=== PATIENT | male | born 1940 | race Caucasian/White ===

== ENCOUNTER 2017-03-05 16:37 | Inpatient (IN) | payer MEDICARE, BC ==
[~2017-03-05] VITALS: Ht 182.9 cm; Wt 105.9 kg
[2017-03-05 16:39] VITALS: BP 152/90; PULSE 67; RESP 12; TEMP 98.2; O2SAT 99
[2017-03-05] MEDS ORDERED: FLUT1INH7 INH (17:20)
[2017-03-05] MEDS ORDERED: ESOM1CAP16 PO (17:20)
[2017-03-05] MEDS ORDERED: LISI10TA3 PO (17:20)
[2017-03-05] MEDS ORDERED: PRAS10TA PO (17:20)
[2017-03-05] MEDS ORDERED: METO100T PO (17:20)
[2017-03-05] MEDS ORDERED: ASPI81CH6 CHEW (17:20)
[2017-03-05] MEDS ORDERED: ATOR80TA45 PO (17:20)
[2017-03-05] MEDS ORDERED: VENTAER INH (17:20)
[2017-03-05] MEDS ORDERED: GABA300C5 PO (17:20)
[2017-03-05] MEDS ORDERED: FINA5TAB2 PO (17:20)
[2017-03-05] MEDS ORDERED: CRANCAP2 PO (17:22)
[2017-03-05] MEDS ORDERED: MIRA3350 PO (17:22)
[2017-03-05] MEDS ORDERED: FISH1000 (17:22)
[2017-03-05] MEDS ORDERED: MULTTAB67 PO (17:22)
--- NOTE | 2017-03-05 18:00 | RADRPT ---
EXAM DATE/TIME: 03/05/2017 17:45 [facility] COMPARISON: No previous studies available for comparison. INDICATIONS : Shortness of breath. MEDICAL HISTORY : Hypertension. Gastroesophageal reflux disease. Myocardial infarction. Coronary artery disease, As thma. SURGICAL HISTORY : Cholecystectomy. Disc replaced. ENCOUNTER: Initial ACUITY: 2 days PAIN SCORE: 3/10 LOCATION: Bilateral chest FINDINGS: A single view of the chest demonstrates minimal bibasilar linear densities. Heart borderline enlarged . The cardiomediastinal contours are unremarkable. Osseous structures are intact. CONCLUSION: Bibasilar subsegmental atelectasis. Bradley Simmons MD on March 05, 2017 at 17:58 Board Certified Radiologist. This report was verified electronically.
--- NOTE | 2017-03-05 18:06 | PD ---
HPI Chief Complaint: Respiratory Distress Time Seen by Provider: 17:32 Travel History International Travel<30 days: No Contact w/Intl Traveler<30days: No Traveled to known affect area: No History of Present Illness HPI 68-year-old male with a history of CAD with stents , asthma, YOON on CPAP presents emergency department complaining of increased shortness of breath that started about 2 PM today. Patient states that he was sitting in his chair when this episode started. States he took his Ventolin and had worsening of his symptoms. Says this episode resolved on its own but still feels more short of breath than normal. Denies chest pain, nausea, vomiting, diarrhea, abdominal pain, back pain, unusual cough. Says he takes Breo in Ventolin for his asthma. Says he saw his research quality assurance specialist in November where he was diagnosed with asthma and he has due for stress test this month with his mobile architect. Patient does not know his ejection fraction on echocardiogram. He is on Effient daily after his cardiac stent placement. Patient also says that he has "too many red blood cells" in receives regular blood draws for this. Also states that he has an ' anterior blood clot' to his posterior left knee. Denies leg pain PFSH Past Medical History Asthma: Yes Blood Disorders: Yes Cardiovascular Problems: Yes Coronary Artery Disease: Yes GERD: Yes Hypertension: Yes Medical other: Yes (CLOGGED ARTERY L LEG) Myocardial Infarction: Yes Tetanus Vaccination: Unknown Influenza Vaccination: Yes Past Surgical History Cholecystectomy: Yes Coronary Stent: Yes (X2) Neurologic Surgery: Yes (HERNIATED DISC SX, DISC REPLACEMENT) Social History Alcohol Use: Yes (BEER DAILY) Tobacco Use: No Substance Use: No Allergies-Medications (Allergen,Severity, Reaction): Coded Allergies: chocolate flavor (Verified Allergy, Unknown, 03/05/17) milk (Verified Allergy, Unknown, 03/05/17) orange juice (Verified Allergy, Unknown, 03/05/17) peanut (Verified Allergy, Unknown, 03/05/17) Uncoded Allergies: granulated sugar (Allergy, Unknown, 03/05/17) Reported Meds & Prescriptions Reported Meds & Active Scripts Active Reported Multiple Vitamin 1 Tab 1 Tab PO DAILY Fish Oil ([place]-3 Fatty Acids) 340 Mg-1,000 Mg Cap Cranberry Urinary Comfort (Vitamins C & E) 1 Cap 2 Cap PO DAILY Miralax Powder (Polyethylene Glycol 3350 Powder) 17 Gm Powd 17 Gm PO DAILY Mix and dissolve one measuring cap-ful (17 grams) in water or juice. Ventolin Hfa 18 GM Inh (Albuterol Sulfate) 90 Mcg/Act Aer 2 Puff INH Q4-6H PRN Breo Ellipta Inh (Fluticasone/Vilanterol) 200-25 Mcg/Act Inh 1 Puff INH DAILY Use daily at the same time. Finasteride 5 Mg Tab 5 Mg PO DAILY Do not crush. Lisinopril 10 Mg Tab 10 Mg PO DAILY Atorvastatin (Atorvastatin Calcium) 80 Mg Tab 80 Mg PO HS Gabapentin 300 Mg Cap 300 Mg PO BID Aspirin Low Dose (Aspirin) 81 Mg Chew 81 Mg CHEW DAILY Metoprolol Tartrate 100 Mg Tab 150 Mg PO DAILY Effient (Prasugrel) 10 Mg Tab 10 Mg PO DAILY Esomeprazole DR 40 Mg Capdr 40 Mg PO DAILY Review of Systems Except as stated in HPI: all other systems reviewed are Neg Physical Exam Narrative GENERAL: WD, WN in NAD, 5-6 word dyspnea SKIN: Warm and dry. HEAD: Atraumatic. Normocephalic. EYES: Pupils equal and round. No scleral icterus. No injection or drainage. ENT: No nasal bleeding or discharge. Mucous membranes pink and moist. NECK: Trachea midline. No JVD. No lymphadenopathy CARDIOVASCULAR: Regular rate and rhythm. RESPIRATORY: No accessory muscle use. Clear to auscultation. Breath sounds equal bilaterally. GASTROINTESTINAL: Abdomen soft, non-tender, nondistended. MUSCULOSKELETAL: Extremities without clubbing, cyanosis, or edema. No obvious deformities. Homans sign negative bilaterally NEUROLOGICAL: Awake and alert. No obvious cranial nerve deficits. Motor grossly within normal limits. Five out of 5 muscle strength in the arms and legs. Normal speech. PSYCHIATRIC: Appropriate mood and affect; insight and judgment normal. Data Data Last Documented VS Vital Signs Date Time Temp Pulse Resp B/P (MAP) Pulse Ox O2 Delivery O2 Flow Rate FiO2 03/05/17 17:15 65 18 96 Room Air 03/05/17 16:39 98.2 152/90 (110) Orders Orders Complete Blood Count With Diff (03/05/17 17:39) Comprehensive Metabolic Panel (03/05/17 17:39) B-Type Natriuretic Peptide (03/05/17 17:39) Act Partial Throm Time (Ptt) (03/05/17 17:39) Prothrombin Time / Inr (Pt) (03/05/17 17:39) Magnesium (Mg) (03/05/17 17:39) Troponin I (03/05/17 17:39) Urinalysis - C+S If Indicated (03/05/17 17:39) Influenzae A/B Antigen (03/05/17 17:39) Iv Access Insert/Monitor (03/05/17 17:39) Electrocardiogram (03/05/17 17:39) Ecg Monitoring (03/05/17 17:39) Oximetry (03/05/17 17:39) Chest, Single Ap (03/05/17 17:39) D-Dimer (03/05/17 18:06) Ct Pulmonary Angiogram (03/05/17 19:20) Iohexol 350 Inj (Omnipaque 350 Inj) (03/05/17 20:00) Admit Order (Ed Use Only) (03/05/17 20:50) Labs Laboratory Tests Test 03/05/17 17:44 03/05/17 19:30 White Blood Count 8.2 TH/MM3 Red Blood Count 5.42 MIL/MM3 Hemoglobin 15.9 GM/DL Hematocrit 47.4 % Mean Corpuscular Volume 87.5 FL Mean Corpuscular Hemoglobin 29.3 PG Mean Corpuscular Hemoglobin Concent 33.5 % Red Cell Distribution Width 14.2 % Platelet Count 252 TH/MM3 Mean Platelet Volume 9.5 FL Neutrophils (%) (Auto) 71.6 % Lymphocytes (%) (Auto) 18.3 % Monocytes (%) (Auto) 6.8 % Eosinophils (%) (Auto) 2.3 % Basophils (%) (Auto) 1.0 % Neutrophils # (Auto) 5.9 TH/MM3 Lymphocytes # (Auto) 1.5 TH/MM3 Monocytes # (Auto) 0.6 TH/MM3 Eosinophils # (Auto) 0.2 TH/MM3 Basophils # (Auto) 0.1 TH/MM3 CBC Comment DIFF FINAL Differential Comment Prothrombin Time 10.8 SEC Prothromb Time International Ratio 1.1 RATIO Activated Partial Thromboplast Time 25.7 SEC D-Dimer Quantitative (PE/DVT) 2.51 MG/L FEU Blood Urea Nitrogen 21 MG/DL Creatinine 1.16 MG/DL Random Glucose 82 MG/DL Total Protein 8.6 GM/DL Albumin 4.1 GM/DL Calcium Level 9.1 MG/DL Magnesium Level 2.4 MG/DL Alkaline Phosphatase 62 U/L Aspartate Amino Transf (AST/SGOT) 20 U/L Alanine Aminotransferase (ALT/SGPT) 37 U/L Total Bilirubin 0.4 MG/DL Sodium Level 142 MEQ/L Potassium Level 3.9 MEQ/L Chloride Level 109 MEQ/L Carbon Dioxide Level 25.8 MEQ/L Anion Gap 7 MEQ/L Estimat Glomerular Filtration Rate 61 ML/MIN Troponin I LESS THAN 0.02 NG/ML B-Type Natriuretic Peptide 34 PG/ML Urine Color YELLOW Urine Turbidity CLEAR Urine pH 6.0 Urine Specific [place] 1.016 Urine Protein NEG mg/dL Urine Glucose (UA) NEG mg/dL Urine Ketones NEG mg/dL Urine Occult Blood NEG Urine Nitrite NEG Urine Bilirubin NEG Urine Urobilinogen LESS THAN 2.0 MG/DL Urine Leukocyte Esterase NEG Urine RBC 1 /hpf Urine WBC 1 /hpf Urine Squamous Epithelial Cells <1 /hpf Urine Mucus FEW /lpf Microscopic Urinalysis Comment CULT NOT INDICATED Urine Opiates Screen NEG Urine Barbiturates Screen NEG Urine Amphetamines Screen NEG Urine Benzodiazepines Screen NEG Urine Cocaine Screen NEG Urine Cannabinoids Screen NEG MDM Medical Decision Making Medical Screen Exam Complete: Yes Emergency Medical Condition: Yes Differential Diagnosis asthma exacerbation, NSTEMI, PE Narrative Course 68-year-old male with a history of CAD with stents , asthma, YOON on CPAP presents emergency department complaining of increased shortness of breath that started about 2 PM today. Patient states that he was sitting in his chair when this episode started. States he took his Ventolin and had worsening of his symptoms. Says this episode resolved on its own but still feels more short of breath than normal. Denies chest pain, nausea, vomiting, diarrhea, abdominal pain, back pain, unusual cough. Says he takes Breo in Ventolin for his asthma. Says he saw his research quality assurance specialist in November where he was diagnosed with asthma and he has due for stress test this month with his mobile architect. Patient does not know his ejection fraction on echocardiogram. He is on Effient daily after his cardiac stent placement. Patient also says that he has "too many red blood cells" in receives regular blood draws for this. Also states that he has an ' artery blood clot' to his posterior left knee. Denies leg pain. States he did take a BASA today. Vital signs stable without tachycardia or hypoxia. EKG demonstrates sinus rhythm without ST elevation or depression. Laboratory Tests Test 03/05/17 17:44 03/05/17 19:30 White Blood Count 8.2 TH/MM3 Red Blood Count 5.42 MIL/MM3 Hemoglobin 15.9 GM/DL Hematocrit 47.4 % Mean Corpuscular Volume 87.5 FL Mean Corpuscular Hemoglobin 29.3 PG Mean Corpuscular Hemoglobin Concent 33.5 % Red Cell Distribution Width 14.2 % Platelet Count 252 TH/MM3 Mean Platelet Volume 9.5 FL Neutrophils (%) (Auto) 71.6 % Lymphocytes (%) (Auto) 18.3 % Monocytes (%) (Auto) 6.8 % Eosinophils (%) (Auto) 2.3 % Basophils (%) (Auto) 1.0 % Neutrophils # (Auto) 5.9 TH/MM3 Lymphocytes # (Auto) 1.5 TH/MM3 Monocytes # (Auto) 0.6 TH/MM3 Eosinophils # (Auto) 0.2 TH/MM3 Basophils # (Auto) 0.1 TH/MM3 CBC Comment DIFF FINAL Differential Comment Prothrombin Time 10.8 SEC Prothromb Time International Ratio 1.1 RATIO Activated Partial Thromboplast Time 25.7 SEC D-Dimer Quantitative (PE/DVT) 2.51 MG/L FEU Blood Urea Nitrogen 21 MG/DL Creatinine 1.16 MG/DL Random Glucose 82 MG/DL Total Protein 8.6 GM/DL Albumin 4.1 GM/DL Calcium Level 9.1 MG/DL Magnesium Level 2.4 MG/DL Alkaline Phosphatase 62 U/L Aspartate Amino Transf (AST/SGOT) 20 U/L Alanine Aminotransferase (ALT/SGPT) 37 U/L Total Bilirubin 0.4 MG/DL Sodium Level 142 MEQ/L Potassium Level 3.9 MEQ/L Chloride Level 109 MEQ/L Carbon Dioxide Level 25.8 MEQ/L Anion Gap 7 MEQ/L Estimat Glomerular Filtration Rate 61 ML/MIN Troponin I LESS THAN 0.02 NG/ML B-Type Natriuretic Peptide 34 PG/ML Urine Color YELLOW Urine Turbidity CLEAR Urine pH 6.0 Urine Specific [place] 1.016 Urine Protein NEG mg/dL Urine Glucose (UA) NEG mg/dL Urine Ketones NEG mg/dL Urine Occult Blood NEG Urine Nitrite NEG Urine Bilirubin NEG Urine Urobilinogen LESS THAN 2.0 MG/DL Urine Leukocyte Esterase NEG Urine RBC 1 /hpf Urine WBC 1 /hpf Urine Squamous Epithelial Cells <1 /hpf Urine Mucus FEW /lpf Microscopic Urinalysis Comment CULT NOT INDICATED DDIMER positive. Ordered CT pulmonary angiogram for evaluation of pulmonary embolism as his shortness of breath a quick onset at rest. Last Impressions CT Angiography 03/05/17 1920 Signed Impressions: Service Date/Time: Sunday, March 05, 2017 19:57 - CONCLUSION: 1. No evidence for pulmonary embolism. 2. Bibasilar densities likely atelectasis. 3. Coronary artery calcifications. 4. Mild thoracic aortic aneurysm measures 4.3 cm. Bradley Simmons MD Chest X-Ray 03/05/17 1739 Signed Impressions: Service Date/Time: Sunday, March 05, 2017 17:45 - CONCLUSION: Bibasilar subsegmental atelectasis. Bradley Simmons MD Pt does not recall a history of a diagnosis of thoracic aortic aneurysm however , he is a poor historian. His is not available to answer my question regarding the chronicity of this. Nitro paste administered for possible ACS-induced SOB. Pt required O2 administration today. Note that he does not normally require O2 at home. Patient will be admitted to observation for shortness of breath with a history of significant coronary artery disease. In addition, he is requiring oxygen use in the ED secondary to SOB. He normally does not require oxygen therapy at home. Diagnosis Primary Impression: Shortness of breath at rest Admitting Information Admitting Physician Requests: Observation Condition: Stable Sharla Balbuena Mar 05, 2017 18:06
[2017-03-05 18:12] LABS: AUTOMATED NEUTROPHIL # 5.9 TH/MM3 (1.8-7.7); BASOPHIL # 0.1 TH/MM3 (0-0.2); EOSINOPHIL # 0.2 TH/MM3 (0-0.4); EOSINOPHIL % 2.3 % (0.0-4.0); HEMATOCRIT 47.4 % (39.0-51.0); HEMOGLOBIN 15.9 GM/DL (13.0-17.0); LYMPH % 18.3 % (9.0-44.0); LYMPHOCYTE # 1.5 TH/MM3 (1.0-4.8); MEAN CELL VOLUME 87.5 FL (80.0-100.0); MEAN CORPUSCULAR HEMOGLOBIN 29.3 PG (27.0-34.0); MEAN CORPUSCULAR HGB CONC 33.5 % (32.0-36.0); MEAN PLATELET VOLUME 9.5 FL (7.0-11.0); MONO % 6.8 % (0.0-8.0); MONOCYTE # 0.6 TH/MM3 (0-0.9); NEUT % 71.6 % (16.0-70.0); PLATELET COUNT 252 TH/MM3 (150-450); RED BLOOD COUNT 5.42 MIL/MM3 (4.50-5.90); RED CELL DISTRIBUTION WIDTH 14.2 % (11.6-17.2); WHITE BLOOD COUNT 8.2 TH/MM3 (4.0-11.0)
[2017-03-05 18:13] LABS: INTERNATIONAL NORMALIZED RATIO 1.1 RATIO; PROTHROMBIN TIME - PATIENT 10.8 SEC (9.8-11.6)
[2017-03-05 18:24] LABS: ALBUMIN 4.1 GM/DL (3.4-5.0); ALT (GPT) 37 U/L (12-78); AST (GOT) 20 U/L (15-37); BICARBONATE 25.8 MEQ/L (21.0-32.0); BLOOD UREA NITROGEN 21 MG/DL (7-18); CALCIUM 9.1 MG/DL (8.5-10.1); CHLORIDE 109 MEQ/L (98-107); CREATININE 1.16 MG/DL (0.60-1.30); GLOMERULAR FILTRATION RATE 61 ML/MIN (>89); GLUCOSE,RANDOM 82 MG/DL (74-106); MAGNESIUM 2.4 MG/DL (1.5-2.5); SODIUM (NA) 142 MEQ/L (136-145)
[2017-03-05 18:28] LABS: ALKALINE PHOSPHATASE 62 U/L (45-117); TOTAL BILIRUBIN ADULT 0.4 MG/DL (0.2-1.0); TOTAL PROTEIN 8.6 GM/DL (6.4-8.2); TROPONIN I LESS THAN 0.02 NG/ML (0.02-0.05)
--- NOTE | 2017-03-05 19:21 | PD ---
Data Data Last Documented VS Vital Signs Date Time Temp Pulse Resp B/P (MAP) Pulse Ox O2 Delivery O2 Flow Rate FiO2 03/05/17 17:15 65 18 96 Room Air 03/05/17 16:39 98.2 152/90 (110) Orders Orders Complete Blood Count With Diff (03/05/17 17:39) Comprehensive Metabolic Panel (03/05/17 17:39) B-Type Natriuretic Peptide (03/05/17 17:39) Act Partial Throm Time (Ptt) (03/05/17 17:39) Prothrombin Time / Inr (Pt) (03/05/17 17:39) Magnesium (Mg) (03/05/17 17:39) Troponin I (03/05/17 17:39) Urinalysis - C+S If Indicated (03/05/17 17:39) Influenzae A/B Antigen (03/05/17 17:39) Iv Access Insert/Monitor (03/05/17 17:39) Electrocardiogram (03/05/17 17:39) Ecg Monitoring (03/05/17 17:39) Oximetry (03/05/17 17:39) Chest, Single Ap (03/05/17 17:39) D-Dimer (03/05/17 18:06) Ct Pulmonary Angiogram (03/05/17 19:20) Iohexol 350 Inj (Omnipaque 350 Inj) (03/05/17 20:00) Admit Order (Ed Use Only) (03/05/17 20:50) Labs Laboratory Tests Test 03/05/17 17:44 03/05/17 19:30 White Blood Count 8.2 TH/MM3 Red Blood Count 5.42 MIL/MM3 Hemoglobin 15.9 GM/DL Hematocrit 47.4 % Mean Corpuscular Volume 87.5 FL Mean Corpuscular Hemoglobin 29.3 PG Mean Corpuscular Hemoglobin Concent 33.5 % Red Cell Distribution Width 14.2 % Platelet Count 252 TH/MM3 Mean Platelet Volume 9.5 FL Neutrophils (%) (Auto) 71.6 % Lymphocytes (%) (Auto) 18.3 % Monocytes (%) (Auto) 6.8 % Eosinophils (%) (Auto) 2.3 % Basophils (%) (Auto) 1.0 % Neutrophils # (Auto) 5.9 TH/MM3 Lymphocytes # (Auto) 1.5 TH/MM3 Monocytes # (Auto) 0.6 TH/MM3 Eosinophils # (Auto) 0.2 TH/MM3 Basophils # (Auto) 0.1 TH/MM3 CBC Comment DIFF FINAL Differential Comment Prothrombin Time 10.8 SEC Prothromb Time International Ratio 1.1 RATIO Activated Partial Thromboplast Time 25.7 SEC D-Dimer Quantitative (PE/DVT) 2.51 MG/L FEU Blood Urea Nitrogen 21 MG/DL Creatinine 1.16 MG/DL Random Glucose 82 MG/DL Total Protein 8.6 GM/DL Albumin 4.1 GM/DL Calcium Level 9.1 MG/DL Magnesium Level 2.4 MG/DL Alkaline Phosphatase 62 U/L Aspartate Amino Transf (AST/SGOT) 20 U/L Alanine Aminotransferase (ALT/SGPT) 37 U/L Total Bilirubin 0.4 MG/DL Sodium Level 142 MEQ/L Potassium Level 3.9 MEQ/L Chloride Level 109 MEQ/L Carbon Dioxide Level 25.8 MEQ/L Anion Gap 7 MEQ/L Estimat Glomerular Filtration Rate 61 ML/MIN Troponin I LESS THAN 0.02 NG/ML B-Type Natriuretic Peptide 34 PG/ML Urine Color YELLOW Urine Turbidity CLEAR Urine pH 6.0 Urine Specific [place] 1.016 Urine Protein NEG mg/dL Urine Glucose (UA) NEG mg/dL Urine Ketones NEG mg/dL Urine Occult Blood NEG Urine Nitrite NEG Urine Bilirubin NEG Urine Urobilinogen LESS THAN 2.0 MG/DL Urine Leukocyte Esterase NEG Urine RBC 1 /hpf Urine WBC 1 /hpf Urine Squamous Epithelial Cells <1 /hpf Urine Mucus FEW /lpf Microscopic Urinalysis Comment CULT NOT INDICATED Urine Opiates Screen NEG Urine Barbiturates Screen NEG Urine Amphetamines Screen NEG Urine Benzodiazepines Screen NEG Urine Cocaine Screen NEG Urine Cannabinoids Screen NEG [facility] Medical Record Reviewed: Yes Supervised Visit with FIDEL: Yes Interpretation(s) Last Impressions CT Angiography 03/05/17 1920 Signed Impressions: Service Date/Time: Sunday, March 05, 2017 19:57 - CONCLUSION: 1. No evidence for pulmonary embolism. 2. Bibasilar densities likely atelectasis. 3. Coronary artery calcifications. 4. Mild thoracic aortic aneurysm measures 4.3 cm. Bradley Simmons MD Chest X-Ray 03/05/17 1739 Signed Impressions: Service Date/Time: Sunday, March 05, 2017 17:45 - CONCLUSION: Bibasilar subsegmental atelectasis. Bradley Simmons MD Narrative Course I, Dr. Ward, have reviewed the advance practice practitioner's documentation and am in agreement, met with the patient face to face, made the diagnosis, and the medical decision making was done by me. The patient was initially evaluated by Tori. Please see their complete history and physical. *My assessment and Findings: The patient presents with a history of shortness of breath that worsened earlier today. During the course of the patients emergency department visit, the patients history, examination, and differential diagnosis were reviewed with the patient. The patient was placed on a child monitor with oximetry and frequent blood pressure monitoring. The patient had IV access obtained and blood work sent for analysis. An EKG done on arrival shows a sinus rhythm heart rate of 61 , no acute ST segment elevation or depression, T waves are inverted in lead 3 and aVF. The patient was initially provided nitroglycerin 1 inch the chest wall. The patient reports that he did take his usual aspirin earlier today. The patients laboratory studies were reviewed and remarkable for a white count of 8.2, hemoglobin 15.9, platelets 252 with 71.6 neutrophils, CMP is remarkable for chloride of 109, BUN 21, GFR 61, troponin less than 0.02, BNP 34, PT PTT within normal limits, d-dimer elevated at 2.51, CTA to rule out PE was ordered. Urinalysis is unremarkable. Radiology studies were reviewed and remarkable for a chest x-ray that shows a bi -basilar subsegmental atelectasis, CTA shows no evidence for pulmonary embolism , by bibasilar densities likely atelectasis, coronary artery calcifications noted, mild thoracic aortic aneurysm measuring 4.3 cm. The patient has a history of coronary artery disease. The patient will be admitted to the hospital for shortness of breath requiring supplemental oxygen, rule out serial cardiac enzyme protocol given that the shortness of breath could be related to an atypical acute coronary syndrome. The patients results were discussed with the patient, including the plan of care. I explained that further testing and/ or monitoring is indicated based on the patients history, examination, and/ or laboratory findings. Therefore, I recommended admission for additional evaluation. The patient expressed understanding and was agreeable with this plan. The patient was admitted to the hospital in stable condition and sent to a bed under the care of family practice residents. Diagnosis Primary Impression: Shortness of breath Additional Impression: History of coronary artery disease Admitting Information Admitting Physician Requests: Observation Aruna Ward MD Mar 05, 2017 19:21
[2017-03-05 19:41] LABS: BILIRUBIN, URINE NEG (NEG); BLOOD, URINE NEG (NEG); GLUCOSE,URINE NEG (NEG); KETONE, URINE NEG (NEG); MUCUS URINE FEW /lpf (OCC); NITRITE,URINE NEG (NEG); SQUAMOUS EPITHELIAL CELL URINE <1 /hpf (0-5); URINE COLOR YELLOW (YELLW/STRAW); URINE LEUKOCYTE ESTERASE NEG (NEG)
[2017-03-05] MEDS ORDERED: IOHEXOL 350 MG/ML 10 ML VIAL (for RAD DIAG) IVCONTRAST ONE (20:00)
--- NOTE | 2017-03-05 20:13 | RADRPT ---
EXAM DATE/TIME: 03/05/2017 19:57 [facility] COMPARISON: No previous studies available for comparison. INDICATIONS : Shortness of breath; rule out pulmonary embolus. IV CONTRAST: 70 cc Omnipaque 350 (iohexol) IV RADIATION DOSE: CTDIvol (mGy) MEDICAL HISTORY : Cardiovascular disease. Hypertension. Deep venous thrombosis. SURGICAL HISTORY : Cholecystectomy. ENCOUNTER: Initial ACUITY: 1 week PAIN SCALE: 0/10 LOCATION: chest TECHNIQUE: Volumetric scanning of the chest was performed using a pulmonary embolism protocol MIP images were re constructed. Using automated exposure control and adjustment of the mA and/or kV according to patien t size, radiation dose was kept as low as reasonably achievable to obtain optimal diagnostic quality images. DICOM format image data is available electronically for review and comparison. Follow-up recommendations for detected pulmonary nodules are based at a minimum on nodule size and pa tient risk factors according to Fleischner Society Guidelines. FINDINGS: PULMONARY ARTERIES: No filling defects are seen in the pulmonary arteries through the segmental level. LUNGS: There is no consolidation or pneumothorax . No concerning pulmonary nodule is visualized. Scattered bibasilar densities likely atelectasis. PLEURAE: There is no pleural thickening or pleural effusion. MEDIASTINUM: No evidence of mediastinal or hilar adenopathy/mass. Extensive coronary artery calcifications. Athero sclerotic disease of the thoracic aorta. Ascending thoracic aorta measures 4.3 cm in dimension. MUSCULOSKELETAL: Within normal limits for patient age. MISCELLANEOUS: The visualized upper abdominal organs demonstrate bilateral renal low densities, some of which are co mplex the left kidney. Cholecystectomy clips. CONCLUSION: 1. No evidence for pulmonary embolism. 2. Bibasilar densities likely atelectasis. 3. Coronary artery calcifications. 4. Mild thoracic aortic aneurysm measures 4.3 cm. Bradley Simmons MD on March 05, 2017 at 20:07 Board Certified Radiologist. This report was verified electronically.
[2017-03-05 20:52] VITALS: BP 131/88; PULSE 60; RESP 18; O2SAT 98
[2017-03-05] MEDS ORDERED: NITROGLYCERIN 2% OINT 1 GM PACKET TOPICAL ONE (21:00)
--- NOTE | 2017-03-05 21:27 | HHI.HP ---
[facility] Service Family Medicine Primary Care Physician Non-Staff Admission Diagnosis SOB on O2 Diagnoses: International Travel<30 Days: No Contact w/Intl Traveler<30days: No Known Affected Area: No History of Present Illness Mr. Gallagher is a 76 yo M presenting to the ED with 1 week history of SOB. Patient states that was in his normal state of health prior to 1 week ago when he had two dizzy spells. Patient states that he felt weak/that he may fall and probably sat down in a chair. Symptoms resolved until he tried to arise from the chair again later. Denies blacking out or sensation that the room was spinning. Denied chest pain, LOC or falls. Since then has been progressively more SOB/fatigued, both rest as well as on exertion. At baseline, he able to walk long distances/perform all daily activities with no SOB, but now he has SOB with minimal exertion. Patient has also noted that he has trouble napping/ falling asleep as he often awakes abruptly to catch his breath. Denies orthopnea /worsening SOB with laying flat. Of note he does use a CPAP machine at night. Patient reports postnasal drip but otherwise has no specific complaints.Denies fever, chills, CP, Cough, peripheral edema, N/V, diarrhea, constipation, bloody stools, abdominal pain, dysuria. Patient and his are living in [place] for several months during the winter. Plan on returning to [place] next month. (Sony Ortega MD R1) Review of Systems Constitutional: DENIES: Fever, Weight gain, Chills Ears, nose, mouth, throat: DENIES: Running Nose Respiratory: COMPLAINS OF: Shortness of breath, DENIES: Cough, Sputum production Cardiovascular: COMPLAINS OF: Dyspnea on Exertion, DENIES: Chest pain, Syncope , Lower Extremity Edema, Orthopnea Gastrointestinal: DENIES: Abdominal pain, Bloody stools, Constipation, Diarrhea , Nausea, Vomiting Genitourinary: DENIES: Hematuria, Dysuria Integumentary: DENIES: Rash Hematologic/lymphatic: DENIES: Lymphadenopathy Neurologic: DENIES: Headache, Localized weakness Psychiatric: DENIES: Hallucinations (Sony Ortega MD R1) Past Family Social History Past Medical History CAD - stents in 2007 HTN BPH GERD PAD - told he has arterial blockage in L leg - considering bypass Erythrocytosis - sees oncologist for occasional phlebotomy roughly every several months. Last seen in January 2017 Episode of Transient global amnesia 3 years ago Had pneumonia vaccine, flu shot this year Past Surgical History Coronary artery stent in 2007 Cholecystectomy 2011 Herniated disc repair 2005 (Sony Ortega MD R1) Allergies: Coded Allergies: chocolate flavor (Verified Allergy, Unknown, 03/05/17) milk (Verified Allergy, Unknown, 03/05/17) orange juice (Verified Allergy, Unknown, 03/05/17) peanut (Verified Allergy, Unknown, 03/05/17) Uncoded Allergies: granulated sugar (Allergy, Unknown, 03/05/17) Family History Mother - HTN Father - at young age from possible stroke Sister of cancer - colon, renal Other sister living Social History From [facility], living in [place] for 2 months Lives with No pets Drinks 1-2 beers with dinner, none this week No tobacco use since age of 18 No illicit drug use (Sony Ortega MD R1) Physical Exam Vital Signs Vital Signs Date Time Temp Pulse Resp B/P (MAP) Pulse Ox O2 Delivery O2 Flow Rate FiO2 03/05/17 20:52 60 18 131/88 (102) 98 Nasal Cannula 2.00 03/05/17 17:15 65 18 96 Room Air 03/05/17 16:39 98.2 67 12 152/90 (110) 99 Physical Exam GENERAL: This is a well-nourished, well-developed patient sitting upright in bed with nasal cannula in place in no apparent distress. SKIN: No rashes, ecchymoses or lesions. Cool and dry. HEAD: Atraumatic. Normocephalic. No temporal or scalp tenderness. EYES: Pupils equal round and reactive. Extraocular motions intact. No scleral icterus. No injection or drainage. ENT: Nose without bleeding, purulent drainage or septal hematoma. Throat without erythema, tonsillar hypertrophy or exudate. Uvula midline. Airway patent. NECK: Trachea midline. No JVD. Roughly 1 cm tender submandibular lymph node on the left side. Supple, nontender, no meningeal signs. CARDIOVASCULAR: Regular rate and rhythm without murmurs, gallops, or rubs. RESPIRATORY: Clear to auscultation. Breath sounds equal bilaterally. No wheezes , rales, or rhonchi. Nonlabored breathing GASTROINTESTINAL: Abdomen soft, non-tender, nondistended. No hepato-splenomegaly , or palpable masses. No guarding. MUSCULOSKELETAL: Extremities without clubbing, cyanosis, or edema. No joint tenderness, effusion, or edema noted. No calf tenderness. Negative Homans sign bilaterally. NEUROLOGICAL: Awake and alert. Cranial nerves II through XII intact. Finger to nose ability intact. Motor and sensory grossly within normal limits. Five out of 5 muscle strength in all muscle groups. Normal speech. Laboratory Laboratory Tests Test 03/05/17 17:44 03/05/17 19:30 White Blood Count 8.2 Red Blood Count 5.42 Hemoglobin 15.9 Hematocrit 47.4 Mean Corpuscular Volume 87.5 Mean Corpuscular Hemoglobin 29.3 Mean Corpuscular Hemoglobin Concent 33.5 Red Cell Distribution Width 14.2 Platelet Count 252 Mean Platelet Volume 9.5 Neutrophils (%) (Auto) 71.6 Lymphocytes (%) (Auto) 18.3 Monocytes (%) (Auto) 6.8 Eosinophils (%) (Auto) 2.3 Basophils (%) (Auto) 1.0 Neutrophils # (Auto) 5.9 Lymphocytes # (Auto) 1.5 Monocytes # (Auto) 0.6 Eosinophils # (Auto) 0.2 Basophils # (Auto) 0.1 CBC Comment DIFF FINAL Differential Comment Prothrombin Time 10.8 Prothromb Time International Ratio 1.1 Activated Partial Thromboplast Time 25.7 D-Dimer Quantitative (PE/DVT) 2.51 Blood Urea Nitrogen 21 Creatinine 1.16 Random Glucose 82 Total Protein 8.6 Albumin 4.1 Calcium Level 9.1 Magnesium Level 2.4 Alkaline Phosphatase 62 Aspartate Amino Transf (AST/SGOT) 20 Alanine Aminotransferase (ALT/SGPT) 37 Total Bilirubin 0.4 Sodium Level 142 Potassium Level 3.9 Chloride Level 109 Carbon Dioxide Level 25.8 Anion Gap 7 Estimat Glomerular Filtration Rate 61 Troponin I LESS THAN 0.02 B-Type Natriuretic Peptide 34 Urine Color YELLOW Urine Turbidity CLEAR Urine pH 6.0 Urine Specific Lisman 1.016 Urine Protein NEG Urine Glucose (UA) NEG Urine Ketones NEG Urine Occult Blood NEG Urine Nitrite NEG Urine Bilirubin NEG Urine Urobilinogen LESS THAN 2.0 Urine Leukocyte Esterase NEG Urine RBC 1 Urine WBC 1 Urine Squamous Epithelial Cells <1 Urine Mucus FEW Microscopic Urinalysis Comment CULT NOT INDICATED Date/Time Source Procedure Growth Status 03/05/17 17:47 Nasal Aspirate Influenza Types A,B Antigen (ASTER) - Final NEGATIVE FOR FLU A AND B ANTIGEN.... Complete (Sony Ortega MD R1) Result Diagram: 03/05/17 1744 03/05/17 174 Imaging Last [address] Angiography 03/05/17 1920 Signed Impressions: Service Date/Time: Sunday, March 05, 2017 19:57 - CONCLUSION: 1. No evidence for pulmonary embolism. 2. Bibasilar densities likely atelectasis. 3. Coronary artery calcifications. 4. Mild thoracic aortic aneurysm measures 4.3 cm. Bradley Simmons MD Chest X-Ray 03/05/17 1739 Signed Impressions: Service Date/Time: Sunday, March 05, 2017 17:45 - CONCLUSION: Bibasilar subsegmental atelectasis. Bradley Simmons MD (Sony Ortega MD R1) Caprini VTE Risk Assessment Caprini VTE Risk Assessment: No/Low Risk (score <= 1) (Sony Ortega MD R1) Assessment and Plan Assessment and Plan Patient is a 76-year-old male with a history of CAD, hypertension, GERD and PAD presenting to the ED with a one-week history of progressive shortness of breath following 2 episodes of dizziness. Initial ACS rule out negative. Patient found to have elevated d-dimer on admission, CTA negative for pulmonary embolism, but did show incidental finding of 4.3 cm descending thoracic aortic aneurysm. Chest x-ray significant for bibasilar subsegmental atelectasis. Admitted for 24- hour observation and further workup. Code Status Full code Discussed Condition With Dr. Nash (Sony Ortega MD R1) Problem List: (1) Shortness of breath ICD Codes: R06.02 - Shortness of breath Status: Acute Plan: Patient presenting with a one-week history of progressive shortness of breath on exertion and at rest At baseline is able to ambulate long distances/perform all ADLs with no shortness of breath Not on home oxygen, requiring 2 L nasal cannula on admission Chest x-ray on admission significant for bibasilar subsegmental atelectasis Afebrile on admission, blood cultures pending, lactic acid pending Rapid influenza negative BNP within normal limits Incentive spirometry ordered Scheduled DuoNebs every 4 hours, albuterol every 4 hours as needed Continuing home Breo inhaler ACS workup on admission negative Trending troponins and EKGs D-dimer elevated on admission to 2.51, CTA negative for PE but did show 4.3 cm ascending thoracic aortic aneurysm (patient does not recall a history of this) Vascular surgery consultation for assessment/management recommendations Aortic ultrasound ordered to screen for AAA TSH pending (2) Dizziness ICD Codes: R42 - Dizziness and giddiness Plan: 2 episodes of dizziness (described as feeling weak) one week prior to admission Further syncope workup including: Echocardiogram pending Carotid artery ultrasound pending UDS negative on admission EEG pending Continuous telemetry (3) Aorta aneurysm ICD Codes: I71.9 - Aortic aneurysm of unspecified site, without rupture Plan: Incidental finding on CTA of 4.3 cm ascending thoracic aortic aneurysm History of this unknown to patient on admission Vascular surgery consulted - appreciate recommendations Aortic ultrasound ordered to screen for AAA (4) HTN (hypertension) ICD Codes: I10 - Essential (primary) hypertension Plan: History of hypertension Takes lisinopril 10 mg daily, metoprolol tartrate 150 mg daily - will continue With finding of thoracic aortic aneurysm, goal systolic blood pressure of less than 120 Vasotec 1.25 mg IV when necessary for systolic blood pressure greater than 160, diastolic blood pressure greater than 90 (5) CAD (coronary artery disease) ICD Codes: I25.10 - Atherosclerotic heart disease of craig coronary artery without angina pectoris Plan: Patient with known CAD, status post coronary stents placed in 2007 Lipid profile pending ACS/further workup as described above Continue home atorvastatin 80 mg at night, ASA 81 mg daily (6) PAD (peripheral artery disease) ICD Codes: I73.9 - Peripheral vascular disease, unspecified Plan: Patient reporting history of peripheral artery disease, states he has been evaluated for elective arterial bypass in his left leg Currently not complaining of leg pain Distal pulses intact and equal bilaterally Continuing home Effient 10 mg daily (7) BPH (benign prostatic hyperplasia) ICD Codes: N40.0 - Benign prostatic hyperplasia without lower urinary tract symptoms Plan: Continuing home finasteride (8) FEN Plan: Heart healthy diet No need for IV fluids at this time Replete electrolytes as needed Zofran as needed for nausea Tylenol as needed for fever Protonix for GI prophylaxis Holding further pharmacologic DVT prophylaxis as this time pending vascular surgery evaluation of aneurysm SCDs for now Continuing home Effient 10 mg daily (Sony Ortega MD R1) Sony Ortega MD R1 Mar 05, 2017 21:27 Heather Snow MD Mar 06, 2017 14:14
[2017-03-05 21:58] VITALS: O2SAT 98
[2017-03-05] MEDS ORDERED: SODIUM CHLORIDE 0.9% FLUSH 10 ML FLUSH IV FLUSH PRN (22:00)
[2017-03-05] MEDS ORDERED: ENALAPRILAT 1.25 MG/ML VIAL IV PUSH PRN (22:30)
[2017-03-05 22:57] VITALS: BP_SYST 154; BP_SYST 159; BP_SYST 182; BP_DIAS 84; BP_DIAS 87; BP_DIAS 93; PULSE 55; RESP 17; TEMP 97.6; O2SAT 96
--- NOTE | 2017-03-05 22:57 | RADRPT ---
EXAM DATE/TIME: 03/05/2017 22:16 [facility] COMPARISON: No previous studies available for comparison. INDICATIONS : Syncope. MEDICAL HISTORY : Myocardial infarction. Hypertension. Gastroesophageal reflux disease. Herniated disc. Asthma. Dyspnea . SURGICAL HISTORY : Cholecystectomy. Back surgery. Coronary stent. ENCOUNTER: Initial ACUITY: 1 day PAIN SCORE: 2/10 LOCATION: Bilateral neck PEAK SYSTOLIC VELOCITIES (cm/sec): ICA/CCA RATIO: Right: 1.1 Left: 0.8 ICA: Right: 62.5 Left: 58.2 CCA: Right: 54.5 Left: 72.1 ECA: Right: 86.2 Left: 68.8 VERTEBRAL: Right: absent Left: 62.9 antegrade Elevated flow velocities and ICA/CCA ratios have been found to correlate with increased degrees of vessel stenosis, calculated as percentage of diameter relative to a normal segment of distal ICA/CCA FINDINGS: RIGHT CAROTID: No significant stenosis is visualized. The waveforms are within normal limits. LEFT CAROTID: No significant stenosis is visualized. The waveforms are within normal limits. VERTEBRAL ARTERIES: Antegrade flow is seen in left vertebral artery. Right vertebral artery not seen. MISCELLANEOUS: None. CONCLUSION: 1. No hemodynamically significant stenosis in either carotid artery. 2. Nonvisualization right vertebral artery. Bradley Simmons MD on March 05, 2017 at 22:54 Board Certified Radiologist. This report was verified electronically.
[2017-03-06] VITALS (7 sets, daily range): BP systolic 102–126; BP diastolic 68–80; PULSE 52–69; RESP 17–18; TEMP 95.4–97.9; O2SAT 92–96
[2017-03-06] MEDS: ATORVASTATIN 80 MG TAB PO SCH ×2 (00:01→21:38)
[2017-03-06] MEDS: GABAPENTIN 300 MG CAP PO SCH ×3 (00:01→21:38)
[2017-03-06 06:01] LABS: AUTOMATED NEUTROPHIL # 3.7 TH/MM3 (1.8-7.7); BASOPHIL % 0.7 % (0.0-2.0); EOSINOPHIL # 0.2 TH/MM3 (0-0.4); HEMATOCRIT 43.7 % (39.0-51.0); HEMOGLOBIN 14.6 GM/DL (13.0-17.0); LYMPH % 25.9 % (9.0-44.0); LYMPHOCYTE # 1.6 TH/MM3 (1.0-4.8); MEAN CELL VOLUME 86.7 FL (80.0-100.0); MEAN CORPUSCULAR HGB CONC 33.5 % (32.0-36.0); MEAN PLATELET VOLUME 9.6 FL (7.0-11.0); MONO % 8.1 % (0.0-8.0); MONOCYTE # 0.5 TH/MM3 (0-0.9); NEUT % 61.3 % (16.0-70.0); PLATELET COUNT 225 TH/MM3 (150-450); RED BLOOD COUNT 5.04 MIL/MM3 (4.50-5.90); RED CELL DISTRIBUTION WIDTH 14.3 % (11.6-17.2); WHITE BLOOD COUNT 6.1 TH/MM3 (4.0-11.0)
[2017-03-06 06:19] LABS: BICARBONATE 27.6 MEQ/L (21.0-32.0); CALCIUM 8.6 MG/DL (8.5-10.1); CREATININE 1.03 MG/DL (0.60-1.30)
[2017-03-06 06:28] LABS: CHOLESTEROL/ HDL RATIO 3.01 RATIO; HDL CHOLESTEROL 44.1 MG/DL (40.0-60.0)
[2017-03-06] MEDS ORDERED: RESP: ALBUTEROL 2.5 MG/IPRATROPIUM 0.5 MG NEB (SCH) NEB (08:00)
--- NOTE | 2017-03-06 08:24 | RADRPT ---
EXAM DATE/TIME: 03/06/2017 07:48 [facility] COMPARISON: US CAROTID ARTERIES, March 05, 2017, 22:16. INDICATIONS : Aneurysm. MEDICAL HISTORY : Myocardial infarction. Hypertension. Gastroesophageal reflux disease. Herniated disc. Asthma. Dyspnea . SURGICAL HISTORY : Cholecystectomy. Coronary stent. Back surgery. ENCOUNTER: Initial ACUITY: 1 day PAIN SCORE: 0/10 LOCATION: Abdomen. MEASUREMENTS: (AP x TRANSVERSE) PROXIMAL: 2.1 x 1.7 cm MID: 1.9 x 1.5 cm DISTAL: 1.5 x 1.5 cm RIGHT ILIAC: 1.4 x 1.1 cm LEFT ILIAC: 0.9 x 1.1 cm FINDINGS: AORTA: There is moderate diffuse atherosclerotic plaquing. Doppler evaluation within normal limits. IVC: Within normal limits. CONCLUSION: 1. No abdominal aortic aneurysm. Size measurements are given above. Judah Nelson MD on March 06, 2017 at 8:21 Board Certified Radiologist. This report was verified electronically.
--- NOTE | 2017-03-06 08:48 | HHI.FPPN ---
Subjective Subjective Patient seen and examined with the resident team this am. Case reviewed and discussed Please refer to resident H&P for further details regarding HPI, ROS, PMH, SurgHx , SocHx In summary, patient is a 76yoM with a history of CAD s/p stent placement, HTN, PAD presenting with one week history of weakness, shortness of breath. CTA done in the ED demonstrating ascending aorta aneurysm 4.3cm. Upon evaluation of the patient, he reports feeling about the same as on admission He does have HULL, +orthostatics No chest pain. [facility] Objective Objective Laboratory Tests - Abnormals Test 03/05/17 17:44 03/05/17 19:30 03/06/17 00:53 03/06/17 03:23 Neutrophils (%) (Auto) 71.6 % D-Dimer Quantitative (PE/DVT) 2.51 MG/L FEU Blood Urea Nitrogen 21 MG/DL 22 MG/DL Total Protein 8.6 GM/DL Chloride Level 109 MEQ/L 109 MEQ/L Estimat Glomerular Filtration Rate 61 ML/MIN 70 ML/MIN Troponin I LESS THAN 0.02 NG/ML LESS THAN 0.02 NG/ML Urine Mucus FEW /lpf Monocytes (%) (Auto) 8.1 % Vital Signs 03/05/17 03/05/17 03/05/17 03/05/17 16:39 17:15 20:52 21:58 Temp 98.2 Pulse 67 65 60 Resp 12 18 18 B/P (MAP) 152/90 (110) 131/88 (102) Pulse Ox 99 96 98 98 O2 Delivery Room Air Nasal Cannula Nasal Cannula O2 Flow Rate 2.00 2.00 03/05/17 03/05/17 03/06/17 03/06/17 22:48 22:57 03:15 03:35 Temp 97.6 97.5 Pulse 55 56 54 Resp 17 17 B/P (MAP) 182/87 (118) 126/80 (95) 154/93 (113) 159/84 (109) Pulse Ox 96 96 03/06/17 08:29 Temp 95.4 Pulse 63 Resp 18 B/P (MAP) 115/71 (86) Pulse Ox 92 Physical exam GENERAL: wdwn male, resting in bed, talkative, speaking in full sentences SKIN: Warm and dry. No rashes, lesions HEAD: Normocephalic. AT EYES: No scleral icterus. No injection or drainage. ENT: OP clear. MMM NC in place. NECK: Supple, trachea midline. No JVD or lymphadenopathy. CARDIOVASCULAR: Regular rate and rhythm without audible murmurs, gallops, or rubs. RESPIRATORY: Breath sounds equal breath sounds bilaterally. Poor air movement. No accessory muscle use. GASTROINTESTINAL: Abdomen soft, non-tender, nondistended. No rebound, guarding. Normal active BS MUSCULOSKELETAL: No cyanosis, or edema. No calf tenderness BACK: Nontender without obvious deformity. No CVA tenderness. NEURO: Awake and alert. Normal speech. CN grossly intact Assessment Assessment 76yoM admitted with: Shortness of breath, suspect acute Asthma/COPD exacerbation 4.3cm aneurysm noted on CTA Chest CAD s/p stenting PAD Elevated DDimer Bradycardia HTN BPH PLAN PLAN Prednisone Resume home asthma/COPD meds PFTs Supplemental oxygen as needed 2D echo Orthostatics Abdominal ultrasound Vascular consult to make recommendations re: aneurysm, appreciate expertise Resume home meds as appropriate PT Patient seen and examined. Case reviewed and discussed Agree with plan of care as discussed with me and documented in the resident note. Heather Snow MD Mar 06, 2017 08:48
[2017-03-06] MEDS ORDERED: METOPROLOL TARTRATE 100 MG TAB PO SCH (09:00)
[2017-03-06] MEDS: SODIUM CHLORIDE 0.9% FLUSH 10 ML FLUSH IV FLUSH SCH ×2 (09:00→21:38)
[2017-03-06] MEDS ORDERED: NON-FORMULARY DRUG (Vitamins C & E (Cranberry Urinary Comfort) 2 CAP) PO SCH (09:00)
[2017-03-06] MEDS: PRASUGREL 10 MG TAB PO SCH (09:45)
[2017-03-06] MEDS: LISINOPRIL 10 MG TAB PO SCH (09:45)
[2017-03-06] MEDS: ASPIRIN 81 MG CHEW TAB CHEW SCH (09:46)
[2017-03-06] MEDS: MULTIVITAMIN TAB PO SCH (09:46)
[2017-03-06] MEDS: POLYETHYLENE GLYCOL 17 GM PKG PO SCH (09:46)
[2017-03-06] MEDS: FINASTERIDE 5 MG TAB PO SCH (09:46)
[2017-03-06] MEDS: PANTOPRAZOLE SOD 40 MG DELAYED RELEASE TAB PO SCH (09:46)
[2017-03-06] MEDS: FLUTICASONE 200 MCG/VILANTEROL 25 MCG INHALER INH SCH (09:47)
[2017-03-06] MEDS: METOPROLOL TARTRATE 50 MG TAB PO SCH ×2 (09:48→21:38)
[2017-03-06] MEDS: predniSONE 20 MG TAB PO SCH (11:11)
--- NOTE | 2017-03-06 16:12 | ECHRPT ---
Indication: syncope CONCLUSIONS Normal left ventricular size. Estimated EF 60-65% [id number] mitral valve regurgitation. No aortic valve regurgitation. No aortic valve stenosis. There is mild tricuspid valve regurgitation. The estimated pulmonary arterial pressure is __ mmHg. The pulmonary valve is not well visualized. BP: / HR: Rhythm: MEASUREMENTS (Male / Female) Normal Values Technical Quality:Fair 2D ECHO LV Diastolic Diameter PLAX 5.0 cm 4.2 - 5.9 / 3.9 - 5.3 cm LV Systolic Diameter PLAX 3.7 cm IVS Diastolic Thickness 1.5 cm 0.6 - 1.0 / 0.6 - 0.9 cm LVPW Diastolic Thickness 1.4 cm 0.6 - 1.0 / 0.6 - 0.9 cm LV Relative Wall Thickness 0.6 RV Internal Dim ED PLAX 3.3 cm M-MODE Aortic Root Diameter MM 3.6 cm LA Systolic Diameter MM 4.3 cm LA Ao Ratio MM 1.2 AV Cusp Separation MM 2.1 cm DOPPLER LV E' Lateral Velocity 6.1 cm/s LV E' Septal Velocity 6.7 cm/s FINDINGS LEFT VENTRICLE Normal left ventricular size. The left ventricular systolic function is normal with an estimated ejection fraction in the range of 60-65%. RIGHT VENTRICLE Normal right ventricular size and systolic function. LEFT ATRIUM The left atrial size is normal. RIGHT ATRIUM The right atrial size is normal. ATRIAL SEPTUM Normal atrial septal thickness without atrial level shunting by limited color doppler interrogation. AORTA The aortic root and proximal ascending aorta are normal in size on limited imaging. MITRAL VALVE Structurally normal mitral valve. [id number] mitral valve regurgitation. AORTIC VALVE Trileaflet aortic valve. No aortic valve regurgitation. No aortic valve stenosis. TRICUSPID VALVE Structurally normal tricuspid valve. There is mild tricuspid valve regurgitation. The estimated pulmonary arterial pressure is __ mmHg. PULMONARY VALVE The pulmonary valve is not well visualized. VESSELS The inferior vena cava is normal in size. PERICARDIUM No pericardial effusion. Brett Rodrigez MD (Electronically Signed) Final Date:06 March 2017 16:11
[2017-03-06] MEDS: RESP: ALBUTEROL 2.5 MG/3 ML NEB (PRN) NEB (17:15)
--- NOTE | 2017-03-06 19:37 | EKG ---
Date Performed: 03/06/2017 Time Performed: 03:33:08 PTAGE: 76 years EKG: SINUS BRADYCARDIA INFERIOR MYOCARDIAL INFARCTION ABNORMAL ECG PREVIOUS TRACING : 03/05/2017 18.00 Since previous tracing, no significant change noted DOCTOR: Yasmin Ham Interpretating Date/Time 03/06/2017 19:36:41
--- NOTE | 2017-03-06 19:37 | EKG ---
Date Performed: 03/05/2017 Time Performed: 18:00:01 PTAGE: 76 years EKG: Sinus rhythm NORMAL ECG NO PREVIOUS TRACING DOCTOR: Yasmin Ham Interpretating Date/Time 03/06/2017 19:36:28
--- NOTE | 2017-03-06 19:39 | EKG ---
Date Performed: 03/06/2017 Time Performed: 05:50:33 PTAGE: 76 years EKG: Sinus rhythm POSSIBLE INFERIOR MYOCARDIAL INFARCTION BORDERLINE ECG PREVIOUS TRACING : 03/06/2017 @ 03.33.08 Since previous tracing, no significant change noted DOCTOR: Yasmin Ham Interpretating Date/Time 03/06/2017 19:37:50
--- NOTE | 2017-03-06 19:40 | EKG ---
Date Performed: 03/06/2017 Time Performed: 06:56:09 PTAGE: 76 years EKG: SINUS BRADYCARDIA BORDERLINE ECG PREVIOUS TRACING : 03/06/2017 05.50 Since previous tracing, no significant change noted DOCTOR: Yasmin Ham Interpretating Date/Time 03/06/2017 19:38:04
--- NOTE | 2017-03-06 19:58 | MG ---
cc: SB HOLLIS M.D. Lab No: Date: 03/06/2017 Age: Sex: M Race: REQUESTING PHYSICIAN INTRODUCTION An EEG was obtained on this 76-year-old patient with history of dizziness. DESCRIPTION The patient is described as awake. The EEG is showing 8-10 per second alpha rhythms centrally and posteriorly. There is beta activity centrally and frontally. Photic stimulation showed no change though probable some driving response bilaterally. There is artifact in the anterior head regions. Hyperventilation was not performed. INTERPRETATION Normal awake EEG. MD JACKY Resendez/KK /7:10 PM /7:51 PM
--- NOTE | 2017-03-06 20:29 | MB ---
cc: CALIN WICK MD DATE OF CONSULTATION 03/06/[address] Wick / vascular surgery REASON FOR CONSULTATION Peripheral vascular disease and thoracic aortic aneurysm. HISTORY OF THE PRESENT ILLNESS This 76-year-old gentleman is admitted with shortness of breath and dizzy spells. He felt weak and fainted. Symptoms resolved later. He did not lose consciousness. He is known to have severe COPD and baseline he can walk some distance through the grocery store and such but that is about it. He states that sometimes he wakes up in the middle of the night and he is out of breath. In the process of workup he was found to have thoracic aortic aneurysm and he has a history of peripheral vascular disease, hence the consultation. PAST MEDICAL HISTORY Is that of: 1. Coronary artery disease. 2. Hypertension. 3. Peripheral arterial disease, left more than right. 4. Erythrocytosis. PAST SURGICAL HISTORY Is that of: 1. Cholecystectomy. 2. Lumbar laminectomy. 3. Coronary artery stenting in 2007. ALLERGIES PEANUTS, ORANGE JUICE, MILK AND CHOCOLATE. . SOCIAL HISTORY The patient does not smoke, does not drink except little socially. He is a retired computer programming manager. PHYSICAL EXAMINATION GENERAL: Physical examination reveals a very pleasant 76-year-old gentleman. HEENT: Normocephalic. No trauma to the head. Pupils equally reactive. Extraocular muscles intact. NECK: Supple. Bilateral carotid pulses. No bruits. No masses in the neck. CHEST: Bilateral breath sounds decreased over both lung laguna and the patient is using accessory muscles to breathe. He is barrel-chested and clearly has stigmata of COPD. HEART: Regular rhythm. ABDOMEN: Soft. Somewhat obese. Active bowel sounds. EXTREMITIES: The patient has palpable right femoral pulse and no left femoral pulse. Bilateral posterior tibial on palpation as well as dorsalis pedis, but posterior tibial are much stronger. Popliteal only by Doppler. Feet are warm. No signs of limb-threatening ischemia in the form of either a necrosis ulcers or ischemic pain at rest. NEUROLOGIC: The patient is grossly intact. I have reviewed laboratory and diagnostic procedures. ASSESSMENT This 76-year-old gentleman has multiple medical problems, he is obviously vasculopath, COPD is the primary activity limiting factor here and the patient gets short of breath as above-noted, so he can never walk the full distance however, he feels some pain in his left calf while walking through the grocery store. There is no question in my mind that patient has probably some degree of inflow and outflow disease in the left groin, possibly EI occlusion and SFA stenosis and/or occlusion, considering I am not feeling femoral pulses left. Nonetheless, at this point the patient has no signs of limb threatening ischemia and any procedure endovascular or open should be carefully considered against the patient's general condition as well as local factors, so from that point I do not believe that the patient should have any procedure right now for this is not limiting his lifestyle and there is no imminent limb loss. As far as abdominal aortic aneurysm is concerned this is only about 3.4 cm in size and the patient is a pretty large fellow so his aorta is only slightly smaller normally. This is more of a dilatation and I would not do anything about it right now as long the patient has good blood pressure control. The types of an ascending aneurysms that may need attention are those causing dilatation of fibromuscular ring of the heart and therefore aortic insufficiency which according to the ECHO, this patient does not have therefore this point I only recommend CTA with runoff as a baseline study and to follow the patient. CTA ordered, will review and advise. I thank you much for referral. Critical care 40 minutes. Calin ALICIA /6:41 PM /8:03 PM GALILEA
[2017-03-06] MEDS: MONTELUKAST SODIUM 10 MG TAB PO SCH (21:38)
[2017-03-07] VITALS (7 sets, daily range): BP systolic 107–141; BP diastolic 66–96; PULSE 48–73; RESP 12–20; TEMP 95.8–97.9; O2SAT 95–98
[2017-03-07 04:26] LABS: HEMATOCRIT 43.9 % (39.0-51.0); HEMOGLOBIN 14.8 GM/DL (13.0-17.0); MEAN CELL VOLUME 86.8 FL (80.0-100.0); MEAN CORPUSCULAR HEMOGLOBIN 29.1 PG (27.0-34.0); MEAN CORPUSCULAR HGB CONC 33.6 % (32.0-36.0); MEAN PLATELET VOLUME 9.2 FL (7.0-11.0); PLATELET COUNT 223 TH/MM3 (150-450); RED BLOOD COUNT 5.06 MIL/MM3 (4.50-5.90); RED CELL DISTRIBUTION WIDTH 14.2 % (11.6-17.2); WHITE BLOOD COUNT 8.5 TH/MM3 (4.0-11.0)
[2017-03-07 04:58] LABS: BICARBONATE 24.8 MEQ/L (21.0-32.0); CALCIUM 8.3 MG/DL (8.5-10.1); CREATININE 1.17 MG/DL (0.60-1.30)
--- NOTE | 2017-03-07 08:03 | HHI.FPPN ---
Subjective Remarks Patient was lying comfortably in bed this morning. He states that he no longer feels dizzy, he was able to sit up and have dinner with his yesterday, and he also walked to the bathroom without feeling dizzy. However, he continues to have shortness of breath which has only improved by 5% since admission. He would really like to feel better in terms of his breathing status. (Yuliya Nash MD R2) Objective Vitals Vital Signs Date Time Temp Pulse Resp B/P (MAP) Pulse Ox O2 Delivery O2 Flow Rate FiO2 03/06/17 23:24 Nasal Cannula 2.00 03/06/17 20:03 97.9 18 112/70 (84) 92 109/76 (87) 03/06/17 15:20 69 03/06/17 15:11 96.0 69 18 117/68 (84) 93 03/06/17 11:59 96.4 52 102/69 (80) 96 03/06/17 08:29 95.4 63 18 115/71 (86) 92 (Yuliya Nash MD R2) Result Diagram: 03/07/17 0353 03/07/17 0353 Imaging Last 72 hours Impressions Aorta Ultrasound 03/06/17 0000 Signed Impressions: Service Date/Time: Monday, March 06, 2017 07:48 - CONCLUSION: 1. No abdominal aortic aneurysm. Size measurements are given above. Judah Nelson MD CT Angiography 03/05/17 1920 Signed Impressions: Service Date/Time: Sunday, March 05, 2017 19:57 - CONCLUSION: 1. No evidence for pulmonary embolism. 2. Bibasilar densities likely atelectasis. 3. Coronary artery calcifications. 4. Mild thoracic aortic aneurysm measures 4.3 cm. Bradley Simmons MD Chest X-Ray 03/05/17 2859 Signed Impressions: Service Date/Time: Sunday, March 05, 2017 17:45 - CONCLUSION: Bibasilar subsegmental atelectasis. Bradley Simmons MD Carotid Artery Ultrasound 03/05/17 0000 Signed Impressions: Service Date/Time: Sunday, March 05, 2017 22:16 - CONCLUSION: 1. No hemodynamically significant stenosis in either carotid artery. 2. Nonvisualization right vertebral artery. Bradley Simmons MD Objective Remarks GENERAL: wdwn male, resting in bed, talkative, speaking in full sentences SKIN: Warm and dry. No rashes, lesions HEAD: Normocephalic. AT EYES: No scleral icterus. No injection or drainage. ENT: OP clear. MMM NC in place. NECK: Supple, trachea midline. No JVD or lymphadenopathy. CARDIOVASCULAR: Regular rate and rhythm without audible murmurs, gallops, or rubs. RESPIRATORY: Breath sounds equal breath sounds bilaterally. Poor air movement. No accessory muscle use. GASTROINTESTINAL: Abdomen soft, mildly tender to palpation in the right upper quadrant, nondistended. No rebound, guarding. Normal active BS MUSCULOSKELETAL: No cyanosis, or edema. No calf tenderness BACK: Nontender without obvious deformity. No CVA tenderness. NEURO: Awake and alert. Normal speech. CN grossly intact (Yuliya Nash MD R2) A/P Assessment and Plan Patient is a 76-year-old male with a history of CAD, hypertension, GERD and PAD presenting to the ED with a one-week history of progressive shortness of breath following 2 episodes of dizziness. Initial ACS rule out negative. Patient found to have elevated d-dimer on admission, CTA negative for pulmonary embolism, but did show incidental finding of 4.3 cm descending thoracic aortic aneurysm. Chest x-ray significant for bibasilar subsegmental atelectasis. He was initially admitted for 24-hour observation and further workup, but due to slow improvement in symptoms, he would be admitted for management of his shortness of breath. Pulmonary has been consulted to assist with management. Will discuss with Dr. Snow Discharge Planning Pending clinical improvement in shortness of breath (Yuliya Nash MD R2) Attending Attestation Patient seen and examined. Case reviewed and discussed Agree with plan of care as discussed with me and documented in the resident note. Discussed with at the bedside, encouraged patient to get assistance and move around more, get up to chair, etc. (Heather Snow MD) Problem List: (1) Shortness of breath ICD Codes: R06.02 - Shortness of breath Status: Resolved Plan: Patient presented with a one-week history of progressive shortness of breath on exertion and at rest At baseline is able to ambulate long distances/perform all ADLs with no shortness of breath Not on home oxygen, requiring 2 L nasal cannula during hospitalization - O2 saturation in the low 90s Pulmonology consulted to assist with management - appreciate recommendations Previous workup: Chest x-ray on admission significant for bibasilar subsegmental atelectasis Afebrile on admission, blood cultures pending, lactic acid pending Rapid influenza negative BNP within normal limits Incentive spirometry ordered Scheduled DuoNebs every 4 hours, albuterol every 4 hours as needed Continuing home Breo inhaler ACS workup on admission negative Trending troponins and EKGs D-dimer elevated on admission to 2.51, CTA negative for PE but did show 4.3 cm ascending thoracic aortic aneurysm (patient does not recall a history of this) Vascular surgery consultation for assessment/management recommendations Aortic ultrasound ordered to screen for AAA TSH to WNL at 2.56 (2) Dizziness ICD Codes: R42 - Dizziness and giddiness Plan: 2 episodes of dizziness (described as feeling weak) one week prior to admission Further syncope workup including: -Echocardiogram on 03/06/17 shows normal left ventricular size, EF of 60-65%, trace to mild mitral valve regurgitation, no aortic valve regurgitation/stenosis , mild tricuspid valve regurgitation -Carotid artery ultrasound showed no hemodynamically significant stenosis in either carotid -EEG normal -Continuous telemetry (3) Aorta aneurysm ICD Codes: I71.9 - Aortic aneurysm of unspecified site, without rupture Plan: Incidental finding on CTA of 4.3 cm ascending thoracic aortic aneurysm; history of this unknown to patient on admission Vascular surgery consulted - appreciate recommendations: Plan for CTA with runoff to establish a baseline Aortic ultrasound was ordered to screen for AAA and was negative (4) HTN (hypertension) ICD Codes: I10 - Essential (primary) hypertension Plan: History of hypertension Continue lisinopril 10 mg daily, metoprolol tartrate 50 mg PO BID With finding of thoracic aortic aneurysm, goal systolic blood pressure of less than 120 Vasotec 1.25 mg IV when necessary for systolic blood pressure greater than 160, diastolic blood pressure greater than 90 (5) CAD (coronary artery disease) ICD Codes: I25.10 - Atherosclerotic heart disease of [place] coronary artery without angina pectoris Plan: Patient with known CAD, status post coronary stents placed in 2007 Lipid profile pending ACS/further workup as described above Continue home atorvastatin 80 mg at night, ASA 81 mg daily (6) PAD (peripheral artery disease) ICD Codes: I73.9 - Peripheral vascular disease, unspecified Plan: Patient reporting history of peripheral artery disease, states he has been evaluated for elective arterial bypass in his left leg Currently not complaining of leg pain Distal pulses intact and equal bilaterally Continuing home Effient 10 mg daily (7) BPH (benign prostatic hyperplasia) ICD Codes: N40.0 - Benign prostatic hyperplasia without lower urinary tract symptoms Plan: Continuing home finasteride 5 mg by mouth daily (8) FEN Plan: Heart healthy diet No need for IV fluids at this time Replete electrolytes as needed Zofran as needed for nausea Tylenol as needed for fever Protonix for GI prophylaxis Holding further pharmacologic DVT prophylaxis as this time pending vascular surgery evaluation of aneurysm SCDs for now Continuing home Effient 10 mg daily (Yuliya Nash MD R2) Yuliya Nash MD R2 Mar 07, 2017 08:03 Heather Snow MD Mar 07, 2017 17:03
[2017-03-07] MEDS: LISINOPRIL 10 MG TAB PO SCH (09:02)
[2017-03-07] MEDS: PRASUGREL 10 MG TAB PO SCH (09:02)
[2017-03-07] MEDS: GABAPENTIN 300 MG CAP PO SCH ×2 (09:03→21:30)
[2017-03-07] MEDS: predniSONE 20 MG TAB PO SCH (09:03)
[2017-03-07] MEDS: MULTIVITAMIN TAB PO SCH (09:03)
[2017-03-07] MEDS: PANTOPRAZOLE SOD 40 MG DELAYED RELEASE TAB PO SCH (09:03)
[2017-03-07] MEDS: METOPROLOL TARTRATE 50 MG TAB PO SCH ×2 (09:03→21:29)
[2017-03-07] MEDS: FINASTERIDE 5 MG TAB PO SCH (09:03)
[2017-03-07] MEDS: ASPIRIN 81 MG CHEW TAB CHEW SCH (09:03)
[2017-03-07] MEDS: FLUTICASONE 200 MCG/VILANTEROL 25 MCG INHALER INH SCH (09:04)
[2017-03-07] MEDS: POLYETHYLENE GLYCOL 17 GM PKG PO SCH (09:04)
[2017-03-07] MEDS: SODIUM CHLORIDE 0.9% FLUSH 10 ML FLUSH IV FLUSH SCH ×2 (09:04→21:32)
[2017-03-07] MEDS ORDERED: IOHEXOL 350 MG/ML 10 ML VIAL (for RAD DIAG) IVCONTRAST ONE (11:46)
[2017-03-07] MEDS: methylPREDNISolone SOD SUCC 40 MG/1 ML VIAL IV PUSH SCH ×2 (14:27→21:30)
--- NOTE | 2017-03-07 14:35 | RADRPT ---
EXAM DATE/TIME: 03/07/2017 11:30 [facility] COMPARISON: CT PULMONARY ANGIOGRAM, March 05, 2017, 19:57. INDICATIONS : Peripheral vascular disease. Ischemic left leg. IV CONTRAST: 85 cc Omnipaque 350 (iohexol) IV RADIATION DOSE: 6.17 CTDIvol (mGy) MEDICAL HISTORY : Cardiovascular disease. Hypertension. Asthma. SURGICAL HISTORY : Cholecystectomy. ENCOUNTER: Initial ACUITY: 4 - 6 days PAIN SCALE: 5/10 LOCATION: Left leg TECHNIQUE: Volumetric scanning was performed using a multi-row detector CT scanner. The data was post processed with a variety of visualization algorithms including full volume maximum intensity projection, multi -planar sliding thin slab reformation, curved planar reformation, and surface rendering techniques. Using automated exposure control and adjustment of the mA and/or kV according to patient size, radiat ion dose was kept as low as reasonably achievable to obtain optimal diagnostic quality images. DICO M format image data is available electronically for review and comparison. FINDINGS: Abdominal aorta: The celiac and SMA origins are widely patent. There are single renal arteries bilaterally. The renal arteries are widely patent. The infrarenal aorta is normal in caliber. The JAMES is patent. Pelvis: The common iliac, internal iliac and external iliac circulation is widely patent throughout its cours e. There is only mild atherosclerotic plaquing. Right leg: The common femoral, profunda femoral and superficial femoral are widely patent. The popliteal is carreno nt above and below the level of the knee. Distally, there is three-vessel runoff. There is delayed im aging from the knee down were all 3 trifurcation vessels are seen. Left leg: The left common femoral is patent. The profunda femoral is patent. There is abrupt occlusion of the s uperficial femoral at the level of the adductor hiatus. The popliteal is occluded down to the trifurc ation. There is reconstitution of the anterior tibial posterior tibial at their origins. CT source data: There are chronic appearing interstitial changes within the lung bases. The solid organs of the abdom en demonstrate a 3.6 cm simple cyst within the liver and multiple simple cysts within the kidneys. Th ere is no free air or free fluid. There is no retroperitoneal adenopathy. Note is made of enlargement of the prostate. The prostate measures at least 8 x 6.5 cm. Note is made of small bilateral inguinal hernias. CONCLUSION: 1. There is abrupt occlusion of the left superficial femoral at the adductor hiatus and extending linda n to the trifurcation. This appears possibly embolic as there is very little diffuse vascular disease . 2. Adequate inflow a variety. 3. Enlargement of the prostate. 4. Multiple renal cysts bilaterally. 5. Enlargement of the prostate. 6. Small bilateral inguinal hernias. Judah Nelson MD on March 07, 2017 at 14:21 Board Certified Radiologist. This report was verified electronically.
[2017-03-07] MEDS: ENOXAPARIN SODIUM 40 MG/0.4 ML SYRINGE SQ SCH (15:55)
--- NOTE | 2017-03-07 18:43 | PD.CAR.PN ---
CVT Progress Note Subjective/Hospital Course: I reviewed the patient's CTA Patient has good flow on the right and vessels are fairly clean but on the left side patient has sudden occlusion of the SFA at the level of the groin and this extends all the way down through the adductor canal to the popliteal artery In face of the NV's of the vessels which appeared to be fairly clean I believe this is a clot Discussed this at length with Dr. Morgan Nelson Suggest patient undergo TPA lysis and if that is not successful he can always have surgical thromboembolectomy Will refer for tPA lysis tomorrow Objective: Vital Signs Date Time Temp Pulse Resp B/P (MAP) Pulse Ox O2 Delivery O2 Flow Rate FiO2 03/07/17 16:00 97.9 56 20 134/96 (109) 95 03/07/17 16:00 56 03/07/17 11:23 96.9 61 18 129/69 (89) 95 03/07/17 08:20 95.8 55 12 141/79 (99) 98 03/07/17 07:08 48 03/06/17 23:24 Nasal Cannula 2.00 03/06/17 20:03 97.9 18 112/70 (84) 92 109/76 (87) Result Diagram: 03/07/17 0353 03/07/17 0353 Calin Hernandez MD Mar 07, 2017 18:43
--- NOTE | 2017-03-07 18:55 | MB ---
cc: KRYSTA CHAPARRO DATE OF CONSULTATION: 03/07/2017 REASON FOR CONSULTATION: Question bronchial asthma. HISTORY OF PRESENT ILLNESS The patient is a 76-year-old male who presented to the emergency room with shortness of breath and dizziness. The patient was feeling quite weak. The patient did not actually have syncope or pass out, however, he remained with exertional dyspnea. He has no orthopnea, no ankle edema. He has obstructive sleep apnea. He is on C-PAP therapy at home. No cough, no expectoration, fever, chills or hemoptysis. PAST MEDICAL HISTORY: 1. Hypertension. 2. Coronary artery disease, post stent placement in 2007. 3. Acid reflux. 4. BPH. 5. Peripheral vascular disease with an episode of transient global amnesia about three years ago. 6. Previous coronary artery stent as well. 7. Previous cholecystectomy. 8. Herniated disc surgery. ALLERGIES: PEANUT ORANGE MILK CHOCOLATE FLAVORS FAMILY HISTORY Positive for hypertension, heart disease, malignancy. SOCIAL HISTORY Remote smoking history, only smoked a few years as a youngster, drinks beer on occasion. REVIEW OF SYSTEMS 12-point review of systems as per HPI and past history otherwise negative. CURRENT MEDICATIONS 1. Intravenous Solu-Medrol. 2. Enoxaparin. 3. Prophylaxis. 4. Monteleukast 10 milligrams daily. 5. Metoprolol. 6. Breo once daily. 7. Atorvastatin. 8. Protonix. 9. Albuterol via nebulizer. 10. Gabapentin. PHYSICAL EXAMINATION: VITAL SIGNS: Temperature 98, pulse 60, respiration 20, blood pressure 130/90. Oxygen saturation 95% on room air. HEENT: Unremarkable. Eyes without icterus. Neck: Without adenopathy, thyroid enlargement, central trachea. Chest: Without dullness to percussion, clear to auscultation. Cardiac: PMI distant, S1-S2 audible. No murmur, no rub. Abdomen: Lax, bowel sounds audible. Extremities: No clubbing, cyanosis or edema. Skin: Normal. No lymphadenopathy. LABORATORY DATA: White count 8000, hemoglobin 14, hematocrit 43, platelets 223,000, sodium 142 this a.m., potassium 3.9, BUN 26, creatinine 1.1, INR 1.1. IMPRESSION 1. Shortness of breath, question bronchial asthma as above. 2. Coronary artery disease, post stent placement. 3. Hypertension. 4. Acid reflux disease. 5. Peripheral vascular disease. 6. Acid reflux disease. 7. History of transient global amnesia three years ago. 8. Near syncope. PLAN The patient is receiving bronchodilator therapy for underlying airway obstruction. Whether he does have an element of permanent obstruction to explain his shortness of breath needs to be further identified. Will proceed with pulmonary function evaluation to assess the patient's pulmonary performance. Meanwhile continue his bronchodilator therapy. He did have a CT angiogram without evidence of pulmonary embolization. I do thank you for asking me to partake in Mr. Gallagher's care. Krysta Chaparro MD WWW/FRANCIS /6:13 PM /6:40 PM
--- NOTE | 2017-03-07 19:27 | RADRPT ---
EXAM DATE/TIME: 03/07/2017 18:01 [facility] COMPARISON: No previous studies available for comparison. INDICATIONS : Right upper quadrant pain. MEDICAL HISTORY : Myocardial infarction. Hypertension. Gastroesophageal reflux disease. Herniated disc. Asthma. Dypne a. SURGICAL HISTORY : Cholecystectomy. Back surgery. Coronary stent. ENCOUNTER: Subsequent ACUITY: 1 week PAIN SCORE: 3/10 LOCATION: Right upper quadrant MEASUREMENTS: LIVER: 15.2 cm length COMMON DUCT: 6 mm RIGHT KIDNEY: 10.4 x 5.2 x 5.3 cm SPLEEN: 8.8 cm length FINDINGS: Mild fatty liver. The numerous prominent right renal cysts. No hydronephrosis identified. Cholecystec dayne. No biliary ductal dilatation. Spleen unremarkable. No free fluid. CONCLUSION: 1. Multiple large right renal cysts. No hydronephrosis a very ductal dilatation. Cholecystectomy. Mil d fatty liver. Adrián Caicedo MD on March 07, 2017 at 19:22 Board Certified Radiologist. This report was verified electronically.
[2017-03-07] MEDS: MONTELUKAST SODIUM 10 MG TAB PO SCH (21:29)
[2017-03-07] MEDS: ATORVASTATIN 80 MG TAB PO SCH (21:30)
[2017-03-08] VITALS (19 sets, daily range): BP systolic 108–148; BP diastolic 54–92; PULSE 47–67; RESP 16–22; TEMP 97.1–97.9; O2SAT 92–99
[2017-03-08] MEDS: methylPREDNISolone SOD SUCC 40 MG/1 ML VIAL IV PUSH SCH (06:06)
[2017-03-08 07:11] LABS: HEMOGLOBIN 14.7 GM/DL (13.0-17.0); MEAN CELL VOLUME 87.3 FL (80.0-100.0); MEAN CORPUSCULAR HEMOGLOBIN 29.2 PG (27.0-34.0); MEAN CORPUSCULAR HGB CONC 33.5 % (32.0-36.0); MEAN PLATELET VOLUME 9.2 FL (7.0-11.0); PLATELET COUNT 232 TH/MM3 (150-450); RED BLOOD COUNT 5.04 MIL/MM3 (4.50-5.90); RED CELL DISTRIBUTION WIDTH 14.1 % (11.6-17.2); WHITE BLOOD COUNT 10.4 TH/MM3 (4.0-11.0)
[2017-03-08 07:33] LABS: BICARBONATE 23.1 MEQ/L (21.0-32.0); CALCIUM 8.8 MG/DL (8.5-10.1); CREATININE 1.08 MG/DL (0.60-1.30)
[2017-03-08] MEDS: MULTIVITAMIN TAB PO SCH (08:36)
[2017-03-08] MEDS: POLYETHYLENE GLYCOL 17 GM PKG PO SCH (08:36)
[2017-03-08] MEDS: ASPIRIN 81 MG CHEW TAB CHEW SCH (08:36)
[2017-03-08] MEDS: FINASTERIDE 5 MG TAB PO SCH (08:36)
[2017-03-08] MEDS: PRASUGREL 10 MG TAB PO SCH (08:36)
[2017-03-08] MEDS: FLUTICASONE 200 MCG/VILANTEROL 25 MCG INHALER INH SCH (08:37)
[2017-03-08] MEDS: SODIUM CHLORIDE 0.9% FLUSH 10 ML FLUSH IV FLUSH SCH (08:37)
[2017-03-08] MEDS: GABAPENTIN 300 MG CAP PO SCH (08:37)
[2017-03-08] MEDS: PANTOPRAZOLE SOD 40 MG DELAYED RELEASE TAB PO SCH (08:37)
[2017-03-08] MEDS: METOPROLOL TARTRATE 50 MG TAB PO SCH (08:37)
[2017-03-08] MEDS: LISINOPRIL 10 MG TAB PO SCH (08:37)
--- NOTE | 2017-03-08 11:42 | HHI.FPPN ---
Subjective Remarks Mr Gallagher had no acute events overnight. He slept a little with the BiPAP machine on but he doesn't like it as much as his home CPAP and his is bringing that in today. He is scheduled for PFT today with Dr Chaparro and Dr Hernandez is starting tPA therapy which will take 48 hours to assess the likely clot in his left SFA. Denies CP, N/V/D, but state he gets out of breath very easily. (Fermin Padron MD R1) Objective Vitals Vital Signs Date Time Temp Pulse Resp B/P (MAP) Pulse Ox O2 Delivery O2 Flow Rate FiO2 03/08/17 09:13 Nasal Cannula 2.00 03/08/17 08:13 49 03/08/17 08:00 Nasal Cannula 2.00 03/08/17 08:00 97.5 62 20 140/87 (104) 94 03/08/17 06:00 97.8 53 16 116/76 (89) 98 03/08/17 04:31 95 30 03/08/17 04:00 51 03/08/17 01:39 97.9 67 16 108/68 (81) 96 03/08/17 00:20 93 30 03/08/17 00:00 50 03/07/17 22:00 95 30 03/07/17 21:34 97.9 66 18 107/66 (80) 95 03/07/17 20:00 Nasal Cannula 2.00 03/07/17 20:00 95 Nasal Cannula 2.00 03/07/17 20:00 73 03/07/17 16:00 97.9 56 20 134/96 (109) 95 03/07/17 16:00 56 I/O 03/07/17 03/07/17 03/07/17 03/08/17 03/08/17 03/08/17 07:00 15:00 23:00 07:00 15:00 23:00 Intake Total 120 ml Output Total 450 ml Balance 120 ml -450 ml Intake Oral 120 ml IV Total 0 ml Output Urine Total 450 ml (Fermin Padron MD R1) Result Diagram: 03/08/17 0550 03/08/17 0550 Objective Remarks GENERAL: wdwn male, sitting up in bed (previously he needed to lay flat), talkative, speaking in full sentences. SKIN: Warm and dry. No rashes, lesions. HEAD: Normocephalic. AT EYES: No scleral icterus. No injection or drainage. ENT: OP clear. MMM NC in place. NECK: Supple, trachea midline. No lymphadenopathy. CARDIOVASCULAR: Bradycardic, regular rhythm without audible murmur, gallop, or rub. RESPIRATORY: Breath sounds equal breath sounds bilaterally. Poor air movement. No accessory muscle use. GASTROINTESTINAL: Abdomen soft, mildly tender to palpation in the right upper quadrant, nondistended. No rebound, guarding. Normal BS. MUSCULOSKELETAL: No cyanosis, or edema. No calf tenderness BACK: Nontender without obvious deformity. No CVA tenderness. NEURO: Awake and alert. Normal speech. CN grossly intact Procedures tPA therapy for thrombolysis of left SFA 03/08-03/09 Medications and IVs Current Medications Medications (Trade) Dose Ordered Sig/[place] Route Start Time Stop Time Status Last Admin (NS Flush) 2 ml UNSCH PRN IV FLUSH 03/05/17 22:00 (NS Flush) 2 ml BID IV FLUSH 03/06/17 09:00 03/08/17 08:37 (Aspirin Chew) 81 mg DAILY CHEW 03/06/17 09:00 03/08/17 08:36 (Lipitor) 80 mg HS PO 03/05/17 22:15 03/07/17 21:30 (Proscar) 5 mg DAILY PO 03/06/17 09:00 03/08/17 08:36 (Breo Ellipta 200-25 Inh) 1 puff DAILY INH 03/06/17 09:00 03/08/17 08:37 (Neurontin) 300 mg BID PO 03/05/17 22:15 03/08/17 08:37 (Prinivil) 10 mg DAILY PO 03/06/17 09:00 03/08/17 08:37 (Miralax) 17 gm DAILY PO 03/06/17 09:00 03/08/17 08:36 (Effient) 10 mg DAILY PO 03/06/17 09:00 03/08/17 08:36 (Protonix) 40 mg DAILY PO 03/06/17 09:00 03/08/17 08:37 (Theragran) 1 tab DAILY PO 03/06/17 09:00 03/08/17 08:36 (Albuterol Neb) 2.5 mg Q4HR WHILE AWAKE NEB PRN NEB 03/05/17 22:15 03/06/17 17:15 (Zofran Inj) 4 mg Q6HR PRN IV PUSH 03/05/17 22:15 (Tylenol) 325 mg Q4H PRN PO 03/05/17 22:15 (Vasotec Inj) 1.25 mg Q6H PRN IV PUSH 03/05/17 22:30 (Lopressor) 50 mg Q12HR PO 03/06/17 10:00 03/08/17 08:37 (Singulair) 10 mg HS PO 03/06/17 21:00 03/07/17 21:29 (SoluMEDROL INJ) 40 mg Q8HR IV PUSH 03/07/17 14:00 03/08/17 06:06 (Lovenox Inj) 40 mg Q24H SQ 03/07/17 15:00 03/07/17 15:55 (Fermin Padron MD R1) Urinary Catheter: No (Fermin Padron MD R1) A/P Assessment and Plan Patient is a 76-year-old male with a history of CAD, hypertension, GERD and PAD with a history of blood clots presenting to the ED with a one-week history of progressive shortness of breath following 2 episodes of dizziness. Initial ACS rule out negative. Patient found to have elevated d-dimer on admission, CTA negative for pulmonary embolism, but did show incidental finding of 4.3 cm descending thoracic aortic aneurysm. Chest x-ray significant for bibasilar subsegmental atelectasis. He was initially admitted for 24-hour observation and further workup, but due to slow improvement in symptoms, he would be admitted for management of his shortness of breath. Pulmonary has been consulted to assist with management. Dr Chaparro will perform PFT today. 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 This intervention will take 48 hours. DARLINE Snow Discharge Planning Pending clinical improvement in shortness of breath (Fermin Padron MD R1) Attending Attestation Patient seen and examined. Case reviewed and discussed Agree with plan of care as discussed with me and documented in the resident note. (Heather Snow MD) Problem List: (1) Shortness of breath ICD Codes: R06.02 - Shortness of breath Status: Resolved Plan: Patient presented with a one-week history of progressive shortness of breath on exertion and at rest At baseline is able to ambulate long distances/perform all ADLs with no shortness of breath Not on home oxygen, requiring 2 L nasal cannula during hospitalization - O2 saturation in the low 90s Pulmonology consulted - appreciate recommendations Dr Chaparro is performing PFTs today Previous workup: Chest x-ray on admission significant for bibasilar subsegmental atelectasis Afebrile on admission, blood cultures pending, lactic acid pending Rapid influenza negative BNP within normal limits Incentive spirometry ordered Scheduled DuoNebs every 4 hours, albuterol every 4 hours as needed Continuing home Breo inhaler ACS workup on admission negative Trending troponins and EKGs D-dimer elevated on admission to 2.51, CTA negative for PE but did show 4.3 cm ascending thoracic aortic aneurysm (patient does not recall a history of this) Vascular surgery consultation for assessment/management recommendations Aortic ultrasound ordered to screen for AAA TSH to WNL at 2.56 (2) Dizziness ICD Codes: R42 - Dizziness and giddiness Plan: 2 episodes of dizziness (described as feeling weak) one week prior to admission Further syncope workup including: -Echocardiogram on 03/06/17 shows normal left ventricular size, EF of 60-65%, trace to mild mitral valve regurgitation, no aortic valve regurgitation/stenosis , mild tricuspid valve regurgitation -Carotid artery ultrasound showed no hemodynamically significant stenosis in either carotid -EEG normal -Continuous telemetry (3) Aorta aneurysm ICD Codes: I71.9 - Aortic aneurysm of unspecified site, without rupture Plan: Incidental finding on CTA of 4.3 cm ascending thoracic aortic aneurysm; history of this unknown to patient on admission Vascular surgery consulted - appreciate recommendations: Plan for CTA with runoff to establish a baseline Aortic ultrasound was ordered to screen for AAA and was negative Dr Hernandez is performing tPA therapy on the likely clot in left SFA - will take 48 hours 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 be managed medically and with close follow-up for imaging (4) HTN (hypertension) ICD Codes: I10 - Essential (primary) hypertension Plan: History of hypertension - normotensive today Continue lisinopril 10 mg daily, metoprolol tartrate 50 mg PO BID With finding of thoracic aortic aneurysm, goal systolic blood pressure of less than 120 Vasotec 1.25 mg IV when necessary for systolic blood pressure greater than 160, diastolic blood pressure greater than 90 (5) CAD (coronary artery disease) ICD Codes: I25.10 - Atherosclerotic heart disease of [place] coronary artery without angina pectoris Plan: Patient with known CAD, status post coronary stents placed in 2007 Lipid profile pending ACS/further workup as described above Continue home atorvastatin 80 mg at night, ASA 81 mg daily (6) PAD (peripheral artery disease) ICD Codes: I73.9 - Peripheral vascular disease, unspecified Plan: Patient reporting history of peripheral artery disease, states he has been evaluated for elective arterial bypass in his left leg Currently not complaining of leg pain Distal pulses intact and equal bilaterally Continuing home Effient 10 mg daily (7) BPH (benign prostatic hyperplasia) ICD Codes: N40.0 - Benign prostatic hyperplasia without lower urinary tract symptoms Plan: Continuing home finasteride 5 mg by mouth daily (8) FEN Plan: Heart healthy diet No need for IV fluids at this time Replete electrolytes as needed Zofran as needed for nausea Tylenol as needed for fever Protonix for GI prophylaxis Holding further pharmacologic DVT prophylaxis as this time pending vascular surgery evaluation of aneurysm SCDs for now Continuing home Effient 10 mg daily (Fermin Padron MD R1) Fermin Padron MD R1 Mar 08, 2017 11:42 Heather Snow MD Mar 08, 2017 16:05
[2017-03-08] MEDS ORDERED: MIDAZOLAM HCL 2 MG/2 ML VIAL ONE ×2 (13:26→15:03)
[2017-03-08] MEDS ORDERED: ceFAZolin 2 GM PREMIX 50 ML ONE (14:48)
[2017-03-08] MEDS: ENOXAPARIN SODIUM 40 MG/0.4 ML SYRINGE SQ SCH (15:00)
[2017-03-08] MEDS ORDERED: IOHEXOL 350 MG/ML 100 ML BTL (for RAD DIAG) OTHER ONE (15:14)
--- NOTE | 2017-03-08 15:33 | PD.RAD ---
Post Procedure Progress Note Pre Procedure Diagnosis: (1) Superficial femoral artery occlusion Post Procedure Diagnosis: (1) Superficial femoral artery occlusion Procedure Date: Mar 08, 2017 Supervising Radiologist: Donovan Baez Proceduralist/Assist: RT Wilma(R), Other Anesthesia: Conscious Sedation Plan of Activity Patient to Unit: [facility] Patient Condition: Good See PACS Report for procedural detail/treatment Donovan Baez MD Mar 08, 2017 15:33
--- NOTE | 2017-03-08 15:48 | RADRPT ---
EXAM DATE/TIME: 03/08/2017 13:02 [facility] COMPARISON: No previous studies available for comparison. INDICATIONS : 76-year-old male with history of suspected subacute left SFA occlusion. Intra-doreen rial thrombolysis has been requested. MEDICAL HISTORY : CAD HTN BPH GERD PAD Erythrocytosis SURGICAL HISTORY : Coronary artery stent Cholecystectomy Herniated disc repair ENCOUNTER: Initial ACUITY: 1 week PAIN SCORE: 4/10 LOCATION: Left calf FLUORO TIME: 15.9 minutes IMAGE SERIES: 10 ACCESS SITE: Right Femoral artery SEDATION TIME: 60 minutes CONTRAST: 1.) 40 cc Omnipaque (iohexol) 350 MEDICATION(S): 1.) 4 mg midazolam (Versed) IV 2.) 200 mcg fentanyl (Sublimaze) IV 3.) 2 g cefazolin (Ancef) IV Intra-procedural antibiotics were given as prescribed above. DEVICE(S): 1.) Right common femoral artery 6FR Angio-Seal PROCEDURE : 1. Ultrasound-guided puncture of the access site. 2. Angiography of the access site prior to closure device. 3. Conscious sedation with continuous EKG and Oximetry monitoring. 4. Percutaneous closure of the access site. 5. Selective catheter placement in the contralateral left SFA with selective angiography 6. Partial recanalization of occluded left SFA and [id number] popliteal arteries with popliteal artery angiography The risks, benefits and alternatives to the procedure were explained and verbal and written consent w as obtained. The site was prepped in sterile fashion. Full sterile technique was used, including ca p, mask, sterile gloves and gown and a large sterile sheet. Hand hygiene and 2% chlorhexidine and/or betadine/alcohol prep was utilized per protocol for cutaneous antisepsis. Sterile gel and sterile p robe cover were utilized for ultrasound guidance. The skin and subcutaneous tissues were infiltrated with local anesthetic solution. With ultrasound and fluoroscopic guidance the selected artery was punctured and a vascular sheath was placed. A 4 [place] flush catheter was advanced into the contralateral proximal left SFA. Pelvic ang iogram was not performed due to availability of recent CTA. Angiography was then performed centered a bout the left thigh. This demonstrates occlusion of the distal SFA just above the abductor canal with prominent mature appearing collaterals. Catheter was exchanged for a 4 [place] Terry catheter whi ch was advanced into the distal left SFA. Next, a V. 18 wire was successfully advanced into the above -knee popliteal artery. This required multiple manipulations with significant resistance at the proxi mal. Catheter was then advanced over the wire and angiography was performed in different obliquities. This demonstrates occlusion of the distal popliteal artery at the level of the ankle with thrombus e xtending to the distal SFA. There are mature-appearing genicular collaterals. Runoff vessels are not demonstrated. However, CTA examination demonstrates reconstitution of the proximal runoff vessels wit h 3 vessel runoff. Therefore, decision was made to terminate the procedure at this time. Wires and ca theters were then removed. Angiography of the common femoral artery was performed for evaluation prior to percutaneous closure d evice placement. Hemostasis was obtained with the prescribed medicated closure device. Conscious sed ation was performed with the prescribed dosages and duration as above in the presence of an independe nt trained radiology nurse to assist in the monitoring of the patient. EKG and oximetry remained sta ble throughout the procedure. CONCLUSION: 1. Distal left above-knee popliteal artery occlusion with plaque and chronic thrombus extending to th e distal SFA with mature genicular collaterals. Given the apparent chronicity of the findings, planne d TPA thrombolysis was not performed. Donovan Baez MD on March 08, 2017 at 15:32 Board Certified Radiologist. This report was verified electronically.
--- NOTE | 2017-03-08 16:36 | PD.CAR.PN ---
CVT Progress Note Subjective/Hospital Course: I reviewed the patient's CTA Patient has good flow on the right and vessels are fairly clean but on the left side patient has sudden occlusion of the SFA at the level of the groin and this extends all the way down through the adductor canal to the popliteal artery In face of the GA's of the vessels which appeared to be fairly clean I believe this is a clot Discussed this at length with Dr. Morgan Nelson Suggest patient undergo TPA lysis and if that is not successful he can always have surgical thromboembolectomy Will refer for tPA lysis tomorrow 03/08/17 Patient was scheduled today to undergo TPA lysis of the left leg clot Once the catheter was inserted its noted that this clot is to take into fibrous to remove and at this point the only option is femoropopliteal bypass Patient does have ischemia to the left leg but no limb threatening changes and reconstituted the blood flow at the popliteal level I'll give an option to have the femoropopliteal bypasses done here or at home [place]. Either option is acceptable as long as its timely Objective: Vital Signs Date Time Temp Pulse Resp B/P (MAP) Pulse Ox O2 Delivery O2 Flow Rate FiO2 03/08/17 09:13 Nasal Cannula 2.00 03/08/17 08:13 49 03/08/17 08:00 Nasal Cannula 2.00 03/08/17 08:00 97.5 62 20 140/87 (104) 94 03/08/17 06:00 97.8 53 16 116/76 (89) 98 03/08/17 04:31 95 30 03/08/17 04:00 51 03/08/17 01:39 97.9 67 16 108/68 (81) 96 03/08/17 00:20 93 30 03/08/17 00:00 50 03/07/17 22:00 95 30 03/07/17 21:34 97.9 66 18 107/66 (80) 95 03/07/17 20:00 Nasal Cannula 2.00 03/07/17 20:00 95 Nasal Cannula 2.00 03/07/17 20:00 73 Labs: Laboratory Tests Test 03/08/17 05:50 03/08/17 14:10 White Blood Count 10.4 TH/MM3 (4.0-11.0) Red Blood Count 5.04 MIL/MM3 (4.50-5.90) Hemoglobin 14.7 GM/DL (13.0-17.0) Hematocrit 44.0 % (39.0-51.0) Mean Corpuscular Volume 87.3 FL (80.0-100.0) Mean Corpuscular Hemoglobin 29.2 PG (27.0-34.0) Mean Corpuscular Hemoglobin Concent 33.5 % (32.0-36.0) Red Cell Distribution Width 14.1 % (11.6-17.2) Platelet Count 232 TH/MM3 (150-450) Mean Platelet Volume 9.2 FL (7.0-11.0) Blood Urea Nitrogen 25 MG/DL (7-18) Creatinine 1.08 MG/DL (0.60-1.30) Random Glucose 114 MG/DL (74-106) Calcium Level 8.8 MG/DL (8.5-10.1) Sodium Level 138 MEQ/L (136-145) Potassium Level 4.3 MEQ/L (3.5-5.1) Chloride Level 107 MEQ/L (98-107) Carbon Dioxide Level 23.1 MEQ/L (21.0-32.0) Anion Gap 8 MEQ/L (5-15) Estimat Glomerular Filtration Rate 66 ML/MIN (>89) Fibrinogen 311 mg/dL (227-377) Result Diagram: 03/08/17 0550 03/08/17 0550 Calin Hernandez MD Mar 08, 2017 16:36
[2017-03-09] VITALS (11 sets, daily range): BP systolic 114–131; BP diastolic 75–87; PULSE 57–84; RESP 16–18; TEMP 97.6–98.2; O2SAT 92–97
[2017-03-09] MEDS: GABAPENTIN 300 MG CAP PO SCH ×3 (00:08→21:48)
[2017-03-09] MEDS: ATORVASTATIN 80 MG TAB PO SCH ×2 (00:08→21:48)
[2017-03-09] MEDS: MONTELUKAST SODIUM 10 MG TAB PO SCH ×2 (00:08→21:48)
[2017-03-09] MEDS: METOPROLOL TARTRATE 50 MG TAB PO SCH ×3 (00:08→21:48)
[2017-03-09] MEDS: methylPREDNISolone SOD SUCC 40 MG/1 ML VIAL IV PUSH SCH ×3 (00:09→21:47)
[2017-03-09] MEDS: SODIUM CHLORIDE 0.9% FLUSH 10 ML FLUSH IV FLUSH SCH ×3 (00:09→21:00)
[2017-03-09 01:43] LABS: AUTOMATED NEUTROPHIL # 10.9 TH/MM3 (1.8-7.7); BASOPHIL % 0.2 % (0.0-2.0); EOSINOPHIL % 0.1 % (0.0-4.0); HEMATOCRIT 42.9 % (39.0-51.0); HEMOGLOBIN 14.3 GM/DL (13.0-17.0); LYMPH % 10.7 % (9.0-44.0); LYMPHOCYTE # 1.4 TH/MM3 (1.0-4.8); MEAN CELL VOLUME 86.3 FL (80.0-100.0); MEAN CORPUSCULAR HEMOGLOBIN 28.7 PG (27.0-34.0); MEAN CORPUSCULAR HGB CONC 33.2 % (32.0-36.0); MEAN PLATELET VOLUME 8.9 FL (7.0-11.0); MONO % 6.5 % (0.0-8.0); MONOCYTE # 0.9 TH/MM3 (0-0.9); NEUT % 82.5 % (16.0-70.0); PLATELET COUNT 213 TH/MM3 (150-450); RED BLOOD COUNT 4.97 MIL/MM3 (4.50-5.90); RED CELL DISTRIBUTION WIDTH 14.2 % (11.6-17.2); WHITE BLOOD COUNT 13.3 TH/MM3 (4.0-11.0)
[2017-03-09 01:57] LABS: ALBUMIN 3.1 GM/DL (3.4-5.0); ALT (GPT) 29 U/L (12-78); AST (GOT) 13 U/L (15-37); BICARBONATE 26.2 MEQ/L (21.0-32.0); BLOOD UREA NITROGEN 24 MG/DL (7-18); CALCIUM 8.1 MG/DL (8.5-10.1); CHLORIDE 111 MEQ/L (98-107); CREATININE 1.12 MG/DL (0.60-1.30); GLOMERULAR FILTRATION RATE 63 ML/MIN (>89); GLUCOSE,RANDOM 124 MG/DL (74-106); SODIUM (NA) 143 MEQ/L (136-145)
[2017-03-09 01:59] LABS: ALKALINE PHOSPHATASE 45 U/L (45-117); TOTAL BILIRUBIN ADULT 0.4 MG/DL (0.2-1.0); TOTAL PROTEIN 6.7 GM/DL (6.4-8.2)
--- NOTE | 2017-03-09 08:58 | HHI.FPPN ---
Subjective Remarks Patient was lying comfortably in bed this morning, nasal cannula in place. He still feels short of breath at rest. He has not had a recent bowel movements. He also had concerns about the urinary catheter that was placed yesterday. (Yuliya Nash MD R2) Objective Vitals Vital Signs Date Time Temp Pulse Resp B/P (MAP) Pulse Ox O2 Delivery O2 Flow Rate FiO2 03/09/17 05:02 98.1 59 18 114/77 (89) 96 03/09/17 04:00 57 03/09/17 00:53 81 03/09/17 00:35 67 03/09/17 00:06 97.9 61 16 114/75 (88) 97 03/08/17 20:41 55 03/08/17 20:14 97.1 57 18 134/83 (100) 99 03/08/17 18:59 58 22 140/80 (100) 97 03/08/17 17:55 60 22 148/86 (106) 97 03/08/17 17:25 54 22 141/92 (108) 98 03/08/17 16:55 56 22 135/80 (98) 97 03/08/17 16:25 52 22 120/54 (76) 95 03/08/17 15:55 47 22 123/62 (82) 94 03/08/17 15:40 47 22 129/75 (93) 94 03/08/17 15:25 50 22 121/78 (92) 92 03/08/17 15:10 97.8 48 22 126/77 (93) 94 03/08/17 09:13 Nasal Cannula 2.00 I/O 03/08/17 03/08/17 03/08/17 03/09/17 03/09/17 03/09/17 07:00 15:00 23:00 07:00 15:00 23:00 Output Total 450 ml 850 ml 700 ml Balance -450 ml -850 ml -700 ml Output Urine Total 450 ml 850 ml 700 ml (Yuliya Nash MD R2) Result Diagram: 03/09/1712903/09/17129 Objective Remarks GENERAL: wdwn male, lying in bed, talkative, speaking in full sentences SKIN: Warm and dry. No rashes, lesions HEAD: Normocephalic. AT EYES: No scleral icterus. No injection or drainage ENT: OP clear. MMM NC in place NECK: Supple, trachea midline. No lymphadenopathy. CARDIOVASCULAR: Bradycardic rate, regular rhythm without audible murmur, gallop , or rub RESPIRATORY: Breath sounds equal bilaterally. Poor air movement. No accessory muscle use GASTROINTESTINAL: Abdomen soft, mildly tender to palpation in the right upper quadrant, nondistended. No rebound, guarding. Normal BS MUSCULOSKELETAL: No cyanosis, or edema. No calf tenderness BACK: Nontender without obvious deformity. No CVA tenderness NEURO: Awake and alert. Normal speech. CN grossly intact Procedures tPA therapy for thrombolysis of left SFA 03/08-03/09 (Yuliya Nash MD R2) A/P Assessment and Plan Patient is a 76-year-old male with a history of CAD, hypertension, GERD and PAD with blood clots that presented to the ED with a one-week history of progressive shortness of breath following 2 episodes of dizziness. Initial ACS rule out negative. Patient was found to have elevated d-dimer on admission and CTA was performed which was negative for pulmonary embolism, but did show incidental finding of 4.3 cm descending thoracic aortic aneurysm. Chest x-ray was also significant for bibasilar subsegmental atelectasis. He was initially admitted for 24-hour observation and further workup, but due to slow improvement in symptoms, he was admitted for management of his shortness of breath. Pulmonary was been consulted to assist with management with plans to perform PFT today. Vascular surgery was consulted for aortic arch aneurysm which only requires close follow-up with imaging for now; however he CTA with runoff was performed that showed occlusion in left SFA that was determined to be a fibrotic clots not amenable to TPA therapy. He is scheduled for surgical thromboembolectomy today 03/09/17. DARLINE Snow Discharge Planning Pending clinical improvement in shortness of breath and pulmonary recommendations (Yuliya Nash MD R2) Attending Attestation Patient seen and examined. Case reviewed and discussed. Agree with plan of care as discussed with me and documented in the resident note. (Heather Snow MD) Problem List: (1) Shortness of breath ICD Codes: R06.02 - Shortness of breath Status: Resolved Plan: Patient presented with a one-week history of progressive shortness of breath on exertion and at rest At baseline is able to ambulate long distances/perform all ADLs with no shortness of breath Not on home oxygen, requiring 2 L nasal cannula during hospitalization - O2 saturation 99% on 2 L Pulmonology consulted - appreciate recommendations Dr Chaparro plans to perform bedside PFTs Previous workup: Chest x-ray on admission significant for bibasilar subsegmental atelectasis Afebrile on admission, blood cultures pending, lactic acid pending Rapid influenza negative BNP within normal limits Incentive spirometry ordered ACS workup on admission negative Trending troponins and EKGs D-dimer elevated on admission to 2.51, CTA negative for PE but did show 4.3 cm ascending thoracic aortic aneurysm (patient does not recall a history of this) Vascular surgery consultation for assessment/management recommendations Aortic ultrasound ordered to screen for AAA TSH to WNL at 2.56 (2) Superficial femoral artery occlusion ICD Codes: I70.209 - Unspecified atherosclerosis of [place] arteries of extremities, unspecified extremity Plan: Vascular surgery consulted - appreciate recommendations * CTA with runoff was performed which showed a clot in the left SFA * Unable to perform tPA lysis under clot, plan for thromboembolectomy today (3) Aorta aneurysm ICD Codes: I71.9 - Aortic aneurysm of unspecified site, without rupture Plan: Incidental finding on CTA of 4.3 cm ascending thoracic aortic aneurysm; history of this unknown to patient on admission Aortic ultrasound was ordered to screen for AAA and was negative Vascular surgery consulted - appreciate recommendations * Thoracic aneurysm aneurysm will be managed medically and with close follow-up for imaging (4) HTN (hypertension) ICD Codes: I10 - Essential (primary) hypertension Plan: History of hypertension - normotensive today Continue lisinopril 10 mg daily, metoprolol tartrate 50 mg PO BID With finding of thoracic aortic aneurysm, goal systolic blood pressure of less than 120 Vasotec 1.25 mg IV when necessary for systolic blood pressure greater than 160, diastolic blood pressure greater than 90 (5) CAD (coronary artery disease) ICD Codes: I25.10 - Atherosclerotic heart disease of [place] coronary artery without angina pectoris Plan: Patient with known CAD, status post coronary stents placed in 2007 Lipid profile pending ACS/further workup as described above Continue home atorvastatin 80 mg at night, ASA 81 mg daily (6) PAD (peripheral artery disease) ICD Codes: I73.9 - Peripheral vascular disease, unspecified Plan: Continuing home Effient 10 mg daily Further management by vascular surgery (7) BPH (benign prostatic hyperplasia) ICD Codes: N40.0 - Benign prostatic hyperplasia without lower urinary tract symptoms Plan: Continue home finasteride 5 mg by mouth daily (8) FEN Plan: Heart healthy diet Oral fluids only Replete electrolytes as needed Zofran as needed for nausea Tylenol as needed for fever Protonix for GI prophylaxis Holding further pharmacologic DVT prophylaxis due to impending surgery SCDs for now (Yuliya Nash MD R2) Yuliya Nash MD R2 Mar 09, 2017 08:58 Heather Snow MD Mar 13, 2017 09:12
[2017-03-09] MEDS: PRASUGREL 10 MG TAB PO SCH (09:00)
[2017-03-09] MEDS: MULTIVITAMIN TAB PO SCH (09:00)
[2017-03-09] MEDS: ASPIRIN 81 MG CHEW TAB CHEW SCH (09:00)
[2017-03-09] MEDS: FLUTICASONE 200 MCG/VILANTEROL 25 MCG INHALER INH SCH (09:00)
[2017-03-09] MEDS: PANTOPRAZOLE SOD 40 MG DELAYED RELEASE TAB PO SCH (09:00)
[2017-03-09] MEDS: LISINOPRIL 10 MG TAB PO SCH (09:00)
[2017-03-09] MEDS: POLYETHYLENE GLYCOL 17 GM PKG PO SCH (09:00)
[2017-03-09] MEDS: FINASTERIDE 5 MG TAB PO SCH (09:00)
[2017-03-09] MEDS ORDERED: HEPARIN SODIUM - SQ 10,000 UNITS/ML VIAL ONE (09:15)
[2017-03-09] MEDS ORDERED: PROTAMINE SULFATE 50 MG/5 ML VIAL ONE (09:16)
[2017-03-09] MEDS: RESP: ALBUTEROL 2.5 MG/3 ML NEB (PRN) NEB (11:05)
[2017-03-09] MEDS ORDERED: SODIUM CHLORID 0.9% 500 ML IV PRN (11:15)
[2017-03-09] MEDS ORDERED: LACTATED RINGER'S 1000 ML IV PRN (11:15)
[2017-03-09] MEDS ORDERED: CHLORHEXIDINE GLUCONATE 2 % 1 PACK (2 CLOTHS) TOPICAL PRN (11:15)
[2017-03-09] MEDS ORDERED: METOPROLOL TARTRATE 25 MG TAB PO PRN (11:15)
[2017-03-09] MEDS ORDERED: POVIDONE IODINE 5% (ANTISEPSIS KIT) 4 APPLICATIONS EACH NARE PRN (11:15)
[2017-03-09] MEDS ORDERED: NEOSTIGMINE 5 MG/5 ML SYRINGE IV PUSH ONE (12:00)
[2017-03-09] MEDS ORDERED: GLYCOPYRROLATE 1 MG/5 ML SYRINGE IV PUSH ONE (12:00)
[2017-03-09] MEDS ORDERED: DEXAMETHASONE SOD PHOS 4 MG/ML VIAL IV ONE (12:00)
[2017-03-09] MEDS ORDERED: ROCURONIUM INJ 50 MG/5 ML SYRINGE IV PUSH ONE (12:00)
[2017-03-09] MEDS ORDERED: PROPOFOL 200 MG/20 ML AMP IV ONE (12:00)
[2017-03-09] MEDS ORDERED: LIDOCAINE HCL 1% PF 5 ML SYRINGE OTHER ONE (12:00)
[2017-03-09] MEDS ORDERED: ONDANSETRON HCL 4 MG/2 ML VIAL IV PUSH ONE (12:00)
[2017-03-09] MEDS ORDERED: LACTATED RINGER'S 1000 ML INJ 2,000 ML IV ONE (12:00)
[2017-03-09] MEDS ORDERED: ceFAZolin INJ 1,000 MG VIAL IV ONE (12:16)
[2017-03-09] MEDS ORDERED: DO NOT ADM ANY ANTICOAGULANT DRUGS PRN (15:01)
[2017-03-09] MEDS ORDERED: *morphine SULFATE 4 MG/ML PERIprocedure ONLY ONE ×2 (15:35→15:59)
--- NOTE | 2017-03-09 17:10 | HHI.PR ---
Subjective Remarks ALERT NO SOB S/P REVASCULARIZATION Objective Vital Signs Date Time Temp Pulse Resp B/P (MAP) Pulse Ox O2 Delivery O2 Flow Rate FiO2 03/09/17 16:41 Nasal Cannula 2.00 03/09/17 08:57 Nasal Cannula 2 03/09/17 08:30 69 03/09/17 08:15 93 Nasal Cannula 2.00 03/09/17 08:15 97.7 68 18 115/83 (94) 93 03/09/17 05:02 98.1 59 18 114/77 (89) 96 03/09/17 04:00 57 03/09/17 00:53 81 03/09/17 00:35 67 03/09/17 00:06 97.9 61 16 114/75 (88) 97 03/08/17 20:41 55 03/08/17 20:14 97.1 57 18 134/83 (100) 99 03/08/17 18:59 58 22 140/80 (100) 97 03/08/17 17:55 60 22 148/86 (106) 97 03/08/17 17:25 54 22 141/92 (108) 98 I/O 03/08/17 03/08/17 03/08/17 03/09/17 03/09/17 03/09/17 07:00 15:00 23:00 07:00 15:00 23:00 Intake Total 2400 ml Output Total 450 ml 850 ml 700 ml 950 ml Balance -450 ml -850 ml -700 ml 1450 ml Other 2400 ml Output Urine Total 450 ml 850 ml 700 ml 700 ml Estimated Blood Loss 250 ml Result Diagram: 03/09/17 01303/09/17 0130 Objective Remarks GENERAL: SKIN: Warm and dry. HEAD: Atraumatic. Normocephalic. EYES: Pupils equal and round. No scleral icterus. No injection or drainage. ENT: No nasal bleeding or discharge. Mucous membranes pink and moist. NECK: Trachea midline. No JVD. CARDIOVASCULAR: Regular rate and rhythm. RESPIRATORY: No accessory muscle use. Clear to auscultation. Breath sounds equal bilaterally. GASTROINTESTINAL: Abdomen soft, non-tender, nondistended. Hepatic and splenic margins not palpable. MUSCULOSKELETAL: Extremities without clubbing, cyanosis, or edema. No obvious deformities. NEUROLOGICAL: Awake and alert. No obvious cranial nerve deficits. Motor grossly within normal limits. Five out of 5 muscle strength in the arms and legs. Normal speech. PSYCHIATRIC: Appropriate mood and affect; insight and judgment normal. Assessment and Plan Assessment and Plan ? BRONCHIAL ASTHMA PLAN O2 NEEDED PRN ALBUTEROL CHECK PFT Krysta Chaparro MD Mar 09, 2017 17:10
[2017-03-09] MEDS: MORPHINE SULFATE 4 MG/ML INJ IV PUSH PRN (21:49)
[2017-03-10] VITALS (11 sets, daily range): BP systolic 121–150; BP diastolic 80–96; PULSE 66–104; RESP 16–20; TEMP 97.2–98.1; O2SAT 91–95
[2017-03-10] MEDS: MORPHINE SULFATE 4 MG/ML INJ IV PUSH PRN (02:48)
[2017-03-10] MEDS: ONDANSETRON HCL 4 MG/2 ML VIAL IV PUSH PRN ×2 (03:11→10:46)
[2017-03-10] MEDS: RESP: ALBUTEROL 2.5 MG/3 ML NEB (PRN) NEB ×2 (03:30→20:36)
[2017-03-10] MEDS: methylPREDNISolone SOD SUCC 40 MG/1 ML VIAL IV PUSH SCH ×3 (05:14→20:18)
[2017-03-10 07:44] LABS: HEMATOCRIT 44.1 % (39.0-51.0); HEMOGLOBIN 14.9 GM/DL (13.0-17.0); MEAN CELL VOLUME 86.8 FL (80.0-100.0); MEAN CORPUSCULAR HEMOGLOBIN 29.2 PG (27.0-34.0); MEAN CORPUSCULAR HGB CONC 33.7 % (32.0-36.0); MEAN PLATELET VOLUME 9.6 FL (7.0-11.0); PLATELET COUNT 227 TH/MM3 (150-450); RED BLOOD COUNT 5.09 MIL/MM3 (4.50-5.90); RED CELL DISTRIBUTION WIDTH 14.5 % (11.6-17.2)
[2017-03-10 08:41] LABS: BICARBONATE 23.5 MEQ/L (21.0-32.0); CALCIUM 8.4 MG/DL (8.5-10.1); CREATININE 1.07 MG/DL (0.60-1.30)
[2017-03-10] MEDS: SODIUM CHLORIDE 0.9% FLUSH 10 ML FLUSH IV FLUSH SCH ×2 (09:00→20:19)
[2017-03-10] MEDS ORDERED: CLOPIDOGREL 75 MG TAB PO SCH (09:00)
[2017-03-10] MEDS: POLYETHYLENE GLYCOL 17 GM PKG PO SCH (09:00)
[2017-03-10] MEDS: METOPROLOL TARTRATE 50 MG TAB PO SCH ×2 (09:56→20:11)
[2017-03-10] MEDS: ASPIRIN 81 MG CHEW TAB CHEW SCH (09:56)
[2017-03-10] MEDS: LISINOPRIL 10 MG TAB PO SCH (09:56)
[2017-03-10] MEDS: MULTIVITAMIN TAB PO SCH (09:56)
[2017-03-10] MEDS: FINASTERIDE 5 MG TAB PO SCH (09:56)
[2017-03-10] MEDS: GABAPENTIN 300 MG CAP PO SCH ×2 (09:57→20:10)
[2017-03-10] MEDS: PANTOPRAZOLE SOD 40 MG DELAYED RELEASE TAB PO SCH (09:57)
[2017-03-10] MEDS: FLUTICASONE 200 MCG/VILANTEROL 25 MCG INHALER INH SCH (09:58)
[2017-03-10] MEDS: PRASUGREL 10 MG TAB PO SCH (10:01)
[2017-03-10] MEDS: SODIUM CHLOR 0.9% 1000 ML INJ 1,000 ML IV SCH ×2 (10:58→20:19)
--- NOTE | 2017-03-10 14:02 | HHI.FPPN ---
Subjective Remarks Pt seen and examined this morning. No acute events overnight. She has been afebrile and vital signs have been stable. Pts present at bedside. Pt reports feeling very sleepy. He denies chest pain, shortness of breath, abdominal pain. Appetite is decreased. His pain from surgery has been well- controlled. He denies any additional issues. (Elder Valdes MD R3) Objective Vitals Vital Signs Date Time Temp Pulse Resp B/P (MAP) Pulse Ox O2 Delivery O2 Flow Rate FiO2 03/10/17 12:00 98.1 78 18 124/80 (95) 94 03/10/17 12:00 104 03/10/17 11:11 93 Nasal Cannula 5.00 03/10/17 08:00 97.8 85 18 148/92 (110) 93 03/10/17 08:00 88 03/10/17 05:49 19 03/10/17 04:11 92 Nasal Cannula 5.00 03/10/17 04:00 92 Nasal Cannula 5.00 Humidified 03/10/17 04:00 88 03/10/17 03:40 97.8 78 20 150/94 (112) 93 03/10/17 03:20 84 19 138/96 (110) 92 03/10/17 00:02 73 03/10/17 00:00 Nasal Cannula 2.00 03/09/17 23:50 97.6 84 18 131/87 (102) 92 03/09/17 22:50 97.8 82 18 127/87 (100) 93 03/09/17 21:45 Nasal Cannula 2.00 03/09/17 19:20 Nasal Cannula 2.00 03/09/17 17:16 93 Nasal Cannula 2.00 03/09/17 17:00 98.2 78 18 114/87 (96) 95 03/09/17 16:41 Nasal Cannula 2.00 03/09/17 16:30 73 16 127/68 (87) 93 Nasal Cannula 3 03/09/17 16:15 71 16 120/72 (88) 94 Nasal Cannula 3 03/09/17 16:00 74 16 145/87 (106) 92 Nasal Cannula 3 03/09/17 15:45 73 16 129/87 (101) 92 Nasal Cannula 3 03/09/17 15:30 78 16 132/90 (104) 92 Nasal Cannula 3 03/09/17 15:15 79 16 141/90 (107) 92 Nasal Cannula 3 03/09/17 15:00 97.7 87 16 133/88 (103) 90 Nasal Cannula 3 I/O 03/09/17 03/09/17 03/09/17 03/10/17 03/10/17 03/10/17 07:00 15:00 23:00 07:00 15:00 23:00 Intake Total 2400 ml 120 ml 100 ml Output Total 700 ml 950 ml 500 ml 150 ml Balance -700 ml 1450 ml -380 ml -50 ml Intake Oral 120 ml 100 ml Other 2400 ml Output Urine Total 700 ml 700 ml 500 ml 150 ml Estimated Blood Loss 250 ml # Bowel Movements 0 (Elder Valdes MD R3) Result Diagram: 03/10/1745 03/10/17544 Objective Remarks GENERAL: wdwn male, lying in bed, talkative, speaking in full sentences SKIN: Warm and dry. No rashes, lesions HEAD: Normocephalic. AT EYES: No scleral icterus. No injection or drainage ENT: OP clear. MMM NC in place NECK: Supple, trachea midline. No lymphadenopathy. CARDIOVASCULAR: Regular rate and rhythm without audible murmur, gallop, or rub RESPIRATORY: Breath sounds equal bilaterally. Poor air movement. No accessory muscle use GASTROINTESTINAL: Abdomen soft, mildly tender to palpation in the right upper quadrant, nondistended. No rebound, guarding. Normal BS MUSCULOSKELETAL: Mild discomfort of left lower extremity. No cyanosis. BACK: Nontender without obvious deformity. No CVA tenderness NEURO: Awake and alert. Normal speech. CN grossly intact. Procedures tPA therapy for thrombolysis of left SFA 03/08-03/09 (Elder Valdes MD R3) A/P Assessment and Plan Patient is a 76-year-old male with a history of CAD, hypertension, GERD and PAD with blood clots that presented to the ED with a one-week history of progressive shortness of breath following 2 episodes of dizziness. Initial ACS rule out negative. Patient was found to have elevated d-dimer on admission and CTA was performed which was negative for pulmonary embolism, but did show incidental finding of 4.3 cm descending thoracic aortic aneurysm. Chest x-ray was also significant for bibasilar subsegmental atelectasis. He was initially admitted for 24-hour observation and further workup, but due to slow improvement in symptoms, he was admitted for management of his shortness of breath. Pulmonary was been consulted to assist with management with plans to perform PFT today. Vascular surgery was consulted for aortic arch aneurysm which only requires close follow-up with imaging for now; however he CTA with runoff was performed that showed occlusion in left SFA that was determined to be a fibrotic clots not amenable to TPA therapy. Patient status post left femoropopliteal bypass femoral endarterectomy popliteal endarterectomy and patch on 03/09 Discharge Planning Pending clinical improvement in shortness of breath and pulmonary recommendations (Elder Valdes MD R3) Attending Attestation Patient seen and examined. Case reviewed and discussed. Agree with plan of care as discussed with me and documented in the resident note. (Heather Snow MD) Problem List: (1) Shortness of breath ICD Codes: R06.02 - Shortness of breath Status: Resolved Plan: Patient presented with a one-week history of progressive shortness of breath on exertion and at rest At baseline is able to ambulate long distances/perform all ADLs with no shortness of breath Not on home oxygen, requiring oxygen via nasal cannula during hospitalization Pulmonology consulted - appreciate recommendations Dr Chaparro plans to perform bedside PFTs Previous workup: Chest x-ray on admission significant for bibasilar subsegmental atelectasis Afebrile on admission, blood cultures pending, lactic acid pending Rapid influenza negative BNP within normal limits Incentive spirometry ordered ACS workup on admission negative Trending troponins and EKGs D-dimer elevated on admission to 2.51, CTA negative for PE but did show 4.3 cm ascending thoracic aortic aneurysm (patient does not recall a history of this) Vascular surgery consultation for assessment/management recommendations Aortic ultrasound ordered to screen for AAA TSH to WNL at 2.56 (2) Superficial femoral artery occlusion ICD Codes: I70.209 - Unspecified atherosclerosis of [place] arteries of extremities, unspecified extremity Plan: Vascular surgery consulted - appreciate recommendations and intervention * CTA with runoff was performed which showed a clot in the left SFA * Patient status post left femoropopliteal bypass femoral endarterectomy popliteal endarterectomy and patch on 03/09 (3) Aorta aneurysm ICD Codes: I71.9 - Aortic aneurysm of unspecified site, without rupture Plan: Incidental finding on CTA of 4.3 cm ascending thoracic aortic aneurysm; history of this unknown to patient on admission Aortic ultrasound was ordered to screen for AAA and was negative Vascular surgery consulted - appreciate recommendations * Thoracic aneurysm aneurysm will be managed medically and with close follow-up for imaging (4) HTN (hypertension) ICD Codes: I10 - Essential (primary) hypertension Plan: History of hypertension Continue lisinopril 10 mg daily, metoprolol tartrate 50 mg PO BID With finding of thoracic aortic aneurysm, goal systolic blood pressure of less than 120 Vasotec 1.25 mg IV when necessary for systolic blood pressure greater than 160, diastolic blood pressure greater than 90 (5) CAD (coronary artery disease) ICD Codes: I25.10 - Atherosclerotic heart disease of [place] coronary artery without angina pectoris Plan: Patient with known CAD, status post coronary stents placed in 2007 Lipid profile pending ACS/further workup as described above Continue home atorvastatin 80 mg at night, ASA 81 mg daily (6) PAD (peripheral artery disease) ICD Codes: I73.9 - Peripheral vascular disease, unspecified Plan: Continuing home Effient 10 mg daily Further management by vascular surgery (7) BPH (benign prostatic hyperplasia) ICD Codes: N40.0 - Benign prostatic hyperplasia without lower urinary tract symptoms Plan: Continue home finasteride 5 mg by mouth daily (8) FEN Plan: Heart healthy diet Oral fluids only Replete electrolytes as needed Zofran as needed for nausea Tylenol as needed for fever Protonix for GI prophylaxis Holding further pharmacologic DVT prophylaxis due to recent vascular surgery SCDs for now (Elder Valdes MD R3) Elder Valdes MD R3 Mar 10, 2017 14:02 Heather Snow MD Mar 13, 2017 09:12
--- NOTE | 2017-03-10 15:14 | PD.CAR.PN ---
CVT Progress Note Subjective/Hospital Course: I reviewed the patient's CTA Patient has good flow on the right and vessels are fairly clean but on the left side patient has sudden occlusion of the SFA at the level of the groin and this extends all the way down through the adductor canal to the popliteal artery In face of the MT's of the vessels which appeared to be fairly clean I believe this is a clot Discussed this at length with Dr. Morgan Nelson Suggest patient undergo TPA lysis and if that is not successful he can always have surgical thromboembolectomy Will refer for tPA lysis tomorrow 03/08/17 Patient was scheduled today to undergo TPA lysis of the left leg clot Once the catheter was inserted its noted that this clot is to take into fibrous to remove and at this point the only option is femoropopliteal bypass Patient does have ischemia to the left leg but no limb threatening changes and reconstituted the blood flow at the popliteal level I'll give an option to have the femoropopliteal bypasses done here or at home up broken bow. Either option is acceptable as long as its timely 03/10/17 Patient is status post left femoropopliteal bypass femoral endarterectomy popliteal endarterectomy and patch Patient has bounding femoral-popliteal dissolves pedis and posterior tibial pulses Foot is warm graft is widely patent Unfortunately Rodriguez catheter was removed yesterday and patient urinated on his incision throughout the night. I found him in bed with the urine covered wet sheets this a.m. Patient appears to be slightly under hydrated considering that IV was not running through the night Patient did not receive dinner because he was nauseous but didn't receive breakfast either so I ordered breakfast Out of bed today with assistance Change dressings Transferred to surgical floor Objective: Vital Signs Date Time Temp Pulse Resp B/P (MAP) Pulse Ox O2 Delivery O2 Flow Rate FiO2 03/10/17 14:15 Nasal Cannula 5.00 03/10/17 12:00 98.1 78 18 124/80 (95) 94 03/10/17 12:00 104 03/10/17 11:11 93 Nasal Cannula 5.00 03/10/17 08:00 97.8 85 18 148/92 (110) 93 03/10/17 08:00 88 03/10/17 05:49 19 03/10/17 04:11 92 Nasal Cannula 5.00 03/10/17 04:00 92 Nasal Cannula 5.00 Humidified 03/10/17 04:00 88 03/10/17 03:40 97.8 78 20 150/94 (112) 93 03/10/17 03:20 84 19 138/96 (110) 92 03/10/17 00:02 73 03/10/17 00:00 Nasal Cannula 2.00 03/09/17 23:50 97.6 84 18 131/87 (102) 92 03/09/17 22:50 97.8 82 18 127/87 (100) 93 03/09/17 21:45 Nasal Cannula 2.00 03/09/17 19:20 Nasal Cannula 2.00 03/09/17 17:16 93 Nasal Cannula 2.00 03/09/17 17:00 98.2 78 18 114/87 (96) 95 03/09/17 16:41 Nasal Cannula 2.00 03/09/17 16:30 73 16 127/68 (87) 93 Nasal Cannula 3 03/09/17 16:15 71 16 120/72 (88) 94 Nasal Cannula 3 03/09/17 16:00 74 16 145/87 (106) 92 Nasal Cannula 3 03/09/17 15:45 73 16 129/87 (101) 92 Nasal Cannula 3 03/09/17 15:30 78 16 132/90 (104) 92 Nasal Cannula 3 03/09/17 15:15 79 16 141/90 (107) 92 Nasal Cannula 3 03/09/17 15:00 97.7 87 16 133/88 (103) 90 Nasal Cannula 3 Labs: Laboratory Tests Test 03/10/17 05:45 White Blood Count 11.0 TH/MM3 (4.0-11.0) Red Blood Count 5.09 MIL/MM3 (4.50-5.90) Hemoglobin 14.9 GM/DL (13.0-17.0) Hematocrit 44.1 % (39.0-51.0) Mean Corpuscular Volume 86.8 FL (80.0-100.0) Mean Corpuscular Hemoglobin 29.2 PG (27.0-34.0) Mean Corpuscular Hemoglobin Concent 33.7 % (32.0-36.0) Red Cell Distribution Width 14.5 % (11.6-17.2) Platelet Count 227 TH/MM3 (150-450) Mean Platelet Volume 9.6 FL (7.0-11.0) Blood Urea Nitrogen 27 MG/DL (7-18) Creatinine 1.07 MG/DL (0.60-1.30) Random Glucose 163 MG/DL (74-106) Calcium Level 8.4 MG/DL (8.5-10.1) Sodium Level 139 MEQ/L (136-145) Potassium Level 4.1 MEQ/L (3.5-5.1) Chloride Level 106 MEQ/L (98-107) Carbon Dioxide Level 23.5 MEQ/L (21.0-32.0) Anion Gap 10 MEQ/L (5-15) Estimat Glomerular Filtration Rate 67 ML/MIN (>89) Result Diagram: 03/10/17 0545 03/10/17 0545 Calin Hernandez MD Mar 10, 2017 15:14
[2017-03-10] MEDS: MONTELUKAST SODIUM 10 MG TAB PO SCH (20:10)
[2017-03-10] MEDS: ATORVASTATIN 80 MG TAB PO SCH (20:11)
[2017-03-10] MEDS: ACETAMINOPHEN 325 MG TAB PO PRN (20:15)
[2017-03-11] VITALS (15 sets, daily range): BP systolic 81–150; BP diastolic 44–91; PULSE 62–117; RESP 13–24; TEMP 97.4–98.6; O2SAT 83–99
[2017-03-11] MEDS: ACETAMINOPHEN 325 MG TAB PO PRN (00:55)
[2017-03-11] MEDS: SODIUM CHLOR 0.9% 1000 ML INJ 1,000 ML IV SCH (06:13)
[2017-03-11] MEDS: methylPREDNISolone SOD SUCC 40 MG/1 ML VIAL IV PUSH SCH ×3 (06:14→20:27)
[2017-03-11 06:52] LABS: AUTOMATED NEUTROPHIL # 9.7 TH/MM3 (1.8-7.7); BASOPHIL % 0.1 % (0.0-2.0); HEMATOCRIT 40.7 % (39.0-51.0); HEMOGLOBIN 13.5 GM/DL (13.0-17.0); LYMPH % 13.5 % (9.0-44.0); LYMPHOCYTE # 1.7 TH/MM3 (1.0-4.8); MEAN CELL VOLUME 87.6 FL (80.0-100.0); MEAN CORPUSCULAR HGB CONC 33.1 % (32.0-36.0); MONO % 7.9 % (0.0-8.0); NEUT % 78.5 % (16.0-70.0); PLATELET COUNT 220 TH/MM3 (150-450); RED BLOOD COUNT 4.65 MIL/MM3 (4.50-5.90); RED CELL DISTRIBUTION WIDTH 14.3 % (11.6-17.2); WHITE BLOOD COUNT 12.3 TH/MM3 (4.0-11.0)
[2017-03-11 07:42] LABS: BICARBONATE 26.8 MEQ/L (21.0-32.0); CALCIUM 8.3 MG/DL (8.5-10.1); CREATININE 0.99 MG/DL (0.60-1.30)
[2017-03-11] MEDS: RESP: ALBUTEROL 2.5 MG/3 ML NEB (PRN) NEB ×2 (08:29→23:13)
[2017-03-11] MEDS: ASPIRIN 81 MG CHEW TAB CHEW SCH ×2 (09:00→16:05)
[2017-03-11] MEDS: SODIUM CHLORIDE 0.9% FLUSH 10 ML FLUSH IV FLUSH SCH ×2 (09:00→20:26)
[2017-03-11] MEDS: LISINOPRIL 10 MG TAB PO SCH ×2 (09:00→16:04)
[2017-03-11] MEDS: POLYETHYLENE GLYCOL 17 GM PKG PO SCH (09:00)
[2017-03-11] MEDS: PRASUGREL 10 MG TAB PO SCH ×2 (09:00→16:03)
[2017-03-11] MEDS: METOPROLOL TARTRATE 50 MG TAB PO SCH ×2 (09:00→20:26)
[2017-03-11] MEDS: FLUTICASONE 200 MCG/VILANTEROL 25 MCG INHALER INH SCH (09:00)
[2017-03-11] MEDS: FINASTERIDE 5 MG TAB PO SCH (09:00)
[2017-03-11] MEDS: PANTOPRAZOLE SOD 40 MG DELAYED RELEASE TAB PO SCH ×2 (09:00→16:04)
[2017-03-11] MEDS: MULTIVITAMIN TAB PO SCH (09:00)
[2017-03-11] MEDS: GABAPENTIN 300 MG CAP PO SCH ×3 (09:00→20:27)
--- NOTE | 2017-03-11 09:21 | RADRPT ---
EXAM DATE/TIME: 03/11/2017 09:08 [facility] COMPARISON: CHEST SINGLE AP, March 05, 2017, 17:45. INDICATIONS : Shortness of breath. MEDICAL HISTORY : Hypertension. Myocardial infarction. SURGICAL HISTORY : Cholecystectomy. Coronary artery stent. ENCOUNTER: Subsequent ACUITY: 1 week PAIN SCORE: 0/10 LOCATION: Bilateral chest FINDINGS: Single AP portable semiupright view of the chest demonstrates mild hypoinflation of the lungs. No hira dence of air space consolidation. Heart size appears normal with moderate tortuosity of the thoracic aorta. Pulmonary vasculature is mildly prominent which can be secondary to portable technique. CONCLUSION: No evidence of acute cardiopulmonary disease. Danni Vieira MD on March 11, 2017 at 9:18 Board Certified Radiologist. This report was verified electronically.
[2017-03-11] MEDS ORDERED: FUROSEMIDE 40 MG/4 ML VIAL ONE (09:50)
[2017-03-11] MEDS ORDERED: FUROSEMIDE 100 MG/10 ML VIAL IV PUSH ONE ×2 (10:30→18:45)
--- NOTE | 2017-03-11 10:30 | HHI.FPPN ---
Subjective Remarks Resident visit page from patient's nurse stating that he's O2 saturation dropped to the 80s and was difficult to maintain in the low 90s on 100% nonrebreather. In addition, his heart rate was elevated to the 110's and his blood pressure dropped to 81/44. Consequently a Halicat was called and the patient was transferred to the cardiovascular ICU where he was placed on BiPAP initially on 100% FiO2 and then reduce to 60% FiO2. Outside Sales Engineer was consulted who determined that he is most likely fluid overload with mobilization of third space versus pulmonary embolism. He was administered 80 mg IV Lasix. (Eko,Yuliya Mehta MD R2) Objective Vitals Vital Signs Date Time Temp Pulse Resp B/P (MAP) Pulse Ox O2 Delivery O2 Flow Rate FiO2 03/11/17 10:02 Bi-Pap 100 03/11/17 09:33 117 03/11/17 09:33 98.6 117 24 81/44 (56) 83 03/11/17 08:32 92 Non-Rebreather 15.00 03/11/17 08:00 98.5 95 22 136/91 (106) 03/11/17 05:53 20 03/11/17 04:00 97.7 70 16 150/82 (104) 91 03/11/17 00:00 97.9 62 16 131/82 (98) 93 03/10/17 20:36 95 Nasal Cannula 5.00 03/10/17 20:00 67 03/10/17 20:00 Nasal Cannula 5.00 03/10/17 20:00 97.9 70 16 125/81 (96) 91 03/10/17 16:00 97.2 66 17 121/80 (94) 95 03/10/17 14:15 Nasal Cannula 5.00 03/10/17 12:00 98.1 78 18 124/80 (95) 94 03/10/17 12:00 104 03/10/17 11:11 93 Nasal Cannula 5.00 I/O 03/10/17 03/10/17 03/10/17 03/11/17 03/11/17 03/11/17 07:00 15:00 23:00 07:00 15:00 23:00 Intake Total 100 ml 1047 ml 240 ml Output Total 150 ml 450 ml 200 ml 410 ml Balance -50 ml -450 ml 847 ml -170 ml Intake Oral 100 ml 240 ml 240 ml IV Total 807 ml Output Urine Total 150 ml 450 ml 200 ml 410 ml # Voids 0 2 # Bowel Movements 0 0 (EkoYuliya MD R2) Result Diagram: 03/11/1762403/11/17624 Objective Remarks GENERAL: wdwn male, lying in bed, on BiPAP SKIN: Warm and dry. No rashes, lesions HEAD: Normocephalic. AT EYES: No scleral icterus. No injection or drainage ENT: OP clear. MMM NC in place NECK: Supple, trachea midline. No lymphadenopathy. CARDIOVASCULAR: Regular rate and rhythm without audible murmur, gallop, or rub RESPIRATORY: Breath sounds equal bilaterally. Poor air movement. No accessory muscle use GASTROINTESTINAL: Abdomen soft, mildly tender to palpation in the right upper quadrant, nondistended. No rebound, guarding. Normal BS MUSCULOSKELETAL: No cyanosis. 1+ pedal edema BACK: Nontender without obvious deformity. No CVA tenderness NEURO: Awake and alert. Normal speech. CN grossly intact. Procedures tPA therapy for thrombolysis of left SFA 03/08-03/09 (EkoYuliya MD R2) A/P Assessment and Plan Patient is a 76-year-old male with a history of CAD, hypertension, GERD and PAD with blood clots that presented to the ED with a one-week history of progressive shortness of breath following 2 episodes of dizziness. Initial ACS rule out negative. Patient was found to have elevated d-dimer on admission and CTA was performed which was negative for pulmonary embolism, but did show incidental finding of 4.3 cm descending thoracic aortic aneurysm. Chest x-ray was also significant for bibasilar subsegmental atelectasis. He was initially admitted for 24-hour observation and further workup, but due to slow improvement in symptoms, he was admitted for management of his shortness of breath. Pulmonary was been consulted to assist with management with plans to perform PFT today. Vascular surgery was consulted for aortic arch aneurysm which only requires close follow-up with imaging for now; however he CTA with runoff was performed that showed occlusion in left SFA that was determined to be a fibrotic clots not amenable to TPA therapy. Patient POD2 status post left femoropopliteal bypass femoral endarterectomy popliteal endarterectomy and patch on 03/[address] Snow Discharge Planning Pending clinical improvement in shortness of breath and pulmonary recommendations (Eko,Yuliya Mehta MD R2) Attending Attestation Patient seen and examined. Case reviewed and discussed. Agree with plan of care as discussed with me and documented in the resident note. Spoke with CCM, Dr. Hopkins, suspecting fluid overload etiology to patient's resp insufficiency/failure Patient seen after transfer to CVICU. Has diuresed >1300 cc Now breathing better Family at the bedside No chest pain. On Bipap. (Heather Snow MD) Problem List: (1) Respiratory distress ICD Codes: R06.03 - Acute respiratory distress Plan: -Acute hypoxia with O2 saturation down to 83% this a.m. -Transferred to the ICU, on BiPAP at 60% FiO2, doing much better -Working diagnosis is fluid overload status post revascularization surgery versus PE -Lasix 80 mg IV administered -Repeat 2-D echo with Doppler ordered by vascular surgery -Outside Sales Engineer on board - appreciate assistance with management -Continue Lovenox 40 mg subcutaneous every 24 hours (2) Shortness of breath ICD Codes: R06.02 - Shortness of breath Status: Resolved Plan: Patient presented with a one-week history of progressive shortness of breath on exertion and at rest At baseline is able to ambulate long distances/perform all ADLs with no shortness of breath Not on home oxygen, requiring oxygen via nasal cannula during hospitalization Pulmonology consulted - appreciate recommendations Dr Chaparro plans to perform bedside PFT Continue Gilbert Previous workup: Chest x-ray on admission significant for bibasilar subsegmental atelectasis Afebrile on admission, blood cultures pending, lactic acid pending Rapid influenza negative BNP within normal limits Incentive spirometry ordered ACS workup on admission negative Trending troponins and EKGs D-dimer elevated on admission to 2.51, CTA negative for PE but did show 4.3 cm ascending thoracic aortic aneurysm (patient does not recall a history of this) Vascular surgery consultation for assessment/management recommendations Aortic ultrasound ordered to screen for AAA TSH to WNL at 2.56 (3) Superficial femoral artery occlusion ICD Codes: I70.209 - Unspecified atherosclerosis of [place] arteries of extremities, unspecified extremity Plan: Vascular surgery consulted - appreciate recommendations and intervention * CTA with runoff was performed which showed a clot in the left SFA * Patient status post left femoropopliteal bypass femoral endarterectomy popliteal endarterectomy and patch on 03/09 (4) Aorta aneurysm ICD Codes: I71.9 - Aortic aneurysm of unspecified site, without rupture Plan: Incidental finding on CTA of 4.3 cm ascending thoracic aortic aneurysm; history of this unknown to patient on admission Aortic ultrasound was ordered to screen for AAA and was negative Vascular surgery consulted - appreciate recommendations * Thoracic aneurysm aneurysm will be managed medically and with close follow-up for imaging (5) HTN (hypertension) ICD Codes: I10 - Essential (primary) hypertension Plan: History of hypertension Continue lisinopril 10 mg daily, metoprolol tartrate 50 mg PO BID With finding of thoracic aortic aneurysm, goal systolic blood pressure of less than 120 Vasotec 1.25 mg IV when necessary for systolic blood pressure greater than 160, diastolic blood pressure greater than 90 (6) CAD (coronary artery disease) ICD Codes: I25.10 - Atherosclerotic heart disease of [place] coronary artery without angina pectoris Plan: Patient with known CAD, status post coronary stents placed in 2007 Lipid profile normal ACS/further workup as described above Continue home atorvastatin 80 mg at night, ASA 81 mg daily (7) PAD (peripheral artery disease) ICD Codes: I73.9 - Peripheral vascular disease, unspecified Plan: Continuing home Effient 10 mg daily Further management by vascular surgery (8) BPH (benign prostatic hyperplasia) ICD Codes: N40.0 - Benign prostatic hyperplasia without lower urinary tract symptoms Plan: Continue home finasteride 5 mg by mouth daily (9) FEN Plan: Heart healthy diet Oral fluids only Replete electrolytes as needed Zofran as needed for nausea Tylenol as needed for fever Protonix for GI prophylaxis Lovenox 40 mg subcutaneous every 24 hours for DVT prophylaxis (Yuliya Nash MD R2) Yuliya Nash MD R2 Mar 11, 2017 10:29 Heather Snow MD Mar 13, 2017 09:11
[2017-03-11] MEDS ORDERED: HEPARIN-D5W 25,000 U/250 ML 250 ML IV PRN (10:45)
[2017-03-11 11:13] LABS: LACTIC ACID SEPSIS PROTOCOL 3.4 mmol/L (0.4-2.0)
[2017-03-11 11:33] LABS: TROPONIN I 0.05 NG/ML (0.02-0.05)
[2017-03-11 11:43] LABS: INTERNATIONAL NORMALIZED RATIO 1.1 RATIO; PROTHROMBIN TIME - PATIENT 10.9 SEC (9.8-11.6)
[2017-03-11 13:42] LABS: HEMATOCRIT 41.4 % (39.0-51.0); HEMOGLOBIN 13.7 GM/DL (13.0-17.0); MEAN CELL VOLUME 87.5 FL (80.0-100.0); MEAN CORPUSCULAR HGB CONC 33.2 % (32.0-36.0); PLATELET COUNT 210 TH/MM3 (150-450); RED BLOOD COUNT 4.73 MIL/MM3 (4.50-5.90); RED CELL DISTRIBUTION WIDTH 14.3 % (11.6-17.2); WHITE BLOOD COUNT 12.6 TH/MM3 (4.0-11.0)
--- NOTE | 2017-03-11 15:26 | PD.CAR.PN ---
CVT Progress Note Subjective/Hospital Course: I reviewed the patient's CTA Patient has good flow on the right and vessels are fairly clean but on the left side patient has sudden occlusion of the SFA at the level of the groin and this extends all the way down through the adductor canal to the popliteal artery In face of the MN's of the vessels which appeared to be fairly clean I believe this is a clot Discussed this at length with Dr. Morgan Nelson Suggest patient undergo TPA lysis and if that is not successful he can always have surgical thromboembolectomy Will refer for tPA lysis tomorrow 03/08/17 Patient was scheduled today to undergo TPA lysis of the left leg clot Once the catheter was inserted its noted that this clot is to take into fibrous to remove and at this point the only option is femoropopliteal bypass Patient does have ischemia to the left leg but no limb threatening changes and reconstituted the blood flow at the popliteal level I'll give an option to have the femoropopliteal bypasses done here or at [place]. Either option is acceptable as long as its timely 03/10/17 Patient is status post left femoropopliteal bypass femoral endarterectomy popliteal endarterectomy and patch Patient has bounding femoral-popliteal dissolves pedis and posterior tibial pulses Foot is warm graft is widely patent Unfortunately Rodriguez catheter was removed yesterday and patient urinated on his incision throughout the night. I found him in bed with the urine covered wet sheets this a.m. Patient appears to be slightly under hydrated considering that IV was not running through the night Patient did not receive dinner because he was nauseous but didn't receive breakfast either so I ordered breakfast Out of bed today with assistance Change dressings Transferred to surgical floor 03/11/17 Incision clean and dry. Excellent distal pulses Strong dopplerable and even palpable dorsalis pedis and dopplerable posterior tibial Strong signal dopplerable popliteal and the graft Foot nice and warm well perfused with normal capillary refill This morning patient apparently developed respiratory distress with hypotension. Patient was emergently transferred to CVICU Now patient is good bilateral breath sounds and is on 60% FiO2 BiPAP mask This certainly looks most like a fluid overload and mobilization of the third space, rather than pulmonary embolism As far as the d-dimer goes, positive d-dimer which is usually vascular higher than 200 ng/mL may indicate pulmonary embolism but this also seen in patients with a cardiac failure, syncope, trauma etc. On the other hand low d-dimer reliably excludes pulmonary embolism. In this particular patient d-dimer a 16 ng/mL which is clearly negative value as far as pulmonary embolism is concerned and I will see any value in further studying this line. Agree with diuresis and pulmonary support When all said and done patient will likely need to rehabilitation and family would like to keep him at [place] Objective: Vital Signs Date Time Temp Pulse Resp B/P (MAP) Pulse Ox O2 Delivery O2 Flow Rate FiO2 03/11/17 15:10 98.3 72 13 131/89 (103) 95 03/11/17 15:10 96 Bi-Pap 60 03/11/17 15:09 72 03/11/17 13:10 94 60 03/11/17 11:14 98.6 107 19 114/85 (95) 95 03/11/17 11:14 96 Bi-Pap 100 03/11/17 10:12 92 100 03/11/17 10:02 Bi-Pap 100 03/11/17 09:33 117 03/11/17 09:33 98.6 117 24 81/44 (56) 83 03/11/17 08:32 92 Non-Rebreather 15.00 03/11/17 08:00 98.5 95 22 136/91 (106) 03/11/17 05:53 20 03/11/17 04:00 97.7 70 16 150/82 (104) 91 03/11/17 00:00 97.9 62 16 131/82 (98) 93 03/10/17 20:36 95 Nasal Cannula 5.00 03/10/17 20:00 67 03/10/17 20:00 Nasal Cannula 5.00 03/10/17 20:00 97.9 70 16 125/81 (96) 91 03/10/17 16:00 97.2 66 17 121/80 (94) 95 Labs: Laboratory Tests Test 03/11/17 06:25 03/11/17 09:03 03/11/17 10:36 03/11/17 13:06 White Blood Count 12.3 TH/MM3 (4.0-11.0) 12.6 TH/MM3 (4.0-11.0) Red Blood Count 4.65 MIL/MM3 (4.50-5.90) 4.73 MIL/MM3 (4.50-5.90) Hemoglobin 13.5 GM/DL (13.0-17.0) 13.7 GM/DL (13.0-17.0) Hematocrit 40.7 % (39.0-51.0) 41.4 % (39.0-51.0) Mean Corpuscular Volume 87.6 FL (80.0-100.0) 87.5 FL (80.0-100.0) Mean Corpuscular Hemoglobin 29.0 PG (27.0-34.0) 29.0 PG (27.0-34.0) Mean Corpuscular Hemoglobin Concent 33.1 % (32.0-36.0) 33.2 % (32.0-36.0) Red Cell Distribution Width 14.3 % (11.6-17.2) 14.3 % (11.6-17.2) Platelet Count 220 TH/MM3 (150-450) 210 TH/MM3 (150-450) Mean Platelet Volume 9.0 FL (7.0-11.0) 9.0 FL (7.0-11.0) Neutrophils (%) (Auto) 78.5 % (16.0-70.0) Lymphocytes (%) (Auto) 13.5 % (9.0-44.0) Monocytes (%) (Auto) 7.9 % (0.0-8.0) Eosinophils (%) (Auto) 0.0 % (0.0-4.0) Basophils (%) (Auto) 0.1 % (0.0-2.0) Neutrophils # (Auto) 9.7 TH/MM3 (1.8-7.7) Lymphocytes # (Auto) 1.7 TH/MM3 (1.0-4.8) Monocytes # (Auto) 1.0 TH/MM3 (0-0.9) Eosinophils # (Auto) 0.0 TH/MM3 (0-0.4) Basophils # (Auto) 0.0 TH/MM3 (0-0.2) CBC Comment DIFF FINAL Differential Comment Blood Urea Nitrogen 24 MG/DL (7-18) Creatinine 0.99 MG/DL (0.60-1.30) Random Glucose 100 MG/DL (74-106) Calcium Level 8.3 MG/DL (8.5-10.1) Sodium Level 141 MEQ/L (136-145) Potassium Level 4.2 MEQ/L (3.5-5.1) Chloride Level 106 MEQ/L (98-107) Carbon Dioxide Level 26.8 MEQ/L (21.0-32.0) Anion Gap 8 MEQ/L (5-15) Estimat Glomerular Filtration Rate 73 ML/MIN (>89) Blood Gas Puncture Site RT RADIAL Blood Gas Patient Temperature 98.6 Blood Gas HCO3 22 mmol/L (22-26) Blood Gas Base Excess -1.7 mmol/L (-2-2) Blood Gas Oxygen Saturation 88 % (90-100) Arterial Blood pH 7.44 (7.380-7.420) Arterial Blood Partial Pressure CO2 33 mmHg (38-42) Arterial Blood Partial Pressure O2 59 mmHg (61-120) Arterial Blood Oxygen Content 17.2 Vol % (12.0-20.0) Arterial Blood Carboxyhemoglobin 1.0 % (0-4) Arterial Blood Methemoglobin 0.9 % (0-2) Blood Gas Hemoglobin 13.9 G/DL (12.0-16.0) Oxygen Delivery Device Non-Rebreathing Mask Blood Gas Liter Flow 15 L/M Prothrombin Time 10.9 SEC (9.8-11.6) Prothromb Time International Ratio 1.1 RATIO Activated Partial Thromboplast Time 25.7 SEC (24.3-30.1) D-Dimer Quantitative (PE/DVT) 16.85 MG/L FEU (0.00-0.50) Lactic Acid Level 3.4 mmol/L (0.4-2.0) Total Creatine Kinase 80 U/L (39-308) Troponin I 0.05 NG/ML (0.02-0.05) B-Type Natriuretic Peptide 39 PG/ML (0-100) Test 03/11/17 14:07 Lactic Acid Level 2.8 mmol/L (0.4-2.0) Result Diagram: 03/11/17 1306 03/11/17 0625 Calin Hernandez MD Mar 11, 2017 15:26
[2017-03-11] MEDS: ENOXAPARIN SODIUM 40 MG/0.4 ML SYRINGE SQ SCH (16:03)
[2017-03-11] MEDS: RESP: ALBUTEROL 2.5 MG/IPRATROPIUM 0.5 MG NEB (SCH) INH ×2 (16:12→19:48)
--- NOTE | 2017-03-11 18:41 | PD.CONS ---
[facility] Service Critical Care Medicine Consult Requested By Family medicine Reason for Consult acute hypoxia Primary Care Physician Non-Staff History of Present Illness I saw and evaluated the patient on arrival to the CVICU at approximately 09: 45am. delayed note entry. This is a 76-year-old male who originally presented on 03/05 with complaints of subacute shortness of breath. He is being worked up for subacute dyspnea. His hospital course has been complicated by left common femoral artery thrombosis requiring femoropopliteal bypass on 03/09. This morning, the patient had acute worsening of his dyspnea which appears to be new and unique compared to his subacute dyspnea. He was also noted to be hypoxic and quickly increasing oxygen requirement from his baseline 3 L a minute during his hospital stay up to 5 L/m and then nonrebreather, then 100% FiO2 BiPAP. I was called and asked to evaluate the patient. I came immediately and the patient on my evaluation was quite tachypneic in distress with SPO2 88% on 100% FiO2 BiPAP. The patient did endorse shortness of breath. He denied chest pain. He denied any other symptoms. He denied cough. Denied sputum production. Denied fevers or chills. Does state this is a relatively acute onset shortness of breath. The remainder the review of systems and history is difficult to obtain due to the patient's respiratory distress. Review of Systems ROS Limitations: Clinical Condition Constitutional: DENIES: Fever, Chills Respiratory: COMPLAINS OF: Shortness of breath, DENIES: Cough, Wheezing, Hemoptysis, Sputum production Cardiovascular: COMPLAINS OF: Lower Extremity Edema, DENIES: Chest pain, Syncope, Dyspnea on Exertion Gastrointestinal: DENIES: Abdominal pain, Diarrhea, Nausea, Vomiting Past Family Social History Allergies: Coded Allergies: chocolate flavor (Verified Allergy, Unknown, 03/05/17) milk (Verified Allergy, Unknown, 03/05/17) orange juice (Verified Allergy, Unknown, 03/05/17) peanut (Verified Allergy, Unknown, 03/05/17) Uncoded Allergies: granulated sugar (Allergy, Unknown, 03/05/17) Past Medical History CAD - stents in 2007 HTN BPH GERD PAD - told he has arterial blockage in L leg - considering bypass Erythrocytosis - sees oncologist for occasional phlebotomy roughly every several months. Last seen in January 2017 Episode of Transient global amnesia 3 years ago Had pneumonia vaccine, flu shot this year Past Surgical History Coronary artery stent in 2007 Cholecystectomy 2011 Herniated disc repair 2006 Reported Medications Multiple Vitamin 1 Tab 1 Tab PO DAILY Fish Oil ([place]-3 Fatty Acids) 340 Mg-1,000 Mg Cap Cranberry Urinary Comfort (Vitamins C & E) 1 Cap 2 Cap PO DAILY Miralax Powder (Polyethylene Glycol 3350 Powder) 17 Gm Powd 17 Gm PO DAILY Mix and dissolve one measuring cap-ful (17 grams) in water or juice. Ventolin Hfa 18 GM Inh (Albuterol Sulfate) 90 Mcg/Act Aer 2 Puff INH Q4-6H PRN Breo Ellipta Inh (Fluticasone/Vilanterol) 200-25 Mcg/Act Inh 1 Puff INH DAILY Use daily at the same time. Finasteride 5 Mg Tab 5 Mg PO DAILY Do not crush. Lisinopril 10 Mg Tab 10 Mg PO DAILY Atorvastatin (Atorvastatin Calcium) 80 Mg Tab 80 Mg PO HS Gabapentin 300 Mg Cap 300 Mg PO BID Aspirin Low Dose (Aspirin) 81 Mg Chew 81 Mg CHEW DAILY Metoprolol Tartrate 100 Mg Tab 150 Mg PO DAILY Effient (Prasugrel) 10 Mg Tab 10 Mg PO DAILY Esomeprazole DR 40 Mg Capdr 40 Mg PO DAILY Active Ordered Medications See MAR Family History Mother - HTN Father - at young age from possible stroke Sister of cancer - colon, renal Other sister living Social History From [facility], living in [place] for 2 months Lives with No pets Drinks 1-2 beers with dinner, none this week No tobacco use since age of 18 No illicit drug use Physical Exam Vital Signs Vital Signs Date Time Temp Pulse Resp B/P (MAP) Pulse Ox O2 Delivery O2 Flow Rate FiO2 03/11/17 16:09 95 Non-Rebreather 03/11/17 16:03 95 Non-Rebreather 15.00 03/11/17 15:10 98.3 72 13 131/89 (103) 95 03/11/17 15:10 96 Bi-Pap 60 03/11/17 15:09 72 03/11/17 13:10 94 60 03/11/17 11:14 98.6 107 19 114/85 (95) 95 03/11/17 11:14 96 Bi-Pap 100 03/11/17 10:12 92 100 03/11/17 10:02 Bi-Pap 100 03/11/17 09:33 117 03/11/17 09:33 98.6 117 24 81/44 (56) 83 03/11/17 08:32 92 Non-Rebreather 15.00 03/11/17 08:00 98.5 95 22 136/91 (106) 03/11/17 05:53 20 03/11/17 04:00 97.7 70 16 150/82 (104) 91 03/11/17 00:00 97.9 62 16 131/82 (98) 93 03/10/17 20:36 95 Nasal Cannula 5.00 03/10/17 20:00 67 03/10/17 20:00 Nasal Cannula 5.00 03/10/17 20:00 97.9 70 16 125/81 (96) 91 Physical Exam On my evaluation, the patient is in severe respiratory distress. He is tachypneic using accessory muscles to breathe. He is on BiPAP. His SPO2 is 80% . FiO2 100%. He does have 2+ pitting edema of lower extremities. His extremity is are cool and poorly perfused. He has a very large neck circumference and is obese with a large falk, so accurate assessment of JVD is unobtainable. He is not tachycardic. His blood pressure is borderline low at 95 systolic. Laboratory Laboratory Tests Test 03/11/17 06:25 03/11/17 09:03 03/11/17 10:36 03/11/17 13:06 White Blood Count 12.3 12.6 Red Blood Count 4.65 4.73 Hemoglobin 13.5 13.7 Hematocrit 40.7 41.4 Mean Corpuscular Volume 87.6 87.5 Mean Corpuscular Hemoglobin 29.0 29.0 Mean Corpuscular Hemoglobin Concent 33.1 33.2 Red Cell Distribution Width 14.3 14.3 Platelet Count 220 210 Mean Platelet Volume 9.0 9.0 Neutrophils (%) (Auto) 78.5 Lymphocytes (%) (Auto) 13.5 Monocytes (%) (Auto) 7.9 Eosinophils (%) (Auto) 0.0 Basophils (%) (Auto) 0.1 Neutrophils # (Auto) 9.7 Lymphocytes # (Auto) 1.7 Monocytes # (Auto) 1.0 Eosinophils # (Auto) 0.0 Basophils # (Auto) 0.0 CBC Comment DIFF FINAL Differential Comment Blood Urea Nitrogen 24 Creatinine 0.99 Random Glucose 100 Calcium Level 8.3 Sodium Level 141 Potassium Level 4.2 Chloride Level 106 Carbon Dioxide Level 26.8 Anion Gap 8 Estimat Glomerular Filtration Rate 73 Blood Gas Puncture Site RT RADIAL Blood Gas Patient Temperature 98.6 Blood Gas HCO3 22 Blood Gas Base Excess -1.7 Blood Gas Oxygen Saturation 88 Arterial Blood pH 7.44 Arterial Blood Partial Pressure CO2 33 Arterial Blood Partial Pressure O2 59 Arterial Blood Oxygen Content 17.2 Arterial Blood Carboxyhemoglobin 1.0 Arterial Blood Methemoglobin 0.9 Blood Gas Hemoglobin 13.9 Oxygen Delivery Device Non-Rebreathing Mask Blood Gas Liter Flow 15 Prothrombin Time 10.9 Prothromb Time International Ratio 1.1 Activated Partial Thromboplast Time 25.7 D-Dimer Quantitative (PE/DVT) 16.85 Lactic Acid Level 3.4 Total Creatine Kinase 80 Troponin I 0.05 B-Type Natriuretic Peptide 39 Test 03/11/17 14:07 03/11/17 17:59 Lactic Acid Level 2.8 Date/Time Source Procedure Growth Status 03/06/17 00:53 Blood Peripheral Aerobic Blood Culture - Final NO GROWTH IN 5 DAYS Complete 03/06/17 00:53 Blood Peripheral Anaerobic Blood Culture - Final NO GROWTH IN 5 DAYS Complete 03/05/17 17:47 Nasal Aspirate Influenza Types A,B Antigen (ASTER) - Final NEGATIVE FOR FLU A AND B ANTIGEN.... Complete Result Diagram: 03/11/17 1306 03/11/17 0625 Imaging Last Impressions Chest X-Ray 03/11/17 0000 Signed Impressions: Service Date/Time: Saturday, March 11, 2017 09:08 - CONCLUSION: No evidence of acute cardiopulmonary disease. Danni Vieira MD Lower Extremity Angiography 03/08/17 0000 Signed Impressions: Service Date/Time: Wednesday, March 08, 2017 13:02 - CONCLUSION: 1. Distal left above-knee popliteal artery occlusion with plaque and chronic thrombus extending to the distal SFA with mature genicular collaterals. Given the apparent chronicity of the findings, planned TPA thrombolysis was not performed. Donovan Baez MD Liver Ultrasound 03/07/17 0000 Signed Impressions: Service Date/Time: Tuesday, March 07, 2017 18:01 - CONCLUSION: 1. Multiple large right renal cysts. No hydronephrosis a very ductal dilatation. Cholecystectomy. Mild fatty liver. Adrián Caicedo MD Aorta w/Runoff CTA 03/06/17 0000 Signed Impressions: Service Date/Time: Tuesday, March 07, 2017 11:30 - CONCLUSION: 1. There is abrupt occlusion of the left superficial femoral at the adductor hiatus and extending down to the trifurcation. This appears possibly embolic as there is very little diffuse vascular disease. 2. Adequate inflow a variety. 3. Enlargement of the prostate. 4. Multiple renal cysts bilaterally. 5. Enlargement of the prostate. 6. Small bilateral inguinal hernias. Judah Nelson MD Aorta Ultrasound 03/06/17 0000 Signed Impressions: Service Date/Time: Monday, March 06, 2017 07:48 - CONCLUSION: 1. No abdominal aortic aneurysm. Size measurements are given above. Judah Nelson MD CT Angiography 03/05/17 192 Signed Impressions: Service Date/Time: Sunday, March 05, 2017 19:57 - CONCLUSION: 1. No evidence for pulmonary embolism. 2. Bibasilar densities likely atelectasis. 3. Coronary artery calcifications. 4. Mild thoracic aortic aneurysm measures 4.3 cm. Bradley Simmons MD Carotid Artery Ultrasound 03/05/17 0000 Signed Impressions: Service Date/Time: Sunday, March 05, 2017 22:16 - CONCLUSION: 1. No hemodynamically significant stenosis in either carotid artery. 2. Nonvisualization right vertebral artery. Bradley Simmons MD Assessment and Plan Assessment and Plan Assessment: This is a 76-year-old male with acute on subacute shortness of breath now postop day 3 status post left femoropopliteal bypass. Clinically this appears to be flash pulmonary edema with volume overload is the most likely cause of his acute dyspnea. The patient was recently worked up for PE with a pulmonary angiogram 7 days ago and has been on some element of anticoagulation up until 4 days ago when he had his femoropopliteal bypass. Patient does have a history of DVT and I agree with placing the patient on heparin drip until we can fully work out his dyspnea, but I do think that acute PE is very low on the differential given his clinical course. Acute TN would also present this way, but the patient denies chest pain, the patient specifically states this does not feel like his last heart attack. We will trend troponins, obtain BNP, emergently give Lasix 80 mg IV 1, place Rodriguez catheter, wean FiO2 for BiPAP. If he continues to decline we will pursue with intubation. Patient remains critically ill. Active problems: Acute hypoxic respiratory failure plan: continue bipap wean fio2 for goal spo2 > 90% trend cardiac enzymes bnp lasix 80mg iv x 1. ekg heparin drip lactate admit to ICU This plan was discussed with Dr. Snow and Dr. Davis who agree with the plan. Critical care time: 44 minutes, exclusive of separately billable procedures. Shane Hopkins MD Mar 11, 2017 18:41
[2017-03-11 18:42] LABS: BICARBONATE 27.2 MEQ/L (21.0-32.0); CREATININE 1.09 MG/DL (0.60-1.30)
[2017-03-11 18:46] LABS: TROPONIN I 0.05 NG/ML (0.02-0.05)
[2017-03-11] MEDS: MONTELUKAST SODIUM 10 MG TAB PO SCH (20:26)
[2017-03-11] MEDS: ATORVASTATIN 80 MG TAB PO SCH (20:27)
[2017-03-11] MEDS: oxyCODONE/ACETAMINOPHEN 5 MG/325 MG TAB PO PRN (20:27)
[2017-03-11] MEDS ORDERED: POTASSIUM CHLORIDE 20 MEQ CONTROLLED RELEASE TAB PO ONE (21:00)
[2017-03-11] MEDS ORDERED: POTASSIUM CHLOR 20 MEQ PREMIX 100 ML IV ONE (22:00)
[2017-03-12] VITALS (13 sets, daily range): BP systolic 91–105; BP diastolic 33–75; PULSE 58–90; RESP 14–20; TEMP 97.4–98; O2SAT 88–98
[2017-03-12 04:24] LABS: HEMATOCRIT 41.2 % (39.0-51.0); HEMOGLOBIN 13.4 GM/DL (13.0-17.0); MEAN CELL VOLUME 86.5 FL (80.0-100.0); MEAN CORPUSCULAR HEMOGLOBIN 28.2 PG (27.0-34.0); MEAN CORPUSCULAR HGB CONC 32.6 % (32.0-36.0); PLATELET COUNT 215 TH/MM3 (150-450); RED BLOOD COUNT 4.76 MIL/MM3 (4.50-5.90); RED CELL DISTRIBUTION WIDTH 14.4 % (11.6-17.2); WHITE BLOOD COUNT 11.6 TH/MM3 (4.0-11.0)
[2017-03-12 04:47] LABS: BICARBONATE 26.1 MEQ/L (21.0-32.0); CALCIUM 8.2 MG/DL (8.5-10.1); CREATININE 1.2 MG/DL (0.60-1.30); MAGNESIUM 2.5 MG/DL (1.5-2.5); TROPONIN I 0.03 NG/ML (0.02-0.05)
[2017-03-12] MEDS: methylPREDNISolone SOD SUCC 40 MG/1 ML VIAL IV PUSH SCH ×3 (06:09→22:07)
[2017-03-12] MEDS: RESP: ALBUTEROL 2.5 MG/IPRATROPIUM 0.5 MG NEB (SCH) INH ×4 (07:05→20:45)
[2017-03-12] MEDS: GABAPENTIN 300 MG CAP PO SCH ×2 (08:51→22:06)
[2017-03-12] MEDS: MULTIVITAMIN TAB PO SCH (08:51)
[2017-03-12] MEDS: LISINOPRIL 10 MG TAB PO SCH (08:51)
[2017-03-12] MEDS: FINASTERIDE 5 MG TAB PO SCH (08:51)
[2017-03-12] MEDS: POLYETHYLENE GLYCOL 17 GM PKG PO SCH (08:51)
[2017-03-12] MEDS: PRASUGREL 10 MG TAB PO SCH (08:51)
[2017-03-12] MEDS: SODIUM CHLORIDE 0.9% FLUSH 10 ML FLUSH IV FLUSH SCH ×2 (08:52→22:07)
[2017-03-12] MEDS: PANTOPRAZOLE SOD 40 MG DELAYED RELEASE TAB PO SCH (08:52)
[2017-03-12] MEDS: FLUTICASONE 200 MCG/VILANTEROL 25 MCG INHALER INH SCH (08:52)
[2017-03-12] MEDS: METOPROLOL TARTRATE 50 MG TAB PO SCH ×2 (08:52→22:07)
[2017-03-12] MEDS: ASPIRIN 81 MG CHEW TAB CHEW SCH (08:52)
--- NOTE | 2017-03-12 12:13 | PD.CAR.PN ---
CVT Progress Note Subjective/Hospital Course: I reviewed the patient's CTA Patient has good flow on the right and vessels are fairly clean but on the left side patient has sudden occlusion of the SFA at the level of the groin and this extends all the way down through the adductor canal to the popliteal artery In face of the SD's of the vessels which appeared to be fairly clean I believe this is a clot Discussed this at length with Dr. Morgan Nelson Suggest patient undergo TPA lysis and if that is not successful he can always have surgical thromboembolectomy Will refer for tPA lysis tomorrow 03/08/17 Patient was scheduled today to undergo TPA lysis of the left leg clot Once the catheter was inserted its noted that this clot is to take into fibrous to remove and at this point the only option is femoropopliteal bypass Patient does have ischemia to the left leg but no limb threatening changes and reconstituted the blood flow at the popliteal level I'll give an option to have the femoropopliteal bypasses done here or at home up [place]. Either option is acceptable as long as its timely 03/10/17 Patient is status post left femoropopliteal bypass femoral endarterectomy popliteal endarterectomy and patch Patient has bounding femoral-popliteal dissolves pedis and posterior tibial pulses Foot is warm graft is widely patent Unfortunately Rodriguez catheter was removed yesterday and patient urinated on his incision throughout the night. I found him in bed with the urine covered wet sheets this a.m. Patient appears to be slightly under hydrated considering that IV was not running through the night Patient did not receive dinner because he was nauseous but didn't receive breakfast either so I ordered breakfast Out of bed today with assistance Change dressings Transferred to surgical floor 03/11/17 Incision clean and dry. Excellent distal pulses Strong dopplerable and even palpable dorsalis pedis and dopplerable posterior tibial Strong signal dopplerable popliteal and the graft Foot nice and warm well perfused with normal capillary refill This morning patient apparently developed respiratory distress with hypotension. Patient was emergently transferred to CVICU Now patient is good bilateral breath sounds and is on 60% FiO2 BiPAP mask This certainly looks most like a fluid overload and mobilization of the third space, rather than pulmonary embolism As far as the d-dimer goes, positive d-dimer which is usually vascular higher than 200 ng/mL may indicate pulmonary embolism but this also seen in patients with a cardiac failure, syncope, trauma etc. On the other hand low d-dimer reliably excludes pulmonary embolism. In this particular patient d-dimer a 16 ng/mL which is clearly negative value as far as pulmonary embolism is concerned and I don't see any value in further studying this line. Agree with diuresis and pulmonary support When all said and done patient will likely need to rehabilitation and family would like to keep him at [place] 03/12/17 Doing much better. Foot warm. Excellent distal pulses and graft flow is brisk. Incisions clean dry. Bilat BS, resp distress resolved. Great work by Dr Perez Objective: Vital Signs Date Time Temp Pulse Resp B/P (MAP) Pulse Ox O2 Delivery O2 Flow Rate FiO2 03/12/17 11:04 71 03/12/17 11:04 90 Nasal Cannula 6.00 03/12/17 11:03 97.7 74 19 104/73 (83) 90 03/12/17 10:18 94 Nasal Cannula 6.00 03/12/17 07:24 62 03/12/17 07:24 97.4 62 17 104/75 (85) 98 03/12/17 07:23 98 Bi-Pap 50 03/12/17 07:06 98 50 03/12/17 04:01 97 60 03/12/17 03:00 98 Bi-Pap 60 03/12/17 03:00 97.9 58 14 96/64 (75) 98 03/12/17 03:00 61 03/11/17 23:15 94 60 03/11/17 23:00 73 03/11/17 23:00 95 Bi-Pap 60 03/11/17 23:00 98.1 73 16 95/64 (74) 95 03/11/17 22:31 18 03/11/17 19:48 95 Non-Rebreather 15.00 100 03/11/17 19:30 99 Non-Rebreather 100 03/11/17 19:30 97.4 85 16 106/74 (85) 99 03/11/17 19:30 83 03/11/17 16:09 95 Non-Rebreather 03/11/17 16:03 95 Non-Rebreather 15.00 03/11/17 15:10 98.3 72 13 131/89 (103) 95 03/11/17 15:10 96 Bi-Pap 60 03/11/17 15:09 72 1/27/18 13:10 94 60 Labs: Laboratory Tests Test 03/12/17 03:59 White Blood Count 11.6 TH/MM3 (4.0-11.0) Red Blood Count 4.76 MIL/MM3 (4.50-5.90) Hemoglobin 13.4 GM/DL (13.0-17.0) Hematocrit 41.2 % (39.0-51.0) Mean Corpuscular Volume 86.5 FL (80.0-100.0) Mean Corpuscular Hemoglobin 28.2 PG (27.0-34.0) Mean Corpuscular Hemoglobin Concent 32.6 % (32.0-36.0) Red Cell Distribution Width 14.4 % (11.6-17.2) Platelet Count 215 TH/MM3 (150-450) Mean Platelet Volume 9.0 FL (7.0-11.0) Blood Urea Nitrogen 34 MG/DL (7-18) Creatinine 1.20 MG/DL (0.60-1.30) Random Glucose 135 MG/DL (74-106) Calcium Level 8.2 MG/DL (8.5-10.1) Magnesium Level 2.5 MG/DL (1.5-2.5) Sodium Level 141 MEQ/L (136-145) Potassium Level 4.3 MEQ/L (3.5-5.1) Chloride Level 107 MEQ/L (98-107) Carbon Dioxide Level 26.1 MEQ/L (21.0-32.0) Anion Gap 8 MEQ/L (5-15) Estimat Glomerular Filtration Rate 59 ML/MIN (>89) Troponin I 0.03 NG/ML (0.02-0.05) Result Diagram: 03/12/17 0359 03/12/17 0359 Calin Hernandez MD Mar 12, 2017 12:13
--- NOTE | 2017-03-12 13:43 | HHI.FPPN ---
Subjective Remarks Mr Gallagher had no acute events overnight. His respiratory distress resolved overnight following Lasix 80mg IV x1 for fluid overload. This morning he was taken off the BiPAP at 50% FiO2 to partial rebreather mask during interview, and then to 6L via NC later in the morning. He has no complaint of CP or SOB, no N/V/D, or DVT pain, but feels tired and wants to sleep. If he continues to improve we will consider moving to the floor later today. (Fermin Padron MD R1) Objective Vitals Vital Signs Date Time Temp Pulse Resp B/P (MAP) Pulse Ox O2 Delivery O2 Flow Rate FiO2 03/12/17 11:04 71 03/12/17 11:04 90 Nasal Cannula 6.00 03/12/17 11:03 97.7 74 19 104/73 (83) 90 03/12/17 10:18 94 Nasal Cannula 6.00 03/12/17 07:24 62 03/12/17 07:24 97.4 62 17 104/75 (85) 98 03/12/17 07:23 98 Bi-Pap 50 03/12/17 07:06 98 50 03/12/17 04:01 97 60 03/12/17 03:00 98 Bi-Pap 60 03/12/17 03:00 97.9 58 14 96/64 (75) 98 03/12/17 03:00 61 03/11/17 23:15 94 60 03/11/17 23:00 73 03/11/17 23:00 95 Bi-Pap 60 03/11/17 23:00 98.1 73 16 95/64 (74) 95 03/11/17 22:31 18 03/11/17 19:48 95 Non-Rebreather 15.00 100 03/11/17 19:30 99 Non-Rebreather 100 03/11/17 19:30 97.4 85 16 106/74 (85) 99 03/11/17 19:30 83 03/11/17 16:09 95 Non-Rebreather 03/11/17 16:03 95 Non-Rebreather 15.00 03/11/17 15:10 98.3 72 13 131/89 (103) 95 03/11/17 15:10 96 Bi-Pap 60 03/11/17 15:09 72 I/O 03/11/17 03/11/17 03/11/17 03/12/17 03/12/17 03/12/17 07:00 15:00 23:00 07:00 15:00 23:00 Intake Total 240 ml 200 ml 150 ml 150 ml Output Total 410 ml 1550 ml 1320 ml Balance -170 ml 200 ml -1400 ml -1170 ml Intake Oral 240 ml 150 ml 100 ml IV Total 200 ml 50 ml Output Urine Total 410 ml 1550 ml 1320 ml # Voids 2 # Bowel Movements 0 0 (Fermin Padron MD R1) Result Diagram: 03/12/17 0359 03/12/17 0359 Imaging Last 48 hours Impressions Chest X-Ray 03/11/17 0000 Signed Impressions: Service Date/Time: Saturday, March 11, 2017 09:08 - CONCLUSION: No evidence of acute cardiopulmonary disease. Danni Vieira MD Objective Remarks GENERAL: wdwn obese male lying in bed on partial rebreather mask in NAD SKIN: Warm and dry. No rashes, lesions HEAD: Normocephalic. AT EYES: No scleral icterus. No injection or drainage ENT: OP clear. MMM NECK: Supple, trachea midline. No lymphadenopathy. CARDIOVASCULAR: Regular rate and rhythm without audible murmur, gallop, or rub RESPIRATORY: Breath sounds equal bilaterally with scattered wheezes. Poor air movement. No accessory muscle use GASTROINTESTINAL: Abdomen soft, nontender, nondistended. No rebound, guarding. Normal BS MUSCULOSKELETAL: No cyanosis. Mild non-pitting pedal edema resolving. BACK: deferred due to being in CVICU. NEURO: Awake and alert. Normal speech. CN grossly intact. Procedures tPA therapy for thrombolysis of left SFA 03/08-03/09 Medications and IVs Current Medications Medications (Trade) Dose Ordered Sig/Lizbeth Route Start Time Stop Time Status Last Admin (NS Flush) 2 ml UNSCH PRN IV FLUSH 03/05/17 22:00 (NS Flush) 2 ml BID IV FLUSH 03/06/17 09:00 03/12/17 08:52 (Aspirin Chew) 81 mg DAILY CHEW 03/06/17 09:00 03/12/17 08:52 (Lipitor) 80 mg HS PO 03/05/17 22:15 03/11/17 20:27 (Proscar) 5 mg DAILY PO 03/06/17 09:00 03/12/17 08:51 (Breo Ellipta 200-25 Inh) 1 puff DAILY INH 03/06/17 09:00 03/10/17 09:58 (Neurontin) 300 mg BID PO 03/05/17 22:15 03/12/17 08:51 (Prinivil) 10 mg DAILY PO 03/06/17 09:00 03/12/17 08:51 (Miralax) 17 gm DAILY PO 03/06/17 09:00 03/12/17 08:51 (Effient) 10 mg DAILY PO 03/06/17 09:00 03/12/17 08:51 (Protonix) 40 mg DAILY PO 03/06/17 09:00 03/12/17 08:52 (Theragran) 1 tab DAILY PO 03/06/17 09:00 03/12/17 08:51 (Albuterol Neb) 2.5 mg Q4HR WHILE AWAKE NEB PRN NEB 03/05/17 22:15 03/11/17 23:13 (Zofran Inj) 4 mg Q6HR PRN IV PUSH 03/05/17 22:15 03/10/17 10:46 (Tylenol) 325 mg Q4H PRN PO 03/05/17 22:15 03/11/17 00:55 (Lopressor) 50 mg Q12HR PO 03/06/17 10:00 03/12/17 08:52 (Singulair) 10 mg HS PO 03/06/17 21:00 03/11/17 20:26 (SoluMEDROL INJ) 40 mg Q8HR IV PUSH 03/07/17 14:00 03/12/17 06:09 (Morphine Inj) 4 mg Q3H PRN IV PUSH 03/09/17 16:30 03/10/17 02:48 (Percocet 5-325 Mg) 1 tab Q4H PRN PO 03/09/17 16:30 03/11/17 20:27 (Duoneb Neb) 1 ampule QID NEB INH 03/11/17 16:00 03/12/17 11:06 (Lovenox Inj) 40 mg Q24H SQ 03/11/17 16:00 03/11/17 16:03 (Fermin Padron MD R1) Urinary Catheter: Yes Rodriguez insert reason: ICU Pt Getting Diuretics (Fermin Padron MD R1) A/P Assessment and Plan Patient is a 76-year-old male with a history of CAD, hypertension, GERD and PAD with blood clots that presented to the ED with a one-week history of progressive shortness of breath following 2 episodes of dizziness. Initial ACS rule out negative. Patient was found to have elevated d-dimer on admission and CTA was performed which was negative for pulmonary embolism, but did show incidental finding of 4.3 cm descending thoracic aortic aneurysm. Chest x-ray was also significant for bibasilar subsegmental atelectasis. He was initially admitted for 24-hour observation and further workup, but due to slow improvement in symptoms, he was admitted for management of his shortness of breath. Pulmonary was been consulted; will perform PFTs when more stable. Vascular surgery was consulted for aortic arch aneurysm which only requires close follow-up with imaging for now; however his CTA with runoff was performed that showed occlusion in left SFA that was determined to be a fibrotic clots not amenable to TPA therapy. Patient POD2 status post left femoropopliteal bypass femoral endarterectomy popliteal endarterectomy and patch on 03/09. On pt became acutely hypoxic with respiratory distress and was transferred to the CVICU on BiPAP. Pt given Lasix 80mg x1 for fluid overload to resolve respiratory distress. 03/12: NAEON. Taken off BiPAP onto partial rebreather, then to 6L NC. Respiratory distress resolved by loan supervisor. Pulmonary consulted and awaiting PFTs; however, likely will be deferred until pt stabilizes more. Seen and discussed with Dr. Snow Discharge Planning Pending clinical improvement in shortness of breath and pulmonary recommendations (Fermin Padron MD R1) Attending Attestation Patient seen and examined with Dr. Padron. Case reviewed and discussed Agree with plan of care as discussed with me and documented in the resident note. Breathing status improving. Continues to diurese. Will monitor. Appreciate CCM. (Heather Snow MD) Problem List: (1) Respiratory distress ICD Codes: R06.03 - Acute respiratory distress Plan: Resolved. Likely 2/2 fluid overload and not PE. Pt now on 6L NC and being weaned as per ICU protocol -Acute hypoxia with O2 saturation down to 83% 03/11 in AM -S/P Lasix 80 mg IV administered -Repeat 2-D echo with Doppler ordered by vascular surgery -Insulation Worker Apprentice on board - appreciate assistance with management -Continue Lovenox 40 mg subcutaneous every 24 hours (2) Shortness of breath ICD Codes: R06.02 - Shortness of breath Status: Resolved Plan: Patient presented with a one-week history of progressive shortness of breath on exertion and at rest At baseline is able to ambulate long distances/perform all ADLs with no shortness of breath Not on home oxygen, requiring oxygen via nasal cannula during hospitalization Pulmonology consulted - appreciate recommendations Dr Chaparro plans to perform bedside PFT Continue Gilbert Previous workup: Chest x-ray on admission significant for bibasilar subsegmental atelectasis Afebrile on admission, blood cultures pending, lactic acid pending Rapid influenza negative BNP within normal limits Incentive spirometry ordered ACS workup on admission negative Trending troponins and EKGs D-dimer elevated on admission to 2.51, CTA negative for PE but did show 4.3 cm ascending thoracic aortic aneurysm (patient does not recall a history of this) Vascular surgery consultation for assessment/management recommendations Aortic ultrasound negative for AAA TSH to WNL at 2.56 (3) Superficial femoral artery occlusion ICD Codes: I70.209 - Unspecified atherosclerosis of jamul arteries of extremities, unspecified extremity Plan: Vascular surgery consulted - appreciate recommendations and intervention * CTA with runoff was performed which showed a clot in the left SFA * Patient status post left femoropopliteal bypass femoral endarterectomy popliteal endarterectomy and patch on 03/09 (4) Aorta aneurysm ICD Codes: I71.9 - Aortic aneurysm of unspecified site, without rupture Plan: Incidental finding on CTA of 4.3 cm ascending thoracic aortic aneurysm; history of this unknown to patient on admission Aortic ultrasound was ordered to screen for AAA and was negative Vascular surgery consulted - appreciate recommendations * Thoracic aneurysm aneurysm will be managed medically and with close follow-up for imaging (5) HTN (hypertension) ICD Codes: I10 - Essential (primary) hypertension Plan: History of hypertension - normotensive w/BP stable at 104/73 today Continue lisinopril 10 mg daily, metoprolol tartrate 50 mg PO BID With finding of thoracic aortic aneurysm, goal systolic blood pressure of less than 120 Vasotec 1.25 mg IV when necessary for systolic blood pressure greater than 160, diastolic blood pressure greater than 90 (6) CAD (coronary artery disease) ICD Codes: I25.10 - Atherosclerotic heart disease of jamul coronary artery without angina pectoris Plan: Patient with known CAD, status post coronary stents placed in 2007 Lipid profile normal ACS/further workup as described above Continue home atorvastatin 80 mg at night, ASA 81 mg daily (7) PAD (peripheral artery disease) ICD Codes: I73.9 - Peripheral vascular disease, unspecified Plan: Continuing home Effient 10 mg daily Further management by vascular surgery (8) BPH (benign prostatic hyperplasia) ICD Codes: N40.0 - Benign prostatic hyperplasia without lower urinary tract symptoms Plan: Continue home finasteride 5 mg by mouth daily (9) FEN Plan: Heart healthy diet Oral fluids only Replete electrolytes as needed Zofran as needed for nausea Tylenol as needed for fever Protonix for GI prophylaxis Lovenox 40 mg subcutaneous every 24 hours for DVT prophylaxis (Fermin Padron MD R1) Fermin Padron MD R1 Mar 12, 2017 13:43 Heather Snow MD Mar 13, 2017 08:34
--- NOTE | 2017-03-12 14:20 | ECHRPT ---
Indication: RESP FAILURE VS CARDIAC CONCLUSIONS Technically difficult study. In limited views, the overall ejection fraction appears normal with an estimated ejection fraction o f 55-60%. Doppler parameters are consistent with impaired left ventricular relaxtion (grade 1 diastolic dysfun ction). Trace aortic valve regurgitation. There is trace tricuspid valve regurgitation. BP: / HR: Rhythm: MEASUREMENTS (Male / Female) Normal Values Technical Quality:Technically difficult study 2D ECHO LV Diastolic Diameter PLAX 4.2 cm 4.2 - 5.9 / 3.9 - 5.3 cm LV Systolic Diameter PLAX 3.2 cm IVS Diastolic Thickness 1.1 cm 0.6 - 1.0 / 0.6 - 0.9 cm LVPW Diastolic Thickness 0.9 cm 0.6 - 1.0 / 0.6 - 0.9 cm LV Relative Wall Thickness 0.5 RV Internal Dim ED PLAX 2.3 cm LA Systolic Diameter LX 3.8 cm 3.0 - 4.0 / 2.7 - 3.8 cm M-MODE Aortic Root Diameter MM 3.7 cm AV Cusp Separation MM 2.2 cm DOPPLER Mitral E Point Velocity 34.1 cm/s Mitral A Point Velocity 67.6 cm/s Mitral E to A Ratio 0.5 TR Peak Velocity 192.5 cm/s TR Peak Gradient 14.8 mmHg FINDINGS LEFT VENTRICLE Normal left ventricular size. Wall thickness is normal. In limited views, the overall ejection fraction appears normal with an estimated ejection fraction o f 55-60% There was limited left ventricular wall motion assessment due to poor endocardial visualization. Doppler parameters are consistent with impaired left ventricular relaxtion (grade 1 diastolic dysfun ction). RIGHT VENTRICLE Normal right ventricular size and systolic function. LEFT ATRIUM The left atrium was not well visualized. RIGHT ATRIUM The right atrium is not well visualized. ATRIAL SEPTUM The interatrial septum not well visualized. AORTA The aortic root and proximal ascending aorta are not well visualized. MITRAL VALVE Grossly normal mitral valve. No mitral valve stenosis or regurgitation noted. AORTIC VALVE The aortic valve is not well visualized. Trace aortic valve regurgitation. No aortic valve stenosis. TRICUSPID VALVE Grossly normal tricuspid valve. There is trace tricuspid valve regurgitation. No tricuspid valve stenosis. PULMONARY VALVE The pulmonary valve is not well visualized. VESSELS The inferior vena cava was not well visualized. Alejandro Carr DO (Electronically Signed) Final Date:12 March 2017 14:18
[2017-03-12] MEDS: ENOXAPARIN SODIUM 40 MG/0.4 ML SYRINGE SQ SCH (16:00)
--- NOTE | 2017-03-12 18:40 | HHI.CCPN ---
Subjective Remarks/Hospital Course Hospital Course: This is a 76-year-old male who originally presented on 03/05 with complaints of subacute shortness of breath. He is being worked up for subacute dyspnea. His hospital course has been complicated by left common femoral artery thrombosis requiring femoropopliteal bypass on 03/09. This morning, the patient had acute worsening of his dyspnea which appears to be new and unique compared to his subacute dyspnea. He was also noted to be hypoxic and quickly increasing oxygen requirement from his baseline 3 L a minute during his hospital stay up to 5 L/m and then nonrebreather, then 100% FiO2 BiPAP. I was called and asked to evaluate the patient. I came immediately and the patient on my evaluation was quite tachypneic in distress with SPO2 88% on 100% FiO2 BiPAP. The patient did endorse shortness of breath. He denied chest pain. He denied any other symptoms. He denied cough. Denied sputum production. Denied fevers or chills. Does state this is a relatively acute onset shortness of breath. The remainder the review of systems and history is difficult to obtain due to the patient's respiratory distress. Subjective: 03/12: subjectively improved. does complain of dyspnea, but this is his subacute dyspnea. good diuresis overnight. Objective Vital Signs Date Time Temp Pulse Resp B/P (MAP) Pulse Ox O2 Delivery O2 Flow Rate FiO2 03/12/17 15:04 80 03/12/17 15:04 88 Nasal Cannula 6.00 03/12/17 15:03 97.5 20 105/33 (57) 03/12/17 07:23 50 Intake and Output 03/12/17 03/12/17 03/13/17 08:00 16:00 00:00 Intake Total 150 ml 800 ml Output Total 1320 ml 405 ml Balance -1170 ml 395 ml Result Diagram: 03/12/17 0359 03/12/17 0359 Imaging Last Impressions Chest X-Ray 03/11/17 0000 Signed Impressions: Service Date/Time: Saturday, March 11, 2017 09:08 - CONCLUSION: No evidence of acute cardiopulmonary disease. Danni Vieira MD Lower Extremity Angiography 03/08/17 0000 Signed Impressions: Service Date/Time: Wednesday, March 08, 2017 13:02 - CONCLUSION: 1. Distal left above-knee popliteal artery occlusion with plaque and chronic thrombus extending to the distal SFA with mature genicular collaterals. Given the apparent chronicity of the findings, planned TPA thrombolysis was not performed. Donovan Baez MD Liver Ultrasound 03/07/17 0000 Signed Impressions: Service Date/Time: Tuesday, March 07, 2017 18:01 - CONCLUSION: 1. Multiple large right renal cysts. No hydronephrosis a very ductal dilatation. Cholecystectomy. Mild fatty liver. Adrián Caicedo MD Aorta w/Runoff CTA 03/06/17 0000 Signed Impressions: Service Date/Time: Tuesday, March 07, 2017 11:30 - CONCLUSION: 1. There is abrupt occlusion of the left superficial femoral at the adductor hiatus and extending down to the trifurcation. This appears possibly embolic as there is very little diffuse vascular disease. 2. Adequate inflow a variety. 3. Enlargement of the prostate. 4. Multiple renal cysts bilaterally. 5. Enlargement of the prostate. 6. Small bilateral inguinal hernias. Judah Nelson MD Aorta Ultrasound 03/06/17 0000 Signed Impressions: Service Date/Time: Monday, March 06, 2017 07:48 - CONCLUSION: 1. No abdominal aortic aneurysm. Size measurements are given above. Judah Nelson MD CT Angiography 03/05/17 1920 Signed Impressions: Service Date/Time: Sunday, March 05, 2017 19:57 - CONCLUSION: 1. No evidence for pulmonary embolism. 2. Bibasilar densities likely atelectasis. 3. Coronary artery calcifications. 4. Mild thoracic aortic aneurysm measures 4.3 cm. Bradley Simmons MD Carotid Artery Ultrasound 03/05/17 0000 Signed Impressions: Service Date/Time: Sunday, March 05, 2017 22:16 - CONCLUSION: 1. No hemodynamically significant stenosis in either carotid artery. 2. Nonvisualization right vertebral artery. Bradley Simmons MD Objective Remarks GENERAL: Obese male, lying in bed, nasal cannula. No acute distress HEENT: Normocephalic. Atraumatic. Pupils equal, round, reactive, conjugate. Mucous membranes are moist NECK: Trachea is midline. There is no JVD. CHEST: Unlabored. Equal chest rise. Nasal cannula oxygen. CARDIOVASCULAR: Normal rate, regular rhythm ABDOMEN: Soft, nontender, nondistended. No guarding. MUSCULOSKELETAL: Pulses 2+. 1+ peripheral edema. Left femoropopliteal bypass incision clean dry and intact NEUROLOGICAL: RASS 0. CAM -. Follows commands A/P Assessment and Plan Assessment: This is a 76-year-old male with acute on subacute shortness of breath now postop day 4 status post left femoropopliteal bypass. Course is complicated by what clinically appeared to be flash pulmonary edema now improved after aggressive diuresis and BiPAP. Clinically improving. We'll likely be able to transfer out of ICU in the morning. Active problems: Acute hypoxic respiratory failure - resolving. Subacute dyspnea/hypoxemia plan: wean nc o2 as tolerated if no other causes of dyspnea are found, would recommend thorough cardiac evaluation including possible left and right heart catheterization: may have significant component of WHO Class II pulmonary hypertension from diastolic dysfunction. lasix 80mg iv x 1. Dispo: can transfer out of ICU. Critical care medicine will sign off. Shane Hopkins MD Mar 12, 2017 18:40
[2017-03-12] MEDS ORDERED: FUROSEMIDE 100 MG/10 ML VIAL IV PUSH ONE (18:45)
[2017-03-12] MEDS: ATORVASTATIN 80 MG TAB PO SCH (22:06)
[2017-03-12] MEDS: MONTELUKAST SODIUM 10 MG TAB PO SCH (22:06)
[2017-03-13] VITALS (20 sets, daily range): BP systolic 91–118; BP diastolic 66–80; PULSE 60–92; RESP 14–18; TEMP 97.9–98.2; O2SAT 91–95
[2017-03-13] MEDS: RESP: ALBUTEROL 2.5 MG/3 ML NEB (PRN) NEB (00:37)
[2017-03-13 04:34] LABS: AUTOMATED NEUTROPHIL # 11.1 TH/MM3 (1.8-7.7); BASOPHIL % 0.1 % (0.0-2.0); HEMATOCRIT 39.7 % (39.0-51.0); HEMOGLOBIN 13.2 GM/DL (13.0-17.0); LYMPH % 5.2 % (9.0-44.0); LYMPHOCYTE # 0.6 TH/MM3 (1.0-4.8); MEAN CELL VOLUME 86.1 FL (80.0-100.0); MEAN CORPUSCULAR HEMOGLOBIN 28.6 PG (27.0-34.0); MEAN CORPUSCULAR HGB CONC 33.2 % (32.0-36.0); MEAN PLATELET VOLUME 9.1 FL (7.0-11.0); MONO % 4.1 % (0.0-8.0); MONOCYTE # 0.5 TH/MM3 (0-0.9); NEUT % 90.6 % (16.0-70.0); PLATELET COUNT 219 TH/MM3 (150-450); RED BLOOD COUNT 4.61 MIL/MM3 (4.50-5.90); RED CELL DISTRIBUTION WIDTH 14.3 % (11.6-17.2); WHITE BLOOD COUNT 12.3 TH/MM3 (4.0-11.0)
[2017-03-13 04:52] LABS: BICARBONATE 27.8 MEQ/L (21.0-32.0); CALCIUM 8.5 MG/DL (8.5-10.1); CREATININE 1.19 MG/DL (0.60-1.30)
[2017-03-13] MEDS: methylPREDNISolone SOD SUCC 40 MG/1 ML VIAL IV PUSH SCH ×3 (05:34→21:27)
--- NOTE | 2017-03-13 08:36 | RADRPT ---
EXAM DATE/TIME: 03/13/2017 08:03 [facility] COMPARISON: CHEST SINGLE AP, March 11, 2017, 9:08. INDICATIONS : Shortness of breath. MEDICAL HISTORY : Hypertension. Myocardial infarction. SURGICAL HISTORY : Cholecystectomy. Coronary artery stent. ENCOUNTER: Subsequent ACUITY: 1 week PAIN SCORE: 0/10 LOCATION: Bilateral chest FINDINGS: No new focal pleural or parenchymal opacities. Cardiomediastinal contours are stable. Bony thorax is intact. CONCLUSION: 1. No acute abnormality or significant interval change. Donovan Baez MD on March 13, 2017 at 8:33 Board Certified Radiologist. This report was verified electronically.
--- NOTE | 2017-03-13 08:44 | MP ---
cc: MADDISON WICK MD DATE OF SURGERY 03/09/2017 PREOPERATIVE DIAGNOSIS Ischemia of the left leg, occlusion of superficial femoral artery and proximal popliteal artery. POSTOPERATIVE DIAGNOSIS Ischemia of the left leg, occlusion of superficial femoral artery and proximal popliteal artery. OPERATIVE PROCEDURE Left femoral popliteal bypass with PTFE graft. Popliteal endarterectomy and common femoral endarterectomy / external iliac endarterectomy. SURGEON Dr. Wick. ANESTHESIA General. ESTIMATED BLOOD LOSS 200 cc DETAILS OF PROCEDURE The patient prepped and draped in the usual fashion. The left groin incision made and deepened down to the level of the neurovascular bundle and then the common femoral and deep femoral and superficial femoral arteries were isolated and placed in vessel loops. Popliteal space is now entered from median incision and popliteal artery is isolated, carefully dissected with right angle from the view and vessel loops placed on it. The proximal popliteal artery is clearly occluded and this is obvious on the CTA while the distal close to the trifurcation is patent. Weitlander retractors are placed. The patient is given some times use of heparin and then Carol-Wideonna tunneler is used to bring the PTFE graft from proximal to distal. I choose an 8 mm ringed graft Impra model with a slight taper distally. Distal anastomosis is first attended. The popliteal artery is opened longitudinally with Samson scissors. It is noted that there is a large amount of fibrotic material in the vessel which I expected and now this is endarterectomized using a Garner dissector. A large atherosclerotic plaque with some grayish appearing occlusive tissue is removed and now there is excellent backbleeding. The vessel is irrigated with heparinized saline and then entered with #3 Lori distally, retrieved some blood but no more clots or anything like that. Distally a Yasargil clamp is now placed and proximally there is obviously no bleeding in to the popliteal because of the vessel is occluded proximally. The PTFE graft is cut under very steep angle in order to spatulate the graft on to the vessel and this is then sewn in a running 5-0 Prolene. When the anastomosis is completed the graft is flushed with heparinized saline and then Yasargil removed. A small clamp is placed on the graft itself. Proximal anastomosis is now attended. Common femoral artery is clamped with small Satinsky and a deep femoral with profunda clamp. The vessel is now opened longitudinally again with Samson scissors in about a length of 1-1/2 inches. There is some atherosclerotic material and this is dissected with a freer dissector and removed. The area rinsed with saline, small debris removed. Proximal graft is now cut under an oblique angle as well and spatulated onto the vessel creating anastomosis with running 5-0 Prolene. When the anastomosis is completed blood flow is re-established. The patient now has a bounding palpable pulse in the distal popliteal artery and it is checked with Doppler being very brisk. The patient now has a palpable popliteal dorsalis pedis and posterior tibial artery. Foot readily warms up. The area is irrigated with copious amounts of saline. Meticulous hemostasis obtained. Some Surgicel placed on the anastomosis and then incision is closed with running 0 Vicryl in layers and 4-0 Monocryl. The patient tolerated the procedure well and at the end of the procedure the patient has bounding distal pulses, well perfused foot. Maddison ALICIA /5:13 PM /8:41 AM GALILEA
[2017-03-13] MEDS: RESP: ALBUTEROL 2.5 MG/IPRATROPIUM 0.5 MG NEB (SCH) INH ×4 (08:45→20:08)
[2017-03-13] MEDS: FLUTICASONE 200 MCG/VILANTEROL 25 MCG INHALER INH SCH (09:00)
[2017-03-13] MEDS: GABAPENTIN 300 MG CAP PO SCH ×2 (09:00→21:27)
[2017-03-13] MEDS: LISINOPRIL 10 MG TAB PO SCH (09:00)
[2017-03-13] MEDS: PANTOPRAZOLE SOD 40 MG DELAYED RELEASE TAB PO SCH (09:00)
[2017-03-13] MEDS: PRASUGREL 10 MG TAB PO SCH (09:00)
[2017-03-13] MEDS: METOPROLOL TARTRATE 50 MG TAB PO SCH ×2 (09:00→21:27)
[2017-03-13] MEDS: MULTIVITAMIN TAB PO SCH (09:00)
[2017-03-13] MEDS: FINASTERIDE 5 MG TAB PO SCH (09:00)
[2017-03-13] MEDS: SODIUM CHLORIDE 0.9% FLUSH 10 ML FLUSH IV FLUSH SCH ×2 (09:00→21:00)
[2017-03-13] MEDS: POLYETHYLENE GLYCOL 17 GM PKG PO SCH (09:00)
[2017-03-13] MEDS: ASPIRIN 81 MG CHEW TAB CHEW SCH (09:00)
--- NOTE | 2017-03-13 09:16 | HHI.FPPN ---
Subjective Remarks No acute events overnight. Pt lying in bed this AM. States that he just finished eating his breakfast. Nurse reports that patient is having "slurred speech", but states that has been going on since he was admitted. Patient reports that he has had difficulty with speech and word finding for about a week and did not have this prior to coming to the hospital. He also states that his throat is itchy. He denies trouble swallowing and weakness. He denies CP and SOB. No complaints this AM. On 6L NC. Vitals are wnl. (Kalyani Loaiza MD R1) Objective Vitals Vital Signs Date Time Temp Pulse Resp B/P (MAP) Pulse Ox O2 Delivery O2 Flow Rate FiO2 03/13/17 07:00 95 Nasal Cannula 6.00 03/13/17 07:00 98.1 65 18 101/69 (80) 95 03/13/17 07:00 61 03/13/17 03:00 98.2 60 14 91/66 (74) 94 03/13/17 03:00 94 Nasal Cannula 6.00 03/13/17 03:00 60 03/13/17 02:00 95 Nasal Cannula 6.00 03/12/17 23:00 81 03/12/17 23:00 97 Bi-Pap 50 03/12/17 23:00 97.9 78 16 91/62 (72) 97 03/12/17 22:43 94 60 03/12/17 20:45 92 Nasal Cannula 6.00 03/12/17 19:00 98.0 86 18 99/67 (78) 91 03/12/17 19:00 90 03/12/17 19:00 91 Nasal Cannula 6.00 03/12/17 15:04 80 03/12/17 15:04 88 Nasal Cannula 6.00 03/12/17 15:03 97.5 80 20 105/33 (57) 88 03/12/17 11:04 71 03/12/17 11:04 90 Nasal Cannula 6.00 03/12/17 11:03 97.7 74 19 104/73 (83) 90 03/12/17 10:18 94 Nasal Cannula 6.00 I/O 03/12/17 03/12/17 03/12/17 03/13/17 03/13/17 03/13/17 07:00 15:00 23:00 07:00 15:00 23:00 Intake Total 150 ml 800 ml 240 ml Output Total 1320 ml 405 ml 1350 ml Balance -1170 ml 395 ml -1110 ml Intake Oral 100 ml 800 ml 240 ml IV Total 50 ml Output Urine Total 1320 ml 405 ml 1350 ml # Bowel Movements 0 0 0 (Kalyani Loaiza MD R1) Result Diagram: 03/13/1733603/13/17336 Objective Remarks GENERAL: obese male lying in bed on 6L O2 NC, in NAD SKIN: Warm and dry. No rashes, lesions EYES: PERRLA, EOMI ENT: OP clear. MMM CARDIOVASCULAR: Regular rate and rhythm without audible murmur, gallop, or rub RESPIRATORY: Breath sounds equal bilaterally. No accessory muscle use. GASTROINTESTINAL: Abdomen soft, nontender, nondistended. No rebound, guarding. Normal BS MUSCULOSKELETAL: No cyanosis. Mild non-pitting pedal edema resolving. NEURO: Awake, alert, oriented x3. Difficulty with speech and word finding. CN II -VII intact. No focal deficits. Strength 5/5 in all extremities. Sensation intact. Procedures tPA therapy for thrombolysis of left SFA 03/08-03/09 (Kalyani Loaiza MD R1) A/P Assessment and Plan Patient is a 76-year-old male with a history of CAD, hypertension, GERD and PAD with blood clots that presented to the ED with a one-week history of progressive shortness of breath following 2 episodes of dizziness. Initial ACS rule out negative. Patient was found to have elevated d-dimer on admission and CTA was performed which was negative for pulmonary embolism, but did show incidental finding of 4.3 cm descending thoracic aortic aneurysm. Chest x-ray was also significant for bibasilar subsegmental atelectasis. He was initially admitted for 24-hour observation and further workup, but due to slow improvement in symptoms, he was admitted for management of his shortness of breath. Pulmonary was been consulted; will perform PFTs when more stable. Vascular surgery was consulted for aortic arch aneurysm which only requires close follow-up with imaging for now; however his CTA with runoff was performed that showed occlusion in left SFA that was determined to be a fibrotic clots not amenable to TPA therapy. Patient POD2 status post left femoropopliteal bypass femoral endarterectomy popliteal endarterectomy and patch on 03/09. On pt became acutely hypoxic with respiratory distress and was transferred to the CVICU on BiPAP. Pt given Lasix 80mg x1 for fluid overload to resolve respiratory distress. 03/12: NAEON. Taken off BiPAP onto partial rebreather, then to 6L NC. 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 Pulmonary consulted and awaiting PFTs; however, likely will be deferred until pt stabilizes more. 03/13: POD #4 s/p left femoropopliteal bypass. Patient stable for transfer back to floor, currently on 6L NC, will receive BiPaP at night. Class II pulmonary hypertension from diastolic dysfunction. No other causes of dyspnea. Patient may need cardiac evaluation including possible left and right heart cath, may have significant component of WHO. Critical care signing off. Discharge Planning Pending clinical improvement Wean 02 NC as tolerated Awaiting swallow eval (Kalyani Loaiza MD R1) Attending Attestation Patient examined and case discussed with resident physicians I have read the above note and agree with the assessment/plan as discussed with me I was involved in all medical decision making for this patient Gary Rosado M.D. (Gary Rosado MD) Problem List: (1) Respiratory distress ICD Codes: R06.03 - Acute respiratory distress Status: Acute Plan: --Course complicated by flash pulmonary edema no improved after aggressive diuresis and BiPaP. Pt now on 6L NC. -Repeat 2-D echo with Doppler ordered by vascular surgery, demonstrated EF of 55 -50, doppler parameters consistent with impaired left ventricular relation ( grade 1 diastolic dysfunction) (2) Shortness of breath ICD Codes: R06.02 - Shortness of breath Status: Resolved Plan: Patient presented with a one-week history of progressive shortness of breath on exertion and at rest At baseline is able to ambulate long distances/perform all ADLs with no shortness of breath Not on home oxygen, requiring oxygen via nasal cannula during hospitalization Pulmonology consulted - appreciate recommendations Dr Chaparro plans to perform bedside PFT Continue Gilbert Previous workup: Chest x-ray on admission significant for bibasilar subsegmental atelectasis Afebrile on admission, blood cultures pending, lactic acid pending Rapid influenza negative BNP within normal limits Incentive spirometry ordered ACS workup on admission negative Trending troponins and EKGs D-dimer elevated on admission to 2.51, CTA negative for PE but did show 4.3 cm ascending thoracic aortic aneurysm (patient does not recall a history of this) Vascular surgery consultation for assessment/management recommendations Aortic ultrasound negative for AAA TSH to WNL at 2.56 (3) Superficial femoral artery occlusion ICD Codes: I70.209 - Unspecified atherosclerosis of [place] arteries of extremities, unspecified extremity Plan: Vascular surgery consulted - appreciate recommendations and intervention * CTA with runoff was performed which showed a clot in the left SFA * Patient status post left femoropopliteal bypass femoral endarterectomy popliteal endarterectomy and patch on 03/09 (4) Aorta aneurysm ICD Codes: I71.9 - Aortic aneurysm of unspecified site, without rupture Plan: Incidental finding on CTA of 4.3 cm ascending thoracic aortic aneurysm; history of this unknown to patient on admission Aortic ultrasound was ordered to screen for AAA and was negative Vascular surgery consulted - appreciate recommendations * Thoracic aneurysm aneurysm will be managed medically and with close follow-up for imaging (5) HTN (hypertension) ICD Codes: I10 - Essential (primary) hypertension Plan: History of hypertension - normotensive w/BP stable at 104/73 today Continue lisinopril 10 mg daily, metoprolol tartrate 50 mg PO BID With finding of thoracic aortic aneurysm, goal systolic blood pressure of less than 120 Vasotec 1.25 mg IV when necessary for systolic blood pressure greater than 160, diastolic blood pressure greater than 90 (6) CAD (coronary artery disease) ICD Codes: I25.10 - Atherosclerotic heart disease of [place] coronary artery without angina pectoris Plan: Patient with known CAD, status post coronary stents placed in 2007 Lipid profile normal ACS/further workup as described above Continue home atorvastatin 80 mg at night, ASA 81 mg daily (7) PAD (peripheral artery disease) ICD Codes: I73.9 - Peripheral vascular disease, unspecified Plan: Continuing home Effient 10 mg daily Further management by vascular surgery (8) BPH (benign prostatic hyperplasia) ICD Codes: N40.0 - Benign prostatic hyperplasia without lower urinary tract symptoms Plan: Continue home finasteride 5 mg by mouth daily (9) FEN Plan: Heart healthy diet Oral fluids only Replete electrolytes as needed Zofran as needed for nausea Tylenol as needed for fever Protonix for GI prophylaxis Lovenox 40 mg subcutaneous every 24 hours for DVT prophylaxis (Kalyani Loaiza MD R1) Kalyani Loaiza MD R1 Mar 13, 2017 09:16 Gary Rosado MD Mar 13, 2017 16:36
[2017-03-13] MEDS: MORPHINE SULFATE 4 MG/ML INJ IV PUSH PRN (09:57)
--- NOTE | 2017-03-13 16:18 | RADRPT ---
EXAM DATE/TIME: 03/13/2017 15:58 [facility] COMPARISON: No previous studies available for comparison. INDICATIONS : Altered mental status. RADIATION DOSE: 40.43 CTDIvol (mGy) MEDICAL HISTORY : Cardiovascular disease. Hypertension. SURGICAL HISTORY : None. ENCOUNTER: Initial ACUITY: 1 day PAIN SCALE: 0/10 LOCATION: cranial TECHNIQUE: Multiple contiguous axial images were obtained of the head. Using automated exposure control and adj ustment of the mA and/or kV according to patient size, radiation dose was kept as low as reasonably a chievable to obtain optimal diagnostic quality images. DICOM format image data is available electro nically for review and comparison. FINDINGS: CEREBRUM: The ventricles are normal for age. There is no acute hemorrhage, mass effect or midline shift. There is a focal low attenuation area in the right parietal-occipital junction seen on axial images numbers 14 and 15 which measures up to approximately 1.6 cm and extends to the surface of the brain. No extr a-axial fluid collections are seen. POSTERIOR FOSSA: There is low attenuation edema involving the right cerebellar hemisphere measuring up to approximatel y 3.5 x 3.6 cm in diameter. The 4th ventricle is midline. The cerebellopontine angle is unremarkable . EXTRACRANIAL: The visualized portion of the orbits is intact. SKULL: The calvaria is intact. No evidence of skull fracture. CONCLUSION: 1. 3.5 x 3.6 cm low attenuation area in the right cerebellar hemisphere area most characteristic of e kike which could be secondary to underlying mass or infarction. 2. Second smaller focal peripheral area of decreased attenuation involving the right parietal-occipit al watershed region concern for edema as well. 3. Further evaluation with MRI imaging with and without contrast is recommended. Damion Gibbons MD on March 13, 2017 at 16:11 Board Certified Radiologist. This report was verified electronically.
[2017-03-13] MEDS: ENOXAPARIN SODIUM 40 MG/0.4 ML SYRINGE SQ SCH (16:35)
[2017-03-13] MEDS ORDERED: MELATONIN 5 MG TAB PO ONE (18:00)
--- NOTE | 2017-03-13 19:33 | EKG ---
Date Performed: 03/11/2017 Time Performed: 10:09:04 PTAGE: 76 years EKG: Sinus tachycardia Inferior T wave changes are nonspecific Since previous tracing, no signif icant change noted Borderline ECG PREVIOUS TRACING : 03/06/2017 06.56 DOCTOR: Toby Cole Interpretating Date/Time 03/13/2017 19:33:12
[2017-03-13 20:36] LABS: TROPONIN I 0.02 NG/ML (0.02-0.05)
[2017-03-13] MEDS: ATORVASTATIN 80 MG TAB PO SCH (21:27)
[2017-03-13] MEDS: MONTELUKAST SODIUM 10 MG TAB PO SCH (21:27)
[2017-03-13] MEDS ORDERED: EPINEPHrine HCL (1:10,000) 1 MG/10 ML SYRINGE ONE (21:43)
[2017-03-13] MEDS ORDERED: ATROPINE SULFATE 1 MG/10 ML SYRINGE ONE (21:44)
[2017-03-13] MEDS ORDERED: GADODIAMIDE PF 287 MG/ML 20 ML VIAL (for RAD MRI) IV PUSH ONE (22:50)
--- NOTE | 2017-03-13 23:20 | RADRPT ---
EXAM DATE/TIME: 03/13/2017 21:58 [facility] COMPARISON: No previous studies available for comparison. INDICATIONS : Mass. CONTRAST: 20 cc Omniscan (gadodiamide) IV MEDICAL HISTORY : Hypertension. Gastroesophageal reflux disease. Benign prostatic hyperplasia, (BPH) CAD. PAD. Erythroc ytosis. SURGICAL HISTORY : Cholecystectomy. Cardiac stents. Left fem-pop bypass. ENCOUNTER: Subsequent ACUITY: 1 day PAIN SCORE: 3/10 LOCATION: cranial TECHNIQUE: Multiplanar, multisequence MRI of the brain was performed both prior to and following the administrat ion of paramagnetic contrast. FINDINGS: There is a 5.2 cm infarct in the right cerebellar hemisphere and small punctate infarcts in the right occipital lobe and left parietal lobe measuring less than a centimeter. No hemorrhage identified. No significant mass effect. No hydrocephalus. Postcontrast images no no abn ormal enhancement. Previous lacunar infarcts noted in the right basal ganglia and cerebellum. CONCLUSION: 1. Approximately 5 cm infarct right cerebellar hemisphere with small punctate infarcts in the right o ccipital lobe and left parietal lobe. 2. Remote lacunar infarcts right basal ganglia and cerebellum. Adrián Caicedo MD on March 13, 2017 at 23:13 Board Certified Radiologist. This report was verified electronically.
--- NOTE | 2017-03-13 23:27 | RADRPT ---
EXAM DATE/TIME: 03/13/2017 21:58 [facility] COMPARISON: No previous studies available for comparison. INDICATIONS : CVA. MEDICAL HISTORY : Hypertension. Gastroesophageal reflux disease. Benign prostatic hyperplasia, (BPH) CAD. PAD. Erythroc ytosis. SURGICAL HISTORY : Cholecystectomy. Cardiac stents. Left fem-pop bypass. ENCOUNTER: Subsequent ACUITY: 1 day PAIN SCORE: 3/10 LOCATION: cranial Please note a normal MRA of the brain does not entirely exclude the possibility of a small aneurysm, nor the possibility of distal intracranial vessel disease. TECHNIQUE: 3D time of flight MRA was performed. Source images, multiplanar STS MIP, and 3D volume MIP reconstru ctions were reviewed. FINDINGS: There is excellent visualization of the major intracranial arteries out to the second-order branch ve ssels. There is no evidence for aneurysm, vessel truncation or stenosis, and no evidence for vascula r malformation. CONCLUSION: 1. Patient within normal limits for age. Adrián Caicedo MD on March 13, 2017 at 23:22 Board Certified Radiologist. This report was verified electronically.
--- NOTE | 2017-03-13 23:47 | RADRPT ---
EXAM DATE/TIME: 03/13/2017 21:58 [facility] COMPARISON: No previous studies available for comparison. INDICATIONS : Stroke. CONTRAST: 20 cc Omniscan (gadodiamide) IV MEDICAL HISTORY : Hypertension. Gastroesophageal reflux disease. Benign prostatic hyperplasia, (BPH) CAD. PAD. Erythroc ytosis. SURGICAL HISTORY : Cholecystectomy. Cardiac stents. Left fem-pop bypass. ENCOUNTER: Subsequent ACUITY: 1 day PAIN SCORE: 0/10 LOCATION: neck Percent stenosis is calculated using the diameter of the stenotic region over the diameter of the nor mal distal internal carotid artery. TECHNIQUE: Bolus infused MRA of the extracranial circulation was performed using a neurovascular coil. Post pro cessing was performed including rotating subvolume maximum intensity projections of each carotid doreen ry, rotating full volume maximum intensity projections of both carotid arteries, sagittal and coronal sliding thin slab reformations of each carotid artery, and left oblique sliding thin slab reformatio n through the aortic arch to include the origin of the arch branch vessels. FINDINGS: AORTIC ARCH: There is a three vessel origin of the great vessels from the aorta. No evidence of ostial narrowing. RIGHT CAROTID: The common carotid artery is intact. The carotid bulb has a normal configuration without ulceration or narrowing. The internal carotid artery lumen is smooth without stenosis. The external carotid ar kiran is intact. LEFT CAROTID: The common carotid artery is intact. The carotid bulb has a normal configuration without ulceration or narrowing. The internal carotid artery lumen is smooth without stenosis. The external carotid ar kiran is intact. VERTEBRALS: Left vertebral artery is dominant CONCLUSION: 1. No significant stenosis in the carotid arteries. Left vertebral artery is dominant. Adrián Caicedo MD on March 13, 2017 at 23:42 Board Certified Radiologist. This report was verified electronically.
[2017-03-14] VITALS (17 sets, daily range): BP systolic 104–123; BP diastolic 70–83; PULSE 57–79; RESP 13–19; TEMP 98.1–99; O2SAT 92–98
[2017-03-14] MEDS: methylPREDNISolone SOD SUCC 40 MG/1 ML VIAL IV PUSH SCH ×3 (05:42→21:09)
[2017-03-14 05:49] LABS: BICARBONATE 24.2 MEQ/L (21.0-32.0); CALCIUM 7.5 MG/DL (8.5-10.1); CREATININE 0.99 MG/DL (0.60-1.30)
[2017-03-14 06:04] LABS: HEMATOCRIT 39.1 % (39.0-51.0); HEMOGLOBIN 13.2 GM/DL (13.0-17.0); MEAN CELL VOLUME 85.2 FL (80.0-100.0); MEAN CORPUSCULAR HEMOGLOBIN 28.8 PG (27.0-34.0); MEAN CORPUSCULAR HGB CONC 33.8 % (32.0-36.0); MEAN PLATELET VOLUME 9.2 FL (7.0-11.0); PLATELET COUNT 212 TH/MM3 (150-450); RED BLOOD COUNT 4.59 MIL/MM3 (4.50-5.90); RED CELL DISTRIBUTION WIDTH 14.3 % (11.6-17.2); WHITE BLOOD COUNT 13.9 TH/MM3 (4.0-11.0)
--- NOTE | 2017-03-14 06:30 | MB ---
cc: LUPILLO JAMES DATE OF CONSULTATION 03/13/2017 HISTORY OF PRESENT ILLNESS A 76-year-old right-handed man with hypertension, diabetes, hypercholesterolemia, RI, stents, Coumadin after a DVT, asthma who came in with peripheral vascular disease, some shortness of breath. He has had a lower extremity arterial bypass. On Monday night his saw him postop; he seemed to be doing fine but then Monday morning he seemed to have some trouble talking and I am called to see him for change in his speech. He says he feels shortness of breath at this time. REVIEW OF SYSTEMS According to his and him, no history of A-fib, renal, hepatic disease, thyroid disease, lupus, ulcer, cancer, seizure or stroke. SOCIAL HISTORY Nonsmoker. Has one beer per day. Lives with his . FAMILY HISTORY Positive for cancer. Negative for seizure or stroke. MEDICATIONS 1. Albuterol nebs. 2. Lovenox 40 q. 24. 3. Morphine p.r.n. which she got 4 mg today. 4. Percocet. 5. Solu-Medrol 40 q. 8. 6. Singulair. 7. Lopressor. 8. 81 of aspirin. 9. Proscar. 10. Prinivil. 11. MiraLax. 12. Effient. 13. Protonix. 14. Multivitamin. 15. Lipitor. 16. Gabapentin 300 b.i.d. PHYSICAL EXAMINATION GENERAL: On exam he has been in sinus rhythm according to the nurse. VITAL SIGNS: Afebrile, 84, 118/80, 18. NECK: There were no carotid bruits. HEART: Regular rhythm. I do not detect a murmur. NEUROLOGICAL EXAMINATION: Pupils are equal. He has what looks like a slight strabismus with the left eye turning in slightly. His has never noticed that and he has not does not have any double vision. Extraocular intact, without nystagmus. Face is symmetric with normal sensation. Tongue was midline. There is no drift. He had normal strength in bilateral upper and the right lower extremity. The left lower extremity is a little hesitant to pick it up off the bed; it does hurt somewhat. He could straighten his knee out when I held his knee up but it appears he may have some proximal weakness there; it is hard to say versus pain. The tibialis anterior had normal strength bilaterally. He is able to pick his knee up off the bed. I would give it about a 3+ to 4-/5. His DTRs are absent throughout. Toes are downgoing bilaterally. Pinprick was intact throughout. He is not ataxic on [id number]. Speech- He is very breathy and short of breath. He is able to repeat, name, calculate. He said it was 2007; he knew the month. He is not aphasic but he talks as if he is short of breath or possibly some edema of his vocal cords. LABORATORY DATA CBC is normal. RPR has been negative. Urine drug screen negative. UA negative. Basic metabolic profile essentially unremarkable. BUN is up to 47; it was 26 on admission. Sugar is normal. Calcium normal. Magnesium, troponin normal. His LDL cholesterol was normal. Coags are normal. CBC is normal. ABGs done two days ago - 7.44, 33 with a pO2 of 59. IMAGING STUDIES He had a CAT scan of his brain tonight, showed a right cerebellar possible stroke and also on the right brain possible stroke. On review of the films there is an abnormality in the right cerebellum, which looks like it could be a mass or edema or an infarct. There is also an old infarct in the left cerebellum. There is a small what looks like an old posterior parietal/posterior MCA infarct. He had a carotid ultrasound done earlier which was normal, non-visualization of the right vertebral artery. IMPRESSION Possibly a right cerebellar infarct. I thought overall he looked fairly well. There is some weakness of the left leg and I do not think his speech sounded so much like and certainly not an aphasia or stroke. It appears he has had several old strokes in the right posterior MCA territory, in the left cerebellum, there was a new one in the right cerebellum could be considered versus a mass. We will check an MRI of the brain and a MRA of the neck and [place]. I note his echocardiogram done yesterday showed a normal ejection fraction, a normal left atrial size, normal mitral valve, normal. aortic valve. PLAN We will recheck a troponin on him. I would also consider that he could have some vocal cord edema that is affecting his speech along with some shortness of breath. I note his chest x-ray was read as essentially negative, however. Lupillo James MD DJHeidi/SSB /6:45 PM /6:04 AM
[2017-03-14] MEDS: RESP: ALBUTEROL 2.5 MG/IPRATROPIUM 0.5 MG NEB (SCH) INH ×4 (07:29→20:25)
--- NOTE | 2017-03-14 07:52 | HHI.PR ---
Subjective Remarks sr Objective Vital Signs Date Time Temp Pulse Resp B/P (MAP) Pulse Ox O2 Delivery O2 Flow Rate FiO2 03/14/17 07:39 93 Nasal Cannula 6.00 03/14/17 07:26 96 40 03/14/17 07:00 98.1 64 14 118/83 (95) 96 03/14/17 07:00 57 03/14/17 07:00 96 Bi-Pap 50 03/14/17 05:52 98 50 03/14/17 05:46 97 Bi-Pap 50 03/14/17 03:30 95 50 03/14/17 03:23 62 03/14/17 03:02 97 Bi-Pap 50 03/14/17 03:02 98.2 58 13 104/70 (81) 97 03/14/17 00:11 Nasal Cannula 6.00 03/14/17 00:11 64 16 120/80 (93) 95 03/14/17 00:00 97 50 03/13/17 23:01 79 03/13/17 20:08 94 Nasal Cannula 6.00 03/13/17 19:30 98.0 80 16 107/67 (80) 92 03/13/17 19:30 Nasal Cannula 6.00 03/13/17 19:01 87 03/13/17 18:00 86 03/13/17 17:00 86 03/13/17 16:00 Nasal Cannula 6.00 03/13/17 16:00 98.2 85 18 118/80 (93) 94 03/13/17 16:00 84 03/13/17 15:00 82 03/13/17 14:00 78 03/13/17 13:00 89 03/13/17 12:00 97.9 83 16 107/75 (86) 91 03/13/17 11:57 94 Nasal Cannula 6.00 03/13/17 11:00 83 03/13/17 11:00 92 Nasal Cannula 6.00 03/13/17 11:00 72 03/13/17 10:00 92 03/13/17 09:00 84 I/O 03/13/17 03/13/17 03/13/17 03/14/17 03/14/17 03/14/17 07:00 15:00 23:00 07:00 15:00 23:00 Intake Total 240 ml 480 ml 240 ml Output Total 1350 ml 600 ml 750 ml Balance -1110 ml -120 ml -510 ml Intake Oral 240 ml 480 ml 240 ml Output Urine Total 1350 ml 600 ml 750 ml # Bowel Movements 0 0 Result Diagram: 03/14/1732603/14/17326 Objective Remarks left eye still slight turn oin no diplopia must be old vff face sym 5/5 t/o awake alert voice still soft Assessment and Plan Assessment and Plan imp bilat cva old left cbllr new r cbllr with some blood in it new r parietal and left parietal left vert dom and ? if origin stenosis check cta check holter normally i would coumadinze but there is a hemorrhagic sign component to the r cbllr infarct so will wait few weeks does he need to be on asa and effient or could he dc later with blood in cbllm preferred oob need to watch his neuro exam with the r cbllr infarct Lupillo Chou MD Mar 14, 2017 07:52
[2017-03-14] MEDS: ASPIRIN 81 MG CHEW TAB CHEW SCH (08:47)
[2017-03-14] MEDS: GABAPENTIN 300 MG CAP PO SCH ×2 (08:47→21:09)
[2017-03-14] MEDS: FINASTERIDE 5 MG TAB PO SCH (08:47)
[2017-03-14] MEDS: LISINOPRIL 10 MG TAB PO SCH (08:47)
[2017-03-14] MEDS: METOPROLOL TARTRATE 50 MG TAB PO SCH ×2 (08:47→21:08)
[2017-03-14] MEDS: POLYETHYLENE GLYCOL 17 GM PKG PO SCH ×2 (08:47→15:22)
[2017-03-14] MEDS: FLUTICASONE 200 MCG/VILANTEROL 25 MCG INHALER INH SCH (08:48)
[2017-03-14] MEDS: SODIUM CHLORIDE 0.9% FLUSH 10 ML FLUSH IV FLUSH SCH ×2 (08:48→21:08)
[2017-03-14] MEDS: PANTOPRAZOLE SOD 40 MG DELAYED RELEASE TAB PO SCH (08:48)
[2017-03-14] MEDS: MULTIVITAMIN TAB PO SCH (08:48)
[2017-03-14] MEDS ORDERED: IOHEXOL 350 MG/ML 10 ML VIAL (for RAD DIAG) IVCONTRAST ONE (10:48)
--- NOTE | 2017-03-14 11:41 | RADRPT ---
EXAM DATE/TIME: 03/14/2017 10:44 [place] COMPARISON: MRA BRAIN W/O CONTRAST, March 13, 2017, 21:58. MRA CAROTIDS W CONTRAST, March 13, 2017, 21:58. MRI BRAIN W & W/O CONTRAST, March 13, 2017, 21:58. INDICATIONS : Evaluate for left verterbral origin stenosis. IV CONTRAST: 74 cc Omnipaque 350 (iohexol) IV RADIATION DOSE: 28.74 CTDIvol (mGy) MEDICAL HISTORY : Cardiovascular disease. Asthma SURGICAL HISTORY : Cholecystectomy. Cardiac Stents ENCOUNTER: Initial ACUITY: 1 day PAIN SCALE: 0/10 LOCATION: Left neck Elevated flow velocities and ICA/CCA ratios have been found to correlate with increased degrees of vessel stenosis, calculated as percentage of diameter relative to a normal segment of distal ICA/CCA. TECHNIQUE: Volumetric scanning was performed using a multirow detector CT scanner. The data was post processed with a variety of visualization algorithms including full-volume maximum intensity projection, multip lanar sliding thin-slab reformation, curved-planar reformation, and surface-rendering techniques. Us ing automated exposure control and adjustment of the mA and/or kV according to patient size, radiatio n dose was kept as low as reasonably achievable to obtain optimal diagnostic quality images. DICOM f ormat image data is available electronically for review and comparison. FINDINGS: AORTIC ARCH: There is a three-vessel origin of the great vessels from the aorta. No evidence of ostial narrowing. RIGHT CAROTID: The common carotid artery is intact. The carotid bulb has a normal configuration without ulceration o r narrowing. The internal carotid artery lumen is smooth without stenosis. The external carotid doreen ry is intact. There is minimal nonstenotic calcific plaque in the bulb and initial segment the operations intern al carotid LEFT CAROTID: The common carotid artery is intact. The carotid bulb has a normal configuration without ulceration or narrowing. The internal carotid artery lumen is smooth without stenosis. The external carotid ar kiran is intact. Minimal calcific plaquing nonstenotic at the bulb VERTEBRALS: The vertebral arteries have a symmetric diameter. No stenotic lesions are seen. Left vertebral arter y is dominant with a diminutive right vertebral artery. CONCLUSION: Minimal calcific plaquing nonstenotic bilateral carotid bulbs and initial segment of the right operations intern al carotid. Lakhwinder Adams MD on March 14, 2017 at 11:32 Board Certified Radiologist. This report was verified electronically.
[2017-03-14] MEDS ORDERED: BISACODYL 10 MG SUPP RECTAL PRN (12:30)
[2017-03-14] MEDS: DOCUSATE SODIUM 50 MG/SENNA 8.6 MG TAB PO SCH ×2 (12:30→21:09)
[2017-03-14] MEDS ORDERED: MAGNESIUM HYDROXIDE SUSP 30 ML CUP PO PRN (12:30)
[2017-03-14] MEDS ORDERED: SENNOSIDES 8.6 MG TAB PO PRN (12:30)
[2017-03-14] MEDS ORDERED: LACTULOSE SYRUP 20 GM/30 ML CUP PO PRN (12:30)
--- NOTE | 2017-03-14 13:03 | PD.CONS ---
(Inder Tucker MD) Neurosurgery (Magalie Hoskins) HPI Consult Requested By Primary Care Physician Non-Staff (Inder Tucker MD) Service Neurosurgery Consult Requested By Dr. Ordaz Reason for Consult Right cerebellar stroke with mass effect History of Present Illness Mr. Gallagher is a very pleasant 76 year old male. History was mostly obtained from his at bedside due to his severe dysarthria. His reports the patient presented to the ED on 03/05/2017 initially for shortness of breath. He has a known history of blood clots in his leg and is being managed in [place]. They are currently here on vacation for 2 months. Initially he was found to have elevated D-dimers but an angiography was negative for pulmonary embolism. He was evaluated by vascular surgeon Dr. Hernandez. He is being managed nonoperatively for thoracic aortic aneurysm. However underwent a fempop bypass surgery on 03/09/2017 due to an occlusion. The reports following surgery in recovery the patient was speaking well and normally. The following day she noted some dysarthria but attributed it to his current shortness of breath. He had an episode of acute hypoxia with respiratory distress and was monitored in CVICU. His reports his oxygenation improved however his dysarthria did not and he was worked up for possible CVA. He underwent an MRI brain which showed an acute right cerebellar ischemic infarction with punctate infarcts in the right occipital and left parietal lobes. No hydrocephalus. The patient does report positive headaches as well as possible increase drowsiness. However he remains and appear to be awake and alert. He denies focal weakness, extremity paresthesias, vision changes. Neurosurgical evaluation was requested. (Magalie Hoskins) Review of Systems ROS Limitations: Clinical Condition, Speech Impaired Neurologic: COMPLAINS OF: Headache, DENIES: Localized weakness (Magalie Hoskins) Past Family Social History Allergies: Coded Allergies: chocolate flavor (Verified Allergy, Unknown, 03/05/17) milk (Verified Allergy, Unknown, 03/05/17) orange juice (Verified Allergy, Unknown, 03/05/17) peanut (Verified Allergy, Unknown, 03/05/17) Uncoded Allergies: granulated sugar (Allergy, Unknown, 03/05/17) Past Medical History Hypertension Peripheral artery disease Coronary artery disease GERD BPH Past Surgical History Coronary artery stent Cholecystectomy Discectomy Reported Medications Reviewed in EMR Active Ordered Medications Current Medications Medications (Trade) Dose Ordered Sig/Lizbeth Route PRN Reason Start Time Stop Time Status Last Admin Dose Admin Sodium Chloride (NS Flush) 2 ml UNSCH PRN IV FLUSH FLUSH AFTER USING IV ACCESS 03/05/17 22:00 Sodium Chloride (NS Flush) 2 ml BID IV FLUSH 03/06/17 09:00 03/14/17 08:48 Aspirin (Aspirin Chew) 81 mg DAILY CHEW 03/06/17 09:00 03/14/17 08:47 Atorvastatin Calcium (Lipitor) 80 mg HS PO 03/05/17 22:15 03/13/17 21:27 Finasteride (Proscar) 5 mg DAILY PO 03/06/17 09:00 03/14/17 08:47 Fluticasone/ Vilanterol (Breo Ellipta 200-25 Inh) 1 puff DAILY INH 03/06/17 09:00 03/13/17 09:00 Gabapentin (Neurontin) 300 mg BID PO 03/05/17 22:15 03/14/17 08:47 Lisinopril (Prinivil) 10 mg DAILY PO 03/06/17 09:00 03/14/17 08:47 Polyethylene Glycol (Miralax) 17 gm DAILY PO 03/06/17 09:00 03/14/17 08:47 Prasugrel (Effient) 10 mg DAILY PO 03/06/17 09:00 Future Hold 03/12/17 08:51 Pantoprazole Sodium (Protonix) 40 mg DAILY PO 03/06/17 09:00 03/14/17 08:48 Multivitamins (Theragran) 1 tab DAILY PO 03/06/17 09:00 03/14/17 08:48 Albuterol Sulfate (Albuterol Neb) 2.5 mg Q4HR WHILE AWAKE NEB PRN NEB SHORTNESS OF BREATH 03/05/17 22:15 03/13/17 00:37 Ondansetron HCl (Zofran Inj) 4 mg Q6HR PRN IV PUSH NAUSEA OR VOMITING 03/05/17 22:15 03/10/17 10:46 Acetaminophen (Tylenol) 325 mg Q4H PRN PO FEVER 03/05/17 22:15 03/11/17 00:55 Metoprolol Tartrate (Lopressor) 50 mg Q12HR PO 03/06/17 10:00 03/14/17 08:47 Montelukast Sodium (Singulair) 10 mg HS PO 03/06/17 21:00 03/13/17 21:27 Methylprednisolone Sodium Succinate (SoluMEDROL INJ) 40 mg Q8HR IV PUSH 03/07/17 14:00 03/14/17 05:42 Morphine Sulfate (Morphine Inj) 4 mg Q3H PRN IV PUSH 6-10 03/09/17 16:30 03/13/17 09:57 Oxycodone/ Acetaminophen (Percocet 5-325 Mg) 1 tab Q4H PRN PO 3-5 03/09/17 16:30 03/11/17 20:27 Albuterol/ Ipratropium (Duoneb Neb) 1 ampule QID NEB INH 03/11/17 16:00 03/14/17 13:26 Senna/Docusate Sodium (Arleth-Colace) 1 tab BID PO 03/14/17 12:30 Magnesium Hydroxide (Milk Of Magnesia Liq) 30 ml Q12H PRN PO Mild constipation 03/14/17 12:30 Sennosides (Senokot) 17.2 mg Q12H PRN PO Moderate constipation 03/14/17 12:30 Bisacodyl (Dulcolax Supp) 10 mg DAILY PRN RECTAL SEVERE CONSITIPATION 03/14/17 12:30 Lactulose (Lactulose Liq) 30 ml DAILY PRN PO SEVERE CONSITIPATION 03/14/17 12:30 Family History Mother -hypertension Father -CVA Sister -colon cancer Social History Resides in [place] Drinks 1-2 beers daily, denies tobacco or illicit drug use. (Magalie Hoskins) Physical Exam Vital Signs Vital Signs Date Time Temp Pulse Resp B/P (MAP) Pulse Ox O2 Delivery O2 Flow Rate FiO2 03/14/17 11:00 99 Nasal Cannula 6.00 03/14/17 11:00 99.0 79 16 122/76 (91) 97 03/14/17 11:00 75 03/14/17 07:39 93 Nasal Cannula 6.00 03/14/17 07:26 96 40 03/14/17 07:00 98.1 64 14 118/83 (95) 96 03/14/17 07:00 57 03/14/17 07:00 96 Bi-Pap 50 03/14/17 05:52 98 50 03/14/17 05:46 97 Bi-Pap 50 03/14/17 03:30 95 50 03/14/17 03:23 62 03/14/17 03:02 97 Bi-Pap 50 03/14/17 03:02 98.2 58 13 104/70 (81) 97 03/14/17 00:11 Nasal Cannula 6.00 03/14/17 00:11 64 16 120/80 (93) 95 03/14/17 00:00 97 50 03/13/17 23:01 79 03/13/17 20:08 94 Nasal Cannula 6.00 03/13/17 19:30 98.0 80 16 107/67 (80) 92 03/13/17 19:30 Nasal Cannula 6.00 03/13/17 19:01 87 03/13/17 18:00 86 03/13/17 17:00 86 03/13/17 16:00 Nasal Cannula 6.00 03/13/17 16:00 98.2 85 18 118/80 (93) 94 03/13/17 16:00 84 03/13/17 15:00 82 03/13/17 14:00 78 Physical Exam General: Mr. Gallagher is comfortable, in no obvious distress during examination. Neuro: Awake, alert and oriented to person, place, and time. Speech is severely dysarthric. Can follow single and multi-step commands without apraxia. Cranial nerve examination: pupils to be equal, round, and reactive to light. Extra-ocular movements are intact with normal convergence. Facial motor and sensory function are normal and symmetrical. Gross hearing is intact, bilaterally, to finger rub. Tongue protruded midline. The uvula is midline and elevates symmetrically with the soft palate. Sternocleidomastoid and deltoid muscles have normal and symmetrical strength. Other cranial nerves are intact. HENT: Normocephalic, atraumatic. Gross hearing intact bilaterally. Eyes: Pupils 4 mm equal round. Extra-ocular movement intact. Nonicteric sclera. Neck: soft, supple Extremities No peripheral edema. 5/5 in all muscle groups of both upper extremities including deltoid, biceps, triceps and tea tree farmer. In the lower extremities exam limited to the recent surgery however he had gross proximal movement bilaterally, 4-5 distal lower extremity strength Sensory examination is intact pinprick in both the upper and lower extremities Deep tendon reflexes are 1+ biceps, triceps, and brachioradialis, bilaterally, in the upper extremities. In the lower extremities, the patellar and Achilles are 1+, bilaterally. There is a bilateral plantar flexion response. No clonus. Cerebellar: mild dysmetria with right finger to nose, grossly intact left side Lungs: clear, nonlabored breathing, no wheezing Heart: S1, S2 Skin: warm and dry, no cyanosis. Laboratory Laboratory Tests Test 03/14/17 03:27 White Blood Count 13.9 Red Blood Count 4.59 Hemoglobin 13.2 Hematocrit 39.1 Mean Corpuscular Volume 85.2 Mean Corpuscular Hemoglobin 28.8 Mean Corpuscular Hemoglobin Concent 33.8 Red Cell Distribution Width 14.3 Platelet Count 212 Mean Platelet Volume 9.2 Hematology Comments Blood Urea Nitrogen 42 Creatinine 0.99 Random Glucose 116 Calcium Level 7.5 Sodium Level 138 Potassium Level 4.2 Chloride Level 105 Carbon Dioxide Level 24.2 Anion Gap 9 Estimat Glomerular Filtration Rate 73 Date/Time Source Procedure Growth Status 03/06/17 00:53 Blood Peripheral Aerobic Blood Culture - Final NO GROWTH IN 5 DAYS Complete 03/06/17 00:53 Blood Peripheral Anaerobic Blood Culture - Final NO GROWTH IN 5 DAYS Complete 03/05/17 17:47 Nasal Aspirate Influenza Types A,B Antigen (ASTER) - Final NEGATIVE FOR FLU A AND B ANTIGEN.... Complete (Inder Tucker MD) Physical Exam General: Mr. Gallagher is comfortable, in no obvious distress during examination. Neuro: Awake, alert and oriented to person, place, and time. Speech is severely dysarthric. Can follow single and multi-step commands without apraxia. Cranial nerve examination: pupils to be equal, round, and reactive to light. Extra-ocular movements are intact with normal convergence. Facial motor and sensory function are normal and symmetrical. Gross hearing is intact, bilaterally, to finger rub. Tongue protruded midline. The uvula is midline and elevates symmetrically with the soft palate. Sternocleidomastoid and deltoid muscles have normal and symmetrical strength. Other cranial nerves are intact. HENT: Normocephalic, atraumatic. Gross hearing intact bilaterally. Eyes: Pupils 4 mm equal round. Extra-ocular movement intact. Nonicteric sclera. Neck: soft, supple Extremities No peripheral edema. 5/5 in all muscle groups of both upper extremities including deltoid, biceps, triceps and tea tree farmer. In the lower extremities exam limited to the recent surgery however he had gross proximal movement bilaterally, 4-5 distal lower extremity strength Sensory examination is intact pinprick in both the upper and lower extremities Deep tendon reflexes are 1+ biceps, triceps, and brachioradialis, bilaterally, in the upper extremities. In the lower extremities, the patellar and Achilles are 1+, bilaterally. There is a bilateral plantar flexion response. No clonus. Cerebellar: mild dysmetria with right finger to nose, grossly intact left side Lungs: clear, nonlabored breathing, no wheezing Heart: S1, S2 Skin: warm and dry, no cyanosis. (Magalie Hoskins) Result Diagram: 03/14/17 0327 03/14/17 0327 Imaging Last Impressions Neck CTA 03/14/17 0000 Signed Impressions: Service Date/Time: Tuesday, March 14, 2017 10:44 - CONCLUSION: Minimal calcific plaquing nonstenotic bilateral carotid bulbs and initial segment of the right internal carotid. Lakhwinder Adams MD Neck Magnetic Resonance Angiography 03/13/171852 Signed Impressions: Service Date/Time: Monday, March 13, 2017 21:58 - CONCLUSION: 1. No significant stenosis in the carotid arteries. Left vertebral artery is dominant. Adrián Caicedo MD Head Magnetic Resonance Angiography 03/13/171852 Signed Impressions: Service Date/Time: Monday, March 13, 2017 21:58 - CONCLUSION: 1. Patient within normal limits for age. Adrián Caicedo MD Head CT 03/13/17 1487 Signed Impressions: Service Date/Time: Monday, March 13, 2017 15:58 - CONCLUSION: 1. 3.5 x 3.6 cm low attenuation area in the right cerebellar hemisphere area most characteristic of edema which could be secondary to underlying mass or infarction. 2. Second smaller focal peripheral area of decreased attenuation involving the right parietal-occipital watershed region concern for edema as well. 3. Further evaluation with MRI imaging with and without contrast is recommended. Damion Gibbons MD Chest X-Ray 03/13/17 0800 Signed Impressions: Service Date/Time: Monday, March 13, 2017 08:03 - CONCLUSION: 1. No acute abnormality or significant interval change. Donovan Baez MD Brain MRI 03/13/17 0000 Signed Impressions: Service Date/Time: Monday, March 13, 2017 21:58 - CONCLUSION: 1. Approximately 5 cm infarct right cerebellar hemisphere with small punctate infarcts in the right occipital lobe and left parietal lobe. 2. Remote lacunar infarcts right basal ganglia and cerebellum. Adrián Caicedo MD Lower Extremity Angiography 03/08/17 0000 Signed Impressions: Service Date/Time: Wednesday, March 08, 2017 13:02 - CONCLUSION: 1. Distal left above-knee popliteal artery occlusion with plaque and chronic thrombus extending to the distal SFA with mature genicular collaterals. Given the apparent chronicity of the findings, planned TPA thrombolysis was not performed. Donovan Baez MD Liver Ultrasound 03/07/17 0000 Signed Impressions: Service Date/Time: Tuesday, March 07, 2017 18:01 - CONCLUSION: 1. Multiple large right renal cysts. No hydronephrosis a very ductal dilatation. Cholecystectomy. Mild fatty liver. Adrián Caicedo MD Aorta w/Runoff CTA 03/06/17 0000 Signed Impressions: Service Date/Time: Tuesday, March 07, 2017 11:30 - CONCLUSION: 1. There is abrupt occlusion of the left superficial femoral at the adductor hiatus and extending down to the trifurcation. This appears possibly embolic as there is very little diffuse vascular disease. 2. Adequate inflow a variety. 3. Enlargement of the prostate. 4. Multiple renal cysts bilaterally. 5. Enlargement of the prostate. 6. Small bilateral inguinal hernias. Judah Nelson MD Aorta Ultrasound 03/06/17 0000 Signed Impressions: Service Date/Time: Monday, March 06, 2017 07:48 - CONCLUSION: 1. No abdominal aortic aneurysm. Size measurements are given above. Judah Nelson MD CT Angiography 03/05/17 1920 Signed Impressions: Service Date/Time: Sunday, March 05, 2017 19:57 - CONCLUSION: 1. No evidence for pulmonary embolism. 2. Bibasilar densities likely atelectasis. 3. Coronary artery calcifications. 4. Mild thoracic aortic aneurysm measures 4.3 cm. Bradley Simmons MD Carotid Artery Ultrasound 03/05/17 0000 Signed Impressions: Service Date/Time: Sunday, March 05, 2017 22:16 - CONCLUSION: 1. No hemodynamically significant stenosis in either carotid artery. 2. Nonvisualization right vertebral artery. Bradley Simmons MD (Magalie Hoskins) Attending Statement The patient has suffered a cerebellar4 infarction. Workup is in progress I suggest to assess for cardiac arrythmia. I also recommend a transesophageal echocardiogram I recommend a hypercoagulable workup Neuro. Continue neuro checks in a serial fashion. Physical therapy and occupational therapy evaluation Pulmonary. Continue aggressive pulmonary toilette, nasotracheal suction, and breathing treatments with nebulizers. Daily PT and OT Nutrition. Tolerating Oral diet Renal. Continue to monitor closely urine output, BUN and creatinine Endocrine. Continue to Monitor serial Acu checks and SSI as needed in detail ID continue to monitor for signs of infection Continue Protonix for stress ulcer prophylaxis Continue Vijay hose and SCD's for DVT prophylaxis Further recommendations will be provided depending on the patient's clinical evaluation and follow up studies. (Inder Tucker MD) Inder Tucker MD Mar 14, 2017 13:03 Magalie Hoskins Mar 14, 2017 16:12
--- NOTE | 2017-03-14 14:34 | PD.CAR.PN ---
CVT Progress Note Subjective/Hospital Course: I reviewed the patient's CTA Patient has good flow on the right and vessels are fairly clean but on the left side patient has sudden occlusion of the SFA at the level of the groin and this extends all the way down through the adductor canal to the popliteal artery In face of the OR's of the vessels which appeared to be fairly clean I believe this is a clot Discussed this at length with Dr. Morgan Nelson Suggest patient undergo TPA lysis and if that is not successful he can always have surgical thromboembolectomy Will refer for tPA lysis tomorrow 03/08/17 Patient was scheduled today to undergo TPA lysis of the left leg clot Once the catheter was inserted its noted that this clot is to take into fibrous to remove and at this point the only option is femoropopliteal bypass Patient does have ischemia to the left leg but no limb threatening changes and reconstituted the blood flow at the popliteal level I'll give an option to have the femoropopliteal bypasses done here or at home up [place]. Either option is acceptable as long as its timely 03/10/17 Patient is status post left femoropopliteal bypass femoral endarterectomy popliteal endarterectomy and patch Patient has bounding femoral-popliteal dissolves pedis and posterior tibial pulses Foot is warm graft is widely patent Unfortunately Rodriguez catheter was removed yesterday and patient urinated on his incision throughout the night. I found him in bed with the urine covered wet sheets this a.m. Patient appears to be slightly under hydrated considering that IV was not running through the night Patient did not receive dinner because he was nauseous but didn't receive breakfast either so I ordered breakfast Out of bed today with assistance Change dressings Transferred to surgical floor 03/11/17 Incision clean and dry. Excellent distal pulses Strong dopplerable and even palpable dorsalis pedis and dopplerable posterior tibial Strong signal dopplerable popliteal and the graft Foot nice and warm well perfused with normal capillary refill This morning patient apparently developed respiratory distress with hypotension. Patient was emergently transferred to CVICU Now patient is good bilateral breath sounds and is on 60% FiO2 BiPAP mask This certainly looks most like a fluid overload and mobilization of the third space, rather than pulmonary embolism As far as the d-dimer goes, positive d-dimer which is usually vascular higher than 200 ng/mL may indicate pulmonary embolism but this also seen in patients with a cardiac failure, syncope, trauma etc. On the other hand low d-dimer reliably excludes pulmonary embolism. In this particular patient d-dimer a 16 ng/mL which is clearly negative value as far as pulmonary embolism is concerned and I don't see any value in further studying this line. Agree with diuresis and pulmonary support When all said and done patient will likely need to rehabilitation and family would like to keep him at [facility] 03/12/17 Doing much better. Foot warm. Excellent distal pulses and graft flow is brisk. Incisions clean dry. Bilat BS, resp distress resolved. Great work by Dr Perez 03/14/17 I was called by medical residents today stating that yesterday patient started slurring speech which since somewhat resolved. He has multiple bilateral cerebral infarcts cause of which is somewhat elusive considering the fact that patient's cardiac echo was pretty much normal preop Of course posterior circulation infarcts in general are in part caused by vertebral artery stenoses. This on the other hand looks more like an embolic event the repeated episodes over period of time. Some areas appear more acute than others Carotid ultrasound was normal without any areas of increased velocity. Carotid CTA and MRA of the neck both confirm minimal carotid disease and dominant left vertebral artery. Today patient is doing better he doesn't seem to be slurring speech however he is somewhat short of breath and hoarse Motoric the patient is fully intact and this morning both legs have equal strength As far as the leg is concerned he is excellent distal flow graft is widely patent From my point patient doesn't need to be on platelet inhibitors and a baby aspirin a day is okay but not mandatory Continue to follow nothing to add to care right now Objective: Vital Signs Date Time Temp Pulse Resp B/P (MAP) Pulse Ox O2 Delivery O2 Flow Rate FiO2 03/14/17 13:28 95 Nasal Cannula 6.00 03/14/17 11:00 99 Nasal Cannula 6.00 03/14/17 11:00 99.0 79 16 122/76 (91) 97 03/14/17 11:00 75 03/14/17 07:39 93 Nasal Cannula 6.00 03/14/17 07:26 96 40 03/14/17 07:00 98.1 64 14 118/83 (95) 96 03/14/17 07:00 57 03/14/17 07:00 96 Bi-Pap 50 03/14/17 05:52 98 50 03/14/17 05:46 97 Bi-Pap 50 03/14/17 03:30 95 50 03/14/17 03:23 62 03/14/17 03:02 97 Bi-Pap 50 03/14/17 03:02 98.2 58 13 104/70 (81) 97 03/14/17 00:11 Nasal Cannula 6.00 03/14/17 00:11 64 16 120/80 (93) 95 03/14/17 00:00 97 50 03/13/17 23:01 79 03/13/17 20:08 94 Nasal Cannula 6.00 03/13/17 19:30 98.0 80 16 107/67 (80) 92 03/13/17 19:30 Nasal Cannula 6.00 03/13/17 19:01 87 03/13/17 18:00 86 03/13/17 17:00 86 03/13/17 16:00 Nasal Cannula 6.00 03/13/17 16:00 98.2 85 18 118/80 (93) 94 03/13/17 16:00 84 03/13/17 15:00 82 Labs: Laboratory Tests Test 03/14/17 03:27 White Blood Count 13.9 TH/MM3 (4.0-11.0) Red Blood Count 4.59 MIL/MM3 (4.50-5.90) Hemoglobin 13.2 GM/DL (13.0-17.0) Hematocrit 39.1 % (39.0-51.0) Mean Corpuscular Volume 85.2 FL (80.0-100.0) Mean Corpuscular Hemoglobin 28.8 PG (27.0-34.0) Mean Corpuscular Hemoglobin Concent 33.8 % (32.0-36.0) Red Cell Distribution Width 14.3 % (11.6-17.2) Platelet Count 212 TH/MM3 (150-450) Mean Platelet Volume 9.2 FL (7.0-11.0) Hematology Comments Blood Urea Nitrogen 42 MG/DL (7-18) Creatinine 0.99 MG/DL (0.60-1.30) Random Glucose 116 MG/DL (74-106) Calcium Level 7.5 MG/DL (8.5-10.1) Sodium Level 138 MEQ/L (136-145) Potassium Level 4.2 MEQ/L (3.5-5.1) Chloride Level 105 MEQ/L (98-107) Carbon Dioxide Level 24.2 MEQ/L (21.0-32.0) Anion Gap 9 MEQ/L (5-15) Estimat Glomerular Filtration Rate 73 ML/MIN (>89) Result Diagram: 03/14/17 0327 03/14/17 0327 Calin Hernandez MD Mar 14, 2017 14:34
--- NOTE | 2017-03-14 15:29 | HHI.FPPN ---
Subjective Remarks Patient seen and examined this morning. During evaluation yesterday, patient was found to have new finding of slurred speech. Previous health care providers were contacted to confirm change in status. Stat CT head was ordered which found right cerebellar edema. MRI was then ordered finding a 5 cm infarct of the right cerebellar hemisphere. Neurology was consulted and recommended further workup. Today the patient is resting comfortably with his at bedside. Patient does not participate fully in interview or review of systems due to his limited speech. Both the patient and are visibly upset about his recent event. His clinical findings and medical plan was thoroughly discussed with all questions answered. Currently the patient does not endorse any new complaints and denies any fevers, chills, shortness breath, chest pain, NVD, or calf tenderness. (Lv Ordaz MD R2) Objective Vitals Vital Signs Date Time Temp Pulse Resp B/P (MAP) Pulse Ox O2 Delivery O2 Flow Rate FiO2 03/14/17 13:28 95 Nasal Cannula 6.00 03/14/17 11:00 99 Nasal Cannula 6.00 03/14/17 11:00 99.0 79 16 122/76 (91) 97 03/14/17 11:00 75 03/14/17 07:39 93 Nasal Cannula 6.00 03/14/17 07:26 96 40 03/14/17 07:00 98.1 64 14 118/83 (95) 96 03/14/17 07:00 57 03/14/17 07:00 96 Bi-Pap 50 03/14/17 05:52 98 50 03/14/17 05:46 97 Bi-Pap 50 03/14/17 03:30 95 50 03/14/17 03:23 62 03/14/17 03:02 97 Bi-Pap 50 03/14/17 03:02 98.2 58 13 104/70 (81) 97 03/14/17 00:11 Nasal Cannula 6.00 03/14/17 00:11 64 16 120/80 (93) 95 03/14/17 00:00 97 50 03/13/17 23:01 79 03/13/17 20:08 94 Nasal Cannula 6.00 03/13/17 19:30 98.0 80 16 107/67 (80) 92 03/13/17 19:30 Nasal Cannula 6.00 03/13/17 19:01 87 03/13/17 18:00 86 03/13/17 17:00 86 03/13/17 16:00 Nasal Cannula 6.00 03/13/17 16:00 98.2 85 18 118/80 (93) 94 03/13/17 16:00 84 I/O 03/13/17 03/13/17 03/13/17 03/14/17 03/14/17 03/14/17 07:00 15:00 23:00 07:00 15:00 23:00 Intake Total 240 ml 480 ml 240 ml Output Total 1350 ml 600 ml 750 ml Balance -1110 ml -120 ml -510 ml Intake Oral 240 ml 480 ml 240 ml Output Urine Total 1350 ml 600 ml 750 ml # Bowel Movements 0 0 (Lv Ordaz MD R2) Result Diagram: 03/14/1732603/14/17326 Objective Remarks GENERAL: Elderly gentleman lying in bed in no acute distress with at bedside. PSYCHIATRIC: Patient becomes upset when discussing recent stroke. Less talkative today compared to prior encounters. HEENT: Atraumatic, normocephalic with EOMI. No rhinorrhea. MMM. No visible LAD or JVD appreciated. RESPIRATORY: Clear to auscultation bilaterally with no CRW appreciated anteriorly. Poor overall air movement. Patient currently on 6 L nasal cannula. CARDIOVASCULAR: RRR, no m/r/g. Radial and DP pulses 2+ and symmetric bilaterally. Brisk capillary refill. ABDOMEN: Soft, nondistended with positive bowel sounds. Patient tender to mild palpation in all 4 quadrants. No masses appreciated. MUSCULOSKELETAL: No calf tenderness. No edema appreciated. Femoropopliteal bypass incision sites, CDI bandages. SKIN: Essentially clear with no significant rash or lesions. Adequate skin turgor. NEUROLOGICAL: Speech- Voice is hoarse with some in comprehensible words. Patient has intermittent word finding. Decreased interaction and exam compared to prior encounters. Cranial nerves- 2 through 12 intact. Motor/sensory/reflexes- Face- No facial droop. No tongue deviation. RUE- 5/5 strength in all musc groups, sensation intact. LUE- 5/5 strength in all musc groups, sensation intact. RLE- 5/5 strength in all musc groups, sensation intact. LLE- 5/5 strength in all musc groups, sensation intact. Procedures tPA therapy for thrombolysis of left SFA 1/24-03/09 (Lv Ordaz MD R2) A/P Assessment and Plan Patient is a 76-year-old male with a history of CAD, hypertension, GERD and PAD with blood clots that presented to the ED with a one-week history of progressive shortness of breath following 2 episodes of dizziness. Initial ACS rule out negative. Patient was found to have elevated d-dimer on admission and CTA was performed which was negative for pulmonary embolism, but did show incidental finding of 4.3 cm descending thoracic aortic aneurysm. Chest x-ray was also significant for bibasilar subsegmental atelectasis. He was initially admitted for 24-hour observation and further workup, but due to slow improvement in symptoms, he was admitted for management of his shortness of breath. Pulmonary was been consulted; will perform PFTs when more stable. Vascular surgery was consulted for aortic arch aneurysm which only requires close follow-up with imaging for now; however his CTA with runoff was performed that showed occlusion in left SFA that was determined to be a fibrotic clots not amenable to TPA therapy. Patient POD2 status post left femoropopliteal bypass femoral endarterectomy popliteal endarterectomy and patch on 03/09. On pt became acutely hypoxic with respiratory distress and was transferred to the CVICU on BiPAP. Pt given Lasix 80mg x1 for fluid overload to resolve respiratory distress. 03/12: NAEON. Taken off BiPAP onto partial rebreather, then to 6L NC. Respiratory distress resolved by route carrier. Pulmonary consulted and awaiting PFTs; however, likely will be deferred until pt stabilizes more. 03/13: POD #4 s/p left femoropopliteal bypass. Patient stable for transfer back to floor, currently on 6L NC, will receive BiPaP at night. Class II pulmonary hypertension from diastolic dysfunction. No other causes of dyspnea. Patient may need cardiac evaluation including possible left and right heart cath, may have significant component of WHO. Critical care signing off. Discharge Planning Pending clinical improvement (Lv Ordaz MD R2) Attending Attestation Patient examined and case discussed with resident physicians. I have read the above note and agree with the assessment/plan as discussed with me. I was involved in all medical decision making for this patient. 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 Imaging: -Head CT: 3.5 x 3.6 cm low attenuation area in the right cerebellar hemisphere area most characteristic of edema which could be secondary to underlying mass or infarction. Second smaller focal peripheral area of decreased attenuation involving the right parietal occipital watershed region concerning for edema as well. Further evaluation with MRI recommended. -Brain MRI: Proximally 5cm infarct of the right cerebellar hemisphere with small punctate infarcts in the right occipital lobe and left parietal lobe. Remote lacunar infarcts of the right basal ganglia and cerebellum. -Head MRA: Patient within normal limits for age -Neck MRA: No significant stenosis in the carotid arteries. Left vertebral artery is dominant. -Neck CTA: Minimal calcific plaquing nonstenotic bilateral carotid bulbs and initial segment of the right internal carotid. -Patient to be transferred to the CICU for further monitoring due to his acute status change -PT/OT/ST consulted -Neuro checks every hour by nursing staff, contact M.D. with any acute changes to status -Neurology consulted -Normally patient to be anticoagulated, however there is a hemorrhagic signed component to the imaging -FEN held, continue baby aspirin -Neurosurgery consulted for possible acute decompensation requiring surgical intervention, appreciate recommendations (2) Respiratory distress ICD Codes: R06.03 - Acute respiratory distress Status: Acute Plan: --Course complicated by flash pulmonary edema no improved after aggressive diuresis and BiPaP. Pt now on 6L NC. -Repeat 2-D echo with Doppler ordered by vascular surgery, demonstrated EF of 55 -50, doppler parameters consistent with impaired left ventricular relation ( grade 1 diastolic dysfunction) (3) Constipation ICD Codes: K59.00 - Constipation, unspecified Status: Acute Plan: Patient with diffuse abdominal pain on exam likely related to constipation. Patient has not had a bowel movement in more than 7 days per chart review. -Patient placed on constipation protocol -Continue to monitor (4) Shortness of breath ICD Codes: R06.02 - Shortness of breath Status: Resolved Plan: Patient presented with a one-week history of progressive shortness of breath on exertion and at rest At baseline is able to ambulate long distances/perform all ADLs with no shortness of breath Not on home oxygen, requiring oxygen via nasal cannula during hospitalization Pulmonology consulted - appreciate recommendations Dr Chaparro plans to perform bedside PFT Continue Gilbert Previous workup: Chest x-ray on admission significant for bibasilar subsegmental atelectasis Afebrile on admission, blood cultures pending, lactic acid pending Rapid influenza negative BNP within normal limits Incentive spirometry ordered ACS workup on admission negative Trending troponins and EKGs D-dimer elevated on admission to 2.51, CTA negative for PE but did show 4.3 cm ascending thoracic aortic aneurysm (patient does not recall a history of this) Vascular surgery consultation for assessment/management recommendations Aortic ultrasound negative for AAA TSH to WNL at 2.56 (5) Superficial femoral artery occlusion ICD Codes: I70.209 - Unspecified atherosclerosis of [place] arteries of extremities, unspecified extremity Plan: Vascular surgery consulted - appreciate recommendations and intervention * CTA with runoff was performed which showed a clot in the left SFA * Patient status post left femoropopliteal bypass femoral endarterectomy popliteal endarterectomy and patch on 03/09 (6) Aorta aneurysm ICD Codes: I71.9 - Aortic aneurysm of unspecified site, without rupture Plan: Incidental finding on CTA of 4.3 cm ascending thoracic aortic aneurysm; history of this unknown to patient on admission Aortic ultrasound was ordered to screen for AAA and was negative Vascular surgery consulted - appreciate recommendations * Thoracic aneurysm aneurysm will be managed medically and with close follow-up for imaging (7) HTN (hypertension) ICD Codes: I10 - Essential (primary) hypertension Plan: History of hypertension - normotensive w/BP stable at 104/73 today Continue lisinopril 10 mg daily, metoprolol tartrate 50 mg PO BID With finding of thoracic aortic aneurysm, goal systolic blood pressure of less than 120 Vasotec 1.25 mg IV when necessary for systolic blood pressure greater than 160, diastolic blood pressure greater than 90 (8) CAD (coronary artery disease) ICD Codes: I25.10 - Atherosclerotic heart disease of [place] coronary artery without angina pectoris Plan: Patient with known CAD, status post coronary stents placed in 2007 Lipid profile normal ACS/further workup as described above Continue home atorvastatin 80 mg at night, ASA 81 mg daily (9) PAD (peripheral artery disease) ICD Codes: I73.9 - Peripheral vascular disease, unspecified Plan: Continuing home Effient 10 mg daily Further management by vascular surgery (10) BPH (benign prostatic hyperplasia) ICD Codes: N40.0 - Benign prostatic hyperplasia without lower urinary tract symptoms Plan: Continue home finasteride 5 mg by mouth daily (11) FEN Plan: Heart healthy diet Oral fluids only Replete electrolytes as needed Zofran as needed for nausea Tylenol as needed for fever Protonix for GI prophylaxis Lovenox 40 mg subcutaneous every 24 hours for DVT prophylaxis (Lv Ordaz MD R2) Problem Qualifiers (1) Constipation: Qualified Codes: K59.00 - Constipation, unspecified Lv Ordaz MD R2 Mar 14, 2017 15:29 Gary Rosado MD Mar 14, 2017 16:27
--- NOTE | 2017-03-14 20:40 | RADRPT ---
EXAM DATE/TIME: 03/14/2017 19:56 [facility] COMPARISON: CT BRAIN W/O CONTRAST, March 13, 2017, 15:58. MRI BRAIN W & W/O CONTRAST, March 13, 2017, 21:58 . INDICATIONS : CVA. Edema. MEDICAL HISTORY : Hypertension. Benign prostatic hyperplasia, (BPH) Gastroesophageal reflux disease. CAD. PAD. Erythroc ytosis. SURGICAL HISTORY : Cholecystectomy. Cardiac stents. Left fem-pop bypass. ENCOUNTER: Subsequent ACUITY: 2 day PAIN SCORE: 3/10 LOCATION: cranial TECHNIQUE: Multiplanar, multisequence MRI of the brain was performed without contrast. FINDINGS: There is no significant change in the appearance of the large acute infarction involving the right ce rebellum as well as the much smaller acute infarctions involving the right occipital lobe and left hi gh parietal cortex. Scattered periventricular and subcortical white matter small vessel ischemic heaton ges are noted bilaterally and are stable. Scattered old lacunar infarcts are noted throughout the sarahi ateral basal ganglia and bilateral cerebellar hemispheres. No midline shift is noted. Evidence of brittanie e hemorrhage within the right cerebellar infarct is noted. CONCLUSION: 1. No significant change in the appearance of large acute infarction involving the right cerebellum a s well as the much smaller acute infarctions involving the right occipital lobe and left high parieta l cortex. There is evidence of some hemorrhage within the right cerebellar infarct which is unchanged . 2. Scattered periventricular and subcortical white matter small vessel ischemic changes are noted sarahi aterally. 3. Old lacunar infarcts are noted within the bilateral basal ganglia and bilateral cerebellar hemisph eres. Shai Thrasher MD on March 14, 2017 at 20:32 Board Certified Radiologist. This report was verified electronically.
[2017-03-14] MEDS: ATORVASTATIN 80 MG TAB PO SCH (21:09)
[2017-03-14] MEDS: MONTELUKAST SODIUM 10 MG TAB PO SCH (21:09)
[2017-03-15] VITALS (19 sets, daily range): BP systolic 105–131; BP diastolic 67–81; PULSE 60–105; RESP 15–20; TEMP 96.4–98.6; O2SAT 92–99
[2017-03-15 04:55] LABS: AUTOMATED NEUTROPHIL # 11.5 TH/MM3 (1.8-7.7); BASOPHIL % 0.1 % (0.0-2.0); HEMATOCRIT 39.7 % (39.0-51.0); HEMOGLOBIN 13.4 GM/DL (13.0-17.0); LYMPH % 6.5 % (9.0-44.0); LYMPHOCYTE # 0.8 TH/MM3 (1.0-4.8); MEAN CELL VOLUME 85.2 FL (80.0-100.0); MEAN CORPUSCULAR HEMOGLOBIN 28.8 PG (27.0-34.0); MEAN CORPUSCULAR HGB CONC 33.8 % (32.0-36.0); MEAN PLATELET VOLUME 8.9 FL (7.0-11.0); MONO % 4.5 % (0.0-8.0); MONOCYTE # 0.6 TH/MM3 (0-0.9); NEUT % 88.9 % (16.0-70.0); PLATELET COUNT 203 TH/MM3 (150-450); RED BLOOD COUNT 4.65 MIL/MM3 (4.50-5.90); RED CELL DISTRIBUTION WIDTH 14.5 % (11.6-17.2)
[2017-03-15 05:11] LABS: BICARBONATE 26.3 MEQ/L (21.0-32.0); CREATININE 0.92 MG/DL (0.60-1.30)
[2017-03-15] MEDS: methylPREDNISolone SOD SUCC 40 MG/1 ML VIAL IV PUSH SCH ×3 (05:48→21:56)
--- NOTE | 2017-03-15 07:42 | HHI.PR ---
Subjective Remarks sr Objective Vital Signs Date Time Temp Pulse Resp B/P (MAP) Pulse Ox O2 Delivery O2 Flow Rate FiO2 03/15/17 06:00 66 03/15/17 04:00 98.4 60 15 117/71 (86) 95 03/15/17 04:00 60 03/15/17 03:45 97 40 03/15/17 02:00 66 03/15/17 00:00 69 03/15/17 00:00 98.6 69 15 106/67 (80) 94 03/14/17 23:25 96 40 03/14/17 23:00 92 Bi-Pap 40 03/14/17 22:00 76 03/14/17 21:00 98.6 79 19 123/71 (88) 96 03/14/17 20:29 92 Nasal Cannula 6.00 03/14/17 20:00 78 03/14/17 19:00 93 Nasal Cannula 4.00 Humidified 03/14/17 15:00 77 03/14/17 15:00 98.4 69 16 108/72 (84) 95 03/14/17 15:00 98 Nasal Cannula 6.00 03/14/17 13:28 95 Nasal Cannula 6.00 03/14/17 11:00 99 Nasal Cannula 6.00 03/14/17 11:00 99.0 79 16 122/76 (91) 97 03/14/17 11:00 75 I/O 03/14/17 03/14/17 03/14/17 03/15/17 03/15/17 03/15/17 07:00 15:00 23:00 07:00 15:00 23:00 Intake Total 240 ml 240 ml 240 ml Output Total 750 ml 725 ml 700 ml Balance -510 ml -485 ml -460 ml Intake Oral 240 ml 240 ml 240 ml Output Urine Total 750 ml 725 ml 700 ml # Bowel Movements 0 0 Result Diagram: 03/15/1743303/15/17433 Objective Remarks left eye still slight turn oin no diplopia must be old vff face sym 5/5 t/o awake alert x some difficulty getting lle up post up voice still soft pupil = Assessment and Plan Assessment and Plan imp bilat cva old left cbllr new r cbllr with some blood in it new r parietal and left parietal left vert dom and ? if origin stenosis check cta check holter normally i would coumadinze but there is a hemorrhagic sign component to the r cbllr infarct so will wait few weeks does he need to be on asa and effient or could he dc later with blood in cbllm preferred oob need to watch his neuro exam with the r cbllr infarct 03/15/17 overall stable watch lle for some weakness vs post op pain mri last pm stable and could go to floor tomorrow if stable asa 81 ok no other blodd thinners but ini future will do anticoagulation as o/p fu holter cta left vert origin nl Lupillo Chou MD Mar 15, 2017 07:42
[2017-03-15] MEDS: RESP: ALBUTEROL 2.5 MG/IPRATROPIUM 0.5 MG NEB (SCH) INH ×2 (08:00→12:42)
--- NOTE | 2017-03-15 08:33 | RADRPT ---
EXAM DATE/TIME: 03/15/2017 08:11 [facility] COMPARISON: CT BRAIN W/O CONTRAST, March 13, 2017, 15:58. INDICATIONS : Evaluate stroke RADIATION DOSE: 39.77 CTDIvol (mGy) MEDICAL HISTORY : Hypertension. Cerebrovascular disease. Myocardial infarction. SURGICAL HISTORY : Coronary artery stent. ENCOUNTER: Initial ACUITY: 1 day PAIN SCALE: 1/10 LOCATION: cranial TECHNIQUE: Multiple contiguous axial images were obtained of the head. Using automated exposure control and adj ustment of the mA and/or kV according to patient size, radiation dose was kept as low as reasonably a chievable to obtain optimal diagnostic quality images. DICOM format image data is available electro nically for review and comparison. FINDINGS: The area of low attenuation in the right cerebellum appears unchanged. There is some slight mass effe ct. The fourth ventricle remains patent. Small chronic infarct in the left cerebellum. Area of low-de nsity in the right parietal/occipital lobes is stable. No midline shift. Ventricles appear patent. No hemorrhage or extra-axial fluid collections. Calvarium is intact. CONCLUSION: 1. Stable CT of the brain including prominent area of low-density in the right cerebellum could be an acute/subacute infarct. This is unchanged. 2. Old appearing small infarcts in the right parietal/occipital lobe and left cerebellum are stable. Bradley Simmons MD on March 15, 2017 at 8:26 Board Certified Radiologist. This report was verified electronically.
[2017-03-15] MEDS: DOCUSATE SODIUM 50 MG/SENNA 8.6 MG TAB PO SCH ×2 (09:21→20:02)
[2017-03-15] MEDS: METOPROLOL TARTRATE 50 MG TAB PO SCH ×2 (09:21→21:00)
[2017-03-15] MEDS: GABAPENTIN 300 MG CAP PO SCH ×2 (09:21→20:02)
[2017-03-15] MEDS: ASPIRIN 81 MG CHEW TAB CHEW SCH (09:21)
[2017-03-15] MEDS: LISINOPRIL 10 MG TAB PO SCH (09:21)
[2017-03-15] MEDS: PANTOPRAZOLE SOD 40 MG DELAYED RELEASE TAB PO SCH (09:21)
[2017-03-15] MEDS: SODIUM CHLORIDE 0.9% FLUSH 10 ML FLUSH IV FLUSH SCH ×2 (09:22→20:03)
[2017-03-15] MEDS: MULTIVITAMIN TAB PO SCH (09:22)
[2017-03-15] MEDS: FINASTERIDE 5 MG TAB PO SCH (09:22)
[2017-03-15] MEDS: FLUTICASONE 200 MCG/VILANTEROL 25 MCG INHALER INH SCH (09:23)
--- NOTE | 2017-03-15 09:32 | HHI.NSPN ---
(Magalie Hoskins) Note Status Status: Progress Note (Magalie Hoskins) Interval History Interval History Mr. Gallagher is a very pleasant 76 year old male. History was mostly obtained from his at bedside due to his severe dysarthria. His reports the patient presented to the ED on 03/05/2017 initially for shortness of breath. 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 They are currently here on vacation for 2 months. Initially he was found to have elevated D-dimers but an angiography was negative for pulmonary embolism. He was evaluated by vascular surgeon Dr. Hernandez. He is being managed nonoperatively for thoracic aortic aneurysm. However underwent a fempop bypass surgery on 03/09/2017 due to an occlusion. The reports following surgery in recovery the patient was speaking well and normally. The following day she noted some dysarthria but attributed it to his current shortness of breath. He had an episode of acute hypoxia with respiratory distress and was monitored in CVICU. His reports his oxygenation improved however his dysarthria did not and he was worked up for possible CVA. He underwent an MRI brain which showed an acute right cerebellar ischemic infarction with punctate infarcts in the right occipital and left parietal lobes. No hydrocephalus. The patient does report positive headaches as well as possible increase drowsiness. However he remains and appear to be awake and alert. He denies focal weakness, extremity paresthesias, vision changes. Neurosurgical evaluation was requested. 03/15: remains severely dysarthric, but awake and alert overnight, no acute mental status changes. f/u CT Head this morning with stable right cerebellar infarction, fourth ventricle open, no signs of hydrocephalus. (Magalie Hoskins) Labs, Micro, & Vital Signs Results Date Time Temp Pulse Resp B/P (MAP) Pulse Ox O2 Delivery O2 Flow Rate FiO2 03/15/17 09:00 92 Nasal Cannula 6.00 03/15/17 06:00 66 03/15/17 04:00 98.4 60 15 117/71 (86) 95 03/15/17 04:00 60 1/31/18 03:45 97 40 03/15/17 02:00 66 03/15/17 00:00 69 03/15/17 00:00 98.6 69 15 106/67 (80) 94 03/14/17 23:25 96 40 03/14/17 23:00 92 Bi-Pap 40 03/14/17 22:00 76 03/14/17 21:00 98.6 79 19 123/71 (88) 96 03/14/17 20:29 92 Nasal Cannula 6.00 03/14/17 20:00 78 03/14/17 19:00 93 Nasal Cannula 4.00 Humidified 03/14/17 15:00 77 03/14/17 15:00 98.4 69 16 108/72 (84) 95 03/14/17 15:00 98 Nasal Cannula 6.00 03/14/17 13:28 95 Nasal Cannula 6.00 03/14/17 11:00 99 Nasal Cannula 6.00 03/14/17 11:00 99.0 79 16 122/76 (91) 97 03/14/17 11:00 75 Constitutional Vital Signs Date Time Temp Pulse Resp B/P (MAP) Pulse Ox O2 Delivery O2 Flow Rate FiO2 03/15/17 09:00 92 Nasal Cannula 6.00 03/15/17 06:00 66 03/15/17 04:00 98.4 60 15 117/71 (86) 95 03/15/17 04:00 60 03/15/17 03:45 97 40 03/15/17 02:00 66 03/15/17 00:00 69 03/15/17 00:00 98.6 69 15 106/67 (80) 94 03/14/17 23:25 96 40 03/14/17 23:00 92 Bi-Pap 40 03/14/17 22:00 76 03/14/17 21:00 98.6 79 19 123/71 (88) 96 03/14/17 20:29 92 Nasal Cannula 6.00 03/14/17 20:00 78 03/14/17 19:00 93 Nasal Cannula 4.00 Humidified 03/14/17 15:00 77 03/14/17 15:00 98.4 69 16 108/72 (84) 95 03/14/17 15:00 98 Nasal Cannula 6.00 03/14/17 13:28 95 Nasal Cannula 6.00 03/14/17 11:00 99 Nasal Cannula 6.00 03/14/17 11:00 99.0 79 16 122/76 (91) 97 03/14/17 11:00 75 (Magalie Hoskins) Review of Systems ROS Limitations: Speech Impaired (Magalie Hoskins) Physical Exam General: Mr. Gallagher is comfortable, in no obvious distress during examination. Neuro: Awake, alert. Speech is severely dysarthric. Can follow single and multi -step commands without apraxia. Cranial nerve examination: pupils to be equal, round, and reactive to light. Extra-ocular movements are intact with normal convergence. Facial motor and sensory function are normal and symmetrical. Tongue protruded midline. HENT: Normocephalic, atraumatic. Gross hearing intact bilaterally. Eyes: Pupils 4 mm equal round. Extra-ocular movement intact. Nonicteric sclera. Neck: soft, supple Extremities 5/5 in all muscle groups of both upper extremities including deltoid, biceps, triceps and sensor specialist. In the lower extremities exam limited to the recent surgery however he had gross proximal movement bilaterally, 4-5 distal lower extremity strength Sensory examination is intact light touch in both the upper and lower extremities Reflex: bilateral plantar flexion response. Cerebellar: mild dysmetria with right finger to nose, grossly intact left side Lungs: clear, nonlabored breathing, no wheezing Heart: S1, S2 Skin: warm and dry, no cyanosis. (Magalie Hoskins) Mr. Gallagher is comfortable, in no obvious distress during examination. Neuro: Awake, alert. Speech is severely dysarthric. Can follow single and multi -step commands without apraxia. Cranial nerve examination: pupils to be equal, round, and reactive to light. Extra-ocular movements are intact with normal convergence. Facial motor and sensory function are normal and symmetrical. Tongue protruded midline. HENT: Normocephalic, atraumatic. Gross hearing intact bilaterally. Eyes: Pupils 4 mm equal round. Extra-ocular movement intact. Nonicteric sclera. Neck: soft, supple Extremities 5/5 in all muscle groups of both upper extremities including deltoid, biceps, triceps and sensor specialist. In the lower extremities exam limited to the recent surgery however he had gross proximal movement bilaterally, 4-5 distal lower extremity strength Sensory examination is intact light touch in both the upper and lower extremities Reflex: bilateral plantar flexion response. Cerebellar: mild dysmetria with right finger to nose, grossly intact left side Lungs: clear, nonlabored breathing, no wheezing Heart: S1, S2 Skin: warm and dry, no cyanosis. (Inder Tucker MD) Medications Current Medications Current Medications Medications (Trade) Dose Ordered Sig/Lizbeth Route PRN Reason Start Time Stop Time Status Last Admin Dose Admin Sodium Chloride (NS Flush) 2 ml UNSCH PRN IV FLUSH FLUSH AFTER USING IV ACCESS 03/05/17 22:00 Sodium Chloride (NS Flush) 2 ml BID IV FLUSH 03/06/17 09:00 03/14/17 21:08 Aspirin (Aspirin Chew) 81 mg DAILY CHEW 03/06/17 09:00 03/14/17 08:47 Atorvastatin Calcium (Lipitor) 80 mg HS PO 03/05/17 22:15 03/14/17 21:09 Finasteride (Proscar) 5 mg DAILY PO 03/06/17 09:00 03/14/17 08:47 Fluticasone/ Vilanterol (Breo Ellipta 200-25 Inh) 1 puff DAILY INH 03/06/17 09:00 03/13/17 09:00 Gabapentin (Neurontin) 300 mg BID PO 03/05/17 22:15 03/14/17 21:09 Lisinopril (Prinivil) 10 mg DAILY PO 03/06/17 09:00 03/14/17 08:47 Polyethylene Glycol (Miralax) 17 gm DAILY PO 03/06/17 09:00 03/14/17 15:22 Prasugrel (Effient) 10 mg DAILY PO 03/06/17 09:00 Future Hold 03/12/17 08:51 Pantoprazole Sodium (Protonix) 40 mg DAILY PO 03/06/17 09:00 03/14/17 08:48 Multivitamins (Theragran) 1 tab DAILY PO 03/06/17 09:00 03/14/17 08:48 Albuterol Sulfate (Albuterol Neb) 2.5 mg Q4HR WHILE AWAKE NEB PRN NEB SHORTNESS OF BREATH 03/05/17 22:15 03/13/17 00:37 Ondansetron HCl (Zofran Inj) 4 mg Q6HR PRN IV PUSH NAUSEA OR VOMITING 03/05/17 22:15 03/10/17 10:46 Acetaminophen (Tylenol) 325 mg Q4H PRN PO FEVER 03/05/17 22:15 03/11/17 00:55 Metoprolol Tartrate (Lopressor) 50 mg Q12HR PO 03/06/17 10:00 03/14/17 21:08 Montelukast Sodium (Singulair) 10 mg HS PO 03/06/17 21:00 03/14/17 21:09 Methylprednisolone Sodium Succinate (SoluMEDROL INJ) 40 mg Q8HR IV PUSH 03/07/17 14:00 03/15/17 05:48 Morphine Sulfate (Morphine Inj) 4 mg Q3H PRN IV PUSH 6-10 03/09/17 16:30 03/13/17 09:57 Oxycodone/ Acetaminophen (Percocet 5-325 Mg) 1 tab Q4H PRN PO 3-5 03/09/17 16:30 03/11/17 20:27 Albuterol/ Ipratropium (Duoneb Neb) 1 ampule QID NEB INH 03/11/17 16:00 03/15/17 08:00 Senna/Docusate Sodium (Arleth-Colace) 1 tab BID PO 03/14/17 12:30 03/14/17 21:09 Magnesium Hydroxide (Milk Of Magnesia Liq) 30 ml Q12H PRN PO Mild constipation 03/14/17 12:30 03/14/17 15:23 Sennosides (Senokot) 17.2 mg Q12H PRN PO Moderate constipation 03/14/17 12:30 Bisacodyl (Dulcolax Supp) 10 mg DAILY PRN RECTAL SEVERE CONSITIPATION 03/14/17 12:30 Lactulose (Lactulose Liq) 30 ml DAILY PRN PO SEVERE CONSITIPATION 03/14/17 12:30 03/14/17 15:23 (Magalie Hoskins) Current Medications Current Medications Iohexol (Omnipaque 350 Inj) 70 ml STK-MED ONCE IVCONTRAST Last administered on 03/05/17at 20:00; Start 03/05/17 at 20:00; Stop 03/05/17 at 20:06; Status DC Nitroglycerin (Nitroglycerin 2% Oint) 1 inch ONCE ONCE TOPICAL Last administered on 03/05/17at 21:59; Start 03/05/17 at 21:00; Stop 03/05/17 at 21:01 ; Status DC Sodium Chloride (NS Flush) 2 ml UNSCH PRN IV FLUSH FLUSH AFTER USING IV ACCESS ; Start 03/05/17 at 22:00 Sodium Chloride (NS Flush) 2 ml BID IV FLUSH Last administered on 03/15/17 09: 22; Start 03/06/17 at 09:00 Aspirin (Aspirin Chew) 81 mg DAILY CHEW Last administered on 03/15/17 09:21; Start 03/06/17 at 09:00 Atorvastatin Calcium (Lipitor) 80 mg HS PO Last administered on 03/14/17 21:09 ; Start 03/05/17 at 22:15 Finasteride (Proscar) 5 mg DAILY PO Last administered on 03/15/17 09:22; Start 03/06/17 at 09:00 Fluticasone/ Vilanterol (Breo Ellipta 200-25 Inh) 1 puff DAILY INH Last administered on 03/15/17 09:23; Start 03/06/17 at 09:00 Gabapentin (Neurontin) 300 mg BID PO Last administered on 03/15/17 09:21; Start 03/05/17 at 22:15 Lisinopril (Prinivil) 10 mg DAILY PO Last administered on 03/15/17 09:21; Start 03/06/17 at 09:00 Metoprolol Tartrate (Lopressor) 150 mg DAILY PO ; Start 03/06/17 at 09:00; Stop 03/06/17 at 09:00; Status DC Polyethylene Glycol (Miralax) 17 gm DAILY PO Last administered on 03/14/17at 15: 22; Start 03/06/17 at 09:00 Prasugrel (Effient) 10 mg DAILY PO Last administered on 03/12/17 08:51; Start 03/06/17 at 09:00; Status Future Hold Pantoprazole Sodium (Protonix) 40 mg DAILY PO Last administered on 03/15/17 09 :21; Start 03/06/17 at 09:00 Multivitamins (Theragran) 1 tab DAILY PO Last administered on 1/31/18at 09:22; Start 03/06/17 at 09:00 Non-Formulary Medication 2 cap DAILY PO ; Start 03/06/17 at 09:00; Stop at 09:00; Status DC Albuterol Sulfate (Albuterol Neb) 2.5 mg Q4HR WHILE AWAKE NEB PRN NEB SHORTNESS OF BREATH Last administered on 03/13/17at 00:37; Start 03/05/17 at 22: 15 Albuterol/ Ipratropium (Duoneb Neb) 1 ampule Q4HR WHILE AWAKE NEB NEB Last administered on 03/06/17at 07:36; Start 03/06/17 at 08:00; Stop 03/06/17 at 09:30 ; Status DC Ondansetron HCl (Zofran Inj) 4 mg Q6HR PRN IV PUSH NAUSEA OR VOMITING Last administered on 03/10/17at 10:46; Start 03/05/17 at 22:15 Acetaminophen (Tylenol) 325 mg Q4H PRN PO FEVER Last administered on 03/11/17at 00:55; Start 03/05/17 at 22:15 Enalaprilat (Vasotec Inj) 1.25 mg Q6H PRN IV PUSH SBP>160, DBP>90; Start at 22:30; Stop 03/11/17 at 09:55; Status DC Metoprolol Tartrate (Lopressor) 50 mg Q12HR PO Last administered on 03/15/17at 09:21; Start 03/06/17 at 10:00 Montelukast Sodium (Singulair) 10 mg HS PO Last administered on 03/14/17at 21:09 ; Start 03/06/17 at 21:00 Prednisone (Deltasone) 40 mg DAILY PO Last administered on 03/07/17at 09:03; Start 03/06/17 at 09:00; Stop 03/07/17 at 09:30; Status DC Methylprednisolone Sodium Succinate (SoluMEDROL INJ) 40 mg Q8HR IV PUSH Last administered on 03/15/17at 14:34; Start 03/07/17 at 14:00 Iohexol (Omnipaque 350 Inj) 85 ml STK-MED ONCE IVCONTRAST Last administered on 03/07/17at 11:46; Start 03/07/17 at 11:46; Stop 03/07/17 at 11:47; Status DC Enoxaparin Sodium (Lovenox Inj) 40 mg Q24H SQ Last administered on 03/07/17at 15 :55; Start 03/07/17 at 15:00; Stop 03/11/17 at 11:12; Status DC Midazolam HCl (Versed Inj) 2 mg STK-MED ONCE .ROUTE Last administered on at 13:26; Start 03/08/17 at 13:26; Stop 03/08/17 at 13:27; Status DC Fentanyl Citrate (fentaNYL INJ) 100 mcg STK-MED ONCE .ROUTE Last administered on 03/08/17at 13:43; Start 03/08/17 at 13:43; Stop 03/08/17 at 13:44; Status DC Fentanyl Citrate (fentaNYL INJ) 100 mcg STK-MED ONCE .ROUTE Last administered on 03/08/17at 13:43; Start 03/08/17 at 13:43; Stop 03/08/17 at 13:44; Status DC Cefazolin Sodium/ Dextrose 50 ml @ As Directed STK-MED ONCE .ROUTE Last administered on 03/08/17at 14:48; Start 03/08/17 at 14:48; Stop 03/08/17 at 14:49 ; Status DC Midazolam HCl (Versed Inj) 2 mg STK-MED ONCE .ROUTE Last administered on at 14:20; Start 03/08/17 at 15:03; Stop 03/08/17 at 15:04; Status DC Iohexol (Omnipaque 350 Inj) 40 ml STK-MED ONCE OTHER Last administered on at 15:14; Start 03/08/17 at 15:14; Stop 03/08/17 at 15:15; Status DC Heparin Sodium (Porcine) (Heparin Inj) 10,000 units STK-MED ONCE .ROUTE Last administered on 03/09/17at 12:20; Start 03/09/17 at 09:15; Stop 03/09/17 at 09:16 ; Status DC Protamine Sulfate (Protamine Sulfate Inj) 50 mg STK-MED ONCE .ROUTE ; Start at 09:16; Stop 03/09/17 at 09:17; Status DC Lactated Ringer's 1,000 ml @ 30 mls/hr Q24H PRN IV SEE LABEL COMMENTS; Start at 11:15; Stop 03/12/17 at 11:14; Status DC Sodium Chloride 500 ml @ 30 mls/hr [id number] PRN IV SEE LABEL COMMENTS; Start at 11:15; Stop 03/12/17 at 11:14; Status DC Metoprolol Tartrate (Lopressor) 25 mg [employer] SALESPERSON PRN PO SEE LABEL COMMENTS; Start 03/09/17 at 11:15; Stop 03/12/17 at 11:14; Status DC Povidone Iodine (Betadine 5% Antisepsis Kit) 1 applic [employer]ESPERSON PRN EACH NARE SEE LABEL COMMENTS; Start 03/09/17 at 11:15; Stop 03/12/17 at 11:14; Status DC Chlorhexidine Gluconate (Chlorhexidine 2% Cloth) 3 pack [employer]ESPERSON PRN TOPICAL SEE LABEL COMMENTS; Start 03/09/17 at 11:15; Stop 03/12/17 at 11:14; Status DC Cefazolin Sodium (Ancef Inj) 2,000 mg ONCE ONCE IV Last administered on at 11:43; Start 03/09/17 at 12:16; Stop 03/09/17 at 12:54; Status DC Fentanyl Citrate (fentaNYL INJ) 500 mcg STK-MED ONCE .ROUTE ; Start 03/09/17 at 15:07; Stop 03/09/17 at 15:08; Status DC Morphine Sulfate (*morphine INJ PERIprocedure ONLY) 4 mg STK-MED ONCE .ROUTE Last administered on 03/09/17at 15:35; Start 03/09/17 at 15:35; Stop 03/09/17 at 15:36; Status DC Morphine Sulfate (*morphine INJ PERIprocedure ONLY) 4 mg STK-MED ONCE .ROUTE Last administered on 03/09/17at 15:59; Start 03/09/17 at 15:59; Stop 03/09/17 at 16:00; Status DC Morphine Sulfate (Morphine Inj) 4 mg Q3H PRN IV PUSH 6-10 Last administered on 03/13/17at 09:57; Start 03/09/17 at 16:30 Oxycodone/ Acetaminophen (Percocet 5-325 Mg) 1 tab Q4H PRN PO 3-5 Last administered on 03/11/17at 20:27; Start 03/09/17 at 16:30 Clopidogrel Bisulfate (Plavix) 75 mg DAILY PO ; Start 03/10/17 at 09:00; Stop at 09:00; Status DC Miscellaneous Information ALL NURSING DEPARTME... UNSCH PRN .XX SEE LABEL COMMENTS; Start 03/09/17 at 15:01; Stop 03/10/17 at 15:00; Status DC Sodium Chloride 1,000 ml @ 100 mls/hr Q10H IV Last administered on 03/11/17at 06:13; Start 03/10/17 at 11:00; Stop 03/11/17 at 09:55; Status DC Furosemide (Lasix Inj) 80 mg STK-MED ONCE .ROUTE ; Start 03/11/17 at 09:50; Stop 03/11/17 at 09:51; Status DC Furosemide (Lasix Inj) 80 mg ONCE ONCE IV PUSH Last administered on 03/11/17at 10:30; Start 03/11/17 at 10:30; Stop 03/11/17 at 10:31; Status DC Heparin Sodium/ Dextrose 250 ml @ 18 mls/hr TITRATE PRN IV Coagulation Management; Start 03/11/17 at 10:45; Stop 03/11/17 at 16:09; Status DC Albuterol/ Ipratropium (Duoneb Neb) 1 ampule QID NEB INH Last administered on 03/15/17at 12:42; Start 03/11/17 at 16:00 Enoxaparin Sodium (Lovenox Inj) 40 mg Q24H SQ Last administered on 03/13/17at 16 :35; Start 03/11/17 at 16:00; Stop 03/14/17 at 07:53; Status DC Furosemide (Lasix Inj) 80 mg ONCE ONCE IV PUSH Last administered on 03/11/17at 19:31; Start 03/11/17 at 18:45; Stop 03/11/17 at 18:46; Status DC Potassium Chloride (KCl) 40 meq ONCE ONCE PO Last administered on 03/11/17at 21 :00; Start 03/11/17 at 21:00; Stop 03/11/17 at 21:46; Status DC Potassium Chloride 100 ml @ 50 mls/hr BOLUS ONCE IV Last administered on 03/11at 22:00; Start 03/11/17 at 22:00; Stop 03/11/17 at 23:59; Status DC Furosemide (Lasix Inj) 80 mg ONCE ONCE IV PUSH Last administered on 03/12/17at 19:42; Start 03/12/17 at 18:45; Stop 03/12/17 at 18:46; Status DC Lactated Ringer's 2,000 ml @ As Directed STK-MED ONCE IV ; Start 03/09/17 at 12 :00; Stop 03/13/17 at 15:41; Status DC Lidocaine HCl (Xylocaine-Mpf 1% Inj) 5 ml STK-MED ONCE OTHER ; Start 03/09/17 at 12:00; Stop 03/13/17 at 15:41; Status DC Rocuronium [place] (Zemuron Inj) 50 mg STK-MED ONCE IV PUSH ; Start 03/09/17 at 12:00; Stop 03/13/17 at 15:41; Status DC Neostigmine Methylsulfate (Prostigmine Inj) 5 mg STK-MED ONCE IV PUSH ; Start at 12:00; Stop 03/13/17 at 15:41; Status DC Glycopyrrolate (Robinul Inj) 1 mg STK-MED ONCE IV PUSH ; Start 03/09/17 at 12:00 ; Stop 03/13/17 at 15:41; Status DC Dexamethasone Sodium Phosphate (Decadron Inj) 8 mg STK-MED ONCE IV Last administered on 03/09/17at 12:00; Start 03/09/17 at 12:00; Stop 03/13/17 at 15:41 ; Status DC Ondansetron HCl (Zofran Inj) 4 mg STK-MED ONCE IV PUSH ; Start 03/09/17 at 12:00 ; Stop 03/13/17 at 15:41; Status DC Propofol (Diprivan 200 Mg/20 ml Inj) 200 mg STK-MED ONCE IV ; Start 03/09/17 at 12:00; Stop 03/13/17 at 15:41; Status DC Melatonin (Melatonin) 5 mg ONCE ONCE PO Last administered on 03/13/17at 18:00; Start 03/13/17 at 18:00; Stop 03/13/17 at 18:01; Status DC Epinephrine HCl (EPINEPHrine (1:10,000) INJ) 1 mg STK-MED ONCE .ROUTE ; Start at 21:43; Stop 03/13/17 at 21:44; Status DC Atropine Sulfate (Atropine Inj) 1 mg STK-MED ONCE .ROUTE ; Start 03/13/17 at 21: 44; Stop 03/13/17 at 21:45; Status DC Gadodiamide (Omniscan Pf Inj) 20 ml STK-MED ONCE IV PUSH Last administered on at 22:50; Start 03/13/17 at 22:50; Stop 03/13/17 at 22:51; Status DC Iohexol (Omnipaque 350 Inj) 74 ml STK-MED ONCE IVCONTRAST Last administered on 03/14/17at 10:48; Start 03/14/17 at 10:48; Stop 03/14/17 at 10:49; Status DC Senna/Docusate Sodium (Arleth-Colace) 1 tab BID PO Last administered on at 09:21; Start 03/14/17 at 12:30 Magnesium Hydroxide (Milk Of Magnesia Liq) 30 ml Q12H PRN PO Mild constipation Last administered on 03/14/17at 15:23; Start 03/14/17 at 12:30 Sennosides (Senokot) 17.2 mg Q12H PRN PO Moderate constipation; Start 03/14/17 at 12:30 Bisacodyl (Dulcolax Supp) 10 mg DAILY PRN RECTAL SEVERE CONSITIPATION; Start at 12:30 Lactulose (Lactulose Liq) 30 ml DAILY PRN PO SEVERE CONSITIPATION Last administered on 03/14/17at 15:23; Start 03/14/17 at 12:30 (Inder Tucker MD) Medical Decision Making MDM Remarks 76 y/o male with acute right cerebellar infarct, and b/l punctate cerebral infarcts - ?cardioembolic event dysarthria (Magalie Hoskins) MDM Remarks Last [address] 03/15/17 0800 Signed Impressions: Service Date/Time: Wednesday, March 15, 2017 08:11 - CONCLUSION: 1. Stable CT of the brain including prominent area of low-density in the right cerebellum could be an acute/subacute infarct. This is unchanged. 2. Old appearing small infarcts in the right parietal/occipital lobe and left cerebellum are stable. Bradley Simmons MD Neck CTA 03/14/17 0000 Signed Impressions: Service Date/Time: Tuesday, March 14, 2017 10:44 - CONCLUSION: Minimal calcific plaquing nonstenotic bilateral carotid bulbs and initial segment of the right internal carotid. Lakhwinder Adams MD Brain MRI 03/14/17 0000 Signed Impressions: Service Date/Time: Tuesday, March 14, 2017 19:56 - CONCLUSION: 1. No significant change in the appearance of large acute infarction involving the right cerebellum as well as the much smaller acute infarctions involving the right occipital lobe and left high parietal cortex. There is evidence of some hemorrhage within the right cerebellar infarct which is unchanged. 2. Scattered periventricular and subcortical white matter small vessel ischemic changes are noted bilaterally. 3. Old lacunar infarcts are noted within the bilateral basal ganglia and bilateral cerebellar hemispheres. Shai Thrasher MD Neck Magnetic Resonance Angiography 03/13/[id number] Signed Impressions: Service Date/Time: Monday, March 13, 2017 21:58 - CONCLUSION: 1. No significant stenosis in the carotid arteries. Left vertebral artery is dominant. Adrián Caicedo MD Head Magnetic Resonance Angiography [id number]/13/[id number] Signed Impressions: Service Date/Time: Monday, March 13, 2017 21:58 - CONCLUSION: 1. Patient within normal limits for age. Adrián Caicedo MD Head CT 03/13/17 1447 Signed Impressions: Service Date/Time: Monday, March 13, 2017 15:58 - CONCLUSION: 1. 3.5 x 3.6 cm low attenuation area in the right cerebellar hemisphere area most characteristic of edema which could be secondary to underlying mass or infarction. 2. Second smaller focal peripheral area of decreased attenuation involving the right parietal-occipital watershed region concern for edema as well. 3. Further evaluation with MRI imaging with and without contrast is recommended. Damion Gibbons MD (Inder Tucker MD) Plan Plan Remarks f/u CT Head reviewed personally by Dr. Tucker, nonoperative mgt cont stroke therapy, Neurology following - defer stroke w/u close monitoring neuro status will follow (Magalie Hoskins) Attending Statement Cebellar4 infarction. I reviewed the follow up CT assessing for cardiac arrythmya with holter. I also recommend a transesophageal echocardiogram I recommend a hypercoagulable workup Neuro. Continue neuro checks in a serial fashion. Physical therapy and occupational therapy evaluation Pulmonary. Continue aggressive pulmonary toilette, nasotracheal suction, and breathing treatments with nebulizers. Daily PT and OT Nutrition. Tolerating Oral diet Renal. Continue to monitor closely urine output, BUN and creatinine Endocrine. Continue to Monitor serial Acu checks and SSI as needed in detail ID continue to monitor for signs of infection Continue Protonix for stress ulcer prophylaxis Continue Vijay hose and SCD's for DVT prophylaxis The exam, history, and the medical decision-making described in the above note were completed with the assistance of the mid-level provider. I reviewed and agree with the findings presented. I attest that I had a [id number] encounter with the patient on the same day, and personally performed and documented my assessment and findings in the medical record. (Inder Tucker MD) Magalie Hoskins Mar 15, 2017 09:32 Inder Tucker MD Mar 15, 2017 14:44
--- NOTE | 2017-03-15 09:51 | HHI.FPPN ---
Subjective Remarks No acute events overnight. Pt lying in bed, eating breakfast. On 6L NC. Patient endorses slight SOB, bud denies CP, abdominal pain, and N/V. Patient reports that he has not had a BM in 10 days, was put on constipation protocol yesterday. Nurse reports that patient hesitant to talk due to stroke and frustration. Team discussed and encourage patient to speak as often as he can in order to improve speech. Team also discussed with him concerning symptoms for depression post-stroke. Patient denies depressive symptoms. (Kalyani Loaiza MD R1) Objective Vitals Vital Signs Date Time Temp Pulse Resp B/P (MAP) Pulse Ox O2 Delivery O2 Flow Rate FiO2 03/15/17 09:00 92 Nasal Cannula 6.00 03/15/17 07:15 95 Bi-Pap 4.00 40 03/15/17 06:00 66 03/15/17 04:00 98.4 60 15 117/71 (86) 95 03/15/17 04:00 60 03/15/17 03:45 97 40 03/15/17 02:00 66 03/15/17 00:00 69 03/15/17 00:00 98.6 69 15 106/67 (80) 94 03/14/17 23:25 96 40 03/14/17 23:00 92 Bi-Pap 40 03/14/17 22:00 76 03/14/17 21:00 98.6 79 19 123/71 (88) 96 03/14/17 20:29 92 Nasal Cannula 6.00 03/14/17 20:00 78 03/14/17 19:00 93 Nasal Cannula 4.00 Humidified 03/14/17 15:00 77 03/14/17 15:00 98.4 69 16 108/72 (84) 95 03/14/17 15:00 98 Nasal Cannula 6.00 03/14/17 13:28 95 Nasal Cannula 6.00 03/14/17 11:00 99 Nasal Cannula 6.00 03/14/17 11:00 99.0 79 16 122/76 (91) 97 03/14/17 11:00 75 I/O 03/14/17 03/14/17 03/14/17 03/15/17 03/15/17 03/15/17 06:59 14:59 22:59 06:59 14:59 22:59 Intake Total 240 ml 240 ml 240 ml Output Total 750 ml 725 ml 700 ml Balance -510 ml -485 ml -460 ml Intake Oral 240 ml 240 ml 240 ml Output Urine Total 750 ml 725 ml 700 ml # Bowel Movements 0 0 (Kalyani Loaiza MD R1) Result Diagram: 03/15/1743303/15/17433 Objective Remarks GENERAL: Elderly gentleman lying in bed, eating breakfast, in no acute distress PSYCHIATRIC: Less talkative due to frustration HEENT: Atraumatic, normocephalic with EOMI. No rhinorrhea. MMM. No visible LAD or JVD appreciated. RESPIRATORY: Clear to auscultation bilaterally with no CRW appreciated anteriorly. Poor overall air movement. Patient currently on 6 L nasal cannula. CARDIOVASCULAR: RRR, no m/r/g. Radial and DP pulses 2+ and symmetric bilaterally. Brisk capillary refill. ABDOMEN: Soft, nondistended with positive bowel sounds. Patient tender to mild palpation in all 4 quadrants. No masses appreciated. MUSCULOSKELETAL: No calf tenderness. No edema appreciated. Femoropopliteal bypass incision sites, CDI bandages. SKIN: Essentially clear with no significant rash or lesions. Adequate skin turgor. : catheter in place NEUROLOGICAL: Speech- Voice is hoarse with some in comprehensible words. Patient has intermittent word finding. Decreased interaction and exam compared to prior encounters. Cranial nerves- 2 through 12 intact. Motor/sensory/reflexes- Face- No facial droop. No tongue deviation. RUE- 5/5 strength in all musc groups, sensation intact. LUE- 5/5 strength in all musc groups, sensation intact. RLE- 5/5 strength in all musc groups, sensation intact. LLE- 5/5 strength in all musc groups, sensation intact. Procedures tPA therapy for thrombolysis of left SFA 03/08-03/09 (Kalyani Loaiza MD R1) A/P Assessment and Plan Patient is a 76-year-old male with a history of CAD, hypertension, GERD and PAD with blood clots that presented to the ED with a one-week history of progressive shortness of breath following 2 episodes of dizziness. Initial ACS rule out negative. Patient was found to have elevated d-dimer on admission and CTA was performed which was negative for pulmonary embolism, but did show incidental finding of 4.3 cm descending thoracic aortic aneurysm. Chest x-ray was also significant for bibasilar subsegmental atelectasis. He was initially admitted for 24-hour observation and further workup, but due to slow improvement in symptoms, he was admitted for management of his shortness of breath. Pulmonary was been consulted; will perform PFTs when more stable. Vascular surgery was consulted for aortic arch aneurysm which only requires close follow-up with imaging for now; however his CTA with runoff was performed that showed occlusion in left SFA that was determined to be a fibrotic clots not amenable to TPA therapy. Patient underwent a Fempop bypass surgery on 2017 due to an occlusion. 03/11: pt became acutely hypoxic with respiratory distress and was transferred to the CVICU on BiPAP. Pt given Lasix 80mg x1 for fluid overload to resolve respiratory distress. 03/12: NAEON. Taken off BiPAP onto partial rebreather, then to 6L NC. 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 Pulmonary consulted and awaiting PFTs; however, likely will be deferred until pt stabilizes more. 03/13: POD #4 s/p left femoropopliteal bypass. Patient stable for transfer back to floor, currently on 6L NC, will receive BiPaP at night. Class II pulmonary hypertension from diastolic dysfunction. No other causes of dyspnea. Patient may need cardiac evaluation including possible left and right heart cath, may have significant component of WHO. Critical care signing off. 03/14: Patient presented with speech difficulty. Stat CT head with right cerebellar infarction. Brain MRI demonstrated some hemorrhage with the right cerebellar infarct. Patient transferred to surgical ICU. Neurology and Neurosurgery consulted. 03/15: Repeat heat CT demonstrated stable right cerebellar infarction, fourth ventricle open, no signs of hydrocephalus. Nonoperative mgt per neurosurgery. Discharge Planning Pending clinical improvement Unclear timetable Will need PT at rehab (Kalyani Loaiza MD R1) Attending Attestation Pt. examined and case discussed with resident physicians. I have read the above note and agree with the assessment and plan as discussed with me. I was involved in all medical decision making for this patient. 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 -Neurology consulted, recs appreciated -Normally patient to be anticoagulated, however there is a hemorrhagic signed component to the imaging -FEN held, continue baby aspirin -Neurosurgery consulted for possible acute decompensation requiring surgical intervention, recs appreciated -CT head reviewed, nonoperative mgt -Cont. stroke therapy -Hypercoagulable workup in process due to multiple infarcts (Protein C, S, Antiphospholipid, Factor V Leiden, Antithrombin) -Recommend transesophageal echocardiogram for cardiac arrhythmia -PT/OT/ST consulted -Neuro checks every hour by nursing staff, contact M.D. with any acute changes to status -Screened for depression, pt denies symptoms Imaging: -Head CT: 3.5 x 3.6 cm low attenuation area in the right cerebellar hemisphere area most characteristic of edema which could be secondary to underlying mass or infarction. Second smaller focal peripheral area of decreased attenuation involving the right parietal occipital watershed region concerning for edema as well. Further evaluation with MRI recommended. -Brain MRI: Proximally 5cm infarct of the right cerebellar hemisphere with small punctate infarcts in the right occipital lobe and left parietal lobe. Remote lacunar infarcts of the right basal ganglia and cerebellum. -Head MRA: Patient within normal limits for age -Neck MRA: No significant stenosis in the carotid arteries. Left vertebral artery is dominant. -Neck CTA: Minimal calcific plaquing nonstenotic bilateral carotid bulbs and initial segment of the right internal carotid. -Repeat Brain MRI: no significant change in the appearance of large acute infarction involving the right cerebellum as well as the much smaller acute infarctions involving the right occipital lobe and left high parietal cortex. -Repeat head CT: Stable right cerebellar infarction, fourth ventricle open, no signs of hydrocephalus (2) Respiratory distress ICD Codes: R06.03 - Acute respiratory distress Status: Acute Plan: -Course complicated by flash pulmonary edema no improved after aggressive diuresis and BiPaP. Pt now on 6L NC. -Repeat 2-D echo with Doppler ordered by vascular surgery, demonstrated EF of 55 -50, doppler parameters consistent with impaired left ventricular relation ( grade 1 diastolic dysfunction) (3) Constipation ICD Codes: K59.00 - Constipation, unspecified Status: Acute Plan: Patient with diffuse abdominal pain on exam likely related to constipation. Patient has not had a bowel movement in 6 days per chart review. -Patient placed on constipation protocol -Continue to monitor -Will consider Enema (4) Shortness of breath ICD Codes: R06.02 - Shortness of breath Status: Resolved Plan: Patient presented with a one-week history of progressive shortness of breath on exertion and at rest At baseline is able to ambulate long distances/perform all ADLs with no shortness of breath Not on home oxygen, requiring oxygen via nasal cannula during hospitalization Pulmonology consulted - appreciate recommendations Dr Chaparro plans to perform bedside PFTs when clinically improved Continue Gilbert Previous workup: Chest x-ray on admission significant for bibasilar subsegmental atelectasis Afebrile on admission, blood cultures pending, lactic acid pending Rapid influenza negative BNP within normal limits Incentive spirometry ordered ACS workup on admission negative Trending troponins and EKGs D-dimer elevated on admission to 2.51, CTA negative for PE but did show 4.3 cm ascending thoracic aortic aneurysm (patient does not recall a history of this) Vascular surgery consultation for assessment/management recommendations Aortic ultrasound negative for AAA TSH to WNL at 2.56 (5) Superficial femoral artery occlusion ICD Codes: I70.209 - Unspecified atherosclerosis of [place] arteries of extremities, unspecified extremity Plan: Vascular surgery consulted - appreciate recommendations and intervention * CTA with runoff was performed which showed a clot in the left SFA * Patient status post left femoropopliteal bypass femoral endarterectomy popliteal endarterectomy and patch on 03/09 (6) Aorta aneurysm ICD Codes: I71.9 - Aortic aneurysm of unspecified site, without rupture Plan: Incidental finding on CTA of 4.3 cm ascending thoracic aortic aneurysm; history of this unknown to patient on admission Aortic ultrasound was ordered to screen for AAA and was negative Vascular surgery consulted - appreciate recommendations * Thoracic aneurysm aneurysm will be managed medically and with close follow-up for imaging (7) HTN (hypertension) ICD Codes: I10 - Essential (primary) hypertension Plan: History of hypertension - normotensive w/BP stable Continue lisinopril 10 mg daily, metoprolol tartrate 50 mg PO BID With finding of thoracic aortic aneurysm, goal systolic blood pressure of less than 120 Vasotec 1.25 mg IV when necessary for systolic blood pressure greater than 160, diastolic blood pressure greater than 90 (8) CAD (coronary artery disease) ICD Codes: I25.10 - Atherosclerotic heart disease of [place] coronary artery without angina pectoris Plan: Patient with known CAD, status post coronary stents placed in 2007 Lipid profile normal Continue home atorvastatin 80 mg at night, ASA 81 mg daily (9) PAD (peripheral artery disease) ICD Codes: I73.9 - Peripheral vascular disease, unspecified Plan: Continuing home Effient 10 mg daily Further management by vascular surgery (10) BPH (benign prostatic hyperplasia) ICD Codes: N40.0 - Benign prostatic hyperplasia without lower urinary tract symptoms Plan: Continue home finasteride 5 mg by mouth daily (11) FEN Plan: Heart healthy diet Oral fluids only Replete electrolytes as needed Zofran as needed for nausea Tylenol as needed for fever Protonix for GI prophylaxis (Kalyani Loaiza MD R1) Problem Qualifiers (1) Constipation: Qualified Codes: K59.00 - Constipation, unspecified Kalyani Loaiza MD R1 Mar 15, 2017 09:51 Gary Rosado MD Mar 15, 2017 21:01
--- NOTE | 2017-03-15 11:40 | PD.CAR.PN ---
CVT Progress Note Subjective/Hospital Course: I reviewed the patient's CTA Patient has good flow on the right and vessels are fairly clean but on the left side patient has sudden occlusion of the SFA at the level of the groin and this extends all the way down through the adductor canal to the popliteal artery In face of the ID's of the vessels which appeared to be fairly clean I believe this is a clot Discussed this at length with Dr. Morgan Nelson Suggest patient undergo TPA lysis and if that is not successful he can always have surgical thromboembolectomy Will refer for tPA lysis tomorrow 03/08/17 Patient was scheduled today to undergo TPA lysis of the left leg clot Once the catheter was inserted its noted that this clot is to take into fibrous to remove and at this point the only option is femoropopliteal bypass Patient does have ischemia to the left leg but no limb threatening changes and reconstituted the blood flow at the popliteal level I'll give an option to have the femoropopliteal bypasses done here or at home [place]. Either option is acceptable as long as its timely 03/10/17 Patient is status post left femoropopliteal bypass femoral endarterectomy popliteal endarterectomy and patch Patient has bounding femoral-popliteal dissolves pedis and posterior tibial pulses Foot is warm graft is widely patent Unfortunately Rodriguez catheter was removed yesterday and patient urinated on his incision throughout the night. I found him in bed with the urine covered wet sheets this a.m. Patient appears to be slightly under hydrated considering that IV was not running through the night Patient did not receive dinner because he was nauseous but didn't receive breakfast either so I ordered breakfast Out of bed today with assistance Change dressings Transferred to surgical floor 03/11/17 Incision clean and dry. Excellent distal pulses Strong dopplerable and even palpable dorsalis pedis and dopplerable posterior tibial Strong signal dopplerable popliteal and the graft Foot nice and warm well perfused with normal capillary refill This morning patient apparently developed respiratory distress with hypotension. Patient was emergently transferred to CVICU Now patient is good bilateral breath sounds and is on 60% FiO2 BiPAP mask This certainly looks most like a fluid overload and mobilization of the third space, rather than pulmonary embolism As far as the d-dimer goes, positive d-dimer which is usually vascular higher than 200 ng/mL may indicate pulmonary embolism but this also seen in patients with a cardiac failure, syncope, trauma etc. On the other hand low d-dimer reliably excludes pulmonary embolism. In this particular patient d-dimer a 16 ng/mL which is clearly negative value as far as pulmonary embolism is concerned and I don't see any value in further studying this line. Agree with diuresis and pulmonary support When all said and done patient will likely need to rehabilitation and family would like to keep him at [place] 03/12/17 Doing much better. Foot warm. Excellent distal pulses and graft flow is brisk. Incisions clean dry. Bilat BS, resp distress resolved. Great work by Dr Perez 03/14/17 I was called by medical residents today stating that yesterday patient started slurring speech which since somewhat resolved. He has multiple bilateral cerebral infarcts cause of which is somewhat elusive considering the fact that patient's cardiac echo was pretty much normal preop Of course posterior circulation infarcts in general are in part caused by vertebral artery stenoses. This on the other hand looks more like an embolic event the repeated episodes over period of time. Some areas appear more acute than others Carotid ultrasound was normal without any areas of increased velocity. Carotid CTA and MRA of the neck both confirm minimal carotid disease and dominant left vertebral artery. Today patient is doing better he doesn't seem to be slurring speech however he is somewhat short of breath and hoarse Motoric the patient is fully intact and this morning both legs have equal strength As far as the leg is concerned he is excellent distal flow graft is widely patent From my point patient doesn't need to be on platelet inhibitors and a baby aspirin a day is okay but not mandatory Continue to follow nothing to add to care right now 03/15/17 Patient status post revascularization of the left leg Patient has palpable femoral pulse and bounding pulses by Doppler distally Incisions are clean and foot is warm As above noted patient suffered repeated strokes in the past and some acute changes are noted on MRI in the right cerebellar and occipital region Patient is awake alert and oriented and dysarthria has disappeared He still seems to be very short of breath and somewhat fluid overloaded Sitting out of bed able to walk with a walker No lateralization Nothing to add to care from vascular point at this time Objective: Vital Signs Date Time Temp Pulse Resp B/P (MAP) Pulse Ox O2 Delivery O2 Flow Rate FiO2 03/15/17 10:00 88 03/15/17 09:00 92 Nasal Cannula 6.00 03/15/17 08:00 97.8 60 18 131/80 (97) 94 03/15/17 08:00 60 03/15/17 07:15 95 Bi-Pap 4.00 40 03/15/17 06:00 66 03/15/17 04:00 98.4 60 15 117/71 (86) 95 03/15/17 04:00 60 03/15/17 03:45 97 40 03/15/17 02:00 66 03/15/17 00:00 69 03/15/17 00:00 98.6 69 15 106/67 (80) 94 03/14/17 23:25 96 40 03/14/17 23:00 92 Bi-Pap 40 03/14/17 22:00 76 03/14/17 21:00 98.6 79 19 123/71 (88) 96 03/14/17 20:29 92 Nasal Cannula 6.00 03/14/17 20:00 78 03/14/17 19:00 93 Nasal Cannula 4.00 Humidified 03/14/17 15:00 77 03/14/17 15:00 98.4 69 16 108/72 (84) 95 03/14/17 15:00 98 Nasal Cannula 6.00 03/14/17 13:28 95 Nasal Cannula 6.00 Labs: Laboratory Tests Test 03/15/17 04:34 White Blood Count 13.0 TH/MM3 (4.0-11.0) Red Blood Count 4.65 MIL/MM3 (4.50-5.90) Hemoglobin 13.4 GM/DL (13.0-17.0) Hematocrit 39.7 % (39.0-51.0) Mean Corpuscular Volume 85.2 FL (80.0-100.0) Mean Corpuscular Hemoglobin 28.8 PG (27.0-34.0) Mean Corpuscular Hemoglobin Concent 33.8 % (32.0-36.0) Red Cell Distribution Width 14.5 % (11.6-17.2) Platelet Count 203 TH/MM3 (150-450) Mean Platelet Volume 8.9 FL (7.0-11.0) Neutrophils (%) (Auto) 88.9 % (16.0-70.0) Lymphocytes (%) (Auto) 6.5 % (9.0-44.0) Monocytes (%) (Auto) 4.5 % (0.0-8.0) Eosinophils (%) (Auto) 0.0 % (0.0-4.0) Basophils (%) (Auto) 0.1 % (0.0-2.0) Neutrophils # (Auto) 11.5 TH/MM3 (1.8-7.7) Lymphocytes # (Auto) 0.8 TH/MM3 (1.0-4.8) Monocytes # (Auto) 0.6 TH/MM3 (0-0.9) Eosinophils # (Auto) 0.0 TH/MM3 (0-0.4) Basophils # (Auto) 0.0 TH/MM3 (0-0.2) CBC Comment DIFF FINAL Differential Comment Blood Urea Nitrogen 39 MG/DL (7-18) Creatinine 0.92 MG/DL (0.60-1.30) Random Glucose 125 MG/DL (74-106) Calcium Level 8.0 MG/DL (8.5-10.1) Sodium Level 139 MEQ/L (136-145) Potassium Level 4.5 MEQ/L (3.5-5.1) Chloride Level 105 MEQ/L (98-107) Carbon Dioxide Level 26.3 MEQ/L (21.0-32.0) Anion Gap 8 MEQ/L (5-15) Estimat Glomerular Filtration Rate 80 ML/MIN (>89) Result Diagram: 03/15/17 0434 03/15/17 0434 Calin Hernandez MD Mar 15, 2017 11:40
--- NOTE | 2017-03-15 17:05 | MB ---
cc: KULDEEP CARMEN M.D. DATE OF CONSULTATION 03/15/2017 REASON FOR CONSULTATION Transesophageal echocardiography. HISTORY OF PRESENT ILLNESS The patient is a 76-year-old white male with a history of COPD, coronary artery disease status post two or three stents placed several years ago in [place], hypertension, peripheral vascular disease, status post left femoral-popliteal bypass 03/09/2017, history of CVAs most recently this week who is now referred for transesophageal echocardiography to rule out a cardiac source of embolism. The patient has been in sinus rhythm on monitoring here in the hospital. He denies palpitations, syncope, near-syncope, chest pain, change in chronic mild to moderate dyspnea, pedal edema, paroxysmal nocturnal dyspnea. MRI of the head does show evidence for bilateral CVAs. The patient actually presented initially with some dyspnea and lightheadedness with a particularly severe episode of lightheadedness about 10 days prior to admission causing him to fall to his knees for a few minutes. PAST MEDICAL HISTORY 1. COPD. 2. Coronary artery disease status post coronary stenting at least twice in 2007 in [place]. 3. Hypertension. 4. Peripheral vascular disease with CT angiography revealing total occlusion of the distal left superficial femoral artery to the [id number] region of the popliteal artery. He is now status post left femoral-popliteal bypass 03/09/2017. 5. Chronic erythrocytosis status post occasional phlebotomy. 6. Gastroesophageal reflux disease. 7. History of CVAs with recent MRI showing a large acute right cerebellar CVA with some hemorrhage, and smaller right occipital and left parietal CVAs. PAST SURGICAL HISTORY 1. Cholecystectomy. 2. Lumbar laminectomy. MEDICATIONS His current cardiac medications: 1. Metoprolol 50 mg p.o. q.12h. 2. Aspirin 81 mg p.o. daily. 3. Lisinopril 10 mg p.o. daily. 4. Atorvastatin 80 mg p.o. q.h.s. At home he was also taking Effient 10 mg p.o. daily. ALLERGIES NO KNOWN DRUG ALLERGIES. HE HAS A NUMBER OF FOOD PRODUCT ALLERGIES. FAMILY HISTORY Noncontributory. SOCIAL HISTORY The patient is a nonsmoker. There is no history of alcohol abuse. REVIEW OF SYSTEMS As in the history of present illness otherwise negative or noncontributory. He also denies headache, abdominal pain, melena, dyspepsia, bright red blood per rectum, wheezing, cough. PHYSICAL EXAMINATION VITAL SIGNS: On physical examination his blood pressure 125/80 with a pulse of 90, respirations 20. GENERAL: In general he is a well-developed, well-nourished white male in no acute distress HEAD, EYES, EARS, NOSE, AND THROAT: Jugular venous pressure is normal. Carotid pulses are 2+ bilaterally and without bruits. CHEST: Examination of the chest reveals clear lung [place] anteriorly. CARDIOVASCULAR: On cardiac examination he has a regular rhythm and rate without S3-S4 or murmur. ABDOMEN: On abdominal examination he has a soft, nontender abdomen. Bowel sounds are present. There is no definite hepatosplenomegaly. EXTREMITIES: Examination of extremities reveals no clubbing or cyanosis. There is no definite pedal edema. EKG from 03/11/2017 shows sinus tachycardia, nonspecific T-wave abnormalities. LABORATORY DATA Includes WBC 13.0, hemoglobin 13.4, platelets 203. Potassium 4.5, BUN 39, creatinine 0.92. Negative cardiac enzymes. INR 1.1. IMAGING Chest x-ray from 03/13/2017 shows no acute disease. IMPRESSION Overall stable cardiac status in this 76-year-old white male with a history of possible asthma, coronary artery disease status post coronary stenting several years ago in [place], hypertension, peripheral vascular disease status post recent left femoral-popliteal bypass, history of multiple CVAs demonstrated bilaterally by MRI. I have been asked to see the patient for transesophageal echocardiography to rule out a cardiac source of embolism. Indeed he had bilateral CVAs by MRI. Hypercoagulable state workup is currently pending. On monitoring here in hospital he has demonstrated no definite atrial fibrillation. Transthoracic echocardiography apparently was unrevealing. At this point I would agree with the need for a transesophageal echo. The nature of this procedure and potential risks have been outlined. He agrees to proceed. RECOMMENDATIONS 1. Transesophageal echocardiography tomorrow if there is room on the echo schedule. 2. Continue the beta-anibal, JENNIFER inhibitor, aspirin for his history of coronary artery disease. From my standpoint he does not need to be maintained on Effient, and he also apparently has some hemorrhage on his MRI due to the cerebellar CVA. MD MARZENA Saucedo/KK /3:45 PM /4:33 PM [id number]
[2017-03-15] MEDS: ATORVASTATIN 80 MG TAB PO SCH (20:02)
[2017-03-15] MEDS: MONTELUKAST SODIUM 10 MG TAB PO SCH (20:02)
[2017-03-16] VITALS (16 sets, daily range): BP systolic 98–128; BP diastolic 59–83; PULSE 56–83; RESP 16–22; TEMP 97.3–98.5; O2SAT 92–98
[2017-03-16] MEDS: methylPREDNISolone SOD SUCC 40 MG/1 ML VIAL IV PUSH SCH ×3 (06:00→22:00)
[2017-03-16 07:33] LABS: HEMATOCRIT 41.4 % (39.0-51.0); HEMOGLOBIN 13.8 GM/DL (13.0-17.0); MEAN CELL VOLUME 86.1 FL (80.0-100.0); MEAN CORPUSCULAR HEMOGLOBIN 28.7 PG (27.0-34.0); MEAN CORPUSCULAR HGB CONC 33.3 % (32.0-36.0); MEAN PLATELET VOLUME 8.7 FL (7.0-11.0); PLATELET COUNT 185 TH/MM3 (150-450); RED BLOOD COUNT 4.81 MIL/MM3 (4.50-5.90); RED CELL DISTRIBUTION WIDTH 14.6 % (11.6-17.2); WHITE BLOOD COUNT 14.5 TH/MM3 (4.0-11.0)
[2017-03-16 08:04] LABS: BICARBONATE 24.9 MEQ/L (21.0-32.0); CALCIUM 8.1 MG/DL (8.5-10.1); CREATININE 0.86 MG/DL (0.60-1.30)
--- NOTE | 2017-03-16 08:07 | HHI.PR ---
Review/Management Diagnosis/Plan: (1) Cerebral infarction due to unspecified occlusion or stenosis of right cerebellar artery ICD Codes: I63.541 - Cerebral infarction due to unspecified occlusion or stenosis of right cerebellar artery Status: Acute Plan: rt moderate infarct with minimal ich 03/15 ct brain reviewed- stable recs ok for floor with tele possible chad; appreciate cardiology watch bp continue aspirin therapy will likely need rehab (2) HTN (hypertension) ICD Codes: I10 - Essential (primary) hypertension Status: Chronic (3) CAD (coronary artery disease) ICD Codes: I25.10 - Atherosclerotic heart disease of [place] coronary artery without angina pectoris Status: Chronic Subjective Subjective Comments xcover No acute events reported No headache No chest pain No dyspnea Active Medications Current Medications Medications (Trade) Dose Ordered Sig/Lizbeth Route Start Time Stop Time Status Last Admin (NS Flush) 2 ml UNSCH PRN IV FLUSH 03/05/17 22:00 (NS Flush) 2 ml BID IV FLUSH 03/06/17 09:00 03/15/17 20:03 (Aspirin Chew) 81 mg DAILY CHEW 03/06/17 09:00 03/15/17 09:21 (Lipitor) 80 mg HS PO 03/05/17 22:15 03/15/17 20:02 (Proscar) 5 mg DAILY PO 03/06/17 09:00 03/15/17 09:22 (Breo Ellipta 200-25 Inh) 1 puff DAILY INH 03/06/17 09:00 03/15/17 09:23 (Neurontin) 300 mg BID PO 03/05/17 22:15 03/15/17 20:02 (Prinivil) 10 mg DAILY PO 03/06/17 09:00 03/15/17 09:21 (Miralax) 17 gm DAILY PO 03/06/17 09:00 03/14/17 15:22 (Effient) 10 mg DAILY PO 03/06/17 09:00 Future Hold 03/12/17 08:51 (Protonix) 40 mg DAILY PO 03/06/17 09:00 03/15/17 09:21 (Theragran) 1 tab DAILY PO 03/06/17 09:00 03/15/17 09:22 (Albuterol Neb) 2.5 mg Q4HR WHILE AWAKE NEB PRN NEB 03/05/17 22:15 03/13/17 00:37 (Zofran Inj) 4 mg Q6HR PRN IV PUSH 03/05/17 22:15 03/10/17 10:46 (Tylenol) 325 mg Q4H PRN PO 03/05/17 22:15 03/11/17 00:55 (Lopressor) 50 mg Q12HR PO 03/06/17 10:00 03/15/17 09:21 (Singulair) 10 mg HS PO 03/06/17 21:00 03/15/17 20:02 (SoluMEDROL INJ) 40 mg Q8HR IV PUSH 03/07/17 14:00 03/16/17 06:00 (Morphine Inj) 4 mg Q3H PRN IV PUSH 03/09/17 16:30 03/13/17 09:57 (Percocet 5-325 Mg) 1 tab Q4H PRN PO 03/09/17 16:30 03/11/17 20:27 (Arleth-Colace) 1 tab BID PO 03/14/17 12:30 03/15/17 20:02 (Milk Of Magnesia Liq) 30 ml Q12H PRN PO 03/14/17 12:30 03/14/17 15:23 (Senokot) 17.2 mg Q12H PRN PO 03/14/17 12:30 (Dulcolax Supp) 10 mg DAILY PRN RECTAL 03/14/17 12:30 (Lactulose Liq) 30 ml DAILY PRN PO 03/14/17 12:30 03/14/17 15:23 Allergies Allergies Coded Allergies chocolate flavor (Verified Allergy, Unknown, 03/05/17) milk (Verified Allergy, Unknown, 03/05/17) orange juice (Verified Allergy, Unknown, 03/05/17) peanut (Verified Allergy, Unknown, 03/05/17) Uncoded Allergies granulated sugar ( Allergy, Unknown, 03/05/17) Exam I&O / VS Vital Signs Date Time Temp Pulse Resp B/P (MAP) Pulse Ox O2 Delivery O2 Flow Rate FiO2 03/16/17 07:39 94 Nasal Cannula 4.00 03/16/17 07:15 95 Bi-Pap 4.00 03/16/17 06:00 72 03/16/17 04:00 97.5 83 16 111/81 (91) 95 03/16/17 04:00 83 03/16/17 03:11 96 BiPAP 03/16/17 03:00 96 40 03/16/17 02:00 71 03/16/17 00:00 66 03/16/17 00:00 97.3 66 18 121/73 (89) 98 03/15/17 23:40 98 BiPAP 03/15/17 23:37 98 40 03/15/17 22:17 99 40 03/15/17 22:00 62 03/15/17 21:28 99 Bi-Pap 40 03/15/17 21:16 97 40 03/15/17 21:14 95 Nasal Cannula 6.00 03/15/17 20:00 97 Nasal Cannula 4.00 Humidified 03/15/17 20:00 96.4 70 20 105/75 (85) 96 03/15/17 20:00 70 03/15/17 18:00 105 03/15/17 16:00 97.4 75 19 109/69 (82) 95 03/15/17 16:00 78 03/15/17 14:00 88 03/15/17 12:00 79 03/15/17 12:00 98.0 92 20 125/81 (96) 95 03/15/17 10:00 88 03/15/17 09:00 92 Nasal Cannula 6.00 General: Alert and Oriented, No acute distress Exam Comments dysphonic, dysarthric speech, eomi, vff, ou 3mm sluggish, face sym, slow ff sarahi , joseph to gravity with lle weakness 3-4/5 Objective Micro and Labs Laboratory Tests Test 03/16/17 07:15 White Blood Count 14.5 Red Blood Count 4.81 Hemoglobin 13.8 Hematocrit 41.4 Mean Corpuscular Volume 86.1 Mean Corpuscular Hemoglobin 28.7 Mean Corpuscular Hemoglobin Concent 33.3 Red Cell Distribution Width 14.6 Platelet Count 185 Mean Platelet Volume 8.7 Date/Time Source Procedure Growth Status 03/06/17 00:53 Blood Peripheral Aerobic Blood Culture - Final NO GROWTH IN 5 DAYS Complete 03/06/17 00:53 Blood Peripheral Anaerobic Blood Culture - Final NO GROWTH IN 5 DAYS Complete 03/05/17 17:47 Nasal Aspirate Influenza Types A,B Antigen (ASTER) - Final NEGATIVE FOR FLU A AND B ANTIGEN.... Complete Problem Qualifiers (1) HTN (hypertension): Qualified Codes: I10 - Essential (primary) hypertension (2) CAD (coronary artery disease): Garth Gonsalez MD Mar 16, 2017 08:07
[2017-03-16] MEDS: DOCUSATE SODIUM 50 MG/SENNA 8.6 MG TAB PO SCH ×2 (09:00→20:20)
[2017-03-16] MEDS: SODIUM CHLORIDE 0.9% FLUSH 10 ML FLUSH IV FLUSH SCH ×2 (09:00→20:25)
[2017-03-16] MEDS: POLYETHYLENE GLYCOL 17 GM PKG PO SCH (09:00)
[2017-03-16] MEDS: METOPROLOL TARTRATE 50 MG TAB PO SCH ×2 (09:00→21:00)
--- NOTE | 2017-03-16 09:01 | HHI.FPPN ---
Subjective Remarks No acute events overnight. Pt lying in bed this AM, just got done with SEAN. Currently on 4L NC. He complains of mild aching pain in his left leg, radiating from the chambers to the heel. He is able to move his toes w/o problems, sensation intact. Last BM was 10 days ago, he is interested in receiving an enema. After discussing with him about long-term plan for PT/OT at rehab, patient appeared sad. Patient interested in starting an SSRI for depression post -stroke. No other complaints at this time. Denies CP, abdominal pain, and N/V. (Kalyani Loaiza MD R1) Objective Vitals Vital Signs Date Time Temp Pulse Resp B/P (MAP) Pulse Ox O2 Delivery O2 Flow Rate FiO2 03/16/17 08:00 69 03/16/17 07:39 94 Nasal Cannula 4.00 03/16/17 07:15 95 Bi-Pap 4.00 03/16/17 06:00 72 03/16/17 04:00 97.5 83 16 111/81 (91) 95 03/16/17 04:00 83 03/16/17 03:11 96 BiPAP 03/16/17 03:00 96 40 03/16/17 02:00 71 03/16/17 00:00 66 03/16/17 00:00 97.3 66 18 121/73 (89) 98 03/15/17 23:40 98 BiPAP 03/15/17 23:37 98 40 03/15/17 22:17 99 40 03/15/17 22:00 62 03/15/17 21:28 99 Bi-Pap 40 03/15/17 21:16 97 40 03/15/17 21:14 95 Nasal Cannula 6.00 03/15/17 20:00 97 Nasal Cannula 4.00 Humidified 03/15/17 20:00 96.4 70 20 105/75 (85) 96 03/15/17 20:00 70 03/15/17 18:00 105 03/15/17 16:00 97.4 75 19 109/69 (82) 95 03/15/17 16:00 78 03/15/17 14:00 88 03/15/17 12:00 79 03/15/17 12:00 98.0 92 20 125/81 (96) 95 03/15/17 10:00 88 I/O 03/15/17 03/15/17 03/15/17 03/16/17 03/16/17 03/16/17 07:00 15:00 23:00 07:00 15:00 23:00 Intake Total 240 ml 610 ml 140 ml Output Total 700 ml 700 ml 400 ml Balance -460 ml -90 ml -260 ml Intake Oral 240 ml 600 ml 140 ml IV Total 10 ml Output Urine Total 700 ml 700 ml 400 ml # Bowel Movements 0 0 0 (Kalyani Loaiza MD R1) Result Diagram: 03/16/1771403/16/17714 Objective Remarks GENERAL: Elderly gentleman lying in bed, in no acute distress HEENT: Atraumatic, normocephalic with EOMI. No rhinorrhea. MMM. No visible LAD or JVD appreciated. RESPIRATORY: Clear to auscultation bilaterally with no CRW appreciated anteriorly. Poor overall air movement. Patient currently on 6 L nasal cannula. CARDIOVASCULAR: RRR, no m/r/g. Radial and DP pulses 2+ and symmetric bilaterally. Brisk capillary refill. ABDOMEN: Soft, nondistended with positive bowel sounds. Patient tender to mild palpation in all 4 quadrants. No masses appreciated. MUSCULOSKELETAL: No calf tenderness. No edema appreciated. Femoropopliteal bypass incision sites, CDI bandages. Pulses 2+ b/l. sensation intact b/l. Moving toes b/l. SKIN: Essentially clear with no significant rash or lesions. Adequate skin turgor. : catheter in place NEUROLOGICAL:Grossly afocal, slurred speech, improved from prior exam Procedures tPA therapy for thrombolysis of left SFA 03/08-03/09 (Kalyani Loaiza MD R1) A/P Assessment and Plan 76-year-old male s/p Fempop bypass surgery on 03/09 subsequently found to have acute right cerebellar infarct on 03/13. Patient is currently stable. Discharge Planning Pending clinical improvement Unclear timetable Will need OT/PT at rehab (Kalyani Loaiza MD R1) Attending Attestation Pt. examined and case discussed with resident physicians I have read the above note and agree with the assessment/plan as discussed with me I was involved in all medical decision making for this patient Gary Rosado MD (Gary Rosado MD) Problem List: (1) Cerebral infarction due to unspecified occlusion or stenosis of right cerebellar artery ICD Codes: I63.541 - Cerebral infarction due to unspecified occlusion or stenosis of right cerebellar artery Status: Acute Plan: -Neurology consulted, recs appreciated -Normally patient to be anticoagulated, however there is a hemorrhagic signed component to the imaging -continue baby aspirin, Effient discontinued -Neurosurgery consulted, recs appreciated -CT head reviewed, nonoperative mgt -hypercoagulable workup pending -Cardiology consulted, recs appreciated. - SEAN: atrial septal aneurysm and PFO. PFO closure not recommended. Otherwise , unremarkable. -Continue PT/OT/ST Previous Workup: Patient with slurred speech on 03/[address] and MRI showing R cerebellar edema and infarction consistent with CVA. -Head CT: 3.5 x 3.6 cm low attenuation area in the right cerebellar hemisphere area most characteristic of edema which could be secondary to underlying mass or infarction. Second smaller focal peripheral area of decreased attenuation involving the right parietal occipital watershed region concerning for edema as well. Further evaluation with MRI recommended. -Brain MRI: Proximally 5cm infarct of the right cerebellar hemisphere with small punctate infarcts in the right occipital lobe and left parietal lobe. Remote lacunar infarcts of the right basal ganglia and cerebellum. -Head MRA: Patient within normal limits for age -Neck MRA: No significant stenosis in the carotid arteries. Left vertebral artery is dominant. -Neck CTA: Minimal calcific plaquing nonstenotic bilateral carotid bulbs and initial segment of the right internal carotid. -Repeat Brain MRI: no significant change in the appearance of large acute infarction involving the right cerebellum as well as the much smaller acute infarctions involving the right occipital lobe and left high parietal cortex. 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 -Thoracic aneurysm aneurysm will be managed medically and with close follow- up for imaging -Goal systolic blood pressure of less than 120 (4) Flash pulmonary edema ICD Codes: J81.0 - Acute pulmonary edema Status: Resolved Plan: -Pulmonology consulted, appreciate recommendations -Continue Methylprednisolone 40mg IV push q8hr, start to wean as tolerated -PFTs as outpatient -Pt now on 4L NC, wean as tolerated -Continue DuoNebs and incentive spirometry Previous workup: Chest x-ray on admission significant for bibasilar subsegmental atelectasis ACS workup on admission negative D-dimer elevated on admission to 2.51, CTA negative for PE but did show 4.3 cm ascending thoracic aortic aneurysm TSH WNL at 2.56 -Course complicated by flash pulmonary edema on 03/13/17 -Repeat 2-D echo with Doppler ordered by vascular surgery, demonstrated EF of 55 -50, doppler parameters consistent with impaired left ventricular relation ( grade 1 diastolic dysfunction) (5) Superficial femoral artery occlusion ICD Codes: I70.209 - Unspecified atherosclerosis of [place] arteries of extremities, unspecified extremity Status: Resolved Plan: -Patient status post left femoropopliteal bypass femoral endarterectomy popliteal endarterectomy and patch on 03/09 -Patient w/ hx of PAD (6) HTN (hypertension) ICD Codes: I10 - Essential (primary) hypertension Status: Chronic Plan: -Continue lisinopril 10 mg daily, metoprolol tartrate 50 mg PO BID -Vasotec 1.25 mg IV when necessary for systolic blood pressure greater than 160 , diastolic blood pressure greater than 90 -Goal systolic blood pressure of less than 120 due to thoracic aortic aneurysm (7) CAD (coronary artery disease) ICD Codes: I25.10 - Atherosclerotic heart disease of [place] coronary artery without angina pectoris Status: Chronic Plan: -Patient with known CAD, status post coronary stents placed in 2007 -Continue home atorvastatin 80 mg at night, ASA 81 mg daily (8) BPH (benign prostatic hyperplasia) ICD Codes: N40.0 - Benign prostatic hyperplasia without lower urinary tract symptoms Plan: Continue home finasteride 5 mg by mouth daily (9) Constipation ICD Codes: K59.00 - Constipation, unspecified Status: Acute Plan: -Patient has not had a bowel movement in 7 days per chart review. -Fleet enema ordered -Continue constipation protocol. (10) FEN Plan: Diet: Heart healthy diet with nectar thickened liquids Oral fluids only Replete electrolytes as needed Zofran as needed for nausea Tylenol as needed for fever Protonix for GI prophylaxis (Kalyani Loaiza MD R1) Problem Qualifiers (1) HTN (hypertension): Qualified Codes: I10 - Essential (primary) hypertension (2) CAD (coronary artery disease): Qualified Codes: I25.10 - Atherosclerotic heart disease of [place] coronary artery without angina pectoris (3) Constipation: Qualified Codes: K59.00 - Constipation, unspecified Kalyani Loaiza MD R1 Mar 16, 2017 09:01 Gary Rosado MD Mar 16, 2017 12:22
[2017-03-16] MEDS ORDERED: SOD PHOSPHATE/SOD BIPHOSPHATE (ADULT) ENEMA 133ML RECTAL ONE (09:15)
[2017-03-16] MEDS ORDERED: CITALOPRAM HYDROBROMIDE 20 MG TAB PO SCH (09:15)
[2017-03-16] MEDS: DULoxetine HCl DR 30 MG CAP PO SCH (10:00)
--- NOTE | 2017-03-16 10:12 | PD.CARD.PN ---
Subjective Subjective Remarks Denies CP, dyspnea, dizziness, palpitations, PND. Objective Medications Item Value Date Time Metoprolol 50 mg 03/06/17 1000 Tartrate Q12HR/PO (Lopressor) Aspirin 81 mg 03/06/17899 (Aspirin Chew) DAILY/CHEW 03/15/17920 Lisinopril 10 mg 03/06/17899 (Prinivil) DAILY/PO 03/15/17920 Atorvastatin 80 mg 03/05/172214 Calcium HS/PO 03/15/172001 (Lipitor) Metoprolol 50 mg 03/06/17 1000 Tartrate Q12HR/PO (Lopressor) Aspirin 81 mg 03/06/17899 (Aspirin Chew) DAILY/CHEW 03/15/17920 Lisinopril 10 mg 03/06/17899 (Prinivil) DAILY/PO 03/15/17920 Current Medications Medications (Trade) Dose Ordered Sig/[place]izbeth Route Start Time Stop Time Status Last Admin (NS Flush) 2 ml UNSCH PRN IV FLUSH 03/05/17 22:00 (NS Flush) 2 ml BID IV FLUSH 03/06/17 09:00 03/15/17 20:03 (Aspirin Chew) 81 mg DAILY CHEW 03/06/17 09:00 03/15/17 09:21 (Lipitor) 80 mg HS PO 03/05/17 22:15 03/15/17 20:02 (Proscar) 5 mg DAILY PO 03/06/17 09:00 03/15/17 09:22 (Breo Ellipta 200-25 Inh) 1 puff DAILY INH 03/06/17 09:00 03/15/17 09:23 (Neurontin) 300 mg BID PO 03/05/17 22:15 03/15/17 20:02 (Prinivil) 10 mg DAILY PO 03/06/17 09:00 03/15/17 09:21 (Miralax) 17 gm DAILY PO 03/06/17 09:00 03/14/17 15:22 (Effient) 10 mg DAILY PO 03/06/17 09:00 Future Hold 03/12/17 08:51 (Protonix) 40 mg DAILY PO 03/06/17 09:00 03/15/17 09:21 (Theragran) 1 tab DAILY PO 03/06/17 09:00 03/15/17 09:22 (Albuterol Neb) 2.5 mg Q4HR WHILE AWAKE NEB PRN NEB 03/05/17 22:15 03/13/17 00:37 (Zofran Inj) 4 mg Q6HR PRN IV PUSH 03/05/17 22:15 03/10/17 10:46 (Tylenol) 325 mg Q4H PRN PO 03/05/17 22:15 03/11/17 00:55 (Lopressor) 50 mg Q12HR PO 03/06/17 10:00 03/15/17 09:21 (Singulair) 10 mg HS PO 03/06/17 21:00 03/15/17 20:02 (SoluMEDROL INJ) 40 mg Q8HR IV PUSH 03/07/17 14:00 03/16/17 06:00 (Morphine Inj) 4 mg Q3H PRN IV PUSH 03/09/17 16:30 03/13/17 09:57 (Percocet 5-325 Mg) 1 tab Q4H PRN PO 03/09/17 16:30 03/11/17 20:27 (Arleth-Colace) 1 tab BID PO 03/14/17 12:30 03/15/17 20:02 (Milk Of Magnesia Liq) 30 ml Q12H PRN PO 03/14/17 12:30 03/14/17 15:23 (Senokot) 17.2 mg Q12H PRN PO 03/14/17 12:30 (Dulcolax Supp) 10 mg DAILY PRN RECTAL 03/14/17 12:30 (Lactulose Liq) 30 ml DAILY PRN PO 03/14/17 12:30 03/14/17 15:23 (Cymbalta Dr) 30 mg DAILY PO 03/16/17 10:00 Vital Signs / I&O Vital Signs Date Time Temp Pulse Resp B/P (MAP) Pulse Ox O2 Delivery O2 Flow Rate FiO2 03/16/17 08:00 69 03/16/17 07:39 94 Nasal Cannula 4.00 03/16/17 07:15 95 Bi-Pap 4.00 03/16/17 06:00 72 03/16/17 04:00 97.5 83 16 111/81 (91) 95 03/16/17 04:00 83 03/16/17 03:11 96 BiPAP 03/16/17 03:00 96 40 03/16/17 02:00 71 03/16/17 00:00 66 03/16/17 00:00 97.3 66 18 121/73 (89) 98 03/15/17 23:40 98 BiPAP 03/15/17 23:37 98 40 03/15/17 22:17 99 40 03/15/17 22:00 62 03/15/17 21:28 99 Bi-Pap 40 03/15/17 21:16 97 40 03/15/17 21:14 95 Nasal Cannula 6.00 03/15/17 20:00 97 Nasal Cannula 4.00 Humidified 03/15/17 20:00 96.4 70 20 105/75 (85) 96 03/15/17 20:00 70 03/15/17 18:00 105 03/15/17 16:00 97.4 75 19 109/69 (82) 95 03/15/17 16:00 78 03/15/17 14:00 88 03/15/17 12:00 79 03/15/17 12:00 98.0 92 20 125/81 (96) 95 I/O 03/15/17 03/15/17 03/15/17 03/16/17 03/16/17 03/16/17 06:59 14:59 22:59 06:59 14:59 22:59 Intake Total 240 ml 610 ml 140 ml Output Total 700 ml 700 ml 400 ml Balance -460 ml -90 ml -260 ml Intake Oral 240 ml 600 ml 140 ml IV Total 10 ml Output Urine Total 700 ml 700 ml 400 ml # Bowel Movements 0 0 0 Physical Exam GENERAL: Well developed, well nourished. No acute distress. HEENT: Jugular venous pressure is normal. CHEST: Lungs clear to auscultation bilaterally. Unlabored respiratory effort. CARDIAC: Regular rate and rhythm without S3, S4, or murmur. ABDOMEN: Soft, nontender, no hepatosplenomegaly. Bowel sounds present. EXTREMITIES: No clubbing, cyanosis, or edema. Laboratory Laboratory Tests Test 03/16/17 07:15 White Blood Count 14.5 TH/MM3 Red Blood Count 4.81 MIL/MM3 Hemoglobin 13.8 GM/DL Hematocrit 41.4 % Mean Corpuscular Volume 86.1 FL Mean Corpuscular Hemoglobin 28.7 PG Mean Corpuscular Hemoglobin Concent 33.3 % Red Cell Distribution Width 14.6 % Platelet Count 185 TH/MM3 Mean Platelet Volume 8.7 FL Blood Urea Nitrogen 38 MG/DL Creatinine 0.86 MG/DL Random Glucose 101 MG/DL Calcium Level 8.1 MG/DL Sodium Level 138 MEQ/L Potassium Level 4.8 MEQ/L Chloride Level 105 MEQ/L Carbon Dioxide Level 24.9 MEQ/L Anion Gap 8 MEQ/L Estimat Glomerular Filtration Rate 86 ML/MIN Assessment and Plan Problem List: (1) CVA (cerebral vascular accident) ICD Codes: I63.9 - Cerebral infarction, unspecified Status: Acute Plan: Neurologically stable. SEAN today unremarkable except atrial septal aneurysm and patent foramen ovale. Rec consider anticoagulation therapy. Would not recommend PFO closure. (2) CAD (coronary artery disease) ICD Codes: I25.10 - Atherosclerotic heart disease of [place] coronary artery without angina pectoris Status: Chronic Plan: Stable. No recent angina. Continue baby aspirin. OK to keep off Prasugrel from my standpoint. Will f/u PRN. (3) HTN (hypertension) ICD Codes: I10 - Essential (primary) hypertension Status: Chronic Plan: Stable. Normotensive. Code Status full code Problem Qualifiers (1) CVA (cerebral vascular accident): (2) CAD (coronary artery disease): Qualified Codes: I25.10 - Atherosclerotic heart disease of [place] coronary artery without angina pectoris (3) HTN (hypertension): Qualified Codes: I10 - Essential (primary) hypertension Jair De Jesus MD Mar 16, 2017 10:12
[2017-03-16] MEDS: FINASTERIDE 5 MG TAB PO SCH (10:20)
[2017-03-16] MEDS: ASPIRIN 81 MG CHEW TAB CHEW SCH (10:20)
[2017-03-16] MEDS: GABAPENTIN 300 MG CAP PO SCH ×2 (10:21→20:19)
[2017-03-16] MEDS: MULTIVITAMIN TAB PO SCH (10:21)
[2017-03-16] MEDS: LISINOPRIL 10 MG TAB PO SCH (10:21)
[2017-03-16] MEDS: PANTOPRAZOLE SOD 40 MG DELAYED RELEASE TAB PO SCH (10:21)
--- NOTE | 2017-03-16 10:29 | ECHRPT ---
Indication: A FIB FLUTTER CONCLUSIONS Mal left ventricular size and wall thickness. The left ventricular systolic function is normal with an estimated ejection fraction in the range of 55-60%. Normal wall motion. Atrial septal aneurysm is present. Also, color flow Doppler and saline contrast study suggest the p resence of a patent foramen ovale. Trace to mild mitral regurgitation. Trace aortic regurgitation. BP: / HR: Rhythm: MEASUREMENTS (Male / Female) Normal Values Technical Quality: DOPPLER TR Peak Velocity 189.0 cm/s TR Peak Gradient 14.3 mmHg Medications Complications Proc. Components FINDINGS LEFT VENTRICLE Normal left ventricular size and wall thickness. The left ventricular systolic function is normal wi th an estimated ejection fraction in the range of 55-60%. Normal wall motion. RIGHT VENTRICLE Normal right ventricular size and systolic function. LEFT ATRIUM The left atrial size is normal. RIGHT ATRIUM The right atrial size is normal. ATRIAL SEPTUM Atrial septal aneurysm is present. Also, color flow Doppler and saline contrast study suggest the p resence of a patent foramen ovale. AORTA The aortic root and proximal ascending aorta are normal in size on limited imaging. MITRAL VALVE Trace to mild mitral regurgitation. AORTIC VALVE Trace aortic regurgitation. TRICUSPID VALVE Structurally normal tricuspid valve. No tricuspid valve stenosis or regurgitation. VESSELS The inferior vena cava is normal in size. PULMONARY VALVE The pulmonary valve is not well visualized. PERICADIUM No pericardial effusion. Jair De Jesus MD (Electronically Signed) Final Date:16 March 2017 10:28
[2017-03-16] MEDS ORDERED: PROPOFOL 200 MG/20 ML AMP IV ONE (12:00)
--- NOTE | 2017-03-16 16:18 | PD.CAR.PN ---
CVT Progress Note Subjective/Hospital Course: I reviewed the patient's CTA Patient has good flow on the right and vessels are fairly clean but on the left side patient has sudden occlusion of the SFA at the level of the groin and this extends all the way down through the adductor canal to the popliteal artery In face of the VT's of the vessels which appeared to be fairly clean I believe this is a clot Discussed this at length with Dr. Morgan Nelson Suggest patient undergo TPA lysis and if that is not successful he can always have surgical thromboembolectomy Will refer for tPA lysis tomorrow 03/08/17 Patient was scheduled today to undergo TPA lysis of the left leg clot Once the catheter was inserted its noted that this clot is to take into fibrous to remove and at this point the only option is femoropopliteal bypass Patient does have ischemia to the left leg but no limb threatening changes and reconstituted the blood flow at the popliteal level I'll give an option to have the femoropopliteal bypasses done here or at home up [place]. Either option is acceptable as long as its timely 03/10/17 Patient is status post left femoropopliteal bypass femoral endarterectomy popliteal endarterectomy and patch Patient has bounding femoral-popliteal dissolves pedis and posterior tibial pulses Foot is warm graft is widely patent Unfortunately Rodriguez catheter was removed yesterday and patient urinated on his incision throughout the night. I found him in bed with the urine covered wet sheets this a.m. Patient appears to be slightly under hydrated considering that IV was not running through the night Patient did not receive dinner because he was nauseous but didn't receive breakfast either so I ordered breakfast Out of bed today with assistance Change dressings Transferred to surgical floor 03/11/17 Incision clean and dry. Excellent distal pulses Strong dopplerable and even palpable dorsalis pedis and dopplerable posterior tibial Strong signal dopplerable popliteal and the graft Foot nice and warm well perfused with normal capillary refill This morning patient apparently developed respiratory distress with hypotension. Patient was emergently transferred to CVICU Now patient is good bilateral breath sounds and is on 60% FiO2 BiPAP mask This certainly looks most like a fluid overload and mobilization of the third space, rather than pulmonary embolism As far as the d-dimer goes, positive d-dimer which is usually vascular higher than 200 ng/mL may indicate pulmonary embolism but this also seen in patients with a cardiac failure, syncope, trauma etc. On the other hand low d-dimer reliably excludes pulmonary embolism. In this particular patient d-dimer a 16 ng/mL which is clearly negative value as far as pulmonary embolism is concerned and I don't see any value in further studying this line. Agree with diuresis and pulmonary support When all said and done patient will likely need to rehabilitation and family would like to keep him at [place] 03/12/17 Doing much better. Foot warm. Excellent distal pulses and graft flow is brisk. Incisions clean dry. Bilat BS, resp distress resolved. Great work by Dr Perez 03/14/17 I was called by medical residents today stating that yesterday patient started slurring speech which since somewhat resolved. He has multiple bilateral cerebral infarcts cause of which is somewhat elusive considering the fact that patient's cardiac echo was pretty much normal preop Of course posterior circulation infarcts in general are in part caused by vertebral artery stenoses. This on the other hand looks more like an embolic event the repeated episodes over period of time. Some areas appear more acute than others Carotid ultrasound was normal without any areas of increased velocity. Carotid CTA and MRA of the neck both confirm minimal carotid disease and dominant left vertebral artery. Today patient is doing better he doesn't seem to be slurring speech however he is somewhat short of breath and hoarse Motoric the patient is fully intact and this morning both legs have equal strength As far as the leg is concerned he is excellent distal flow graft is widely patent From my point patient doesn't need to be on platelet inhibitors and a baby aspirin a day is okay but not mandatory Continue to follow nothing to add to care right now 03/15/17 Patient status post revascularization of the left leg Patient has palpable femoral pulse and bounding pulses by Doppler distally Incisions are clean and foot is warm As above noted patient suffered repeated strokes in the past and some acute changes are noted on MRI in the right cerebellar and occipital region Patient is awake alert and oriented and dysarthria has disappeared He still seems to be very short of breath and somewhat fluid overloaded Sitting out of bed able to walk with a walker No lateralization Nothing to add to care from vascular point at this time 03/16/17 Incisions clean and dry Excellent perfusion to the distal leg and the foot Graft widely patent with excellent dopplerable signal As far as the cardiac workup I agree completely with Dr. De Jesus that patient would benefit from transesophageal echo As a matter of fact, in my original consult I'm referring to the occlusion of the left superficial femoral artery as probably thromboembolic in nature because the inflow and outflow from their looks good and clean and then there is this area of isolated occlusion. As the patient was throwing emboli to the brain he finally threw emboli to the leg so there must be some source of emboli that we can identify. Objective: Vital Signs Date Time Temp Pulse Resp B/P (MAP) Pulse Ox O2 Delivery O2 Flow Rate FiO2 03/16/17 15:00 73 03/16/17 12:00 98.5 57 22 128/80 (96) 93 03/16/17 12:00 56 03/16/17 10:00 65 03/16/17 08:00 98.0 77 18 107/71 (83) 93 03/16/17 08:00 69 03/16/17 07:39 94 Nasal Cannula 4.00 03/16/17 07:15 95 Bi-Pap 4.00 03/16/17 06:00 72 03/16/17 04:00 97.5 83 16 111/81 (91) 95 03/16/17 04:00 83 03/16/17 03:11 96 BiPAP 03/16/17 03:00 96 40 03/16/17 02:00 71 03/16/17 00:00 66 03/16/17 00:00 97.3 66 18 121/73 (89) 98 03/15/17 23:40 98 BiPAP 03/15/17 23:37 98 40 03/15/17 22:17 99 40 03/15/17 22:00 62 03/15/17 21:28 99 Bi-Pap 40 03/15/17 21:16 97 40 03/15/17 21:14 95 Nasal Cannula 6.00 03/15/17 20:00 97 Nasal Cannula 4.00 Humidified 03/15/17 20:00 96.4 70 20 105/75 (85) 96 03/15/17 20:00 70 03/15/17 18:00 105 Labs: Laboratory Tests Test 03/16/17 07:15 White Blood Count 14.5 TH/MM3 (4.0-11.0) Red Blood Count 4.81 MIL/MM3 (4.50-5.90) Hemoglobin 13.8 GM/DL (13.0-17.0) Hematocrit 41.4 % (39.0-51.0) Mean Corpuscular Volume 86.1 FL (80.0-100.0) Mean Corpuscular Hemoglobin 28.7 PG (27.0-34.0) Mean Corpuscular Hemoglobin Concent 33.3 % (32.0-36.0) Red Cell Distribution Width 14.6 % (11.6-17.2) Platelet Count 185 TH/MM3 (150-450) Mean Platelet Volume 8.7 FL (7.0-11.0) Blood Urea Nitrogen 38 MG/DL (7-18) Creatinine 0.86 MG/DL (0.60-1.30) Random Glucose 101 MG/DL (74-106) Calcium Level 8.1 MG/DL (8.5-10.1) Sodium Level 138 MEQ/L (136-145) Potassium Level 4.8 MEQ/L (3.5-5.1) Chloride Level 105 MEQ/L (98-107) Carbon Dioxide Level 24.9 MEQ/L (21.0-32.0) Anion Gap 8 MEQ/L (5-15) Estimat Glomerular Filtration Rate 86 ML/MIN (>89) Result Diagram: 03/16/1715 03/16/1715 (1) CVA (cerebral vascular accident) Plan: Neurologically stable. SEAN today unremarkable except atrial septal aneurysm and patent foramen ovale. Rec consider anticoagulation therapy. Would not recommend PFO closure. (2) CAD (coronary artery disease) Plan: Stable. No recent angina. Continue baby aspirin. OK to keep off Prasugrel from my standpoint. Will f/u PRN. (3) HTN (hypertension) Plan: Stable. Normotensive. Problem Qualifiers (1) CVA (cerebral vascular accident): (2) CAD (coronary artery disease): Qualified Codes: I25.10 - Atherosclerotic heart disease of [place] coronary artery without angina pectoris (3) HTN (hypertension): Qualified Codes: I10 - Essential (primary) hypertension Calin Hernandez MD Mar 16, 2017 16:18
[2017-03-16] MEDS: ATORVASTATIN 80 MG TAB PO SCH (20:19)
[2017-03-16] MEDS: MONTELUKAST SODIUM 10 MG TAB PO SCH (20:19)
[2017-03-16] MEDS: oxyCODONE/ACETAMINOPHEN 5 MG/325 MG TAB PO PRN (23:18)
[2017-03-17] VITALS (12 sets, daily range): BP systolic 108–142; BP diastolic 67–84; PULSE 61–75; RESP 13–22; TEMP 97.3–98.4; O2SAT 92–100
[2017-03-17] MEDS: methylPREDNISolone SOD SUCC 40 MG/1 ML VIAL IV PUSH SCH ×3 (05:17→20:37)
[2017-03-17 05:34] LABS: HEMATOCRIT 41.8 % (39.0-51.0); MEAN CORPUSCULAR HEMOGLOBIN 28.8 PG (27.0-34.0); MEAN CORPUSCULAR HGB CONC 33.5 % (32.0-36.0); MEAN PLATELET VOLUME 9.1 FL (7.0-11.0); PLATELET COUNT 181 TH/MM3 (150-450); RED BLOOD COUNT 4.86 MIL/MM3 (4.50-5.90); RED CELL DISTRIBUTION WIDTH 14.6 % (11.6-17.2); WHITE BLOOD COUNT 17.5 TH/MM3 (4.0-11.0)
[2017-03-17 05:58] LABS: BICARBONATE 23.3 MEQ/L (21.0-32.0); CALCIUM 7.9 MG/DL (8.5-10.1); CREATININE 0.86 MG/DL (0.60-1.30)
--- NOTE | 2017-03-17 09:13 | HHI.FPPN ---
Subjective Remarks Patient seen and examined by medical team. No acute events overnight per nursing staff. Per report, patient is intermittently dropping his heart rate in to the upper 50s, but remains asymptomatic. Patient had a normal sized and appearing BM yesterday which has resolved his ABD pain. This morning he is on BiPAP after just waking up. His only complaint is continued LLE pain he rates a 4/10. Finally we discussed his Rodriguez catheter as it was ordered to be discontinued approximately 2 days ago. He states that he does not want the catheter out because he has had difficulty urinating in the past. After discussion of possible infection, he is agreeable to voiding trial at this time. Otherwise he expresses no complaints and denies any fevers, chest pain, SOB, NVD, ABD pain, and calf tenderness. (Lv Ordaz MD R2) Objective Vitals Vital Signs Date Time Temp Pulse Resp B/P (MAP) Pulse Ox O2 Delivery O2 Flow Rate FiO2 03/17/17 08:00 62 03/17/17 07:27 99 40 03/17/17 07:15 98 Bi-Pap 40 03/17/17 04:00 97.5 62 16 127/67 (87) 97 03/17/17 04:00 62 03/17/17 03:00 61 03/17/17 00:00 97.3 67 13 131/84 (100) 98 03/16/17 23:00 97 40 03/16/17 23:00 70 03/16/17 20:10 95 Nasal Cannula 4.00 03/16/17 20:00 97.6 74 20 98/59 (72) 93 03/16/17 20:00 74 03/16/17 19:15 92 Room Air 03/16/17 19:00 73 03/16/17 16:00 98.4 76 22 121/83 (96) 92 03/16/17 15:00 73 03/16/17 12:00 98.5 57 22 128/80 (96) 93 03/16/17 12:00 56 03/16/17 10:00 65 I/O 03/16/17 03/16/17 03/16/17 03/17/17 03/17/17 03/17/17 07:00 15:00 23:00 07:00 15:00 23:00 Intake Total 140 ml 500 ml 450 ml Output Total 400 ml 120 ml 1000 ml 925 ml Balance -260 ml 380 ml -550 ml -925 ml Intake Oral 140 ml 450 ml IV Total 500 ml Output Urine Total 400 ml 1000 ml 925 ml Stool Total 120 ml # Bowel Movements 0 1 2 1 (Lv Ordaz MD R2) Result Diagram: 03/17/1734103/17/17341 Objective Remarks GENERAL: Elderly gentleman lying in bed currently on BiPAP, in no acute distress HEENT: Atraumatic, normocephalic with EOMI. No rhinorrhea. MMM. No visible LAD or JVD appreciated. RESPIRATORY: Clear to auscultation bilaterally with no CRW appreciated anteriorly. Patient currently on BiPAP. CARDIOVASCULAR: RRR, no m/r/g. Radial and DP pulses 2+ and symmetric bilaterally. Brisk capillary refill. ABDOMEN: Soft, nondistended, nontender with BS in all 4 quadrants. No masses appreciated. MUSCULOSKELETAL: No calf tenderness. No edema appreciated. LLE Femoropopliteal bypass incision sites, CDI bandages. Pulses 2+ b/l. Sensation intact b/l. Moving toes and legs b/l. SKIN: Essentially clear with no significant rash or lesions. Adequate skin turgor. : Catheter in place with urine in reservoir NEUROLOGICAL: Grossly afocal, slurred speech, improved from prior exam. Patient does attempt to communicate verbally, however he primarily communicates through hand motions and yes/no questions due to the BiPAP. Procedures tPA therapy for thrombolysis of left SFA 03/08-03/09 (Lv Ordaz MD R2) A/P Assessment and Plan 76-year-old male s/p Fempop bypass surgery on 03/09 subsequently found to have acute right cerebellar infarct on 03/13. Patient is currently stable. Discharge Planning Pending clinical improvement Unclear timetable Will need OT/PT at rehab, plan to discuss with CM (Lv Ordaz MD R2) Attending Attestation Patient examined and case discussed with resident physicians I have read the above note and agree with the assessment/plan as discussed with me I was involved in all medical decision making for this patient Gary Rosado MD (Gary Rosado MD) Problem List: (1) Cerebral infarction due to unspecified occlusion or stenosis of right cerebellar artery ICD Codes: I63.541 - Cerebral infarction due to unspecified occlusion or stenosis of right cerebellar artery Status: Acute Plan: -Neurology consulted, recs appreciated -Normally patient to be anticoagulated, however there is a hemorrhagic signed component to the imaging -Continue baby aspirin, Effient discontinued -Neurosurgery consulted, recs appreciated -CT head reviewed, nonoperative mgt -Hypercoagulable workup pending -Cardiology consulted, recs appreciated. - SEAN: atrial septal aneurysm and PFO. PFO closure not recommended. Otherwise , unremarkable. -Continue PT/OT/ST Previous Workup: Patient with slurred speech on 03/[address] and MRI showing R cerebellar edema and infarction consistent with CVA. -Head CT: 3.5 x 3.6 cm low attenuation area in the right cerebellar hemisphere area most characteristic of edema which could be secondary to underlying mass or infarction. Second smaller focal peripheral area of decreased attenuation involving the right parietal occipital watershed region concerning for edema as well. Further evaluation with MRI recommended. -Brain MRI: Proximally 5cm infarct of the right cerebellar hemisphere with small punctate infarcts in the right occipital lobe and left parietal lobe. Remote lacunar infarcts of the right basal ganglia and cerebellum. -Head MRA: Patient within normal limits for age -Neck MRA: No significant stenosis in the carotid arteries. Left vertebral artery is dominant. -Neck CTA: Minimal calcific plaquing nonstenotic bilateral carotid bulbs and initial segment of the right internal carotid. -Repeat Brain MRI: no significant change in the appearance of large acute infarction involving the right cerebellum as well as the much smaller acute infarctions involving the right occipital lobe and left high parietal cortex. 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 -Thoracic aneurysm aneurysm will be managed medically and with close follow- up for imaging -Goal systolic blood pressure of less than 120 (5) Flash pulmonary edema ICD Codes: J81.0 - Acute pulmonary edema Status: Resolved Plan: -Pulmonology consulted, appreciate recommendations -Continue Methylprednisolone 40mg IV push q8hr, start to wean as tolerated -PFTs as outpatient -Pt now on 4L NC, wean as tolerated -Continue DuoNebs and incentive spirometry Previous workup: Chest x-ray on admission significant for bibasilar subsegmental atelectasis ACS workup on admission negative D-dimer elevated on admission to 2.51, CTA negative for PE but did show 4.3 cm ascending thoracic aortic aneurysm TSH WNL at 2.56 -Course complicated by flash pulmonary edema on 03/13/17 -Repeat 2-D echo with Doppler ordered by vascular surgery, demonstrated EF of 55 -50, doppler parameters consistent with impaired left ventricular relation ( grade 1 diastolic dysfunction) (6) Superficial femoral artery occlusion ICD Codes: I70.209 - Unspecified atherosclerosis of [place] arteries of extremities, unspecified extremity Status: Resolved Plan: -Patient status post left femoropopliteal bypass femoral endarterectomy popliteal endarterectomy and patch on 03/09 -Patient w/ hx of PAD (7) HTN (hypertension) ICD Codes: I10 - Essential (primary) hypertension Status: Chronic Plan: -Continue lisinopril 10 mg daily, metoprolol tartrate 50 mg PO BID -Vasotec 1.25 mg IV when necessary for systolic blood pressure greater than 160 , diastolic blood pressure greater than 90 -Goal systolic blood pressure of less than 120 due to thoracic aortic aneurysm (8) CAD (coronary artery disease) ICD Codes: I25.10 - Atherosclerotic heart disease of [place] coronary artery without angina pectoris Status: Chronic Plan: -Patient with known CAD, status post coronary stents placed in 2007 -Continue home atorvastatin 80 mg at night, ASA 81 mg daily (9) BPH (benign prostatic hyperplasia) ICD Codes: N40.0 - Benign prostatic hyperplasia without lower urinary tract symptoms Plan: Continue home finasteride 5 mg by mouth daily (10) Constipation ICD Codes: K59.00 - Constipation, unspecified Status: Acute Plan: -Patient has not had a bowel movement in 7 days per chart review. -Fleet enema ordered -Continue constipation protocol. (11) FEN Plan: Diet: Heart healthy diet with nectar thickened liquids Oral fluids only Replete electrolytes as needed Zofran as needed for nausea Tylenol as needed for fever Protonix for GI prophylaxis (Lv Ordaz MD R2) Problem Qualifiers (1) Leukocytosis: Qualified Codes: D72.823 - Leukemoid reaction (2) HTN (hypertension): Qualified Codes: I10 - Essential (primary) hypertension (3) CAD (coronary artery disease): Qualified Codes: I25.10 - Atherosclerotic heart disease of [place] coronary artery without angina pectoris (4) Constipation: Qualified Codes: K59.00 - Constipation, unspecified Lv Ordaz MD R2 Mar 17, 2017 09:13 Gary Rosado MD Mar 17, 2017 10:01
[2017-03-17] MEDS: DULoxetine HCl DR 30 MG CAP PO SCH (09:26)
[2017-03-17] MEDS: MULTIVITAMIN TAB PO SCH (09:27)
[2017-03-17] MEDS: FINASTERIDE 5 MG TAB PO SCH (09:27)
[2017-03-17] MEDS: ASPIRIN 81 MG CHEW TAB CHEW SCH (09:27)
[2017-03-17] MEDS: DOCUSATE SODIUM 50 MG/SENNA 8.6 MG TAB PO SCH ×2 (09:27→20:35)
[2017-03-17] MEDS: SODIUM CHLORIDE 0.9% FLUSH 10 ML FLUSH IV FLUSH SCH ×2 (09:27→20:37)
[2017-03-17] MEDS: LISINOPRIL 10 MG TAB PO SCH (09:27)
[2017-03-17] MEDS: POLYETHYLENE GLYCOL 17 GM PKG PO SCH (09:27)
[2017-03-17] MEDS: PANTOPRAZOLE SOD 40 MG DELAYED RELEASE TAB PO SCH (09:27)
[2017-03-17] MEDS: METOPROLOL TARTRATE 50 MG TAB PO SCH ×2 (09:27→20:36)
[2017-03-17] MEDS: GABAPENTIN 300 MG CAP PO SCH ×2 (09:27→20:35)
[2017-03-17] MEDS: FLUTICASONE 200 MCG/VILANTEROL 25 MCG INHALER INH SCH (09:28)
--- NOTE | 2017-03-17 11:08 | RADRPT ---
EXAM DATE/TIME: 03/17/2017 10:24 [facility] COMPARISON: CHEST SINGLE AP, March 13, 2017, 8:03. INDICATIONS : Dyspnea. MEDICAL HISTORY : Hypertension. Cerebrovascular disease. Myocardial infarction SURGICAL HISTORY : Coronary artery stent. ENCOUNTER: Subsequent ACUITY: 1 week PAIN SCORE: 0/10 LOCATION: Bilateral chest FINDINGS: A single portable frontal view the chest shows a consolidation involving the infrahilar region on the right. This is new from the prior study. Left lung is clear. No effusions. Heart normal size. A dege nerative thoracic spine. CONCLUSION: Consolidation within the infrahilar region on the right. This is new from the prior exam. Rounded ate lectasis versus developing infiltrate. Adrian Perez Jr., MD on March 17, 2017 at 10:54 Board Certified Radiologist. This report was verified electronically.
[2017-03-17] MEDS: RESP: ALBUTEROL 2.5 MG/3 ML NEB (PRN) NEB (12:36)
--- NOTE | 2017-03-17 14:37 | HHI.PR ---
Subjective Remarks ALERT NO SOB S/P REVASCULARIZATION Objective Vital Signs Date Time Temp Pulse Resp B/P (MAP) Pulse Ox O2 Delivery O2 Flow Rate FiO2 03/17/17 12:35 97 Nasal Cannula 4.00 03/17/17 12:00 67 03/17/17 12:00 98.4 71 21 109/67 (81) 100 03/17/17 08:00 98.2 64 15 131/70 (90) 99 03/17/17 08:00 62 03/17/17 07:27 99 40 03/17/17 07:15 98 Bi-Pap 40 03/17/17 04:00 97.5 62 16 127/67 (87) 97 03/17/17 04:00 62 03/17/17 03:00 61 03/17/17 00:00 97.3 67 13 131/84 (100) 98 03/16/17 23:00 97 40 03/16/17 23:00 70 03/16/17 20:10 95 Nasal Cannula 4.00 03/16/17 20:00 97.6 74 20 98/59 (72) 93 03/16/17 20:00 74 03/16/17 19:15 92 Room Air 03/16/17 19:00 73 03/16/17 16:00 98.4 76 22 121/83 (96) 92 03/16/17 15:00 73 I/O 03/16/17 03/16/17 03/16/17 03/17/17 03/17/17 03/17/17 07:00 15:00 23:00 07:00 15:00 23:00 Intake Total 140 ml 500 ml 450 ml Output Total 400 ml 120 ml 1000 ml 925 ml Balance -260 ml 380 ml -550 ml -925 ml Intake Oral 140 ml 450 ml IV Total 500 ml Output Urine Total 400 ml 1000 ml 925 ml Stool Total 120 ml # Bowel Movements 0 1 2 1 Result Diagram: 03/17/172 03/17/17 034 Objective Remarks GENERAL: SKIN: Warm and dry. HEAD: Atraumatic. Normocephalic. EYES: Pupils equal and round. No scleral icterus. No injection or drainage. ENT: No nasal bleeding or discharge. Mucous membranes pink and moist. NECK: Trachea midline. No JVD. CARDIOVASCULAR: Regular rate and rhythm. RESPIRATORY: No accessory muscle use. Clear to auscultation. Breath sounds equal bilaterally. GASTROINTESTINAL: Abdomen soft, non-tender, nondistended. Hepatic and splenic margins not palpable. MUSCULOSKELETAL: Extremities without clubbing, cyanosis, or edema. No obvious deformities. NEUROLOGICAL: Awake and alert. No obvious cranial nerve deficits. Motor grossly within normal limits. Five out of 5 muscle strength in the arms and legs. Normal speech. PSYCHIATRIC: Appropriate mood and affect; insight and judgment normal. Assessment and Plan Assessment and Plan ? BRONCHIAL ASTHMA, now stable pvd s/p CVA PLAN O2 NEEDED PRN ALBUTEROL INREASE ACTIVITY Discharge Planning GENERAL: SKIN: Warm and dry. HEAD: Atraumatic. Normocephalic. EYES: Pupils equal and round. No scleral icterus. No injection or drainage. ENT: No nasal bleeding or discharge. Mucous membranes pink and moist. NECK: Trachea midline. No JVD. CARDIOVASCULAR: Regular rate and rhythm. RESPIRATORY: No accessory muscle use. Clear to auscultation. Breath sounds equal bilaterally. GASTROINTESTINAL: Abdomen soft, non-tender, nondistended. Hepatic and splenic margins not palpable. MUSCULOSKELETAL: Extremities without clubbing, cyanosis, or edema. No obvious deformities. NEUROLOGICAL: Awake and alert. No obvious cranial nerve deficits. Motor grossly within normal limits. Five out of 5 muscle strength in the arms and legs. Normal speech. PSYCHIATRIC: Appropriate mood and affect; insight and judgment normal. Krysta Chaparro MD Mar 17, 2017 14:37
--- NOTE | 2017-03-17 14:46 | HM ---
Date Performed: 03/14/2017 Time Performed: 12:48:00 HOOKUP DATE: 03/14/17 12:48:00 PM Tue ANALYSIS START TIME: 03/14/2017 12:53:00 PM ANALYSIS END TIME: 03/15/2017 12:57:00 PM PATIENT AGE: 76 PATIENT HEIGHT PATIENT WEIGHT DRUG LIST PATIENT DIAGNOSIS: SOB TEST NARRATIVE: The patient's average heart rate was 70 BPM. Heart rates greater than 120 B PM were noted < 1% of the time. Heart rates less than 50 BPM were noted < 1% of the time. No roberto ses exceeding 2.0 seconds were noted. 1405 ventricular ectopics, which represented 2% of the tota l beat count, were noted. The highest ventricular ectopic frequency occurred from 04:00 PM to 05:00 PM Tue. During this time 247 VE(s) occurred. Ventricular ectopics were observed as 1399 isolated be at(s) and as 3 couplet(s). No runs were noted. 1 supraventricular ectopics, which represented < 1% of the total beat count, were noted. The highest supraventricular ectopic frequency occurred from 04:00 AM to 05:00 AM Wed. During this time 1 SVE(s) occurred. No episodes of ST depression (def ined as -1.0 mm or more) were noted in channel 1. No episodes of ST depression (defined as -1.0 mm o r more) were noted in channel 2. No episodes of ST depression (defined as -1.0 mm or more) were note d in channel 3. NO DIARY MAINTAINED TEST INTERPRETATION: The patient is in Sinus rhythm throughout the recording with an average heart rate of 70, minimum heart rate of 47, and a peaked he art rate of 120 bpm. There are frequent ventricular premature beats with 1399 counted by the compute r. There are 3 couplets. There are no runs of ventricular tachycardia. There are rare atrial prematu re beats. There are no runs of supraventricular tachycardia. There is no diary. Conclusions: Sinus rhythm throughout the recording and frequent ventricular ectopy as described. Signed by : Austin Ward
--- NOTE | 2017-03-17 14:50 | HHI.PR ---
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 cardiology suggests anticoagulation; future consideration once ich resolves; possibly in 2-4 weeks recs neuro stable ok for floor with tele- going to 4th floor watch bp continue aspirin therapy rehab placement (2) HTN (hypertension) ICD Codes: I10 - Essential (primary) hypertension Status: Chronic (3) CAD (coronary artery disease) ICD Codes: I25.10 - Atherosclerotic heart disease of [place] coronary artery without angina pectoris Status: Chronic Subjective Subjective Comments No acute events reported No headache No chest pain No dyspnea Active Medications Current Medications Medications (Trade) Dose Ordered Sig/Lizbeth Route Start Time Stop Time Status Last Admin (NS Flush) 2 ml UNSCH PRN IV FLUSH 03/05/17 22:00 (NS Flush) 2 ml BID IV FLUSH 03/06/17 09:00 03/17/17 09:27 (Aspirin Chew) 81 mg DAILY CHEW 03/06/17 09:00 03/17/17 09:27 (Lipitor) 80 mg HS PO 03/05/17 22:15 03/16/17 20:19 (Proscar) 5 mg DAILY PO 03/06/17 09:00 03/17/17 09:27 (Breo Ellipta 200-25 Inh) 1 puff DAILY INH 03/06/17 09:00 03/17/17 09:28 (Neurontin) 300 mg BID PO 03/05/17 22:15 03/17/17 09:27 (Prinivil) 10 mg DAILY PO 03/06/17 09:00 03/17/17 09:27 (Miralax) 17 gm DAILY PO 03/06/17 09:00 03/17/17 09:27 (Effient) 10 mg DAILY PO 03/06/17 09:00 Future Hold 03/12/17 08:51 (Protonix) 40 mg DAILY PO 03/06/17 09:00 03/17/17 09:27 (Theragran) 1 tab DAILY PO 03/06/17 09:00 03/17/17 09:27 (Albuterol Neb) 2.5 mg Q4HR WHILE AWAKE NEB PRN NEB 03/05/17 22:15 03/17/17 12:36 (Zofran Inj) 4 mg Q6HR PRN IV PUSH 03/05/17 22:15 03/10/17 10:46 (Tylenol) 325 mg Q4H PRN PO 03/05/17 22:15 03/11/17 00:55 (Lopressor) 50 mg Q12HR PO 03/06/17 10:00 03/17/17 09:27 (Singulair) 10 mg HS PO 03/06/17 21:00 03/16/17 20:19 (SoluMEDROL INJ) 40 mg Q8HR IV PUSH 03/07/17 14:00 03/17/17 05:17 (Morphine Inj) 4 mg Q3H PRN IV PUSH 03/09/17 16:30 03/13/17 09:57 (Percocet 5-325 Mg) 1 tab Q4H PRN PO 03/09/17 16:30 03/16/17 23:18 (Arleth-Colace) 1 tab BID PO 03/14/17 12:30 03/17/17 09:27 (Milk Of Magnesia Liq) 30 ml Q12H PRN PO 03/14/17 12:30 03/14/17 15:23 (Senokot) 17.2 mg Q12H PRN PO 03/14/17 12:30 (Dulcolax Supp) 10 mg DAILY PRN RECTAL 03/14/17 12:30 (Lactulose Liq) 30 ml DAILY PRN PO 03/14/17 12:30 03/14/17 15:23 (Cymbalta Dr) 30 mg DAILY PO 03/16/17 10:00 03/17/17 09:26 Allergies Allergies Coded Allergies chocolate flavor (Verified Allergy, Unknown, 03/05/17) milk (Verified Allergy, Unknown, 03/05/17) orange juice (Verified Allergy, Unknown, 03/05/17) peanut (Verified Allergy, Unknown, 03/05/17) Uncoded Allergies granulated sugar ( Allergy, Unknown, 03/05/17) Exam I&O / VS Vital Signs Date Time Temp Pulse Resp B/P (MAP) Pulse Ox O2 Delivery O2 Flow Rate FiO2 03/17/17 12:35 97 Nasal Cannula 4.00 03/17/17 12:00 67 03/17/17 12:00 98.4 71 21 109/67 (81) 100 03/17/17 08:00 98.2 64 15 131/70 (90) 99 03/17/17 08:00 62 03/17/17 07:27 99 40 03/17/17 07:15 98 Bi-Pap 40 03/17/17 04:00 97.5 62 16 127/67 (87) 97 03/17/17 04:00 62 03/17/17 03:00 61 03/17/17 00:00 97.3 67 13 131/84 (100) 98 03/16/17 23:00 97 40 03/16/17 23:00 70 03/16/17 20:10 95 Nasal Cannula 4.00 03/16/17 20:00 97.6 74 20 98/59 (72) 93 03/16/17 20:00 74 03/16/17 19:15 92 Room Air 03/16/17 19:00 73 03/16/17 16:00 98.4 76 22 121/83 (96) 92 03/16/17 15:00 73 General: Alert and Oriented, No acute distress Exam Comments dysphonic, dysarthric speech, eomi, vff, ou 3mm sluggish, face sym, slow ff sarahi , joseph to gravity with lle weakness 3-4/5 Objective Micro and Labs Laboratory Tests Test 03/17/17 03:42 White Blood Count 17.5 Red Blood Count 4.86 Hemoglobin 14.0 Hematocrit 41.8 Mean Corpuscular Volume 86.0 Mean Corpuscular Hemoglobin 28.8 Mean Corpuscular Hemoglobin Concent 33.5 Red Cell Distribution Width 14.6 Platelet Count 181 Mean Platelet Volume 9.1 Blood Urea Nitrogen 43 Creatinine 0.86 Random Glucose 114 Calcium Level 7.9 Sodium Level 138 Potassium Level 4.8 Chloride Level 105 Carbon Dioxide Level 23.3 Anion Gap 10 Estimat Glomerular Filtration Rate 86 Date/Time Source Procedure Growth Status 03/06/17 00:53 Blood Peripheral Aerobic Blood Culture - Final NO GROWTH IN 5 DAYS Complete 03/06/17 00:53 Blood Peripheral Anaerobic Blood Culture - Final NO GROWTH IN 5 DAYS Complete 03/05/17 17:47 Nasal Aspirate Influenza Types A,B Antigen (ASTER) - Final NEGATIVE FOR FLU A AND B ANTIGEN.... Complete Problem Qualifiers (1) HTN (hypertension): Qualified Codes: I10 - Essential (primary) hypertension (2) CAD (coronary artery disease): Qualified Codes: I25.10 - Atherosclerotic heart disease of [place] coronary artery without angina pectoris Garth Gonsalez MD Mar 17, 2017 14:50
[2017-03-17] MEDS ORDERED: Vancomycin Consult Pharmacy 1 EA OTHER SCH (15:30)
[2017-03-17] MEDS ORDERED: VANCOMYCIN INJ 1,500 MG in SODIUM CHLORID 0.9% 500 ML INJ 500 ML IV SCH (15:30)
--- NOTE | 2017-03-17 15:48 | PD.CAR.PN ---
CVT Progress Note Subjective/Hospital Course: I reviewed the patient's CTA Patient has good flow on the right and vessels are fairly clean but on the left side patient has sudden occlusion of the SFA at the level of the groin and this extends all the way down through the adductor canal to the popliteal artery In face of the MS's of the vessels which appeared to be fairly clean I believe this is a clot Discussed this at length with Dr. Morgna Nelson Suggest patient undergo TPA lysis and if that is not successful he can always have surgical thromboembolectomy Will refer for tPA lysis tomorrow 03/08/17 Patient was scheduled today to undergo TPA lysis of the left leg clot Once the catheter was inserted its noted that this clot is to take into fibrous to remove and at this point the only option is femoropopliteal bypass Patient does have ischemia to the left leg but no limb threatening changes and reconstituted the blood flow at the popliteal level I'll give an option to have the femoropopliteal bypasses done here or at home up [place]. Either option is acceptable as long as its timely 03/10/17 Patient is status post left femoropopliteal bypass femoral endarterectomy popliteal endarterectomy and patch Patient has bounding femoral-popliteal dissolves pedis and posterior tibial pulses Foot is warm graft is widely patent Unfortunately Rodriguez catheter was removed yesterday and patient urinated on his incision throughout the night. I found him in bed with the urine covered wet sheets this a.m. Patient appears to be slightly under hydrated considering that IV was not running through the night Patient did not receive dinner because he was nauseous but didn't receive breakfast either so I ordered breakfast Out of bed today with assistance Change dressings Transferred to surgical floor 03/11/17 Incision clean and dry. Excellent distal pulses Strong dopplerable and even palpable dorsalis pedis and dopplerable posterior tibial Strong signal dopplerable popliteal and the graft Foot nice and warm well perfused with normal capillary refill This morning patient apparently developed respiratory distress with hypotension. Patient was emergently transferred to CVICU Now patient is good bilateral breath sounds and is on 60% FiO2 BiPAP mask This certainly looks most like a fluid overload and mobilization of the third space, rather than pulmonary embolism As far as the d-dimer goes, positive d-dimer which is usually vascular higher than 200 ng/mL may indicate pulmonary embolism but this also seen in patients with a cardiac failure, syncope, trauma etc. On the other hand low d-dimer reliably excludes pulmonary embolism. In this particular patient d-dimer a 16 ng/mL which is clearly negative value as far as pulmonary embolism is concerned and I don't see any value in further studying this line. Agree with diuresis and pulmonary support When all said and done patient will likely need to rehabilitation and family would like to keep him at [facility] 03/12/17 Doing much better. Foot warm. Excellent distal pulses and graft flow is brisk. Incisions clean dry. Bilat BS, resp distress resolved. Great work by Dr Perez 03/14/17 I was called by medical residents today stating that yesterday patient started slurring speech which since somewhat resolved. He has multiple bilateral cerebral infarcts cause of which is somewhat elusive considering the fact that patient's cardiac echo was pretty much normal preop Of course posterior circulation infarcts in general are in part caused by vertebral artery stenoses. This on the other hand looks more like an embolic event the repeated episodes over period of time. Some areas appear more acute than others Carotid ultrasound was normal without any areas of increased velocity. Carotid CTA and MRA of the neck both confirm minimal carotid disease and dominant left vertebral artery. Today patient is doing better he doesn't seem to be slurring speech however he is somewhat short of breath and hoarse Motoric the patient is fully intact and this morning both legs have equal strength As far as the leg is concerned he is excellent distal flow graft is widely patent From my point patient doesn't need to be on platelet inhibitors and a baby aspirin a day is okay but not mandatory Continue to follow nothing to add to care right now 03/15/17 Patient status post revascularization of the left leg Patient has palpable femoral pulse and bounding pulses by Doppler distally Incisions are clean and foot is warm As above noted patient suffered repeated strokes in the past and some acute changes are noted on MRI in the right cerebellar and occipital region Patient is awake alert and oriented and dysarthria has disappeared He still seems to be very short of breath and somewhat fluid overloaded Sitting out of bed able to walk with a walker No lateralization Nothing to add to care from vascular point at this time 03/16/17 Incisions clean and dry Excellent perfusion to the distal leg and the foot Graft widely patent with excellent dopplerable signal As far as the cardiac workup I agree completely with Dr. De Jesus that patient would benefit from transesophageal echo As a matter of fact, in my original consult I'm referring to the occlusion of the left superficial femoral artery as probably thromboembolic in nature because the inflow and outflow from their looks good and clean and then there is this area of isolated occlusion. As the patient was throwing emboli to the brain he finally threw emboli to the leg so there must be some source of emboli that we can identify. 03/17/17 Patient stable from surgical point Incisions are clean and dry Excellent pulse in the leg with a brisk Doppler signal At this point nothing to add to care for my point Will sign off the patient and if other issues arise please let me know Objective: Vital Signs Date Time Temp Pulse Resp B/P (MAP) Pulse Ox O2 Delivery O2 Flow Rate FiO2 03/17/17 12:35 97 Nasal Cannula 4.00 03/17/17 12:00 67 03/17/17 12:00 98.4 71 21 109/67 (81) 100 03/17/17 08:00 98.2 64 15 131/70 (90) 99 03/17/17 08:00 62 03/17/17 07:27 99 40 03/17/17 07:15 98 Bi-Pap 40 03/17/17 04:00 97.5 62 16 127/67 (87) 97 03/17/17 04:00 62 03/17/17 03:00 61 03/17/17 00:00 97.3 67 13 131/84 (100) 98 03/16/17 23:00 97 40 03/16/17 23:00 70 03/16/17 20:10 95 Nasal Cannula 4.00 03/16/17 20:00 97.6 74 20 98/59 (72) 93 03/16/17 20:00 74 03/16/17 19:15 92 Room Air 03/16/17 19:00 73 03/16/17 16:00 98.4 76 22 121/83 (96) 92 Result Diagram: 03/17/1734103/17/17341 (1) CVA (cerebral vascular accident) Plan: Neurologically stable. SEAN today unremarkable except atrial septal aneurysm and patent foramen ovale. Rec consider anticoagulation therapy. Would not recommend PFO closure. (2) CAD (coronary artery disease) Plan: Stable. No recent angina. Continue baby aspirin. OK to keep off Prasugrel from my standpoint. Will f/u PRN. (3) HTN (hypertension) Plan: Stable. Normotensive. Problem Qualifiers (1) CVA (cerebral vascular accident): (2) CAD (coronary artery disease): Qualified Codes: I25.10 - Atherosclerotic heart disease of [place] coronary artery without angina pectoris (3) HTN (hypertension): Qualified Codes: I10 - Essential (primary) hypertension Calin Hernandez MD Mar 17, 2017 15:48
[2017-03-17 15:52] LABS: DRVVT 1:1 MIX ND (CORRECTED); DRVVT CONFIRM NEGATIVE (NEGATIVE); HEXAGONAL PHASE CONFIRM ND (NEGATIVE)
[2017-03-17 16:14] LABS: CARDIOLIPIN IGG AB <9.4 GPL; CARDIOLIPIN IGM AB 19.6 MPL
[2017-03-17] MEDS: VANCOMYCIN 1,500 MG/NS 500 ML IV SCH ×2 (17:04)
[2017-03-17] MEDS: PIPERACIL-TAZO 4.5 GM PREMIX 100 ML IV SCH (19:10)
[2017-03-17 19:36] LABS: BACTERIA, URINE RARE /hpf; BILIRUBIN, URINE NEG (NEG); BLOOD, URINE MOD (NEG); GLUCOSE,URINE NEG (NEG); KETONE, URINE NEG (NEG); MUCUS URINE FEW /lpf (OCC); NITRITE,URINE NEG (NEG); SQUAMOUS EPITHELIAL CELL URINE 1 /hpf (0-5); URINE COLOR YELLOW (YELLW/STRAW); URINE LEUKOCYTE ESTERASE MOD (NEG); WHITE BLOOD CELL CLUMPS RARE
--- NOTE | 2017-03-17 19:50 | HHI.NSPN ---
Note Status Status: Progress Note Interval History Diagnosis THIS NOTE REPRESENGTS MY ENCOUNTER ON 03/16/17 DURING ROUNDS cerebellar infarction Interval History THIS NOTE REPRESENGTS MY ENCOUNTER ON 03/16/17 DURING ROUNDS Mr. Gallagher is a very pleasant 76 year old male. History was mostly obtained from his at bedside due to his severe dysarthria. His reports the patient presented to the ED on 03/05/2017 initially for shortness of breath. He has a known history of blood clots in his leg and is being managed in [place]. They are currently here on vacation for 2 months. Initially he was found to have elevated D-dimers but an angiography was negative for pulmonary embolism. He was evaluated by vascular surgeon Dr. Hernandez. He is being managed nonoperatively for thoracic aortic aneurysm. However underwent a fempop bypass surgery on 03/09/2017 due to an occlusion. The reports following surgery in recovery the patient was speaking well and normally. The following day she noted some dysarthria but attributed it to his current shortness of breath. He had an episode of acute hypoxia with respiratory distress and was monitored in CVICU. His reports his oxygenation improved however his dysarthria did not and he was worked up for possible CVA. He underwent an MRI brain which showed an acute right cerebellar ischemic infarction with punctate infarcts in the right occipital and left parietal lobes. No hydrocephalus. The patient does report positive headaches as well as possible increase drowsiness. However he remains and appear to be awake and alert. He denies focal weakness, extremity paresthesias, vision changes. Neurosurgical evaluation was requested. 03/15: remains severely dysarthric, but awake and alert overnight, no acute mental status changes. f/u CT Head this morning with stable right cerebellar infarction, fourth ventricle open, no signs of hydrocephalus. 03/16. Alert and awake. Dysarthric speech. Follows commands. Wearing CPAP mask Labs, Micro, & Vital Signs Results THIS NOTE REPRESENGTS MY ENCOUNTER ON 03/16/17 DURING ROUNDS Date Time Temp Pulse Resp B/P (MAP) Pulse Ox O2 Delivery O2 Flow Rate FiO2 03/17/17 17:55 3.00 03/17/17 15:41 97.6 66 16 108/69 (82) 93 03/17/17 15:30 Nasal Cannula 3.00 03/17/17 12:35 97 Nasal Cannula 4.00 03/17/17 12:00 67 03/17/17 12:00 98.4 71 21 109/67 (81) 100 03/17/17 08:00 98.2 64 15 131/70 (90) 99 03/17/17 08:00 62 03/17/17 07:27 99 40 03/17/17 07:15 98 Bi-Pap 40 03/17/17 04:00 97.5 62 16 127/67 (87) 97 03/17/17 04:00 62 03/17/17 03:00 61 03/17/17 00:00 97.3 67 13 131/84 (100) 98 03/16/17 23:00 97 40 03/16/17 23:00 70 03/16/17 20:10 95 Nasal Cannula 4.00 03/16/17 20:00 97.6 74 20 98/59 (72) 93 03/16/17 20:00 74 03/18/17 07:00 Output Total 225 ml Balance -225 ml Constitutional THIS NOTE REPRESENGTS MY ENCOUNTER ON 03/16/17 DURING ROUNDS Vital Signs Date Time Temp Pulse Resp B/P (MAP) Pulse Ox O2 Delivery O2 Flow Rate FiO2 03/17/17 17:55 3.00 03/17/17 15:41 97.6 66 16 108/69 (82) 93 03/17/17 15:30 Nasal Cannula 3.00 03/17/17 12:35 97 Nasal Cannula 4.00 03/17/17 12:00 67 03/17/17 12:00 98.4 71 21 109/67 (81) 100 03/17/17 08:00 98.2 64 15 131/70 (90) 99 03/17/17 08:00 62 03/17/17 07:27 99 40 03/17/17 07:15 98 Bi-Pap 40 03/17/17 04:00 97.5 62 16 127/67 (87) 97 03/17/17 04:00 62 03/17/17 03:00 61 03/17/17 00:00 97.3 67 13 131/84 (100) 98 03/16/17 23:00 97 40 03/16/17 23:00 70 03/16/17 20:10 95 Nasal Cannula 4.00 03/16/17 20:00 97.6 74 20 98/59 (72) 93 03/16/17 20:00 74 03/18/17 07:00 Output Total 225 ml Balance -225 ml Physical Exam THIS NOTE REPRESENGTS MY ENCOUNTER ON 03/16/17 DURING ROUNDS Mr. Gallagher is comfortable, in no obvious distress during examination. Speech is dysarthric Neuro: Awake, alert. Speech is severely dysarthric. Can follow single and multi -step commands without apraxia. Cranial nerve examination: pupils to be equal, round, and reactive to light. Extra-ocular movements are intact with normal convergence. Facial motor and sensory function are normal and symmetrical. Tongue protruded midline. HENT: Normocephalic, atraumatic. Gross hearing intact bilaterally. Eyes: Pupils 4 mm equal round. Extra-ocular movement intact. Nonicteric sclera. No nistagmus Neck: soft, supple Extremities moves grossly muscle groups of both upper extremities including deltoid, biceps, triceps and overnight stocker. In the lower extremities exam limited he had gross proximal movement bilaterally, 4/5 distal lower extremity strength Sensory examination is intact light touch in both the upper and lower extremities Reflex: bilateral plantar flexion response. Cerebellar: mild dysmetria with right finger to nose, grossly intact left side Lungs: clear, nonlabored breathing, no wheezing Heart: S1, S2 Skin: warm and dry, no cyanosis. Medications Current Medications THIS NOTE REPRESENGTS MY ENCOUNTER ON 03/16/17 DURING ROUNDS Current Medications Iohexol (Omnipaque 350 Inj) 70 ml STK-MED ONCE IVCONTRAST Last administered on 03/05/17at 20:00; Start 03/05/17 at 20:00; Stop 03/05/17 at 20:06; Status DC Nitroglycerin (Nitroglycerin 2% Oint) 1 inch ONCE ONCE TOPICAL Last administered on 03/05/17at 21:59; Start 03/05/17 at 21:00; Stop 03/05/17 at 21:01 ; Status DC Sodium Chloride (NS Flush) 2 ml UNSCH PRN IV FLUSH FLUSH AFTER USING IV ACCESS ; Start 03/05/17 at 22:00 Sodium Chloride (NS Flush) 2 ml BID IV FLUSH Last administered on 03/18/17 08: 59; Start 03/06/17 at 09:00 Aspirin (Aspirin Chew) 81 mg DAILY CHEW Last administered on 03/18/17 08:59; Start 03/06/17 at 09:00; Stop 03/18/17 at 11:38; Status DC Atorvastatin Calcium (Lipitor) 80 mg HS PO Last administered on 03/17/17 20:35 ; Start 03/05/17 at 22:15 Finasteride (Proscar) 5 mg DAILY PO Last administered on 03/18/17 08:59; Start 03/06/17 at 09:00 Fluticasone/ Vilanterol (Breo Ellipta 200-25 Inh) 1 puff DAILY INH Last administered on 03/18/17 08:59; Start 03/06/17 at 09:00 Gabapentin (Neurontin) 300 mg BID PO Last administered on 03/18/17 08:58; Start 03/05/17 at 22:15 Lisinopril (Prinivil) 10 mg DAILY PO Last administered on 03/18/17 08:59; Start 03/06/17 at 09:00 Metoprolol Tartrate (Lopressor) 150 mg DAILY PO ; Start 03/06/17 at 09:00; Stop 03/06/17 at 09:00; Status DC Polyethylene Glycol (Miralax) 17 gm DAILY PO Last administered on 03/18/17 08: 59; Start 03/06/17 at 09:00 Prasugrel (Effient) 10 mg DAILY PO Last administered on 03/12/17at 08:51; Start 03/06/17 at 09:00; Status Future Hold Pantoprazole Sodium (Protonix) 40 mg DAILY PO Last administered on 03/18/17 08: 59; Start 03/06/17 at 09:00 Multivitamins (Theragran) 1 tab DAILY PO Last administered on 03/18/17 08:58; Start 03/06/17 at 09:00 Non-Formulary Medication 2 cap DAILY PO ; Start 03/06/17 at 09:00; Stop at 09:00; Status DC Albuterol Sulfate (Albuterol Neb) 2.5 mg Q4HR WHILE AWAKE NEB PRN NEB SHORTNESS OF BREATH Last administered on 03/17/17 12:36; Start 03/05/17 at 22:15 Albuterol/ Ipratropium (Duoneb Neb) 1 ampule Q4HR WHILE AWAKE NEB NEB Last administered on 03/06/17at 07:36; Start 03/06/17 at 08:00; Stop 03/06/17 at 09:30 ; Status DC Ondansetron HCl (Zofran Inj) 4 mg Q6HR PRN IV PUSH NAUSEA OR VOMITING Last administered on 03/17/17 20:32; Start 03/05/17 at 22:15 Acetaminophen (Tylenol) 325 mg Q4H PRN PO FEVER Last administered on 03/11/17 00:55; Start 03/05/17 at 22:15 Enalaprilat (Vasotec Inj) 1.25 mg Q6H PRN IV PUSH SBP>160, DBP>90; Start at 22:30; Stop 03/11/17 at 09:55; Status DC Metoprolol Tartrate (Lopressor) 50 mg Q12HR PO Last administered on 03/18/17 08 :59; Start 03/06/17 at 10:00 Montelukast Sodium (Singulair) 10 mg HS PO Last administered on 03/17/17 20:35 ; Start 03/06/17 at 21:00 Prednisone (Deltasone) 40 mg DAILY PO Last administered on 03/07/17 09:03; Start 03/06/17 at 09:00; Stop 03/07/17 at 09:30; Status DC Methylprednisolone Sodium Succinate (SoluMEDROL INJ) 40 mg Q8HR IV PUSH Last administered on 03/17/17 14:00; Start 03/07/17 at 14:00; Stop 03/17/17 at 19:52; Status DC Iohexol (Omnipaque 350 Inj) 85 ml STK-MED ONCE IVCONTRAST Last administered on 03/07/17at 11:46; Start 03/07/17 at 11:46; Stop 03/07/17 at 11:47; Status DC Enoxaparin Sodium (Lovenox Inj) 40 mg Q24H SQ Last administered on 03/07/17at 15 :55; Start 03/07/17 at 15:00; Stop 03/11/17 at 11:12; Status DC Midazolam HCl (Versed Inj) 2 mg STK-MED ONCE .ROUTE Last administered on at 13:26; Start 03/08/17 at 13:26; Stop 03/08/17 at 13:27; Status DC Fentanyl Citrate (fentaNYL INJ) 100 mcg STK-MED ONCE .ROUTE Last administered on 03/08/17at 13:43; Start 03/08/17 at 13:43; Stop 03/08/17 at 13:44; Status DC Fentanyl Citrate (fentaNYL INJ) 100 mcg STK-MED ONCE .ROUTE Last administered on 03/08/17at 13:43; Start 03/08/17 at 13:43; Stop 03/08/17 at 13:44; Status DC Cefazolin Sodium/ Dextrose 50 ml @ As Directed STK-MED ONCE .ROUTE Last administered on 03/08/17at 14:48; Start 03/08/17 at 14:48; Stop 03/08/17 at 14:49 ; Status DC Midazolam HCl (Versed Inj) 2 mg STK-MED ONCE .ROUTE Last administered on at 14:20; Start 03/08/17 at 15:03; Stop 03/08/17 at 15:04; Status DC Iohexol (Omnipaque 350 Inj) 40 ml STK-MED ONCE OTHER Last administered on at 15:14; Start 03/08/17 at 15:14; Stop 03/08/17 at 15:15; Status DC Heparin Sodium (Porcine) (Heparin Inj) 10,000 units STK-MED ONCE .ROUTE Last administered on 03/09/17at 12:20; Start 03/09/17 at 09:15; Stop 03/09/17 at 09:16 ; Status DC Protamine Sulfate (Protamine Sulfate Inj) 50 mg STK-MED ONCE .ROUTE ; Start at 09:16; Stop 03/09/17 at 09:17; Status DC Lactated Ringer's 1,000 ml @ 30 mls/hr Q24H PRN IV SEE LABEL COMMENTS; Start at 11:15; Stop 03/12/17 at 11:14; Status DC Sodium Chloride 500 ml @ 30 mls/hr [id number] PRN IV SEE LABEL COMMENTS; Start at 11:15; Stop 03/12/17 at 11:14; Status DC Metoprolol Tartrate (Lopressor) 25 mg [employer] PRN PO SEE LABEL COMMENTS; Start 03/09/17 at 11:15; Stop 03/12/17 at 11:14; Status DC Povidone Iodine (Betadine 5% Antisepsis Kit) 1 applic [employer] PRN EACH NARE SEE LABEL COMMENTS; Start 03/09/17 at 11:15; Stop 03/12/17 at 11:14; Status DC Chlorhexidine Gluconate (Chlorhexidine 2% Cloth) 3 pack [employer] PRN TOPICAL SEE LABEL COMMENTS; Start 03/09/17 at 11:15; Stop 03/12/17 at 11:14; Status DC Cefazolin Sodium (Ancef Inj) 2,000 mg ONCE ONCE IV Last administered on at 11:43; Start 03/09/17 at 12:16; Stop 03/09/17 at 12:54; Status DC Fentanyl Citrate (fentaNYL INJ) 500 mcg STK-MED ONCE .ROUTE ; Start 03/09/17 at 15:07; Stop 03/09/17 at 15:08; Status DC Morphine Sulfate (*morphine INJ PERIprocedure ONLY) 4 mg STK-MED ONCE .ROUTE Last administered on 03/09/17at 15:35; Start 03/09/17 at 15:35; Stop 03/09/17 at 15:36; Status DC Morphine Sulfate (*morphine INJ PERIprocedure ONLY) 4 mg STK-MED ONCE .ROUTE Last administered on 03/09/17at 15:59; Start 03/09/17 at 15:59; Stop 03/09/17 at 16:00; Status DC Morphine Sulfate (Morphine Inj) 4 mg Q3H PRN IV PUSH 6-10 Last administered on 03/13/17at 09:57; Start 03/09/17 at 16:30 Oxycodone/ Acetaminophen (Percocet 5-325 Mg) 1 tab Q4H PRN PO 3-5 Last administered on 03/16/17at 23:18; Start 03/09/17 at 16:30 Clopidogrel Bisulfate (Plavix) 75 mg DAILY PO ; Start 03/10/17 at 09:00; Stop at 09:00; Status DC Miscellaneous Information ALL NURSING DEPARTME... UNSCH PRN .XX SEE LABEL COMMENTS; Start 03/09/17 at 15:01; Stop 03/10/17 at 15:00; Status DC Sodium Chloride 1,000 ml @ 100 mls/hr Q10H IV Last administered on 03/11/17at 06:13; Start 03/10/17 at 11:00; Stop 03/11/17 at 09:55; Status DC Furosemide (Lasix Inj) 80 mg STK-MED ONCE .ROUTE ; Start 03/11/17 at 09:50; Stop 03/11/17 at 09:51; Status DC Furosemide (Lasix Inj) 80 mg ONCE ONCE IV PUSH Last administered on 03/11/17at 10:30; Start 03/11/17 at 10:30; Stop 03/11/17 at 10:31; Status DC Heparin Sodium/ Dextrose 250 ml @ 18 mls/hr TITRATE PRN IV Coagulation Management; Start 03/11/17 at 10:45; Stop 03/11/17 at 16:09; Status DC Albuterol/ Ipratropium (Duoneb Neb) 1 ampule QID NEB INH Last administered on 03/15/17at 12:42; Start 03/11/17 at 16:00; Stop 03/15/17 at 15:59; Status DC Enoxaparin Sodium (Lovenox Inj) 40 mg Q24H SQ Last administered on 03/13/17at 16 :35; Start 03/11/17 at 16:00; Stop 03/14/17 at 07:53; Status DC Furosemide (Lasix Inj) 80 mg ONCE ONCE IV PUSH Last administered on 03/11/17at 19:31; Start 03/11/17 at 18:45; Stop 03/11/17 at 18:46; Status DC Potassium Chloride (KCl) 40 meq ONCE ONCE PO Last administered on 03/11/17at 21 :00; Start 03/11/17 at 21:00; Stop 03/11/17 at 21:46; Status DC Potassium Chloride 100 ml @ 50 mls/hr BOLUS ONCE IV Last administered on 03/11at 22:00; Start 03/11/17 at 22:00; Stop 03/11/17 at 23:59; Status DC Furosemide (Lasix Inj) 80 mg ONCE ONCE IV PUSH Last administered on 03/12/17at 19:42; Start 03/12/17 at 18:45; Stop 03/12/17 at 18:46; Status DC Lactated Ringer's 2,000 ml @ As Directed STK-MED ONCE IV ; Start 03/09/17 at 12 :00; Stop 03/13/17 at 15:41; Status DC Lidocaine HCl (Xylocaine-Mpf 1% Inj) 5 ml STK-MED ONCE OTHER ; Start 03/09/17 at 12:00; Stop 03/13/17 at 15:41; Status DC Rocuronium [place] (Zemuron Inj) 50 mg STK-MED ONCE IV PUSH ; Start 03/09/17 at 12:00; Stop 03/13/17 at 15:41; Status DC Neostigmine Methylsulfate (Prostigmine Inj) 5 mg STK-MED ONCE IV PUSH ; Start at 12:00; Stop 03/13/17 at 15:41; Status DC Glycopyrrolate (Robinul Inj) 1 mg STK-MED ONCE IV PUSH ; Start 03/09/17 at 12:00 ; Stop 03/13/17 at 15:41; Status DC Dexamethasone Sodium Phosphate (Decadron Inj) 8 mg STK-MED ONCE IV Last administered on 03/09/17at 12:00; Start 03/09/17 at 12:00; Stop 03/13/17 at 15:41 ; Status DC Ondansetron HCl (Zofran Inj) 4 mg STK-MED ONCE IV PUSH ; Start 03/09/17 at 12:00 ; Stop 03/13/17 at 15:41; Status DC Propofol (Diprivan 200 Mg/20 ml Inj) 200 mg STK-MED ONCE IV ; Start 03/09/17 at 12:00; Stop 03/13/17 at 15:41; Status DC Melatonin (Melatonin) 5 mg ONCE ONCE PO Last administered on 03/13/17at 18:00; Start 03/13/17 at 18:00; Stop 03/13/17 at 18:01; Status DC Epinephrine HCl (EPINEPHrine (1:10,000) INJ) 1 mg STK-MED ONCE .ROUTE ; Start at 21:43; Stop 03/13/17 at 21:44; Status DC Atropine Sulfate (Atropine Inj) 1 mg STK-MED ONCE .ROUTE ; Start 03/13/17 at 21: 44; Stop 03/13/17 at 21:45; Status DC Gadodiamide (Omniscan Pf Inj) 20 ml STK-MED ONCE IV PUSH Last administered on at 22:50; Start 03/13/17 at 22:50; Stop 03/13/17 at 22:51; Status DC Iohexol (Omnipaque 350 Inj) 74 ml STK-MED ONCE IVCONTRAST Last administered on 03/14/17at 10:48; Start 03/14/17 at 10:48; Stop 03/14/17 at 10:49; Status DC Senna/Docusate Sodium (Arleth-Colace) 1 tab BID PO Last administered on 03/18/17at 08:58; Start 03/14/17 at 12:30 Magnesium Hydroxide (Milk Of Magnesia Liq) 30 ml Q12H PRN PO Mild constipation Last administered on 03/14/17at 15:23; Start 03/14/17 at 12:30 Sennosides (Senokot) 17.2 mg Q12H PRN PO Moderate constipation; Start 03/14/17 at 12:30 Bisacodyl (Dulcolax Supp) 10 mg DAILY PRN RECTAL SEVERE CONSITIPATION; Start at 12:30 Lactulose (Lactulose Liq) 30 ml DAILY PRN PO SEVERE CONSITIPATION Last administered on 03/14/17at 15:23; Start 03/14/17 at 12:30 Sodium Biphosphate/ Sodium Phosphate (Fleets Enema (Adult)) 133 ml ONCE ONCE RECTAL Last administered on 03/16/17at 10:20; Start 03/16/17 at 09:15; Stop at 09:42; Status DC Citalopram Hydrobromide (CeleXA) 20 mg DAILY PO ; Start 03/16/17 at 09:15; Stop 03/16/17 at 09:15; Status DC Duloxetine HCl (Cymbalta Dr) 30 mg DAILY PO Last administered on 03/18/17at 08:58 ; Start 03/16/17 at 10:00 Pharmacy Profile Note 0 ml @ 0 mls/hr UNSCH OTHER ; Start 03/17/17 at 15:30 Piperacillin Sod/ Tazobactam Sod 100 ml @ 200 mls/hr Q6H IV Last administered on 03/18/17at 12:29; Start 03/17/17 at 18:00 Vancomycin HCl 1500 mg/Sodium Chloride 515 ml @ 257.5 mls/ hr Q12H IV ; Start 03/17/17 at 15:30; Status UNV Vancomycin HCl 1500 mg/Sodium Chloride 515 ml @ 257.5 mls/ hr Q12H IV Last administered on 03/18/17at 06:03; Start 03/17/17 at 17:00 Miscellaneous Information SPECIFIC LAB TO BE DAMARIS... ONCE ONCE .XX ; Start at 04:45; Stop 03/19/17 at 04:46 Methylprednisolone Sodium Succinate (SoluMEDROL INJ) 80 mg Q8HR IV PUSH Last administered on 03/18/17at 05:28; Start 03/17/17 at 22:00 Aspirin (Aspirin Chew) 162 mg DAILY CHEW ; Start 03/19/17 at 09:00 Heparin Sodium (Porcine) (Heparin Inj) 5,000 units BID SQ ; Start 03/19/17 at 09: 00 Medical Decision Making MDM Remarks THIS NOTE REPRESENGTS MY ENCOUNTER ON 03/16/17 DURING ROUNDS Last [address] 03/15/17 0800 Signed Impressions: Service Date/Time: Wednesday, March 15, 2017 08:11 - CONCLUSION: 1. Stable CT of the brain including prominent area of low-density in the right cerebellum could be an acute/subacute infarct. This is unchanged. 2. Old appearing small infarcts in the right parietal/occipital lobe and left cerebellum are stable. Bradley Simmons MD Neck CTA 03/14/17 0000 Signed Impressions: Service Date/Time: Tuesday, March 14, 2017 10:44 - CONCLUSION: Minimal calcific plaquing nonstenotic bilateral carotid bulbs and initial segment of the right internal carotid. Lakhwinder Adams MD Brain MRI 03/14/17 0000 Signed Impressions: Service Date/Time: Tuesday, March 14, 2017 19:56 - CONCLUSION: 1. No significant change in the appearance of large acute infarction involving the right cerebellum as well as the much smaller acute infarctions involving the right occipital lobe and left high parietal cortex. There is evidence of some hemorrhage within the right cerebellar infarct which is unchanged. 2. Scattered periventricular and subcortical white matter small vessel ischemic changes are noted bilaterally. 3. Old lacunar infarcts are noted within the bilateral basal ganglia and bilateral cerebellar hemispheres. Shai Thrasher MD Neck Magnetic Resonance Angiography [id number] Signed Impressions: Service Date/Time: Monday, March 13, 2017 21:58 - CONCLUSION: 1. No significant stenosis in the carotid arteries. Left vertebral artery is dominant. Adrián Caicedo MD Head Magnetic Resonance Angiography [id number] Signed Impressions: Service Date/Time: Monday, March 13, 2017 21:58 - CONCLUSION: 1. Patient within normal limits for age. Adrián Caicedo MD Head CT 03/13/17 1447 Signed Impressions: Service Date/Time: Monday, March 13, 2017 15:58 - CONCLUSION: 1. 3.5 x 3.6 cm low attenuation area in the right cerebellar hemisphere area most characteristic of edema which could be secondary to underlying mass or infarction. 2. Second smaller focal peripheral area of decreased attenuation involving the right parietal-occipital watershed region concern for edema as well. 3. Further evaluation with MRI imaging with and without contrast is recommended. Damion Gibbons MD Attending Statement THIS NOTE REPRESENGTS MY ENCOUNTER ON 03/16/17 DURING ROUNDS Cebellar infarction. Continue nonoperative treatment. I again reviewed CT 03/15. Currently assessing for cardiac arrythmya with holter. I also recommend a transesophageal echocardiogram I recommend a hypercoagulable workup Continue neuro checks in a serial fashion. Daily physical therapy and occupational Pulmonary. Continue aggressive pulmonary toilette, nasotracheal suction, and breathing treatments with nebulizers. Daily PT and OT Nutrition. Tolerating Oral diet Renal. Continue to monitor closely urine output, BUN and creatinine Endocrine. Continue to Monitor serial Acu checks and SSI as needed in detail ID continue to monitor for signs of infection Continue Protonix for stress ulcer prophylaxis Continue Vijay hose and SCD's for DVT prophylaxis Inder Tucker MD Mar 17, 2017 19:50
--- NOTE | 2017-03-17 19:51 | HHI.NSPN ---
Note Status Status: Progress Note Interval History Diagnosis cerebellar infarction Interval History Mr. Gallagher is a very pleasant 76 year old male. History was mostly obtained from his at bedside due to his severe dysarthria. His reports the patient presented to the ED on 03/05/2017 initially for shortness of breath. 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 They are currently here on vacation for 2 months. Initially he was found to have elevated D-dimers but an angiography was negative for pulmonary embolism. He was evaluated by vascular surgeon Dr. Hernandez. He is being managed nonoperatively for thoracic aortic aneurysm. However underwent a fempop bypass surgery on 03/09/2017 due to an occlusion. The reports following surgery in recovery the patient was speaking well and normally. The following day she noted some dysarthria but attributed it to his current shortness of breath. He had an episode of acute hypoxia with respiratory distress and was monitored in CVICU. His reports his oxygenation improved however his dysarthria did not and he was worked up for possible CVA. He underwent an MRI brain which showed an acute right cerebellar ischemic infarction with punctate infarcts in the right occipital and left parietal lobes. No hydrocephalus. The patient does report positive headaches as well as possible increase drowsiness. However he remains and appear to be awake and alert. He denies focal weakness, extremity paresthesias, vision changes. Neurosurgical evaluation was requested. 03/15: remains severely dysarthric, but awake and alert overnight, no acute mental status changes. f/u CT Head this morning with stable right cerebellar infarction, fourth ventricle open, no signs of hydrocephalus. 03/17. No neurological changes. No acute events overnight Labs, Micro, & Vital Signs Results Date Time Temp Pulse Resp B/P (MAP) Pulse Ox O2 Delivery O2 Flow Rate FiO2 03/17/17 17:55 3.00 03/17/17 15:41 97.6 66 16 108/69 (82) 93 03/17/17 15:30 Nasal Cannula 3.00 03/17/17 12:35 97 Nasal Cannula 4.00 03/17/17 12:00 67 03/17/17 12:00 98.4 71 21 109/67 (81) 100 03/17/17 08:00 98.2 64 15 131/70 (90) 99 03/17/17 08:00 62 03/17/17 07:27 99 40 03/17/17 07:15 98 Bi-Pap 40 03/17/17 04:00 97.5 62 16 127/67 (87) 97 03/17/17 04:00 62 03/17/17 03:00 61 03/17/17 00:00 97.3 67 13 131/84 (100) 98 03/16/17 23:00 97 40 03/16/17 23:00 70 03/16/17 20:10 95 Nasal Cannula 4.00 03/16/17 20:00 97.6 74 20 98/59 (72) 93 03/16/17 20:00 74 03/18/17 07:00 Output Total 225 ml Balance -225 ml Constitutional Vital Signs Date Time Temp Pulse Resp B/P (MAP) Pulse Ox O2 Delivery O2 Flow Rate FiO2 03/17/17 17:55 3.00 03/17/17 15:41 97.6 66 16 108/69 (82) 93 03/17/17 15:30 Nasal Cannula 3.00 03/17/17 12:35 97 Nasal Cannula 4.00 03/17/17 12:00 67 03/17/17 12:00 98.4 71 21 109/67 (81) 100 03/17/17 08:00 98.2 64 15 131/70 (90) 99 03/17/17 08:00 62 03/17/17 07:27 99 40 03/17/17 07:15 98 Bi-Pap 40 03/17/17 04:00 97.5 62 16 127/67 (87) 97 03/17/17 04:00 62 03/17/17 03:00 61 03/17/17 00:00 97.3 67 13 131/84 (100) 98 03/16/17 23:00 97 40 03/16/17 23:00 70 03/16/17 20:10 95 Nasal Cannula 4.00 03/16/17 20:00 97.6 74 20 98/59 (72) 93 03/16/17 20:00 74 03/18/17 07:00 Output Total 225 ml Balance -225 ml Physical Exam Mr. Gallagher is comfortable, in no obvious distress during examination. Speech is dysarthric Neuro: Awake, alert. Speech is severely dysarthric. Can follow single and multi -step commands without apraxia. Cranial nerve examination: pupils to be equal, round, and reactive to light. Extra-ocular movements are intact with normal convergence. Facial motor and sensory function are normal and symmetrical. Tongue protruded midline. HENT: Normocephalic, atraumatic. Gross hearing intact bilaterally. Eyes: Pupils 4 mm equal round. Extra-ocular movement intact. Nonicteric sclera. No nistagmus Neck: soft, supple Extremities moves grossly muscle groups of both upper extremities including deltoid, biceps, triceps and business technology architect. In the lower extremities exam limited he had gross proximal movement bilaterally, 4/5 distal lower extremity strength Sensory examination is intact light touch in both the upper and lower extremities Reflex: bilateral plantar flexion response. Cerebellar: mild dysmetria with right finger to nose, grossly intact left side Lungs: clear, nonlabored breathing, no wheezing Heart: S1, S2 Skin: warm and dry, no cyanosis. Medications Current Medications Current Medications Iohexol (Omnipaque 350 Inj) 70 ml STK-MED ONCE IVCONTRAST Last administered on 03/05/17at 20:00; Start 03/05/17 at 20:00; Stop 03/05/17 at 20:06; Status DC Nitroglycerin (Nitroglycerin 2% Oint) 1 inch ONCE ONCE TOPICAL Last administered on 03/05/17at 21:59; Start 03/05/17 at 21:00; Stop 03/05/17 at 21:01 ; Status DC Sodium Chloride (NS Flush) 2 ml UNSCH PRN IV FLUSH FLUSH AFTER USING IV ACCESS ; Start 03/05/17 at 22:00 Sodium Chloride (NS Flush) 2 ml BID IV FLUSH Last administered on 03/17/17at 09: 27; Start 03/06/17 at 09:00 Aspirin (Aspirin Chew) 81 mg DAILY CHEW Last administered on 03/17/17 09:27; Start 03/06/17 at 09:00 Atorvastatin Calcium (Lipitor) 80 mg HS PO Last administered on 03/16/17at 20:19 ; Start 03/05/17 at 22:15 Finasteride (Proscar) 5 mg DAILY PO Last administered on 03/17/17 09:27; Start 03/06/17 at 09:00 Fluticasone/ Vilanterol (Breo Ellipta 200-25 Inh) 1 puff DAILY INH Last administered on 03/17/17 09:28; Start 03/06/17 at 09:00 Gabapentin (Neurontin) 300 mg BID PO Last administered on 03/17/17 09:27; Start 03/05/17 at 22:15 Lisinopril (Prinivil) 10 mg DAILY PO Last administered on 03/17/17 09:27; Start 03/06/17 at 09:00 Metoprolol Tartrate (Lopressor) 150 mg DAILY PO ; Start 03/06/17 at 09:00; Stop 03/06/17 at 09:00; Status DC Polyethylene Glycol (Miralax) 17 gm DAILY PO Last administered on 03/17/17 09: 27; Start 03/06/17 at 09:00 Prasugrel (Effient) 10 mg DAILY PO Last administered on 03/12/17 08:51; Start 03/06/17 at 09:00; Status Future Hold Pantoprazole Sodium (Protonix) 40 mg DAILY PO Last administered on 03/17/17 09: 27; Start 03/06/17 at 09:00 Multivitamins (Theragran) 1 tab DAILY PO Last administered on 03/17/17 09:27; Start 03/06/17 at 09:00 Non-Formulary Medication 2 cap DAILY PO ; Start 03/06/17 at 09:00; Stop at 09:00; Status DC Albuterol Sulfate (Albuterol Neb) 2.5 mg Q4HR WHILE AWAKE NEB PRN NEB SHORTNESS OF BREATH Last administered on 03/17/17 12:36; Start 03/05/17 at 22:15 Albuterol/ Ipratropium (Duoneb Neb) 1 ampule Q4HR WHILE AWAKE NEB NEB Last administered on 03/06/17 07:36; Start 03/06/17 at 08:00; Stop 03/06/17 at 09:30 ; Status DC Ondansetron HCl (Zofran Inj) 4 mg Q6HR PRN IV PUSH NAUSEA OR VOMITING Last administered on 03/10/17at 10:46; Start 03/05/17 at 22:15 Acetaminophen (Tylenol) 325 mg Q4H PRN PO FEVER Last administered on 03/11/17at 00:55; Start 03/05/17 at 22:15 Enalaprilat (Vasotec Inj) 1.25 mg Q6H PRN IV PUSH SBP>160, DBP>90; Start at 22:30; Stop 03/11/17 at 09:55; Status DC Metoprolol Tartrate (Lopressor) 50 mg Q12HR PO Last administered on 03/17/17 09 :27; Start 03/06/17 at 10:00 Montelukast Sodium (Singulair) 10 mg HS PO Last administered on 03/16/17 20:19 ; Start 03/06/17 at 21:00 Prednisone (Deltasone) 40 mg DAILY PO Last administered on 03/07/17 09:03; Start 03/06/17 at 09:00; Stop 03/07/17 at 09:30; Status DC Methylprednisolone Sodium Succinate (SoluMEDROL INJ) 40 mg Q8HR IV PUSH Last administered on 03/17/17 14:00; Start 03/07/17 at 14:00; Stop 03/17/17 at 19:52; Status DC Iohexol (Omnipaque 350 Inj) 85 ml STK-MED ONCE IVCONTRAST Last administered on 03/07/17at 11:46; Start 03/07/17 at 11:46; Stop 03/07/17 at 11:47; Status DC Enoxaparin Sodium (Lovenox Inj) 40 mg Q24H SQ Last administered on 03/07/17at 15 :55; Start 03/07/17 at 15:00; Stop 03/11/17 at 11:12; Status DC Midazolam HCl (Versed Inj) 2 mg STK-MED ONCE .ROUTE Last administered on 13:26; Start 03/08/17 at 13:26; Stop 03/08/17 at 13:27; Status DC Fentanyl Citrate (fentaNYL INJ) 100 mcg STK-MED ONCE .ROUTE Last administered on 03/08/17 13:43; Start 03/08/17 at 13:43; Stop 03/08/17 at 13:44; Status DC Fentanyl Citrate (fentaNYL INJ) 100 mcg STK-MED ONCE .ROUTE Last administered on 03/08/17at 13:43; Start 03/08/17 at 13:43; Stop 03/08/17 at 13:44; Status DC Cefazolin Sodium/ Dextrose 50 ml @ As Directed STK-MED ONCE .ROUTE Last administered on 03/08/17at 14:48; Start 03/08/17 at 14:48; Stop 03/08/17 at 14:49 ; Status DC Midazolam HCl (Versed Inj) 2 mg STK-MED ONCE .ROUTE Last administered on at 14:20; Start 03/08/17 at 15:03; Stop 03/08/17 at 15:04; Status DC Iohexol (Omnipaque 350 Inj) 40 ml STK-MED ONCE OTHER Last administered on at 15:14; Start 03/08/17 at 15:14; Stop 03/08/17 at 15:15; Status DC Heparin Sodium (Porcine) (Heparin Inj) 10,000 units STK-MED ONCE .ROUTE Last administered on 03/09/17at 12:20; Start 03/09/17 at 09:15; Stop 03/09/17 at 09:16 ; Status DC Protamine Sulfate (Protamine Sulfate Inj) 50 mg STK-MED ONCE .ROUTE ; Start at 09:16; Stop 03/09/17 at 09:17; Status DC Lactated Ringer's 1,000 ml @ 30 mls/hr Q24H PRN IV SEE LABEL COMMENTS; Start at 11:15; Stop 03/12/17 at 11:14; Status DC Sodium Chloride 500 ml @ 30 mls/hr [id number] PRN IV SEE LABEL COMMENTS; Start at 11:15; Stop 03/12/17 at 11:14; Status DC Metoprolol Tartrate (Lopressor) 25 mg FURNITURE [employer]DER PRN PO SEE LABEL COMMENTS; Start 03/09/17 at 11:15; Stop 03/12/17 at 11:14; Status DC Povidone Iodine (Betadine 5% Antisepsis Kit) 1 applic [employer]URNITURE [employer] PRN EACH NARE SEE LABEL COMMENTS; Start 03/09/17 at 11:15; Stop 03/12/17 at 11:14; Status DC Chlorhexidine Gluconate (Chlorhexidine 2% Cloth) 3 pack [employer]URNIT[employer] PRN TOPICAL SEE LABEL COMMENTS; Start 03/09/17 at 11:15; Stop 03/12/17 at 11:14; Status DC Cefazolin Sodium (Ancef Inj) 2,000 mg ONCE ONCE IV Last administered on at 11:43; Start 03/09/17 at 12:16; Stop 03/09/17 at 12:54; Status DC Fentanyl Citrate (fentaNYL INJ) 500 mcg STK-MED ONCE .ROUTE ; Start 03/09/17 at 15:07; Stop 03/09/17 at 15:08; Status DC Morphine Sulfate (*morphine INJ PERIprocedure ONLY) 4 mg STK-MED ONCE .ROUTE Last administered on 03/09/17at 15:35; Start 03/09/17 at 15:35; Stop 03/09/17 at 15:36; Status DC Morphine Sulfate (*morphine INJ PERIprocedure ONLY) 4 mg STK-MED ONCE .ROUTE Last administered on 03/09/17at 15:59; Start 03/09/17 at 15:59; Stop 03/09/17 at 16:00; Status DC Morphine Sulfate (Morphine Inj) 4 mg Q3H PRN IV PUSH 6-10 Last administered on 03/13/17at 09:57; Start 03/09/17 at 16:30 Oxycodone/ Acetaminophen (Percocet 5-325 Mg) 1 tab Q4H PRN PO 3-5 Last administered on 03/16/17at 23:18; Start 03/09/17 at 16:30 Clopidogrel Bisulfate (Plavix) 75 mg DAILY PO ; Start 03/10/17 at 09:00; Stop at 09:00; Status DC Miscellaneous Information ALL NURSING DEPARTME... UNSCH PRN .XX SEE LABEL COMMENTS; Start 03/09/17 at 15:01; Stop 03/10/17 at 15:00; Status DC Sodium Chloride 1,000 ml @ 100 mls/hr Q10H IV Last administered on 03/11/17at 06:13; Start 03/10/17 at 11:00; Stop 03/11/17 at 09:55; Status DC Furosemide (Lasix Inj) 80 mg STK-MED ONCE .ROUTE ; Start 03/11/17 at 09:50; Stop 03/11/17 at 09:51; Status DC Furosemide (Lasix Inj) 80 mg ONCE ONCE IV PUSH Last administered on 03/11/17at 10:30; Start 03/11/17 at 10:30; Stop 03/11/17 at 10:31; Status DC Heparin Sodium/ Dextrose 250 ml @ 18 mls/hr TITRATE PRN IV Coagulation Management; Start 03/11/17 at 10:45; Stop 03/11/17 at 16:09; Status DC Albuterol/ Ipratropium (Duoneb Neb) 1 ampule QID NEB INH Last administered on 03/15/17at 12:42; Start 03/11/17 at 16:00; Stop 03/15/17 at 15:59; Status DC Enoxaparin Sodium (Lovenox Inj) 40 mg Q24H SQ Last administered on 03/13/17at 16 :35; Start 03/11/17 at 16:00; Stop 03/14/17 at 07:53; Status DC Furosemide (Lasix Inj) 80 mg ONCE ONCE IV PUSH Last administered on 03/11/17at 19:31; Start 03/11/17 at 18:45; Stop 03/11/17 at 18:46; Status DC Potassium Chloride (KCl) 40 meq ONCE ONCE PO Last administered on 03/11/17at 21 :00; Start 03/11/17 at 21:00; Stop 03/11/17 at 21:46; Status DC Potassium Chloride 100 ml @ 50 mls/hr BOLUS ONCE IV Last administered on 03/11at 22:00; Start 03/11/17 at 22:00; Stop 03/11/17 at 23:59; Status DC Furosemide (Lasix Inj) 80 mg ONCE ONCE IV PUSH Last administered on 03/12/17at 19:42; Start 03/12/17 at 18:45; Stop 03/12/17 at 18:46; Status DC Lactated Ringer's 2,000 ml @ As Directed STK-MED ONCE IV ; Start 03/09/17 at 12 :00; Stop 03/13/17 at 15:41; Status DC Lidocaine HCl (Xylocaine-Mpf 1% Inj) 5 ml STK-MED ONCE OTHER ; Start 03/09/17 at 12:00; Stop 03/13/17 at 15:41; Status DC Rocuronium [place] (Zemuron Inj) 50 mg STK-MED ONCE IV PUSH ; Start 03/09/17 at 12:00; Stop 03/13/17 at 15:41; Status DC Neostigmine Methylsulfate (Prostigmine Inj) 5 mg STK-MED ONCE IV PUSH ; Start at 12:00; Stop 03/13/17 at 15:41; Status DC Glycopyrrolate (Robinul Inj) 1 mg STK-MED ONCE IV PUSH ; Start 03/09/17 at 12:00 ; Stop 03/13/17 at 15:41; Status DC Dexamethasone Sodium Phosphate (Decadron Inj) 8 mg STK-MED ONCE IV Last administered on 03/09/17at 12:00; Start 03/09/17 at 12:00; Stop 03/13/17 at 15:41 ; Status DC Ondansetron HCl (Zofran Inj) 4 mg STK-MED ONCE IV PUSH ; Start 03/09/17 at 12:00 ; Stop 03/13/17 at 15:41; Status DC Propofol (Diprivan 200 Mg/20 ml Inj) 200 mg STK-MED ONCE IV ; Start 03/09/17 at 12:00; Stop 03/13/17 at 15:41; Status DC Melatonin (Melatonin) 5 mg ONCE ONCE PO Last administered on 03/13/17at 18:00; Start 03/13/17 at 18:00; Stop 03/13/17 at 18:01; Status DC Epinephrine HCl (EPINEPHrine (1:10,000) INJ) 1 mg STK-MED ONCE .ROUTE ; Start at 21:43; Stop 03/13/17 at 21:44; Status DC Atropine Sulfate (Atropine Inj) 1 mg STK-MED ONCE .ROUTE ; Start 03/13/17 at 21: 44; Stop 03/13/17 at 21:45; Status DC Gadodiamide (Omniscan Pf Inj) 20 ml STK-MED ONCE IV PUSH Last administered on at 22:50; Start 03/13/17 at 22:50; Stop 03/13/17 at 22:51; Status DC Iohexol (Omnipaque 350 Inj) 74 ml STK-MED ONCE IVCONTRAST Last administered on 03/14/17at 10:48; Start 03/14/17 at 10:48; Stop 03/14/17 at 10:49; Status DC Senna/Docusate Sodium (Arleth-Colace) 1 tab BID PO Last administered on 03/17/17at 09:27; Start 03/14/17 at 12:30 Magnesium Hydroxide (Milk Of Magnesia Liq) 30 ml Q12H PRN PO Mild constipation Last administered on 03/14/17at 15:23; Start 03/14/17 at 12:30 Sennosides (Senokot) 17.2 mg Q12H PRN PO Moderate constipation; Start 03/14/17 at 12:30 Bisacodyl (Dulcolax Supp) 10 mg DAILY PRN RECTAL SEVERE CONSITIPATION; Start at 12:30 Lactulose (Lactulose Liq) 30 ml DAILY PRN PO SEVERE CONSITIPATION Last administered on 03/14/17at 15:23; Start 03/14/17 at 12:30 Sodium Biphosphate/ Sodium Phosphate (Fleets Enema (Adult)) 133 ml ONCE ONCE RECTAL Last administered on 03/16/17at 10:20; Start 03/16/17 at 09:15; Stop at 09:42; Status DC Citalopram Hydrobromide (CeleXA) 20 mg DAILY PO ; Start 03/16/17 at 09:15; Stop 03/16/17 at 09:15; Status DC Duloxetine HCl (Cymbalta Dr) 30 mg DAILY PO Last administered on 03/17/17at 09:26 ; Start 03/16/17 at 10:00 Pharmacy Profile Note 0 ml @ 0 mls/hr UNSCH OTHER ; Start 03/17/17 at 15:30 Piperacillin Sod/ Tazobactam Sod 100 ml @ 200 mls/hr Q6H IV Last administered on 03/17/17at 19:10; Start 03/17/17 at 18:00 Vancomycin HCl 1500 mg/Sodium Chloride 515 ml @ 257.5 mls/ hr Q12H IV ; Start 03/17/17 at 15:30; Status UNV Vancomycin HCl 1500 mg/Sodium Chloride 515 ml @ 257.5 mls/ hr Q12H IV Last administered on 03/17/17at 17:04; Start 03/17/17 at 17:00 Miscellaneous Information SPECIFIC LAB TO BE DAMARSI... ONCE ONCE .XX ; Start at 04:45; Stop 03/19/17 at 04:46 Methylprednisolone Sodium Succinate (SoluMEDROL INJ) 80 mg Q8HR IV PUSH ; Start 03/17/17 at 22:00 Medical Decision Making MDM Remarks Last [address] 03/15/17 0800 Signed Impressions: Service Date/Time: Wednesday, March 15, 2017 08:11 - CONCLUSION: 1. Stable CT of the brain including prominent area of low-density in the right cerebellum could be an acute/subacute infarct. This is unchanged. 2. Old appearing small infarcts in the right parietal/occipital lobe and left cerebellum are stable. Bradley Simmons MD Neck CTA 03/14/17 0000 Signed Impressions: Service Date/Time: Tuesday, March 14, 2017 10:44 - CONCLUSION: Minimal calcific plaquing nonstenotic bilateral carotid bulbs and initial segment of the right internal carotid. Lakhwinder Adams MD Brain MRI 03/14/17 0000 Signed Impressions: Service Date/Time: Tuesday, March 14, 2017 19:56 - CONCLUSION: 1. No significant change in the appearance of large acute infarction involving the right cerebellum as well as the much smaller acute infarctions involving the right occipital lobe and left high parietal cortex. There is evidence of some hemorrhage within the right cerebellar infarct which is unchanged. 2. Scattered periventricular and subcortical white matter small vessel ischemic changes are noted bilaterally. 3. Old lacunar infarcts are noted within the bilateral basal ganglia and bilateral cerebellar hemispheres. Shai Thrasher MD Neck Magnetic Resonance Angiography [id number]/13/[id number] Signed Impressions: Service Date/Time: Monday, March 13, 2017 21:58 - CONCLUSION: 1. No significant stenosis in the carotid arteries. Left vertebral artery is dominant. Adrián Caicedo MD Head Magnetic Resonance Angiography [id number]/13/[id number] Signed Impressions: Service Date/Time: Monday, March 13, 2017 21:58 - CONCLUSION: 1. Patient within normal limits for age. Adrián Caicedo MD Head CT 03/13/17 1447 Signed Impressions: Service Date/Time: Monday, March 13, 2017 15:58 - CONCLUSION: 1. 3.5 x 3.6 cm low attenuation area in the right cerebellar hemisphere area most characteristic of edema which could be secondary to underlying mass or infarction. 2. Second smaller focal peripheral area of decreased attenuation involving the right parietal-occipital watershed region concern for edema as well. 3. Further evaluation with MRI imaging with and without contrast is recommended. Damion Gibbons MD Attending Statement Cebellar[address] infarction[address] 03/15 was stable. Can transfer to neurosurgical floor 5N. I do not recommend general population in another floor Holter completed. Cardiology recommend anticoagulation, under their responsibility. hypercoagulable workup ? Neuro. Continue neuro checks in a serial fashion. Physical therapy and occupational therapy evaluation Pulmonary. Continue aggressive pulmonary toilette, nasotracheal suction, and breathing treatments with nebulizers. Daily PT and OT Nutrition. Tolerating Oral diet Renal. Continue to monitor closely urine output, BUN and creatinine Endocrine. Continue to Monitor serial Acu checks and SSI as needed in detail ID continue to monitor for signs of infection Continue Protonix for stress ulcer prophylaxis Continue Vijay cuellar and SCD's for DVT prophylaxis Inder Tucker MD Mar 17, 2017 19:51
[2017-03-17] MEDS: ONDANSETRON HCL 4 MG/2 ML VIAL IV PUSH PRN (20:32)
[2017-03-17] MEDS: MONTELUKAST SODIUM 10 MG TAB PO SCH (20:35)
[2017-03-17] MEDS: ATORVASTATIN 80 MG TAB PO SCH (20:35)
[2017-03-18] VITALS (14 sets, daily range): BP systolic 117–134; BP diastolic 73–81; PULSE 53–84; RESP 17–22; TEMP 97–98; O2SAT 90–96
[2017-03-18] MEDS: PIPERACIL-TAZO 4.5 GM PREMIX 100 ML IV SCH ×5 (00:36→23:00)
[2017-03-18 03:52] LABS: ANTI-THROMBIN III ACT 121 (80-120)
[2017-03-18] MEDS: methylPREDNISolone SOD SUCC 40 MG/1 ML VIAL IV PUSH SCH ×3 (05:28→20:51)
[2017-03-18] MEDS: VANCOMYCIN 1,500 MG/NS 500 ML IV SCH ×4 (06:03→18:23)
--- NOTE | 2017-03-18 07:14 | HHI.FPPN ---
Subjective Remarks No acute events overnight. Pt was asleep this morning on BiPAP. He has no complaints this AM. Last BM was 2 days ago with Fleets enema. He has urinary catheter removed yesterday with successful voiding. He denies CP, SOB, abdominal pain, and N/V. Objective Vitals Vital Signs Date Time Temp Pulse Resp B/P (MAP) Pulse Ox O2 Delivery O2 Flow Rate FiO2 03/18/17 04:15 96 60 03/18/17 04:00 97.9 61 22 117/77 (90) 96 03/18/17 01:35 95 60 03/18/17 00:00 97.9 73 22 127/81 (96) 94 03/18/17 00:00 84 03/17/17 22:50 94 60 03/17/17 21:40 92 40 03/17/17 21:30 92 Nasal Cannula 4.00 03/17/17 20:00 Nasal Cannula 4.00 03/17/17 20:00 97.7 75 22 142/75 (97) 93 03/17/17 17:55 3.00 03/17/17 15:41 97.6 66 16 108/69 (82) 93 03/17/17 15:30 Nasal Cannula 3.00 03/17/17 12:35 97 Nasal Cannula 4.00 03/17/17 12:00 67 03/17/17 12:00 98.4 71 21 109/67 (81) 100 03/17/17 08:00 98.2 64 15 131/70 (90) 99 03/17/17 08:00 62 03/17/17 07:27 99 40 03/17/17 07:15 98 Bi-Pap 40 I/O 03/17/17 03/17/17 03/17/17 03/18/17 03/18/17 03/18/17 07:00 15:00 23:00 07:00 15:00 23:00 Intake Total 120 ml Output Total 925 ml 225 ml 550 ml Balance -925 ml -225 ml -430 ml Intake Oral 120 ml Output Urine Total 925 ml 225 ml 550 ml # Bowel Movements 1 1 Result Diagram: 03/17/17 0342 03/17/17 0342 Objective Remarks GENERAL: Elderly gentleman lying in bed currently on BiPAP, in no acute distress HEENT: Atraumatic, normocephalic with EOMI. No rhinorrhea. MMM. No visible LAD or JVD appreciated. RESPIRATORY: Clear to auscultation bilaterally with no CRW appreciated anteriorly. Patient currently on BiPAP. CARDIOVASCULAR: RRR, no m/r/g. Radial and DP pulses 2+ and symmetric bilaterally. Brisk capillary refill. ABDOMEN: Soft, nondistended, nontender with BS in all 4 quadrants. No masses appreciated. MUSCULOSKELETAL: No calf tenderness. No edema appreciated. LLE Femoropopliteal bypass incision sites, CDI bandages. Pulses 2+ b/l. Sensation intact b/l. Moving toes and legs b/l. SKIN: Essentially clear with no significant rash or lesions. Adequate skin turgor. NEUROLOGICAL: Grossly afocal, slurred speech, improved from prior exam. Patient does attempt to communicate verbally, however he primarily communicates through hand motions and yes/no questions due to the BiPAP. Procedures tPA therapy for thrombolysis of left SFA 03/08-03/09 A/P Assessment and Plan 76-year-old male s/p Fempop bypass surgery on 03/09 subsequently found to have acute right cerebellar infarct on 03/13. Patient is currently stable. Discharge Planning Pending clinical improvement Unclear timetable Will need OT/PT at rehab, plan to discuss with CM Problem List: (1) Cerebral infarction due to unspecified occlusion or stenosis of right cerebellar artery ICD Codes: I63.541 - Cerebral infarction due to unspecified occlusion or stenosis of right cerebellar artery Status: Acute Plan: -Neurology consulted, recs appreciated -Normally patient to be anticoagulated, however there is a hemorrhagic signed component to the imaging -Continue baby aspirin, Effient discontinued -Neurosurgery consulted, recs appreciated -CT head reviewed, nonoperative mgt -Hypercoagulable workup: Antithrombin elevated at 121 H, rest of workup pending -Cardiology consulted, recs appreciated. - SEAN: atrial septal aneurysm and PFO. PFO closure not recommended. Otherwise , unremarkable. -Continue PT/OT/ST Previous Workup: Patient with slurred speech on 03/[address] and MRI showing R cerebellar edema and infarction consistent with CVA. -Head CT: 3.5 x 3.6 cm low attenuation area in the right cerebellar hemisphere area most characteristic of edema which could be secondary to underlying mass or infarction. Second smaller focal peripheral area of decreased attenuation involving the right parietal occipital watershed region concerning for edema as well. Further evaluation with MRI recommended. -Brain MRI: Proximally 5cm infarct of the right cerebellar hemisphere with small punctate infarcts in the right occipital lobe and left parietal lobe. Remote lacunar infarcts of the right basal ganglia and cerebellum. -Head MRA: Patient within normal limits for age -Neck MRA: No significant stenosis in the carotid arteries. Left vertebral artery is dominant. -Neck CTA: Minimal calcific plaquing nonstenotic bilateral carotid bulbs and initial segment of the right internal carotid. -Repeat Brain MRI: no significant change in the appearance of large acute infarction involving the right cerebellum as well as the much smaller acute infarctions involving the right occipital lobe and left high parietal cortex. 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 -Thoracic aneurysm aneurysm will be managed medically and with close follow- up for imaging -Goal systolic blood pressure of less than 120 (5) Flash pulmonary edema ICD Codes: J81.0 - Acute pulmonary edema Status: Resolved Plan: -Pulmonology consulted, appreciate recommendations -Continue Methylprednisolone 40mg IV push q8hr, start to wean as tolerated -PFTs as outpatient -Pt now on 4L NC, wean as tolerated -Continue DuoNebs and incentive spirometry Previous workup: Chest x-ray on admission significant for bibasilar subsegmental atelectasis ACS workup on admission negative D-dimer elevated on admission to 2.51, CTA negative for PE but did show 4.3 cm ascending thoracic aortic aneurysm TSH WNL at 2.56 -Course complicated by flash pulmonary edema on 1/29/18 -Repeat 2-D echo with Doppler ordered by vascular surgery, demonstrated EF of 55 -50, doppler parameters consistent with impaired left ventricular relation ( grade 1 diastolic dysfunction) (6) Superficial femoral artery occlusion ICD Codes: I70.209 - Unspecified atherosclerosis of [place] arteries of extremities, unspecified extremity Status: Resolved Plan: -Patient status post left femoropopliteal bypass femoral endarterectomy popliteal endarterectomy and patch on 03/09 -Patient w/ hx of PAD (7) HTN (hypertension) ICD Codes: I10 - Essential (primary) hypertension Status: Chronic Plan: -Continue lisinopril 10 mg daily, metoprolol tartrate 50 mg PO BID -Vasotec 1.25 mg IV when necessary for systolic blood pressure greater than 160 , diastolic blood pressure greater than 90 -Goal systolic blood pressure of less than 120 due to thoracic aortic aneurysm (8) CAD (coronary artery disease) ICD Codes: I25.10 - Atherosclerotic heart disease of [place] coronary artery without angina pectoris Status: Chronic Plan: -Patient with known CAD, status post coronary stents placed in 2007 -Continue home atorvastatin 80 mg at night, ASA 81 mg daily (9) BPH (benign prostatic hyperplasia) ICD Codes: N40.0 - Benign prostatic hyperplasia without lower urinary tract symptoms Plan: Continue home finasteride 5 mg by mouth daily (10) Constipation ICD Codes: K59.00 - Constipation, unspecified Status: Acute Plan: BM 2 days ago after Fleet enema -Continue constipation protocol. (11) FEN Plan: Diet: Heart healthy diet with nectar thickened liquids Oral fluids only Replete electrolytes as needed Zofran as needed for nausea Tylenol as needed for fever Protonix for GI prophylaxis Problem Qualifiers (1) HTN (hypertension): Qualified Codes: I10 - Essential (primary) hypertension (2) CAD (coronary artery disease): Qualified Codes: I25.10 - Atherosclerotic heart disease of [place] coronary artery without angina pectoris (3) Constipation: Qualified Codes: K59.00 - Constipation, unspecified Kalyani Loaiza MD R1 Mar 18, 2017 07:14
[2017-03-18] MEDS: GABAPENTIN 300 MG CAP PO SCH ×2 (08:58→20:51)
[2017-03-18] MEDS: DULoxetine HCl DR 30 MG CAP PO SCH (08:58)
[2017-03-18] MEDS: DOCUSATE SODIUM 50 MG/SENNA 8.6 MG TAB PO SCH ×2 (08:58→20:51)
[2017-03-18] MEDS: MULTIVITAMIN TAB PO SCH (08:58)
[2017-03-18] MEDS: PANTOPRAZOLE SOD 40 MG DELAYED RELEASE TAB PO SCH (08:59)
[2017-03-18] MEDS: METOPROLOL TARTRATE 50 MG TAB PO SCH ×2 (08:59→20:51)
[2017-03-18] MEDS: LISINOPRIL 10 MG TAB PO SCH (08:59)
[2017-03-18] MEDS: ASPIRIN 81 MG CHEW TAB CHEW SCH (08:59)
[2017-03-18] MEDS: FLUTICASONE 200 MCG/VILANTEROL 25 MCG INHALER INH SCH (08:59)
[2017-03-18] MEDS: SODIUM CHLORIDE 0.9% FLUSH 10 ML FLUSH IV FLUSH SCH ×2 (08:59→20:52)
[2017-03-18] MEDS: POLYETHYLENE GLYCOL 17 GM PKG PO SCH (08:59)
[2017-03-18] MEDS: FINASTERIDE 5 MG TAB PO SCH (08:59)
[2017-03-18 09:37] LABS: AUTOMATED NEUTROPHIL # 19.5 TH/MM3 (1.8-7.7); BASOPHIL % 0.1 % (0.0-2.0); HEMATOCRIT 42.9 % (39.0-51.0); HEMOGLOBIN 14.1 GM/DL (13.0-17.0); LYMPH % 3.2 % (9.0-44.0); LYMPHOCYTE # 0.7 TH/MM3 (1.0-4.8); MEAN CELL VOLUME 86.5 FL (80.0-100.0); MEAN CORPUSCULAR HEMOGLOBIN 28.4 PG (27.0-34.0); MEAN CORPUSCULAR HGB CONC 32.9 % (32.0-36.0); MEAN PLATELET VOLUME 8.8 FL (7.0-11.0); MONO % 2.9 % (0.0-8.0); MONOCYTE # 0.6 TH/MM3 (0-0.9); NEUT % 93.8 % (16.0-70.0); PLATELET COUNT 152 TH/MM3 (150-450); RED BLOOD COUNT 4.96 MIL/MM3 (4.50-5.90); RED CELL DISTRIBUTION WIDTH 14.3 % (11.6-17.2); WHITE BLOOD COUNT 20.8 TH/MM3 (4.0-11.0)
[2017-03-18 10:16] LABS: ALBUMIN 2.7 GM/DL (3.4-5.0); AST (GOT) 29 U/L (15-37); BICARBONATE 25.7 MEQ/L (21.0-32.0); BLOOD UREA NITROGEN 35 MG/DL (7-18); CALCIUM 7.8 MG/DL (8.5-10.1); CHLORIDE 102 MEQ/L (98-107); CREATININE 0.89 MG/DL (0.60-1.30); GLOMERULAR FILTRATION RATE 83 ML/MIN (>89); GLUCOSE,RANDOM 98 MG/DL (74-106); MAGNESIUM 2.4 MG/DL (1.5-2.5); SODIUM (NA) 136 MEQ/L (136-145)
[2017-03-18 10:20] LABS: ALKALINE PHOSPHATASE 48 U/L (45-117); ALT (GPT) 40 U/L (12-78); TOTAL BILIRUBIN ADULT 1.1 MG/DL (0.2-1.0); TOTAL PROTEIN 5.9 GM/DL (6.4-8.2)
--- NOTE | 2017-03-18 11:37 | HHI.PR ---
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 cardiology suggests anticoagulation; future consideration once ich resolves; possibly in 2-4 weeks recs neuro stable repeat ct brain in 1-2 weeks, if stable, start coumadin therapy rehab placement (2) HTN (hypertension) ICD Codes: I10 - Essential (primary) hypertension Status: Chronic (3) CAD (coronary artery disease) ICD Codes: I25.10 - Atherosclerotic heart disease of [place] coronary artery without angina pectoris Status: Chronic Subjective Subjective Comments No acute events reported No headache No chest pain No dyspnea Active Medications Current Medications Medications (Trade) Dose Ordered Sig/[place] Route Start Time Stop Time Status Last Admin (NS Flush) 2 ml UNSCH PRN IV FLUSH 03/05/17 22:00 (NS Flush) 2 ml BID IV FLUSH 03/06/17 09:00 03/18/17 08:59 (Aspirin Chew) 81 mg DAILY CHEW 03/06/17 09:00 03/18/17 08:59 (Lipitor) 80 mg HS PO 03/05/17 22:15 03/17/17 20:35 (Proscar) 5 mg DAILY PO 03/06/17 09:00 03/18/17 08:59 (Breo Ellipta 200-25 Inh) 1 puff DAILY INH 03/06/17 09:00 03/18/17 08:59 (Neurontin) 300 mg BID PO 03/05/17 22:15 03/18/17 08:58 (Prinivil) 10 mg DAILY PO 03/06/17 09:00 03/18/17 08:59 (Miralax) 17 gm DAILY PO 03/06/17 09:00 03/18/17 08:59 (Effient) 10 mg DAILY PO 03/06/17 09:00 Future Hold 03/12/17 08:51 (Protonix) 40 mg DAILY PO 03/06/17 09:00 03/18/17 08:59 (Theragran) 1 tab DAILY PO 03/06/17 09:00 03/18/17 08:58 (Albuterol Neb) 2.5 mg Q4HR WHILE AWAKE NEB PRN NEB 03/05/17 22:15 03/17/17 12:36 (Zofran Inj) 4 mg Q6HR PRN IV PUSH 03/05/17 22:15 03/17/17 20:32 (Tylenol) 325 mg Q4H PRN PO 03/05/17 22:15 03/11/17 00:55 (Lopressor) 50 mg Q12HR PO 03/06/17 10:00 03/18/17 08:59 (Singulair) 10 mg HS PO 03/06/17 21:00 03/17/17 20:35 (Morphine Inj) 4 mg Q3H PRN IV PUSH 03/09/17 16:30 03/13/17 09:57 (Percocet 5-325 Mg) 1 tab Q4H PRN PO 03/09/17 16:30 03/16/17 23:18 (Arleth-Colace) 1 tab BID PO 03/14/17 12:30 03/18/17 08:58 (Milk Of Magnesia Liq) 30 ml Q12H PRN PO 03/14/17 12:30 03/14/17 15:23 (Senokot) 17.2 mg Q12H PRN PO 03/14/17 12:30 (Dulcolax Supp) 10 mg DAILY PRN RECTAL 03/14/17 12:30 (Lactulose Liq) 30 ml DAILY PRN PO 03/14/17 12:30 03/14/17 15:23 (Cymbalta Dr) 30 mg DAILY PO 03/16/17 10:00 03/18/17 08:58 Pharmacy Profile Note 0 ml @ 0 mls/hr UNSCH OTHER 03/17/17 15:30 Piperacillin Sod/ Tazobactam Sod 100 ml @ 200 mls/hr Q6H IV 03/17/17 18:00 03/18/17 05:28 Vancomycin HCl 1500 mg/Sodium Chloride 515 ml @ 257.5 mls/ hr Q12H IV 03/17/17 17:00 03/18/17 06:03 Miscellaneous Information SPECIFIC LAB TO BE DAMARIS... ONCE ONCE .XX 03/19/17 04:45 03/19/17 04:46 (SoluMEDROL INJ) 80 mg Q8HR IV PUSH 03/17/17 22:00 03/18/17 05:28 Allergies Allergies Coded Allergies chocolate flavor (Verified Allergy, Unknown, 03/05/17) milk (Verified Allergy, Unknown, 03/05/17) orange juice (Verified Allergy, Unknown, 03/05/17) peanut (Verified Allergy, Unknown, 03/05/17) Uncoded Allergies granulated sugar ( Allergy, Unknown, 03/05/17) Exam I&O / VS Vital Signs Date Time Temp Pulse Resp B/P (MAP) Pulse Ox O2 Delivery O2 Flow Rate FiO2 03/18/17 10:13 96 Nasal Cannula 4.00 03/18/17 08:03 97.0 59 18 127/80 (96) 96 03/18/17 08:00 Nasal Cannula 4.00 03/18/17 08:00 60 03/18/17 04:15 96 60 03/18/17 04:00 97.9 61 22 117/77 (90) 96 03/18/17 01:35 95 60 03/18/17 00:00 97.9 73 22 127/81 (96) 94 03/18/17 00:00 84 03/17/17 22:50 94 60 03/17/17 21:40 92 40 03/17/17 21:30 92 Nasal Cannula 4.00 03/17/17 20:00 Nasal Cannula 4.00 03/17/17 20:00 97.7 75 22 142/75 (97) 93 03/17/17 17:55 3.00 03/17/17 15:41 97.6 66 16 108/69 (82) 93 03/17/17 15:30 Nasal Cannula 3.00 03/17/17 12:35 97 Nasal Cannula 4.00 03/17/17 12:00 67 03/17/17 12:00 98.4 71 21 109/67 (81) 100 General: Alert and Oriented, No acute distress Exam Comments ox 2-3, follows, dysphonic, dysarthric speech, eomi, vff, ou 3mm sluggish, face sym, slow ff sarahi, joseph to gravity with lle weakness 3-4/5 Objective Micro and Labs Laboratory Tests Test 03/17/17 19:00 03/18/17 07:34 Urine Color YELLOW Urine Turbidity CLEAR Urine pH 5.0 Urine Specific [place] 1.024 Urine Protein NEG Urine Glucose (UA) NEG Urine Ketones NEG Urine Occult Blood MOD Urine Nitrite NEG Urine Bilirubin NEG Urine Urobilinogen LESS THAN 2.0 Urine Leukocyte Esterase MOD Urine RBC 22 Urine WBC 3 Urine WBC Clumps RARE Urine Squamous Epithelial Cells 1 Urine Bacteria RARE Urine Mucus FEW Microscopic Urinalysis Comment CATH-CULTURE IND White Blood Count 20.8 Red Blood Count 4.96 Hemoglobin 14.1 Hematocrit 42.9 Mean Corpuscular Volume 86.5 Mean Corpuscular Hemoglobin 28.4 Mean Corpuscular Hemoglobin Concent 32.9 Red Cell Distribution Width 14.3 Platelet Count 152 Mean Platelet Volume 8.8 Neutrophils (%) (Auto) 93.8 Lymphocytes (%) (Auto) 3.2 Monocytes (%) (Auto) 2.9 Eosinophils (%) (Auto) 0.0 Basophils (%) (Auto) 0.1 Neutrophils # (Auto) 19.5 Lymphocytes # (Auto) 0.7 Monocytes # (Auto) 0.6 Eosinophils # (Auto) 0.0 Basophils # (Auto) 0.0 CBC Comment DIFF FINAL Differential Comment Blood Urea Nitrogen 35 Creatinine 0.89 Random Glucose 98 Total Protein 5.9 Albumin 2.7 Calcium Level 7.8 Magnesium Level 2.4 Alkaline Phosphatase 48 Aspartate Amino Transf (AST/SGOT) 29 Alanine Aminotransferase (ALT/SGPT) 40 Total Bilirubin 1.1 Sodium Level 136 Potassium Level 4.6 Chloride Level 102 Carbon Dioxide Level 25.7 Anion Gap 8 Estimat Glomerular Filtration Rate 83 Date/Time Source Procedure Growth Status 03/17/17 16:39 Blood Peripheral Aerobic Blood Culture - Preliminary NO GROWTH IN 1 DAY Resulted 03/17/17 16:39 Blood Peripheral Anaerobic Blood Culture - Preliminary NO GROWTH IN 1 DAY Resulted 03/05/17 17:47 Nasal Aspirate Influenza Types A,B Antigen (ASTER) - Final NEGATIVE FOR FLU A AND B ANTIGEN.... Complete 03/17/17 19:00 Urine Clean Catch Urine Culture Pending Received Problem Qualifiers (1) HTN (hypertension): Qualified Codes: I10 - Essential (primary) hypertension (2) CAD (coronary artery disease): Qualified Codes: I25.10 - Atherosclerotic heart disease of [place] coronary artery without angina pectoris Garth Gonsalez MD Mar 18, 2017 11:37
--- NOTE | 2017-03-18 12:24 | HHI.NSPN ---
Note Status Status: Progress Note Interval History Diagnosis cerebellar infarction Interval History Mr. Gallagher is a very pleasant 76 year old male. History was mostly obtained from his at bedside due to his severe dysarthria. His reports the patient presented to the ED on 03/05/2017 initially for shortness of breath. He has a known history of blood clots in his leg and is being managed in [place]. They are currently here on vacation for 2 months. Initially he was found to have elevated D-dimers but an angiography was negative for pulmonary embolism. He was evaluated by vascular surgeon Dr. Hernandez. He is being managed nonoperatively for thoracic aortic aneurysm. However underwent a fempop bypass surgery on 03/09/2017 due to an occlusion. The reports following surgery in recovery the patient was speaking well and normally. The following day she noted some dysarthria but attributed it to his current shortness of breath. He had an episode of acute hypoxia with respiratory distress and was monitored in CVICU. His reports his oxygenation improved however his dysarthria did not and he was worked up for possible CVA. He underwent an MRI brain which showed an acute right cerebellar ischemic infarction with punctate infarcts in the right occipital and left parietal lobes. No hydrocephalus. The patient does report positive headaches as well as possible increase drowsiness. However he remains and appear to be awake and alert. He denies focal weakness, extremity paresthesias, vision changes. Neurosurgical evaluation was requested. 03/15: remains severely dysarthric, but awake and alert overnight, no acute mental status changes. f/u CT Head this morning with stable right cerebellar infarction, fourth ventricle open, no signs of hydrocephalus. Labs, Micro, & Vital Signs Results Date Time Temp Pulse Resp B/P (MAP) Pulse Ox O2 Delivery O2 Flow Rate FiO2 03/18/17 12:07 97.8 59 17 134/73 (93) 96 03/18/17 10:13 96 Nasal Cannula 4.00 03/18/17 08:03 97.0 59 18 127/80 (96) 96 03/18/17 08:00 Nasal Cannula 4.00 03/18/17 08:00 60 2/3/18 04:15 96 60 03/18/17 04:00 97.9 61 22 117/77 (90) 96 03/18/17 01:35 95 60 03/18/17 00:00 97.9 73 22 127/81 (96) 94 03/18/17 00:00 84 03/17/17 22:50 94 60 03/17/17 21:40 92 40 03/17/17 21:30 92 Nasal Cannula 4.00 03/17/17 20:00 Nasal Cannula 4.00 03/17/17 20:00 97.7 75 22 142/75 (97) 93 03/17/17 17:55 3.00 03/17/17 15:41 97.6 66 16 108/69 (82) 93 03/17/17 15:30 Nasal Cannula 3.00 03/17/17 12:35 97 Nasal Cannula 4.00 Constitutional Vital Signs Date Time Temp Pulse Resp B/P (MAP) Pulse Ox O2 Delivery O2 Flow Rate FiO2 03/18/17 12:07 97.8 59 17 134/73 (93) 96 03/18/17 10:13 96 Nasal Cannula 4.00 03/18/17 08:03 97.0 59 18 127/80 (96) 96 03/18/17 08:00 Nasal Cannula 4.00 03/18/17 08:00 60 03/18/17 04:15 96 60 03/18/17 04:00 97.9 61 22 117/77 (90) 96 03/18/17 01:35 95 60 03/18/17 00:00 97.9 73 22 127/81 (96) 94 03/18/17 00:00 84 03/17/17 22:50 94 60 03/17/17 21:40 92 40 03/17/17 21:30 92 Nasal Cannula 4.00 03/17/17 20:00 Nasal Cannula 4.00 03/17/17 20:00 97.7 75 22 142/75 (97) 93 03/17/17 17:55 3.00 18 15:41 97.6 66 16 108/69 (82) 93 03/17/17 15:30 Nasal Cannula 3.00 03/17/17 12:35 97 Nasal Cannula 4.00 Physical Exam Mr. Gloade is comfortable, in no obvious distress during examination. Speech is dysarthric Neuro: Awake, alert. Speech is severely dysarthric. Can follow single and multi -step commands without apraxia. Cranial nerve examination: pupils to be equal, round, and reactive to light. Extra-ocular movements are intact with normal convergence. Facial motor and sensory function are normal and symmetrical. Tongue protruded midline. HENT: Normocephalic, atraumatic. Gross hearing intact bilaterally. Eyes: Pupils 4 mm equal round. Extra-ocular movement intact. Nonicteric sclera. No nistagmus Neck: soft, supple Extremities moves grossly muscle groups of both upper extremities including deltoid, biceps, triceps and lining feller. In the lower extremities exam limited he had gross proximal movement bilaterally, 4/5 distal lower extremity strength Sensory examination is intact light touch in both the upper and lower extremities Reflex: bilateral plantar flexion response. Cerebellar: mild dysmetria with right finger to nose, grossly intact left side Lungs: clear, nonlabored breathing, no wheezing Heart: S1, S2 Skin: warm and dry, no cyanosis. Medical Decision Making [facility] Remarks Last [address] 03/15/17 0800 Signed Impressions: Service Date/Time: Wednesday, March 15, 2017 08:11 - CONCLUSION: 1. Stable CT of the brain including prominent area of low-density in the right cerebellum could be an acute/subacute infarct. This is unchanged. 2. Old appearing small infarcts in the right parietal/occipital lobe and left cerebellum are stable. Bradley Simmons MD Neck CTA 03/14/17 0000 Signed Impressions: Service Date/Time: Tuesday, March 14, 2017 10:44 - CONCLUSION: Minimal calcific plaquing nonstenotic bilateral carotid bulbs and initial segment of the right internal carotid. Lakhwinder Adams MD Brain MRI 03/14/17 0000 Signed Impressions: Service Date/Time: Tuesday, March 14, 2017 19:56 - CONCLUSION: 1. No significant change in the appearance of large acute infarction involving the right cerebellum as well as the much smaller acute infarctions involving the right occipital lobe and left high parietal cortex. There is evidence of some hemorrhage within the right cerebellar infarct which is unchanged. 2. Scattered periventricular and subcortical white matter small vessel ischemic changes are noted bilaterally. 3. Old lacunar infarcts are noted within the bilateral basal ganglia and bilateral cerebellar hemispheres. Shai Thrasher MD Neck Magnetic Resonance Angiography 03/13/[id number] Signed Impressions: Service Date/Time: Monday, March 13, 2017 21:58 - CONCLUSION: 1. No significant stenosis in the carotid arteries. Left vertebral artery is dominant. Adrián Caicedo MD Head Magnetic Resonance Angiography 03/13/[id number] Signed Impressions: Service Date/Time: Monday, March 13, 2017 21:58 - CONCLUSION: 1. Patient within normal limits for age. Adrián Caicedo MD Head CT 03/13/17 1447 Signed Impressions: Service Date/Time: Monday, March 13, 2017 15:58 - CONCLUSION: 1. 3.5 x 3.6 cm low attenuation area in the right cerebellar hemisphere area most characteristic of edema which could be secondary to underlying mass or infarction. 2. Second smaller focal peripheral area of decreased attenuation involving the right parietal-occipital watershed region concern for edema as well. 3. Further evaluation with MRI imaging with and without contrast is recommended. Damion Gibbons MD Attending Statement He was transferred to the 4th floor. ? Continue neuro checks Cardiology recommend anticoagulation. Will defer to neurology Continue daily PT and Occupational Therapy Tolerated diet Deep venous thrombosis prophylaxis Discharge planning to [facility] Inder Tucker MD Mar 18, 2017 12:24
--- NOTE | 2017-03-18 15:29 | HHI.PR ---
Subjective Remarks ALERT NO SOB S/P REVASCULARIZATION Objective Vital Signs Date Time Temp Pulse Resp B/P (MAP) Pulse Ox O2 Delivery O2 Flow Rate FiO2 03/18/17 12:07 97.8 59 17 134/73 (93) 96 03/18/17 12:00 60 03/18/17 10:13 96 Nasal Cannula 4.00 03/18/17 08:03 97.0 59 18 127/80 (96) 96 03/18/17 08:00 Nasal Cannula 4.00 03/18/17 08:00 60 03/18/17 04:15 96 60 03/18/17 04:00 97.9 61 22 117/77 (90) 96 03/18/17 01:35 95 60 03/18/17 00:00 97.9 73 22 127/81 (96) 94 03/18/17 00:00 84 03/17/17 22:50 94 60 03/17/17 21:40 92 40 03/17/17 21:30 92 Nasal Cannula 4.00 03/17/17 20:00 Nasal Cannula 4.00 03/17/17 20:00 97.7 75 22 142/75 (97) 93 03/17/17 17:55 3.00 03/17/17 15:41 97.6 66 16 108/69 (82) 93 03/17/17 15:30 Nasal Cannula 3.00 I/O 03/17/17 03/17/17 03/17/17 03/18/17 03/18/17 03/18/17 07:00 15:00 23:00 07:00 15:00 23:00 Intake Total 120 ml Output Total 925 ml 225 ml 550 ml Balance -925 ml -225 ml -430 ml Intake Oral 120 ml Output Urine Total 925 ml 225 ml 550 ml # Bowel Movements 1 1 Result Diagram: 03/18/17 0734 03/18/17 0734 Objective Remarks GENERAL: SKIN: Warm and dry. HEAD: Atraumatic. Normocephalic. EYES: Pupils equal and round. No scleral icterus. No injection or drainage. ENT: No nasal bleeding or discharge. Mucous membranes pink and moist. NECK: Trachea midline. No JVD. CARDIOVASCULAR: Regular rate and rhythm. RESPIRATORY: No accessory muscle use. Clear to auscultation. Breath sounds equal bilaterally. GASTROINTESTINAL: Abdomen soft, non-tender, nondistended. Hepatic and splenic margins not palpable. MUSCULOSKELETAL: Extremities without clubbing, cyanosis, or edema. No obvious deformities. NEUROLOGICAL: Awake and alert. No obvious cranial nerve deficits. Motor grossly within normal limits. Five out of 5 muscle strength in the arms and legs. Normal speech. PSYCHIATRIC: Appropriate mood and affect; insight and judgment normal. Assessment and Plan Assessment and Plan ? BRONCHIAL ASTHMA, now stable pvd s/p CVA PLAN O2 NEEDED PRN ALBUTEROL INREASE ACTIVITY CHECK PFT Krysta Chaparro MD Mar 18, 2017 15:29
[2017-03-18] MEDS: ATORVASTATIN 80 MG TAB PO SCH (20:51)
[2017-03-18] MEDS: MONTELUKAST SODIUM 10 MG TAB PO SCH (20:51)
[2017-03-19] VITALS (14 sets, daily range): BP systolic 128–145; BP diastolic 71–83; PULSE 52–72; RESP 18–19; TEMP 97.2–97.8; O2SAT 91–97
[2017-03-19] MEDS ORDERED: PHARMACY ORDERED LAB ONE (04:45)
[2017-03-19] MEDS: VANCOMYCIN 1,500 MG/NS 500 ML IV SCH ×4 (04:50→16:34)
[2017-03-19 05:43] LABS: HEMATOCRIT 42.1 % (39.0-51.0); MEAN CELL VOLUME 85.9 FL (80.0-100.0); MEAN CORPUSCULAR HEMOGLOBIN 28.7 PG (27.0-34.0); MEAN CORPUSCULAR HGB CONC 33.4 % (32.0-36.0); MEAN PLATELET VOLUME 9.1 FL (7.0-11.0); PLATELET COUNT 139 TH/MM3 (150-450); RED CELL DISTRIBUTION WIDTH 14.2 % (11.6-17.2); WHITE BLOOD COUNT 19.5 TH/MM3 (4.0-11.0)
[2017-03-19] MEDS: methylPREDNISolone SOD SUCC 40 MG/1 ML VIAL IV PUSH SCH ×3 (06:16→21:01)
[2017-03-19] MEDS: PIPERACIL-TAZO 4.5 GM PREMIX 100 ML IV SCH ×4 (06:16→23:59)
[2017-03-19] MEDS: PANTOPRAZOLE SOD 40 MG DELAYED RELEASE TAB PO SCH (08:51)
[2017-03-19] MEDS: FINASTERIDE 5 MG TAB PO SCH (08:51)
[2017-03-19] MEDS: DOCUSATE SODIUM 50 MG/SENNA 8.6 MG TAB PO SCH ×2 (08:51→21:01)
[2017-03-19] MEDS: DULoxetine HCl DR 30 MG CAP PO SCH (08:51)
[2017-03-19] MEDS: GABAPENTIN 300 MG CAP PO SCH ×2 (08:51→21:01)
[2017-03-19] MEDS: ASPIRIN 81 MG CHEW TAB CHEW SCH (08:52)
[2017-03-19] MEDS: HEPARIN SODIUM - SQ 10,000 UNITS/ML VIAL SQ SCH ×2 (08:52→21:01)
[2017-03-19] MEDS: METOPROLOL TARTRATE 50 MG TAB PO SCH ×2 (08:52→21:01)
[2017-03-19] MEDS: LISINOPRIL 10 MG TAB PO SCH (08:52)
[2017-03-19] MEDS: MULTIVITAMIN TAB PO SCH (08:52)
[2017-03-19] MEDS: POLYETHYLENE GLYCOL 17 GM PKG PO SCH (08:52)
[2017-03-19] MEDS: FLUTICASONE 200 MCG/VILANTEROL 25 MCG INHALER INH SCH (08:53)
[2017-03-19] MEDS: SODIUM CHLORIDE 0.9% FLUSH 10 ML FLUSH IV FLUSH SCH ×2 (08:53→21:01)
--- NOTE | 2017-03-19 10:09 | HHI.FPPN ---
Subjective Remarks Patient seen and examined this morning. No acute events overnight per report. Patient's speech is still significantly slurred, but is able to communicate orally with nonverbal communication. He currently has no complaints and denies any fevers, chills, SOB, chest pain, NVD, ABD pain, or calf tenderness. Of note , patient refused PT yesterday because he was tired and did not want to be bothered. Per CM, patient will need new PT evaluation before discussions for possible DC to [facility] can take place. (Lv Ordaz MD R2) Objective Vitals Vital Signs Date Time Temp Pulse Resp B/P (MAP) Pulse Ox O2 Delivery O2 Flow Rate FiO2 03/19/17 08:00 97.5 60 18 145/77 (99) 97 03/19/17 04:40 95 60 03/19/17 04:06 59 03/19/17 04:00 97.2 61 18 136/83 (100) 96 03/19/17 00:30 95 60 03/19/17 00:00 97.5 54 18 128/71 (90) 91 03/18/17 23:59 53 03/18/17 20:50 Nasal Cannula 4.50 03/18/17 20:00 97.2 72 18 125/73 (90) 91 03/18/17 19:40 73 03/18/17 16:02 98.0 68 18 118/77 (91) 90 03/18/17 16:00 64 03/18/17 12:07 97.8 59 17 134/73 (93) 96 03/18/17 12:00 60 03/18/17 10:13 96 Nasal Cannula 4.00 I/O 03/18/17 03/18/17 03/18/17 03/19/17 03/19/17 03/19/17 07:00 15:00 23:00 07:00 15:00 23:00 Intake Total 120 ml 1115 ml 700 ml 515 ml Output Total 550 ml 825 ml 900 ml 350 ml Balance -430 ml 290 ml -200 ml 165 ml Intake Oral 120 ml 600 ml 500 ml IV Total 515 ml 200 ml 515 ml Output Urine Total 550 ml 825 ml 900 ml 350 ml # Bowel Movements 1 0 0 (Lv Ordaz MD R2) Result Diagram: 03/19/17 0458 03/18/17 0734 Objective Remarks GENERAL: Elderly gentleman lying in bed currently in no acute distress HEENT: Atraumatic, normocephalic with EOMI. No rhinorrhea. MMM. No visible LAD or JVD appreciated. RESPIRATORY: Clear to auscultation bilaterally with no CRW appreciated. Patient currently on nasal cannula. No increased WOB. CARDIOVASCULAR: RRR, no m/r/g. Radial and DP pulses 2+ and symmetric bilaterally. Brisk capillary refill. ABDOMEN: Soft, nondistended, nontender with BS in all 4 quadrants. No masses appreciated. MUSCULOSKELETAL: No calf tenderness. No edema appreciated. LLE Femoropopliteal bypass incision sites, CDI bandages. Pulses 2+ b/l. Sensation intact b/l. Moving toes and legs b/l. SKIN: Essentially clear with no significant rash or lesions. Adequate skin turgor. NEUROLOGICAL: Grossly afocal, slurred speech, stable from prior exam. Patient does attempt to communicate verbally, however he primarily communicates through hand motions and yes/no questions. Procedures tPA therapy for thrombolysis of left SFA 03/08-03/09 (Lv Ordaz MD R2) A/P Assessment and Plan 76-year-old male s/p Fempop bypass surgery on 03/09 subsequently found to have acute right cerebellar infarct on 03/13. Patient is currently stable. Discharge Planning OT/PT at rehab, [facility] consulted but will need new PT note, CM consulted (Lv Ordaz MD R2) Attending Attestation Patient examined and case discussed with resident physician I have read the above note and agree with the assessment/plan as discussed with me I was involved in all medical decision making for this patient Gary Rosado MD (Gary Rosado MD) Problem List: (1) Cerebral infarction due to unspecified occlusion or stenosis of right cerebellar artery ICD Codes: I63.541 - Cerebral infarction due to unspecified occlusion or stenosis of right cerebellar artery Status: Acute Plan: -Neurology consulted, recs appreciated -CT recommended in 2 weeks, clear for anticoagulation if stable -Cleared for DVT prophylaxis with Heparin 5000u twice a day -Continue Aspirin, Effient discontinued -Neurosurgery consulted, recs appreciated -CT head reviewed, nonoperative mgt -Hypercoagulable workup: Antithrombin elevated at 121 H, rest of workup pending -Cardiology consulted, recs appreciated. - SEAN: atrial septal aneurysm and PFO. PFO closure not recommended. Otherwise , unremarkable. -Continue PT/OT/ST, patient encouraged to participate in therapy to assist with discharge planning Previous Workup: Patient with slurred speech on 03/[address] and MRI showing R cerebellar edema and infarction consistent with CVA. -Head CT: 3.5 x 3.6 cm low attenuation area in the right cerebellar hemisphere area most characteristic of edema which could be secondary to underlying mass or infarction. Second smaller focal peripheral area of decreased attenuation involving the right parietal occipital watershed region concerning for edema as well. Further evaluation with MRI recommended. -Brain MRI: Proximally 5cm infarct of the right cerebellar hemisphere with small punctate infarcts in the right occipital lobe and left parietal lobe. Remote lacunar infarcts of the right basal ganglia and cerebellum. -Head MRA: Patient within normal limits for age -Neck MRA: No significant stenosis in the carotid arteries. Left vertebral artery is dominant. -Neck CTA: Minimal calcific plaquing nonstenotic bilateral carotid bulbs and initial segment of the right internal carotid. -Repeat Brain MRI: no significant change in the appearance of large acute infarction involving the right cerebellum as well as the much smaller acute infarctions involving the right occipital lobe and left high parietal cortex. 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 -Thoracic aneurysm aneurysm will be managed medically and with close follow- up for imaging -Goal systolic blood pressure of less than 120 (5) Flash pulmonary edema ICD Codes: J81.0 - Acute pulmonary edema Status: Resolved Plan: -Pulmonology consulted, appreciate recommendations -Continue Methylprednisolone 80mg IV push q8hr, start to wean as tolerated -PFTs ordered -Pt now on 4L NC, wean as tolerated -Continue DuoNebs and incentive spirometry Previous workup: Chest x-ray on admission significant for bibasilar subsegmental atelectasis ACS workup on admission negative D-dimer elevated on admission to 2.51, CTA negative for PE but did show 4.3 cm ascending thoracic aortic aneurysm TSH WNL at 2.56 -Course complicated by flash pulmonary edema on 03/13/17 -Repeat 2-D echo with Doppler ordered by vascular surgery, demonstrated EF of 55 -50, doppler parameters consistent with impaired left ventricular relation ( grade 1 diastolic dysfunction) (6) Superficial femoral artery occlusion ICD Codes: I70.209 - Unspecified atherosclerosis of [place] arteries of extremities, unspecified extremity Status: Resolved Plan: -Patient status post left femoropopliteal bypass femoral endarterectomy popliteal endarterectomy and patch on 03/09 -Patient w/ hx of PAD (7) HTN (hypertension) ICD Codes: I10 - Essential (primary) hypertension Status: Chronic Plan: -Continue lisinopril 10 mg daily, metoprolol tartrate 50 mg PO BID -Vasotec 1.25 mg IV when necessary for systolic blood pressure greater than 160 , diastolic blood pressure greater than 90 -Goal systolic blood pressure of less than 120 due to thoracic aortic aneurysm (8) CAD (coronary artery disease) ICD Codes: I25.10 - Atherosclerotic heart disease of [place] coronary artery without angina pectoris Status: Chronic Plan: -Patient with known CAD, status post coronary stents placed in 2007 -Continue home atorvastatin 80 mg at night, ASA 81 mg daily (9) BPH (benign prostatic hyperplasia) ICD Codes: N40.0 - Benign prostatic hyperplasia without lower urinary tract symptoms Plan: Continue home finasteride 5 mg by mouth daily (10) Constipation ICD Codes: K59.00 - Constipation, unspecified Status: Acute Plan: BM 3 days ago after Fleet enema -Miralax scheduled previously -Milk of magnesia scheduled 2/ -Continue constipation protocol. (11) FEN Plan: Diet: Heart healthy diet with nectar thickened liquids Oral fluids only Replete electrolytes as needed Zofran as needed for nausea Tylenol as needed for fever Protonix for GI prophylaxis Heparin for DVT prophylaxis 5000u BID (Lv Ordaz MD R2) Problem Qualifiers (1) HTN (hypertension): Qualified Codes: I10 - Essential (primary) hypertension (2) CAD (coronary artery disease): Qualified Codes: I25.10 - Atherosclerotic heart disease of [place] coronary artery without angina pectoris (3) Constipation: Qualified Codes: K59.00 - Constipation, unspecified Lv Ordaz MD R2 Mar 19, 2017 10:09 Gary Rosado MD Mar 19, 2017 10:35
[2017-03-19] MEDS: MAGNESIUM HYDROXIDE SUSP 30 ML CUP PO SCH ×2 (11:48→21:01)
[2017-03-19 11:53] LABS: BETA2-GLYCOPROTEIN IGA <9 SAU (< OR = 20); BETA2-GLYCOPROTEIN IGG <9 SGU (< OR = 20); BETA2-GLYCOPROTEIN IGM <9 SMU (< OR = 20)
--- NOTE | 2017-03-19 13:12 | HHI.PR ---
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 cardiology suggests anticoagulation not pfo; future consideration once ich resolves; possibly in 2-4 weeks recs doing well repeat ct brain in 1-2 weeks, if stable, coumadin consideration therapy Dr. Antunez to follow rehab placement (2) HTN (hypertension) ICD Codes: I10 - Essential (primary) hypertension Status: Chronic (3) CAD (coronary artery disease) ICD Codes: I25.10 - Atherosclerotic heart disease of [place] coronary artery without angina pectoris Status: Chronic Subjective Subjective Comments No acute events reported No headache No chest pain No dyspnea Active Medications Current Medications Medications (Trade) Dose Ordered Sig/Lizbeth Route Start Time Stop Time Status Last Admin (NS Flush) 2 ml UNSCH PRN IV FLUSH 03/05/17 22:00 (NS Flush) 2 ml BID IV FLUSH 03/06/17 09:00 03/18/17 20:52 (Lipitor) 80 mg HS PO 03/05/17 22:15 03/18/17 20:51 (Proscar) 5 mg DAILY PO 03/06/17 09:00 03/19/17 08:51 (Breo Ellipta 200-25 Inh) 1 puff DAILY INH 03/06/17 09:00 03/19/17 08:53 (Neurontin) 300 mg BID PO 03/05/17 22:15 03/19/17 08:51 (Prinivil) 10 mg DAILY PO 03/06/17 09:00 03/19/17 08:52 (Miralax) 17 gm DAILY PO 03/06/17 09:00 03/19/17 08:52 (Effient) 10 mg DAILY PO 03/06/17 09:00 Future Hold 03/12/17 08:51 (Protonix) 40 mg DAILY PO 03/06/17 09:00 03/19/17 08:51 (Theragran) 1 tab DAILY PO 03/06/17 09:00 03/19/17 08:52 (Albuterol Neb) 2.5 mg Q4HR WHILE AWAKE NEB PRN NEB 03/05/17 22:15 03/17/17 12:36 (Zofran Inj) 4 mg Q6HR PRN IV PUSH 03/05/17 22:15 03/17/17 20:32 (Tylenol) 325 mg Q4H PRN PO 03/05/17 22:15 03/11/17 00:55 (Lopressor) 50 mg Q12HR PO 03/06/17 10:00 03/19/17 08:52 (Singulair) 10 mg HS PO 03/06/17 21:00 03/18/17 20:51 (Morphine Inj) 4 mg Q3H PRN IV PUSH 03/09/17 16:30 03/13/17 09:57 (Percocet 5-325 Mg) 1 tab Q4H PRN PO 03/09/17 16:30 03/16/17 23:18 (Arleth-Colace) 1 tab BID PO 03/14/17 12:30 03/19/17 08:51 (Senokot) 17.2 mg Q12H PRN PO 03/14/17 12:30 (Dulcolax Supp) 10 mg DAILY PRN RECTAL 03/14/17 12:30 (Lactulose Liq) 30 ml DAILY PRN PO 03/14/17 12:30 03/14/17 15:23 (Cymbalta Dr) 30 mg DAILY PO 03/16/17 10:00 03/19/17 08:51 Pharmacy Profile Note 0 ml @ 0 mls/hr UNSCH OTHER 03/17/17 15:30 Piperacillin Sod/ Tazobactam Sod 100 ml @ 200 mls/hr Q6H IV 03/17/17 18:00 03/19/17 11:48 Vancomycin HCl 1500 mg/Sodium Chloride 515 ml @ 257.5 mls/ hr Q12H IV 03/17/17 17:00 03/19/17 04:50 (SoluMEDROL INJ) 80 mg Q8HR IV PUSH 03/17/17 22:00 03/19/17 06:16 (Aspirin Chew) 162 mg DAILY CHEW 03/19/17 09:00 03/19/17 08:52 (Heparin Inj) 5,000 units BID SQ 03/19/17 09:00 03/19/17 08:52 (Milk Of Magnesia Liq) 30 ml Q12HR PO 03/19/17 10:07 03/19/17 11:48 Allergies Allergies Coded Allergies chocolate flavor (Verified Allergy, Unknown, 03/05/17) milk (Verified Allergy, Unknown, 03/05/17) orange juice (Verified Allergy, Unknown, 03/05/17) peanut (Verified Allergy, Unknown, 03/05/17) Uncoded Allergies granulated sugar ( Allergy, Unknown, 03/05/17) Review of Systems All other ROS: ROS reviewed as documented in chart Exam I&O / VS 03/19/17 03/19/17 03/20/17 15:00 23:00 07:00 Intake Total 615 ml Output Total 350 ml Balance 265 ml IV Total 615 ml Output Urine Total 350 ml Vital Signs Date Time Temp Pulse Resp B/P (MAP) Pulse Ox O2 Delivery O2 Flow Rate FiO2 03/19/17 08:40 93 Nasal Cannula 4.00 03/19/17 08:00 97.5 60 18 145/77 (99) 97 03/19/17 07:50 Nasal Cannula 4.50 03/19/17 04:40 95 60 03/19/17 04:06 59 03/19/17 04:00 97.2 61 18 136/83 (100) 96 03/19/17 00:30 95 60 03/19/17 00:00 97.5 54 18 128/71 (90) 91 03/18/17 23:59 53 03/18/17 20:50 Nasal Cannula 4.50 03/18/17 20:00 97.2 72 18 125/73 (90) 91 03/18/17 19:40 73 03/18/17 16:02 98.0 68 18 118/77 (91) 90 03/18/17 16:00 64 General: Alert and Oriented, No acute distress Exam Comments ox 2-3, follows, dysphonic, dysarthric speech, eomi, vff, ou 3mm sluggish, face sym, slow ff sarahi, joseph to gravity with lle weakness 3-4/5 Objective Micro and Labs Laboratory Tests Test 03/19/17 04:00 03/19/17 04:58 Vancomycin Level Trough 15.2 White Blood Count 19.5 Red Blood Count 4.90 Hemoglobin 14.0 Hematocrit 42.1 Mean Corpuscular Volume 85.9 Mean Corpuscular Hemoglobin 28.7 Mean Corpuscular Hemoglobin Concent 33.4 Red Cell Distribution Width 14.2 Platelet Count 139 Mean Platelet Volume 9.1 Date/Time Source Procedure Growth Status 03/17/17 16:39 Blood Peripheral Aerobic Blood Culture - Preliminary NO GROWTH IN 2 DAYS Resulted 03/17/17 16:39 Blood Peripheral Anaerobic Blood Culture - Preliminary NO GROWTH IN 2 DAYS Resulted 03/05/17 17:47 Nasal Aspirate Influenza Types A,B Antigen (ASTER) - Final NEGATIVE FOR FLU A AND B ANTIGEN.... Complete 03/17/17 19:00 Urine Clean Catch Urine Culture - Final Staphylococcus Epidermidis Complete Problem Qualifiers (1) HTN (hypertension): Qualified Codes: I10 - Essential (primary) hypertension (2) CAD (coronary artery disease): Qualified Codes: I25.10 - Atherosclerotic heart disease of [place] coronary artery without angina pectoris Garth Gonsalez MD Mar 19, 2017 13:12
--- NOTE | 2017-03-19 19:30 | HHI.PR ---
Subjective Remarks ALERT NO SOB S/P REVASCULARIZATION Objective Vital Signs Date Time Temp Pulse Resp B/P (MAP) Pulse Ox O2 Delivery O2 Flow Rate FiO2 03/19/17 16:30 72 03/19/17 16:00 97.7 64 18 145/80 (101) 92 03/19/17 12:15 64 03/19/17 12:00 97.6 69 18 141/81 (101) 96 03/19/17 08:50 55 03/19/17 08:40 93 Nasal Cannula 4.00 03/19/17 08:00 97.5 60 18 145/77 (99) 97 03/19/17 07:50 Nasal Cannula 4.50 03/19/17 04:40 95 60 03/19/17 04:06 59 03/19/17 04:00 97.2 61 18 136/83 (100) 96 03/19/17 00:30 95 60 03/19/17 00:00 97.5 54 18 128/71 (90) 91 03/18/17 23:59 53 03/18/17 20:50 Nasal Cannula 4.50 03/18/17 20:00 97.2 72 18 125/73 (90) 91 03/18/17 19:40 73 I/O 03/18/17 03/18/17 03/18/17 03/19/17 03/19/17 03/19/17 07:00 15:00 23:00 07:00 15:00 23:00 Intake Total 120 ml 1115 ml 700 ml 615 ml 615 ml Output Total 550 ml 825 ml 900 ml 350 ml Balance -430 ml 290 ml -200 ml 265 ml 615 ml Intake Oral 120 ml 600 ml 500 ml IV Total 515 ml 200 ml 615 ml 615 ml Output Urine Total 550 ml 825 ml 900 ml 350 ml # Bowel Movements 1 0 0 Result Diagram: 03/19/17 0458 03/18/17 0734 Objective Remarks GENERAL: SKIN: Warm and dry. HEAD: Atraumatic. Normocephalic. EYES: Pupils equal and round. No scleral icterus. No injection or drainage. ENT: No nasal bleeding or discharge. Mucous membranes pink and moist. NECK: Trachea midline. No JVD. CARDIOVASCULAR: Regular rate and rhythm. RESPIRATORY: No accessory muscle use. Clear to auscultation. Breath sounds equal bilaterally. GASTROINTESTINAL: Abdomen soft, non-tender, nondistended. Hepatic and splenic margins not palpable. MUSCULOSKELETAL: Extremities without clubbing, cyanosis, or edema. No obvious deformities. NEUROLOGICAL: Awake and alert. No obvious cranial nerve deficits. Motor grossly within normal limits. Five out of 5 muscle strength in the arms and legs. Normal speech. PSYCHIATRIC: Appropriate mood and affect; insight and judgment normal. Assessment and Plan Assessment and Plan ? BRONCHIAL ASTHMA, now stable pvd s/p CVA PLAN O2 NEEDED PRN ALBUTEROL INREASE ACTIVITY Krysta,Krysta Ontiveros MD Mar 19, 2017 19:30
--- NOTE | 2017-03-19 19:49 | HHI.NSPN ---
Note Status Status: Progress Note Interval History Diagnosis THIS NOTE REPRESENGTS MY ENCOUNTER ON 03/16/17 DURING ROUNDS cerebellar infarction Interval History THIS NOTE REPRESENGTS MY ENCOUNTER ON 03/16/17 DURING ROUNDS Mr. Gallagher is a very pleasant 76 year old male. History was mostly obtained from his at bedside due to his severe dysarthria. His reports the patient presented to the ED on 03/05/2017 initially for shortness of breath. He has a known history of blood clots in his leg and is being managed in [place]. They are currently here on vacation for 2 months. Initially he was found to have elevated D-dimers but an angiography was negative for pulmonary embolism. He was evaluated by vascular surgeon Dr. Hernandez. He is being managed nonoperatively for thoracic aortic aneurysm. However underwent a fempop bypass surgery on 03/09/2017 due to an occlusion. The reports following surgery in recovery the patient was speaking well and normally. The following day she noted some dysarthria but attributed it to his current shortness of breath. He had an episode of acute hypoxia with respiratory distress and was monitored in CVICU. His reports his oxygenation improved however his dysarthria did not and he was worked up for possible CVA. He underwent an MRI brain which showed an acute right cerebellar ischemic infarction with punctate infarcts in the right occipital and left parietal lobes. No hydrocephalus. The patient does report positive headaches as well as possible increase drowsiness. However he remains and appear to be awake and alert. He denies focal weakness, extremity paresthesias, vision changes. Neurosurgical evaluation was requested. 03/15: remains severely dysarthric, but awake and alert overnight, no acute mental status changes. f/u CT Head this morning with stable right cerebellar infarction, fourth ventricle open, no signs of hydrocephalus. 03/16. Alert and awake. Dysarthric speech. Follows commands. Wearing CPAP mask Labs, Micro, & Vital Signs Results Date Time Temp Pulse Resp B/P (MAP) Pulse Ox O2 Delivery O2 Flow Rate FiO2 03/19/17 16:30 72 03/19/17 16:00 97.7 64 18 145/80 (101) 92 03/19/17 12:15 64 03/19/17 12:00 97.6 69 18 141/81 (101) 96 03/19/17 08:50 55 03/19/17 08:40 93 Nasal Cannula 4.00 03/19/17 08:00 97.5 60 18 145/77 (99) 97 03/19/17 07:50 Nasal Cannula 4.50 03/19/17 04:40 95 60 03/19/17 04:06 59 03/19/17 04:00 97.2 61 18 136/83 (100) 96 03/19/17 00:30 95 60 03/19/17 00:00 97.5 54 18 128/71 (90) 91 03/18/17 23:59 53 03/18/17 20:50 Nasal Cannula 4.50 03/18/17 20:00 97.2 72 18 125/73 (90) 91 03/20/17 07:00 Intake Total 1230 ml Output Total 350 ml Balance 880 ml Constitutional Vital Signs Date Time Temp Pulse Resp B/P (MAP) Pulse Ox O2 Delivery O2 Flow Rate FiO2 03/19/17 16:30 72 03/19/17 16:00 97.7 64 18 145/80 (101) 92 03/19/17 12:15 64 03/19/17 12:00 97.6 69 18 141/81 (101) 96 03/19/17 08:50 55 03/19/17 08:40 93 Nasal Cannula 4.00 03/19/17 08:00 97.5 60 18 145/77 (99) 97 03/19/17 07:50 Nasal Cannula 4.50 03/19/17 04:40 95 60 03/19/17 04:06 59 03/19/17 04:00 97.2 61 18 136/83 (100) 96 03/19/17 00:30 95 60 03/19/17 00:00 97.5 54 18 128/71 (90) 91 03/18/17 23:59 53 03/18/17 20:50 Nasal Cannula 4.50 03/18/17 20:00 97.2 72 18 125/73 (90) 91 03/20/17 07:00 Intake Total 1230 ml Output Total 350 ml Balance 880 ml Physical Exam THIS NOTE REPRESENGTS MY ENCOUNTER ON 03/16/17 DURING ROUNDS Mr. Gallagher is comfortable, in no obvious distress during examination. Speech is dysarthric Neuro: Awake, alert. Speech is severely dysarthric. Can follow single and multi -step commands without apraxia. Cranial nerve examination: pupils to be equal, round, and reactive to light. Extra-ocular movements are intact with normal convergence. Facial motor and sensory function are normal and symmetrical. Tongue protruded midline. HENT: Normocephalic, atraumatic. Gross hearing intact bilaterally. Eyes: Pupils 4 mm equal round. Extra-ocular movement intact. Nonicteric sclera. No nistagmus Neck: soft, supple Extremities moves grossly muscle groups of both upper extremities including deltoid, biceps, triceps and public relations coordinator. In the lower extremities exam limited he had gross proximal movement bilaterally, 4/5 distal lower extremity strength Sensory examination is intact light touch in both the upper and lower extremities Reflex: bilateral plantar flexion response. Cerebellar: mild dysmetria with right finger to nose, grossly intact left side Lungs: clear, nonlabored breathing, no wheezing Heart: S1, S2 Skin: warm and dry, no cyanosis. Medical Decision Making MDM Remarks THIS NOTE REPRESENGTS MY ENCOUNTER ON 03/16/17 DURING ROUNDS Last [address] 03/15/17 0800 Signed Impressions: Service Date/Time: Wednesday, March 15, 2017 08:11 - CONCLUSION: 1. Stable CT of the brain including prominent area of low-density in the right cerebellum could be an acute/subacute infarct. This is unchanged. 2. Old appearing small infarcts in the right parietal/occipital lobe and left cerebellum are stable. Bradley Simmons MD Neck CTA 03/14/17 0000 Signed Impressions: Service Date/Time: Tuesday, March 14, 2017 10:44 - CONCLUSION: Minimal calcific plaquing nonstenotic bilateral carotid bulbs and initial segment of the right internal carotid. Lakhwinder Adams MD Brain MRI 03/14/17 0000 Signed Impressions: Service Date/Time: Tuesday, March 14, 2017 19:56 - CONCLUSION: 1. No significant change in the appearance of large acute infarction involving the right cerebellum as well as the much smaller acute infarctions involving the right occipital lobe and left high parietal cortex. There is evidence of some hemorrhage within the right cerebellar infarct which is unchanged. 2. Scattered periventricular and subcortical white matter small vessel ischemic changes are noted bilaterally. 3. Old lacunar infarcts are noted within the bilateral basal ganglia and bilateral cerebellar hemispheres. Shai Thrasher MD Neck Magnetic Resonance Angiography [id number]/13/[id number] Signed Impressions: Service Date/Time: Monday, March 13, 2017 21:58 - CONCLUSION: 1. No significant stenosis in the carotid arteries. Left vertebral artery is dominant. Adrián Caicedo MD Head Magnetic Resonance Angiography [id number]/13/[id number] Signed Impressions: Service Date/Time: Monday, March 13, 2017 21:58 - CONCLUSION: 1. Patient within normal limits for age. Adrián Caicedo MD Head CT 03/13/17 1447 Signed Impressions: Service Date/Time: Monday, March 13, 2017 15:58 - CONCLUSION: 1. 3.5 x 3.6 cm low attenuation area in the right cerebellar hemisphere area most characteristic of edema which could be secondary to underlying mass or infarction. 2. Second smaller focal peripheral area of decreased attenuation involving the right parietal-occipital watershed region concern for edema as well. 3. Further evaluation with MRI imaging with and without contrast is recommended. MD Caitlin Helton Federico Carlos MD Mar 19, 2017 19:49
[2017-03-19] MEDS: ATORVASTATIN 80 MG TAB PO SCH (21:01)
[2017-03-19] MEDS: MONTELUKAST SODIUM 10 MG TAB PO SCH (21:01)
[2017-03-20] VITALS (10 sets, daily range): BP systolic 97–143; BP diastolic 70–86; PULSE 56–96; RESP 18–20; TEMP 97.2–97.6; O2SAT 90–95
[2017-03-20] MEDS: VANCOMYCIN 1,500 MG/NS 500 ML IV SCH ×4 (04:44→16:58)
[2017-03-20] MEDS: PIPERACIL-TAZO 4.5 GM PREMIX 100 ML IV SCH ×3 (05:39→16:57)
[2017-03-20] MEDS: methylPREDNISolone SOD SUCC 40 MG/1 ML VIAL IV PUSH SCH ×3 (05:43→22:42)
[2017-03-20 05:53] LABS: AUTOMATED NEUTROPHIL # 16.1 TH/MM3 (1.8-7.7); BASOPHIL % 0.1 % (0.0-2.0); HEMATOCRIT 41.9 % (39.0-51.0); HEMOGLOBIN 14.1 GM/DL (13.0-17.0); LYMPH % 3.7 % (9.0-44.0); LYMPHOCYTE # 0.6 TH/MM3 (1.0-4.8); MEAN CELL VOLUME 85.5 FL (80.0-100.0); MEAN CORPUSCULAR HEMOGLOBIN 28.7 PG (27.0-34.0); MEAN CORPUSCULAR HGB CONC 33.6 % (32.0-36.0); MEAN PLATELET VOLUME 9.2 FL (7.0-11.0); MONO % 4.2 % (0.0-8.0); MONOCYTE # 0.7 TH/MM3 (0-0.9); PLATELET COUNT 116 TH/MM3 (150-450); RED CELL DISTRIBUTION WIDTH 14.2 % (11.6-17.2); WHITE BLOOD COUNT 17.5 TH/MM3 (4.0-11.0)
[2017-03-20 06:12] LABS: BICARBONATE 23.2 MEQ/L (21.0-32.0); CALCIUM 7.6 MG/DL (8.5-10.1); CREATININE 0.73 MG/DL (0.60-1.30)
--- NOTE | 2017-03-20 08:38 | HHI.PR ---
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 cardiology suggests anticoagulation not pfo; future consideration once ich resolves; possibly in 2-4 weeks recs nuero stable; mild rt ataxic-hemiparesis repeat ct brain in 1-2 weeks, if stable, coumadin consideration therapy Dr. Antunez to follow rehab placement (2) HTN (hypertension) ICD Codes: I10 - Essential (primary) hypertension Status: Chronic (3) CAD (coronary artery disease) ICD Codes: I25.10 - Atherosclerotic heart disease of [place] coronary artery without angina pectoris Status: Chronic Subjective Subjective Comments No acute events reported No headache No chest pain No dyspnea Active Medications Current Medications Medications (Trade) Dose Ordered Sig/Lizbeth Route Start Time Stop Time Status Last Admin (NS Flush) 2 ml UNSCH PRN IV FLUSH 03/05/17 22:00 (NS Flush) 2 ml BID IV FLUSH 03/06/17 09:00 03/19/17 21:01 (Lipitor) 80 mg HS PO 03/05/17 22:15 03/19/17 21:01 (Proscar) 5 mg DAILY PO 03/06/17 09:00 03/19/17 08:51 (Breo Ellipta 200-25 Inh) 1 puff DAILY INH 03/06/17 09:00 03/19/17 08:53 (Neurontin) 300 mg BID PO 03/05/17 22:15 03/19/17 21:01 (Prinivil) 10 mg DAILY PO 03/06/17 09:00 03/19/17 08:52 (Miralax) 17 gm DAILY PO 03/06/17 09:00 03/19/17 08:52 (Effient) 10 mg DAILY PO 03/06/17 09:00 Future Hold 03/12/17 08:51 (Protonix) 40 mg DAILY PO 03/06/17 09:00 03/19/17 08:51 (Theragran) 1 tab DAILY PO 03/06/17 09:00 03/19/17 08:52 (Albuterol Neb) 2.5 mg Q4HR WHILE AWAKE NEB PRN NEB 03/05/17 22:15 03/17/17 12:36 (Zofran Inj) 4 mg Q6HR PRN IV PUSH 03/05/17 22:15 03/17/17 20:32 (Tylenol) 325 mg Q4H PRN PO 03/05/17 22:15 03/11/17 00:55 (Lopressor) 50 mg Q12HR PO 03/06/17 10:00 03/19/17 21:01 (Singulair) 10 mg HS PO 03/06/17 21:00 03/19/17 21:01 (Morphine Inj) 4 mg Q3H PRN IV PUSH 03/09/17 16:30 03/13/17 09:57 (Percocet 5-325 Mg) 1 tab Q4H PRN PO 03/09/17 16:30 03/16/17 23:18 (Arleth-Colace) 1 tab BID PO 03/14/17 12:30 03/19/17 21:01 (Senokot) 17.2 mg Q12H PRN PO 03/14/17 12:30 (Dulcolax Supp) 10 mg DAILY PRN RECTAL 03/14/17 12:30 (Lactulose Liq) 30 ml DAILY PRN PO 03/14/17 12:30 03/14/17 15:23 (Cymbalta Dr) 30 mg DAILY PO 03/16/17 10:00 03/19/17 08:51 Pharmacy Profile Note 0 ml @ 0 mls/hr UNSCH OTHER 03/17/17 15:30 Piperacillin Sod/ Tazobactam Sod 100 ml @ 200 mls/hr Q6H IV 03/17/17 18:00 03/20/17 05:39 Vancomycin HCl 1500 mg/Sodium Chloride 515 ml @ 257.5 mls/ hr Q12H IV 03/17/17 17:00 03/20/17 04:44 (SoluMEDROL INJ) 80 mg Q8HR IV PUSH 03/17/17 22:00 03/20/17 05:43 (Aspirin Chew) 162 mg DAILY CHEW 03/19/17 09:00 03/19/17 08:52 (Heparin Inj) 5,000 units BID SQ 03/19/17 09:00 03/19/17 21:01 (Milk Of Magnesia Liq) 30 ml Q12HR PO 03/19/17 10:07 03/19/17 21:01 Allergies Allergies Coded Allergies chocolate flavor (Verified Allergy, Unknown, 03/05/17) milk (Verified Allergy, Unknown, 03/05/17) orange juice (Verified Allergy, Unknown, 03/05/17) peanut (Verified Allergy, Unknown, 03/05/17) Uncoded Allergies granulated sugar ( Allergy, Unknown, 03/05/17) Review of Systems All other ROS: ROS reviewed as documented in chart Exam I&O / VS 03/20/17 03/20/17 03/21/17 15:00 23:00 07:00 Intake Total 515 ml Balance 515 ml IV Total 515 ml Vital Signs Date Time Temp Pulse Resp B/P (MAP) Pulse Ox O2 Delivery O2 Flow Rate FiO2 03/20/17 04:00 97.5 62 18 130/79 (96) 93 03/20/17 03:42 59 03/20/17 00:00 94 Nasal Cannula 4.50 03/20/17 00:00 97.3 56 20 143/86 (105) 94 03/19/17 23:57 52 03/19/17 21:00 94 Nasal Cannula 4.50 03/19/17 20:00 64 03/19/17 20:00 97.8 63 19 137/81 (99) 94 03/19/17 16:30 72 03/19/17 16:00 97.7 64 18 145/80 (101) 92 03/19/17 12:15 64 03/19/17 12:00 97.6 69 18 141/81 (101) 96 03/19/17 08:50 55 03/19/17 08:40 93 Nasal Cannula 4.00 General: Alert and Oriented, No acute distress Exam Comments ox 2-3, follows, dysphonic, dysarthric speech, eomi, vff, ou 3mm sluggish, face sym, mild rt ue dystaxia, able to raise both le to gravity, mild rt leg dystaxia Objective Micro and Labs Laboratory Tests Test 03/20/17 05:39 White Blood Count 17.5 Red Blood Count 4.90 Hemoglobin 14.1 Hematocrit 41.9 Mean Corpuscular Volume 85.5 Mean Corpuscular Hemoglobin 28.7 Mean Corpuscular Hemoglobin Concent 33.6 Red Cell Distribution Width 14.2 Platelet Count 116 Mean Platelet Volume 9.2 Neutrophils (%) (Auto) 92.0 Lymphocytes (%) (Auto) 3.7 Monocytes (%) (Auto) 4.2 Eosinophils (%) (Auto) 0.0 Basophils (%) (Auto) 0.1 Neutrophils # (Auto) 16.1 Lymphocytes # (Auto) 0.6 Monocytes # (Auto) 0.7 Eosinophils # (Auto) 0.0 Basophils # (Auto) 0.0 CBC Comment DIFF FINAL Differential Comment Blood Urea Nitrogen 35 Creatinine 0.73 Random Glucose 107 Calcium Level 7.6 Sodium Level 136 Potassium Level 4.7 Chloride Level 106 Carbon Dioxide Level 23.2 Anion Gap 7 Estimat Glomerular Filtration Rate 104 Date/Time Source Procedure Growth Status 03/17/17 16:39 Blood Peripheral Aerobic Blood Culture - Preliminary NO GROWTH IN 2 DAYS Resulted 03/17/17 16:39 Blood Peripheral Anaerobic Blood Culture - Preliminary NO GROWTH IN 2 DAYS Resulted 03/05/17 17:47 Nasal Aspirate Influenza Types A,B Antigen (ASTER) - Final NEGATIVE FOR FLU A AND B ANTIGEN.... Complete 03/17/17 19:00 Urine Clean Catch Urine Culture - Final Staphylococcus Epidermidis Complete Problem Qualifiers (1) HTN (hypertension): Qualified Codes: I10 - Essential (primary) hypertension (2) CAD (coronary artery disease): Qualified Codes: I25.10 - Atherosclerotic heart disease of [place] coronary artery without angina pectoris Garth Gonsalez MD Mar 20, 2017 08:38
[2017-03-20] MEDS: FLUTICASONE 200 MCG/VILANTEROL 25 MCG INHALER INH SCH (09:00)
[2017-03-20] MEDS: METOPROLOL TARTRATE 50 MG TAB PO SCH ×2 (09:02→20:21)
[2017-03-20] MEDS: PANTOPRAZOLE SOD 40 MG DELAYED RELEASE TAB PO SCH (09:02)
[2017-03-20] MEDS: FINASTERIDE 5 MG TAB PO SCH (09:02)
[2017-03-20] MEDS: LISINOPRIL 10 MG TAB PO SCH (09:02)
[2017-03-20] MEDS: DULoxetine HCl DR 30 MG CAP PO SCH (09:02)
[2017-03-20] MEDS: MULTIVITAMIN TAB PO SCH (09:03)
[2017-03-20] MEDS: ASPIRIN 81 MG CHEW TAB CHEW SCH (09:03)
[2017-03-20] MEDS: HEPARIN SODIUM - SQ 10,000 UNITS/ML VIAL SQ SCH ×2 (09:03→20:21)
[2017-03-20] MEDS: MAGNESIUM HYDROXIDE SUSP 30 ML CUP PO SCH ×2 (09:03→20:21)
[2017-03-20] MEDS: POLYETHYLENE GLYCOL 17 GM PKG PO SCH (09:03)
[2017-03-20] MEDS: DOCUSATE SODIUM 50 MG/SENNA 8.6 MG TAB PO SCH ×2 (09:03→20:21)
[2017-03-20] MEDS: GABAPENTIN 300 MG CAP PO SCH ×2 (09:03→20:21)
[2017-03-20] MEDS: SODIUM CHLORIDE 0.9% FLUSH 10 ML FLUSH IV FLUSH SCH ×2 (09:04→20:22)
[2017-03-20 10:25] LABS: PROTEIN C ACTIVITY 162 % (70 - 150); PROTEIN S ACTIVITY 116 % (65 - 160)
[2017-03-20] MEDS: RESP: ALBUTEROL 2.5 MG/3 ML NEB (PRN) NEB ×3 (12:12→19:43)
--- NOTE | 2017-03-20 12:25 | HHI.FPPN ---
Subjective Remarks Patient seen and examined this morning. No acute events overnight. Patient seems in better spirits today and indicated he is ready to be discharged to rehab/[place]. He does complain of BL lower extremity pain and scores it a 6/10 and throbbing in natures. He denies any loss of motor strength or sensation. Otherwise he has no complaints and states physical therapy is going well. He denies any fevers, chills, SOB, chest pain, NVD, or ABD pain. (Lv Ordaz MD R2) Objective Vitals Vital Signs Date Time Temp Pulse Resp B/P (MAP) Pulse Ox O2 Delivery O2 Flow Rate FiO2 03/20/17 08:00 90 Nasal Cannula 4.50 03/20/17 08:00 97.5 73 20 133/84 (100) 90 03/20/17 04:00 97.5 62 18 130/79 (96) 93 03/20/17 03:42 59 03/20/17 00:00 94 Nasal Cannula 4.50 03/20/17 00:00 97.3 56 20 143/86 (105) 94 03/19/17 23:57 52 03/19/17 21:00 94 Nasal Cannula 4.50 03/19/17 20:00 64 03/19/17 20:00 97.8 63 19 137/81 (99) 94 03/19/17 16:30 72 03/19/17 16:00 97.7 64 18 145/80 (101) 92 I/O 03/19/17 03/19/17 03/19/17 03/20/17 03/20/17 03/20/17 07:00 15:00 23:00 07:00 15:00 23:00 Intake Total 700 ml 615 ml 615 ml 200 ml 515 ml Output Total 900 ml 350 ml 200 ml Balance -200 ml 265 ml 615 ml 0 ml 515 ml Intake Oral 500 ml IV Total 200 ml 615 ml 615 ml 200 ml 515 ml Output Urine Total 900 ml 350 ml 200 ml # Voids 2 # Bowel Movements 0 1 (Lv Ordaz MD R2) Result Diagram: 03/20/17 0539 03/20/17 0539 Objective Remarks GENERAL: Elderly gentleman sitting in his recliner currently in no acute distress HEENT: Atraumatic, normocephalic with EOMI. No rhinorrhea. MMM. No visible LAD or JVD appreciated. RESPIRATORY: Clear to auscultation bilaterally with no CRW appreciated. Patient currently on nasal cannula. No increased WOB. CARDIOVASCULAR: RRR, no m/r/g. Radial and DP pulses 2+ and symmetric bilaterally. Brisk capillary refill. ABDOMEN: Soft, nondistended, nontender with BS in all 4 quadrants. No masses appreciated. MUSCULOSKELETAL: No edema appreciated. BL calf tenderness with positive Homans sign on LLE. No swelling or skin changes. 2+ DP and PT pulses BL. LLE Femoropopliteal bypass incision sites, CDI bandages. Pulses 2+ b/l. Sensation intact b/l. Moving toes and legs b/l. SKIN: Essentially clear with no significant rash or lesions. Adequate skin turgor. NEUROLOGICAL: Grossly afocal, slurred speech, stable from prior exam. Patient does attempt to communicate verbally, however he primarily communicates through hand motions and yes/no questions. Procedures tPA therapy for thrombolysis of left SFA 03/08-03/09 (Lv Ordaz MD R2) A/P Assessment and Plan 76-year-old male s/p Fempop bypass surgery on 03/09 subsequently found to have acute right cerebellar infarct on 03/13. Patient is currently stable. Discharge Planning OT/PT at rehab, [facility] consulted but will need new PT note, CM consulted (Lv Ordaz MD R2) Attending Attestation Pt. examined and case discussed with resident physicians. I have read the above note and agree with the assessment and plan as discussed with me. I was involved in all medical decision making for this patient. Gary Rosado MD (Gary Rosado MD) Problem List: (1) Cerebral infarction due to unspecified occlusion or stenosis of right cerebellar artery ICD Codes: I63.541 - Cerebral infarction due to unspecified occlusion or stenosis of right cerebellar artery Status: Acute Plan: -Neurology consulted, recs appreciated -CT recommended in 2 weeks, clear for anticoagulation if stable -Cleared for DVT prophylaxis with Heparin 5000u twice a day -Continue Aspirin, Effient discontinued -Neurosurgery consulted, recs appreciated -CT head reviewed, nonoperative mgt -Hypercoagulable workup: Antithrombin elevated at 121 H, rest of workup pending -Cardiology consulted, recs appreciated. - SEAN: atrial septal aneurysm and PFO. PFO closure not recommended. Otherwise , unremarkable. -Continue PT/OT/ST, patient encouraged to participate in therapy to assist with discharge planning Previous Workup: Patient with slurred speech on 03/[address] and MRI showing R cerebellar edema and infarction consistent with CVA. -Head CT: 3.5 x 3.6 cm low attenuation area in the right cerebellar hemisphere area most characteristic of edema which could be secondary to underlying mass or infarction. Second smaller focal peripheral area of decreased attenuation involving the right parietal occipital watershed region concerning for edema as well. Further evaluation with MRI recommended. -Brain MRI: Proximally 5cm infarct of the right cerebellar hemisphere with small punctate infarcts in the right occipital lobe and left parietal lobe. Remote lacunar infarcts of the right basal ganglia and cerebellum. -Head MRA: Patient within normal limits for age -Neck MRA: No significant stenosis in the carotid arteries. Left vertebral artery is dominant. -Neck CTA: Minimal calcific plaquing nonstenotic bilateral carotid bulbs and initial segment of the right internal carotid. -Repeat Brain MRI: no significant change in the appearance of large acute infarction involving the right cerebellum as well as the much smaller acute infarctions involving the right occipital lobe and left high parietal cortex. -Repeat head CT: Stable right cerebellar infarction, fourth ventricle open, no signs of hydrocephalus (2) DVT (deep venous thrombosis) ICD Codes: I82.409 - Acute embolism and thrombosis of unspecified deep veins of unspecified lower extremity Status: Acute Plan: -LE US 03/20/17: Positive venous Doppler bilaterally above the knee on the R and below the knee on the L. -Anticoagulation held due to hemorrhagic stroke -Re-evaluation after repeat MRI in 1 week per neurology -Plan to discuss possible IVC filter with Vascular surgery -Hematology consulted, appreciate recommendations (3) Pneumonia ICD Codes: J18.9 - Pneumonia, unspecified organism Plan: CXR 03/17 demonstrated consolidation with infrahilar region on the right, possible aspiration Pneumonia -Pulmonology previously consulted, appreciate recommendations -Continue Methylprednisolone 80mg IV push q8hr, start to wean as tolerated -PFTs ordered Continue Vancomycin, pharmacy consulted for dosing Continue Zosyn 4.5 GM IV q6h (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 -Thoracic aneurysm aneurysm will be managed medically and with close follow- up for imaging -Goal systolic blood pressure of less than 120 (6) Flash pulmonary edema ICD Codes: J81.0 - Acute pulmonary edema Status: Resolved Plan: -Pulmonology consulted, appreciate recommendations -Continue Methylprednisolone 80mg IV push q8hr, start to wean as tolerated -PFTs ordered -Pt now on 4L NC, wean as tolerated -Continue DuoNebs and incentive spirometry Previous workup: Chest x-ray on admission significant for bibasilar subsegmental atelectasis ACS workup on admission negative D-dimer elevated on admission to 2.51, CTA negative for PE but did show 4.3 cm ascending thoracic aortic aneurysm TSH WNL at 2.56 -Course complicated by flash pulmonary edema on 03/13/17 -Repeat 2-D echo with Doppler ordered by vascular surgery, demonstrated EF of 55 -50, doppler parameters consistent with impaired left ventricular relation ( grade 1 diastolic dysfunction) (7) Superficial femoral artery occlusion ICD Codes: I70.209 - Unspecified atherosclerosis of [place] arteries of extremities, unspecified extremity Status: Resolved Plan: -Patient status post left femoropopliteal bypass femoral endarterectomy popliteal endarterectomy and patch on 03/09 -Patient w/ hx of PAD (8) HTN (hypertension) ICD Codes: I10 - Essential (primary) hypertension Status: Chronic Plan: -Continue lisinopril 10 mg daily, metoprolol tartrate 50 mg PO BID -Vasotec 1.25 mg IV when necessary for systolic blood pressure greater than 160 , diastolic blood pressure greater than 90 -Goal systolic blood pressure of less than 120 due to thoracic aortic aneurysm (9) CAD (coronary artery disease) ICD Codes: I25.10 - Atherosclerotic heart disease of [place] coronary artery without angina pectoris Status: Chronic Plan: -Patient with known CAD, status post coronary stents placed in 2007 -Continue home atorvastatin 80 mg at night, ASA 81 mg daily (10) BPH (benign prostatic hyperplasia) ICD Codes: N40.0 - Benign prostatic hyperplasia without lower urinary tract symptoms Plan: Continue home finasteride 5 mg by mouth daily (11) Constipation ICD Codes: K59.00 - Constipation, unspecified Status: Acute Plan: BM 3 days ago after Fleet enema -Miralax scheduled previously -Milk of magnesia scheduled 2/ -Continue constipation protocol. (12) FEN Plan: Diet: Heart healthy diet with nectar thickened liquids Oral fluids only Replete electrolytes as needed Zofran as needed for nausea Tylenol as needed for fever Protonix for GI prophylaxis Heparin for DVT prophylaxis 5000u BID (Lv Ordaz MD R2) Problem Qualifiers (1) DVT (deep venous thrombosis): (2) HTN (hypertension): Qualified Codes: I10 - Essential (primary) hypertension (3) CAD (coronary artery disease): Qualified Codes: I25.10 - Atherosclerotic heart disease of [place] coronary artery without angina pectoris (4) Constipation: Qualified Codes: K59.00 - Constipation, unspecified Lv Ordaz MD R2 Mar 20, 2017 12:25 Gary Rosado MD Mar 20, 2017 20:42
--- NOTE | 2017-03-20 15:22 | RADRPT ---
EXAM DATE/TIME: 03/20/2017 14:25 [facility] COMPARISON: No previous studies available for comparison. INDICATIONS : Bilateral leg pain. MEDICAL HISTORY : Myocardial infarction. Hypercholesterolemia. Arthritis. Coronary artery disease. Pulmonary embolism. DVT. HTN. Asthma. Dyspnea. SURGICAL HISTORY : Coronary artery stent.Cholecystectomy. Herniated disc surgery. Disc replacement. ENCOUNTER: Initial ACUITY: 2 day PAIN SCORE: 4/10 LOCATION: Bilateral leg. TECHNIQUE: Venous ultrasound of the left and right leg was performed from the inguinal ligament to the proximal calf. Real-time, color Doppler and spectral tracing, compression and augmentation techniques were us ed. FINDINGS: RIGHT LEG: There is deep venous thrombosis in the right common femoral vein, nonocclusive. Occlusive thrombus i s present in the superficial femoral vein and deep femoral vein. LEFT LEG: Occlusive thrombus in the left peroneal veins. CONCLUSION: Positive venous Doppler bilaterally above the knee on the right and below the knee on the left. Seymour Nelson MD FACR on March 20, 2017 at 15:19 Board Certified Radiologist. This report was verified electronically.
[2017-03-20] MEDS: MONTELUKAST SODIUM 10 MG TAB PO SCH (20:21)
[2017-03-20] MEDS: ATORVASTATIN 80 MG TAB PO SCH (20:21)
[2017-03-20 21:43] LABS: INTERNATIONAL NORMALIZED RATIO 1.1 RATIO; PROTHROMBIN TIME - PATIENT 11.4 SEC (9.8-11.6)
[2017-03-20 22:16] LABS: FOLATE 17.5 NG/ML (3.1-17.5)
[2017-03-21] VITALS (9 sets, daily range): BP systolic 111–145; BP diastolic 78–91; PULSE 55–70; RESP 18; TEMP 97.2–98; O2SAT 92–96
[2017-03-21] MEDS: PIPERACIL-TAZO 4.5 GM PREMIX 100 ML IV SCH ×4 (00:30→17:39)
[2017-03-21] MEDS ORDERED: PHARMACY ORDERED LAB ONE (04:45)
[2017-03-21] MEDS: VANCOMYCIN 1,500 MG/NS 500 ML IV SCH ×2 (05:23)
[2017-03-21] MEDS: methylPREDNISolone SOD SUCC 40 MG/1 ML VIAL IV PUSH SCH ×3 (05:24→21:41)
[2017-03-21 05:57] LABS: HEMATOCRIT 41.9 % (39.0-51.0); HEMOGLOBIN 13.9 GM/DL (13.0-17.0); MEAN CELL VOLUME 86.2 FL (80.0-100.0); MEAN CORPUSCULAR HEMOGLOBIN 28.6 PG (27.0-34.0); MEAN CORPUSCULAR HGB CONC 33.2 % (32.0-36.0); MEAN PLATELET VOLUME 9.2 FL (7.0-11.0); PLATELET COUNT 133 TH/MM3 (150-450); RED BLOOD COUNT 4.86 MIL/MM3 (4.50-5.90); RED CELL DISTRIBUTION WIDTH 14.2 % (11.6-17.2)
[2017-03-21 06:02] LABS: INTERNATIONAL NORMALIZED RATIO 1.1 RATIO; PROTHROMBIN TIME - PATIENT 11.6 SEC (9.8-11.6)
[2017-03-21 06:16] LABS: ALBUMIN 2.4 GM/DL (3.4-5.0); AST (GOT) 19 U/L (15-37); BICARBONATE 22.7 MEQ/L (21.0-32.0); BLOOD UREA NITROGEN 31 MG/DL (7-18); CALCIUM 7.9 MG/DL (8.5-10.1); CHLORIDE 105 MEQ/L (98-107); CREATININE 0.85 MG/DL (0.60-1.30); GLOMERULAR FILTRATION RATE 87 ML/MIN (>89); GLUCOSE,RANDOM 98 MG/DL (74-106); SODIUM (NA) 137 MEQ/L (136-145)
[2017-03-21 06:20] LABS: ALKALINE PHOSPHATASE 48 U/L (45-117); ALT (GPT) 32 U/L (12-78); TOTAL BILIRUBIN ADULT 0.7 MG/DL (0.2-1.0); TOTAL PROTEIN 5.7 GM/DL (6.4-8.2); VANCOMYCIN TROUGH 20.6 MCG/ML (5.0-10.0)
[2017-03-21] MEDS: SODIUM CHLORIDE 0.9% FLUSH 10 ML FLUSH IV FLUSH SCH ×2 (07:44→20:32)
--- NOTE | 2017-03-21 08:12 | MB ---
cc: AMPARO CHAWLA MD DATE OF CONSULTATION 03/20/2017 CHIEF COMPLAINT 1. Peripheral arterial disease with arterial thrombosis. 2. Right cerebellar hemorrhage. 3. Bilateral lower extremity DVT. HISTORY OF PRESENT ILLNESS Mr. Gallagher is a 76-year-old gentleman with a history of peripheral arterial disease who was admitted to the hospital on March 05, 2017, with shortness of breath. He was evaluated by Vascular Surgery for further evaluation of worsening peripheral vascular disease and superficial femoral artery occlusion. He is status post IR procedure with t-PA lysis and he eventually ended up undergoing a fem-pop bypass. He developed dysarthric speech and Neurology was consulted for possible right cerebellar infarct. The MRI of the brain showed an acute right cerebellar ischemic infarction with punctate infarcts the right occipital and left parietal lobes. Given the minimal degree of intracranial hemorrhage, anticoagulation is on hold. Recent lower extremity ultrasound with occlusive thrombus in the left peroneal vein and in the right femoral vein, occlusive thrombus on the right present in the superficial femoral vein and the deep femoral vein. PAST MEDICAL HISTORY 1. CAD. 2. Hypertension 3. BPH. 4. GERD. 5. PAD. 6. Erythrocytosis, sees oncologist for occasional phlebotomy roughly every several months, last seen in January 2017. 7. Transient global amnesia three years ago. PAST SURGICAL HISTORY 1. Coronary artery stent in 2007. 2. Cholecystectomy in 2010. 3. Hernia disc repair in 2005. ALLERGIES CHOCOLATE MILK. ORANGE JUICE. PEANUTS. FAMILY HISTORY Mother with hypertension. Father with history of stroke. SOCIAL HISTORY Living in [place] but is down here for two months. Good support system with his . Usually drinks one to two beers with dinner. Past history of tobacco abuse as a teenager, none currently. No illegal drug use. PHYSICAL EXAMINATION VITAL SIGNS: Temperature 97.6, pulse 64, respiratory rate 28, blood pressure 142/81, pulse ox 92%. GENERAL: Well-developed, well-nourished man in no distress. EYES: No scleral icterus. NECK: Supple with no palpable lymphadenopathy. LUNGS: Clear to auscultation bilaterally. CARDIOVASCULAR: Regular rate and rhythm. No murmurs. ABDOMEN: Soft, nontender, nondistended. Bowel sounds present. EXTREMITIES: With no edema. NEURO: Slurred speech. Lower extremity weakness. LABORATORY STUDIES White blood cell count of 17.5, hemoglobin 14.5, platelet count of 116,000, platelet count during hospital stay has been approximately low 200s. Hypercoagulable workup performed and Factor V Leiden mutation is negative. Protein-S activity is within normal limits. Antithrombin III activity is high at 121, elevated AT-III level is not clinically significant. Protein C activity is high and this is also of unknown clinical significance. Lupus anticoagulant is negative. Coags are within normal limits as well as fibrinogen. Renal function is 0.73, total bili is elevated at 1.1, was previously 0.4. He has a leukocytosis, however, on admission. This has been normal. Left shift with elevated neutrophil count. ASSESSMENT AND PLAN 1. Thrombocytopenia: We will order heparin and platelet antibody to rule out delayed onset HIT. 2. Leukocytosis reactive in the setting of hospitalization. 3. Venous and arterial thrombosis. Hypercoagulable workup including Factor V Leiden, protein C, protein S, antiphospholipid antibody, antithrombin III negative. We will work up for prothrombin gene mutation. Antiphospholipid IgM antibody is high; however, for a diagnosis of antiphospholipid antibody syndrome, this would have to be in the greater than 99% percentile on two separate occasions. Could recheck that in 12 weeks. Regardless if it is positive or negative will not change how we treat the current settings. 4. Intracranial hemorrhage. Anticoagulation on hold due to extensive thrombus. Would recommend placement of IVC filter in the interim with goal to place the patient on anticoagulation in the outpatient setting once cleared by Neurology. The inpatient hematology team will continue to follow along. MD APOLINAR Medina/EMILIO /7:12 PM /7:46 AM GALILEA
--- NOTE | 2017-03-21 08:32 | HHI.PR ---
Subjective Remarks ALERT NO SOB S/P REVASCULARIZATION Objective Vital Signs Date Time Temp Pulse Resp B/P (MAP) Pulse Ox O2 Delivery O2 Flow Rate FiO2 03/21/17 05:00 98.0 61 18 130/81 (97) 95 03/21/17 04:00 64 03/21/17 04:00 Nasal Cannula 4.50 03/21/17 00:00 Nasal Cannula 4.50 03/21/17 00:00 69 03/20/17 23:52 97.5 74 18 112/70 (84) 93 03/20/17 21:10 97.2 96 18 97/71 (80) 91 03/20/17 20:00 94 Nasal Cannula 4.50 03/20/17 20:00 93 03/20/17 19:45 95 Nasal Cannula 4.50 03/20/17 16:00 64 03/20/17 16:00 97.6 67 20 142/81 (101) 92 03/20/17 12:27 Nasal Cannula 4.00 03/20/17 12:00 97.5 68 20 119/73 (88) 92 03/20/17 12:00 58 I/O 03/20/17 03/20/17 03/20/17 03/21/17 03/21/17 03/21/17 07:00 15:00 23:00 07:00 15:00 23:00 Intake Total 200 ml 515 ml 240 ml 100 ml Output Total 200 ml 175 ml Balance 0 ml 515 ml 65 ml 100 ml Intake Oral 240 ml 0 ml IV Total 200 ml 515 ml 100 ml Output Urine Total 200 ml 175 ml # Voids 2 7 # Bowel Movements 1 1 1 Result Diagram: 03/21/1740103/21/17 0402 Objective Remarks GENERAL: SKIN: Warm and dry. HEAD: Atraumatic. Normocephalic. EYES: Pupils equal and round. No scleral icterus. No injection or drainage. ENT: No nasal bleeding or discharge. Mucous membranes pink and moist. NECK: Trachea midline. No JVD. CARDIOVASCULAR: Regular rate and rhythm. RESPIRATORY: No accessory muscle use. Clear to auscultation. Breath sounds equal bilaterally. GASTROINTESTINAL: Abdomen soft, non-tender, nondistended. Hepatic and splenic margins not palpable. MUSCULOSKELETAL: Extremities without clubbing, cyanosis, or edema. No obvious deformities. NEUROLOGICAL: Awake and alert. No obvious cranial nerve deficits. Motor grossly within normal limits. Five out of 5 muscle strength in the arms and legs. Normal speech. PSYCHIATRIC: Appropriate mood and affect; insight and judgment normal. Assessment and Plan Assessment and Plan ? BRONCHIAL ASTHMA, now stable PVD s/p CVA PLAN O2 NEEDED PRN ALBUTEROL INREASE ACTIVITY Krysta Chaparro MD Mar 21, 2017 08:32
[2017-03-21] MEDS: DOCUSATE SODIUM 50 MG/SENNA 8.6 MG TAB PO SCH ×2 (08:36→20:31)
[2017-03-21] MEDS: MULTIVITAMIN TAB PO SCH (08:36)
[2017-03-21] MEDS: DULoxetine HCl DR 30 MG CAP PO SCH (08:36)
[2017-03-21] MEDS: POLYETHYLENE GLYCOL 17 GM PKG PO SCH (08:37)
[2017-03-21] MEDS: MAGNESIUM HYDROXIDE SUSP 30 ML CUP PO SCH ×2 (08:37→20:31)
[2017-03-21] MEDS: FINASTERIDE 5 MG TAB PO SCH (08:37)
[2017-03-21] MEDS: PANTOPRAZOLE SOD 40 MG DELAYED RELEASE TAB PO SCH (08:37)
[2017-03-21] MEDS: GABAPENTIN 300 MG CAP PO SCH ×2 (08:37→20:32)
[2017-03-21] MEDS: LISINOPRIL 10 MG TAB PO SCH (08:37)
[2017-03-21] MEDS: HEPARIN SODIUM - SQ 10,000 UNITS/ML VIAL SQ SCH ×2 (08:38→20:32)
[2017-03-21] MEDS: ASPIRIN 81 MG CHEW TAB CHEW SCH (08:38)
[2017-03-21] MEDS: FLUTICASONE 200 MCG/VILANTEROL 25 MCG INHALER INH SCH (08:38)
[2017-03-21] MEDS: METOPROLOL TARTRATE 50 MG TAB PO SCH ×2 (08:41→20:31)
--- NOTE | 2017-03-21 08:58 | HHI.PR ---
Subjective Remarks ?afib?? one or two strips i notified cards to review them antiphospholidid up slightly dvt Objective Vital Signs Date Time Temp Pulse Resp B/P (MAP) Pulse Ox O2 Delivery O2 Flow Rate FiO2 03/21/17 05:00 98.0 61 18 130/81 (97) 95 03/21/17 04:00 64 03/21/17 04:00 Nasal Cannula 4.50 03/21/17 00:00 Nasal Cannula 4.50 03/21/17 00:00 69 03/20/17 23:52 97.5 74 18 112/70 (84) 93 03/20/17 21:10 97.2 96 18 97/71 (80) 91 03/20/17 20:00 94 Nasal Cannula 4.50 03/20/17 20:00 93 03/20/17 19:45 95 Nasal Cannula 4.50 03/20/17 16:00 64 03/20/17 16:00 97.6 67 20 142/81 (101) 92 03/20/17 12:27 Nasal Cannula 4.00 03/20/17 12:00 97.5 68 20 119/73 (88) 92 03/20/17 12:00 58 I/O 03/20/17 03/20/17 03/20/17 03/21/17 03/21/17 03/21/17 07:00 15:00 23:00 07:00 15:00 23:00 Intake Total 200 ml 515 ml 240 ml 100 ml Output Total 200 ml 175 ml Balance 0 ml 515 ml 65 ml 100 ml Intake Oral 240 ml 0 ml IV Total 200 ml 515 ml 100 ml Output Urine Total 200 ml 175 ml # Voids 2 7 # Bowel Movements 1 1 1 Result Diagram: 03/21/17 0402 03/21/17 0402 Objective Remarks left eye still slight turn in no diplopia must be old no nystag vff face sym 5/ t/o awake alert moves all well voice little better pupil = Assessment and Plan Assessment and Plan imp bilat cva old left cbllr new r cbllr with some blood in it new r parietal and left parietal left vert dom and ? if origin stenosis check cta check holter normally i would coumadinze but there is a hemorrhagic sign component to the r cbllr infarct so will wait few weeks does he need to be on asa and effient or could he dc later with blood in cbllm preferred oob need to watch his neuro exam with the r cbllr infarct 03/15/17 overall stable watch lle for some weakness vs post op pain mri last pm stable and could go to floor tomorrow if stable asa 81 ok no other blodd thinners but ini future will do anticoagulation as o/p fu holter cta left vert origin nl 03/21/17 stable neuro bilat cva ? afib cards to review tele strip dvt cta neck neg vert origin dz for filter antiph lipdi ab slight inc heme on case he has a mod amt blood in that r cbllr cva asa on sq hep now i had scd order in on 03/14/17 Lupillo Chuo MD Mar 21, 2017 08:58
--- NOTE | 2017-03-21 09:58 | HHI.FPPN ---
Subjective Remarks Patient seen and examined this morning by medical team. No acute events overnight per report. Patient's main complaint this morning is constipation, however per chart review and nursing report he has had 2 BMs over the last 24 hours. He is able that PT is "going ok" and is ready to be discharged to rehab. We thoroughly discussed his new LE DVTs and the need for PE prevention. Due to his recent CVA, he is still not a candidate for anticoagulation and therefore has been referred to IR for an IVC filter placement. He communicated understanding and agreed with the medical plan. Otherwise he has no complaints and denies any new fevers, chills, SOB, chest pain, NVD, ABD pain, or calf tenderness. Objective Vitals Vital Signs Date Time Temp Pulse Resp B/P (MAP) Pulse Ox O2 Delivery O2 Flow Rate FiO2 03/21/17 05:00 98.0 61 18 130/81 (97) 95 03/21/17 04:00 64 03/21/17 04:00 Nasal Cannula 4.50 03/21/17 00:00 Nasal Cannula 4.50 03/21/17 00:00 69 03/20/17 23:52 97.5 74 18 112/70 (84) 93 03/20/17 21:10 97.2 96 18 97/71 (80) 91 03/20/17 20:00 94 Nasal Cannula 4.50 03/20/17 20:00 93 03/20/17 19:45 95 Nasal Cannula 4.50 03/20/17 16:00 64 03/20/17 16:00 97.6 67 20 142/81 (101) 92 03/20/17 12:27 Nasal Cannula 4.00 03/20/17 12:00 97.5 68 20 119/73 (88) 92 03/20/17 12:00 58 I/O 03/20/17 03/20/17 03/20/17 03/21/17 03/21/17 03/21/17 07:00 15:00 23:00 07:00 15:00 23:00 Intake Total 200 ml 515 ml 240 ml 100 ml Output Total 200 ml 175 ml Balance 0 ml 515 ml 65 ml 100 ml Intake Oral 240 ml 0 ml IV Total 200 ml 515 ml 100 ml Output Urine Total 200 ml 175 ml # Voids 2 7 # Bowel Movements 1 1 1 Result Diagram: 03/21/1740103/21/17401 Objective Remarks GENERAL: Elderly gentleman lying in bed currently in no acute distress HEENT: Atraumatic, normocephalic with EOMI. No rhinorrhea. MMM. No visible LAD or JVD appreciated. RESPIRATORY: Clear to auscultation bilaterally with no CRW appreciated. Patient currently on nasal cannula. No increased WOB. CARDIOVASCULAR: RRR, no m/r/g. Radial and DP pulses 2+ and symmetric bilaterally. Brisk capillary refill. ABDOMEN: Soft, nondistended, nontender with BS in all 4 quadrants. No masses appreciated. MUSCULOSKELETAL: No edema appreciated. BL calf tenderness improved from yesterday, negative Brenna's bilaterally. No swelling or skin changes. 2+ DP and PT pulses BL. LLE Femoropopliteal bypass incision sites, CDI bandages. Pulses 2+ b/l. Sensation intact b/l. Moving toes and legs b/l. SKIN: Essentially clear with no significant rash or lesions. Adequate skin turgor. NEUROLOGICAL: Grossly afocal, slurred speech, stable from prior exam. Patient does attempt to communicate verbally, however he primarily communicates through hand motions and yes/no questions. Mood overall improved from prior evaluations. Procedures tPA therapy for thrombolysis of left SFA 03/08-03/09 A/P Assessment and Plan 76-year-old male s/p Fempop bypass surgery on 03/09 subsequently found to have acute right cerebellar infarct on 03/13. Patient is currently stable. 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 - SEAN: atrial septal aneurysm and PFO. PFO closure not recommended. Otherwise , unremarkable. -Continue PT/OT/ST, patient encouraged to participate in therapy to assist with discharge planning Previous Workup: Patient with slurred speech on 03/[address] and MRI showing R cerebellar edema and infarction consistent with CVA. -Head CT: 3.5 x 3.6 cm low attenuation area in the right cerebellar hemisphere area most characteristic of edema which could be secondary to underlying mass or infarction. Second smaller focal peripheral area of decreased attenuation involving the right parietal occipital watershed region concerning for edema as well. Further evaluation with MRI recommended. -Brain MRI: Proximally 5cm infarct of the right cerebellar hemisphere with small punctate infarcts in the right occipital lobe and left parietal lobe. Remote lacunar infarcts of the right basal ganglia and cerebellum. -Head MRA: Patient within normal limits for age -Neck MRA: No significant stenosis in the carotid arteries. Left vertebral artery is dominant. -Neck CTA: Minimal calcific plaquing nonstenotic bilateral carotid bulbs and initial segment of the right internal carotid. -Repeat Brain MRI: no significant change in the appearance of large acute infarction involving the right cerebellum as well as the much smaller acute infarctions involving the right occipital lobe and left high parietal cortex. -Repeat head CT: Stable right cerebellar infarction, fourth ventricle open, no signs of hydrocephalus (2) DVT (deep venous thrombosis) ICD Codes: I82.409 - Acute embolism and thrombosis of unspecified deep veins of unspecified lower extremity Status: Acute Plan: -LE US 03/20/17: Positive venous Doppler bilaterally above the knee on the R and below the knee on the L. -Anticoagulation held due to hemorrhagic stroke -Re-evaluation after repeat MRI in 1 week per neurology -IR consulted for IVC filter 03/20/17 -Hematology consulted, appreciate recommendations (3) Pneumonia ICD Codes: J18.9 - Pneumonia, unspecified organism Plan: CXR 03/17 demonstrated consolidation with infrahilar region on the right, possible aspiration Pneumonia -Pulmonology previously consulted, appreciate recommendations -Continue Methylprednisolone 80mg IV push q8hr, start to wean as tolerated -PFTs ordered Continue Vancomycin, pharmacy consulted for dosing Continue Zosyn 4.5 GM IV q6h (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 -Thoracic aneurysm aneurysm will be managed medically and with close follow- up for imaging -Goal systolic blood pressure of less than 120 (6) Flash pulmonary edema ICD Codes: J81.0 - Acute pulmonary edema Status: Resolved Plan: -Pulmonology consulted, appreciate recommendations -Continue Methylprednisolone 80mg IV push q8hr, start to wean as tolerated -PFTs ordered -Pt now on 4L NC, wean as tolerated -Continue DuoNebs and incentive spirometry Previous workup: Chest x-ray on admission significant for bibasilar subsegmental atelectasis ACS workup on admission negative D-dimer elevated on admission to 2.51, CTA negative for PE but did show 4.3 cm ascending thoracic aortic aneurysm TSH WNL at 2.56 -Course complicated by flash pulmonary edema on 03/13/17 -Repeat 2-D echo with Doppler ordered by vascular surgery, demonstrated EF of 55 -50, doppler parameters consistent with impaired left ventricular relation ( grade 1 diastolic dysfunction) (7) Superficial femoral artery occlusion ICD Codes: I70.209 - Unspecified atherosclerosis of [place] arteries of extremities, unspecified extremity Status: Resolved Plan: -Patient status post left femoropopliteal bypass femoral endarterectomy popliteal endarterectomy and patch on 03/09 -Patient w/ hx of PAD (8) HTN (hypertension) ICD Codes: I10 - Essential (primary) hypertension Status: Chronic Plan: -Continue lisinopril 10 mg daily, metoprolol tartrate 50 mg PO BID -Vasotec 1.25 mg IV when necessary for systolic blood pressure greater than 160 , diastolic blood pressure greater than 90 -Goal systolic blood pressure of less than 120 due to thoracic aortic aneurysm (9) CAD (coronary artery disease) ICD Codes: I25.10 - Atherosclerotic heart disease of [place] coronary artery without angina pectoris Status: Chronic Plan: -Patient with known CAD, status post coronary stents placed in 2007 -Continue home atorvastatin 80 mg at night, ASA 81 mg daily (10) BPH (benign prostatic hyperplasia) ICD Codes: N40.0 - Benign prostatic hyperplasia without lower urinary tract symptoms Plan: Continue home finasteride 5 mg by mouth daily (11) Constipation ICD Codes: K59.00 - Constipation, unspecified Status: Acute Plan: BM 3 days ago after Fleet enema -Miralax scheduled previously -Milk of magnesia scheduled 2/ -Continue constipation protocol. (12) FEN Plan: Diet: Heart healthy diet with nectar thickened liquids Oral fluids only Replete electrolytes as needed Zofran as needed for nausea Tylenol as needed for fever Protonix for GI prophylaxis Heparin for DVT prophylaxis 5000u BID Problem Qualifiers (1) DVT (deep venous thrombosis): (2) HTN (hypertension): Qualified Codes: I10 - Essential (primary) hypertension (3) CAD (coronary artery disease): Qualified Codes: I25.10 - Atherosclerotic heart disease of [place] coronary artery without angina pectoris (4) Constipation: Qualified Codes: K59.00 - Constipation, unspecified Lv Ordaz MD R2 Mar 21, 2017 09:58
--- NOTE | 2017-03-21 11:41 | PD.RAD ---
Post Procedure Progress Note Pre Procedure Diagnosis: (1) DVT (deep venous thrombosis) Post Procedure Diagnosis: (1) DVT (deep venous thrombosis) Procedure Date: Mar 21, 2017 Supervising Radiologist: uLpillo Arellano Proceduralist/Assist: Basmi Graham, RT(R), Deisy Carver RT(R) Anesthesia: Local Plan of Activity Patient to Unit: Nursing Unit Patient Condition: Fair See PACS Report for procedural detail/treatment Vascular-Venous Procedure Procedure 1 Procedure Site: Abdominal Procedure(s): Permanent IVC Filter Access Access Site(s): Right Jugular Vein Lupillo Arellano MD Mar 21, 2017 11:41
[2017-03-21] MEDS ORDERED: IOHEXOL 350 MG/ML 50 ML BTL (for RAD DIAG) OTHER ONE (12:37)
--- NOTE | 2017-03-21 14:14 | RADRPT ---
EXAM DATE/TIME: 03/21/2017 11:48 [place] COMPARISON: No previous studies available for comparison. INDICATIONS : Patient presents with deep vein thrombosis in need of inferior vena cava filter placement. MEDICAL HISTORY : CAD HTN BPH GERD PAD Erythrocytosis Transient global amnesia SURGICAL HISTORY : Coronary artery stent Cholecystectomy Hernia disc repair ENCOUNTER: Initial ACUITY: 2 weeks PAIN SCORE: 0/10 LOCATION: N/A FLUORO TIME: 1.1 minutes IMAGE SERIES: 2 ACCESS SITE: Right Internal jugular vein CONTRAST: 1.) 10 cc Omnipaque (iohexol) 350 DEVICE(S): 1.) Inferior vena cava B King Venatech filter PROCEDURE : 1. Ultrasound-guided venipuncture. 2. Inferior venacavogram. 3. Inferior vena cava filter placement. 4. Conscious sedation with continuous EKG and oximetry monitoring. The risks, benefits and alternatives to the procedure were explained and verbal and written consent w as obtained. The site was prepped in sterile fashion. Full sterile technique was used, including ca p, mask, sterile gloves and gown and a large sterile sheet. Hand hygiene and 2% chlorhexidine and/or betadine/alcohol prep was utilized per protocol for cutaneous antisepsis. Sterile gel and sterile p robe cover were utilized for ultrasound guidance. The skin and subcutaneous tissues were infiltrated with local anesthetic solution. With ultrasound and fluoroscopic guidance the targeted vein was punctured and a vascular sheath was p laced. Inferior venacavogram was performed to demonstrate level of renal veins. No caval thrombus was identified. The prescribed filter was deployed in the infrarenal inferior vena cava. Following deplo yment the filter was identified in good position. Conscious sedation was performed with the prescribed dosages and duration as above in the presence of an independent trained radiology nurse to assist in the monitoring of the patient. EKG and oximetry remained stable throughout the procedure. The patient tolerated the procedure well and there were n o complications. The patient was sent to post anesthesia recovery in stable condition. CONCLUSION: Uncomplicated inferior vena cava filter placement as above. Lupillo Arellano MD on March 21, 2017 at 14:12 Board Certified Radiologist. This report was verified electronically.
--- NOTE | 2017-03-21 14:52 | PD.CARD.PN ---
Subjective Subjective Remarks Denies CP, dyspnea, dizziness, palpitations, PND. Objective Medications Item Value Date Time Aspirin 162 mg 03/19/17 09 (Aspirin Chew) DAILY/CHEW Heparin Sodium 5,000 units 03/19/17 0900 (Porcine) BID/SQ (Heparin Inj) Metoprolol 50 mg 03/06/17 1000 Tartrate Q12HR/PO 03/21/17 0841 (Lopressor) Lisinopril 10 mg 03/06/17 0900 (Prinivil) DAILY/PO 03/21/17 0837 Atorvastatin 80 mg 03/05/175 Calcium HS/PO 03/20/172020 (Lipitor) Current Medications Medications (Trade) Dose Ordered Sig/Lizbeth Route Start Time Stop Time Status Last Admin (NS Flush) 2 ml UNSCH PRN IV FLUSH 03/05/17 22:00 (NS Flush) 2 ml BID IV FLUSH 03/06/17 09:00 03/21/17 07:44 (Lipitor) 80 mg HS PO 03/05/17 22:15 03/20/17 20:21 (Proscar) 5 mg DAILY PO 03/06/17 09:00 03/21/17 08:37 (Breo Ellipta 200-25 Inh) 1 puff DAILY INH 03/06/17 09:00 03/21/17 08:38 (Neurontin) 300 mg BID PO 03/05/17 22:15 03/21/17 08:37 (Prinivil) 10 mg DAILY PO 03/06/17 09:00 03/21/17 08:37 (Miralax) 17 gm DAILY PO 03/06/17 09:00 03/21/17 08:37 (Effient) 10 mg DAILY PO 03/06/17 09:00 Future Hold 03/12/17 08:51 (Protonix) 40 mg DAILY PO 03/06/17 09:00 03/21/17 08:37 (Theragran) 1 tab DAILY PO 03/06/17 09:00 03/21/17 08:36 (Albuterol Neb) 2.5 mg Q4HR WHILE AWAKE NEB PRN NEB 03/05/17 22:15 03/20/17 19:43 (Zofran Inj) 4 mg Q6HR PRN IV PUSH 03/05/17 22:15 03/17/17 20:32 (Tylenol) 325 mg Q4H PRN PO 03/05/17 22:15 03/11/17 00:55 (Lopressor) 50 mg Q12HR PO 03/06/17 10:00 03/21/17 08:41 (Singulair) 10 mg HS PO 03/06/17 21:00 03/20/17 20:21 (Morphine Inj) 4 mg Q3H PRN IV PUSH 03/09/17 16:30 03/13/17 09:57 (Percocet 5-325 Mg) 1 tab Q4H PRN PO 03/09/17 16:30 03/16/17 23:18 (Arleth-Colace) 1 tab BID PO 03/14/17 12:30 03/21/17 08:36 (Senokot) 17.2 mg Q12H PRN PO 03/14/17 12:30 (Dulcolax Supp) 10 mg DAILY PRN RECTAL 03/14/17 12:30 (Lactulose Liq) 30 ml DAILY PRN PO 03/14/17 12:30 03/14/17 15:23 (Cymbalta Dr) 30 mg DAILY PO 03/16/17 10:00 03/21/17 08:36 Pharmacy Profile Note 0 ml @ 0 mls/hr UNSCH OTHER 03/17/17 15:30 Piperacillin Sod/ Tazobactam Sod 100 ml @ 200 mls/hr Q6H IV 03/17/17 18:00 03/21/17 11:57 (SoluMEDROL INJ) 80 mg Q8HR IV PUSH 03/17/17 22:00 03/21/17 05:24 (Aspirin Chew) 162 mg DAILY CHEW 03/19/17 09:00 03/20/17 09:03 (Heparin Inj) 5,000 units BID SQ 03/19/17 09:00 03/20/17 20:21 (Milk Of Magnesia Liq) 30 ml Q12HR PO 03/19/17 10:07 03/21/17 08:37 Vancomycin HCl 1500 mg/Sodium Chloride 515 ml @ 257.5 mls/ hr Q18H IV 03/22/17 00:00 Miscellaneous Information SPECIFIC LAB TO BE DRAWN:VANCOMYCIN TROUGH DATE TO... ONCE ONCE .XX 03/23/17 11:45 03/23/17 11:46 Vital Signs / I&O Vital Signs Date Time Temp Pulse Resp B/P (MAP) Pulse Ox O2 Delivery O2 Flow Rate FiO2 03/21/17 12:51 96 Nasal Cannula 5.00 03/21/17 08:00 97.9 70 18 135/88 (104) 92 03/21/17 05:00 98.0 61 18 130/81 (97) 95 03/21/17 04:00 64 03/21/17 04:00 Nasal Cannula 4.50 03/21/17 00:00 Nasal Cannula 4.50 03/21/17 00:00 69 03/20/17 23:52 97.5 74 18 112/70 (84) 93 03/20/17 21:10 97.2 96 18 97/71 (80) 91 03/20/17 20:00 94 Nasal Cannula 4.50 03/20/17 20:00 93 03/20/17 19:45 95 Nasal Cannula 4.50 03/20/17 16:00 64 03/20/17 16:00 97.6 67 20 142/81 (101) 92 I/O 03/20/17 03/20/17 03/20/17 03/21/17 03/21/17 03/21/17 07:00 15:00 23:00 07:00 15:00 23:00 Intake Total 200 ml 515 ml 240 ml 100 ml Output Total 200 ml 175 ml Balance 0 ml 515 ml 65 ml 100 ml Intake Oral 240 ml 0 ml IV Total 200 ml 515 ml 100 ml Output Urine Total 200 ml 175 ml # Voids 2 7 # Bowel Movements 1 1 1 Physical Exam GENERAL: Well developed, well nourished. No acute distress. HEENT: Jugular venous pressure is normal. CHEST: Lungs clear to auscultation anteriorly. CARDIAC: Regular rate and rhythm without S3, S4, or murmur. ABDOMEN: Soft, nontender, no hepatosplenomegaly. Bowel sounds present. EXTREMITIES: No clubbing, cyanosis. Trace edema. Laboratory Laboratory Tests Test 03/20/17 21:00 03/21/17 04:02 Blood Smear Pathologist Review Haptoglobin 174 MG/DL Prothrombin Time 11.4 SEC 11.6 SEC Prothromb Time International Ratio 1.1 RATIO 1.1 RATIO Activated Partial Thromboplast Time 23.1 SEC 25.2 SEC Fibrinogen 220 mg/dL Lactate Dehydrogenase 448 U/L Vitamin B12 Level 1919 PG/ML Folate 17.5 NG/ML White Blood Count 17.0 TH/MM3 Red Blood Count 4.86 MIL/MM3 Hemoglobin 13.9 GM/DL Hematocrit 41.9 % Mean Corpuscular Volume 86.2 FL Mean Corpuscular Hemoglobin 28.6 PG Mean Corpuscular Hemoglobin Concent 33.2 % Red Cell Distribution Width 14.2 % Platelet Count 133 TH/MM3 Mean Platelet Volume 9.2 FL Blood Urea Nitrogen 31 MG/DL Creatinine 0.85 MG/DL Random Glucose 98 MG/DL Total Protein 5.7 GM/DL Albumin 2.4 GM/DL Calcium Level 7.9 MG/DL Alkaline Phosphatase 48 U/L Aspartate Amino Transf (AST/SGOT) 19 U/L Alanine Aminotransferase (ALT/SGPT) 32 U/L Total Bilirubin 0.7 MG/DL Sodium Level 137 MEQ/L Potassium Level 4.4 MEQ/L Chloride Level 105 MEQ/L Carbon Dioxide Level 22.7 MEQ/L Anion Gap 9 MEQ/L Estimat Glomerular Filtration Rate 87 ML/MIN Vancomycin Level Trough 20.6 MCG/ML Imaging Last 24 hours Impressions IVC Filter Placement X-Ray 03/21/17 0000 Signed Impressions: Service Date/Time: Tuesday, March 21, 2017 11:48 - CONCLUSION: Uncomplicated inferior vena cava filter placement as above. Lupillo Arellano MD Assessment and Plan Problem List: (1) Paroxysmal atrial fibrillation ICD Codes: I48.0 - Paroxysmal atrial fibrillation Status: Acute Plan: Monitoring reveals brief atrial fibrillation last night, mildly increased HR. Back in NSR today. Will start Amiodarone. In light of his high thromboembolic risk, rec anticoagulation therapy when possible. (2) CVA (cerebral vascular accident) ICD Codes: I63.9 - Cerebral infarction, unspecified Status: Acute Plan: SEAN unremarkable except atrial septal aneurysm and patent foramen ovale. (+) DVT's on venous Doppler of LE's. Patient now s/p IVC filter placement. Would not recommend PFO closure. (3) CAD (coronary artery disease) ICD Codes: I25.10 - Atherosclerotic heart disease of [place] coronary artery without angina pectoris Status: Chronic Plan: Stable. No recent angina. Continue baby aspirin. OK to keep off Prasugrel from my standpoint. (4) HTN (hypertension) ICD Codes: I10 - Essential (primary) hypertension Status: Chronic Plan: Stable. Normotensive. Code Status full code Discussed Condition With patient and Problem Qualifiers (1) CVA (cerebral vascular accident): (2) CAD (coronary artery disease): Qualified Codes: I25.10 - Atherosclerotic heart disease of [place] coronary artery without angina pectoris (3) HTN (hypertension): Qualified Codes: I10 - Essential (primary) hypertension Jair De Jesus MD Mar 21, 2017 14:52
[2017-03-21] MEDS: AMIODARONE 200 MG TAB PO SCH ×2 (15:13→20:31)
[2017-03-21 17:12] LABS: HEPARIN INDUCED PLATELET AB POSITIVE (NEGATIVE)
[2017-03-21] MEDS: ATORVASTATIN 80 MG TAB PO SCH (20:31)
[2017-03-21] MEDS: MONTELUKAST SODIUM 10 MG TAB PO SCH (20:31)
[2017-03-22] VITALS (10 sets, daily range): BP systolic 117–138; BP diastolic 67–92; PULSE 57–92; RESP 18–21; TEMP 97.1–98.4; O2SAT 91–95
[2017-03-22] MEDS ORDERED: VANCOMYCIN 1,500 MG/NS 500 ML IV SCH ×2
[2017-03-22] MEDS: oxyCODONE/ACETAMINOPHEN 5 MG/325 MG TAB PO PRN (00:43)
[2017-03-22] MEDS: PIPERACIL-TAZO 4.5 GM PREMIX 100 ML IV SCH ×3 (00:43→12:31)
[2017-03-22] MEDS: methylPREDNISolone SOD SUCC 40 MG/1 ML VIAL IV PUSH SCH ×3 (05:11→22:04)
--- NOTE | 2017-03-22 07:52 | PD.CARD.PN ---
Subjective Subjective Remarks Denies CP, dyspnea, dizziness, palpitations, nausea. Objective Medications Item Value Date Time Amiodarone HCl 400 mg 03/21/17 1500 (Cordarone) Q12HR/PO 03/21/172030 Aspirin 162 mg 03/19/17 0900 (Aspirin Chew) DAILY/CHEW Heparin Sodium 5,000 units 03/19/17899 (Porcine) BID/SQ 03/21/172031 (Heparin Inj) Metoprolol 50 mg 03/06/17 1000 Tartrate Q12HR/PO 03/21/172030 (Lopressor) Lisinopril 10 mg 03/06/17 0900 (Prinivil) DAILY/PO 03/21/1737 Atorvastatin 80 mg 03/05/172214 Calcium HS/PO 03/21/172030 (Lipitor) Current Medications Medications (Trade) Dose Ordered Sig/[place] Route Start Time Stop Time Status Last Admin (NS Flush) 2 ml UNSCH PRN IV FLUSH 03/05/17 22:00 (NS Flush) 2 ml BID IV FLUSH 03/06/17 09:00 03/21/17 20:32 (Lipitor) 80 mg HS PO 03/05/17 22:15 03/21/17 20:31 (Proscar) 5 mg DAILY PO 03/06/17 09:00 03/21/17 08:37 (Breo Ellipta 200-25 Inh) 1 puff DAILY INH 03/06/17 09:00 03/21/17 08:38 (Neurontin) 300 mg BID PO 03/05/17 22:15 03/21/17 20:32 (Prinivil) 10 mg DAILY PO 03/06/17 09:00 03/21/17 08:37 (Miralax) 17 gm DAILY PO 03/06/17 09:00 03/21/17 08:37 (Effient) 10 mg DAILY PO 03/06/17 09:00 Future Hold 03/12/17 08:51 (Protonix) 40 mg DAILY PO 03/06/17 09:00 03/21/17 08:37 (Theragran) 1 tab DAILY PO 03/06/17 09:00 03/21/17 08:36 (Albuterol Neb) 2.5 mg Q4HR WHILE AWAKE NEB PRN NEB 03/05/17 22:15 03/20/17 19:43 (Zofran Inj) 4 mg Q6HR PRN IV PUSH 03/05/17 22:15 03/17/17 20:32 (Tylenol) 325 mg Q4H PRN PO 03/05/17 22:15 03/11/17 00:55 (Lopressor) 50 mg Q12HR PO 03/06/17 10:00 03/21/17 20:31 (Singulair) 10 mg HS PO 03/06/17 21:00 03/21/17 20:31 (Morphine Inj) 4 mg Q3H PRN IV PUSH 03/09/17 16:30 03/13/17 09:57 (Percocet 5-325 Mg) 1 tab Q4H PRN PO 03/09/17 16:30 03/22/17 00:43 (Arleth-Colace) 1 tab BID PO 03/14/17 12:30 03/21/17 20:31 (Senokot) 17.2 mg Q12H PRN PO 03/14/17 12:30 (Dulcolax Supp) 10 mg DAILY PRN RECTAL 03/14/17 12:30 (Lactulose Liq) 30 ml DAILY PRN PO 03/14/17 12:30 03/14/17 15:23 (Cymbalta [address]) 30 mg DAILY PO 03/16/17 10:00 03/21/17 08:36 Pharmacy Profile Note 0 ml @ 0 mls/hr UNSCH OTHER 03/17/17 15:30 Piperacillin Sod/ Tazobactam Sod 100 ml @ 200 mls/hr Q6H IV 03/17/17 18:00 03/22/17 05:11 (SoluMEDROL INJ) 80 mg Q8HR IV PUSH 03/17/17 22:00 03/22/17 05:11 (Aspirin Chew) 162 mg DAILY CHEW 03/19/17 09:00 03/20/17 09:03 (Heparin Inj) 5,000 units BID SQ 03/19/17 09:00 03/21/17 20:32 (Milk Of Magnesia Liq) 30 ml Q12HR PO 03/19/17 10:07 03/21/17 20:31 Vancomycin HCl 1500 mg/Sodium Chloride 515 ml @ 257.5 mls/ hr Q18H IV 03/22/17 00:00 03/22/17 00:43 Miscellaneous Information SPECIFIC LAB TO BE DRAWN:VANCOMYCIN TROUGH DATE TO... ONCE ONCE .XX 03/23/17 11:45 03/23/17 11:46 (Cordarone) 400 mg Q12HR PO 03/21/17 15:00 03/21/17 20:31 Vital Signs / I&O Vital Signs Date Time Temp Pulse Resp B/P (MAP) Pulse Ox O2 Delivery O2 Flow Rate FiO2 03/22/17 04:00 94 Nasal Cannula 4.50 03/22/17 04:00 63 03/22/17 04:00 97.1 62 18 124/92 (103) 94 03/22/17 00:00 94 Nasal Cannula 4.50 03/22/17 00:00 58 03/21/17 20:00 97.9 64 18 111/78 (89) 94 03/21/17 20:00 66 03/21/17 20:00 94 Nasal Cannula 4.50 03/21/17 17:37 96 Nasal Cannula 5.00 03/21/17 16:00 97.6 66 18 125/89 (101) 94 03/21/17 16:00 63 03/21/17 12:51 96 Nasal Cannula 5.00 03/21/17 12:00 55 03/21/17 12:00 97.2 57 18 145/91 (109) 94 03/21/17 08:00 65 03/21/17 08:00 97.9 70 18 135/88 (104) 92 I/O 03/21/17 03/21/17 03/21/17 03/22/17 03/22/17 03/22/17 07:00 15:00 23:00 07:00 15:00 23:00 Intake Total 100 ml 0 ml 100 ml Output Total 25 ml Balance 100 ml -25 ml 100 ml Intake Oral 0 ml 0 ml IV Total 100 ml 100 ml Output Urine Total 25 ml # Voids 7 1 # Bowel Movements 1 0 Physical Exam GENERAL: Well developed, well nourished. No acute distress. HEENT: Jugular venous pressure is normal. CHEST: Lungs clear to auscultation anteriorly. CARDIAC: Regular rate and rhythm without S3, S4, or murmur. ABDOMEN: Soft, nontender, no hepatosplenomegaly. Bowel sounds present. EXTREMITIES: No clubbing, cyanosis. Trace edema. Laboratory Laboratory Tests Test 03/22/17 06:09 Assessment and Plan Problem List: (1) Paroxysmal atrial fibrillation ICD Codes: I48.0 - Paroxysmal atrial fibrillation Status: Acute Plan: Monitoring 03/20/17 revealed brief atrial fibrillation, mildly increased HR. No recurrence. Recommend continue oral Amiodarone. In light of his high thromboembolic risk, recommend anticoagulation therapy when possible. (2) CVA (cerebral vascular accident) ICD Codes: I63.9 - Cerebral infarction, unspecified Status: Acute Plan: SEAN unremarkable except atrial septal aneurysm and patent foramen ovale. (+) DVT's on venous Doppler of LE's. Patient now s/p IVC filter placement. Would not recommend PFO closure. Also now with evidence for paroxysmal atrial fibrillation as above. (3) CAD (coronary artery disease) ICD Codes: I25.10 - Atherosclerotic heart disease of [place] coronary artery without angina pectoris Status: Chronic Plan: Stable. No recent angina. Continue baby aspirin. OK to keep off Prasugrel. (4) HTN (hypertension) ICD Codes: I10 - Essential (primary) hypertension Status: Chronic Plan: Stable. Normotensive. Code Status full code Discussed Condition With patient Problem Qualifiers (1) CVA (cerebral vascular accident): (2) CAD (coronary artery disease): Qualified Codes: I25.10 - Atherosclerotic heart disease of [place] coronary artery without angina pectoris (3) HTN (hypertension): Qualified Codes: I10 - Essential (primary) hypertension Jair De Jesus MD Mar 22, 2017 07:52
[2017-03-22] MEDS: FINASTERIDE 5 MG TAB PO SCH (08:56)
[2017-03-22] MEDS: PANTOPRAZOLE SOD 40 MG DELAYED RELEASE TAB PO SCH (08:56)
[2017-03-22] MEDS: MULTIVITAMIN TAB PO SCH (08:57)
[2017-03-22] MEDS: LISINOPRIL 10 MG TAB PO SCH (08:57)
[2017-03-22] MEDS: ASPIRIN 81 MG CHEW TAB CHEW SCH (08:59)
[2017-03-22] MEDS: HEPARIN SODIUM - SQ 10,000 UNITS/ML VIAL SQ SCH (08:59)
[2017-03-22] MEDS: DULoxetine HCl DR 30 MG CAP PO SCH (08:59)
[2017-03-22] MEDS: AMIODARONE 200 MG TAB PO SCH ×2 (08:59→22:04)
[2017-03-22] MEDS: GABAPENTIN 300 MG CAP PO SCH ×2 (08:59→22:04)
[2017-03-22] MEDS: METOPROLOL TARTRATE 50 MG TAB PO SCH ×2 (08:59→22:05)
[2017-03-22] MEDS: MAGNESIUM HYDROXIDE SUSP 30 ML CUP PO SCH ×2 (08:59→22:03)
[2017-03-22] MEDS: DOCUSATE SODIUM 50 MG/SENNA 8.6 MG TAB PO SCH ×2 (08:59→22:04)
[2017-03-22] MEDS: SODIUM CHLORIDE 0.9% FLUSH 10 ML FLUSH IV FLUSH SCH ×2 (09:00→22:04)
[2017-03-22] MEDS: FLUTICASONE 200 MCG/VILANTEROL 25 MCG INHALER INH SCH (09:00)
[2017-03-22] MEDS: POLYETHYLENE GLYCOL 17 GM PKG PO SCH (09:00)
[2017-03-22 09:23] LABS: AUTOMATED NEUTROPHIL # 13.3 TH/MM3 (1.8-7.7); BASOPHIL % 0.1 % (0.0-2.0); HEMATOCRIT 43.5 % (39.0-51.0); HEMOGLOBIN 14.5 GM/DL (13.0-17.0); LYMPHOCYTE # 0.3 TH/MM3 (1.0-4.8); MEAN CELL VOLUME 85.9 FL (80.0-100.0); MEAN CORPUSCULAR HEMOGLOBIN 28.7 PG (27.0-34.0); MEAN CORPUSCULAR HGB CONC 33.3 % (32.0-36.0); MEAN PLATELET VOLUME 9.1 FL (7.0-11.0); MONO % 2.3 % (0.0-8.0); MONOCYTE # 0.3 TH/MM3 (0-0.9); NEUT % 95.6 % (16.0-70.0); PLATELET COUNT 126 TH/MM3 (150-450); RED BLOOD COUNT 5.07 MIL/MM3 (4.50-5.90); RED CELL DISTRIBUTION WIDTH 14.5 % (11.6-17.2)
[2017-03-22 09:39] LABS: BICARBONATE 23.6 MEQ/L (21.0-32.0); CREATININE 0.74 MG/DL (0.60-1.30)
--- NOTE | 2017-03-22 10:55 | EKG ---
Date Performed: 03/22/2017 Time Performed: 06:59:12 PTAGE: 76 years EKG: SINUS BRADYCARDIA BORDERLINE ECG PREVIOUS TRACING : 03/11/2017 10.09 DOCTOR: Aureliano Lee Interpretating Date/Time 03/22/2017 10:52:10
--- NOTE | 2017-03-22 12:00 | HHI.NSPN ---
(Magalie Hoskins) Note Status Status: Progress Note (Magalie Hoskins) Interval History Interval History Mr. Gallagher is a very pleasant 76 year old male. History was mostly obtained from his at bedside due to his severe dysarthria. His reports the patient presented to the ED on 03/05/2017 initially for shortness of breath. He has a known history of blood clots in his leg and is being managed in [place]. They are currently here on vacation for 2 months. Initially he was found to have elevated D-dimers but an angiography was negative for pulmonary embolism. He was evaluated by vascular surgeon Dr. Hernandez. He is being managed nonoperatively for thoracic aortic aneurysm. However underwent a fempop bypass surgery on 03/09/2017 due to an occlusion. The reports following surgery in recovery the patient was speaking well and normally. The following day she noted some dysarthria but attributed it to his current shortness of breath. He had an episode of acute hypoxia with respiratory distress and was monitored in CVICU. His reports his oxygenation improved however his dysarthria did not and he was worked up for possible CVA. He underwent an MRI brain which showed an acute right cerebellar ischemic infarction with punctate infarcts in the right occipital and left parietal lobes. No hydrocephalus. The patient does report positive headaches as well as possible increase drowsiness. However he remains and appear to be awake and alert. He denies focal weakness, extremity paresthesias, vision changes. Neurosurgical evaluation was requested. 03/15: remains severely dysarthric, but awake and alert overnight, no acute mental status changes. f/u CT Head this morning with stable right cerebellar infarction, fourth ventricle open, no signs of hydrocephalus. 03/22: Neurosurgery was asked to reevaluate for anticoagulation therapy. Patient currently doing well, remains with dysarthric speech, however awake and alert. Workup revealed no intracardiac emboli, however was noted to have paroxysmal atrial fibrillation on monitor. He has undergone IVC filter placement for DVTs. (Magalie Hoskins) Labs, Micro, & Vital Signs Results Date Time Temp Pulse Resp B/P (MAP) Pulse Ox O2 Delivery O2 Flow Rate FiO2 03/22/17 08:00 97.1 63 18 138/76 (96) 95 03/22/17 08:00 57 03/22/17 07:15 4.00 03/22/17 04:00 94 Nasal Cannula 4.50 03/22/17 04:00 63 03/22/17 04:00 97.1 62 18 124/92 (103) 94 03/22/17 00:00 97.8 60 18 133/90 (104) 94 03/22/17 00:00 94 Nasal Cannula 4.50 03/22/17 00:00 58 03/21/17 20:00 97.9 64 18 111/78 (89) 94 03/21/17 20:00 66 03/21/17 20:00 94 Nasal Cannula 4.50 03/21/17 17:37 96 Nasal Cannula 5.00 03/21/17 16:00 97.6 66 18 125/89 (101) 94 03/21/17 16:00 63 03/21/17 12:51 96 Nasal Cannula 5.00 03/21/17 12:00 55 03/21/17 12:00 97.2 57 18 145/91 (109) 94 Constitutional Vital Signs Date Time Temp Pulse Resp B/P (MAP) Pulse Ox O2 Delivery O2 Flow Rate FiO2 03/22/17 08:00 97.1 63 18 138/76 (96) 95 03/22/17 08:00 57 03/22/17 07:15 4.00 03/22/17 04:00 94 Nasal Cannula 4.50 03/22/17 04:00 63 03/22/17 04:00 97.1 62 18 124/92 (103) 94 03/22/17 00:00 97.8 60 18 133/90 (104) 94 03/22/17 00:00 94 Nasal Cannula 4.50 03/22/17 00:00 58 03/21/17 20:00 97.9 64 18 111/78 (89) 94 03/21/17 20:00 66 03/21/17 20:00 94 Nasal Cannula 4.50 03/21/17 17:37 96 Nasal Cannula 5.00 03/21/17 16:00 97.6 66 18 125/89 (101) 94 03/21/17 16:00 63 2/6/18 12:51 96 Nasal Cannula 5.00 03/21/17 12:00 55 03/21/17 12:00 97.2 57 18 145/91 (109) 94 (Magalie Hoskins) Review of Systems Constitutional: DENIES: Fever, Chills Cardiovascular: DENIES: Chest pain Neurologic: COMPLAINS OF: Poor Balance, DENIES: Headache, Seizures (Magalie Hoskins) Physical Exam Mr. Gallagher is comfortable, in no obvious distress during examination. Speech is dysarthric Neuro: Awake, alert. Speech is severely dysarthric. Can follow single and multi -step commands without apraxia. Cranial nerve examination: pupils to be equal, round, and reactive to light. Extra-ocular movements are intact with normal convergence. Facial motor and sensory function are normal and symmetrical. Tongue protruded midline. HENT: Normocephalic, atraumatic. Gross hearing intact bilaterally. Eyes: Pupils 4 mm equal round. Extra-ocular movement intact. Nonicteric sclera. No nistagmus Neck: soft, supple Extremities moves grossly muscle groups of both upper extremities including deltoid, biceps, triceps and museum exhibit designer. In the lower extremities exam limited he had gross proximal movement bilaterally, 4/5 distal lower extremity strength Sensory examination is intact light touch in both the upper and lower extremities Reflex: bilateral plantar flexion response. Cerebellar: mild dysmetria with right finger to nose, grossly intact left side Lungs: clear, nonlabored breathing, no wheezing Heart: S1, S2 Skin: warm and dry, no cyanosis. (Magalie Hoskins) Mr. Gallagher is comfortable, in no obvious distress during examination. Speech is dysarthric Neuro: Awake, alert. Speech is severely dysarthric. Can follow single and multi -step commands without apraxia. Cranial nerve examination: pupils to be equal, round, and reactive to light. Extra-ocular movements are intact with normal convergence. Facial motor and sensory function are normal and symmetrical. Tongue protruded midline. HENT: Normocephalic, atraumatic. Gross hearing intact bilaterally. Eyes: Pupils 4 mm equal round. Extra-ocular movement intact. Nonicteric sclera. No nistagmus Neck: soft, supple Extremities moves grossly muscle groups of both upper extremities including deltoid, biceps, triceps and museum exhibit designer. In the lower extremities exam limited he had gross proximal movement bilaterally, 4/5 distal lower extremity strength Sensory examination is intact light touch in both the upper and lower extremities Reflex: bilateral plantar flexion response. Cerebellar: mild dysmetria with right finger to nose, grossly intact left side Lungs: clear, nonlabored breathing, no wheezing Heart: S1, S2 Skin: warm and dry, no cyanosis. (Inder Tucker MD) Medications Current Medications Current Medications Medications (Trade) Dose Ordered Sig/Lizbeth Route PRN Reason Start Time Stop Time Status Last Admin Dose Admin Sodium Chloride (NS Flush) 2 ml UNSCH PRN IV FLUSH FLUSH AFTER USING IV ACCESS 03/05/17 22:00 Sodium Chloride (NS Flush) 2 ml BID IV FLUSH 03/06/17 09:00 03/22/17 09:00 Atorvastatin Calcium (Lipitor) 80 mg HS PO 03/05/17 22:15 03/21/17 20:31 Finasteride (Proscar) 5 mg DAILY PO 03/06/17 09:00 03/22/17 08:56 Fluticasone/ Vilanterol (Breo Ellipta 200-25 Inh) 1 puff DAILY INH 03/06/17 09:00 03/22/17 09:00 Gabapentin (Neurontin) 300 mg BID PO 03/05/17 22:15 03/22/17 08:59 Lisinopril (Prinivil) 10 mg DAILY PO 03/06/17 09:00 03/22/17 08:57 Polyethylene Glycol (Miralax) 17 gm DAILY PO 03/06/17 09:00 03/22/17 09:00 Prasugrel (Effient) 10 mg DAILY PO 03/06/17 09:00 Future Hold 03/12/17 08:51 Pantoprazole Sodium (Protonix) 40 mg DAILY PO 03/06/17 09:00 03/22/17 08:56 Multivitamins (Theragran) 1 tab DAILY PO 03/06/17 09:00 03/22/17 08:57 Albuterol Sulfate (Albuterol Neb) 2.5 mg Q4HR WHILE AWAKE NEB PRN NEB SHORTNESS OF BREATH 03/05/17 22:15 03/20/17 19:43 Ondansetron HCl (Zofran Inj) 4 mg Q6HR PRN IV PUSH NAUSEA OR VOMITING 03/05/17 22:15 03/17/17 20:32 Acetaminophen (Tylenol) 325 mg Q4H PRN PO FEVER 03/05/17 22:15 03/11/17 00:55 Metoprolol Tartrate (Lopressor) 50 mg Q12HR PO 03/06/17 10:00 03/22/17 08:59 Montelukast Sodium (Singulair) 10 mg HS PO 03/06/17 21:00 03/21/17 20:31 Morphine Sulfate (Morphine Inj) 4 mg Q3H PRN IV PUSH 6-10 03/09/17 16:30 03/13/17 09:57 Oxycodone/ Acetaminophen (Percocet 5-325 Mg) 1 tab Q4H PRN PO 3-5 03/09/17 16:30 03/22/17 00:43 Senna/Docusate Sodium (Arleth-Colace) 1 tab BID PO 03/14/17 12:30 03/22/17 08:59 Sennosides (Senokot) 17.2 mg Q12H PRN PO Moderate constipation 03/14/17 12:30 Bisacodyl (Dulcolax Supp) 10 mg DAILY PRN RECTAL SEVERE CONSITIPATION 03/14/17 12:30 Lactulose (Lactulose Liq) 30 ml DAILY PRN PO SEVERE CONSITIPATION 03/14/17 12:30 03/14/17 15:23 Duloxetine HCl (Cymbalta Dr) 30 mg DAILY PO 03/16/17 10:00 03/22/17 08:59 Pharmacy Profile Note 0 ml @ 0 mls/hr UNSCH OTHER 03/17/17 15:30 Piperacillin Sod/ Tazobactam Sod 100 ml @ 200 mls/hr Q6H IV 03/17/17 18:00 03/22/17 05:11 Methylprednisolone Sodium Succinate (SoluMEDROL INJ) 80 mg Q8HR IV PUSH 03/17/17 22:00 03/22/17 05:11 Aspirin (Aspirin Chew) 162 mg DAILY CHEW 03/19/17 09:00 03/22/17 08:59 Heparin Sodium (Porcine) (Heparin Inj) 5,000 units BID SQ 03/19/17 09:00 03/22/17 08:59 Magnesium Hydroxide (Milk Of Magnesia Liq) 30 ml Q12HR PO 03/19/17 10:07 03/22/17 08:59 Vancomycin HCl 1500 mg/Sodium Chloride 515 ml @ 257.5 mls/ hr Q18H IV 03/22/17 00:00 03/22/17 00:43 Miscellaneous Information SPECIFIC LAB TO BE DRAWN:VANCOMYCIN TROUGH DATE TO... ONCE ONCE .XX 03/23/17 11:45 03/23/17 11:46 Amiodarone HCl (Cordarone) 400 mg Q12HR PO 03/21/17 15:00 03/22/17 08:59 (Magalie Hoskins) Current Medications Current Medications Iohexol (Omnipaque 350 Inj) 70 ml STK-MED ONCE IVCONTRAST Last administered on 03/05/17at 20:00; Start 03/05/17 at 20:00; Stop 03/05/17 at 20:06; Status DC Nitroglycerin (Nitroglycerin 2% Oint) 1 inch ONCE ONCE TOPICAL Last administered on 03/05/17at 21:59; Start 03/05/17 at 21:00; Stop 03/05/17 at 21:01 ; Status DC Sodium Chloride (NS Flush) 2 ml UNSCH PRN IV FLUSH FLUSH AFTER USING IV ACCESS Last administered on 03/23/17at 05:34; Start 03/05/17 at 22:00 Sodium Chloride (NS Flush) 2 ml BID IV FLUSH Last administered on 03/22/17at 22: 04; Start 03/06/17 at 09:00 Aspirin (Aspirin Chew) 81 mg DAILY CHEW Last administered on 03/18/17at 08:59; Start 03/06/17 at 09:00; Stop 03/18/17 at 11:38; Status DC Atorvastatin Calcium (Lipitor) 80 mg HS PO Last administered on 03/22/17 22:04 ; Start 03/05/17 at 22:15 Finasteride (Proscar) 5 mg DAILY PO Last administered on 03/22/17at 08:56; Start 03/06/17 at 09:00 Fluticasone/ Vilanterol (Breo Ellipta 200-25 Inh) 1 puff DAILY INH Last administered on 03/22/17at 09:00; Start 03/06/17 at 09:00 Gabapentin (Neurontin) 300 mg BID PO Last administered on 03/22/17 22:04; Start 03/05/17 at 22:15 Lisinopril (Prinivil) 10 mg DAILY PO Last administered on 03/22/17 08:57; Start 03/06/17 at 09:00 Metoprolol Tartrate (Lopressor) 150 mg DAILY PO ; Start 03/06/17 at 09:00; Stop 03/06/17 at 09:00; Status DC Polyethylene Glycol (Miralax) 17 gm DAILY PO Last administered on 03/22/17 09: 00; Start 03/06/17 at 09:00 Prasugrel (Effient) 10 mg DAILY PO Last administered on 03/12/17 08:51; Start 03/06/17 at 09:00; Status Future Hold Pantoprazole Sodium (Protonix) 40 mg DAILY PO Last administered on 03/22/17 08: 56; Start 03/06/17 at 09:00 Multivitamins (Theragran) 1 tab DAILY PO Last administered on 03/22/17 08:57; Start 03/06/17 at 09:00 Non-Formulary Medication 2 cap DAILY PO ; Start 03/06/17 at 09:00; Stop at 09:00; Status DC Albuterol Sulfate (Albuterol Neb) 2.5 mg Q4HR WHILE AWAKE NEB PRN NEB SHORTNESS OF BREATH Last administered on 03/22/17 13:46; Start 03/05/17 at 22:15 Albuterol/ Ipratropium (Duoneb Neb) 1 ampule Q4HR WHILE AWAKE NEB NEB Last administered on 03/06/17at 07:36; Start 03/06/17 at 08:00; Stop 03/06/17 at 09:30 ; Status DC Ondansetron HCl (Zofran Inj) 4 mg Q6HR PRN IV PUSH NAUSEA OR VOMITING Last administered on 03/17/17 20:32; Start 03/05/17 at 22:15 Acetaminophen (Tylenol) 325 mg Q4H PRN PO FEVER Last administered on 03/11/17at 00:55; Start 03/05/17 at 22:15 Enalaprilat (Vasotec Inj) 1.25 mg Q6H PRN IV PUSH SBP>160, DBP>90; Start at 22:30; Stop 03/11/17 at 09:55; Status DC Metoprolol Tartrate (Lopressor) 50 mg Q12HR PO Last administered on 03/22/17at 22 :05; Start 03/06/17 at 10:00 Montelukast Sodium (Singulair) 10 mg HS PO Last administered on 03/22/17at 22:05 ; Start 03/06/17 at 21:00 Prednisone (Deltasone) 40 mg DAILY PO Last administered on 03/07/17at 09:03; Start 03/06/17 at 09:00; Stop 03/07/17 at 09:30; Status DC Methylprednisolone Sodium Succinate (SoluMEDROL INJ) 40 mg Q8HR IV PUSH Last administered on 03/17/17at 14:00; Start 03/07/17 at 14:00; Stop 03/17/17 at 19:52; Status DC Iohexol (Omnipaque 350 Inj) 85 ml STK-MED ONCE IVCONTRAST Last administered on 03/07/17at 11:46; Start 03/07/17 at 11:46; Stop 03/07/17 at 11:47; Status DC Enoxaparin Sodium (Lovenox Inj) 40 mg Q24H SQ Last administered on 03/07/17at 15 :55; Start 03/07/17 at 15:00; Stop 03/11/17 at 11:12; Status DC Midazolam HCl (Versed Inj) 2 mg STK-MED ONCE .ROUTE Last administered on 13:26; Start 03/08/17 at 13:26; Stop 03/08/17 at 13:27; Status DC Fentanyl Citrate (fentaNYL INJ) 100 mcg STK-MED ONCE .ROUTE Last administered on 03/08/17 13:43; Start 03/08/17 at 13:43; Stop 03/08/17 at 13:44; Status DC Fentanyl Citrate (fentaNYL INJ) 100 mcg STK-MED ONCE .ROUTE Last administered on 03/08/17 13:43; Start 03/08/17 at 13:43; Stop 03/08/17 at 13:44; Status DC Cefazolin Sodium/ Dextrose 50 ml @ As Directed STK-MED ONCE .ROUTE Last administered on 03/08/17at 14:48; Start 03/08/17 at 14:48; Stop 03/08/17 at 14:49 ; Status DC Midazolam HCl (Versed Inj) 2 mg STK-MED ONCE .ROUTE Last administered on at 14:20; Start 03/08/17 at 15:03; Stop 03/08/17 at 15:04; Status DC Iohexol (Omnipaque 350 Inj) 40 ml STK-MED ONCE OTHER Last administered on at 15:14; Start 03/08/17 at 15:14; Stop 03/08/17 at 15:15; Status DC Heparin Sodium (Porcine) (Heparin Inj) 10,000 units STK-MED ONCE .ROUTE Last administered on 03/09/17at 12:20; Start 03/09/17 at 09:15; Stop 03/09/17 at 09:16 ; Status DC Protamine Sulfate (Protamine Sulfate Inj) 50 mg STK-MED ONCE .ROUTE ; Start at 09:16; Stop 03/09/17 at 09:17; Status DC Lactated Ringer's 1,000 ml @ 30 mls/hr Q24H PRN IV SEE LABEL COMMENTS; Start at 11:15; Stop 03/12/17 at 11:14; Status DC Sodium Chloride 500 ml @ 30 mls/hr [id number] PRN IV SEE LABEL COMMENTS; Start at 11:15; Stop 03/12/17 at 11:14; Status DC Metoprolol Tartrate (Lopressor) 25 mg ASSISTANT IMPORT MANAGER PRN PO SEE LABEL COMMENTS; Start 03/09/17 at 11:15; Stop 03/12/17 at 11:14; Status DC Povidone Iodine (Betadine 5% Antisepsis Kit) 1 applic ASSISTANT IMPORT MANAGER PRN EACH NARE SEE LABEL COMMENTS; Start 03/09/17 at 11:15; Stop 03/12/17 at 11:14; Status DC Chlorhexidine Gluconate (Chlorhexidine 2% Cloth) 3 pack ASSISTANT IMPORT MANAGER PRN TOPICAL SEE LABEL COMMENTS; Start 03/09/17 at 11:15; Stop 03/12/17 at 11:14; Status DC Cefazolin Sodium (Ancef Inj) 2,000 mg ONCE ONCE IV Last administered on at 11:43; Start 03/09/17 at 12:16; Stop 03/09/17 at 12:54; Status DC Fentanyl Citrate (fentaNYL INJ) 500 mcg STK-MED ONCE .ROUTE ; Start 03/09/17 at 15:07; Stop 03/09/17 at 15:08; Status DC Morphine Sulfate (*morphine INJ PERIprocedure ONLY) 4 mg STK-MED ONCE .ROUTE Last administered on 03/09/17at 15:35; Start 03/09/17 at 15:35; Stop 03/09/17 at 15:36; Status DC Morphine Sulfate (*morphine INJ PERIprocedure ONLY) 4 mg STK-MED ONCE .ROUTE Last administered on 03/09/17at 15:59; Start 03/09/17 at 15:59; Stop 03/09/17 at 16:00; Status DC Morphine Sulfate (Morphine Inj) 4 mg Q3H PRN IV PUSH 6-10 Last administered on 03/13/17at 09:57; Start 03/09/17 at 16:30 Oxycodone/ Acetaminophen (Percocet 5-325 Mg) 1 tab Q4H PRN PO 3-5 Last administered on 03/22/17at 00:43; Start 03/09/17 at 16:30 Clopidogrel Bisulfate (Plavix) 75 mg DAILY PO ; Start 03/10/17 at 09:00; Stop at 09:00; Status DC Miscellaneous Information ALL NURSING DEPARTME... UNSCH PRN .XX SEE LABEL COMMENTS; Start 03/09/17 at 15:01; Stop 03/10/17 at 15:00; Status DC Sodium Chloride 1,000 ml @ 100 mls/hr Q10H IV Last administered on 03/11/17at 06:13; Start 03/10/17 at 11:00; Stop 03/11/17 at 09:55; Status DC Furosemide (Lasix Inj) 80 mg STK-MED ONCE .ROUTE ; Start 03/11/17 at 09:50; Stop 03/11/17 at 09:51; Status DC Furosemide (Lasix Inj) 80 mg ONCE ONCE IV PUSH Last administered on 03/11/17at 10:30; Start 03/11/17 at 10:30; Stop 03/11/17 at 10:31; Status DC Heparin Sodium/ Dextrose 250 ml @ 18 mls/hr TITRATE PRN IV Coagulation Management; Start 03/11/17 at 10:45; Stop 03/11/17 at 16:09; Status DC Albuterol/ Ipratropium (Duoneb Neb) 1 ampule QID NEB INH Last administered on 03/15/17at 12:42; Start 03/11/17 at 16:00; Stop 03/15/17 at 15:59; Status DC Enoxaparin Sodium (Lovenox Inj) 40 mg Q24H SQ Last administered on 03/13/17at 16 :35; Start 03/11/17 at 16:00; Stop 03/14/17 at 07:53; Status DC Furosemide (Lasix Inj) 80 mg ONCE ONCE IV PUSH Last administered on 03/11/17at 19:31; Start 03/11/17 at 18:45; Stop 03/11/17 at 18:46; Status DC Potassium Chloride (KCl) 40 meq ONCE ONCE PO Last administered on 03/11/17at 21 :00; Start 03/11/17 at 21:00; Stop 03/11/17 at 21:46; Status DC Potassium Chloride 100 ml @ 50 mls/hr BOLUS ONCE IV Last administered on 03/11at 22:00; Start 03/11/17 at 22:00; Stop 03/11/17 at 23:59; Status DC Furosemide (Lasix Inj) 80 mg ONCE ONCE IV PUSH Last administered on 03/12/17at 19:42; Start 03/12/17 at 18:45; Stop 03/12/17 at 18:46; Status DC Lactated Ringer's 2,000 ml @ As Directed STK-MED ONCE IV ; Start 03/09/17 at 12 :00; Stop 03/13/17 at 15:41; Status DC Lidocaine HCl (Xylocaine-Mpf 1% Inj) 5 ml STK-MED ONCE OTHER ; Start 03/09/17 at 12:00; Stop 03/13/17 at 15:41; Status DC Rocuronium [place] (Zemuron Inj) 50 mg STK-MED ONCE IV PUSH ; Start 03/09/17 at 12:00; Stop 03/13/17 at 15:41; Status DC Neostigmine Methylsulfate (Prostigmine Inj) 5 mg STK-MED ONCE IV PUSH ; Start at 12:00; Stop 03/13/17 at 15:41; Status DC Glycopyrrolate (Robinul Inj) 1 mg STK-MED ONCE IV PUSH ; Start 03/09/17 at 12:00 ; Stop 03/13/17 at 15:41; Status DC Dexamethasone Sodium Phosphate (Decadron Inj) 8 mg STK-MED ONCE IV Last administered on 03/09/17at 12:00; Start 03/09/17 at 12:00; Stop 03/13/17 at 15:41 ; Status DC Ondansetron HCl (Zofran Inj) 4 mg STK-MED ONCE IV PUSH ; Start 03/09/17 at 12:00 ; Stop 03/13/17 at 15:41; Status DC Propofol (Diprivan 200 Mg/20 ml Inj) 200 mg STK-MED ONCE IV ; Start 03/09/17 at 12:00; Stop 03/13/17 at 15:41; Status DC Melatonin (Melatonin) 5 mg ONCE ONCE PO Last administered on 03/13/17at 18:00; Start 03/13/17 at 18:00; Stop 03/13/17 at 18:01; Status DC Epinephrine HCl (EPINEPHrine (1:10,000) INJ) 1 mg STK-MED ONCE .ROUTE ; Start at 21:43; Stop 03/13/17 at 21:44; Status DC Atropine Sulfate (Atropine Inj) 1 mg STK-MED ONCE .ROUTE ; Start 03/13/17 at 21: 44; Stop 03/13/17 at 21:45; Status DC Gadodiamide (Omniscan Pf Inj) 20 ml STK-MED ONCE IV PUSH Last administered on at 22:50; Start 03/13/17 at 22:50; Stop 03/13/17 at 22:51; Status DC Iohexol (Omnipaque 350 Inj) 74 ml STK-MED ONCE IVCONTRAST Last administered on 03/14/17at 10:48; Start 03/14/17 at 10:48; Stop 03/14/17 at 10:49; Status DC Senna/Docusate Sodium (Arleth-Colace) 1 tab BID PO Last administered on 03/22/17at 22:04; Start 03/14/17 at 12:30 Magnesium Hydroxide (Milk Of Magnesia Liq) 30 ml Q12H PRN PO Mild constipation Last administered on 03/14/17at 15:23; Start 03/14/17 at 12:30; Stop 03/19/17 at 10:08; Status DC Sennosides (Senokot) 17.2 mg Q12H PRN PO Moderate constipation; Start 03/14/17 at 12:30 Bisacodyl (Dulcolax Supp) 10 mg DAILY PRN RECTAL SEVERE CONSITIPATION; Start at 12:30 Lactulose (Lactulose Liq) 30 ml DAILY PRN PO SEVERE CONSITIPATION Last administered on 03/14/17at 15:23; Start 03/14/17 at 12:30 Sodium Biphosphate/ Sodium Phosphate (Fleets Enema (Adult)) 133 ml ONCE ONCE RECTAL Last administered on 03/16/17at 10:20; Start 03/16/17 at 09:15; Stop at 09:42; Status DC Citalopram Hydrobromide (CeleXA) 20 mg DAILY PO ; Start 03/16/17 at 09:15; Stop 03/16/17 at 09:15; Status DC Duloxetine HCl (Cymbalta Dr) 30 mg DAILY PO Last administered on 03/22/17at 08:59 ; Start 03/16/17 at 10:00; Stop 03/22/17 at 12:14; Status DC Pharmacy Profile Note 0 ml @ 0 mls/hr UNSCH OTHER ; Start 03/17/17 at 15:30; Stop 03/22/17 at 15:31; Status DC Piperacillin Sod/ Tazobactam Sod 100 ml @ 200 mls/hr Q6H IV Last administered on 03/22/17at 12:31; Start 03/17/17 at 18:00; Stop 03/22/17 at 15:31; Status DC Vancomycin HCl 1500 mg/Sodium Chloride 515 ml @ 257.5 mls/ hr Q12H IV ; Start 03/17/17 at 15:30; Status UNV Vancomycin HCl 1500 mg/Sodium Chloride 515 ml @ 257.5 mls/ hr Q12H IV Last administered on 03/21/17at 05:23; Start 03/17/17 at 17:00; Stop 03/21/17 at 09:21; Status DC Miscellaneous Information SPECIFIC LAB TO BE DAMARIS... ONCE ONCE .XX Last administered on 03/19/17 04:17; Start 03/19/17 at 04:45; Stop 03/19/17 at 04:46; Status DC Methylprednisolone Sodium Succinate (SoluMEDROL INJ) 80 mg Q8HR IV PUSH Last administered on 03/23/17at 05:34; Start 03/17/17 at 22:00 Aspirin (Aspirin Chew) 162 mg DAILY CHEW Last administered on 03/22/17at 08:59; Start 03/19/17 at 09:00 Heparin Sodium (Porcine) (Heparin Inj) 5,000 units BID SQ Last administered on 03/22/17 08:59; Start 03/19/17 at 09:00; Stop 03/22/17 at 15:36; Status DC Magnesium Hydroxide (Milk Of Magnradha Liq) 30 ml Q12HR PO Last administered on 03/22/17at 22:03; Start 03/19/17 at 10:07 Propofol (Diprivan 200 Mg/20 ml Inj) 200 mg STK-MED ONCE IV ; Start 03/16/17 at 12:00; Stop 03/20/17 at 06:12; Status DC Miscellaneous Information SPECIFIC LAB TO BE DRAWN:VANCOMYCIN TROUGH DATE TO... ONCE ONCE .XX Last administered on 03/21/17at 04:45; Start 03/21/17 at 04:45; Stop 03/21/17 at 04:46; Status DC Vancomycin HCl 1500 mg/Sodium Chloride 515 ml @ 257.5 mls/ hr Q18H IV Last administered on 03/22/17at 00:43; Start 03/22/17 at 00:00; Stop 03/22/17 at 15:31; Status DC Miscellaneous Information SPECIFIC LAB TO BE DRAWN:VANCOMYCIN TROUGH DATE TO... ONCE ONCE .XX ; Start 03/23/17 at 11:45; Stop 03/23/17 at 11:46; Status Cancel Iohexol (Omnipaque 350 Inj) 10 ml STK-MED ONCE OTHER Last administered on at 11:20; Start 03/21/17 at 12:37; Stop 03/21/17 at 12:38; Status DC Amiodarone HCl (Cordarone) 400 mg Q12HR PO Last administered on 03/22/17at 22:04 ; Start 03/21/17 at 15:00; Stop 03/23/17 at 08:10; Status DC Duloxetine HCl (Cymbalta Dr) 60 mg DAILY PO ; Start 03/23/17 at 09:00 Amiodarone HCl (Cordarone) 200 mg DAILY PO ; Start 03/23/17 at 09:00 (Inder Tucker MD) Medical Decision Making MDM Remarks 76 y/o male with acute right cerebellar infarct, and b/l punctate cerebral infarcts Paroxysmal atrial fibrillation, SEAN without evidence of intracardiac emboli dysarthria (Magalie Hoskins) Plan Plan Remarks with anticoagulation there is increased risk for intracranial hemorrhage, and fortunately without anticoagulation patient is also at risk for recurrent thromboembolic event due to paroxysmal A. fib Dr. Tucker had discussed with neurologist Dr. Tez Chou in regards to anticoagulation therapy, (Magalie Hoskins) Attending Statement I discussed with Dr. Chou the pros and cons of starting anticoagulation. He has atrial fibrillation and needs it, however the patient and his family need to understand the risks. The exam, history, and the medical decision-making described in the above note were completed with the assistance of the mid-level provider. I reviewed and agree with the findings presented. I attest that I had a [id number] encounter with the patient on the same day, and personally performed and documented my assessment and findings in the medical record. (Inder Tucker MD) Magalie Hoskins Mar 22, 2017 12:00 Inder Tucker MD Mar 23, 2017 11:00
--- NOTE | 2017-03-22 12:01 | HHI.FPPN ---
Subjective Remarks No acute events overnight. Pt sitting up in chair, PT in room. at bedside. States that he is doing well this morning. He has no complaints this AM. Last BM was this morning per chart review. Patient denies CP, SOB, abdominal pain, and N/V. (Kalyani Loaiza MD R1) Objective Vitals Vital Signs Date Time Temp Pulse Resp B/P (MAP) Pulse Ox O2 Delivery O2 Flow Rate FiO2 03/22/17 08:00 97.1 63 18 138/76 (96) 95 03/22/17 08:00 57 03/22/17 07:15 4.00 03/22/17 04:00 94 Nasal Cannula 4.50 03/22/17 04:00 63 03/22/17 04:00 97.1 62 18 124/92 (103) 94 03/22/17 00:00 97.8 60 18 133/90 (104) 94 03/22/17 00:00 94 Nasal Cannula 4.50 03/22/17 00:00 58 03/21/17 20:00 97.9 64 18 111/78 (89) 94 03/21/17 20:00 66 03/21/17 20:00 94 Nasal Cannula 4.50 03/21/17 17:37 96 Nasal Cannula 5.00 03/21/17 16:00 97.6 66 18 125/89 (101) 94 03/21/17 16:00 63 03/21/17 12:51 96 Nasal Cannula 5.00 I/O 03/21/17 03/21/17 03/21/17 03/22/17 03/22/17 03/22/17 07:00 15:00 23:00 07:00 15:00 23:00 Intake Total 100 ml 0 ml 340 ml Output Total 25 ml Balance 100 ml -25 ml 340 ml Intake Oral 0 ml 0 ml 240 ml IV Total 100 ml 100 ml Output Urine Total 25 ml # Voids 7 1 3 # Bowel Movements 1 0 1 (Kalyani Loaiza MD R1) Result Diagram: 03/22/1745 03/22/1745 Objective Remarks GENERAL: Elderly gentleman sitting up in bed currently in no acute distress HEENT: Atraumatic, normocephalic with EOMI. No rhinorrhea. MMM. No visible LAD or JVD appreciated. RESPIRATORY: Clear to auscultation bilaterally with no CRW appreciated. Patient currently on nasal cannula. No increased WOB. CARDIOVASCULAR: RRR, no m/r/g. Radial and DP pulses 2+ and symmetric bilaterally. Brisk capillary refill. ABDOMEN: Soft, nondistended, nontender with BS in all 4 quadrants. No masses appreciated. MUSCULOSKELETAL: No edema appreciated. BL calf tenderness improved from prior exam, negative Brenna's bilaterally. No swelling or skin changes. 2+ DP and PT pulses BL. LLE Femoropopliteal bypass incision sites, CDI bandages. Pulses 2+ b/l. Sensation intact b/l. Moving toes and legs b/l. SKIN: Essentially clear with no significant rash or lesions. Adequate skin turgor. NEUROLOGICAL: Grossly afocal, slurred speech, stable from prior exam. Patient does attempt to communicate verbally, however he primarily communicates through hand motions and yes/no questions. Mood overall improved from prior evaluations. Procedures tPA therapy for thrombolysis of left SFA 03/08-03/09 (Kalyani Loaiza MD R1) A/P Assessment and Plan 76-year-old male s/p Fempop bypass surgery on 03/09 subsequently found to have acute right cerebellar infarct on 03/13. Patient is currently stable. Discharge Planning OT/PT at rehab, accepted at [facility] (Kalyani Loaiza MD R1) Attending Attestation Patient seen and examined during rounds this morning with resident physicians The patient case and updates were discussed with the resident physicians during rounds I have read the above note and agree with the assessment/plan as discussed with me I was involved in all medical decision making for this patient Gary Rosado MD (Gary Rosado MD) Problem List: (1) Cerebral infarction due to unspecified occlusion or stenosis of right cerebellar artery ICD Codes: I63.541 - Cerebral infarction due to unspecified occlusion or stenosis of right cerebellar artery Status: Acute Plan: -Neurology consulted, recs appreciated -CT recommended in 1 week, clear for anticoagulation if stable -Cleared for DVT prophylaxis with Heparin 5000u twice a day -Continue Aspirin, Effient discontinued -Neurosurgery consulted, recs appreciated -CT head reviewed, nonoperative mgt -Hypercoagulable workup: Antithrombin elevated at 121 H, rest of workup pending -Cardiology consulted, recs appreciated. - SEAN: atrial septal aneurysm and PFO. PFO closure not recommended. Otherwise , unremarkable. -Continue PT/OT/ST, patient encouraged to participate in therapy to assist with discharge planning Previous Workup: Patient with slurred speech on 03/[address] and MRI showing R cerebellar edema and infarction consistent with CVA. -Head CT: 3.5 x 3.6 cm low attenuation area in the right cerebellar hemisphere area most characteristic of edema which could be secondary to underlying mass or infarction. Second smaller focal peripheral area of decreased attenuation involving the right parietal occipital watershed region concerning for edema as well. Further evaluation with MRI recommended. -Brain MRI: Proximally 5cm infarct of the right cerebellar hemisphere with small punctate infarcts in the right occipital lobe and left parietal lobe. Remote lacunar infarcts of the right basal ganglia and cerebellum. -Head MRA: Patient within normal limits for age -Neck MRA: No significant stenosis in the carotid arteries. Left vertebral artery is dominant. -Neck CTA: Minimal calcific plaquing nonstenotic bilateral carotid bulbs and initial segment of the right internal carotid. -Repeat Brain MRI: no significant change in the appearance of large acute infarction involving the right cerebellum as well as the much smaller acute infarctions involving the right occipital lobe and left high parietal cortex. -Repeat head CT: Stable right cerebellar infarction, fourth ventricle open, no signs of hydrocephalus (2) Paroxysmal atrial fibrillation ICD Codes: I48.0 - Paroxysmal atrial fibrillation Status: Acute Plan: Cardiology consulted, recs appreciated. Monitoring 03/20/17 revealed brief atrial fibrillation, mildly increased HR. No recurrence. Continue Amiodarone 400mg q12hr (3) DVT (deep venous thrombosis) ICD Codes: I82.409 - Acute embolism and thrombosis of unspecified deep veins of unspecified lower extremity Status: Acute Plan: -LE US 03/20/17: Positive venous Doppler bilaterally above the knee on the R and below the knee on the L. -Anticoagulation held due to hemorrhagic stroke -Re-evaluation after repeat MRI in 1 week per neurology -IR consulted, IVC filter placed 03/20/17 -Hematology consulted, appreciate recommendations -Hypercoagulable workup pending (4) Pneumonia ICD Codes: J18.9 - Pneumonia, unspecified organism Plan: CXR 03/17 demonstrated consolidation with infrahilar region on the right, possible aspiration Pneumonia -Pulmonology previously consulted, appreciate recommendations -Continue Methylprednisolone 80mg IV push q8hr, start to wean as tolerated -PFTs ordered Continue Vancomycin, pharmacy consulted for dosing (started 03/17-) Continue Zosyn 4.5 GM IV q6h (started 03/17-) (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 -Thoracic aneurysm aneurysm will be managed medically and with close follow- up for imaging -Goal systolic blood pressure of less than 120 (7) Flash pulmonary edema ICD Codes: J81.0 - Acute pulmonary edema Status: Resolved Plan: -Pulmonology consulted, appreciate recommendations -Continue Methylprednisolone 80mg IV push q8hr, start to wean as tolerated -PFTs ordered -Pt now on 4L NC, wean as tolerated -Continue DuoNebs and incentive spirometry Previous workup: Chest x-ray on admission significant for bibasilar subsegmental atelectasis ACS workup on admission negative D-dimer elevated on admission to 2.51, CTA negative for PE but did show 4.3 cm ascending thoracic aortic aneurysm TSH WNL at 2.56 -Course complicated by flash pulmonary edema on 03/13/17 -Repeat 2-D echo with Doppler ordered by vascular surgery, demonstrated EF of 55 -50, doppler parameters consistent with impaired left ventricular relation ( grade 1 diastolic dysfunction) (8) Superficial femoral artery occlusion ICD Codes: I70.209 - Unspecified atherosclerosis of [place] arteries of extremities, unspecified extremity Status: Resolved Plan: -Patient status post left femoropopliteal bypass femoral endarterectomy popliteal endarterectomy and patch on 03/09 -Patient w/ hx of PAD (9) HTN (hypertension) ICD Codes: I10 - Essential (primary) hypertension Status: Chronic Plan: -Continue lisinopril 10 mg daily, metoprolol tartrate 50 mg PO BID -Vasotec 1.25 mg IV when necessary for systolic blood pressure greater than 160 , diastolic blood pressure greater than 90 -Goal systolic blood pressure of less than 120 due to thoracic aortic aneurysm (10) CAD (coronary artery disease) ICD Codes: I25.10 - Atherosclerotic heart disease of [place] coronary artery without angina pectoris Status: Chronic Plan: -Patient with known CAD, status post coronary stents placed in 2007 -Continue home atorvastatin 80 mg at night, ASA 81 mg daily (11) BPH (benign prostatic hyperplasia) ICD Codes: N40.0 - Benign prostatic hyperplasia without lower urinary tract symptoms Plan: Continue home finasteride 5 mg by mouth daily (12) Constipation ICD Codes: K59.00 - Constipation, unspecified Status: Acute Plan: -Continue constipation protocol (13) FEN Plan: Diet: Heart healthy diet with nectar thickened liquids Oral fluids only Replete electrolytes as needed Zofran as needed for nausea Tylenol as needed for fever Protonix for GI prophylaxis Heparin for DVT prophylaxis 5000u BID (Kalyani Loaiza MD R1) Problem Qualifiers (1) DVT (deep venous thrombosis): (2) HTN (hypertension): Qualified Codes: I10 - Essential (primary) hypertension (3) CAD (coronary artery disease): Qualified Codes: I25.10 - Atherosclerotic heart disease of [place] coronary artery without angina pectoris (4) Constipation: Qualified Codes: K59.00 - Constipation, unspecified Kalyani Loaiza MD R1 Mar 22, 2017 12:00 Gary Rosado MD Mar 22, 2017 16:46
[2017-03-22] MEDS: RESP: ALBUTEROL 2.5 MG/3 ML NEB (PRN) NEB (13:46)
[2017-03-22] MEDS ORDERED: PRED10 PO (14:37)
[2017-03-22] MEDS ORDERED: LEVA750T9 PO (14:37)
[2017-03-22] MEDS ORDERED: AMIO200T PO (14:37)
[2017-03-22] MEDS ORDERED: METO-309 PO (14:37)
[2017-03-22] MEDS ORDERED: PANT40TA3 PO (14:37)
[2017-03-22] MEDS ORDERED: Heparin Inj SQ (14:37)
[2017-03-22] MEDS ORDERED: MONT10TA4 PO (14:37)
[2017-03-22] MEDS ORDERED: ASPI81 CHEW (14:37)
[2017-03-22] MEDS ORDERED: DULO1CAP3 PO (14:37)
--- NOTE | 2017-03-22 14:41 | HHI.DCPOC ---
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 (3) DVT (deep venous thrombosis) (4) Flash pulmonary edema (5) Aorta aneurysm (6) CAD (coronary artery disease) (7) Paroxysmal atrial fibrillation (8) CVA (cerebral vascular accident) (9) Cerebral infarction due to unspecified occlusion or stenosis of right cerebellar artery (10) HTN (hypertension) (11) Respiratory distress (12) Superficial femoral artery occlusion Goals to Promote Your Health * To prevent worsening of your condition and complications * To maintain your health at the optimal level Directions to Meet Your Goals Take your medications as prescribed Follow your dietary instruction Follow activity as directed Keep your appointments as scheduled Take your immunizations and boosters as scheduled If your symptoms worsen call your PCP, if no PCP go to Urgent Care Center or Emergency Room Smoking is Dangerous to Your Health. Avoid second hand smoke Call the 24-hour hour crisis hotline for domestic abuse at Kalyani Loaiza MD R1 Mar 22, 2017 14:41
--- NOTE | 2017-03-22 14:43 | HHI.DS ---
Discharge Summary Admission Date Mar 06, 2017 at 01:00 Admitting Diagnosis SOB on O2 (1) Cerebral infarction due to unspecified occlusion or stenosis of right cerebellar artery Plan: -Neurology consulted, recs appreciated -CT recommended in 1 week, clear for anticoagulation if stable -Cleared for DVT prophylaxis with Heparin 5000u twice a day -Continue Aspirin, Effient discontinued -Neurosurgery consulted, recs appreciated -CT head reviewed, nonoperative mgt -Hypercoagulable workup: Antithrombin elevated at 121 H, rest of workup pending -Cardiology consulted, recs appreciated. - SEAN: atrial septal aneurysm and PFO. PFO closure not recommended. Otherwise , unremarkable. -Continue PT/OT/ST, patient encouraged to participate in therapy to assist with discharge planning Previous Workup: Patient with slurred speech on 03/[address] and MRI showing R cerebellar edema and infarction consistent with CVA. -Head CT: 3.5 x 3.6 cm low attenuation area in the right cerebellar hemisphere area most characteristic of edema which could be secondary to underlying mass or infarction. Second smaller focal peripheral area of decreased attenuation involving the right parietal occipital watershed region concerning for edema as well. Further evaluation with MRI recommended. -Brain MRI: Proximally 5cm infarct of the right cerebellar hemisphere with small punctate infarcts in the right occipital lobe and left parietal lobe. Remote lacunar infarcts of the right basal ganglia and cerebellum. -Head MRA: Patient within normal limits for age -Neck MRA: No significant stenosis in the carotid arteries. Left vertebral artery is dominant. -Neck CTA: Minimal calcific plaquing nonstenotic bilateral carotid bulbs and initial segment of the right internal carotid. -Repeat Brain MRI: no significant change in the appearance of large acute infarction involving the right cerebellum as well as the much smaller acute infarctions involving the right occipital lobe and left high parietal cortex. -Repeat head CT: Stable right cerebellar infarction, fourth ventricle open, no signs of hydrocephalus ICD Codes: I63.541 - Cerebral infarction due to unspecified occlusion or stenosis of right cerebellar artery Status: Acute (2) Paroxysmal atrial fibrillation Plan: Cardiology consulted, recs appreciated. Monitoring 03/20/17 revealed brief atrial fibrillation, mildly increased HR. No recurrence. Continue Amiodarone 400mg q12hr ICD Codes: I48.0 - Paroxysmal atrial fibrillation Status: Acute (3) DVT (deep venous thrombosis) Plan: -LE US 03/20/17: Positive venous Doppler bilaterally above the knee on the R and below the knee on the L. -Anticoagulation held due to hemorrhagic stroke -Re-evaluation after repeat MRI in 1 week per neurology -IR consulted, IVC filter placed 03/20/17 -Hematology consulted, appreciate recommendations -Hypercoagulable workup pending ICD Codes: I82.409 - Acute embolism and thrombosis of unspecified deep veins of unspecified lower extremity Status: Acute (4) Pneumonia Plan: CXR 03/17 demonstrated consolidation with infrahilar region on the right, possible aspiration Pneumonia -Pulmonology previously consulted, appreciate recommendations -Continue Methylprednisolone 80mg IV push q8hr, start to wean as tolerated -PFTs ordered Continue Vancomycin, pharmacy consulted for dosing (started 03/17-) Continue Zosyn 4.5 GM IV q6h (started 03/17-) ICD Codes: J18.9 - Pneumonia, unspecified organism (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 -Thoracic aneurysm aneurysm will be managed medically and with close follow- up for imaging -Goal systolic blood pressure of less than 120 ICD Codes: I71.9 - Aortic aneurysm of unspecified site, without rupture Status: Chronic (7) Flash pulmonary edema Plan: -Pulmonology consulted, appreciate recommendations -Continue Methylprednisolone 80mg IV push q8hr, start to wean as tolerated -PFTs ordered -Pt now on 4L NC, wean as tolerated -Continue DuoNebs and incentive spirometry Previous workup: Chest x-ray on admission significant for bibasilar subsegmental atelectasis ACS workup on admission negative D-dimer elevated on admission to 2.51, CTA negative for PE but did show 4.3 cm ascending thoracic aortic aneurysm TSH WNL at 2.56 -Course complicated by flash pulmonary edema on 03/13/17 -Repeat 2-D echo with Doppler ordered by vascular surgery, demonstrated EF of 55 -50, doppler parameters consistent with impaired left ventricular relation ( grade 1 diastolic dysfunction) ICD Codes: J81.0 - Acute pulmonary edema Status: Resolved (8) Superficial femoral artery occlusion Plan: -Patient status post left femoropopliteal bypass femoral endarterectomy popliteal endarterectomy and patch on 03/09 -Patient w/ hx of PAD ICD Codes: I70.209 - Unspecified atherosclerosis of [place] arteries of extremities, unspecified extremity Status: Resolved (9) HTN (hypertension) Plan: -Continue lisinopril 10 mg daily, metoprolol tartrate 50 mg PO BID -Vasotec 1.25 mg IV when necessary for systolic blood pressure greater than 160 , diastolic blood pressure greater than 90 -Goal systolic blood pressure of less than 120 due to thoracic aortic aneurysm ICD Codes: I10 - Essential (primary) hypertension Status: Chronic (10) CAD (coronary artery disease) Plan: -Patient with known CAD, status post coronary stents placed in 2007 -Continue home atorvastatin 80 mg at night, ASA 81 mg daily ICD Codes: I25.10 - Atherosclerotic heart disease of [place] coronary artery without angina pectoris Status: Chronic (11) BPH (benign prostatic hyperplasia) Plan: Continue home finasteride 5 mg by mouth daily ICD Codes: N40.0 - Benign prostatic hyperplasia without lower urinary tract symptoms (12) Constipation Plan: -Continue constipation protocol ICD Codes: K59.00 - Constipation, unspecified Status: Acute (13) FEN Plan: Diet: Heart healthy diet with nectar thickened liquids Oral fluids only Replete electrolytes as needed Zofran as needed for nausea Tylenol as needed for fever Protonix for GI prophylaxis Heparin for DVT prophylaxis 5000u BID Procedures tPA therapy for thrombolysis of left SFA 03/08-03/09 Brief History Mr. Gallagher is a 76 yo M presenting to the ED with 1 week history of SOB. Patient states that was in his normal state of health prior to 1 week ago when he had two dizzy spells. Patient states that he felt weak/that he may fall and probably sat down in a chair. Symptoms resolved until he tried to arise from the chair again later. Denies blacking out or sensation that the room was spinning. Denied chest pain, LOC or falls. Since then has been progressively more SOB/fatigued, both rest as well as on exertion. At baseline, he able to walk long distances/perform all daily activities with no SOB, but now he has SOB with minimal exertion. Patient has also noted that he has trouble napping/ falling asleep as he often awakes abruptly to catch his breath. Denies orthopnea /worsening SOB with laying flat. Of note he does use a CPAP machine at night. Patient reports postnasal drip but otherwise has no specific complaints.Denies fever, chills, CP, Cough, peripheral edema, N/V, diarrhea, constipation, bloody stools, abdominal pain, dysuria. Patient and his are living in [place] for several months during the winter. Plan on returning to [place] next month. CBC/BMP: 03/22/17 0845 03/22/17 0845 Significant Findings Laboratory Tests Test 03/20/17 05:39 03/20/17 21:00 03/21/17 04:02 03/22/17 06:09 White Blood Count 17.5 TH/MM3 (4.0-11.0) 17.0 TH/MM3 (4.0-11.0) Platelet Count 116 TH/MM3 (150-450) 133 TH/MM3 (150-450) Neutrophils (%) (Auto) 92.0 % (16.0-70.0) Lymphocytes (%) (Auto) 3.7 % (9.0-44.0) Neutrophils # (Auto) 16.1 TH/MM3 (1.8-7.7) Lymphocytes # (Auto) 0.6 TH/MM3 (1.0-4.8) Blood Urea Nitrogen 35 MG/DL (7-18) 31 MG/DL (7-18) Random Glucose 107 MG/DL (74-106) Calcium Level 7.6 MG/DL (8.5-10.1) 7.9 MG/DL (8.5-10.1) Activated Partial Thromboplast Time 23.1 SEC (24.3-30.1) Fibrinogen 220 mg/dL (227-377) Lactate Dehydrogenase 448 U/L (87-241) Vitamin B12 Level 1919 PG/ML (193-986) Heparin-Induced Platelet Ab (Deandra) POSITIVE (NEGATIVE) HIPA Patient Optical Density 1.957 O.D. (0.000-0.300) Total Protein 5.7 GM/DL (6.4-8.2) Albumin 2.4 GM/DL (3.4-5.0) Estimat Glomerular Filtration Rate 87 ML/MIN (>89) Vancomycin Level Trough 20.6 MCG/ML (5.0-10.0) Test 2/7/18 08:45 White Blood Count 14.0 TH/MM3 (4.0-11.0) Platelet Count 126 TH/MM3 (150-450) Neutrophils (%) (Auto) 95.6 % (16.0-70.0) Lymphocytes (%) (Auto) 2.0 % (9.0-44.0) Neutrophils # (Auto) 13.3 TH/MM3 (1.8-7.7) Lymphocytes # (Auto) 0.3 TH/MM3 (1.0-4.8) Blood Urea Nitrogen 34 MG/DL (7-18) Calcium Level 8.0 MG/DL (8.5-10.1) PE at Discharge GENERAL: Elderly gentleman sitting up in bed currently in no acute distress HEENT: Atraumatic, normocephalic with EOMI. No rhinorrhea. MMM. No visible LAD or JVD appreciated. RESPIRATORY: Clear to auscultation bilaterally with no CRW appreciated. Patient currently on nasal cannula. No increased WOB. CARDIOVASCULAR: RRR, no m/r/g. Radial and DP pulses 2+ and symmetric bilaterally. Brisk capillary refill. ABDOMEN: Soft, nondistended, nontender with BS in all 4 quadrants. No masses appreciated. MUSCULOSKELETAL: No edema appreciated. BL calf tenderness improved from prior exam, negative Brenna's bilaterally. No swelling or skin changes. 2+ DP and PT pulses BL. LLE Femoropopliteal bypass incision sites, CDI bandages. Pulses 2+ b/l. Sensation intact b/l. Moving toes and legs b/l. SKIN: Essentially clear with no significant rash or lesions. Adequate skin turgor. NEUROLOGICAL: Grossly afocal, slurred speech, stable from prior exam. Patient does attempt to communicate verbally, however he primarily communicates through hand motions and yes/no questions. Mood overall improved from prior evaluations. Discharge Instructions Speech Therapy-Diet Recommends: Regular, [place] Thickened Liquids Kalyani Loaiza MD R1 Mar 22, 2017 14:43
--- NOTE | 2017-03-22 16:21 | HHI.PR ---
Subjective Remarks ALERT NO SOB Objective Vital Signs Date Time Temp Pulse Resp B/P (MAP) Pulse Ox O2 Delivery O2 Flow Rate FiO2 03/22/17 16:12 98.4 77 18 117/88 (98) 91 03/22/17 13:48 95 Nasal Cannula 5.00 03/22/17 12:00 97.5 72 18 127/84 (98) 92 03/22/17 12:00 70 03/22/17 08:00 97.1 63 18 138/76 (96) 95 03/22/17 08:00 57 03/22/17 07:15 4.00 03/22/17 04:00 94 Nasal Cannula 4.50 03/22/17 04:00 63 03/22/17 04:00 97.1 62 18 124/92 (103) 94 03/22/17 00:00 97.8 60 18 133/90 (104) 94 03/22/17 00:00 94 Nasal Cannula 4.50 03/22/17 00:00 58 03/21/17 20:00 97.9 64 18 111/78 (89) 94 03/21/17 20:00 66 03/21/17 20:00 94 Nasal Cannula 4.50 03/21/17 17:37 96 Nasal Cannula 5.00 I/O 03/21/17 03/21/17 03/21/17 03/22/17 03/22/17 03/22/17 07:00 15:00 23:00 07:00 15:00 23:00 Intake Total 100 ml 0 ml 340 ml 240 ml Output Total 25 ml Balance 100 ml -25 ml 340 ml 240 ml Intake Oral 0 ml 0 ml 240 ml 240 ml IV Total 100 ml 100 ml Output Urine Total 25 ml # Voids 7 1 3 3 # Bowel Movements 1 0 1 Result Diagram: 03/22/17 0845 03/22/17 0845 Objective Remarks GENERAL: SKIN: Warm and dry. HEAD: Atraumatic. Normocephalic. EYES: Pupils equal and round. No scleral icterus. No injection or drainage. ENT: No nasal bleeding or discharge. Mucous membranes pink and moist. NECK: Trachea midline. No JVD. CARDIOVASCULAR: Regular rate and rhythm. RESPIRATORY: No accessory muscle use. Clear to auscultation. Breath sounds equal bilaterally. GASTROINTESTINAL: Abdomen soft, non-tender, nondistended. Hepatic and splenic margins not palpable. MUSCULOSKELETAL: Extremities without clubbing, cyanosis, or edema. No obvious deformities. NEUROLOGICAL: Awake and alert. No obvious cranial nerve deficits. Motor grossly within normal limits. Five out of 5 muscle strength in the arms and legs. Normal speech. PSYCHIATRIC: Appropriate mood and affect; insight and judgment normal. GENERAL: SKIN: Warm and dry. HEAD: Atraumatic. Normocephalic. EYES: Pupils equal and round. No scleral icterus. No injection or drainage. ENT: No nasal bleeding or discharge. Mucous membranes pink and moist. NECK: Trachea midline. No JVD. CARDIOVASCULAR: Regular rate and rhythm. RESPIRATORY: No accessory muscle use. Clear to auscultation. Breath sounds equal bilaterally. GASTROINTESTINAL: Abdomen soft, non-tender, nondistended. Hepatic and splenic margins not palpable. MUSCULOSKELETAL: Extremities without clubbing, cyanosis, or edema. No obvious deformities. NEUROLOGICAL: Awake and alert. No obvious cranial nerve deficits. Motor grossly within normal limits. Five out of 5 muscle strength in the arms and legs. Normal speech. PSYCHIATRIC: Appropriate mood and affect; insight and judgment normal. Assessment and Plan Assessment and Plan ? BRONCHIAL ASTHMA, now stable PVD s/p CVA PLAN O2 NEEDED PRN ALBUTEROL INREASE ACTIVITY Krysta,Krysta Ontiveros MD Mar 22, 2017 16:21
--- NOTE | 2017-03-22 16:25 | PD.ONC.PN ---
Subjective Subjective Remarks Resting comfortably in bed in no distress. Objective Data Date Time Temp Pulse Resp B/P (MAP) Pulse Ox O2 Delivery O2 Flow Rate FiO2 03/22/17 13:48 95 Nasal Cannula 5.00 03/22/17 12:00 97.5 72 18 127/84 (98) 92 03/22/17 12:00 70 03/22/17 08:00 97.1 63 18 138/76 (96) 95 03/22/17 08:00 57 03/22/17 07:15 4.00 03/22/17 04:00 94 Nasal Cannula 4.50 03/22/17 04:00 63 03/22/17 04:00 97.1 62 18 124/92 (103) 94 03/22/17 00:00 97.8 60 18 133/90 (104) 94 03/22/17 00:00 94 Nasal Cannula 4.50 03/22/17 00:00 58 03/21/17 20:00 97.9 64 18 111/78 (89) 94 03/21/17 20:00 66 03/21/17 20:00 94 Nasal Cannula 4.50 03/21/17 17:37 96 Nasal Cannula 5.00 03/21/17 16:00 97.6 66 18 125/89 (101) 94 03/21/17 16:00 63 03/22/17 03/22/17 03/22/17 07:00 15:00 23:00 Intake Total 340 ml Balance 340 ml Result Diagram: 03/22/17 0845 03/22/17 0845 Laboratory Results Laboratory Tests Test 03/22/17 06:09 03/22/17 08:45 White Blood Count 14.0 TH/MM3 Red Blood Count 5.07 MIL/MM3 Hemoglobin 14.5 GM/DL Hematocrit 43.5 % Mean Corpuscular Volume 85.9 FL Mean Corpuscular Hemoglobin 28.7 PG Mean Corpuscular Hemoglobin Concent 33.3 % Red Cell Distribution Width 14.5 % Platelet Count 126 TH/MM3 Mean Platelet Volume 9.1 FL Neutrophils (%) (Auto) 95.6 % Lymphocytes (%) (Auto) 2.0 % Monocytes (%) (Auto) 2.3 % Eosinophils (%) (Auto) 0.0 % Basophils (%) (Auto) 0.1 % Neutrophils # (Auto) 13.3 TH/MM3 Lymphocytes # (Auto) 0.3 TH/MM3 Monocytes # (Auto) 0.3 TH/MM3 Eosinophils # (Auto) 0.0 TH/MM3 Basophils # (Auto) 0.0 TH/MM3 CBC Comment DIFF FINAL Differential Comment Blood Urea Nitrogen 34 MG/DL Creatinine 0.74 MG/DL Random Glucose 103 MG/DL Calcium Level 8.0 MG/DL Sodium Level 138 MEQ/L Potassium Level 4.3 MEQ/L Chloride Level 106 MEQ/L Carbon Dioxide Level 23.6 MEQ/L Anion Gap 8 MEQ/L Estimat Glomerular Filtration Rate 102 ML/MIN Administered Medications Medications (Trade) Dose Ordered Sig/Lizbeth Route PRN Reason Start Time Stop Time Status Last Admin Dose Admin Sodium Chloride (NS Flush) 2 ml BID IV FLUSH 03/06/17 09:00 03/22/17 09:00 Atorvastatin Calcium (Lipitor) 80 mg HS PO 03/05/17 22:15 03/21/17 20:31 Finasteride (Proscar) 5 mg DAILY PO 03/06/17 09:00 03/22/17 08:56 Fluticasone/ Vilanterol (Breo Ellipta 200-25 Inh) 1 puff DAILY INH 03/06/17 09:00 03/22/17 09:00 Gabapentin (Neurontin) 300 mg BID PO 03/05/17 22:15 03/22/17 08:59 Lisinopril (Prinivil) 10 mg DAILY PO 03/06/17 09:00 03/22/17 08:57 Polyethylene Glycol (Miralax) 17 gm DAILY PO 03/06/17 09:00 03/22/17 09:00 Prasugrel (Effient) 10 mg DAILY PO 03/06/17 09:00 Future Hold 03/12/17 08:51 Pantoprazole Sodium (Protonix) 40 mg DAILY PO 03/06/17 09:00 03/22/17 08:56 Multivitamins (Theragran) 1 tab DAILY PO 03/06/17 09:00 03/22/17 08:57 Albuterol Sulfate (Albuterol Neb) 2.5 mg Q4HR WHILE AWAKE NEB PRN NEB SHORTNESS OF BREATH 03/05/17 22:15 03/22/17 13:46 Ondansetron HCl (Zofran Inj) 4 mg Q6HR PRN IV PUSH NAUSEA OR VOMITING 03/05/17 22:15 03/17/17 20:32 Acetaminophen (Tylenol) 325 mg Q4H PRN PO FEVER 03/05/17 22:15 03/11/17 00:55 Metoprolol Tartrate (Lopressor) 50 mg Q12HR PO 03/06/17 10:00 03/22/17 08:59 Montelukast Sodium (Singulair) 10 mg HS PO 03/06/17 21:00 03/21/17 20:31 Morphine Sulfate (Morphine Inj) 4 mg Q3H PRN IV PUSH 6-10 03/09/17 16:30 03/13/17 09:57 Oxycodone/ Acetaminophen (Percocet 5-325 Mg) 1 tab Q4H PRN PO 3-5 03/09/17 16:30 03/22/17 00:43 Senna/Docusate Sodium (Arleth-Colace) 1 tab BID PO 03/14/17 12:30 03/22/17 08:59 Lactulose (Lactulose Liq) 30 ml DAILY PRN PO SEVERE CONSITIPATION 03/14/17 12:30 03/14/17 15:23 Piperacillin Sod/ Tazobactam Sod 100 ml @ 200 mls/hr Q6H IV 03/17/17 18:00 03/22/17 12:31 Methylprednisolone Sodium Succinate (SoluMEDROL INJ) 80 mg Q8HR IV PUSH 03/17/17 22:00 03/22/17 13:22 Aspirin (Aspirin Chew) 162 mg DAILY CHEW 03/19/17 09:00 03/22/17 08:59 Heparin Sodium (Porcine) (Heparin Inj) 5,000 units BID SQ 03/19/17 09:00 03/22/17 08:59 Magnesium Hydroxide (Milk Of Magnesia Liq) 30 ml Q12HR PO 03/19/17 10:07 03/22/17 08:59 Vancomycin HCl 1500 mg/Sodium Chloride 515 ml @ 257.5 mls/ hr Q18H IV 03/22/17 00:00 03/22/17 00:43 Amiodarone HCl (Cordarone) 400 mg Q12HR PO 03/21/17 15:00 03/22/17 08:59 Objective Remarks GENERAL: Well-nourished, well-developed patient. SKIN: Warm and dry. HEAD: Normocephalic. EYES: No scleral icterus. No injection or drainage. LYMPHATIC: No adenopathy. CARDIOVASCULAR: Regular rate and rhythm without murmurs. RESPIRATORY: Breath sounds equal bilaterally. No accessory muscle use. GASTROINTESTINAL: Abdomen soft, non-tender, nondistended. EXTREMITIES: No edema MUSCULOSKELETAL: Adequate muscle tone. NEUROLOGICAL: slurred speech PSYCHIATRIC: Appropriate mood and affect; insight and judgment normal. Assessment/Plan Assessment 1. 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 Bilateral lower extremity VTE. CVA with hemorrhagic component. Hypercoaguable work up performed and unrevealing. Protein C, AT III high, however this is not clinically significant. Antiphospholipid antibody work up with weak positive phospholipid IgM antibody. Factor V Leiden mutation negative. Prothrombin gene mutation ordered. clot/thrombocytopenia with withdraw of heparin. 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 SHAUN ordered. Please avoid heparin products. Ideally patient would be on full intensity anticoagulation therapy, however this is not an option given intracranial hemorrhage. With anticoagualtion would be the risk of further progression of hemorrhage. Neurolgoy and NSGY teams following. 2. Thrombocytopenia: No evidence of DIC, APLS, TMA. ? HIT. SHAUN pending 3. Leukocytosis: new since hospital admission. On steroids likely contributing. Continue to trend. Cheryle Coleman MD Mar 22, 2017 16:25
[2017-03-22] MEDS: ATORVASTATIN 80 MG TAB PO SCH (22:04)
[2017-03-22] MEDS: MONTELUKAST SODIUM 10 MG TAB PO SCH (22:05)
[2017-03-23] VITALS (14 sets, daily range): BP systolic 109–133; BP diastolic 76–88; PULSE 67–105; RESP 17–24; TEMP 95.4–98.3; O2SAT 90–97
[2017-03-23] MEDS: methylPREDNISolone SOD SUCC 40 MG/1 ML VIAL IV PUSH SCH ×3 (05:34→21:28)
--- NOTE | 2017-03-23 07:31 | HHI.PR ---
Subjective Remarks AFIB CONFIRMED BY DR CARMEN one or two strips antiphospholidid up slightly dvt Objective Vital Signs Date Time Temp Pulse Resp B/P (MAP) Pulse Ox O2 Delivery O2 Flow Rate FiO2 03/23/17 04:15 Nasal Cannula 4.00 Humidified 03/23/17 04:15 97.0 67 24 122/88 (99) 97 03/23/17 03:45 68 03/23/17 00:30 Nasal Cannula 4.00 Humidified 03/23/17 00:30 98.3 76 23 130/80 (97) 96 03/22/17 23:44 76 03/22/17 20:00 97.6 03/22/17 20:00 81 21 132/67 (88) 91 03/22/17 20:00 Nasal Cannula 4.00 Humidified 03/22/17 19:42 92 03/22/17 17:50 Nasal Cannula 5.00 03/22/17 16:12 98.4 77 18 117/88 (98) 91 03/22/17 16:00 75 03/22/17 13:48 95 Nasal Cannula 5.00 03/22/17 12:00 97.5 72 18 127/84 (98) 92 03/22/17 12:00 70 03/22/17 08:00 97.1 63 18 138/76 (96) 95 03/22/17 08:00 57 I/O 03/22/17 03/22/17 03/22/17 03/23/17 03/23/17 03/23/17 07:00 15:00 23:00 07:00 15:00 23:00 Intake Total 340 ml 340 ml 100 ml 480 ml Balance 340 ml 340 ml 100 ml 480 ml Intake Oral 240 ml 240 ml 480 ml IV Total 100 ml 100 ml 100 ml # Voids 3 3 2 # Bowel Movements 1 1 0 Result Diagram: 03/22/17 0845 03/22/17 0845 Objective Remarks left eye still slight turn in no diplopia must be old no nystag vff face sym 5/5 t/o awake alert moves all well voice soft pupil = Assessment and Plan Assessment and Plan imp bilat cva old left cbllr new r cbllr with some blood in it new r parietal and left parietal left vert dom and ? if origin stenosis check cta check holter normally i would coumadinze but there is a hemorrhagic sign component to the r cbllr infarct so will wait few weeks does he need to be on asa and effient or could he dc later with blood in cbllm preferred oob need to watch his neuro exam with the r cbllr infarct 03/15/17 overall stable watch lle for some weakness vs post op pain mri last pm stable and could go to floor tomorrow if stable asa 81 ok no other blodd thinners but ini future will do anticoagulation as o/p fu holter cta left vert origin nl 03/21/17 stable neuro bilat cva ? afib cards to review tele strip dvt cta neck neg vert origin dz for filter antiph lipdi ab slight inc heme on case he has a mod amt blood in that r cbllr cva asa on sq hep now i had scd order in on 03/14/17 03/23/17 i jenny stinson there is some hemorrhagic conmponent to the r cbllr infarct and some inc risk of more bleeding on coumadin also risk of cva with afib alsready had several we could consider starting coumadin will dw today a risk either way i jenny pt this am / Lupillo Chou MD Mar 23, 2017 07:31
--- NOTE | 2017-03-23 08:10 | PD.CARD.PN ---
Subjective Subjective Remarks Denies CP, dyspnea, dizziness, palpitations, nausea. Slept poorly. Objective Medications Item Value Date Time Amiodarone HCl 400 mg 03/21/17 1500 (Cordarone) Q12HR/PO 03/22/172203 Aspirin 162 mg 03/19/17 0900 (Aspirin Chew) DAILY/CHEW 03/22/17 0859 Metoprolol 50 mg 03/06/17 1000 Tartrate Q12HR/PO 03/22/172204 (Lopressor) Lisinopril 10 mg 03/06/17 0900 (Prinivil) DAILY/PO 03/22/17 0857 Atorvastatin 80 mg 03/05/172214 Calcium HS/PO 03/22/174 (Lipitor) Current Medications Medications (Trade) Dose Ordered Sig/Lizbeth Route Start Time Stop Time Status Last Admin (NS Flush) 2 ml UNSCH PRN IV FLUSH 03/05/17 22:00 03/23/17 05:34 (NS Flush) 2 ml BID IV FLUSH 03/06/17 09:00 03/22/17 22:04 (Lipitor) 80 mg HS PO 03/05/17 22:15 03/22/17 22:04 (Proscar) 5 mg DAILY PO 03/06/17 09:00 03/22/17 08:56 (Breo Ellipta 200-25 Inh) 1 puff DAILY INH 03/06/17 09:00 03/22/17 09:00 (Neurontin) 300 mg BID PO 03/05/17 22:15 03/22/17 22:04 (Prinivil) 10 mg DAILY PO 03/06/17 09:00 03/22/17 08:57 (Miralax) 17 gm DAILY PO 03/06/17 09:00 03/22/17 09:00 (Effient) 10 mg DAILY PO 03/06/17 09:00 Future Hold 03/12/17 08:51 (Protonix) 40 mg DAILY PO 03/06/17 09:00 03/22/17 08:56 (Theragran) 1 tab DAILY PO 03/06/17 09:00 03/22/17 08:57 (Albuterol Neb) 2.5 mg Q4HR WHILE AWAKE NEB PRN NEB 03/05/17 22:15 03/22/17 13:46 (Zofran Inj) 4 mg Q6HR PRN IV PUSH 03/05/17 22:15 03/17/17 20:32 (Tylenol) 325 mg Q4H PRN PO 03/05/17 22:15 03/11/17 00:55 (Lopressor) 50 mg Q12HR PO 03/06/17 10:00 03/22/17 22:05 (Singulair) 10 mg HS PO 03/06/17 21:00 03/22/17 22:05 (Morphine Inj) 4 mg Q3H PRN IV PUSH 03/09/17 16:30 03/13/17 09:57 (Percocet 5-325 Mg) 1 tab Q4H PRN PO 03/09/17 16:30 03/22/17 00:43 (Arleth-Colace) 1 tab BID PO 03/14/17 12:30 03/22/17 22:04 (Senokot) 17.2 mg Q12H PRN PO 03/14/17 12:30 (Dulcolax Supp) 10 mg DAILY PRN RECTAL 03/14/17 12:30 (Lactulose Liq) 30 ml DAILY PRN PO 03/14/17 12:30 03/14/17 15:23 (SoluMEDROL INJ) 80 mg Q8HR IV PUSH 03/17/17 22:00 03/23/17 05:34 (Aspirin Chew) 162 mg DAILY CHEW 03/19/17 09:00 03/22/17 08:59 (Milk Of Magnesia Liq) 30 ml Q12HR PO 03/19/17 10:07 03/22/17 22:03 (Cordarone) 400 mg Q12HR PO 03/21/17 15:00 03/22/17 22:04 (Cymbalta Dr) 60 mg DAILY PO 03/23/17 09:00 Vital Signs / I&O Vital Signs Date Time Temp Pulse Resp B/P (MAP) Pulse Ox O2 Delivery O2 Flow Rate FiO2 03/23/17 07:58 Nasal Cannula 4.00 03/23/17 04:15 Nasal Cannula 4.00 Humidified 03/23/17 04:15 97.0 67 24 122/88 (99) 97 03/23/17 03:45 68 03/23/17 00:30 Nasal Cannula 4.00 Humidified 03/23/17 00:30 98.3 76 23 130/80 (97) 96 03/22/17 23:44 76 03/22/17 20:00 97.6 03/22/17 20:00 81 21 132/67 (88) 91 03/22/17 20:00 Nasal Cannula 4.00 Humidified 03/22/17 19:42 92 03/22/17 17:50 Nasal Cannula 5.00 03/22/17 16:12 98.4 77 18 117/88 (98) 91 03/22/17 16:00 75 03/22/17 13:48 95 Nasal Cannula 5.00 03/22/17 12:00 97.5 72 18 127/84 (98) 92 03/22/17 12:00 70 I/O 03/22/17 03/22/17 03/22/17 03/23/17 03/23/17 03/23/17 07:00 15:00 23:00 07:00 15:00 23:00 Intake Total 340 ml 340 ml 100 ml 480 ml Balance 340 ml 340 ml 100 ml 480 ml Intake Oral 240 ml 240 ml 480 ml IV Total 100 ml 100 ml 100 ml # Voids 3 3 2 # Bowel Movements 1 1 0 Physical Exam GENERAL: Well developed, well nourished. No acute distress. HEENT: Jugular venous pressure is normal. CHEST: Lungs clear to auscultation anteriorly. CARDIAC: Regular rate and rhythm without S3, S4, or murmur. ABDOMEN: Soft, nontender, no hepatosplenomegaly. Bowel sounds present. EXTREMITIES: No clubbing, cyanosis, edema. Laboratory Laboratory Tests Test 03/22/17 08:45 White Blood Count 14.0 TH/MM3 Red Blood Count 5.07 MIL/MM3 Hemoglobin 14.5 GM/DL Hematocrit 43.5 % Mean Corpuscular Volume 85.9 FL Mean Corpuscular Hemoglobin 28.7 PG Mean Corpuscular Hemoglobin Concent 33.3 % Red Cell Distribution Width 14.5 % Platelet Count 126 TH/MM3 Mean Platelet Volume 9.1 FL Neutrophils (%) (Auto) 95.6 % Lymphocytes (%) (Auto) 2.0 % Monocytes (%) (Auto) 2.3 % Eosinophils (%) (Auto) 0.0 % Basophils (%) (Auto) 0.1 % Neutrophils # (Auto) 13.3 TH/MM3 Lymphocytes # (Auto) 0.3 TH/MM3 Monocytes # (Auto) 0.3 TH/MM3 Eosinophils # (Auto) 0.0 TH/MM3 Basophils # (Auto) 0.0 TH/MM3 CBC Comment DIFF FINAL Differential Comment Blood Urea Nitrogen 34 MG/DL Creatinine 0.74 MG/DL Random Glucose 103 MG/DL Calcium Level 8.0 MG/DL Sodium Level 138 MEQ/L Potassium Level 4.3 MEQ/L Chloride Level 106 MEQ/L Carbon Dioxide Level 23.6 MEQ/L Anion Gap 8 MEQ/L Estimat Glomerular Filtration Rate 102 ML/MIN Assessment and Plan Problem List: (1) Paroxysmal atrial fibrillation ICD Codes: I48.0 - Paroxysmal atrial fibrillation Status: Acute Plan: Monitoring 03/20/17 revealed brief atrial fibrillation, mildly increased HR. No recurrence. Recommend continue oral Amiodarone, reduce dose to 200 mg qd. In light of his high thromboembolic risk, recommend anticoagulation therapy when possible. Will f/u PRN. (2) CVA (cerebral vascular accident) ICD Codes: I63.9 - Cerebral infarction, unspecified Status: Acute Plan: SEAN unremarkable except atrial septal aneurysm and patent foramen ovale. (+) DVT's on venous Doppler of LE's. Patient now s/p IVC filter placement. Would not recommend PFO closure. Also now with evidence for paroxysmal atrial fibrillation as above. (3) CAD (coronary artery disease) ICD Codes: I25.10 - Atherosclerotic heart disease of [place] coronary artery without angina pectoris Status: Chronic Plan: Stable. No recent angina. Continue baby aspirin. OK to keep off Prasugrel. (4) HTN (hypertension) ICD Codes: I10 - Essential (primary) hypertension Status: Chronic Plan: Stable. Continued good BP control. Code Status full code Discussed Condition With patient Problem Qualifiers (1) CVA (cerebral vascular accident): (2) CAD (coronary artery disease): Qualified Codes: I25.10 - Atherosclerotic heart disease of [place] coronary artery without angina pectoris (3) HTN (hypertension): Qualified Codes: I10 - Essential (primary) hypertension Jair De Jesus MD Mar 23, 2017 08:09
[2017-03-23 08:51] LABS: HEMATOCRIT 46.4 % (39.0-51.0); HEMOGLOBIN 15.1 GM/DL (13.0-17.0); MEAN CELL VOLUME 87.3 FL (80.0-100.0); MEAN CORPUSCULAR HEMOGLOBIN 28.4 PG (27.0-34.0); MEAN CORPUSCULAR HGB CONC 32.6 % (32.0-36.0); PLATELET COUNT 117 TH/MM3 (150-450); RED BLOOD COUNT 5.31 MIL/MM3 (4.50-5.90); RED CELL DISTRIBUTION WIDTH 14.9 % (11.6-17.2); WHITE BLOOD COUNT 20.4 TH/MM3 (4.0-11.0)
[2017-03-23] MEDS: FLUTICASONE 200 MCG/VILANTEROL 25 MCG INHALER INH SCH (09:00)
[2017-03-23] MEDS: POLYETHYLENE GLYCOL 17 GM PKG PO SCH (09:00)
[2017-03-23] MEDS: SODIUM CHLORIDE 0.9% FLUSH 10 ML FLUSH IV FLUSH SCH ×2 (09:00→21:26)
[2017-03-23] MEDS: ASPIRIN 81 MG CHEW TAB CHEW SCH (11:21)
[2017-03-23] MEDS: METOPROLOL TARTRATE 50 MG TAB PO SCH ×2 (11:21→21:27)
[2017-03-23] MEDS: PANTOPRAZOLE SOD 40 MG DELAYED RELEASE TAB PO SCH (11:21)
[2017-03-23] MEDS: GABAPENTIN 300 MG CAP PO SCH ×2 (11:21→21:27)
[2017-03-23] MEDS: DOCUSATE SODIUM 50 MG/SENNA 8.6 MG TAB PO SCH ×2 (11:21→21:27)
[2017-03-23] MEDS: MAGNESIUM HYDROXIDE SUSP 30 ML CUP PO SCH ×2 (11:23→21:27)
[2017-03-23] MEDS: LISINOPRIL 10 MG TAB PO SCH ×2 (11:23→11:29)
[2017-03-23] MEDS: MULTIVITAMIN TAB PO SCH (11:23)
[2017-03-23] MEDS: FINASTERIDE 5 MG TAB PO SCH (11:23)
[2017-03-23] MEDS: DULoxetine HCl DR 60 MG CAP PO SCH (11:24)
[2017-03-23] MEDS: AMIODARONE 200 MG TAB PO SCH (11:28)
--- NOTE | 2017-03-23 11:34 | HHI.FPPN ---
Subjective Remarks Patient seen this morning shortly after being notified of respiratory distress. On routine vital sign check patient was tachypneic with oxygen saturation in the mid to upper 80s on 4L NC. Patient does not converse verbally well secondary to his stroke, but is able to use nonverbal communication that he has no complaints. He denies any fevers, shortness of breath, chest pain, ABD pain, NVD, or calf tenderness. Nursing staff reports no issues prior to this episode or overnight. (Lv Ordaz MD R2) Objective Vitals Vital Signs Date Time Temp Pulse Resp B/P (MAP) Pulse Ox O2 Delivery O2 Flow Rate FiO2 03/23/17 08:00 95.4 76 20 127/78 (94) 91 03/23/17 07:58 Nasal Cannula 4.00 03/23/17 04:15 Nasal Cannula 4.00 Humidified 03/23/17 04:15 97.0 67 24 122/88 (99) 97 03/23/17 03:45 68 03/23/17 00:30 Nasal Cannula 4.00 Humidified 03/23/17 00:30 98.3 76 23 130/80 (97) 96 03/22/17 23:44 76 03/22/17 20:00 97.6 03/22/17 20:00 81 21 132/67 (88) 91 03/22/17 20:00 Nasal Cannula 4.00 Humidified 03/22/17 19:42 92 03/22/17 17:50 Nasal Cannula 5.00 03/22/17 16:12 98.4 77 18 117/88 (98) 91 03/22/17 16:00 75 03/22/17 13:48 95 Nasal Cannula 5.00 03/22/17 12:00 97.5 72 18 127/84 (98) 92 03/22/17 12:00 70 I/O 03/22/17 03/22/17 03/22/17 03/23/17 03/23/17 03/23/17 07:00 15:00 23:00 07:00 15:00 23:00 Intake Total 340 ml 340 ml 100 ml 480 ml Balance 340 ml 340 ml 100 ml 480 ml Intake Oral 240 ml 240 ml 480 ml IV Total 100 ml 100 ml 100 ml # Voids 3 3 2 # Bowel Movements 1 1 0 (Lv Ordaz MD R2) Result Diagram: 03/23/17 0646 03/22/17 0845 Objective Remarks GENERAL: Elderly gentleman lying in bed currently in respiratory distress HEENT: Atraumatic, normocephalic with EOMI. No rhinorrhea. MMM. No visible LAD or JVD appreciated. RESPIRATORY: Clear to auscultation bilaterally with no CRW appreciated. Patient currently on nasal cannula. No increased WOB. CARDIOVASCULAR: RRR, no m/r/g. Radial and DP pulses 2+ and symmetric bilaterally. Brisk capillary refill. ABDOMEN: Soft, nondistended, nontender with BS in all 4 quadrants. No masses appreciated. MUSCULOSKELETAL: No edema appreciated. BL calf tenderness improved from prior exam, negative Brenna's bilaterally. No swelling or skin changes. 2+ DP and PT pulses BL. LLE Femoropopliteal bypass incision sites, CDI. Pulses 2+ b/l. Sensation intact b/l. Moving toes and legs b/l. SKIN: Essentially clear with no significant rash or lesions. Adequate skin turgor. NEUROLOGICAL: Continued slurred speech, stable from prior exam. Otherwise CN 2- 12 intact. Patient does attempt to communicate verbally, however he primarily communicates through hand motions and yes/no questions. Mood overall improved from prior evaluations. Procedures tPA therapy for thrombolysis of left SFA 03/08-03/09 (Lv Ordaz MD R2) A/P Assessment and Plan 76-year-old male s/p Fempop bypass surgery on 03/09 subsequently found to have acute right cerebellar infarct on 03/13. Patient is currently stable. Discharge Planning Pending clinical course (Lv Ordaz MD R2) Attending Attestation Pt. examined and case discussed with resident physicians. I personally examined patient this morning during rounds separate from the residents. I have read the above note and agree with the assessment and plan as discussed with me. I was involved in all medical decision making for this patient. PT. 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 Patient elects to proceed with anticoagulation to treat PE and has made his wishes known that if a catastrophic side effect were to occur, he does not want to be intubated or have chest compressions/cpr. Gary Rosado MD (Gary Rosdao MD) Problem List: (1) Respiratory distress ICD Codes: R06.03 - Acute respiratory distress Status: Acute Plan: Patient presenting in respiratory distress 03/23/17 with tachypnea and desaturation to the high 80s. Currently on Ventimask 40L with saturation in the low 90s and RR of 24. -Stat EKG with sinus rhythm of 89 bpm. No interval or ST abnormalities, per medical team read. -Stat ABD and chest xray to confirm IVC filter placement -Stat CTA to rule out possible PE due to hypercoagulable state -Stat troponin, VBG, and lactic acid ordered -Patient to be transferred to the [facility] for further monitoring -Will discuses with consultants and specialists (2) Cerebral infarction due to unspecified occlusion or stenosis of right cerebellar artery ICD Codes: I63.541 - Cerebral infarction due to unspecified occlusion or stenosis of right cerebellar artery Status: Acute Plan: -Neurology consulted, recs appreciated -CT recommended 04/01/17, clear for anticoagulation if stable -Cleared for DVT prophylaxis with Heparin 5000u twice a day -Continue Aspirin, Effient discontinued -Consider starting Coumadin, plan to discuss with -Neurosurgery consulted, recs appreciated -CT head reviewed, nonoperative mgt -Cardiology consulted, recs appreciated. -SEAN: atrial septal aneurysm and PFO. PFO closure not recommended. Otherwise , unremarkable. -Paroxysmal atrial fibrillation noted 03/20. Continued metoprolol, added Amiodarone. Anticoagulation therapy when possible. -Continue PT/OT/ST, patient encouraged to participate in therapy to assist with discharge planning Previous Workup: Patient with slurred speech on 03/[address] and MRI showing R cerebellar edema and infarction consistent with CVA. -Head CT: 3.5 x 3.6 cm low attenuation area in the right cerebellar hemisphere area most characteristic of edema which could be secondary to underlying mass or infarction. Second smaller focal peripheral area of decreased attenuation involving the right parietal occipital watershed region concerning for edema as well. Further evaluation with MRI recommended. -Brain MRI: Proximally 5cm infarct of the right cerebellar hemisphere with small punctate infarcts in the right occipital lobe and left parietal lobe. Remote lacunar infarcts of the right basal ganglia and cerebellum. -Head MRA: Patient within normal limits for age -Neck MRA: No significant stenosis in the carotid arteries. Left vertebral artery is dominant. -Neck CTA: Minimal calcific plaquing nonstenotic bilateral carotid bulbs and initial segment of the right internal carotid. -Repeat Brain MRI: no significant change in the appearance of large acute infarction involving the right cerebellum as well as the much smaller acute infarctions involving the right occipital lobe and left high parietal cortex. -Repeat head CT: Stable right cerebellar infarction, fourth ventricle open, no signs of hydrocephalus (3) Paroxysmal atrial fibrillation ICD Codes: I48.0 - Paroxysmal atrial fibrillation Status: Acute Plan: Cardiology consulted, recs appreciated. -Recommendations as above (4) DVT (deep venous thrombosis) ICD Codes: I82.409 - Acute embolism and thrombosis of unspecified deep veins of unspecified lower extremity Status: Acute Plan: -LE US 03/20/17: Positive venous Doppler bilaterally above the knee on the R and below the knee on the L. -Anticoagulation held due to hemorrhagic stroke -Re-evaluation after repeat MRI in 1 week per neurology -IR consulted, IVC filter placed 03/20/17 -Hematology consulted, appreciate recommendations -Hypercoagulable workup pending for possible HIT (5) Pneumonia ICD Codes: J18.9 - Pneumonia, unspecified organism Plan: CXR 03/17 demonstrated consolidation with infrahilar region on the right, possible aspiration Pneumonia -Pulmonology previously consulted, appreciate recommendations -Continue Methylprednisolone 80mg IV push q8hr, start to wean as tolerated -PFTs ordered Continue Vancomycin, pharmacy consulted for dosing (started 03/17-) Continue Zosyn 4.5 GM IV q6h (started 03/17-) (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 -Thoracic aneurysm aneurysm will be managed medically and with close follow- up for imaging -Goal systolic blood pressure of less than 120 (8) Flash pulmonary edema ICD Codes: J81.0 - Acute pulmonary edema Status: Resolved Plan: -Pulmonology consulted, appreciate recommendations -Continue Methylprednisolone 80mg IV push q8hr, start to wean as tolerated -PFTs ordered -Pt now on 4L NC, wean as tolerated -Continue DuoNebs and incentive spirometry Previous workup: Chest x-ray on admission significant for bibasilar subsegmental atelectasis ACS workup on admission negative D-dimer elevated on admission to 2.51, CTA negative for PE but did show 4.3 cm ascending thoracic aortic aneurysm TSH WNL at 2.56 -Course complicated by flash pulmonary edema on 03/13/17 -Repeat 2-D echo with Doppler ordered by vascular surgery, demonstrated EF of 55 -50, doppler parameters consistent with impaired left ventricular relation ( grade 1 diastolic dysfunction) (9) Superficial femoral artery occlusion ICD Codes: I70.209 - Unspecified atherosclerosis of rampart arteries of extremities, unspecified extremity Status: Resolved Plan: -Patient status post left femoropopliteal bypass femoral endarterectomy popliteal endarterectomy and patch on 03/09 -Patient w/ hx of PAD (10) HTN (hypertension) ICD Codes: I10 - Essential (primary) hypertension Status: Chronic Plan: -Continue lisinopril 10 mg daily, metoprolol tartrate 50 mg PO BID -Vasotec 1.25 mg IV when necessary for systolic blood pressure greater than 160 , diastolic blood pressure greater than 90 -Goal systolic blood pressure of less than 120 due to thoracic aortic aneurysm (11) CAD (coronary artery disease) ICD Codes: I25.10 - Atherosclerotic heart disease of rampart coronary artery without angina pectoris Status: Chronic Plan: -Patient with known CAD, status post coronary stents placed in 2007 -Continue home atorvastatin 80 mg at night, ASA 81 mg daily (12) BPH (benign prostatic hyperplasia) ICD Codes: N40.0 - Benign prostatic hyperplasia without lower urinary tract symptoms Plan: Continue home finasteride 5 mg by mouth daily (13) Constipation ICD Codes: K59.00 - Constipation, unspecified Status: Acute Plan: -Continue constipation protocol (14) FEN Plan: Diet: Heart healthy diet with nectar thickened liquids Oral fluids only Replete electrolytes as needed Zofran as needed for nausea Tylenol as needed for fever Protonix for GI prophylaxis Heparin for DVT prophylaxis 5000u BID (Lv Ordaz MD R2) Problem Qualifiers (1) DVT (deep venous thrombosis): (2) HTN (hypertension): Qualified Codes: I10 - Essential (primary) hypertension (3) CAD (coronary artery disease): Qualified Codes: I25.10 - Atherosclerotic heart disease of rampart coronary artery without angina pectoris (4) Constipation: Qualified Codes: K59.00 - Constipation, unspecified Lv Ordaz MD R2 Mar 23, 2017 11:33 Gary Rosado MD Mar 23, 2017 21:02
--- NOTE | 2017-03-23 11:40 | RADRPT ---
EXAM DATE/TIME: 03/23/2017 10:52 [facility] COMPARISON: CHEST SINGLE AP, March 17, 2017, 10:24. INDICATIONS : Short of breath MEDICAL HISTORY : CAD, HTN, BPH, GERD, PAD, Erythrocytosis, Transient global amnesia SURGICAL HISTORY : Coronary artery stent. Cholecystectomy. Herniea disc repair ENCOUNTER: Subsequent ACUITY: 2 weeks PAIN SCORE: 0/10 LOCATION: chest FINDINGS: A single view of the chest demonstrates the lungs to be symmetrically aerated with developing left ba silar atelectasis laterally. Right lung is clear. Heart size is borderline well compensated. Dextrosc oliosis of the dorsal spine with associated degenerative changes. Osseous structures are otherwise in tact. CONCLUSION: 1. Developing lateral atelectatic changes above the left hemidiaphragm. Lungs are otherwise clear. 2. Stable degenerative changes of the dorsal spine. 3. Heart size is borderline but well compensated. Domingo Laura MD on March 23, 2017 at 11:33 Board Certified Radiologist. This report was verified electronically.
--- NOTE | 2017-03-23 11:44 | RADRPT ---
EXAM DATE/TIME: 03/23/2017 10:57 [facility] COMPARISON: VENOGRAM IVC W FILTER PLACEMENT, March 21, 2017, 11:48. INDICATIONS : Evaluate IVC filter MEDICAL HISTORY : Hypertension. Cerebrovascular disease. Myocardial infarction SURGICAL HISTORY : Coronary artery stent. Cholecystectomy. ENCOUNTER: Initial ACUITY: 2 weeks PAIN SCORE: 0/10 LOCATION: Abdomen FINDINGS: Examination of the abdomen demonstrates a normal bowel gas pattern. Vena-Tech type IVC filter is stab le in position projecting over the L1 and L2 vertebral bodies. Degenerative changes throughout the th oracolumbar spine with laminectomies in the lower lumbar region and Bipedicular fixation of the lower lumbar spine and lumbosacral junction. CONCLUSION: 1. Radiographically benign abdomen. 2. Stable position of Vena-Tech type IVC filter projecting over the L1 and L2 vertebral bodies. 3. Degenerative changes of the thoracolumbar spine as described above. Domingo Laura MD on March 23, 2017 at 11:38 Board Certified Radiologist. This report was verified electronically.
[2017-03-23] MEDS ORDERED: PHARMACY ORDERED LAB ONE (11:45)
--- NOTE | 2017-03-23 12:49 | PD.ONC.PN ---
Subjective Subjective Remarks Afebrile overnight. Patient resting in bed, tachypneic. patient is pending CTA today after becoming tachypneic this AM. He is s/p IVC filter placement on 03/21. he denies chest pain, but states he does have epigastric abdominal pain. Objective Data Date Time Temp Pulse Resp B/P (MAP) Pulse Ox O2 Delivery O2 Flow Rate FiO2 03/23/17 12:38 88 Nasal Cannula 4.00 Humidified 03/23/17 11:34 97.2 91 20 109/77 (88) 93 03/23/17 08:00 95.4 76 20 127/78 (94) 91 03/23/17 07:58 Nasal Cannula 4.00 03/23/17 04:15 Nasal Cannula 4.00 Humidified 03/23/17 04:15 97.0 67 24 122/88 (99) 97 03/23/17 03:45 68 03/23/17 00:30 Nasal Cannula 4.00 Humidified 03/23/17 00:30 98.3 76 23 130/80 (97) 96 03/22/17 23:44 76 03/22/17 20:00 97.6 03/22/17 20:00 81 21 132/67 (88) 91 03/22/17 20:00 Nasal Cannula 4.00 Humidified 03/22/17 19:42 92 03/22/17 17:50 Nasal Cannula 5.00 03/22/17 16:12 98.4 77 18 117/88 (98) 91 03/22/17 16:00 75 03/22/17 13:48 95 Nasal Cannula 5.00 03/23/17 03/23/17 03/23/17 07:00 15:00 23:00 Intake Total 480 ml Balance 480 ml Result Diagram: 03/23/17 0646 03/22/17 0845 Laboratory Results Laboratory Tests Test 03/23/17 06:46 03/23/17 11:15 03/23/17 11:45 White Blood Count 20.4 TH/MM3 Red Blood Count 5.31 MIL/MM3 Hemoglobin 15.1 GM/DL Hematocrit 46.4 % Mean Corpuscular Volume 87.3 FL Mean Corpuscular Hemoglobin 28.4 PG Mean Corpuscular Hemoglobin Concent 32.6 % Red Cell Distribution Width 14.9 % Platelet Count 117 TH/MM3 Mean Platelet Volume 9.0 FL Lactic Acid Level 1.6 mmol/L Troponin I 0.05 NG/ML Blood Gas Puncture Site CL Blood Gas Patient Temperature 98.6 Venous Blood pH 7.45 Venous Blood Partial Pressure CO2 28 mmHg Venous Blood Partial Pressure O2 50 mmHg Venous Blood HCO3 19 mmol/L Venous Blood Oxygen Saturation 82 % Venous Blood Oxygen Content 17.9 Vol % Venous Blood Base Excess -4.0 mmol/L Oxygen Delivery Device Venti Mask Blood Gas Inspired Oxygen 50 % Imaging Studies Last 24 hours Impressions Chest X-Ray 03/23/17 Signed Impressions: Service Date/Time: March 10:52 - CONCLUSION: 1. Developing lateral atelectatic changes above the left hemidiaphragm. Lungs are otherwise clear. 2. Stable degenerative changes of the dorsal spine. 3. Heart size is borderline but well compensated. Domingo Laura MD Abdomen X-Ray 03/23/17 Signed Impressions: Service Date/Time: March 10:57 - CONCLUSION: 1. Radiographically benign abdomen. 2. Stable position of Vena-Tech type IVC filter projecting over the L1 and L2 vertebral bodies. 3. Degenerative changes of the thoracolumbar spine as described above. Domingo Laura MD Administered Medications Medications (Trade) Dose Ordered Sig/Lizbeth Route PRN Reason Start Time Stop Time Status Last Admin Dose Admin Sodium Chloride (NS Flush) 2 ml UNSCH PRN IV FLUSH FLUSH AFTER USING IV ACCESS 03/05/17 22:00 03/23/17 05:34 Sodium Chloride (NS Flush) 2 ml BID IV FLUSH 03/06/17 09:00 03/23/17 09:00 Atorvastatin Calcium (Lipitor) 80 mg HS PO 03/05/17 22:15 03/22/17 22:04 Finasteride (Proscar) 5 mg DAILY PO 03/06/17 09:00 03/23/17 11:23 Fluticasone/ Vilanterol (Breo Ellipta 200-25 Inh) 1 puff DAILY INH 03/06/17 09:00 03/23/17 09:00 Gabapentin (Neurontin) 300 mg BID PO 03/05/17 22:15 03/23/17 11:21 Lisinopril (Prinivil) 10 mg DAILY PO 03/06/17 09:00 03/22/17 08:57 Polyethylene Glycol (Miralax) 17 gm DAILY PO 03/06/17 09:00 03/23/17 09:00 Prasugrel (Effient) 10 mg DAILY PO 03/06/17 09:00 Future Hold 03/12/17 08:51 Pantoprazole Sodium (Protonix) 40 mg DAILY PO 03/06/17 09:00 03/23/17 11:21 Multivitamins (Theragran) 1 tab DAILY PO 03/06/17 09:00 03/23/17 11:23 Albuterol Sulfate (Albuterol Neb) 2.5 mg Q4HR WHILE AWAKE NEB PRN NEB SHORTNESS OF BREATH 03/05/17 22:15 03/22/17 13:46 Ondansetron HCl (Zofran Inj) 4 mg Q6HR PRN IV PUSH NAUSEA OR VOMITING 03/05/17 22:15 03/17/17 20:32 Acetaminophen (Tylenol) 325 mg Q4H PRN PO FEVER 03/05/17 22:15 03/11/17 00:55 Metoprolol Tartrate (Lopressor) 50 mg Q12HR PO 03/06/17 10:00 03/23/17 11:21 Montelukast Sodium (Singulair) 10 mg HS PO 03/06/17 21:00 03/22/17 22:05 Morphine Sulfate (Morphine Inj) 4 mg Q3H PRN IV PUSH 6-10 03/09/17 16:30 03/13/17 09:57 Oxycodone/ Acetaminophen (Percocet 5-325 Mg) 1 tab Q4H PRN PO 3-5 03/09/17 16:30 03/22/17 00:43 Senna/Docusate Sodium (Arleth-Colace) 1 tab BID PO 03/14/17 12:30 03/23/17 11:21 Lactulose (Lactulose Liq) 30 ml DAILY PRN PO SEVERE CONSITIPATION 03/14/17 12:30 03/14/17 15:23 Methylprednisolone Sodium Succinate (SoluMEDROL INJ) 80 mg Q8HR IV PUSH 03/17/17 22:00 03/23/17 05:34 Aspirin (Aspirin Chew) 162 mg DAILY CHEW 03/19/17 09:00 03/23/17 11:21 Magnesium Hydroxide (Milk Of Magnesia Liq) 30 ml Q12HR PO 03/19/17 10:07 03/23/17 11:23 Duloxetine HCl (Magdalene Man) 60 mg DAILY PO 03/23/17 09:00 03/23/17 11:24 Objective Remarks GENERAL: Obese male, lying in bed, tachypneic. SKIN: Warm and dry. HEAD: Normocephalic. EYES: No scleral icterus. No injection or drainage. NECK: Supple, trachea midline. CARDIOVASCULAR: Regular rate and rhythm RESPIRATORY: +tachypneic. anterior laguna with occasional rhonchi. GASTROINTESTINAL: Abdomen soft, non-tender, nondistended. EXTREMITIES: No cyanosis NEUROLOGICAL: awake and alert, normal speech. moving all extremities. Assessment/Plan Assessment 76y/o male with h/o PAD admitted on 03/05/17 with dyspnea. History: --evaluated by vascular surgery for worsening PVD and superficial femoral artery occlusion --s/p tpa lysis and then femoral-popliteal bypass. --then developed right cerebellar ischemic infarct with punctate infarcts of the right occipital and left parietal lobes. --bc of the minimal degree of ICH, ac was placed on hold --LE U/S showed DVT bilaterally --had IVC filter placement on 03/21/17 Plan 1. 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 Bilateral lower extremity VTE. CVA with hemorrhagic component. Hypercoaguable work up performed and unrevealing. Protein C, AT III high, however this is not clinically significant. Antiphospholipid antibody work up with weak positive phospholipid IgM antibody. Factor V Leiden mutation negative. Prothrombin gene mutation ordered. clot/thrombocytopenia with withdraw of heparin. 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 SHAUN pending. Please avoid heparin products. hold anticoagulation for now. await results of CTA today. unfortunately patient has conflicting needs. UPDATE: CTA RETURNED SHOWING EXTENSIVE SADDLE PE. D/W DR. CHAWLA AND DR. NARANJO. WILL START ON ARGATROBAN IMMEDIATELY. Will need to wait to start coumadin until the patient is more stabilized as he will become more hypercoagulable in the short term period after starting coumadin. 2. Thrombocytopenia: No evidence of DIC, APLS, TMA. ? HIT. SHAUN pending 3. Leukocytosis: new since hospital admission. On steroids likely contributing. Continue to trend. Attending Statement The exam, history, and the medical decision-making described in the above note were completed with the assistance of the mid-level provider. I reviewed and agree with the findings presented. I attest that I had a [id number] encounter with the patient on the same day, and personally performed and documented my assessment and findings in the medical record. Difficult situation. Patient with CVA with intracerebral hemorrhage and hypercoaguable state with arterial thrombosis, venous thrombosis. S/p placement of IVC filter after discovery of bilateral VTE. He has developed saddle PE with respiratory distress. Recommend systemic full intensity anticoagulation in the setting of hypercoaguable state. Discussed with Dr. Chou from neurology. He does have approximately 15-20% chance of worsening intracranial hemorrhage on sytemic anticoagulation. SHAUN pending. Discussed above with at bedside. Jennifer Otto Mar 23, 2017 12:49 Cheryle Chawla MD Mar 24, 2017 07:22
[2017-03-23] MEDS ORDERED: IOHEXOL 350 MG/ML 10 ML VIAL (for RAD DIAG) IVCONTRAST ONE (12:50)
--- NOTE | 2017-03-23 12:57 | RADRPT ---
EXAM DATE/TIME: 03/23/2017 12:36 [facility] COMPARISON: CT BRAIN W/O CONTRAST, March 15, 2017, 8:11. INDICATIONS : Evaluate for embolism. IV CONTRAST: 71 cc Omnipaque 350 (iohexol) IV RADIATION DOSE: 21.78 CTDIvol (mGy) MEDICAL HISTORY : Cardiovascular disease. Hypertension. Blood clots in legs and chest, Asthma SURGICAL HISTORY : None. ENCOUNTER: Initial ACUITY: 1 day PAIN SCALE: 0/10 LOCATION: Bilateral chest TECHNIQUE: Volumetric scanning of the chest was performed using a pulmonary embolism protocol MIP images were re constructed. Using automated exposure control and adjustment of the mA and/or kV according to patien t size, radiation dose was kept as low as reasonably achievable to obtain optimal diagnostic quality images. DICOM format image data is available electronically for review and comparison. Follow-up recommendations for detected pulmonary nodules are based at a minimum on nodule size and pa tient risk factors according to Fleischner Society Guidelines. FINDINGS: PULMONARY ARTERIES: The examination demonstrates a saddle embolus with clot seen in the central portion of both the right and left pulmonary arteries. LUNGS: There are chronic interstitial changes. There are scattered areas of atelectatic change within both l ungs. No suspicious mass lesion is identified. PLEURAE: There is no pleural thickening or pleural effusion. MEDIASTINUM: There is good visualization of the great vessels of the middle mediastinum. No evidence of mediastin al or hilar adenopathy/mass. The ascending aorta is mildly aneurysmal at 4.7 cm. This dilation extend s into the proximal arch as well. The descending thoracic aorta is normal in caliber. MUSCULOSKELETAL: Within normal limits for patient age. MISCELLANEOUS: The visualized portion of upper abdomen demonstrates a 2.9-3.2 cm cyst within the left lobe of the li robert. CONCLUSION: 1. There is saddle embolus with clot seen in both the right and left central pulmonary arteries. Ther e is fairly extensive thrombus evident. 2. 2.9 x 3.2 cm cyst within the liver. 3. Mild aneurysmal dilation of the ascending aorta and proximal arch Judah Nelson MD on March 23, 2017 at 12:50 Board Certified Radiologist. This report was verified electronically.
[2017-03-23] MEDS ORDERED: MISCELLANEOUS PHARMACY INFORMATION OTHER ONE (13:15)
[2017-03-23] MEDS ORDERED: NALOXONE HCL 0.4 MG/ML AMP IV PUSH PRN (16:00)
[2017-03-23] MEDS ORDERED: LORazepam 2 MG/ML VIAL IV PUSH PRN (16:00)
[2017-03-23] MEDS ORDERED: MORPHINE SULFATE 4 MG/ML INJ IV PUSH PRN (16:00)
[2017-03-23] MEDS: ARGATROBAN INJ 250 MG in SODIUM CHLOR 0.9% 250 ML INJ 250 ML IV PRN (16:13)
--- NOTE | 2017-03-23 16:46 | HHI.PR ---
Subjective Remarks ALERT NO SOB SOB THIS AM CTA POSITIVE PE PLAN ANTICOAGS O2 NEEDED Objective Vital Signs Date Time Temp Pulse Resp B/P (MAP) Pulse Ox O2 Delivery O2 Flow Rate FiO2 03/23/17 14:00 96 03/23/17 13:26 98.3 96 17 112/76 (88) 93 03/23/17 12:38 88 Nasal Cannula 4.00 Humidified 03/23/17 11:34 97.2 91 20 109/77 (88) 93 03/23/17 08:00 95.4 76 20 127/78 (94) 91 03/23/17 07:58 Nasal Cannula 4.00 03/23/17 04:15 Nasal Cannula 4.00 Humidified 03/23/17 04:15 97.0 67 24 122/88 (99) 97 03/23/17 03:45 68 03/23/17 00:30 Nasal Cannula 4.00 Humidified 03/23/17 00:30 98.3 76 23 130/80 (97) 96 03/22/17 23:44 76 03/22/17 20:00 97.6 03/22/17 20:00 81 21 132/67 (88) 91 03/22/17 20:00 Nasal Cannula 4.00 Humidified 03/22/17 19:42 92 03/22/17 17:50 Nasal Cannula 5.00 I/O 03/22/17 03/22/17 03/22/17 03/23/17 03/23/17 03/23/17 07:00 15:00 23:00 07:00 15:00 23:00 Intake Total 340 ml 340 ml 100 ml 480 ml Balance 340 ml 340 ml 100 ml 480 ml Intake Oral 240 ml 240 ml 480 ml IV Total 100 ml 100 ml 100 ml # Voids 3 3 2 # Bowel Movements 1 1 0 Result Diagram: 03/23/17 0646 03/22/17 0845 Objective Remarks GENERAL: SKIN: Warm and dry. HEAD: Atraumatic. Normocephalic. EYES: Pupils equal and round. No scleral icterus. No injection or drainage. ENT: No nasal bleeding or discharge. Mucous membranes pink and moist. NECK: Trachea midline. No JVD. CARDIOVASCULAR: Regular rate and rhythm. RESPIRATORY: No accessory muscle use. Clear to auscultation. Breath sounds equal bilaterally. GASTROINTESTINAL: Abdomen soft, non-tender, nondistended. Hepatic and splenic margins not palpable. MUSCULOSKELETAL: Extremities without clubbing, cyanosis, or edema. No obvious deformities. NEUROLOGICAL: Awake and alert. No obvious cranial nerve deficits. Motor grossly within normal limits. Five out of 5 muscle strength in the arms and legs. Normal speech. PSYCHIATRIC: Appropriate mood and affect; insight and judgment normal. GENERAL: SKIN: Warm and dry. HEAD: Atraumatic. Normocephalic. EYES: Pupils equal and round. No scleral icterus. No injection or drainage. ENT: No nasal bleeding or discharge. Mucous membranes pink and moist. NECK: Trachea midline. No JVD. CARDIOVASCULAR: Regular rate and rhythm. RESPIRATORY: No accessory muscle use. Clear to auscultation. Breath sounds equal bilaterally. GASTROINTESTINAL: Abdomen soft, non-tender, nondistended. Hepatic and splenic margins not palpable. MUSCULOSKELETAL: Extremities without clubbing, cyanosis, or edema. No obvious deformities. NEUROLOGICAL: Awake and alert. No obvious cranial nerve deficits. Motor grossly within normal limits. Five out of 5 muscle strength in the arms and legs. Normal speech. PSYCHIATRIC: Appropriate mood and affect; insight and judgment normal. Assessment and Plan Assessment and Plan ? BRONCHIAL ASTHMA, now stable PVD s/p CVA ACUTE PE PLAN ANTICOAGULATE IF OK WITH NEURO O2 NEEDED PRN ALBUTEROL INREASE ACTIVITY Krysta,Krysta Ontiveros MD Mar 23, 2017 16:46
--- NOTE | 2017-03-23 17:45 | ECHRPT ---
Indication: SADDLE PULMONARY EMBOLI CONCLUSIONS Normal left ventricular size. Mild concentric left ventricular hypertrophy. The left ventricular systolic function is normal with an estimated ejection fraction in the range of 55-60%. The left atrial size is mildly dilated. Trace mitral valve regurgitation. No tricuspid regurgitation. BP: 112 / 76 HR: 96 Rhythm: Sinus MEASUREMENTS (Male / Female) Normal Values Technical Quality:Very technically difficult study 2D ECHO LV Diastolic Diameter PLAX 4.2 cm 4.2 - 5.9 / 3.9 - 5.3 cm LV Systolic Diameter PLAX 3.2 cm IVS Diastolic Thickness 1.2 cm 0.6 - 1.0 / 0.6 - 0.9 cm LVPW Diastolic Thickness 1.2 cm 0.6 - 1.0 / 0.6 - 0.9 cm LV Relative Wall Thickness 0.6 RV Internal Dim ED PLAX 1.7 cm LVOT Diameter 2.3 cm Aortic Root Diameter 3.1 cm LA Systolic Diameter LX 2.7 cm 3.0 - 4.0 / 2.7 - 3.8 cm M-MODE AV Cusp Separation MM 1.8 cm DOPPLER AV Peak Velocity 102.0 cm/s AV Peak Gradient 4.2 mmHg AV Mean Gradient 2.0 mmHg AV Velocity Time Integral 13.0 cm LVOT Peak Velocity 51.1 cm/s LVOT Peak Gradient 1.0 mmHg LVOT Velocity Time Integral 6.5 cm AV Area Cont Eq vti 2.1 cm AV Area Cont Eq pk 2.1 cm Mitral E Point Velocity 25.7 cm/s Mitral A Point Velocity 76.5 cm/s Mitral E to A Ratio 0.3 LV E' Lateral Velocity 9.3 cm/s Mitral E to LV E' Lateral Ratio 2.8 LV E' Septal Velocity 3.8 cm/s Mitral E to LV E' Septal Ratio 6.8 PV Peak Velocity 69.2 cm/s PV Peak Gradient 1.9 mmHg FINDINGS LEFT VENTRICLE Normal left ventricular size. Mild concentric left ventricular hypertrophy. The left ventricular systolic function is normal with an estimated ejection fraction in the range of 55-60%. RIGHT VENTRICLE Normal right ventricular size and systolic function. LEFT ATRIUM The left atrial size is mildly dilated. RIGHT ATRIUM The right atrial size is normal. ATRIAL SEPTUM The interatrial septum not well visualized. AORTA The aortic root and proximal ascending aorta are normal in size on limited imaging. MITRAL VALVE Trace mitral valve regurgitation. AORTIC VALVE Trileaflet aortic valve. No aortic valve stenosis or regurgitation. TRICUSPID VALVE No tricuspid regurgitation. PULMONARY VALVE The pulmonary valve is not well visualized. VESSELS The inferior vena cava was not well visualized. PERICARDIUM No pericardial effusion. Aureliano Lee MD, FACC (Electronically Signed) Final Date:23 March 2017 17:43
--- NOTE | 2017-03-23 20:30 | EKG ---
Date Performed: 03/23/2017 Time Performed: 07:13:38 PTAGE: 76 years EKG: Sinus rhythm . Inferior infarct - age undetermined Abnormal ECG PREVIOUS TRACING : 03/22/2017 06.59 Since the prior tracing, there has been no significant heaton DOCTOR: Alexis Rivera Interpretating Date/Time 03/23/2017 20:22:03
[2017-03-23] MEDS ORDERED: CHLORHEXIDINE GLUCONATE 2 % 1 PACK (2 CLOTHS)(extra cloths) TOPICAL PRN (21:15)
[2017-03-23] MEDS: MONTELUKAST SODIUM 10 MG TAB PO SCH (21:27)
[2017-03-23] MEDS: ATORVASTATIN 80 MG TAB PO SCH (21:27)
[2017-03-24] VITALS (30 sets, daily range): BP systolic 112–137; BP diastolic 75–91; PULSE 64–83; RESP 13–20; TEMP 97.4–97.7; O2SAT 89–96
[2017-03-24] MEDS: CHLORHEXIDINE GLUCONATE 2 % 1 PACK (2 CLOTHS)(taper/protocol) TOPICAL SCH (04:00)
[2017-03-24 05:17] LABS: AUTOMATED NEUTROPHIL # 18.2 TH/MM3 (1.8-7.7); BASOPHIL % 0.2 % (0.0-2.0); HEMATOCRIT 45.6 % (39.0-51.0); LYMPH % 1.8 % (9.0-44.0); LYMPHOCYTE # 0.4 TH/MM3 (1.0-4.8); MEAN CELL VOLUME 85.8 FL (80.0-100.0); MEAN CORPUSCULAR HEMOGLOBIN 28.2 PG (27.0-34.0); MEAN CORPUSCULAR HGB CONC 32.9 % (32.0-36.0); MEAN PLATELET VOLUME 9.2 FL (7.0-11.0); MONO % 2.5 % (0.0-8.0); MONOCYTE # 0.5 TH/MM3 (0-0.9); NEUT % 95.5 % (16.0-70.0); PLATELET COUNT 115 TH/MM3 (150-450); RED BLOOD COUNT 5.31 MIL/MM3 (4.50-5.90); WHITE BLOOD COUNT 19.1 TH/MM3 (4.0-11.0)
[2017-03-24] MEDS: methylPREDNISolone SOD SUCC 40 MG/1 ML VIAL IV PUSH SCH ×3 (05:23→20:04)
--- NOTE | 2017-03-24 07:39 | HHI.PR ---
Subjective Remarks AFIB CONFIRMED BY DR CARMEN one or two strips antiphospholidid up slightly dvt some HIT Objective Vital Signs Date Time Temp Pulse Resp B/P (MAP) Pulse Ox O2 Delivery O2 Flow Rate FiO2 03/24/17 06:00 68 03/24/17 04:01 93 21 03/24/17 04:00 97.4 66 16 123/88 (100) 92 03/24/17 04:00 66 03/24/17 02:00 73 03/24/17 00:00 69 03/24/17 00:00 97.7 69 15 133/87 (102) 91 03/23/17 22:00 92 03/23/17 21:16 93 Venturi Mask 50 03/23/17 20:00 99 03/23/17 20:00 97.5 99 17 124/85 (98) 91 03/23/17 19:15 94 Venturi Mask 6.00 50 03/23/17 18:00 105 03/23/17 18:00 105 18 109/85 (93) 90 03/23/17 17:00 100 17 115/81 (92) 92 03/23/17 16:00 97.6 104 20 133/81 (98) 92 03/23/17 16:00 104 03/23/17 15:00 94 23 121/80 (94) 90 03/23/17 14:00 96 17 118/78 (91) 93 03/23/17 14:00 93 Venturi Mask 6.00 50 03/23/17 14:00 96 03/23/17 13:26 98.3 96 17 112/76 (88) 93 03/23/17 12:38 88 Nasal Cannula 4.00 Humidified 03/23/17 11:34 97.2 91 20 109/77 (88) 93 03/23/17 08:00 95.4 76 20 127/78 (94) 91 03/23/17 07:58 Nasal Cannula 4.00 I/O 03/23/17 03/23/17 03/23/17 03/24/17 03/24/17 03/24/17 06:59 14:59 22:59 06:59 14:59 22:59 Intake Total 480 ml 503 ml 120 ml Output Total 100 ml 250 ml Balance 480 ml 403 ml -130 ml Intake Oral 480 ml 478 ml 120 ml IV Total 25 ml Output Urine Total 100 ml 250 ml # Voids 2 # Bowel Movements 0 1 Result Diagram: 03/24/17 0435 03/22/17 0845 Objective Remarks left eye still slight turn in no diplopia must be old no nystag vff face sym 06/17 t/o awake alert moves all well voice soft pupil = stable exam Assessment and Plan Assessment and Plan imp bilat cva old left cbllr new r cbllr with some blood in it new r parietal and left parietal left vert dom and ? if origin stenosis check cta check holter normally i would coumadinze but there is a hemorrhagic sign component to the r cbllr infarct so will wait few weeks does he need to be on asa and effient or could he dc later with blood in cbllm preferred oob need to watch his neuro exam with the r cbllr infarct 03/15/17 overall stable watch lle for some weakness vs post op pain mri last pm stable and could go to floor tomorrow if stable asa 81 ok no other blodd thinners but ini future will do anticoagulation as o/p fu holter cta left vert origin nl 03/21/17 stable neuro bilat cva ? afib cards to review tele strip dvt cta neck neg vert origin dz for filter antiph lipdi ab slight inc heme on case he has a mod amt blood in that r cbllr cva asa on sq hep now i had scd order in on 03/14/17 /03/23/17 i jenny stinson there is some hemorrhagic conmponent to the r cbllr infarct and some inc risk of more bleeding on coumadin also risk of cva with afib alsready had several we could consider starting coumadin will dw today a risk either way i dw pt this am 03/24/17 pe saddle yest on o2 doing well neurowise on anticoagulant now i dw nusu and heme inc risk of bleed maybe 20% in r cbllm but with all the clotting and afib and pe needs anticaog stable neuro / Lupillo Chou MD Mar 24, 2017 07:39
[2017-03-24] MEDS: AMIODARONE 200 MG TAB PO SCH (08:24)
[2017-03-24] MEDS: LISINOPRIL 10 MG TAB PO SCH (08:24)
[2017-03-24] MEDS: FINASTERIDE 5 MG TAB PO SCH (08:24)
[2017-03-24] MEDS: GABAPENTIN 300 MG CAP PO SCH ×2 (08:24→20:04)
[2017-03-24] MEDS: DOCUSATE SODIUM 50 MG/SENNA 8.6 MG TAB PO SCH ×2 (08:24→20:04)
[2017-03-24] MEDS: METOPROLOL TARTRATE 50 MG TAB PO SCH ×2 (08:24→20:04)
[2017-03-24] MEDS: DULoxetine HCl DR 60 MG CAP PO SCH (08:24)
[2017-03-24] MEDS: PANTOPRAZOLE SOD 40 MG DELAYED RELEASE TAB PO SCH (08:24)
[2017-03-24] MEDS: POLYETHYLENE GLYCOL 17 GM PKG PO SCH (08:26)
[2017-03-24] MEDS: MAGNESIUM HYDROXIDE SUSP 30 ML CUP PO SCH ×2 (08:26→20:04)
[2017-03-24] MEDS: MULTIVITAMIN TAB PO SCH (08:26)
[2017-03-24] MEDS: ASPIRIN 81 MG CHEW TAB CHEW SCH (08:26)
[2017-03-24] MEDS: SODIUM CHLORIDE 0.9% FLUSH 10 ML FLUSH IV FLUSH SCH ×2 (08:27→20:03)
--- NOTE | 2017-03-24 09:06 | HHI.FPPN ---
Subjective Remarks No acute events overnight. Pt currently on venti mask, O2 sats 93%. Afebrile. Vitals wnl. Patient nodded his head when asked if he was SOB. He denies CP. He also nodded his head when asked about b/l calf pain and acknowledges leg weakness. He denies N/V and abdominal pain. Urinary catheter in place. (Kalyani Loaiza MD R1) Objective Vitals Vital Signs Date Time Temp Pulse Resp B/P (MAP) Pulse Ox O2 Delivery O2 Flow Rate FiO2 03/24/17 06:00 68 03/24/17 04:01 93 21 03/24/17 04:00 97.4 66 16 123/88 (100) 92 03/24/17 04:00 66 03/24/17 02:00 73 03/24/17 00:00 69 03/24/17 00:00 97.7 69 15 133/87 (102) 91 03/23/17 22:00 92 03/23/17 21:16 93 Venturi Mask 50 03/23/17 20:00 99 03/23/17 20:00 97.5 99 17 124/85 (98) 91 03/23/17 19:15 94 Venturi Mask 6.00 50 03/23/17 18:00 105 03/23/17 18:00 105 18 109/85 (93) 90 03/23/17 17:00 100 17 115/81 (92) 92 03/23/17 16:00 97.6 104 20 133/81 (98) 92 03/23/17 16:00 104 03/23/17 15:00 94 23 121/80 (94) 90 03/23/17 14:00 96 17 118/78 (91) 93 03/23/17 14:00 93 Venturi Mask 6.00 50 03/23/17 14:00 96 03/23/17 13:26 98.3 96 17 112/76 (88) 93 03/23/17 12:38 88 Nasal Cannula 4.00 Humidified 03/23/17 11:34 97.2 91 20 109/77 (88) 93 I/O 03/23/17 03/23/17 03/23/17 03/24/17 03/24/17 03/24/17 07:00 15:00 23:00 07:00 15:00 23:00 Intake Total 480 ml 503 ml 120 ml Output Total 100 ml 250 ml Balance 480 ml 403 ml -130 ml Intake Oral 480 ml 478 ml 120 ml IV Total 25 ml Output Urine Total 100 ml 250 ml # Voids 2 # Bowel Movements 0 1 (Kalyani Loaiza MD R1) Result Diagram: 03/24/17 0435 03/22/17 0845 Objective Remarks GENERAL: Elderly gentleman lying in bed, in NAD RESPIRATORY: CTAB, currently on venti mask,O2 sat at 93% No increased WOB. CARDIOVASCULAR: RRR, no m/r/g. Radial and DP pulses 2+ and symmetric bilaterally. Brisk capillary refill. ABDOMEN: Soft, nondistended, nontender with BS in all 4 quadrants. No masses appreciated. MUSCULOSKELETAL: No edema appreciated. BL calf tenderness, negative Brenna's bilaterally. No swelling or skin changes. 2+ DP and PT pulses BL. LLE Femoropopliteal bypass incision sites, CDI. Pulses 2+ b/l. Sensation intact b/l. Moving toes and legs b/l. SKIN: Essentially clear with no significant rash or lesions. Adequate skin turgor. NEUROLOGICAL: Continued slurred speech, stable from prior exam. Otherwise CN 2- 12 intact. Patient does attempt to communicate verbally, however he primarily communicates through hand motions and yes/no questions. Strength 4/5 in b/l lower legs, decreased from prior exam. Strength 5/5 in upper extremities. Sensation intact throughout. : urinary catheter in place (placed 03/23) Procedures tPA therapy for thrombolysis of left SFA 03/08-03/09 (Kalyani Loaiza MD R1) A/P Assessment and Plan 76-year-old male s/p Fempop bypass surgery on 03/09 subsequently found to have acute right cerebellar infarct on 03/13, b/l DVTs on 03/20 s/p IVC filter placed 03/21, and saddle PE on 03/23. Patient transferred to [facility] on 03/23 for further monitoring. Patient is currently stable. Discharge Planning Pending clinical course Palliative care consulted to verify goals PT/OT/speech at rehab (Kalyani Loaiza MD R1) Attending Attestation Patient examined separately from resident physicians on rounds this morning at 9 AM Patient case discussed with resident physicians and assessment/plan was discussed with me I have read the above note and agree with the assessment/plan as discussed with me I was involved in all medical decision making with this patient Continue Argatroban GTT given bilateral saddle pulmonary emboli -Neurochecks every 4 hours given high risk of intracerebral bleed -Monitor on continuous pulse oximetry and telemetry Palliative care consult to clarify patient goals and options Hematology and neurology continues to follow, appreciate recommendations Gary Rosado MD (Gary Rosado MD) Problem List: (1) Saddle embolism of pulmonary artery ICD Codes: I26.92 - Saddle embolus of pulmonary artery without acute cor pulmonale Status: Acute Plan: CTA remarkable for saddle embolus with clot seen in both the right and left central pulmonary arteries. Neurology and Hematology consulted, patient immediately started on Argatroban 250mg IV Currently on Ventimask with saturation in the low 90s and RR of 16. 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 Currently on Argatroban 250mg IV due to saddle embolus and afib. He does have approximately 15-20% chance of worsening intracranial hemorrhage on systemic anticoagulation. -Continue Aspirin, Effient discontinued -CT previously recommended 04/01/17, will discuss with neuro -Neurologically stable -Neurosurgery consulted, recs appreciated -CT head reviewed, nonoperative mgt -Palliative care consulted to assist with medical goals -Neurochecks q4h -Continue PT/OT/ST, patient encouraged to participate in therapy to assist with discharge planning Previous Workup: Patient with slurred speech on 03/[address] and MRI showing R cerebellar edema and infarction consistent with CVA. -Head CT: 3.5 x 3.6 cm low attenuation area in the right cerebellar hemisphere area most characteristic of edema which could be secondary to underlying mass or infarction. Second smaller focal peripheral area of decreased attenuation involving the right parietal occipital watershed region concerning for edema as well. Further evaluation with MRI recommended. -Brain MRI: Proximally 5cm infarct of the right cerebellar hemisphere with small punctate infarcts in the right occipital lobe and left parietal lobe. Remote lacunar infarcts of the right basal ganglia and cerebellum. -Head MRA: Patient within normal limits for age -Neck MRA: No significant stenosis in the carotid arteries. Left vertebral artery is dominant. -Neck CTA: Minimal calcific plaquing nonstenotic bilateral carotid bulbs and initial segment of the right internal carotid. -Repeat Brain MRI: no significant change in the appearance of large acute infarction involving the right cerebellum as well as the much smaller acute infarctions involving the right occipital lobe and left high parietal cortex. -Repeat head CT: Stable right cerebellar infarction, fourth ventricle open, no signs of hydrocephalus (3) Paroxysmal atrial fibrillation ICD Codes: I48.0 - Paroxysmal atrial fibrillation Status: Acute Plan: -Cardiology consulted, recs appreciated. -SEAN: atrial septal aneurysm and PFO. PFO closure not recommended. Otherwise , unremarkable. -Paroxysmal atrial fibrillation noted 03/20 -Continue metoprolol 50mg PO q12hr and Amiodarone 200mg PO daily. -Continue anticoagulation as above. (4) DVT (deep venous thrombosis) ICD Codes: I82.409 - Acute embolism and thrombosis of unspecified deep veins of unspecified lower extremity Status: Acute Plan: -LE US 03/20/17: Positive venous Doppler bilaterally above the knee on the R and below the knee on the L. -IR consulted, IVC filter placed 03/20/17, abdominal X-ray 03/23 demonstrated stable position of IVC filter over L1 and L2 -Anticoagulation as above. (5) Hypercoagulopathy ICD Codes: D68.59 - Other primary thrombophilia Status: Acute Plan: -Hematology consulted, appreciated recommendations -Hypercoagulable workup performed and unrevealing. -Protein C, AT III high, however not clinically significant. -Antiphospholipid IgM antibody. 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 -Thoracic aneurysm aneurysm will be managed medically and with close follow- up for imaging -Goal systolic blood pressure of less than 120 (9) Superficial femoral artery occlusion ICD Codes: I70.209 - Unspecified atherosclerosis of [place] arteries of extremities, unspecified extremity Status: Resolved Plan: -Patient status post left femoropopliteal bypass femoral endarterectomy popliteal endarterectomy and patch on 03/09 -Patient w/ hx of PAD (10) HTN (hypertension) ICD Codes: I10 - Essential (primary) hypertension Status: Chronic Plan: -Continue lisinopril 10 mg daily, metoprolol tartrate 50 mg PO BID -Vasotec 1.25 mg IV when necessary for systolic blood pressure greater than 160 , diastolic blood pressure greater than 90 -Goal systolic blood pressure of less than 120 due to thoracic aortic aneurysm (11) CAD (coronary artery disease) ICD Codes: I25.10 - Atherosclerotic heart disease of [place] coronary artery without angina pectoris Status: Chronic Plan: -Patient with known CAD, status post coronary stents placed in 2007 -Continue home atorvastatin 80 mg at night, ASA 81 mg daily (12) BPH (benign prostatic hyperplasia) ICD Codes: N40.0 - Benign prostatic hyperplasia without lower urinary tract symptoms Plan: Continue home finasteride 5 mg by mouth daily (13) Constipation ICD Codes: K59.00 - Constipation, unspecified Status: Acute Plan: -Continue constipation protocol (14) FEN Plan: Diet: Heart healthy diet with nectar thickened liquids Oral fluids only Replete electrolytes as needed Neurochecks q4h Zofran as needed for nausea Tylenol as needed for fever Protonix for GI prophylaxis (Kalyani Loaiza MD R1) Problem Qualifiers (1) DVT (deep venous thrombosis): (2) Pneumonia: (3) HTN (hypertension): Qualified Codes: I10 - Essential (primary) hypertension (4) CAD (coronary artery disease): Qualified Codes: I25.10 - Atherosclerotic heart disease of [place] coronary artery without angina pectoris (5) Constipation: Qualified Codes: K59.00 - Constipation, unspecified Kalyani Loaiza MD R1 Mar 24, 2017 09:06 Gary Rosado MD Mar 24, 2017 15:02
[2017-03-24] MEDS: ARGATROBAN INJ 250 MG in SODIUM CHLOR 0.9% 250 ML INJ 250 ML IV PRN (10:30)
[2017-03-24] MEDS: FLUTICASONE 200 MCG/VILANTEROL 25 MCG INHALER INH SCH (11:19)
--- NOTE | 2017-03-24 14:33 | EKG ---
Date Performed: 03/23/2017 Time Performed: 10:25:38 PTAGE: 76 years EKG: Sinus rhythm . ST junctional depression is nonspecific Possible old inferior wall myocardial infarction Borderline ECG Compared to PREVIOUS TRACING , there is probably no significant serial change although the criteria f or the old inferior wall infarct on the present tracing are less diagnostic. PREVIOUS TRACIN2017 07.13 DOCTOR: Uzma Shannon Interpretating Date/Time 03/24/2017 14:28:51
--- NOTE | 2017-03-24 14:56 | EKG ---
Date Performed: 03/24/2017 Time Performed: 06:48:41 PTAGE: 76 years EKG: Sinus rhythm NONSPECIFIC T-WAVE ABNORMALITY Since previous tracing, no significant change noted BORDERLINE ECG PREVIOUS TRACING : 03/23/2017 10.25 DOCTOR: Uzma Shannon Interpretating Date/Time 03/24/2017 14:54:29
--- NOTE | 2017-03-24 15:36 | PD.ONC.PN ---
Subjective Subjective Remarks Afebrile overnight. Patient resting in bed with and son at bedside. He cannot speak, but nods his head yes or no to questions and follows commands. Objective Data Date Time Temp Pulse Resp B/P (MAP) Pulse Ox O2 Delivery O2 Flow Rate FiO2 03/24/17 15:00 75 03/24/17 14:30 79 18 95 03/24/17 14:15 80 20 95 03/24/17 14:00 71 03/24/17 14:00 71 16 125/78 (94) 93 03/24/17 13:45 69 15 93 03/24/17 13:30 72 16 93 03/24/17 13:15 73 17 91 03/24/17 13:00 68 16 125/77 (93) 92 03/24/17 13:00 68 03/24/17 12:45 64 14 92 03/24/17 12:30 68 16 94 03/24/17 12:15 64 14 92 03/24/17 12:00 66 14 118/75 (89) 93 03/24/17 12:00 66 03/24/17 11:00 66 03/24/17 11:00 66 16 123/78 (93) 94 03/24/17 10:01 66 15 127/79 (95) 94 03/24/17 10:01 66 03/24/17 10:00 67 03/24/17 10:00 67 15 93 03/24/17 09:00 74 13 112/80 (91) 92 03/24/17 09:00 74 03/24/17 08:01 71 15 132/88 (103) 94 03/24/17 08:01 71 03/24/17 08:00 69 03/24/17 08:00 69 14 93 03/24/17 07:15 99 Venturi Mask 6.00 21 03/24/17 06:00 68 03/24/17 04:01 93 21 03/24/17 04:00 97.4 66 16 123/88 (100) 92 03/24/17 04:00 66 03/24/17 02:00 73 03/24/17 00:00 69 03/24/17 00:00 97.7 69 15 133/87 (102) 91 03/23/17 22:00 92 03/23/17 21:16 93 Venturi Mask 50 03/23/17 20:00 99 03/23/17 20:00 97.5 99 17 124/85 (98) 91 03/23/17 19:15 94 Venturi Mask 6.00 50 03/23/17 18:00 105 03/23/17 18:00 105 18 109/85 (93) 90 03/23/17 17:00 100 17 115/81 (92) 92 03/23/17 16:00 97.6 104 20 133/81 (98) 92 03/23/17 16:00 104 03/24/17 03/24/17 03/24/17 07:00 15:00 23:00 Intake Total 120 ml Output Total 250 ml Balance -130 ml Result Diagram: 03/24/17 0435 03/22/17 0845 Laboratory Results Laboratory Tests Test 03/23/17 19:24 03/24/17 04:35 03/24/17 09:27 Activated Partial Thromboplast Time 55.8 SEC 54.4 SEC 55.1 SEC White Blood Count 19.1 TH/MM3 Red Blood Count 5.31 MIL/MM3 Hemoglobin 15.0 GM/DL Hematocrit 45.6 % Mean Corpuscular Volume 85.8 FL Mean Corpuscular Hemoglobin 28.2 PG Mean Corpuscular Hemoglobin Concent 32.9 % Red Cell Distribution Width 15.0 % Platelet Count 115 TH/MM3 Mean Platelet Volume 9.2 FL Neutrophils (%) (Auto) 95.5 % Lymphocytes (%) (Auto) 1.8 % Monocytes (%) (Auto) 2.5 % Eosinophils (%) (Auto) 0.0 % Basophils (%) (Auto) 0.2 % Neutrophils # (Auto) 18.2 TH/MM3 Lymphocytes # (Auto) 0.4 TH/MM3 Monocytes # (Auto) 0.5 TH/MM3 Eosinophils # (Auto) 0.0 TH/MM3 Basophils # (Auto) 0.0 TH/MM3 CBC Comment DIFF FINAL Differential Comment Blood Smear Pathologist Review Administered Medications Medications (Trade) Dose Ordered Sig/Lizbeth Route PRN Reason Start Time Stop Time Status Last Admin Dose Admin Sodium Chloride (NS Flush) 2 ml UNSCH PRN IV FLUSH FLUSH AFTER USING IV ACCESS 03/05/17 22:00 03/23/17 05:34 Sodium Chloride (NS Flush) 2 ml BID IV FLUSH 03/06/17 09:00 03/24/17 08:27 Atorvastatin Calcium (Lipitor) 80 mg HS PO 03/05/17 22:15 03/23/17 21:27 Finasteride (Proscar) 5 mg DAILY PO 03/06/17 09:00 03/24/17 08:24 Fluticasone/ Vilanterol (Breo Ellipta 200-25 Inh) 1 puff DAILY INH 03/06/17 09:00 03/24/17 11:19 Gabapentin (Neurontin) 300 mg BID PO 03/05/17 22:15 03/24/17 08:24 Lisinopril (Prinivil) 10 mg DAILY PO 03/06/17 09:00 03/24/17 08:24 Polyethylene Glycol (Miralax) 17 gm DAILY PO 03/06/17 09:00 03/24/17 08:26 Prasugrel (Effient) 10 mg DAILY PO 03/06/17 09:00 Future Hold 03/12/17 08:51 Pantoprazole Sodium (Protonix) 40 mg DAILY PO 03/06/17 09:00 03/24/17 08:24 Multivitamins (Theragran) 1 tab DAILY PO 03/06/17 09:00 03/24/17 08:26 Albuterol Sulfate (Albuterol Neb) 2.5 mg Q4HR WHILE AWAKE NEB PRN NEB SHORTNESS OF BREATH 03/05/17 22:15 03/22/17 13:46 Ondansetron HCl (Zofran Inj) 4 mg Q6HR PRN IV PUSH NAUSEA OR VOMITING 03/05/17 22:15 03/17/17 20:32 Acetaminophen (Tylenol) 325 mg Q4H PRN PO FEVER 03/05/17 22:15 03/11/17 00:55 Metoprolol Tartrate (Lopressor) 50 mg Q12HR PO 03/06/17 10:00 03/24/17 08:24 Montelukast Sodium (Singulair) 10 mg HS PO 03/06/17 21:00 03/23/17 21:27 Morphine Sulfate (Morphine Inj) 4 mg Q3H PRN IV PUSH 6-10 03/09/17 16:30 03/13/17 09:57 Oxycodone/ Acetaminophen (Percocet 5-325 Mg) 1 tab Q4H PRN PO 3-5 03/09/17 16:30 03/22/17 00:43 Senna/Docusate Sodium (Arleth-Colace) 1 tab BID PO 03/14/17 12:30 03/24/17 08:24 Lactulose (Lactulose Liq) 30 ml DAILY PRN PO SEVERE CONSITIPATION 03/14/17 12:30 03/14/17 15:23 Methylprednisolone Sodium Succinate (SoluMEDROL INJ) 80 mg Q8HR IV PUSH 03/17/17 22:00 03/24/17 14:18 Aspirin (Aspirin Chew) 162 mg DAILY CHEW 03/19/17 09:00 03/24/17 08:26 Magnesium Hydroxide (Milk Of Magnesia Liq) 30 ml Q12HR PO 03/19/17 10:07 03/24/17 08:26 Duloxetine HCl (Cymbalta Dr) 60 mg DAILY PO 03/23/17 09:00 03/24/17 08:24 Amiodarone HCl (Cordarone) 200 mg DAILY PO 03/23/17 09:00 03/24/17 08:24 Argatroban 250 mg/ Sodium Chloride 252.5 ml @ 13.06 mls/ hr TITRATE PRN IV aPTT < 50 03/23/17 13:15 03/24/17 10:30 Miscellaneous Information Patient in critical care unit? Ass... [id number] .XX 03/23/17 21:15 03/23/17 21:15 Chlorhexidine Gluconate (Chlorhexidine 2% Cloth) 3 pack DAILY@04 TOPICAL 03/24/17 04:00 03/28/17 04:01 03/24/17 04:00 Objective Remarks GENERAL: Elderly male, lying in bed resting. on O2 via NC SKIN: Warm and dry. HEAD: Normocephalic. EYES: No injection or drainage. NECK: Supple, trachea midline. CARDIOVASCULAR: Regular rate and rhythm RESPIRATORY: anterior [place] with occasional rhonchi. GASTROINTESTINAL: Abdomen soft, non-tender, nondistended. EXTREMITIES: No cyanosis, or edema. NEUROLOGICAL: awake. follows commands. able to move all extremities. Assessment/Plan Assessment 76y/o male with h/o PAD admitted on 03/05/17 with dyspnea. History: --evaluated by vascular surgery for worsening PVD and superficial femoral artery occlusion --s/p tpa lysis and then femoral-popliteal bypass. --then developed right cerebellar ischemic infarct with punctate infarcts of the right occipital and left parietal lobes. --bc of the minimal degree of ICH, ac was placed on hold --LE U/S showed DVT bilaterally --had IVC filter placement on 03/21/17 Plan 1. arterial thrombosis s/p tpa lysis and fem-pop bypass by surgery team + bilateral lower extremity venous thromboembolism + extensive saddle pulmonary emboli, with addition diagnosis of CVA with hemorrhagic component. I had an extensive discussion with family at the bedside ~20 minutes spent at bedside in discussion. we discussed that the patient has conflicting needs: he needs anticoagulation for his pulmonary emboli but has recent diagnosis of CVA with hemorrhagic component. discussed that we will continue Argatroban and assess the patient daily. if nimesh returns negative, can resume heparin. if nimesh returns positive, will need to continue Argatroban until platelet count is greater than 150k and then start coumadin. we discussed that anticoagulation will have to be stopped immediately if he develops life threatening bleeding. multiple questions answered. Attending Statement The exam, history, and the medical decision-making described in the above note were completed with the assistance of the mid-level provider. I reviewed and agree with the findings presented. I attest that I had a [id number] encounter with the patient on the same day, and personally performed and documented my assessment and findings in the medical record. Patient seen at bedside. Neuro exam stable. 76 yoM with arterial and venous thrombosis. He is s/p fem-pop bypass. Cerebellar stroke with hemorrhagic component. Bilateral lower extremity VTE with placement of IVC filter. Due to hypercoaguable state with development of saddle PE he will need to be on anticoagulation. 15-20% risk of rebleed in brain. 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 on argatroban awaiting return to NIMESH. Continue anticoagulation. Difficult clinical situation with risk of rebleed into brain with anticoaguation. However there is a need for anticoaguation given extensive clotting history. Jennifer Otto Mar 24, 2017 15:36 Cheryle Coleman MD Mar 25, 2017 07:22
--- NOTE | 2017-03-24 15:46 | PD.CONS ---
Consult Service Palliative Care Consult Requested By Dr. Ordaz . Primary Care Physician Unknown-patient lives in [place]. . Reason for Consultation a. To assist with evaluation and management of symptoms including: Dyspnea, weakness, edema b. To assist medical decision maker(s) with: better understanding of current medical conditions; weighing benefits/burdens of medical treatment options; making medical treatment decisions. HPI History of Present Illness This is a very pleasant 68-year-old male who presented to the emergency room with progressive dyspnea 03/05/17 which started about 2 PM that day. He was sitting in his chair when it started. He does have a history of asthma and so used his Ventolin but had continual worsening of the symptoms. Eventually this resolved but still felt more short of breath than his baseline. He lives in [place] and visits [place] for 2 months out of the year. Prior to leaving [place] he had seen his network systems engineer in November at which time he was diagnosed with asthma and was prescribed Breo and Ventolin. He has a concomitant history of coronary artery disease with stents 3 placed 13 years ago, obstructive sleep apnea on CPAP, erythrocytosis, peripheral artery disease , hypertension, BPH, GERD and an episode of transient global amnesia 3 years ago. During his admission he was also found to have episodes of paroxysmal atrial fibrillation, of which he was previously unaware. Initial workup ruled out ACS but did find an elevated d-dimer. 03/05 CTA was negative for pulmonary embolism but did show an incidental finding of a 4.3 cm descending thoracic aortic aneurysm. 2-D echocardiogram revealed a normal ejection fraction with no significant valvular dysfunction. Urine drug screen was negative. Presenting laboratory studies show WBC 8.2, hemoglobin 15.9, hematocrit 47.4, platelets 252, PT 10.8, INR 1.1, APTT 25.7, d-dimer 2.51, sodium 142, potassium 3.9, BUN 21, creatinine 1.16, troponin less than 0.02, B natriuretic peptide 34. Urinalysis was negative. Vascular surgery was consulted to evaluate the aortic aneurysm and felt that he did not require surgery at this time. Aortic ultrasound was negative for a AAA. They recommended good blood pressure control and CTA with runoff as a baseline study. This study showed an abrupt occlusion of the left superficial femoral artery at the abductor hiatus extending down to the trifurcation. This was suspected to be embolic as there was very little diffuse vascular disease. Adequate inflow, enlargement of the prostate, multiple bilateral renal cysts and small bilateral inguinal hernias were also noted on this study. On 03/08 he underwent ultrasound guided angiography showing occlusion of the distal SFA just above the abductor canal with prominent mature appearing collaterals. A second occlusion of the distal popliteal artery at the level of the ankle with thrombus extending to the distal SFA with mature appearing genicular collaterals was also noted. CTA examination demonstrates reconstitution of the proximal runoff vessels with three-vessel runoff so the procedure was then terminated. As the findings appeared chronic, planned TPA thrombolysis was not performed. On 03/09 the patient underwent left femoral popliteal bypass with PTFE graft, Popliteal endarterectomy and common femoral endarterectomy/external iliac endarterectomy. On 03/12 he awoke with acute worsening of his dyspnea, hypoxia and rapidly escalating oxygen requirements from 3 L progressively through nonrebreather then BiPAP with 100% FiO2, suspected to be flash pulmonary edema. He was aggressively diuresed with some improvement in his respiratory status. CTA done 03/23 showed a saddle embolus with clot seen in both the right and left central pulmonary arteries with fairly extensive thrombus evident. Coincidental findings on that study included a 2.9 x 3.2 cm cyst within the liver and mild aneurysmal dilation of the ascending aorta and proximal arch. On 03/13 the nurse reported patient having slurred speech which the patient reported he had had since admission in addition to difficulty with word finding. Speech therapy evaluation demonstrates fluency deficits with the phonemic errors intermittently and word finding deficits. No swallowing deficits were found during that study. Neurology was consulted. MRI of the brain was requested and showed approximately 5 cm infarct in the right cerebellar hemisphere with small punctate infarcts in the right occipital lobe and left parietal lobe. Remote lacunar infarcts were also found in the right basal ganglia and cerebellum.Head CT showed a 3.5 x 3.6 cm low-attenuation area in the right cerebellar hemisphere area most characteristic of edema, which could be secondary to underlying mass or infarction. Second smaller focal peripheral area of decreased attenuation involving the right parietal occipital watershed region concerning for edema as well. Neck CTA showed minimal calcific plaquing and nonstenotic bilateral carotid bulbs and initial segment of the right internal carotid. Head and neck MRA were negative. Follow-up brain MRI done 03/14 showed no significant change in the appearance of large acute infarct infarction involving the right cerebellum as well as the much smaller acute infarctions involving the right occipital lobe and left high parietal cortex. There is evidence of some hemorrhage within the right cerebellar infarct which is unchanged. Scattered periventricular and subcortical white matter small vessel ischemic changes are noted bilaterally. Old lacunar infarcts are noted within the bilateral basal ganglia and bilateral cerebellar hemispheres. Neurosurgery was subsequently consulted and recommended a transesophageal echocardiogram and hypercoagulable workup. On 03/20 he was found to have positive venous Doppler bilaterally above the knee on the right and below the knee on the left. Due to his recent hemorrhagic CVA , IVC filter placement was done 03/21. Cardiology was consulted. Transthoracic 2-D echocardiogram done 03/06 showed an EF of 60-65% with trace to mild MR and mild TR. Repeat Transthoracic echocardiogram was done 03/12 showing an ejection fraction of 55-60% with impaired ventricular relaxation (grade 1 diastolic dysfunction) with trace aortic and tricuspid valve regurgitation. Transesophageal echocardiogram was completed 03/16 showing a normal ejection fraction of 55-60%, atrial septal aneurysm and a likely patent foramen ovale. Valvular function showed no significant pathology. Pulmonology was also consulted due to the bronchial asthma which confirmed underlying airway obstruction. They recommend anticoagulation if cleared by neurology. Hematology was consulted for possible hypercoagulable disorder and labs have been ordered. Protein C, AT III was high but not considered clinically significant, antiphospholipid antibody workup was weakly positive with phospholipid IgM antibody. Factor V Leiden mutation was negative. Prothrombin gene mutation was ordered and is pending.T HIV was positive. SHAUN is pending. Due to the extensiveness of his saddle pulmonary embolus, our gastric band was initiated pending return of the remainder of the hypercoagulable workup labs. Plan is to start Coumadin once labs are returned and evaluated. Per joint discussion with neurology and hematology, patient was considered to have an approximate 15-20% chance of worsening intracranial hemorrhage on systemic anticoagulation but due to his arterial thrombosis, venous thrombosis, VT he bilaterally and saddle pulmonary embolus it was felt necessary. Current laboratory studies show sodium 138, potassium 4.3, BUN 34, creatinine 0.74, calcium 0.5, troponin 0.05, WBC 19.1, hemoglobin 15.0, hematocrit 45.6, platelets 1:15, APTT 55.1. Patient is seen with his at bedside. He is mostly aphasic. He can speak and occasional word but usually tries to gesture with his hand is. He is significantly short of breath. History is primarily obtained from the but is able to nod agreement or disagreement with her answers. . Function/Cognitive Trajectory He has noted some decline with increasing dyspnea, dependent edema and fatigue. Per his he is frequently up early to sit in the recliner where he falls back to sleep. This improved after being diagnosed with obstructive sleep apnea and starting to use his CPAP. . Review of Systems ROS Limitations: Clinical Condition Constitutional: COMPLAINS OF: Fatigue, Weight gain, Dizziness, Generalized weakness, Sleep problems Eyes: DENIES: Blurred vision, Diplopia, Eye inflammation, Eye pain, Vision loss , Photosensitivity, Double Vision, Blind spots Ears, nose, mouth, throat: COMPLAINS OF: Hoarseness Respiratory: COMPLAINS OF: Shortness of breath Cardiovascular: COMPLAINS OF: Dyspnea on Exertion, Lower Extremity Edema Gastrointestinal: DENIES: Abdominal pain, Black stools, Bloody stools, Constipation, Diarrhea, Nausea, Vomiting, Difficulty Swallowing, Anorexia, Dyspepsia or heartburn, Excessive gas, Bloating, Vomiting blood Genitourinary: DENIES: Sexual dysfunction, Urinary frequency, Urinary incontinence, Urgency, Hematuria, Dysuria, Nocturia, Penile Discharge, Testicular Pain, Testicular Swelling, Hesitancy, Dribbling, Decreased stream Musculoskeletal: DENIES: Joint pain, Muscle aches, Stiffness, Joint Swelling, Back pain, Neck pain, Decreased range of motion Integumentary: DENIES: Abnormal pigmentation, Nail changes, Pruritus, Rash, Nodules, Tumors, Excessive dryness, Non-healing sores Hematologic/Lymphatics: DENIES: Bruising, Lymphadenopathy, Prolonged bleed w/ proced, History of transfusions Immunologic/Allergic: DENIES: Eczema, Urticaria Neurologic: COMPLAINS OF: Speech Problems Psychiatric: DENIES: Anxiety, Confusion, Mood changes, Depression, Hallucinations, Agitation, Suicidal Ideation, Homicidal Ideation, Delusions, Anhedonia Past Family Social History Coded Allergies: chocolate flavor (Verified Allergy, Unknown, 03/05/17) milk (Verified Allergy, Unknown, 03/05/17) orange juice (Verified Allergy, Unknown, 03/05/17) peanut (Verified Allergy, Unknown, 03/05/17) Uncoded Allergies: granulated sugar (Allergy, Unknown, 03/05/17) Past Medical History Coronary artery disease status post 3 stents placed in 2003 Hypertension BPH GERD Peripheral artery disease Erythrocytosis Episode of transient global amnesia 3 years ago . Past Surgical History Coronary artery stent placement 3 in 2003 Cholecystectomy 2011 Herniated disc repair 2005 . Reported Medications Reported Meds & Active Scripts Active Levaquin (Levofloxacin) 750 Mg Tablet 750 Mg PO DAILY Prednisone 10 Mg Tab 10 Mg PO DAILY Take 40mg for 7days, then 30mg for the next 7 days, and 20mg for the next 7 days, and then 10mg for the last 7 days Pantoprazole (Pantoprazole Sodium) 40 Mg Tab 40 Mg PO DAILY Montelukast (Montelukast Sodium) 10 Mg Tab 10 Mg PO HS Duloxetine DR (Duloxetine HCl) 60 Mg Capdr 60 Mg PO DAILY Tgt Aspirin (Aspirin) 81 Mg Chw 162 Mg CHEW DAILY Lopressor (Metoprolol Tartrate) 50 Mg Tab 50 Mg PO Q12HR Amiodarone (Amiodarone HCl) 200 Mg Tab 400 Mg PO Q12HR Reported Multiple Vitamin 1 Tab 1 Tab PO DAILY Fish Oil (Campton-3 Fatty Acids) 340 Mg-1,000 Mg Cap Cranberry Urinary Comfort (Vitamins C & E) 1 Cap 2 Cap PO DAILY Miralax Powder (Polyethylene Glycol 3350 Powder) 17 Gm Powd 17 Gm PO DAILY Mix and dissolve one measuring cap-ful (17 grams) in water or juice. Ventolin Hfa 18 GM Inh (Albuterol Sulfate) 90 Mcg/Act Aer 2 Puff INH Q4-6H PRN Breo Ellipta Inh (Fluticasone/Vilanterol) 200-25 Mcg/Act Inh 1 Puff INH DAILY Use daily at the same time. Finasteride 5 Mg Tab 5 Mg PO DAILY Do not crush. Lisinopril 10 Mg Tab 10 Mg PO DAILY Atorvastatin (Atorvastatin Calcium) 80 Mg Tab 80 Mg PO HS Gabapentin 300 Mg Cap 300 Mg PO BID . Current Medications Medications (Trade) Dose Ordered Sig/Lizbeth Route Start Time Stop Time Status Last Admin (NS Flush) 2 ml UNSCH PRN IV FLUSH 03/05/17 22:00 03/23/17 05:34 (NS Flush) 2 ml BID IV FLUSH 03/06/17 09:00 03/24/17 08:27 (Lipitor) 80 mg HS PO 03/05/17 22:15 03/23/17 21:27 (Proscar) 5 mg DAILY PO 1/22/18 09:00 03/24/17 08:24 (Breo Ellipta 200-25 Inh) 1 puff DAILY INH 03/06/17 09:00 03/24/17 11:19 (Neurontin) 300 mg BID PO 03/05/17 22:15 03/24/17 08:24 (Prinivil) 10 mg DAILY PO 03/06/17 09:00 03/24/17 08:24 (Miralax) 17 gm DAILY PO 03/06/17 09:00 03/24/17 08:26 (Effient) 10 mg DAILY PO 03/06/17 09:00 Future Hold 03/12/17 08:51 (Protonix) 40 mg DAILY PO 03/06/17 09:00 03/24/17 08:24 (Theragran) 1 tab DAILY PO 03/06/17 09:00 03/24/17 08:26 (Albuterol Neb) 2.5 mg Q4HR WHILE AWAKE NEB PRN NEB 03/05/17 22:15 03/22/17 13:46 (Zofran Inj) 4 mg Q6HR PRN IV PUSH 03/05/17 22:15 03/17/17 20:32 (Tylenol) 325 mg Q4H PRN PO 03/05/17 22:15 03/11/17 00:55 (Lopressor) 50 mg Q12HR PO 03/06/17 10:00 03/24/17 08:24 (Singulair) 10 mg HS PO 03/06/17 21:00 03/23/17 21:27 (Morphine Inj) 4 mg Q3H PRN IV PUSH 03/09/17 16:30 03/13/17 09:57 (Percocet 5-325 Mg) 1 tab Q4H PRN PO 03/09/17 16:30 03/22/17 00:43 (Arleth-Colace) 1 tab BID PO 03/14/17 12:30 03/24/17 08:24 (Senokot) 17.2 mg Q12H PRN PO 03/14/17 12:30 (Dulcolax Supp) 10 mg DAILY PRN RECTAL 03/14/17 12:30 (Lactulose Liq) 30 ml DAILY PRN PO 03/14/17 12:30 03/14/17 15:23 (SoluMEDROL INJ) 80 mg Q8HR IV PUSH 03/17/17 22:00 03/24/17 05:23 (Aspirin Chew) 162 mg DAILY CHEW 03/19/17 09:00 03/24/17 08:26 (Milk Of Magnesia Liq) 30 ml Q12HR PO 03/19/17 10:07 03/24/17 08:26 (Cymbalta Dr) 60 mg DAILY PO 03/23/17 09:00 03/24/17 08:24 (Cordarone) 200 mg DAILY PO 03/23/17 09:00 03/24/17 08:24 Argatroban 250 mg/ Sodium Chloride 252.5 ml @ 13.06 mls/ hr TITRATE PRN IV 03/23/17 13:15 03/24/17 10:30 (Ativan Inj) 1 mg Q15M PRN IV PUSH 03/23/17 16:00 (Morphine Inj) 2 mg Q10M PRN IV PUSH 03/23/17 16:00 (Narcan Inj) 0.4 mg UNSCH PRN IV PUSH 03/23/17 16:00 Miscellaneous Information Patient in critical care unit? Ass... [id number] .XX 03/23/17 21:15 03/23/17 21:15 (Chlorhexidine 2% Cloth) 3 pack DAILY@04 TOPICAL 03/24/17 04:00 03/28/17 04:01 03/24/17 04:00 (Chlorhexidine 2% Cloth) 3 pack UNSCH PRN TOPICAL 03/23/17 21:15 03/28/17 21:07 . Family History Father at age 41 from a suspected lightening strike. Mother in her mid 80s of natural causes. . Substance Use Tobacco: Quit when he was 19. Alcohol: Has 1-2 glasses of either beer or wine at night with dinner. Prescription med abuse: None. Illicits: None. . Psychosocial History He was born in [facility] [place] and subsequently moved to [place]. He was in the [employer] for a short time. He has been to his for 13 years and has 4 children from a previous marriage. He worked as a computer support specialist and retired about 13 years ago. . Spiritual/Cultural Factors He is Faith and would like [facility] [employer]. . Living Will: Never completed Health Care Surrogate: Never completed Durable Power of Surgical Resident: Never completed Physical Exam Vital Signs Date Time Temp Pulse Resp B/P (MAP) Pulse Ox O2 Delivery O2 Flow Rate FiO2 03/24/17 11:00 66 16 123/78 (93) 94 03/24/17 10:01 66 15 127/79 (95) 94 03/24/17 10:00 67 15 93 03/24/17 09:00 74 13 112/80 (91) 92 03/24/17 08:01 71 15 132/88 (103) 94 03/24/17 08:00 69 14 93 03/24/17 07:15 99 Venturi Mask 6.00 21 03/24/17 06:00 68 03/24/17 04:01 93 21 03/24/17 04:00 97.4 66 16 123/88 (100) 92 03/24/17 04:00 66 03/24/17 02:00 73 03/24/17 00:00 69 03/24/17 00:00 97.7 69 15 133/87 (102) 91 03/23/17 22:00 92 03/23/17 21:16 93 Venturi Mask 50 03/23/17 20:00 99 03/23/17 20:00 97.5 99 17 124/85 (98) 91 03/23/17 19:15 94 Venturi Mask 6.00 50 03/23/17 18:00 105 03/23/17 18:00 105 18 109/85 (93) 90 03/23/17 17:00 100 17 115/81 (92) 92 03/23/17 16:00 97.6 104 20 133/81 (98) 92 03/23/17 16:00 104 03/23/17 15:00 94 23 121/80 (94) 90 03/23/17 14:00 96 17 118/78 (91) 93 03/23/17 14:00 93 Venturi Mask 6.00 50 03/23/17 14:00 96 Exam CONSTITUTIONAL/GENERAL: This is an adequately nourished patient, in no apparent distress. TUBES/LINES/DRAINS: PIV 2 SKIN: No jaundice, rashes, or lesions. Ecchymoses on upper extremities. No wounds seen anteriorly. Skin temperature appropriate. Not diaphoretic. HEAD: Atraumatic. Normocephalic. EYES: Pupils equal and round and reactive. Extraocular motions intact. No scleral icterus. No injection or drainage. Fundi not examined. ENT: Hearing grossly normal. Nose without bleeding or purulent drainage. Throat without visible erythema, exudates, masses, or lesions. NECK: Trachea midline. Supple, nontender. No palpable thyroid enlargement or nodularity. CARDIOVASCULAR: Regular rate and rhythm without murmurs, gallops, or rubs. No JVD. Peripheral pulses symmetric. RESPIRATORY/CHEST: Symmetric, unlabored respirations. Clear to auscultation. Breath sounds equal bilaterally. No wheezes, rales, or rhonchi. GASTROINTESTINAL: Abdomen soft, obese, non-tender, nondistended. No hepato- splenomegaly, or palpable masses. No guarding. Bowel sounds present. GENITOURINARY: Without palpable bladder distension. Rodriguez catheter in place. MUSCULOSKELETAL: Extremities without clubbing, cyanosis, or edema. No joint tenderness or effusion noted. No calf tenderness. No mottling or clubbing. LYMPHATICS: No palpable cervical or supraclavicular adenopathy. NEUROLOGICAL: Awake with intermittent periods of drowsiness. Motor and sensory grossly within normal limits. Follows commands. Has difficulty speaking. Moves all extremities. PSYCHIATRIC: No obvious anxiety/depression. no apparent hallucinations or other psychotic thought process. . Diagnostic Tests Laboratory Laboratory Tests Test 03/22/17 06:09 03/22/17 08:45 03/23/17 06:46 03/23/17 11:15 White Blood Count 14.0 TH/MM3 (4.0-11.0) 20.4 TH/MM3 (4.0-11.0) Red Blood Count 5.07 MIL/MM3 (4.50-5.90) 5.31 MIL/MM3 (4.50-5.90) Hemoglobin 14.5 GM/DL (13.0-17.0) 15.1 GM/DL (13.0-17.0) Hematocrit 43.5 % (39.0-51.0) 46.4 % (39.0-51.0) Mean Corpuscular Volume 85.9 FL (80.0-100.0) 87.3 FL (80.0-100.0) Mean Corpuscular Hemoglobin 28.7 PG (27.0-34.0) 28.4 PG (27.0-34.0) Mean Corpuscular Hemoglobin Concent 33.3 % (32.0-36.0) 32.6 % (32.0-36.0) Red Cell Distribution Width 14.5 % (11.6-17.2) 14.9 % (11.6-17.2) Platelet Count 126 TH/MM3 (150-450) 117 TH/MM3 (150-450) Mean Platelet Volume 9.1 FL (7.0-11.0) 9.0 FL (7.0-11.0) Neutrophils (%) (Auto) 95.6 % (16.0-70.0) Lymphocytes (%) (Auto) 2.0 % (9.0-44.0) Monocytes (%) (Auto) 2.3 % (0.0-8.0) Eosinophils (%) (Auto) 0.0 % (0.0-4.0) Basophils (%) (Auto) 0.1 % (0.0-2.0) Neutrophils # (Auto) 13.3 TH/MM3 (1.8-7.7) Lymphocytes # (Auto) 0.3 TH/MM3 (1.0-4.8) Monocytes # (Auto) 0.3 TH/MM3 (0-0.9) Eosinophils # (Auto) 0.0 TH/MM3 (0-0.4) Basophils # (Auto) 0.0 TH/MM3 (0-0.2) CBC Comment DIFF FINAL Differential Comment Blood Urea Nitrogen 34 MG/DL (7-18) Creatinine 0.74 MG/DL (0.60-1.30) Random Glucose 103 MG/DL (74-106) Calcium Level 8.0 MG/DL (8.5-10.1) Sodium Level 138 MEQ/L (136-145) Potassium Level 4.3 MEQ/L (3.5-5.1) Chloride Level 106 MEQ/L (98-107) Carbon Dioxide Level 23.6 MEQ/L (21.0-32.0) Anion Gap 8 MEQ/L (5-15) Estimat Glomerular Filtration Rate 102 ML/MIN (>89) Lactic Acid Level 1.6 mmol/L (0.4-2.0) Troponin I 0.05 NG/ML (0.02-0.05) Test 03/23/17 11:45 03/23/17 13:42 03/23/17 15:00 03/23/17 19:24 Blood Gas Puncture Site CL Blood Gas Patient Temperature 98.6 Venous Blood pH 7.45 (7.360-7.400) Venous Blood Partial Pressure CO2 28 mmHg (44-48) Venous Blood Partial Pressure O2 50 mmHg (35-40) Venous Blood HCO3 19 mmol/L (22-26) Venous Blood Oxygen Saturation 82 % (70-76) Venous Blood Oxygen Content 17.9 Vol % (9.0-17.0) Venous Blood Base Excess -4.0 mmol/L (-2-2) Oxygen Delivery Device Venti Mask Blood Gas Inspired Oxygen 50 % Activated Partial Thromboplast Time 23.0 SEC (24.3-30.1) 55.8 SEC (24.3-30.1) Nasal Screen MRSA (PCR) MRSA NOT DETECTED (NOT Test 03/24/17 04:35 03/24/17 09:27 White Blood Count 19.1 TH/MM3 (4.0-11.0) Red Blood Count 5.31 MIL/MM3 (4.50-5.90) Hemoglobin 15.0 GM/DL (13.0-17.0) Hematocrit 45.6 % (39.0-51.0) Mean Corpuscular Volume 85.8 FL (80.0-100.0) Mean Corpuscular Hemoglobin 28.2 PG (27.0-34.0) Mean Corpuscular Hemoglobin Concent 32.9 % (32.0-36.0) Red Cell Distribution Width 15.0 % (11.6-17.2) Platelet Count 115 TH/MM3 (150-450) Mean Platelet Volume 9.2 FL (7.0-11.0) Neutrophils (%) (Auto) 95.5 % (16.0-70.0) Lymphocytes (%) (Auto) 1.8 % (9.0-44.0) Monocytes (%) (Auto) 2.5 % (0.0-8.0) Eosinophils (%) (Auto) 0.0 % (0.0-4.0) Basophils (%) (Auto) 0.2 % (0.0-2.0) Neutrophils # (Auto) 18.2 TH/MM3 (1.8-7.7) Lymphocytes # (Auto) 0.4 TH/MM3 (1.0-4.8) Monocytes # (Auto) 0.5 TH/MM3 (0-0.9) Eosinophils # (Auto) 0.0 TH/MM3 (0-0.4) Basophils # (Auto) 0.0 TH/MM3 (0-0.2) CBC Comment DIFF FINAL Differential Comment Blood Smear Pathologist Review Activated Partial Thromboplast Time 54.4 SEC (24.3-30.1) 55.1 SEC (24.3-30.1) . Result Diagram: 03/24/17 0435 03/22/17 0845 Microbiology Microbiology Date/Time Source Procedure Growth Status 03/17/17 16:39 Blood Peripheral Aerobic Blood Culture - Final NO GROWTH IN 5 DAYS Complete 03/17/17 16:39 Blood Peripheral Anaerobic Blood Culture - Final NO GROWTH IN 5 DAYS Complete 03/05/17 17:47 Nasal Aspirate Influenza Types A,B Antigen (ASTER) - Final NEGATIVE FOR FLU A AND B ANTIGEN.... Complete 03/17/17 19:00 Urine Clean Catch Urine Culture - Final Staphylococcus Epidermidis Complete . Imaging Last Impressions Chest X-Ray 03/23/17 0000 Signed Impressions: Service Date/Time: March 10:52 - CONCLUSION: 1. Developing lateral atelectatic changes above the left hemidiaphragm. Lungs are otherwise clear. 2. Stable degenerative changes of the dorsal spine. 3. Heart size is borderline but well compensated. Domingo Laura MD CT Angiography 03/23/17 0000 Signed Impressions: Service Date/Time: March 12:36 - CONCLUSION: 1. There is saddle embolus with clot seen in both the right and left central pulmonary arteries. There is fairly extensive thrombus evident. 2. 2.9 x 3.2 cm cyst within the liver. 3. Mild aneurysmal dilation of the ascending aorta and proximal arch Judah Nelson MD Abdomen X-Ray 03/23/17 0000 Signed Impressions: Service Date/Time: March 10:57 - CONCLUSION: 1. Radiographically benign abdomen. 2. Stable position of Vena-Tech type IVC filter projecting over the L1 and L2 vertebral bodies. 3. Degenerative changes of the thoracolumbar spine as described above. Domingo Laura MD IVC Filter Placement X-Ray 03/21/17 Signed Impressions: Service Date/Time: Tuesday, March 21, 2017 11:48 - CONCLUSION: Uncomplicated inferior vena cava filter placement as above. Lupillo Arellano MD Lower Extremity Ultrasound 03/20/17 0000 Signed Impressions: Service Date/Time: Monday, March 20, 2017 14:25 - CONCLUSION: Positive venous Doppler bilaterally above the knee on the right and below the knee on the left. Seymour Nelson MD FACR Head CT 03/15/17 0800 Signed Impressions: Service Date/Time: Wednesday, March 15, 2017 08:11 - CONCLUSION: 1. Stable CT of the brain including prominent area of low-density in the right cerebellum could be an acute/subacute infarct. This is unchanged. 2. Old appearing small infarcts in the right parietal/occipital lobe and left cerebellum are stable. Bradley Simmons MD Neck CTA 03/14/17 Signed Impressions: Service Date/Time: Tuesday, March 14, 2017 10:44 - CONCLUSION: Minimal calcific plaquing nonstenotic bilateral carotid bulbs and initial segment of the right internal carotid. Lakhwinder Adams MD Brain MRI 03/14/17 Signed Impressions: Service Date/Time: Tuesday, March 14, 2017 19:56 - CONCLUSION: 1. No significant change in the appearance of large acute infarction involving the right cerebellum as well as the much smaller acute infarctions involving the right occipital lobe and left high parietal cortex. There is evidence of some hemorrhage within the right cerebellar infarct which is unchanged. 2. Scattered periventricular and subcortical white matter small vessel ischemic changes are noted bilaterally. 3. Old lacunar infarcts are noted within the bilateral basal ganglia and bilateral cerebellar hemispheres. Shai Thrasher MD Neck Magnetic Resonance Angiography 03/13/171852 Signed Impressions: Service Date/Time: Monday, March 13, 2017 21:58 - CONCLUSION: 1. No significant stenosis in the carotid arteries. Left vertebral artery is dominant. Adrián Caicedo MD Head Magnetic Resonance Angiography 03/13/171852 Signed Impressions: Service Date/Time: Monday, March 13, 2017 21:58 - CONCLUSION: 1. Patient within normal limits for age. Adrián Caicedo MD Lower Extremity Angiography 1/24/18 0000 Signed Impressions: Service Date/Time: Wednesday, March 08, 2017 13:02 - CONCLUSION: 1. Distal left above-knee popliteal artery occlusion with plaque and chronic thrombus extending to the distal SFA with mature genicular collaterals. Given the apparent chronicity of the findings, planned TPA thrombolysis was not performed. Donovan Baez MD Liver Ultrasound 03/07/17 0000 Signed Impressions: Service Date/Time: Tuesday, March 07, 2017 18:01 - CONCLUSION: 1. Multiple large right renal cysts. No hydronephrosis a very ductal dilatation. Cholecystectomy. Mild fatty liver. Adrián Caicedo MD Aorta w/Runoff CTA 03/06/17 0000 Signed Impressions: Service Date/Time: Tuesday, March 07, 2017 11:30 - CONCLUSION: 1. There is abrupt occlusion of the left superficial femoral at the adductor hiatus and extending down to the trifurcation. This appears possibly embolic as there is very little diffuse vascular disease. 2. Adequate inflow a variety. 3. Enlargement of the prostate. 4. Multiple renal cysts bilaterally. 5. Enlargement of the prostate. 6. Small bilateral inguinal hernias. Judah Nelson MD Aorta Ultrasound 03/06/17 0000 Signed Impressions: Service Date/Time: Monday, March 06, 2017 07:48 - CONCLUSION: 1. No abdominal aortic aneurysm. Size measurements are given above. Judah Nelson MD Carotid Artery Ultrasound 03/05/17 0000 Signed Impressions: Service Date/Time: Sunday, March 05, 2017 22:16 - CONCLUSION: 1. No hemodynamically significant stenosis in either carotid artery. 2. Nonvisualization right vertebral artery. Bradley Simmons MD . Procedures 03/06-electroencephalogram 03/09-left femoropopliteal bypass with PTFE graft, popliteal endarterectomy and common femoral endarterectomy, external iliac endarterectomy. 03/16-transesophageal echocardiogram . Patient/Family Conference Present at Family Conference: Spoke with the patient and his , Shruthi at bedside. Reviewed palliative care purpose and focus to include the items listed below. Reviewed clinical events in progress as well as psychosocial history and goals of care. Discussed the challenges of treatment considering the patient's history of both clotting and bleeding. The began to probe the possibilities of patient's continued decline, but did not feel he was appropriate for hospice at this time. . Family Conference Time (mins): 45 Family Conference Location: Bedside Issues Discussed: * Palliative care role, purpose, approach * Additional medical, psychosocial, and spiritual history * Patients general health, functional status, and cognitive changes in the months leading up to the current hospitalization * Patient/family understanding of the current medical problems * Patient/family understanding of prognosis * Patients goals of care as best understood from advance directives and/or conversations and/or values * Current medical treatment options and benefits/burdens of those options * Likely scenarios comparing ongoing aggressive care with a transition to comfort measures only * Questions answered to the best of my ability * Palliative care contact information provided Assessment and Plan Disease Oriented Problem List: (1) PAD (peripheral artery disease) (2) BPH (benign prostatic hyperplasia) (3) CAD (coronary artery disease) (4) Paroxysmal atrial fibrillation (5) CVA (cerebral vascular accident) (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 He was in the [employer] reserve for a short time. He has been to his for 13 years and has 4 children from a previous marriage. He worked as a computer support specialist and retired about 13 years ago. Spiritual: He is Faith and would wish for a rotoformer backtender visit for sacraments of this it. Legal: No issues noted. Ethical issues impacting care: No issues noted. . Important Contacts -Shruthi Gallagher Son Moreno Gallagher Daughter - Steph Aileen, [place] Daughter Marcela Rodriguez, [place] Son - Conner Gallagher, [place] . Prognosis His prognosis is guarded. He has multiple risk factors for continued thromboembolic disease to include suspected paroxysmal atrial fibrillation, recent CVA, patent foramen ovale, positive HIT, peripheral artery disease, known pulmonary embolus, bilateral VTE and questionable hypercoagulable state. He is also at risk for bleeding due to the need for anticoagulation as well as small hemorrhagic component to last CVA. Per neurology he has a 15-20% risk of bleeding on anticoagulation due to his recent stroke with hemorrhagic component. . Code Status: No Code Plan PLAN: Legal decision maker: Patient at this time cannot express himself clearly and is allowing his to be the primary decision maker. He is able to listen and signal with nodding his agreement or disagreement. At this time would recommend shared decision making. Goals: Comfort oriented CODE STATUS: DNR SYMPTOMS: * Dyspnea: Patient is significantly dyspneic and frequently requires oxygen via mask. He has difficulty speaking, partially due to residual effects of a stroke and partially due to dyspnea. He is refusing intubation and if he continues to decline would likely consider hospice. * Edema: Likely related to his grade 1 diastolic dysfunction, prolonged hospital course and multiple procedures. He has received multiple doses of Lasix, but no scheduled daily dose. He is refusing SCDs, which would likely help mobilize the fluid. * Weakness -had initially planned to go to [facility] but discharge was canceled secondary to severe dyspnea and pulmonary embolus. He will likely need rehabilitation once he is stabilized. SUMMARY This is a 76-year-old male with a complicated hospital course to include severe peripheral vascular disease, cerebrovascular accident with some hemorrhagic component, left femoropopliteal bypass and large saddle pulmonary embolus. He has multiple comorbidities and is at high risk for continued complications and decline. If he fails anticoagulation with further thromboembolic events, he would be hospice appropriate if goals were consistent. Palliative care will continue to follow the patient during hospital course as condition evolves, to assist patient/decision-maker with understanding of their medical conditions, weighing benefits/burdens of treatment options, for clarification of goals of treatment. Additionally will assist with any symptoms of palliative concern. . Time Spent Time Periods: 10:30-11:25 >50% Counseling/Coord of Care: Yes Thank you for the opportunity to participate in the care of Mr. Gallagher. Attestation To help prompt me to consider important information that might be impacting today's encounter and assessment, information from prior notes written by myself or my colleagues may have been "brought forward" into today's note. My signature on this note, however, is an attestation that I personally performed the exam, history, and/or decision-making noted today, and, unless otherwise indicated, the interactions with patient, family, and staff as well as the review of records all occurred today. I also attest that the listed assessment and stated plan reflect my best clinical judgment today based on the combination of historical information, prior notes, and today's exam/ interactions. When time spent is documented, it refers only to time spent today by the signer, or if indicated, combined time spent today by collaborating physician/nurse practitioner. . Joselin Balbuena Mar 24, 2017 3:14 pm
[2017-03-24] MEDS: MONTELUKAST SODIUM 10 MG TAB PO SCH (20:04)
[2017-03-24] MEDS: ATORVASTATIN 80 MG TAB PO SCH (20:04)
[2017-03-25] VITALS (17 sets, daily range): BP systolic 113–134; BP diastolic 63–90; PULSE 54–80; RESP 14–18; TEMP 97.2–97.8; O2SAT 91–98
[2017-03-25] MEDS: ARGATROBAN INJ 250 MG in SODIUM CHLOR 0.9% 250 ML INJ 250 ML IV PRN (02:30)
[2017-03-25] MEDS: CHLORHEXIDINE GLUCONATE 2 % 1 PACK (2 CLOTHS)(taper/protocol) TOPICAL SCH (04:00)
[2017-03-25] MEDS: methylPREDNISolone SOD SUCC 40 MG/1 ML VIAL IV PUSH SCH ×3 (05:43→22:57)
[2017-03-25] MEDS: POLYETHYLENE GLYCOL 17 GM PKG PO SCH (08:50)
[2017-03-25] MEDS: MAGNESIUM HYDROXIDE SUSP 30 ML CUP PO SCH ×2 (08:50→20:36)
[2017-03-25] MEDS: GABAPENTIN 300 MG CAP PO SCH ×2 (08:50→20:36)
[2017-03-25] MEDS: DULoxetine HCl DR 60 MG CAP PO SCH (08:50)
[2017-03-25] MEDS: FINASTERIDE 5 MG TAB PO SCH (08:50)
[2017-03-25] MEDS: DOCUSATE SODIUM 50 MG/SENNA 8.6 MG TAB PO SCH ×2 (08:51→20:36)
[2017-03-25] MEDS: AMIODARONE 200 MG TAB PO SCH (08:51)
[2017-03-25] MEDS: METOPROLOL TARTRATE 50 MG TAB PO SCH ×2 (08:51→20:36)
[2017-03-25] MEDS: MULTIVITAMIN TAB PO SCH (08:51)
[2017-03-25] MEDS: PANTOPRAZOLE SOD 40 MG DELAYED RELEASE TAB PO SCH (08:51)
[2017-03-25] MEDS: ASPIRIN 81 MG CHEW TAB CHEW SCH (08:51)
[2017-03-25] MEDS: LISINOPRIL 10 MG TAB PO SCH (08:51)
[2017-03-25] MEDS: FLUTICASONE 200 MCG/VILANTEROL 25 MCG INHALER INH SCH (08:55)
[2017-03-25] MEDS: SODIUM CHLORIDE 0.9% FLUSH 10 ML FLUSH IV FLUSH SCH ×2 (08:56→20:36)
--- NOTE | 2017-03-25 09:45 | HHI.FPPN ---
Subjective Remarks Patient seen and examined this morning by medical team. No acute events overnight per nursing staff. Vital signs remain WNL. Patient remains nonverbal, but does communicate by shaking his head. He indicates that he has no new problems. He denies any fevers, chills, SOB, chest pain, NVD, or calf tenderness. (Lv Ordaz MD R2) Objective Vitals Vital Signs Date Time Temp Pulse Resp B/P (MAP) Pulse Ox O2 Delivery O2 Flow Rate FiO2 03/25/17 08:00 72 15 113/63 (80) 03/25/17 07:26 98 Nasal Cannula 2.00 03/25/17 07:15 Nasal Cannula 3.00 03/25/17 06:00 73 03/25/17 04:00 71 03/25/17 04:00 97.2 71 14 126/78 (94) 92 03/25/17 02:00 69 03/25/17 00:00 97.8 68 14 122/73 (89) 91 03/25/17 00:00 68 03/24/17 22:00 68 03/24/17 20:24 90 Nasal Cannula 2.00 03/24/17 20:00 80 03/24/17 20:00 97.5 80 16 137/91 (106) 91 03/24/17 19:15 95 Nasal Cannula 3.00 03/24/17 18:00 82 03/24/17 17:00 73 15 130/81 (97) 94 03/24/17 17:00 73 03/24/17 16:22 96 Nasal Cannula 2.00 03/24/17 16:00 83 03/24/17 16:00 83 18 137/90 (106) 89 03/24/17 15:00 75 03/24/17 14:30 79 18 95 03/24/17 14:15 80 20 95 03/24/17 14:00 71 03/24/17 14:00 71 16 125/78 (94) 93 03/24/17 13:45 69 15 93 03/24/17 13:30 72 16 93 03/24/17 13:15 73 17 91 03/24/17 13:00 68 16 125/77 (93) 92 03/24/17 13:00 68 03/24/17 12:45 64 14 92 03/24/17 12:30 68 16 94 03/24/17 12:15 64 14 92 03/24/17 12:00 66 14 118/75 (89) 93 03/24/17 12:00 66 03/24/17 11:00 66 03/24/17 11:00 66 16 123/78 (93) 94 03/24/17 10:01 66 15 127/79 (95) 94 03/24/17 10:01 66 03/24/17 10:00 67 03/24/17 10:00 67 15 93 I/O 03/24/17 03/24/17 03/24/17 03/25/17 03/25/17 03/25/17 07:00 15:00 23:00 07:00 15:00 23:00 Intake Total 120 ml 420 ml 700 ml Output Total 250 ml 150 ml Balance -130 ml 270 ml 700 ml Intake Oral 120 ml 420 ml 450 ml IV Total 250 ml Output Urine Total 250 ml 150 ml # Voids 1 6 # Bowel Movements 1 2 1 (Lv Ordaz MD R2) Result Diagram: 03/24/17 0435 03/22/17 0845 Objective Remarks GENERAL: Elderly gentleman lying in bed sleeping upon entering the room in [facility]. RESPIRATORY: CTAB, currently on 3L nasal cannula with oxygen saturation of 96%. No increased work of breathing. CARDIOVASCULAR: RRR, no m/r/g. Radial and DP pulses 2+ and symmetric bilaterally. Brisk capillary refill. ABDOMEN: Soft, nondistended, nontender with BS in all 4 quadrants. No masses appreciated. MUSCULOSKELETAL: No edema appreciated. BL calf tenderness, negative Brenna's bilaterally. No swelling or skin changes. 2+ DP and PT pulses BL. LLE Femoropopliteal bypass incision sites, CDI. Pulses 2+ b/l. Sensation intact b/l. Moving toes and legs b/l. SKIN: Essentially clear with no significant rash or lesions. Adequate skin turgor. NEUROLOGICAL: Continued slurred speech, stable from prior exam. Otherwise CN 2- 12 intact. Patient does attempt to communicate verbally, however he primarily communicates through hand motions and yes/no questions. Sensation intact throughout. Procedures tPA therapy for thrombolysis of left SFA 03/08-03/09 (Lv Ordaz MD R2) A/P Assessment and Plan 76-year-old male s/p Fempop bypass surgery on 03/09 subsequently found to have acute right cerebellar infarct on 03/13, b/l DVTs on 03/20 s/p IVC filter placed 03/21, and saddle PE on 03/23. Patient transferred to [facility] on 03/23 for further monitoring. Patient is currently stable. Discharge Planning Pending clinical course Palliative care consulted to verify goals PT/OT/speech at rehab (Lv Ordaz MD R2) Attending Attestation Patient seen and examined this afternoon separate from the resident team at approximately 13:30 He continues to feel somewhat short of breath but denies overt chest pain or palpitations and denies any new or acute changes I have read the above resident note and agree with the assessment/plan as discussed with me I was involved in all medical decision making for this patient Acute change in his renal function with creatinine increasing to 1.5 We will obtain renal ultrasound with Doppler to evaluate for obstruction versus thrombosis We will give a 500 mL bolus and recheck BMP later this afternoon Gary Rosado MD (Gary Rosado MD) Problem List: (1) Saddle embolism of pulmonary artery ICD Codes: I26.92 - Saddle embolus of pulmonary artery without acute cor pulmonale Status: Acute Plan: -CTA remarkable for saddle embolus with clot seen in both the right and left central pulmonary arteries. -Neurology and Hematology consulted, patient immediately started on Argatroban anticoagulation secondary to possible HIT. -Currently on 3L NC with saturation in the mid 90s and RR of 16. -Neurochecks Q4H with vital signs -Echo 2D doppler ordered for concerns of heart strain, results unremarkable (2) Cerebral infarction due to unspecified occlusion or stenosis of right cerebellar artery ICD Codes: I63.541 - Cerebral infarction due to unspecified occlusion or stenosis of right cerebellar artery Status: Acute Plan: -Neurology consulted, recs appreciated -Recommend systemic full intensity anticoagulation in the setting of hypercoagulable state. Currently on Argatroban 250mg IV due to saddle embolus and afib. He does have approximately 15-20% chance of worsening intracranial hemorrhage on systemic anticoagulation. -Continue Aspirin, Effient discontinued -CT previously recommended 04/01/17, will discuss with neuro -Neurologically stable -Neurosurgery consulted, recs appreciated -CT head reviewed, nonoperative mgt -Palliative care consulted to assist with medical goals -Neurochecks q4h -Continue PT/OT/ST, patient encouraged to participate in therapy to assist with discharge planning Previous Workup: Patient with slurred speech on 03/[address] and MRI showing R cerebellar edema and infarction consistent with CVA. -Head CT: 3.5 x 3.6 cm low attenuation area in the right cerebellar hemisphere area most characteristic of edema which could be secondary to underlying mass or infarction. Second smaller focal peripheral area of decreased attenuation involving the right parietal occipital watershed region concerning for edema as well. Further evaluation with MRI recommended. -Brain MRI: Proximally 5cm infarct of the right cerebellar hemisphere with small punctate infarcts in the right occipital lobe and left parietal lobe. Remote lacunar infarcts of the right basal ganglia and cerebellum. -Head MRA: Patient within normal limits for age -Neck MRA: No significant stenosis in the carotid arteries. Left vertebral artery is dominant. -Neck CTA: Minimal calcific plaquing nonstenotic bilateral carotid bulbs and initial segment of the right internal carotid. -Repeat Brain MRI: no significant change in the appearance of large acute infarction involving the right cerebellum as well as the much smaller acute infarctions involving the right occipital lobe and left high parietal cortex. -Repeat head CT: Stable right cerebellar infarction, fourth ventricle open, no signs of hydrocephalus (3) Paroxysmal atrial fibrillation ICD Codes: I48.0 - Paroxysmal atrial fibrillation Status: Acute Plan: -Cardiology consulted, recs appreciated. -SEAN: atrial septal aneurysm and PFO. PFO closure not recommended. Otherwise , unremarkable. -Paroxysmal atrial fibrillation noted 03/20 -Continue metoprolol 50mg PO q12hr and Amiodarone 200mg PO daily. -Continue anticoagulation as above. (4) DVT (deep venous thrombosis) ICD Codes: I82.409 - Acute embolism and thrombosis of unspecified deep veins of unspecified lower extremity Status: Acute Plan: -LE US 03/20/17: Positive venous Doppler bilaterally above the knee on the R and below the knee on the L. -IR consulted, IVC filter placed 03/20/17, abdominal X-ray 03/23 demonstrated stable position of IVC filter over L1 and L2 -Anticoagulation as above. (5) Hypercoagulopathy ICD Codes: D68.59 - Other primary thrombophilia Status: Acute Plan: -Hematology consulted, appreciated recommendations -Hypercoagulable workup pending -Protein C, AT III high, however not clinically significant. -Antiphospholipid IgM antibody. -Factor V Leiden mutation negative -Patient positive for Hep-Induced Plt AB Deandra -Heparin Induced Platelet Antibody positive concerning for HIT -SHAUN pending to confirm HIT -Avoid heparin products due to possible delayed onset HIT (6) Pneumonia ICD Codes: J18.9 - Pneumonia, unspecified organism Plan: CXR 03/17 demonstrated consolidation with infrahilar region on the right, possible aspiration Pneumonia -Pulmonology previously consulted, appreciate recommendations -Continue Methylprednisolone 80mg IV push q8hr Discontinued Vancomycin, pharmacy consulted for dosing (03/17-03/22) Discontinued Zosyn 4.5 GM IV q6h (03/17-03/22) (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 -Thoracic aneurysm aneurysm will be managed medically and with close follow- up for imaging -Goal systolic blood pressure of less than 120 (9) Superficial femoral artery occlusion ICD Codes: I70.209 - Unspecified atherosclerosis of kashia arteries of extremities, unspecified extremity Status: Resolved Plan: -Patient status post left femoropopliteal bypass femoral endarterectomy popliteal endarterectomy and patch on 03/09 -Patient w/ hx of PAD (10) HTN (hypertension) ICD Codes: I10 - Essential (primary) hypertension Status: Chronic Plan: -Continue lisinopril 10 mg daily, metoprolol tartrate 50 mg PO BID -Vasotec 1.25 mg IV when necessary for systolic blood pressure greater than 160 , diastolic blood pressure greater than 90 -Goal systolic blood pressure of less than 120 due to thoracic aortic aneurysm (11) CAD (coronary artery disease) ICD Codes: I25.10 - Atherosclerotic heart disease of kashia coronary artery without angina pectoris Status: Chronic Plan: -Patient with known CAD, status post coronary stents placed in 2007 -Continue home atorvastatin 80 mg at night, ASA 81 mg daily (12) BPH (benign prostatic hyperplasia) ICD Codes: N40.0 - Benign prostatic hyperplasia without lower urinary tract symptoms Plan: Continue home finasteride 5 mg by mouth daily (13) Constipation ICD Codes: K59.00 - Constipation, unspecified Status: Acute Plan: -Continue constipation protocol (14) FEN Plan: Diet: Heart healthy diet with nectar thickened liquids Oral fluids only Replete electrolytes as needed Neurochecks q4h Zofran as needed for nausea Tylenol as needed for fever Protonix for GI prophylaxis (Lv Ordaz MD R2) Problem Qualifiers (1) DVT (deep venous thrombosis): (2) Pneumonia: (3) HTN (hypertension): Qualified Codes: I10 - Essential (primary) hypertension (4) CAD (coronary artery disease): Qualified Codes: I25.10 - Atherosclerotic heart disease of kashia coronary artery without angina pectoris (5) Constipation: Qualified Codes: K59.00 - Constipation, unspecified Lv Ordaz MD R2 Mar 25, 2017 09:45 Gary Rosado MD Mar 25, 2017 14:01
[2017-03-25 11:02] LABS: HEMATOCRIT 46.1 % (39.0-51.0); MEAN CORPUSCULAR HEMOGLOBIN 28.2 PG (27.0-34.0); MEAN CORPUSCULAR HGB CONC 32.5 % (32.0-36.0); MEAN PLATELET VOLUME 9.2 FL (7.0-11.0); PLATELET COUNT 123 TH/MM3 (150-450); RED CELL DISTRIBUTION WIDTH 15.2 % (11.6-17.2); WHITE BLOOD COUNT 22.1 TH/MM3 (4.0-11.0)
[2017-03-25 11:03] LABS: AUTOMATED NEUTROPHIL # 21.3 TH/MM3 (1.8-7.7); BASOPHIL % 0.1 % (0.0-2.0); LYMPHOCYTE # 0.2 TH/MM3 (1.0-4.8); MONO % 2.6 % (0.0-8.0); MONOCYTE # 0.6 TH/MM3 (0-0.9); NEUT % 96.3 % (16.0-70.0)
[2017-03-25 11:18] LABS: BICARBONATE 20.7 MEQ/L (21.0-32.0); CALCIUM 8.5 MG/DL (8.5-10.1); CREATININE 1.5 MG/DL (0.60-1.30)
[2017-03-25] MEDS ORDERED: SODIUM CHLORID 0.9% 500 ML INJ 500 ML IV ONE (12:15)
--- NOTE | 2017-03-25 13:21 | RADRPT ---
EXAM DATE/TIME: 03/25/2017 12:29 [facility] COMPARISON: CT PULMONARY ANGIOGRAM, March 23, 2017, 12:36. INDICATIONS : Increased BUN/creatinine. MEDICAL HISTORY : Arthritis. Myocardial infarction. Hypercholesterolemia. Coronary artery disease. HTN. Asthma. Dyspnea . GERD. DVT. SURGICAL HISTORY : Coronary artery stent. Cholecystectomy. Herniated disc surgery. Disc replacement. ENCOUNTER: Initial ACUITY: 1 day PAIN SCORE: 0/10 LOCATION: Bilateral flank MEASUREMENTS: RIGHT KIDNEY: 13.1 x 5.8 x 6.6 cm LEFT KIDNEY: 13.9 x 6.5 x 6.1 cm FINDINGS: Bilateral kidneys appear to be enlarged greater than 13 cm in vertical height. There are bilateral re nal cysts which are large right kidney midpole 4.5 cm, upper pole 7.5 cm in size and lower pole 4.7 c m in size. Left kidney upper pole cyst 7.6 cm in size in lower pole cyst 6.3 cm in size. Doppler appe ars normal and there is no evidence of hydronephrosis . Cortex is visualized appears normal width wit h well-maintained cortical medullary junction CONCLUSION: Bilateral kidneys appear enlarged which is secondary to multiple bilateral large renal cysts. There i s no evidence of hydronephrosis or obstructive uropathy. Lakhwinder Adams MD on March 25, 2017 at 13:14 Board Certified Radiologist. This report was verified electronically.
--- NOTE | 2017-03-25 13:50 | PD.ONC.PN ---
Subjective Subjective Remarks Afebrile Discussed with patient that he does not have a heparin allergy Denies bleeding Shortness of breath improved Objective Data Date Time Temp Pulse Resp B/P (MAP) Pulse Ox O2 Delivery O2 Flow Rate FiO2 03/25/17 13:00 54 14 134/75 (94) 03/25/17 13:00 54 03/25/17 12:00 59 14 118/78 (91) 03/25/17 12:00 59 03/25/17 11:00 58 03/25/17 10:00 64 03/25/17 09:00 80 03/25/17 08:00 72 03/25/17 08:00 72 15 113/63 (80) 03/25/17 07:26 98 Nasal Cannula 2.00 03/25/17 07:15 Nasal Cannula 3.00 03/25/17 06:00 73 03/25/17 04:00 71 03/25/17 04:00 97.2 71 14 126/78 (94) 92 03/25/17 02:00 69 03/25/17 00:00 97.8 68 14 122/73 (89) 91 03/25/17 00:00 68 03/24/17 22:00 68 03/24/17 20:24 90 Nasal Cannula 2.00 03/24/17 20:00 80 03/24/17 20:00 97.5 80 16 137/91 (106) 91 03/24/17 19:15 95 Nasal Cannula 3.00 03/24/17 18:00 82 03/24/17 17:00 73 15 130/81 (97) 94 03/24/17 17:00 73 03/24/17 16:22 96 Nasal Cannula 2.00 03/24/17 16:00 83 03/24/17 16:00 83 18 137/90 (106) 89 03/24/17 15:00 75 03/24/17 14:30 79 18 95 03/24/17 14:15 80 20 95 03/24/17 14:00 71 03/24/17 14:00 71 16 125/78 (94) 93 03/25/17 03/25/17 03/25/17 07:00 15:00 23:00 Intake Total 700 ml Balance 700 ml Result Diagram: 03/25/17 1045 03/25/17 1045 Laboratory Results Laboratory Tests Test 03/25/17 07:06 03/25/17 10:45 Activated Partial Thromboplast Time 58.8 SEC White Blood Count 22.1 TH/MM3 Red Blood Count 5.30 MIL/MM3 Hemoglobin 15.0 GM/DL Hematocrit 46.1 % Mean Corpuscular Volume 87.0 FL Mean Corpuscular Hemoglobin 28.2 PG Mean Corpuscular Hemoglobin Concent 32.5 % Red Cell Distribution Width 15.2 % Platelet Count 123 TH/MM3 Mean Platelet Volume 9.2 FL Neutrophils (%) (Auto) 96.3 % Lymphocytes (%) (Auto) 1.0 % Monocytes (%) (Auto) 2.6 % Eosinophils (%) (Auto) 0.0 % Basophils (%) (Auto) 0.1 % Neutrophils # (Auto) 21.3 TH/MM3 Lymphocytes # (Auto) 0.2 TH/MM3 Monocytes # (Auto) 0.6 TH/MM3 Eosinophils # (Auto) 0.0 TH/MM3 Basophils # (Auto) 0.0 TH/MM3 CBC Comment DIFF FINAL Differential Comment Blood Urea Nitrogen 89 MG/DL Creatinine 1.50 MG/DL Random Glucose 128 MG/DL Calcium Level 8.5 MG/DL Sodium Level 136 MEQ/L Potassium Level 5.1 MEQ/L Chloride Level 106 MEQ/L Carbon Dioxide Level 20.7 MEQ/L Anion Gap 9 MEQ/L Estimat Glomerular Filtration Rate 45 ML/MIN Imaging Studies Last 24 hours Impressions Renal Ultrasound 03/25/17 1205 Signed Impressions: Service Date/Time: Saturday, March 25, 2017 12:29 - CONCLUSION: Bilateral kidneys appear enlarged which is secondary to multiple bilateral large renal cysts. There is no evidence of hydronephrosis or obstructive uropathy. Lakhwinder Adams MD Administered Medications Medications (Trade) Dose Ordered Sig/Lizbeth Route PRN Reason Start Time Stop Time Status Last Admin Dose Admin Sodium Chloride (NS Flush) 2 ml UNSCH PRN IV FLUSH FLUSH AFTER USING IV ACCESS 03/05/17 22:00 03/23/17 05:34 Sodium Chloride (NS Flush) 2 ml BID IV FLUSH 03/06/17 09:00 03/25/17 08:56 Atorvastatin Calcium (Lipitor) 80 mg HS PO 03/05/17 22:15 03/24/17 20:04 Finasteride (Proscar) 5 mg DAILY PO 03/06/17 09:00 03/25/17 08:50 Fluticasone/ Vilanterol (Breo Ellipta 200-25 Inh) 1 puff DAILY INH 03/06/17 09:00 03/25/17 08:55 Gabapentin (Neurontin) 300 mg BID PO 03/05/17 22:15 03/25/17 08:50 Lisinopril (Prinivil) 10 mg DAILY PO 03/06/17 09:00 03/25/17 08:51 Polyethylene Glycol (Miralax) 17 gm DAILY PO 03/06/17 09:00 03/25/17 08:50 Prasugrel (Effient) 10 mg DAILY PO 03/06/17 09:00 Future Hold 03/12/17 08:51 Pantoprazole Sodium (Protonix) 40 mg DAILY PO 03/06/17 09:00 03/25/17 08:51 Multivitamins (Theragran) 1 tab DAILY PO 03/06/17 09:00 03/25/17 08:51 Albuterol Sulfate (Albuterol Neb) 2.5 mg Q4HR WHILE AWAKE NEB PRN NEB SHORTNESS OF BREATH 03/05/17 22:15 03/22/17 13:46 Ondansetron HCl (Zofran Inj) 4 mg Q6HR PRN IV PUSH NAUSEA OR VOMITING 03/05/17 22:15 03/17/17 20:32 Acetaminophen (Tylenol) 325 mg Q4H PRN PO FEVER 03/05/17 22:15 03/11/17 00:55 Metoprolol Tartrate (Lopressor) 50 mg Q12HR PO 03/06/17 10:00 03/25/17 08:51 Montelukast Sodium (Singulair) 10 mg HS PO 03/06/17 21:00 03/24/17 20:04 Morphine Sulfate (Morphine Inj) 4 mg Q3H PRN IV PUSH 6-10 03/09/17 16:30 03/13/17 09:57 Oxycodone/ Acetaminophen (Percocet 5-325 Mg) 1 tab Q4H PRN PO 3-5 03/09/17 16:30 03/22/17 00:43 Senna/Docusate Sodium (Arleth-Colace) 1 tab BID PO 03/14/17 12:30 03/25/17 08:51 Lactulose (Lactulose Liq) 30 ml DAILY PRN PO SEVERE CONSITIPATION 03/14/17 12:30 03/14/17 15:23 Aspirin (Aspirin Chew) 162 mg DAILY CHEW 03/19/17 09:00 03/25/17 08:51 Magnesium Hydroxide (Milk Of Magnesia Liq) 30 ml Q12HR PO 03/19/17 10:07 03/25/17 08:50 Duloxetine HCl (Cymbalta Dr) 60 mg DAILY PO 03/23/17 09:00 03/25/17 08:50 Amiodarone HCl (Cordarone) 200 mg DAILY PO 03/23/17 09:00 03/25/17 08:51 Argatroban 250 mg/ Sodium Chloride 252.5 ml @ 13.06 mls/ hr TITRATE PRN IV aPTT < 50 03/23/17 13:15 03/25/17 02:30 Miscellaneous Information Patient in critical care unit? Ass... Q361D .XX 03/23/17 21:15 03/23/17 21:15 Chlorhexidine Gluconate (Chlorhexidine 2% Cloth) 3 pack DAILY@04 TOPICAL 03/24/17 04:00 03/28/17 04:01 03/24/17 04:00 Objective Remarks GENERAL: Elderly male resting in bed in no obvious distress SKIN: Warm and dry. HEAD: Normocephalic. EYES: No injection or drainage. NECK: Supple, trachea midline. CARDIOVASCULAR: Regular rate and rhythm RESPIRATORY: Scattered rhonchi anteriorly. GASTROINTESTINAL: Abdomen soft, non-tender, nondistended. EXTREMITIES: No cyanosis. 1-2+ edema bilateral lower extremities NEUROLOGICAL: Nods head yes and no appropriately to questions. Nonverbal Assessment/Plan Assessment 76y/o male with h/o PAD admitted on 03/05/17 with dyspnea. History: --evaluated by vascular surgery for worsening PVD and superficial femoral artery occlusion --s/p tpa lysis and then femoral-popliteal bypass. --then developed right cerebellar ischemic infarct with punctate infarcts of the right occipital and left parietal lobes. --bc of the minimal degree of ICH, ac was placed on hold --LE U/S showed DVT bilaterally --had IVC filter placement on 03/21/17 Plan 1. arterial thrombosis s/p tpa lysis and fem-pop bypass by surgery team + bilateral lower extremity venous thromboembolism + extensive saddle pulmonary emboli, with addition diagnosis of CVA with hemorrhagic component. 2. SHAUN noted to be negative 3. Continue argatroban. 4. Monitor CBC. Monitor for bleeding. Attending Statement The exam, history, and the medical decision-making described in the above note were completed with the assistance of the mid-level provider. I reviewed and agree with the findings presented. I attest that I had a [id number] encounter with the patient on the same day, and personally performed and documented my assessment and findings in the medical record. Denies headache, no report of bleeding. Platelet stable. Tolerating argatroban well. Continue argatroban for now. No new pulmonary symptoms. Discussed with pt's . Yolis Blanco Mar 25, 2017 13:50 Ilia Kapoor MD Mar 25, 2017 14:00
[2017-03-25] MEDS: ATORVASTATIN 80 MG TAB PO SCH (20:36)
[2017-03-25] MEDS: MONTELUKAST SODIUM 10 MG TAB PO SCH (20:36)
[2017-03-26] VITALS (9 sets, daily range): BP systolic 112–126; BP diastolic 72–89; PULSE 53–82; RESP 16–18; TEMP 97.3–98; O2SAT 92–95
[2017-03-26 00:35] LABS: BICARBONATE 23.5 MEQ/L (21.0-32.0); CALCIUM 8.1 MG/DL (8.5-10.1); CREATININE 1.45 MG/DL (0.60-1.30)
[2017-03-26 00:38] LABS: CARCINOEMBRYONIC ANTIGEN 5.3 NG/ML (0.2-5.0)
[2017-03-26 01:15] LABS: CA 19-9 171.1 U/ML (0.0-35.0)
[2017-03-26] MEDS: CHLORHEXIDINE GLUCONATE 2 % 1 PACK (2 CLOTHS)(taper/protocol) TOPICAL SCH (03:42)
[2017-03-26] MEDS: methylPREDNISolone SOD SUCC 40 MG/1 ML VIAL IV PUSH SCH ×2 (06:18→14:05)
[2017-03-26] MEDS: SODIUM CHLORIDE 0.9% FLUSH 10 ML FLUSH IV FLUSH SCH ×2 (09:00→21:13)
--- NOTE | 2017-03-26 09:07 | PD.ONC.PN ---
Subjective Subjective Remarks Afebrile overnight Pt resting in bed in no obvious distress Denies headache Denies shortness of breath Objective Data Date Time Temp Pulse Resp B/P (MAP) Pulse Ox O2 Delivery O2 Flow Rate FiO2 03/26/17 04:00 97.9 53 16 125/83 (97) 95 03/26/17 04:00 Nasal Cannula 3.00 03/26/17 03:47 68 03/26/17 00:00 97.3 57 16 122/85 (97) 95 03/26/17 00:00 Nasal Cannula 3.00 03/25/17 23:41 59 03/25/17 20:00 Nasal Cannula 3.00 03/25/17 20:00 97.2 64 16 129/77 (94) 95 03/25/17 19:43 69 03/25/17 18:00 97.8 69 18 123/90 (101) 96 03/25/17 16:00 71 03/25/17 16:00 71 15 123/81 (95) 03/25/17 14:00 66 03/25/17 13:00 54 14 134/75 (94) 03/25/17 13:00 54 03/25/17 12:00 59 14 118/78 (91) 03/25/17 12:00 59 03/25/17 11:00 58 03/25/17 10:00 64 Result Diagram: 03/25/17 1045 03/25/17 2339 Laboratory Results Laboratory Tests Test 03/25/17 10:45 03/25/17 23:39 White Blood Count 22.1 TH/MM3 Red Blood Count 5.30 MIL/MM3 Hemoglobin 15.0 GM/DL Hematocrit 46.1 % Mean Corpuscular Volume 87.0 FL Mean Corpuscular Hemoglobin 28.2 PG Mean Corpuscular Hemoglobin Concent 32.5 % Red Cell Distribution Width 15.2 % Platelet Count 123 TH/MM3 Mean Platelet Volume 9.2 FL Neutrophils (%) (Auto) 96.3 % Lymphocytes (%) (Auto) 1.0 % Monocytes (%) (Auto) 2.6 % Eosinophils (%) (Auto) 0.0 % Basophils (%) (Auto) 0.1 % Neutrophils # (Auto) 21.3 TH/MM3 Lymphocytes # (Auto) 0.2 TH/MM3 Monocytes # (Auto) 0.6 TH/MM3 Eosinophils # (Auto) 0.0 TH/MM3 Basophils # (Auto) 0.0 TH/MM3 CBC Comment DIFF FINAL Differential Comment Blood Urea Nitrogen 89 MG/DL 87 MG/DL Creatinine 1.50 MG/DL 1.45 MG/DL Random Glucose 128 MG/DL 107 MG/DL Calcium Level 8.5 MG/DL 8.1 MG/DL Sodium Level 136 MEQ/L 136 MEQ/L Potassium Level 5.1 MEQ/L 5.1 MEQ/L Chloride Level 106 MEQ/L 104 MEQ/L Carbon Dioxide Level 20.7 MEQ/L 23.5 MEQ/L Anion Gap 9 MEQ/L 9 MEQ/L Estimat Glomerular Filtration Rate 45 ML/MIN 47 ML/MIN Tumor Marker Alpha Fetoprotein 1.2 NG/ML Carcinoembryonic Antigen 5.3 NG/ML CA 19-9 Antigen 171.1 U/ML CA 125 Antigen 20.0 U/ML Prostate Specific Antigen 3.16 NG/ML Imaging Studies Last 24 hours Impressions Renal Ultrasound 03/25/17 1205 Signed Impressions: Service Date/Time: Saturday, March 25, 2017 12:29 - CONCLUSION: Bilateral kidneys appear enlarged which is secondary to multiple bilateral large renal cysts. There is no evidence of hydronephrosis or obstructive uropathy. Lakhwinder Adams MD Administered Medications Medications (Trade) Dose Ordered Sig/Lizbeth Route PRN Reason Start Time Stop Time Status Last Admin Dose Admin Sodium Chloride (NS Flush) 2 ml UNSCH PRN IV FLUSH FLUSH AFTER USING IV ACCESS 03/05/17 22:00 03/23/17 05:34 Sodium Chloride (NS Flush) 2 ml BID IV FLUSH 03/06/17 09:00 03/25/17 20:36 Atorvastatin Calcium (Lipitor) 80 mg HS PO 03/05/17 22:15 03/25/17 20:36 Finasteride (Proscar) 5 mg DAILY PO 03/06/17 09:00 03/25/17 08:50 Fluticasone/ Vilanterol (Breo Ellipta 200-25 Inh) 1 puff DAILY INH 03/06/17 09:00 03/25/17 08:55 Gabapentin (Neurontin) 300 mg BID PO 03/05/17 22:15 03/25/17 20:36 Lisinopril (Prinivil) 10 mg DAILY PO 03/06/17 09:00 03/25/17 08:51 Polyethylene Glycol (Miralax) 17 gm DAILY PO 03/06/17 09:00 03/25/17 08:50 Prasugrel (Effient) 10 mg DAILY PO 03/06/17 09:00 Future Hold 03/12/17 08:51 Pantoprazole Sodium (Protonix) 40 mg DAILY PO 03/06/17 09:00 03/25/17 08:51 Multivitamins (Theragran) 1 tab DAILY PO 03/06/17 09:00 03/25/17 08:51 Albuterol Sulfate (Albuterol Neb) 2.5 mg Q4HR WHILE AWAKE NEB PRN NEB SHORTNESS OF BREATH 03/05/17 22:15 03/22/17 13:46 Ondansetron HCl (Zofran Inj) 4 mg Q6HR PRN IV PUSH NAUSEA OR VOMITING 03/05/17 22:15 03/17/17 20:32 Acetaminophen (Tylenol) 325 mg Q4H PRN PO FEVER 03/05/17 22:15 03/11/17 00:55 Metoprolol Tartrate (Lopressor) 50 mg Q12HR PO 03/06/17 10:00 03/25/17 20:36 Montelukast Sodium (Singulair) 10 mg HS PO 03/06/17 21:00 03/25/17 20:36 Morphine Sulfate (Morphine Inj) 4 mg Q3H PRN IV PUSH 6-10 03/09/17 16:30 03/13/17 09:57 Oxycodone/ Acetaminophen (Percocet 5-325 Mg) 1 tab Q4H PRN PO 3-5 03/09/17 16:30 03/22/17 00:43 Senna/Docusate Sodium (Arleth-Colace) 1 tab BID PO 03/14/17 12:30 03/25/17 20:36 Lactulose (Lactulose Liq) 30 ml DAILY PRN PO SEVERE CONSITIPATION 03/14/17 12:30 03/14/17 15:23 Aspirin (Aspirin Chew) 162 mg DAILY CHEW 03/19/17 09:00 03/25/17 08:51 Magnesium Hydroxide (Milk Of Magnesia Liq) 30 ml Q12HR PO 03/19/17 10:07 03/25/17 20:36 Duloxetine HCl (Cymbalta Dr) 60 mg DAILY PO 03/23/17 09:00 03/25/17 08:50 Amiodarone HCl (Cordarone) 200 mg DAILY PO 03/23/17 09:00 03/25/17 08:51 Argatroban 250 mg/ Sodium Chloride 252.5 ml @ 13.06 mls/ hr TITRATE PRN IV aPTT < 50 03/23/17 13:15 03/25/17 02:30 Miscellaneous Information Patient in critical care unit? Ass... Q361D .XX 03/23/17 21:15 03/23/17 21:15 Chlorhexidine Gluconate (Chlorhexidine 2% Cloth) 3 pack DAILY@04 TOPICAL 03/24/17 04:00 03/28/17 04:01 03/24/17 04:00 Methylprednisolone Sodium Succinate (SoluMEDROL INJ) 40 mg Q8HR IV PUSH 03/25/17 14:00 03/26/17 06:18 Objective Remarks GENERAL: Elderly male resting in bed in no obvious distress SKIN: Warm and dry. HEAD: Normocephalic. EYES: No injection or drainage. NECK: Supple, trachea midline. CARDIOVASCULAR: Regular rate and rhythm RESPIRATORY: Scattered rhonchi anteriorly. GASTROINTESTINAL: Abdomen soft, non-tender, nondistended. EXTREMITIES: No cyanosis. 1-2+ edema bilateral lower extremities NEUROLOGICAL: Nods head yes and no appropriately to questions. Nonverbal Assessment/Plan Assessment 76y/o male with h/o PAD admitted on 03/05/17 with dyspnea. History: --evaluated by vascular surgery for worsening PVD and superficial femoral artery occlusion --s/p tpa lysis and then femoral-popliteal bypass. --then developed right cerebellar ischemic infarct with punctate infarcts of the right occipital and left parietal lobes. --bc of the minimal degree of ICH, ac was placed on hold --LE U/S showed DVT bilaterally --had IVC filter placement on 03/21/17 Plan 1. Switch to oral anticoagulant when cleared by neuro 2. Continue argatroban for now. 3. Await results of CBC today. 4. Monitor for bleeding. Attending Statement The exam, history, and the medical decision-making described in the above note were completed with the assistance of the mid-level provider. I reviewed and agree with the findings presented. I attest that I had a [id number] encounter with the patient on the same day, and personally performed and documented my assessment and findings in the medical record. Out of ICU. No headache. No bleeding. No new neurologic deficit. CBC pending, continue argatroban and bridge to oral anticoagulant when clear by neurology. Yolis Blanco Mar 26, 2017 09:07 Ilia Kapoor MD Mar 26, 2017 12:17
[2017-03-26] MEDS: POLYETHYLENE GLYCOL 17 GM PKG PO SCH (09:40)
[2017-03-26] MEDS: MAGNESIUM HYDROXIDE SUSP 30 ML CUP PO SCH (09:41)
[2017-03-26] MEDS: MULTIVITAMIN TAB PO SCH (09:41)
[2017-03-26] MEDS: LISINOPRIL 10 MG TAB PO SCH (09:41)
[2017-03-26] MEDS: DOCUSATE SODIUM 50 MG/SENNA 8.6 MG TAB PO SCH (09:41)
[2017-03-26] MEDS: ASPIRIN 81 MG CHEW TAB CHEW SCH (09:41)
[2017-03-26] MEDS: DULoxetine HCl DR 60 MG CAP PO SCH (09:41)
[2017-03-26] MEDS: GABAPENTIN 300 MG CAP PO SCH ×2 (09:41→21:13)
[2017-03-26] MEDS: FINASTERIDE 5 MG TAB PO SCH (09:42)
[2017-03-26] MEDS: METOPROLOL TARTRATE 50 MG TAB PO SCH ×2 (09:42→21:13)
[2017-03-26] MEDS: AMIODARONE 200 MG TAB PO SCH (09:42)
[2017-03-26] MEDS: PANTOPRAZOLE SOD 40 MG DELAYED RELEASE TAB PO SCH (09:42)
[2017-03-26] MEDS: FLUTICASONE 200 MCG/VILANTEROL 25 MCG INHALER INH SCH (09:44)
--- NOTE | 2017-03-26 10:50 | HHI.FPPN ---
Subjective Remarks No acute events overnight. Pt lying in bed this AM, on 2.5L NC. Nurse reports that he has had multiple BM, will decrease his bowel regimen. 3 BM recorded yesterday, 2 BM this morning. Pt endorses SOB and back pain, unchanged from prior. He denies CP, abdominal pain, and N/V. Objective Vitals Vital Signs Date Time Temp Pulse Resp B/P (MAP) Pulse Ox O2 Delivery O2 Flow Rate FiO2 03/26/17 08:00 97.7 72 18 126/89 (101) 93 03/26/17 08:00 78 03/26/17 07:15 Nasal Cannula 3.00 03/26/17 04:00 97.9 53 16 125/83 (97) 95 03/26/17 04:00 Nasal Cannula 3.00 03/26/17 03:47 68 03/26/17 00:00 97.3 57 16 122/85 (97) 95 03/26/17 00:00 Nasal Cannula 3.00 03/25/17 23:41 59 03/25/17 20:00 Nasal Cannula 3.00 03/25/17 20:00 97.2 64 16 129/77 (94) 95 03/25/17 19:43 69 03/25/17 18:00 97.8 69 18 123/90 (101) 96 03/25/17 16:00 71 03/25/17 16:00 71 15 123/81 (95) 03/25/17 14:00 66 03/25/17 13:00 54 14 134/75 (94) 03/25/17 13:00 54 03/25/17 12:00 59 14 118/78 (91) 03/25/17 12:00 59 03/25/17 11:00 58 I/O 03/25/17 03/25/17 03/25/17 03/26/17 03/26/17 03/26/17 07:00 15:00 23:00 07:00 15:00 23:00 Intake Total 700 ml Balance 700 ml Intake Oral 450 ml IV Total 250 ml # Voids 6 3 # Bowel Movements 1 2 Result Diagram: 03/25/17 1045 03/25/17 3825 Objective Remarks GENERAL: Elderly gentleman lying in bed sleeping upon entering the room in NAD. RESPIRATORY: CTAB, currently on 3L nasal cannula with oxygen saturation of 96%. No increased work of breathing. CARDIOVASCULAR: RRR, no m/r/g. Radial and DP pulses 2+ and symmetric bilaterally. Brisk capillary refill. ABDOMEN: Soft, nondistended, nontender with BS in all 4 quadrants. No masses appreciated. MUSCULOSKELETAL: No edema appreciated. BL calf tenderness, negative Brenna's bilaterally. No swelling or skin changes. 2+ DP and PT pulses BL. LLE Femoropopliteal bypass incision sites, CDI. Pulses 2+ b/l. Sensation intact b/l. Moving toes and legs b/l. SKIN: Essentially clear with no significant rash or lesions. Adequate skin turgor. NEUROLOGICAL: Continued slurred speech, stable from prior exam. Otherwise CN 2- 12 intact. Patient does attempt to communicate verbally, however he primarily communicates through hand motions and yes/no questions. Sensation intact throughout. Procedures tPA therapy for thrombolysis of left SFA 03/08-03/09 A/P Assessment and Plan 76-year-old male s/p Fempop bypass surgery on 03/09 subsequently found to have acute right cerebellar infarct on 03/13, b/l DVTs on 03/20 s/p IVC filter placed 03/21, and saddle PE on 03/23. Patient transferred to [facility] on 03/23 for further monitoring. Patient is currently stable. Discharge Planning Pending clinical course Palliative care consulted to verify goals PT/OT/speech at rehab Problem List: (1) Hypercoagulopathy ICD Codes: D68.59 - Other primary thrombophilia Status: Acute Plan: Tumor markers ordered for suspected metastasis AFP and CA 125wnl CA 19-9 elevated at 171.1 and CEA elevated at 5.3 Spoke with radiologist, unable to visualize pancreas on previous imaging, CT Abd /pelvis w/o contrast pending, will further consider non-contrast MRI based on abdominal CT -Hematology consulted, appreciated recommendations -Continue on Argatroban -Hypercoagulable workup pending -Protein C, AT III high, however not clinically significant. -Antiphospholipid IgM antibody. 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 -Neurology and Hematology consulted, continue on Argatroban anticoagulation -Currently on 3L NC with saturation in the mid 90s. 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 Currently on Argatroban 250mg IV due to saddle embolus and afib. He does have approximately 15-20% chance of worsening intracranial hemorrhage on systemic anticoagulation. -Continue Aspirin, Effient discontinued -CT previously recommended 04/01/17 -Neurologically stable -Neurosurgery consulted, recs appreciated -CT head reviewed, nonoperative mgt -Palliative care consulted to assist with medical goals -Neurochecks q4h -Continue PT/OT/ST, patient encouraged to participate in therapy to assist with discharge planning Previous Workup: Patient with slurred speech on 03/[address] and MRI showing R cerebellar edema and infarction consistent with CVA. -Head CT: 3.5 x 3.6 cm low attenuation area in the right cerebellar hemisphere area most characteristic of edema which could be secondary to underlying mass or infarction. Second smaller focal peripheral area of decreased attenuation involving the right parietal occipital watershed region concerning for edema as well. Further evaluation with MRI recommended. -Brain MRI: Proximally 5cm infarct of the right cerebellar hemisphere with small punctate infarcts in the right occipital lobe and left parietal lobe. Remote lacunar infarcts of the right basal ganglia and cerebellum. -Head MRA: Patient within normal limits for age -Neck MRA: No significant stenosis in the carotid arteries. Left vertebral artery is dominant. -Neck CTA: Minimal calcific plaquing nonstenotic bilateral carotid bulbs and initial segment of the right internal carotid. -Repeat Brain MRI: no significant change in the appearance of large acute infarction involving the right cerebellum as well as the much smaller acute infarctions involving the right occipital lobe and left high parietal cortex. -Repeat head CT: Stable right cerebellar infarction, fourth ventricle open, no signs of hydrocephalus (4) Paroxysmal atrial fibrillation ICD Codes: I48.0 - Paroxysmal atrial fibrillation Status: Acute Plan: -Cardiology consulted, recs appreciated. -SEAN: atrial septal aneurysm and PFO. PFO closure not recommended. Otherwise , unremarkable. -Paroxysmal atrial fibrillation noted 03/20 -Continue metoprolol 50mg PO q12hr and Amiodarone 200mg PO daily. -Continue anticoagulation as above. (5) DVT (deep venous thrombosis) ICD Codes: I82.409 - Acute embolism and thrombosis of unspecified deep veins of unspecified lower extremity Status: Acute Plan: -LE US 03/20/17: Positive venous Doppler bilaterally above the knee on the R and below the knee on the L. -IR consulted, IVC filter placed 03/20/17, abdominal X-ray 03/23 demonstrated stable position of IVC filter over L1 and L2 -Anticoagulation as above. 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 -Thoracic aneurysm aneurysm will be managed medically and with close follow- up for imaging -Goal systolic blood pressure of less than 120 (9) Superficial femoral artery occlusion ICD Codes: I70.209 - Unspecified atherosclerosis of [place] arteries of extremities, unspecified extremity Status: Resolved Plan: -Patient status post left femoropopliteal bypass femoral endarterectomy popliteal endarterectomy and patch on 03/09 -Patient w/ hx of PAD (10) HTN (hypertension) ICD Codes: I10 - Essential (primary) hypertension Status: Chronic Plan: -Continue lisinopril 10 mg daily, metoprolol tartrate 50 mg PO BID -Vasotec 1.25 mg IV when necessary for systolic blood pressure greater than 160 , diastolic blood pressure greater than 90 -Goal systolic blood pressure of less than 120 due to thoracic aortic aneurysm (11) CAD (coronary artery disease) ICD Codes: I25.10 - Atherosclerotic heart disease of [place] coronary artery without angina pectoris Status: Chronic Plan: -Patient with known CAD, status post coronary stents placed in 2007 -Continue home atorvastatin 80 mg at night, ASA 81 mg daily (12) BPH (benign prostatic hyperplasia) ICD Codes: N40.0 - Benign prostatic hyperplasia without lower urinary tract symptoms Plan: Continue home finasteride 5 mg by mouth daily (13) Constipation ICD Codes: K59.00 - Constipation, unspecified Status: Acute Plan: -Continue constipation protocol (14) FEN Plan: Diet: Heart healthy diet with nectar thickened liquids Oral fluids only Replete electrolytes as needed Neurochecks q4h Zofran as needed for nausea Tylenol as needed for fever Protonix for GI prophylaxis Problem Qualifiers (1) DVT (deep venous thrombosis): (2) Pneumonia: (3) HTN (hypertension): Qualified Codes: I10 - Essential (primary) hypertension (4) CAD (coronary artery disease): Qualified Codes: I25.10 - Atherosclerotic heart disease of [place] coronary artery without angina pectoris (5) Constipation: Qualified Codes: K59.00 - Constipation, unspecified Kalyani Loaiza MD R1 Mar 26, 2017 10:50
[2017-03-26] MEDS: ARGATROBAN INJ 250 MG in SODIUM CHLOR 0.9% 250 ML INJ 250 ML IV PRN (10:57)
[2017-03-26] MEDS ORDERED: POLYETHYLENE GLYCOL 17 GM PKG PO PRN (11:00)
[2017-03-26] MEDS ORDERED: MAGNESIUM HYDROXIDE SUSP 30 ML CUP PO PRN (11:00)
[2017-03-26] MEDS ORDERED: DOCUSATE SODIUM 50 MG/SENNA 8.6 MG TAB PO PRN (11:00)
[2017-03-26 13:11] LABS: AUTOMATED NEUTROPHIL # 19.3 TH/MM3 (1.8-7.7); BASOPHIL % 0.1 % (0.0-2.0); HEMATOCRIT 43.7 % (39.0-51.0); HEMOGLOBIN 14.5 GM/DL (13.0-17.0); LYMPH % 1.1 % (9.0-44.0); LYMPHOCYTE # 0.2 TH/MM3 (1.0-4.8); MEAN CORPUSCULAR HEMOGLOBIN 28.6 PG (27.0-34.0); MEAN CORPUSCULAR HGB CONC 33.2 % (32.0-36.0); MEAN PLATELET VOLUME 9.3 FL (7.0-11.0); MONO % 2.8 % (0.0-8.0); MONOCYTE # 0.6 TH/MM3 (0-0.9); PLATELET COUNT 107 TH/MM3 (150-450); RED BLOOD COUNT 5.08 MIL/MM3 (4.50-5.90); RED CELL DISTRIBUTION WIDTH 14.9 % (11.6-17.2); WHITE BLOOD COUNT 20.2 TH/MM3 (4.0-11.0)
[2017-03-26 13:25] LABS: ALBUMIN 2.9 GM/DL (3.4-5.0); AST (GOT) 39 U/L (15-37); BICARBONATE 20.7 MEQ/L (21.0-32.0); CALCIUM 8.2 MG/DL (8.5-10.1); CHLORIDE 106 MEQ/L (98-107); CREATININE 1.24 MG/DL (0.60-1.30); GLOMERULAR FILTRATION RATE 56 ML/MIN (>89); GLUCOSE,RANDOM 104 MG/DL (74-106); SODIUM (NA) 137 MEQ/L (136-145)
[2017-03-26 13:26] LABS: ALT (GPT) 71 U/L (12-78)
[2017-03-26 13:28] LABS: ALKALINE PHOSPHATASE 50 U/L (45-117); TOTAL BILIRUBIN ADULT 0.8 MG/DL (0.2-1.0); TOTAL PROTEIN 5.9 GM/DL (6.4-8.2)
--- NOTE | 2017-03-26 13:31 | RADRPT ---
EXAM DATE/TIME: 03/26/2017 13:04 [place] COMPARISON: CTA RUNOFF W 3D RECON, March 07, 2017, 11:30. CT PULMONARY ANGIOGRAM, March 23, 2017, 12:36. U S KIDNEY/RENAL/BLADDER, March 25, 2017, 12:29. INDICATIONS : Abdominal pain. Evaluate mass. ORAL CONTRAST: No oral contrast ingested. RADIATION DOSE: 19.45 CTDIvol (mGy) MEDICAL HISTORY : Cardiovascular disease. Gastroesophageal reflux disease. SURGICAL HISTORY : Cholecystectomy. Fusion, lumbar. ENCOUNTER: Initial ACUITY: 1 day PAIN SCALE: 1/10 LOCATION: abdomen TECHNIQUE: Volumetric scanning of the abdomen and pelvis was performed. Using automated exposure control and ad justment of the mA and/or kV according to patient size, radiation dose was kept as low as reasonably achievable to obtain optimal diagnostic quality images. DICOM format image data is available electro nically for review and comparison. FINDINGS: LOWER LUNGS: There is minimal bilateral basilar dependent atelectasis. There is an old posterior 10th rib fracture present. LIVER: There is a benign cyst identified within the left lobe of the liver. No evidence of biliary obstructi on. No abnormal areas of attenuation suggestive of metastatic disease. SPLEEN: Normal size without lesion. PANCREAS: Within normal limits. KIDNEYS: The kidneys demonstrate multiple bilateral renal cysts. The renal parenchyma appears mildly thinned. No evidence of hydronephrosis. No evidence of concerning renal mass. The ureters are normal in calibe r. ADRENAL GLANDS: Within normal limits. VASCULAR: There is no aortic aneurysm. Scattered atherosclerosis. There is an IVC filter present and appropriat e in location. BOWEL/MESENTERY: The stomach, small bowel, and colon demonstrate no acute abnormality. There is no free intraperitone al air or fluid. ABDOMINAL WALL: Within normal limits. RETROPERITONEUM: There is no lymphadenopathy. BLADDER: Bladder is greatly distended. The wall is thin. There is a linear area of increased attenuation ident ified within the right base of the bladder new from prior exam. This likely represents retained excre shireen contrast. REPRODUCTIVE: The prostate gland demonstrates significant enlargement measuring 7.1 x 7.8 x 6.1 cm. This may be cau sing bladder outlet obstruction INGUINAL: There is no lymphadenopathy or hernia. MUSCULOSKELETAL: Degenerative changes without evidence of lytic or blastic lesion. CONCLUSION: 1. Significant prostatic enlargement which appears to be causing a degree of bladder outlet obstructi on.. 2. No evidence of inflammatory process within the abdomen or pelvis, no evidence of mass or adenopath y. No etiology seen for the patient's pulmonary embolus. Danni Vieira MD on March 26, 2017 at 13:21 Board Certified Radiologist. This report was verified electronically.
[2017-03-26 13:41] LABS: BLOOD UREA NITROGEN 81 MG/DL (7-18)
[2017-03-26] MEDS: MONTELUKAST SODIUM 10 MG TAB PO SCH (21:13)
[2017-03-26] MEDS: ATORVASTATIN 80 MG TAB PO SCH (21:13)
[2017-03-27] VITALS (11 sets, daily range): BP systolic 105–143; BP diastolic 72–94; PULSE 61–87; RESP 18–20; TEMP 97–98.5; O2SAT 91–95
[2017-03-27] MEDS: ARGATROBAN INJ 250 MG in SODIUM CHLOR 0.9% 250 ML INJ 250 ML IV PRN (00:22)
[2017-03-27] MEDS: CHLORHEXIDINE GLUCONATE 2 % 1 PACK (2 CLOTHS)(taper/protocol) TOPICAL SCH (03:09)
--- NOTE | 2017-03-27 08:35 | HHI.FPPN ---
Subjective Remarks No acute events overnight. Pt lying in bed, on 3L NC. Spoke with nurse this morning, pt had recorded 11 BM, think it's due to bowel regimen. Bowel regimen on hold and will order C.diff. Patient has no complaints this morning. Endorses SOB, unchanged from prior. Updated patient about results of noncontrast CT of abdomen/pelvis. He has hx of BPH. States that he feels like he has urinary retention after voiding. Will do bladder scan and straight cath if needed. Denies CP, abdominal pain, and N/V. (Kalyani Loaiza MD R1) Remarks Patient examined on rounds separate from the resident physicians. Patient was seen at approximately 11 AM and had no complaints. He denies chest pain or palpitations. He denies shortness of breath. He denies abdominal pain or discomfort. He denies fevers or chills. (Gary Rosado MD) Objective Vitals Vital Signs Date Time Temp Pulse Resp B/P (MAP) Pulse Ox O2 Delivery O2 Flow Rate FiO2 03/27/17 04:00 98.1 72 19 127/89 (102) 91 03/27/17 04:00 Nasal Cannula 3.00 03/27/17 03:49 67 03/27/17 02:06 93 Nasal Cannula 2.00 03/27/17 00:00 Nasal Cannula 3.00 03/27/17 00:00 98.5 61 18 118/74 (89) 93 03/26/17 23:44 59 03/26/17 20:00 Nasal Cannula 3.00 03/26/17 20:00 97.6 82 17 112/74 (87) 92 03/26/17 19:42 77 03/26/17 16:00 76 03/26/17 16:00 98.0 67 18 122/79 (93) 92 03/26/17 12:00 62 03/26/17 12:00 97.8 62 18 119/72 (88) 92 I/O 03/26/17 03/26/17 03/26/17 03/27/17 03/27/17 03/27/17 07:00 15:00 23:00 07:00 15:00 23:00 Intake Total 480 ml Balance 480 ml Intake Oral 480 ml # Voids 3 4 3 # Bowel Movements 2 8 3 (Kalyani Loaiza MD R1) Result Diagram: 03/26/17 1250 03/26/17 1250 Objective Remarks GENERAL: Elderly gentleman lying in bed sleeping upon entering the room in NAD. RESPIRATORY: CTAB, currently on 3L nasal cannula with oxygen saturation of 96%. No increased work of breathing. CARDIOVASCULAR: RRR, no m/r/g. Radial and DP pulses 2+ and symmetric bilaterally. Brisk capillary refill. ABDOMEN: Soft, nondistended, nontender with BS in all 4 quadrants. No masses appreciated. MUSCULOSKELETAL: No edema appreciated. BL calf tenderness, negative Brenna's bilaterally. No swelling or skin changes. 2+ DP and PT pulses BL. LLE Femoropopliteal bypass incision sites, CDI. Pulses 2+ b/l. Sensation intact b/l. Moving toes and legs b/l. SKIN: Essentially clear with no significant rash or lesions. Adequate skin turgor. NEUROLOGICAL: Continued slurred speech, stable from prior exam. Otherwise CN 2- 12 intact. Patient does attempt to communicate verbally, however he primarily communicates through hand motions and yes/no questions. Sensation intact throughout. Procedures tPA therapy for thrombolysis of left SFA 03/08-03/09 (Kalyani Loaiza MD R1) Objective Remarks General: Debilitated male, lying in bed in no obvious distress Respiratory: Clear to auscultation anteriorly, currently on 3 L nasal cannula Cardiovascular: Regular rate and rhythm with no murmurs, rubs, or gallops Abdomen: Soft, mildly distended, no tenderness or guarding (Gary Rosado MD) A/P Assessment and Plan 76-year-old male s/p Fempop bypass surgery on 03/09 subsequently found to have acute right cerebellar infarct on 03/13, b/l DVTs on 03/20 s/p IVC filter placed 03/21, and saddle PE on 03/23. Patient transferred to [facility] on 03/23 for further monitoring. Patient is currently stable. Discharge Planning Pending clinical course Palliative care consulted to verify goals PT/OT/speech at rehab (Kalyani Loaiza MD R1) Attending Attestation Patient examined and case discussed with resident physicians I have read the above note and agree with the assessment/plan as discussed with me I was involved in all medical decision making for this patient Gary Rosado MD (Gary Rosado MD) Problem List: (1) Hypercoagulopathy ICD Codes: D68.59 - Other primary thrombophilia Status: Acute Plan: Tumor markers ordered for suspected metastasis AFP, CA125, PSA wnl CA 19-9 elevated at 171.1 and CEA elevated at 5.3 CT Abd/pelvis w/o contrast demonstrated significant prostatic enlargement which appears to be causing a degree of bladder outlet obstruction. No evidence of inflammtory process within the abdomen or pelvis, no evidence of mass or adenopathy. -Hematology consulted, appreciated recommendations -Continue on Argatroban -Hypercoagulable workup pending -Protein C, AT III high, however not clinically significant. -Antiphospholipid IgM antibody. 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 -Neurology and Hematology consulted, continue on Argatroban anticoagulation -Currently on 3L NC with saturation in the mid 90s. 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 Currently on Argatroban 250mg IV due to saddle embolus and afib. He does have approximately 15-20% chance of worsening intracranial hemorrhage on systemic anticoagulation. -Continue Aspirin, Effient discontinued -CT previously recommended 04/01/17 -Neurologically stable -Neurosurgery consulted, recs appreciated -CT head reviewed, nonoperative mgt -Palliative care consulted to assist with medical goals -Neurochecks q4h -Continue PT/OT/ST, patient encouraged to participate in therapy to assist with discharge planning Previous Workup: Patient with slurred speech on 03/[address] and MRI showing R cerebellar edema and infarction consistent with CVA. -Head CT: 3.5 x 3.6 cm low attenuation area in the right cerebellar hemisphere area most characteristic of edema which could be secondary to underlying mass or infarction. Second smaller focal peripheral area of decreased attenuation involving the right parietal occipital watershed region concerning for edema as well. Further evaluation with MRI recommended. -Brain MRI: Proximally 5cm infarct of the right cerebellar hemisphere with small punctate infarcts in the right occipital lobe and left parietal lobe. Remote lacunar infarcts of the right basal ganglia and cerebellum. -Head MRA: Patient within normal limits for age -Neck MRA: No significant stenosis in the carotid arteries. Left vertebral artery is dominant. -Neck CTA: Minimal calcific plaquing nonstenotic bilateral carotid bulbs and initial segment of the right internal carotid. -Repeat Brain MRI: no significant change in the appearance of large acute infarction involving the right cerebellum as well as the much smaller acute infarctions involving the right occipital lobe and left high parietal cortex. -Repeat head CT: Stable right cerebellar infarction, fourth ventricle open, no signs of hydrocephalus (4) Paroxysmal atrial fibrillation ICD Codes: I48.0 - Paroxysmal atrial fibrillation Status: Acute Plan: -Cardiology consulted, recs appreciated. -SEAN: atrial septal aneurysm and PFO. PFO closure not recommended. Otherwise , unremarkable. -Paroxysmal atrial fibrillation noted 03/20 -Continue metoprolol 50mg PO q12hr and Amiodarone 200mg PO daily. -Continue anticoagulation as above. (5) DVT (deep venous thrombosis) ICD Codes: I82.409 - Acute embolism and thrombosis of unspecified deep veins of unspecified lower extremity Status: Acute Plan: -LE US 03/20/17: Positive venous Doppler bilaterally above the knee on the R and below the knee on the L. -IR consulted, IVC filter placed 03/20/17, abdominal X-ray 03/23 demonstrated stable position of IVC filter over L1 and L2 -Anticoagulation as above. 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 -Thoracic aneurysm aneurysm will be managed medically and with close follow- up for imaging -Goal systolic blood pressure of less than 120 (9) Superficial femoral artery occlusion ICD Codes: I70.209 - Unspecified atherosclerosis of [place] arteries of extremities, unspecified extremity Status: Resolved Plan: -Patient status post left femoropopliteal bypass femoral endarterectomy popliteal endarterectomy and patch on 03/09 -Patient w/ hx of PAD (10) HTN (hypertension) ICD Codes: I10 - Essential (primary) hypertension Status: Chronic Plan: -Continue lisinopril 10 mg daily, metoprolol tartrate 50 mg PO BID -Vasotec 1.25 mg IV when necessary for systolic blood pressure greater than 160 , diastolic blood pressure greater than 90 -Goal systolic blood pressure of less than 120 due to thoracic aortic aneurysm (11) CAD (coronary artery disease) ICD Codes: I25.10 - Atherosclerotic heart disease of [place] coronary artery without angina pectoris Status: Chronic Plan: -Patient with known CAD, status post coronary stents placed in 2007 -Continue home atorvastatin 80 mg at night, ASA 81 mg daily (12) BPH (benign prostatic hyperplasia) ICD Codes: N40.0 - Benign prostatic hyperplasia without lower urinary tract symptoms Plan: Continue home finasteride 5 mg by mouth daily Will do bladder scan looking for residual urine after voiding Straight cath if needed (13) Diarrhea ICD Codes: R19.7 - Diarrhea, unspecified Plan: Held bowel regimen C.diff PCR pending (14) FEN Plan: Diet: Heart healthy diet with nectar thickened liquids Oral fluids only Replete electrolytes as needed Neurochecks q4h Zofran as needed for nausea Tylenol as needed for fever Protonix for GI prophylaxis (Kalyani Loaiza MD R1) Problem Qualifiers (1) DVT (deep venous thrombosis): (2) Pneumonia: (3) HTN (hypertension): Qualified Codes: I10 - Essential (primary) hypertension (4) CAD (coronary artery disease): Qualified Codes: I25.10 - Atherosclerotic heart disease of [place] coronary artery without angina pectoris Kalyani Loaiza MD R1 Mar 27, 2017 08:34 Gary Rosado MD Mar 27, 2017 16:40
[2017-03-27] MEDS: ASPIRIN 81 MG CHEW TAB CHEW SCH (08:43)
[2017-03-27] MEDS: methylPREDNISolone SOD SUCC 40 MG/1 ML VIAL IV PUSH SCH (08:44)
[2017-03-27] MEDS: DULoxetine HCl DR 60 MG CAP PO SCH (08:44)
[2017-03-27] MEDS: FINASTERIDE 5 MG TAB PO SCH (08:44)
[2017-03-27] MEDS: AMIODARONE 200 MG TAB PO SCH (08:44)
[2017-03-27] MEDS: GABAPENTIN 300 MG CAP PO SCH ×2 (08:44→21:02)
[2017-03-27] MEDS: PANTOPRAZOLE SOD 40 MG DELAYED RELEASE TAB PO SCH (08:44)
[2017-03-27] MEDS: LISINOPRIL 10 MG TAB PO SCH (08:44)
[2017-03-27] MEDS: METOPROLOL TARTRATE 50 MG TAB PO SCH ×2 (08:44→21:01)
[2017-03-27] MEDS: FLUTICASONE 200 MCG/VILANTEROL 25 MCG INHALER INH SCH (08:45)
[2017-03-27] MEDS: SODIUM CHLORIDE 0.9% FLUSH 10 ML FLUSH IV FLUSH SCH ×2 (08:45→21:02)
[2017-03-27] MEDS: MULTIVITAMIN TAB PO SCH (08:46)
[2017-03-27 09:57] LABS: AUTOMATED NEUTROPHIL # 18.3 TH/MM3 (1.8-7.7); EOSINOPHIL % 0.1 % (0.0-4.0); HEMATOCRIT 46.6 % (39.0-51.0); HEMOGLOBIN 15.3 GM/DL (13.0-17.0); LYMPHOCYTE # 0.6 TH/MM3 (1.0-4.8); MEAN CELL VOLUME 86.6 FL (80.0-100.0); MEAN CORPUSCULAR HEMOGLOBIN 28.4 PG (27.0-34.0); MEAN CORPUSCULAR HGB CONC 32.9 % (32.0-36.0); MEAN PLATELET VOLUME 9.1 FL (7.0-11.0); MONO % 4.5 % (0.0-8.0); MONOCYTE # 0.9 TH/MM3 (0-0.9); NEUT % 92.4 % (16.0-70.0); PLATELET COUNT 108 TH/MM3 (150-450); RED BLOOD COUNT 5.39 MIL/MM3 (4.50-5.90); RED CELL DISTRIBUTION WIDTH 15.3 % (11.6-17.2); WHITE BLOOD COUNT 19.7 TH/MM3 (4.0-11.0)
[2017-03-27] MEDS: HEPARIN-D5W 25,000 U/250 ML 250 ML IV PRN (11:42)
--- NOTE | 2017-03-27 13:08 | PD.ONC.PN ---
Subjective Subjective Remarks Afebrile overnight. Patient resting in bed in nad. No complaints. Per nurse no overnight events. Patient gives me a thumbs up when I ask him how is doing. Objective Data Date Time Temp Pulse Resp B/P (MAP) Pulse Ox O2 Delivery O2 Flow Rate FiO2 03/27/17 12:00 97.5 87 20 132/78 (96) 93 03/27/17 12:00 83 03/27/17 09:43 95 Nasal Cannula 3.00 03/27/17 08:00 72 03/27/17 08:00 97.5 81 20 143/94 (110) 95 03/27/17 07:15 Nasal Cannula 3.00 03/27/17 04:00 98.1 72 19 127/89 (102) 91 03/27/17 04:00 Nasal Cannula 3.00 03/27/17 03:49 67 03/27/17 02:06 93 Nasal Cannula 2.00 03/27/17 00:00 Nasal Cannula 3.00 03/27/17 00:00 98.5 61 18 118/74 (89) 93 03/26/17 23:44 59 03/26/17 20:00 Nasal Cannula 3.00 03/26/17 20:00 97.6 82 17 112/74 (87) 92 03/26/17 19:42 77 03/26/17 16:00 76 03/26/17 16:00 98.0 67 18 122/79 (93) 92 03/27/17 03/27/17 03/27/17 07:00 15:00 23:00 Intake Total 358 ml Balance 358 ml Result Diagram: 03/27/17 0940 03/26/17 1250 Laboratory Results Laboratory Tests Test 03/27/17 09:40 03/27/17 11:25 White Blood Count 19.7 TH/MM3 Red Blood Count 5.39 MIL/MM3 Hemoglobin 15.3 GM/DL Hematocrit 46.6 % Mean Corpuscular Volume 86.6 FL Mean Corpuscular Hemoglobin 28.4 PG Mean Corpuscular Hemoglobin Concent 32.9 % Red Cell Distribution Width 15.3 % Platelet Count 108 TH/MM3 Mean Platelet Volume 9.1 FL Neutrophils (%) (Auto) 92.4 % Lymphocytes (%) (Auto) 3.0 % Monocytes (%) (Auto) 4.5 % Eosinophils (%) (Auto) 0.1 % Basophils (%) (Auto) 0.0 % Neutrophils # (Auto) 18.3 TH/MM3 Lymphocytes # (Auto) 0.6 TH/MM3 Monocytes # (Auto) 0.9 TH/MM3 Eosinophils # (Auto) 0.0 TH/MM3 Basophils # (Auto) 0.0 TH/MM3 CBC Comment DIFF FINAL Differential Comment Activated Partial Thromboplast Time 64.1 SEC Stool C. difficile Toxin (PCR) NEGATIVE Stl C. difficile Toxin Epiderm 027 PRESUMPTIVE NEGATIVE Culture Results Microbiology Date/Time Source Procedure Growth Status 03/27/17 11:25 Stool Stool Stool Occult Blood (ASTER) - Final HEMOCCULT NEGATIVE Complete Administered Medications Medications (Trade) Dose Ordered Sig/L[place] Route PRN Reason Start Time Stop Time Status Last Admin Dose Admin Sodium Chloride (NS Flush) 2 ml UNSCH PRN IV FLUSH FLUSH AFTER USING IV ACCESS 03/05/17 22:00 03/23/17 05:34 Sodium Chloride (NS Flush) 2 ml BID IV FLUSH 03/06/17 09:00 03/27/17 08:45 Atorvastatin Calcium (Lipitor) 80 mg HS PO 03/05/17 22:15 03/26/17 21:13 Finasteride (Proscar) 5 mg DAILY PO 03/06/17 09:00 03/27/17 08:44 Fluticasone/ Vilanterol (Breo Ellipta 200-25 Inh) 1 puff DAILY INH 03/06/17 09:00 03/27/17 08:45 Gabapentin (Neurontin) 300 mg BID PO 03/05/17 22:15 03/27/17 08:44 Lisinopril (Prinivil) 10 mg DAILY PO 03/06/17 09:00 03/27/17 08:44 Prasugrel (Effient) 10 mg DAILY PO 03/06/17 09:00 Future Hold 03/12/17 08:51 Pantoprazole Sodium (Protonix) 40 mg DAILY PO 03/06/17 09:00 03/27/17 08:44 Multivitamins (Theragran) 1 tab DAILY PO 03/06/17 09:00 03/27/17 08:46 Albuterol Sulfate (Albuterol Neb) 2.5 mg Q4HR WHILE AWAKE NEB PRN NEB SHORTNESS OF BREATH 03/05/17 22:15 03/22/17 13:46 Ondansetron HCl (Zofran Inj) 4 mg Q6HR PRN IV PUSH NAUSEA OR VOMITING 03/05/17 22:15 03/17/17 20:32 Acetaminophen (Tylenol) 325 mg Q4H PRN PO FEVER 03/05/17 22:15 03/11/17 00:55 Metoprolol Tartrate (Lopressor) 50 mg Q12HR PO 03/06/17 10:00 03/27/17 08:44 Montelukast Sodium (Singulair) 10 mg HS PO 03/06/17 21:00 03/26/17 21:13 Morphine Sulfate (Morphine Inj) 4 mg Q3H PRN IV PUSH 6-10 03/09/17 16:30 03/13/17 09:57 Oxycodone/ Acetaminophen (Percocet 5-325 Mg) 1 tab Q4H PRN PO 3-5 03/09/17 16:30 03/22/17 00:43 Lactulose (Lactulose Liq) 30 ml DAILY PRN PO SEVERE CONSITIPATION 03/14/17 12:30 03/14/17 15:23 Aspirin (Aspirin Chew) 162 mg DAILY CHEW 03/19/17 09:00 03/27/17 08:43 Duloxetine HCl (Cymbalta Dr) 60 mg DAILY PO 03/23/17 09:00 03/27/17 08:44 Amiodarone HCl (Cordarone) 200 mg DAILY PO 03/23/17 09:00 03/27/17 08:44 Miscellaneous Information Patient in critical care unit? Ass... [id number] .XX 03/23/17 21:15 03/23/17 21:15 Chlorhexidine Gluconate (Chlorhexidine 2% Cloth) 3 pack DAILY@04 TOPICAL 03/24/17 04:00 03/28/17 04:01 03/24/17 04:00 Methylprednisolone Sodium Succinate (SoluMEDROL INJ) 40 mg DAILY IV PUSH 03/27/17 09:00 03/27/17 08:44 Heparin Sodium/ Dextrose 250 ml @ 18 mls/hr TITRATE PRN IV Coagulation Management 03/27/17 09:30 03/27/17 11:42 Objective Remarks GENERAL: Elderly male, supine in bed, on 3L O2 via NC SKIN: Warm and dry. HEAD: Normocephalic. EYES: No injection or drainage. NECK: Supple, trachea midline. CARDIOVASCULAR: Regular rate and rhythm RESPIRATORY: anterior [place] clear. GASTROINTESTINAL: Abdomen soft, non-tender, nondistended. EXTREMITIES: No cyanosis, or edema. NEUROLOGICAL: awake. non-verbal. following commands. facial movements symmetric. Assessment/Plan Assessment 76y/o male with h/o PAD admitted on 03/05/17 with dyspnea. History: --evaluated by vascular surgery for worsening PVD and superficial femoral artery occlusion --s/p tpa lysis and then femoral-popliteal bypass. --then developed right cerebellar ischemic infarct with punctate infarcts of the right occipital and left parietal lobes. --bc of the minimal degree of ICH, ac was placed on hold --LE U/S showed DVT bilaterally --had IVC filter placement on 03/21/17 Plan 1. SHAUN returned negative. stop Argatroban, start Heparin gtt. 2. monitor CBC. monitor neurologic status. 3. thrombocytopenia: likely d/t consumption from multiple clots. continue with anticoagulation and monitor. Attending Statement The exam, history, and the medical decision-making described in the above note were completed with the assistance of the mid-level provider. I reviewed and agree with the findings presented. I attest that I had a [id number] encounter with the patient on the same day, and personally performed and documented my assessment and findings in the medical record. 75 yoM with extensive arterial venous thrombosis and stroke with hemorrhagic component. On IV anticoagulation. Risk of rebleed. Continue to monitor. Continue with heparin gtt. Jennifer Otto Mar 27, 2017 13:08 Cheryle Coleman MD Mar 28, 2017 06:27
[2017-03-27 14:32] LABS: INTERNATIONAL NORMALIZED RATIO 1.6 RATIO; PROTHROMBIN TIME - PATIENT 16.1 SEC (9.8-11.6)
--- NOTE | 2017-03-27 14:37 | HHI.PR ---
Subjective Remarks ALERT NO SOB Objective Vital Signs Date Time Temp Pulse Resp B/P (MAP) Pulse Ox O2 Delivery O2 Flow Rate FiO2 03/27/17 12:00 97.5 87 20 132/78 (96) 93 03/27/17 12:00 83 03/27/17 09:43 95 Nasal Cannula 3.00 03/27/17 08:00 72 03/27/17 08:00 97.5 81 20 143/94 (110) 95 03/27/17 07:15 Nasal Cannula 3.00 03/27/17 04:00 98.1 72 19 127/89 (102) 91 03/27/17 04:00 Nasal Cannula 3.00 03/27/17 03:49 67 03/27/17 02:06 93 Nasal Cannula 2.00 03/27/17 00:00 Nasal Cannula 3.00 03/27/17 00:00 98.5 61 18 118/74 (89) 93 03/26/17 23:44 59 03/26/17 20:00 Nasal Cannula 3.00 03/26/17 20:00 97.6 82 17 112/74 (87) 92 03/26/17 19:42 77 03/26/17 16:00 76 03/26/17 16:00 98.0 67 18 122/79 (93) 92 I/O 03/26/17 03/26/17 03/26/17 03/27/17 03/27/17 03/27/17 06:59 14:59 22:59 06:59 14:59 22:59 Intake Total 480 ml 358 ml Balance 480 ml 358 ml Intake Oral 480 ml 358 ml # Voids 3 4 3 1 # Bowel Movements 2 8 3 2 Result Diagram: 03/27/17 0940 03/26/17 1250 Objective Remarks GENERAL: SKIN: Warm and dry. HEAD: Atraumatic. Normocephalic. EYES: Pupils equal and round. No scleral icterus. No injection or drainage. ENT: No nasal bleeding or discharge. Mucous membranes pink and moist. NECK: Trachea midline. No JVD. CARDIOVASCULAR: Regular rate and rhythm. RESPIRATORY: No accessory muscle use. Clear to auscultation. Breath sounds equal bilaterally. GASTROINTESTINAL: Abdomen soft, non-tender, nondistended. Hepatic and splenic margins not palpable. MUSCULOSKELETAL: Extremities without clubbing, cyanosis, or edema. No obvious deformities. NEUROLOGICAL: Awake and alert. No obvious cranial nerve deficits. Motor grossly within normal limits. Five out of 5 muscle strength in the arms and legs. Normal speech. PSYCHIATRIC: Appropriate mood and affect; insight and judgment normal. GENERAL: SKIN: Warm and dry. HEAD: Atraumatic. Normocephalic. EYES: Pupils equal and round. No scleral icterus. No injection or drainage. ENT: No nasal bleeding or discharge. Mucous membranes pink and moist. NECK: Trachea midline. No JVD. CARDIOVASCULAR: Regular rate and rhythm. RESPIRATORY: No accessory muscle use. Clear to auscultation. Breath sounds equal bilaterally. GASTROINTESTINAL: Abdomen soft, non-tender, nondistended. Hepatic and splenic margins not palpable. MUSCULOSKELETAL: Extremities without clubbing, cyanosis, or edema. No obvious deformities. NEUROLOGICAL: Awake and alert. No obvious cranial nerve deficits. Motor grossly within normal limits. Five out of 5 muscle strength in the arms and legs. Normal speech. PSYCHIATRIC: Appropriate mood and affect; insight and judgment normal. Assessment and Plan Assessment and Plan ? BRONCHIAL ASTHMA, now stable PVD s/p CVA ACUTE PE PLAN ANTICOAGULATE IF OK WITH NEURO O2 NEEDED PRN ALBUTEROL INREASE ACTIVITY Krysta Chaparro MD Mar 27, 2017 14:37
[2017-03-27 14:50] LABS: BICARBONATE 21.1 MEQ/L (21.0-32.0); CALCIUM 8.4 MG/DL (8.5-10.1); CREATININE 1.29 MG/DL (0.60-1.30)
--- NOTE | 2017-03-27 16:01 | HHI.HCPN ---
Reason for visit a. To assist with evaluation and management of symptoms including: Dyspnea, weakness, edema b. To assist medical decision maker(s) with: better understanding of current medical conditions; weighing benefits/burdens of medical treatment options; making medical treatment decisions. Subjective/Interval History Sleeping off and on today. Arouses to questions but doses back off. is at bedside. He has been on Argatroban pending SHAUN results. Those were received today and were negative for HIT. Based on those lab results, patient will be transitioned back to heparin pending clearance from neurology to initiate Coumadin due to bilateral pulmonary embolus, thrombosis in the distal left SFA, CVA and bilateral DVTs. Clinical findings * Laboratory: sodium 135, potassium 5.1, BUN 74, creatinine 1.29, WBC 19.7, hemoglobin 15.3, hematocrit 46.6, platelets 108, PT 16.1, INR 1.6, APTT 40.2. Stool was Hemoccult negative. Tumor markers had previously been ordered for suspected metastasis. AFP and CEA 125 within normal limits. CA 19-9 elevated at 171.1 and CEA elevated at 5.3. * Radiology: Significant prostatic enlargement which appears to be causing a degree of bladder outlet obstruction, otherwise no evidence of inflammatory process within the abdomen or pelvis, no evidence of mass or adenopathy, no etiology seen for the patient's pulmonary embolus. . Family/friend interactions Spoke with at length at bedside to educate further on clotting disorder, pulmonary embolus and transition of medications from argatroban to heparin. Answered questions regarding current clinical status. Provided supportive listening. Discussed upcoming planned interventions. expressed concern about the transfer from [facility] [place] 1401. She felt that the patient being so far from the nurses station meant that he was just being left there to . Provided reassurance that that was not the case and that the decreased stimulation in the room was allowing patient better sleep. The states that she feels that he "looks good" and has "good color". She is more encouraged about his possible transition to rehabilitation at some point in the future. expressed appreciation for the visit. . Advance Directives Living Will: Never completed Health Care Surrogate: Never completed Durable Power of Quantometer Operator: Never completed Objective Vital Signs Date Time Temp Pulse Resp B/P (MAP) Pulse Ox O2 Delivery O2 Flow Rate FiO2 2/12/18 12:00 97.5 87 20 132/78 (96) 93 03/27/17 12:00 83 03/27/17 09:43 95 Nasal Cannula 3.00 03/27/17 08:00 72 03/27/17 08:00 97.5 81 20 143/94 (110) 95 03/27/17 07:15 Nasal Cannula 3.00 03/27/17 04:00 98.1 72 19 127/89 (102) 91 03/27/17 04:00 Nasal Cannula 3.00 03/27/17 03:49 67 03/27/17 02:06 93 Nasal Cannula 2.00 03/27/17 00:00 Nasal Cannula 3.00 03/27/17 00:00 98.5 61 18 118/74 (89) 93 03/26/17 23:44 59 03/26/17 20:00 Nasal Cannula 3.00 03/26/17 20:00 97.6 82 17 112/74 (87) 92 03/26/17 19:42 77 03/26/17 16:00 76 03/26/17 16:00 98.0 67 18 122/79 (93) 92 Intake & Output 03/27/17 03/27/17 07:00 19:00 Intake Total 358 ml Balance 358 ml Intake Oral 358 ml # Voids 3 1 # Bowel Movements 3 2 Physical Exam CONSTITUTIONAL/GENERAL: This is an adequately nourished patient, in no apparent distress. TUBES/LINES/DRAINS: PIV 2 SKIN: No jaundice, rashes, or lesions. Ecchymoses on upper extremities. No wounds seen anteriorly. Skin temperature appropriate. Not diaphoretic. NECK: Trachea midline. Supple, nontender. No palpable thyroid enlargement or nodularity. CARDIOVASCULAR: Regular rate and rhythm without murmurs, gallops, or rubs. No JVD. Peripheral pulses symmetric. RESPIRATORY/CHEST: Symmetric, unlabored respirations. Clear to auscultation. Breath sounds equal bilaterally. No wheezes, rales, or rhonchi. GASTROINTESTINAL: Abdomen soft, obese, non-tender, nondistended. No hepato- splenomegaly, or palpable masses. No guarding. Bowel sounds present. GENITOURINARY: Without palpable bladder distension. Rodriugez catheter in place. MUSCULOSKELETAL: Extremities without clubbing, cyanosis, or edema. No joint tenderness or effusion noted. No calf tenderness. No mottling or clubbing. LYMPHATICS: No palpable cervical or supraclavicular adenopathy. NEUROLOGICAL: Lethargic, sleeping, arousable, answers appropriately. PSYCHIATRIC: No obvious anxiety/depression. no apparent hallucinations or other psychotic thought process. . Diagnostic Tests Laboratory Laboratory Tests Test 03/25/17 07:06 03/25/17 10:45 03/25/17 23:39 03/26/17 12:50 Activated Partial Thromboplast Time 58.8 SEC (24.3-30.1) 51.8 SEC (24.3-30.1) White Blood Count 22.1 TH/MM3 (4.0-11.0) 20.2 TH/MM3 (4.0-11.0) Red Blood Count 5.30 MIL/MM3 (4.50-5.90) 5.08 MIL/MM3 (4.50-5.90) Hemoglobin 15.0 GM/DL (13.0-17.0) 14.5 GM/DL (13.0-17.0) Hematocrit 46.1 % (39.0-51.0) 43.7 % (39.0-51.0) Mean Corpuscular Volume 87.0 FL (80.0-100.0) 86.0 FL (80.0-100.0) Mean Corpuscular Hemoglobin 28.2 PG (27.0-34.0) 28.6 PG (27.0-34.0) Mean Corpuscular Hemoglobin Concent 32.5 % (32.0-36.0) 33.2 % (32.0-36.0) Red Cell Distribution Width 15.2 % (11.6-17.2) 14.9 % (11.6-17.2) Platelet Count 123 TH/MM3 (150-450) 107 TH/MM3 (150-450) Mean Platelet Volume 9.2 FL (7.0-11.0) 9.3 FL (7.0-11.0) Neutrophils (%) (Auto) 96.3 % (16.0-70.0) 96.0 % (16.0-70.0) Lymphocytes (%) (Auto) 1.0 % (9.0-44.0) 1.1 % (9.0-44.0) Monocytes (%) (Auto) 2.6 % (0.0-8.0) 2.8 % (0.0-8.0) Eosinophils (%) (Auto) 0.0 % (0.0-4.0) 0.0 % (0.0-4.0) Basophils (%) (Auto) 0.1 % (0.0-2.0) 0.1 % (0.0-2.0) Neutrophils # (Auto) 21.3 TH/MM3 (1.8-7.7) 19.3 TH/MM3 (1.8-7.7) Lymphocytes # (Auto) 0.2 TH/MM3 (1.0-4.8) 0.2 TH/MM3 (1.0-4.8) Monocytes # (Auto) 0.6 TH/MM3 (0-0.9) 0.6 TH/MM3 (0-0.9) Eosinophils # (Auto) 0.0 TH/MM3 (0-0.4) 0.0 TH/MM3 (0-0.4) Basophils # (Auto) 0.0 TH/MM3 (0-0.2) 0.0 TH/MM3 (0-0.2) CBC Comment DIFF FINAL DIFF FINAL Differential Comment Blood Urea Nitrogen 89 MG/DL (7-18) 87 MG/DL (7-18) 81 MG/DL (7-18) Creatinine 1.50 MG/DL (0.60-1.30) 1.45 MG/DL (0.60-1.30) 1.24 MG/DL (0.60-1.30) Random Glucose 128 MG/DL (74-106) 107 MG/DL (74-106) 104 MG/DL (74-106) Calcium Level 8.5 MG/DL (8.5-10.1) 8.1 MG/DL (8.5-10.1) 8.2 MG/DL (8.5-10.1) Sodium Level 136 MEQ/L (136-145) 136 MEQ/L (136-145) 137 MEQ/L (136-145) Potassium Level 5.1 MEQ/L (3.5-5.1) 5.1 MEQ/L (3.5-5.1) 5.2 MEQ/L (3.5-5.1) Chloride Level 106 MEQ/L (98-107) 104 MEQ/L (98-107) 106 MEQ/L (98-107) Carbon Dioxide Level 20.7 MEQ/L (21.0-32.0) 23.5 MEQ/L (21.0-32.0) 20.7 MEQ/L (21.0-32.0) Anion Gap 9 MEQ/L (5-15) 9 MEQ/L (5-15) 10 MEQ/L (5-15) Estimat Glomerular Filtration Rate 45 ML/MIN (>89) 47 ML/MIN (>89) 56 ML/MIN (>89) Tumor Marker Alpha Fetoprotein 1.2 NG/ML (0.5-8.0) Carcinoembryonic Antigen 5.3 NG/ML (0.2-5.0) CA 19-9 Antigen 171.1 U/ML (0.0-35.0) CA 125 Antigen 20.0 U/ML (0.0-30.2) Prostate Specific Antigen 3.16 NG/ML (0.00-4.00) Hematology Comments Total Protein 5.9 GM/DL (6.4-8.2) Albumin 2.9 GM/DL (3.4-5.0) Alkaline Phosphatase 50 U/L (45-117) Aspartate Amino Transf (AST/SGOT) 39 U/L (15-37) Alanine Aminotransferase (ALT/SGPT) 71 U/L (12-78) Total Bilirubin 0.8 MG/DL (0.2-1.0) Test 03/27/17 09:40 03/27/17 11:25 03/27/17 13:45 White Blood Count 19.7 TH/MM3 (4.0-11.0) Red Blood Count 5.39 MIL/MM3 (4.50-5.90) Hemoglobin 15.3 GM/DL (13.0-17.0) Hematocrit 46.6 % (39.0-51.0) Mean Corpuscular Volume 86.6 FL (80.0-100.0) Mean Corpuscular Hemoglobin 28.4 PG (27.0-34.0) Mean Corpuscular Hemoglobin Concent 32.9 % (32.0-36.0) Red Cell Distribution Width 15.3 % (11.6-17.2) Platelet Count 108 TH/MM3 (150-450) Mean Platelet Volume 9.1 FL (7.0-11.0) Neutrophils (%) (Auto) 92.4 % (16.0-70.0) Lymphocytes (%) (Auto) 3.0 % (9.0-44.0) Monocytes (%) (Auto) 4.5 % (0.0-8.0) Eosinophils (%) (Auto) 0.1 % (0.0-4.0) Basophils (%) (Auto) 0.0 % (0.0-2.0) Neutrophils # (Auto) 18.3 TH/MM3 (1.8-7.7) Lymphocytes # (Auto) 0.6 TH/MM3 (1.0-4.8) Monocytes # (Auto) 0.9 TH/MM3 (0-0.9) Eosinophils # (Auto) 0.0 TH/MM3 (0-0.4) Basophils # (Auto) 0.0 TH/MM3 (0-0.2) CBC Comment DIFF FINAL Differential Comment Activated Partial Thromboplast Time 64.1 SEC (24.3-30.1) 40.2 SEC (24.3-30.1) Blood Urea Nitrogen 74 MG/DL (7-18) Creatinine 1.29 MG/DL (0.60-1.30) Random Glucose 110 MG/DL (74-106) Calcium Level 8.4 MG/DL (8.5-10.1) Sodium Level 135 MEQ/L (136-145) Potassium Level 5.1 MEQ/L (3.5-5.1) Chloride Level 104 MEQ/L (98-107) Carbon Dioxide Level 21.1 MEQ/L (21.0-32.0) Anion Gap 10 MEQ/L (5-15) Estimat Glomerular Filtration Rate 54 ML/MIN (>89) Stool C. difficile Toxin (PCR) NEGATIVE (NEGATIVE) Stl C. difficile Toxin Epiderm 027 PRESUMPTIVE NEGATIVE Prothrombin Time 16.1 SEC (9.8-11.6) Prothromb Time International Ratio 1.6 RATIO . Result Diagram: 03/27/17 0940 03/27/17 0940 Microbiology Microbiology Date/Time Source Procedure Growth Status 03/27/17 11:25 Stool Stool Stool Occult Blood (ASTER) - Final HEMOCCULT NEGATIVE Complete Imaging Last Impressions Abdomen/Pelvis CT 03/26/17 0000 Signed Impressions: Service Date/Time: Sunday, March 26, 2017 13:04 - CONCLUSION: 1. Significant prostatic enlargement which appears to be causing a degree of bladder outlet obstruction.. 2. No evidence of inflammatory process within the abdomen or pelvis, no evidence of mass or adenopathy. No etiology seen for the patient's pulmonary embolus. Danni Vieira MD Renal Ultrasound 03/25/17 1205 Signed Impressions: Service Date/Time: Saturday, March 25, 2017 12:29 - CONCLUSION: Bilateral kidneys appear enlarged which is secondary to multiple bilateral large renal cysts. There is no evidence of hydronephrosis or obstructive uropathy. Lakhwinder Adams MD Chest X-Ray 03/23/17 0000 Signed Impressions: Service Date/Time: March 10:52 - CONCLUSION: 1. Developing lateral atelectatic changes above the left hemidiaphragm. Lungs are otherwise clear. 2. Stable degenerative changes of the dorsal spine. 3. Heart size is borderline but well compensated. Domingo Laura MD CT Angiography 03/23/17 0000 Signed Impressions: Service Date/Time: March 12:36 - CONCLUSION: 1. There is saddle embolus with clot seen in both the right and left central pulmonary arteries. There is fairly extensive thrombus evident. 2. 2.9 x 3.2 cm cyst within the liver. 3. Mild aneurysmal dilation of the ascending aorta and proximal arch Judah Nelson MD Abdomen X-Ray 03/23/17 0000 Signed Impressions: Service Date/Time: March 10:57 - CONCLUSION: 1. Radiographically benign abdomen. 2. Stable position of Vena-Tech type IVC filter projecting over the L1 and L2 vertebral bodies. 3. Degenerative changes of the thoracolumbar spine as described above. Domingo Laura MD IVC Filter Placement X-Ray 03/21/17 0000 Signed Impressions: Service Date/Time: Tuesday, March 21, 2017 11:48 - CONCLUSION: Uncomplicated inferior vena cava filter placement as above. Lupillo Arellano MD Lower Extremity Ultrasound 03/20/17 0000 Signed Impressions: Service Date/Time: Monday, March 20, 2017 14:25 - CONCLUSION: Positive venous Doppler bilaterally above the knee on the right and below the knee on the left. Seymour Nelson MD FACR Head CT 03/15/17 0800 Signed Impressions: Service Date/Time: Wednesday, March 15, 2017 08:11 - CONCLUSION: 1. Stable CT of the brain including prominent area of low-density in the right cerebellum could be an acute/subacute infarct. This is unchanged. 2. Old appearing small infarcts in the right parietal/occipital lobe and left cerebellum are stable. Bradley Simmons MD Neck CTA 03/14/17 Signed Impressions: Service Date/Time: Tuesday, March 14, 2017 10:44 - CONCLUSION: Minimal calcific plaquing nonstenotic bilateral carotid bulbs and initial segment of the right internal carotid. Lakhwinder Adams MD Brain MRI 03/14/17 Signed Impressions: Service Date/Time: Tuesday, March 14, 2017 19:56 - CONCLUSION: 1. No significant change in the appearance of large acute infarction involving the right cerebellum as well as the much smaller acute infarctions involving the right occipital lobe and left high parietal cortex. There is evidence of some hemorrhage within the right cerebellar infarct which is unchanged. 2. Scattered periventricular and subcortical white matter small vessel ischemic changes are noted bilaterally. 3. Old lacunar infarcts are noted within the bilateral basal ganglia and bilateral cerebellar hemispheres. Shai Thrasher MD Neck Magnetic Resonance Angiography 03/13/[id number] Signed Impressions: Service Date/Time: Monday, March 13, 2017 21:58 - CONCLUSION: 1. No significant stenosis in the carotid arteries. Left vertebral artery is dominant. Adrián Caicedo MD Head Magnetic Resonance Angiography 03/13/171852 Signed Impressions: Service Date/Time: Monday, March 13, 2017 21:58 - CONCLUSION: 1. Patient within normal limits for age. Adrián Caicedo MD Lower Extremity Angiography 03/08/17 Signed Impressions: Service Date/Time: Wednesday, March 08, 2017 13:02 - CONCLUSION: 1. Distal left above-knee popliteal artery occlusion with plaque and chronic thrombus extending to the distal SFA with mature genicular collaterals. Given the apparent chronicity of the findings, planned TPA thrombolysis was not performed. Donovan Baez MD Liver Ultrasound 03/07/17 Signed Impressions: Service Date/Time: Tuesday, March 07, 2017 18:01 - CONCLUSION: 1. Multiple large right renal cysts. No hydronephrosis a very ductal dilatation. Cholecystectomy. Mild fatty liver. Adrián Caicedo MD Aorta w/Runoff CTA 03/06/17 0000 Signed Impressions: Service Date/Time: Tuesday, March 07, 2017 11:30 - CONCLUSION: 1. There is abrupt occlusion of the left superficial femoral at the adductor hiatus and extending down to the trifurcation. This appears possibly embolic as there is very little diffuse vascular disease. 2. Adequate inflow a variety. 3. Enlargement of the prostate. 4. Multiple renal cysts bilaterally. 5. Enlargement of the prostate. 6. Small bilateral inguinal hernias. Judah Nelson MD Aorta Ultrasound 03/06/17 0000 Signed Impressions: Service Date/Time: Monday, March 06, 2017 07:48 - CONCLUSION: 1. No abdominal aortic aneurysm. Size measurements are given above. Judah Nelson MD Carotid Artery Ultrasound 03/05/17 0000 Signed Impressions: Service Date/Time: Sunday, March 05, 2017 22:16 - CONCLUSION: 1. No hemodynamically significant stenosis in either carotid artery. 2. Nonvisualization right vertebral artery. Bradley Simmons MD Procedures 03/06-electroencephalogram 03/09-left femoropopliteal bypass with PTFE graft, popliteal endarterectomy and common femoral endarterectomy, external iliac endarterectomy. 03/16-transesophageal echocardiogram . 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 He was in the [employer] reserve for a short time. He has been to his for 13 years and has 4 children from a previous marriage. He worked as a computer systems administrator and retired about 13 years ago. Spiritual: He is Pentecostalism and would wish for a fruit cutter visit for sacraments of this it. Legal: No issues noted. Ethical issues impacting care: No issues noted. . Important Contacts -Shruthi Gallagher Son Moreno Gallagher Daughter - Steph Gallagher, [place] Daughter Marcela Rodriguez, [place] Son - Conner Gallagher, [place] . Prognosis His prognosis is guarded. He has multiple risk factors for continued thromboembolic disease to include suspected paroxysmal atrial fibrillation, recent CVA, patent foramen ovale, positive HIT, peripheral artery disease, known pulmonary embolus, bilateral VTE and questionable hypercoagulable state. He is also at risk for bleeding due to the need for anticoagulation as well as small hemorrhagic component to last CVA. Per neurology he has a 15-20% risk of bleeding on anticoagulation due to his recent stroke with hemorrhagic component. . Code Status: No Code Plan PLAN: Legal decision maker: Patient at this time cannot express himself clearly and is allowing his to be the primary decision maker. He is able to listen and signal with nodding his agreement or disagreement. At this time would recommend shared decision making. Goals: Would like to consider rehabilitation as he now appears to be improving slightly. CODE STATUS: DNR SYMPTOMS: * Dyspnea: Patient is less dyspneic and now on nasal cannula. He has difficulty speaking, partially due to residual effects of a stroke and partially due to dyspnea. He is able to lie flat with minimal dyspnea at this time. * Edema: Likely related to his grade 1 diastolic dysfunction, prolonged hospital course and multiple procedures. He is improving with leg elevation. * Weakness -had initially planned to go to [facility] but discharge was canceled secondary to severe dyspnea and pulmonary embolus. He will likely need rehabilitation once he is stabilized. PT and OT are following. Palliative care will continue to follow the patient during hospital course as condition evolves, to assist patient/decision-maker with understanding of their medical conditions, weighing benefits/burdens of treatment options, for clarification of goals of treatment. Additionally will assist with any symptoms of palliative concern. . Attestation To help prompt me to consider important information that might be impacting today's encounter and assessment, information from prior notes written by myself or my colleagues may have been "brought forward" into today's note. My signature on this note, however, is an attestation that I personally performed the exam, history, and/or decision-making noted today, and, unless otherwise indicated, the interactions with patient, family, and staff as well as the review of records all occurred today. I also attest that the listed assessment and stated plan reflect my best clinical judgment today based on the combination of historical information, prior notes, and today's exam/ interactions. When time spent is documented, it refers only to time spent today by the signer, or if indicated, combined time spent today by collaborating physician/nurse practitioner. . Joselin Balbuena Mar 27, 2017 16:01
[2017-03-27] MEDS: MONTELUKAST SODIUM 10 MG TAB PO SCH (21:01)
[2017-03-27] MEDS: ATORVASTATIN 80 MG TAB PO SCH (21:02)
[2017-03-28] VITALS (11 sets, daily range): BP systolic 90–118; BP diastolic 54–89; PULSE 68–90; RESP 18–22; TEMP 95.6–99.1; O2SAT 91–95
[2017-03-28] MEDS: CHLORHEXIDINE GLUCONATE 2 % 1 PACK (2 CLOTHS)(taper/protocol) TOPICAL SCH (03:34)
[2017-03-28] MEDS: RESP: ALBUTEROL 2.5 MG/3 ML NEB (PRN) NEB (07:42)
[2017-03-28] MEDS: FLUTICASONE 200 MCG/VILANTEROL 25 MCG INHALER INH SCH (09:00)
[2017-03-28 09:13] LABS: HEMATOCRIT 45.5 % (39.0-51.0); HEMOGLOBIN 15.1 GM/DL (13.0-17.0); MEAN CELL VOLUME 86.2 FL (80.0-100.0); MEAN CORPUSCULAR HEMOGLOBIN 28.6 PG (27.0-34.0); MEAN CORPUSCULAR HGB CONC 33.2 % (32.0-36.0); MEAN PLATELET VOLUME 9.6 FL (7.0-11.0); PLATELET COUNT 104 TH/MM3 (150-450); RED BLOOD COUNT 5.28 MIL/MM3 (4.50-5.90); RED CELL DISTRIBUTION WIDTH 15.6 % (11.6-17.2); WHITE BLOOD COUNT 19.1 TH/MM3 (4.0-11.0)
--- NOTE | 2017-03-28 09:25 | HHI.FPPN ---
Subjective Remarks No acute events overnight. Pt lying in bed this AM, on 3L NC O2. Pt nods head when asked about abdominal pain. Patient has a firm, tender, lower right abdominal mass on palpation. When asked if it is new, patient responds no. Responds yes and states that it has been there a couple of days. He denies CP. States that his SOB is unchanged from prior. He denies leg pain. No other complaints this AM. (Kalyani Loaiza MD R1) Objective Vitals Vital Signs Date Time Temp Pulse Resp B/P (MAP) Pulse Ox O2 Delivery O2 Flow Rate FiO2 03/28/17 08:00 95.6 84 20 114/75 (88) 95 03/28/17 07:45 94 Nasal Cannula 3.00 03/28/17 04:06 68 03/28/17 04:00 99.1 90 20 118/89 (99) 94 03/28/17 00:05 74 03/28/17 00:00 98.1 75 22 103/73 (83) 94 03/28/17 00:00 Nasal Cannula 3.00 03/27/17 20:05 77 03/27/17 20:00 Nasal Cannula 3.00 03/27/17 20:00 97.1 77 18 117/72 (87) 93 03/27/17 16:50 67 03/27/17 16:00 97.0 66 20 105/75 (85) 93 03/27/17 12:00 97.5 87 20 132/78 (96) 93 03/27/17 12:00 83 03/27/17 09:43 95 Nasal Cannula 3.00 I/O 03/27/17 03/27/17 03/27/17 03/28/17 03/28/17 03/28/17 07:00 15:00 23:00 07:00 15:00 23:00 Intake Total 358 ml 200 ml Balance 358 ml 200 ml Intake Oral 358 ml 200 ml Bladder Scan Volume Amount 11 ml # Voids 3 1 1 4 # Bowel Movements 3 2 1 3 (Kalyani Loaiza MD R1) Result Diagram: 03/28/17 0815 03/27/17 0940 Objective Remarks General: Debilitated male, lying in bed in no obvious distress Respiratory: Clear to auscultation anteriorly, currently on 3 L nasal cannula Cardiovascular: Regular rate and rhythm with no murmurs, rubs, or gallops Abdomen: Soft, firm, tender mass palpated in right lower quadrant, non reducible Procedures tPA therapy for thrombolysis of left SFA 03/08-03/09 (Kalyani Loaiza MD R1) A/P Assessment and Plan 76-year-old male s/p Fempop bypass surgery on 03/09 subsequently found to have acute right cerebellar infarct on 03/13, b/l DVTs on 03/20 s/p IVC filter placed 03/21, and saddle PE on 03/23. Patient transferred to [facility] on 03/23 for further monitoring. Patient is currently stable. Discharge Planning Pending clinical course Palliative care consulted to verify goals PT/OT/speech at rehab (Kalyani Loaiza MD R1) Attending Attestation Pt. examined and case reviewed with resident physician I have read the above note and agree with the assessment/plan as discussed with me I was involved in all medical decision making for this patient Gary Rosado MD (Gary Rosado MD) Problem List: (1) Hypercoagulopathy ICD Codes: D68.59 - Other primary thrombophilia Status: Acute Plan: -Hematology consulted, appreciated recommendations -Continue Heparin gtt (restarted 03/27) -Discontinued Argatroban 03/27 -SHAUN noted to be negative Tumor markers ordered for suspected metastasis AFP, CA125, PSA wnl CA 19-9 elevated at 171.1 and CEA elevated at 5.3 CT Abd/pelvis w/o contrast demonstrated significant prostatic enlargement which appears to be causing a degree of bladder outlet obstruction. No evidence of inflammtory process within the abdomen or pelvis, no evidence of mass or adenopathy. -Hypercoagulable workup pending -Protein C, AT III high, however not clinically significant. -Antiphospholipid IgM antibody. 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 -Neurology and Hematology consulted, stopped argatroban, start Heparin gtt -Currently on 3L NC with saturation in the mid 90s. 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 Currently on Argatroban 250mg IV due to saddle embolus and afib. He does have approximately 15-20% chance of worsening intracranial hemorrhage on systemic anticoagulation. -Continue Aspirin, Effient discontinued -CT previously recommended 04/01/17 -Neurologically stable -Neurosurgery consulted, recs appreciated -CT head reviewed, nonoperative mgt -Palliative care consulted to assist with medical goals -Neurochecks q4h -Continue PT/OT/ST, patient encouraged to participate in therapy to assist with discharge planning Previous Workup: Patient with slurred speech on 03/[address] and MRI showing R cerebellar edema and infarction consistent with CVA. -Head CT: 3.5 x 3.6 cm low attenuation area in the right cerebellar hemisphere area most characteristic of edema which could be secondary to underlying mass or infarction. Second smaller focal peripheral area of decreased attenuation involving the right parietal occipital watershed region concerning for edema as well. Further evaluation with MRI recommended. -Brain MRI: Proximally 5cm infarct of the right cerebellar hemisphere with small punctate infarcts in the right occipital lobe and left parietal lobe. Remote lacunar infarcts of the right basal ganglia and cerebellum. -Head MRA: Patient within normal limits for age -Neck MRA: No significant stenosis in the carotid arteries. Left vertebral artery is dominant. -Neck CTA: Minimal calcific plaquing nonstenotic bilateral carotid bulbs and initial segment of the right internal carotid. -Repeat Brain MRI: no significant change in the appearance of large acute infarction involving the right cerebellum as well as the much smaller acute infarctions involving the right occipital lobe and left high parietal cortex. -Repeat head CT: Stable right cerebellar infarction, fourth ventricle open, no signs of hydrocephalus (4) Paroxysmal atrial fibrillation ICD Codes: I48.0 - Paroxysmal atrial fibrillation Status: Acute Plan: -Cardiology consulted, recs appreciated. -SEAN: atrial septal aneurysm and PFO. PFO closure not recommended. Otherwise , unremarkable. -Paroxysmal atrial fibrillation noted 2 -Continue metoprolol 50mg PO q12hr and Amiodarone 200mg PO daily. -Continue anticoagulation as above. (5) DVT (deep venous thrombosis) ICD Codes: I82.409 - Acute embolism and thrombosis of unspecified deep veins of unspecified lower extremity Status: Acute Plan: -LE US 03/20/17: Positive venous Doppler bilaterally above the knee on the R and below the knee on the L. -IR consulted, IVC filter placed 03/20/17, abdominal X-ray 03/23 demonstrated stable position of IVC filter over L1 and L2 -Anticoagulation as above. (6) Abdominal mass ICD Codes: R19.00 - Intra-abdominal and pelvic swelling, mass and lump, unspecified site Plan: Most likely hematoma from Lovenox SC shots Abdominal US unremarkable (7) Pneumonia ICD Codes: J18.9 - Pneumonia, unspecified organism Plan: CXR 03/17 demonstrated consolidation with infrahilar region on the right, possible aspiration Pneumonia -Pulmonology previously consulted, appreciate recommendations -Start Prednisone 20mg daily -Discontinued Methylprednisolone 80mg IV push q8hr Discontinued Vancomycin, pharmacy consulted for dosing (03/17-03/22) Discontinued Zosyn 4.5 GM IV q6h (03/17-03/22) (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 -Thoracic aneurysm aneurysm will be managed medically and with close follow- up for imaging -Goal systolic blood pressure of less than 120 (10) Superficial femoral artery occlusion ICD Codes: I70.209 - Unspecified atherosclerosis of pala arteries of extremities, unspecified extremity Status: Resolved Plan: -Patient status post left femoropopliteal bypass femoral endarterectomy popliteal endarterectomy and patch on 03/09 -Patient w/ hx of PAD (11) HTN (hypertension) ICD Codes: I10 - Essential (primary) hypertension Status: Chronic Plan: -Continue lisinopril 10 mg daily, metoprolol tartrate 50 mg PO BID -Vasotec 1.25 mg IV when necessary for systolic blood pressure greater than 160 , diastolic blood pressure greater than 90 -Goal systolic blood pressure of less than 120 due to thoracic aortic aneurysm (12) CAD (coronary artery disease) ICD Codes: I25.10 - Atherosclerotic heart disease of pala coronary artery without angina pectoris Status: Chronic Plan: -Patient with known CAD, status post coronary stents placed in 2007 -Continue home atorvastatin 80 mg at night, ASA 81 mg daily (13) BPH (benign prostatic hyperplasia) ICD Codes: N40.0 - Benign prostatic hyperplasia without lower urinary tract symptoms Plan: Continue home finasteride 5 mg by mouth daily Will do bladder scan looking for residual urine after voiding Straight cath if needed (14) Diarrhea ICD Codes: R19.7 - Diarrhea, unspecified Plan: Improving Held bowel regimen C.diff PCR negative (15) FEN Plan: Diet: Heart healthy diet with nectar thickened liquids Oral fluids only Replete electrolytes as needed Neurochecks q4h Zofran as needed for nausea Tylenol as needed for fever Protonix for GI prophylaxis (Kalyani Loaiza MD R1) Problem Qualifiers (1) DVT (deep venous thrombosis): (2) Pneumonia: (3) HTN (hypertension): Qualified Codes: I10 - Essential (primary) hypertension (4) CAD (coronary artery disease): Qualified Codes: I25.10 - Atherosclerotic heart disease of pala coronary artery without angina pectoris Kalyani Loaiza MD R1 Mar 28, 2017 09:25 Gary Rosado MD Mar 28, 2017 16:26
[2017-03-28 09:29] LABS: BICARBONATE 20.5 MEQ/L (21.0-32.0); CALCIUM 8.3 MG/DL (8.5-10.1); CREATININE 1.32 MG/DL (0.60-1.30)
[2017-03-28] MEDS: MULTIVITAMIN TAB PO SCH (09:50)
[2017-03-28] MEDS: AMIODARONE 200 MG TAB PO SCH (09:50)
[2017-03-28] MEDS: METOPROLOL TARTRATE 50 MG TAB PO SCH ×2 (09:50→20:00)
[2017-03-28] MEDS: DULoxetine HCl DR 60 MG CAP PO SCH (09:50)
[2017-03-28] MEDS: LISINOPRIL 10 MG TAB PO SCH (09:50)
[2017-03-28] MEDS: PANTOPRAZOLE SOD 40 MG DELAYED RELEASE TAB PO SCH (09:50)
[2017-03-28] MEDS: GABAPENTIN 300 MG CAP PO SCH ×2 (09:51→20:00)
[2017-03-28] MEDS: methylPREDNISolone SOD SUCC 40 MG/1 ML VIAL IV PUSH SCH (09:51)
[2017-03-28] MEDS: FINASTERIDE 5 MG TAB PO SCH (09:51)
[2017-03-28] MEDS: ASPIRIN 81 MG CHEW TAB CHEW SCH (09:51)
[2017-03-28] MEDS: SODIUM CHLORIDE 0.9% FLUSH 10 ML FLUSH IV FLUSH SCH ×2 (09:55→20:00)
--- NOTE | 2017-03-28 10:56 | RADRPT ---
EXAM DATE/TIME: 03/28/2017 10:02 [facility] COMPARISON: No previous studies available for comparison. INDICATIONS : Palpable area in right lower quadrant. MEDICAL HISTORY : Deep venous thrombosis. Hypertension. Hypercholesterolemia. Heart attack. Coroanry artery disease. GE RD. Arthritis. SURGICAL HISTORY : Cholecystectomy. Coroanry stent. ENCOUNTER: Initial ACUITY: 1 day PAIN SCORE: 0/10 LOCATION: Right lower quadrant AREA EVALUATED: Right lower quadrant. FINDINGS: Sonographic evaluation of the area of palpable concern within the right lower quadrant was performed. The area was directed by the patient. No mass, fluid collection, or adenopathy observed. Incidental noted is made of distention of the urinary bladder with a calculated volume of approximately 1500 mL. CONCLUSION: 1. No abnormality in the area of palpable concern. 2. Note is made of a distended urinary bladder. Adrian Perez Jr., MD on March 28, 2017 at 10:52 Board Certified Radiologist. This report was verified electronically.
[2017-03-28] MEDS: HEPARIN-D5W 25,000 U/250 ML 250 ML IV PRN (11:00)
--- NOTE | 2017-03-28 13:18 | PD.ONC.PN ---
Subjective Subjective Remarks Afebrile overnight. Patient resting in bed in nad. Tolerating heparin gtt. No change in mental status. Objective Data Date Time Temp Pulse Resp B/P (MAP) Pulse Ox O2 Delivery O2 Flow Rate FiO2 03/28/17 12:00 97.3 83 20 90/57 (68) 91 03/28/17 10:00 85 03/28/17 08:00 95.6 84 20 114/75 (88) 95 03/28/17 07:45 94 Nasal Cannula 3.00 03/28/17 04:06 68 03/28/17 04:00 99.1 90 20 118/89 (99) 94 03/28/17 00:05 74 03/28/17 00:00 98.1 75 22 103/73 (83) 94 03/28/17 00:00 Nasal Cannula 3.00 03/27/17 20:05 77 03/27/17 20:00 Nasal Cannula 3.00 03/27/17 20:00 97.1 77 18 117/72 (87) 93 03/27/17 16:50 67 03/27/17 16:00 97.0 66 20 105/75 (85) 93 03/28/17 03/28/17 03/28/17 07:00 15:00 23:00 Intake Total 200 ml 720 ml Balance 200 ml 720 ml Result Diagram: 03/28/17 0815 03/28/17 0815 Laboratory Results Laboratory Tests Test 03/27/17 13:45 03/28/17 00:11 03/28/17 04:20 03/28/17 08:15 Prothrombin Time 16.1 SEC Prothromb Time International Ratio 1.6 RATIO Activated Partial Thromboplast Time 40.2 SEC 264.9 SEC 96.1 SEC 35.9 SEC White Blood Count 19.1 TH/MM3 Red Blood Count 5.28 MIL/MM3 Hemoglobin 15.1 GM/DL Hematocrit 45.5 % Mean Corpuscular Volume 86.2 FL Mean Corpuscular Hemoglobin 28.6 PG Mean Corpuscular Hemoglobin Concent 33.2 % Red Cell Distribution Width 15.6 % Platelet Count 104 TH/MM3 Mean Platelet Volume 9.6 FL Fibrinogen 139 mg/dL Blood Urea Nitrogen 73 MG/DL Creatinine 1.32 MG/DL Random Glucose 94 MG/DL Calcium Level 8.3 MG/DL Sodium Level 134 MEQ/L Potassium Level 5.3 MEQ/L Chloride Level 103 MEQ/L Carbon Dioxide Level 20.5 MEQ/L Anion Gap 11 MEQ/L Estimat Glomerular Filtration Rate 52 ML/MIN Culture Results Microbiology Date/Time Source Procedure Growth Status 03/27/17 11:25 Stool Stool Stool Occult Blood (ASTER) - Final HEMOCCULT NEGATIVE Complete Imaging Studies Last 24 hours Impressions Soft Tissue Ultrasound 03/28/17 0000 Signed Impressions: Service Date/Time: Tuesday, March 28, 2017 10:02 - CONCLUSION: 1. No abnormality in the area of palpable concern. 2. Note is made of a distended urinary bladder. Adrian Perez Jr., MD Administered Medications Medications (Trade) Dose Ordered Sig/Lizbeth Route PRN Reason Start Time Stop Time Status Last Admin Dose Admin Sodium Chloride (NS Flush) 2 ml UNSCH PRN IV FLUSH FLUSH AFTER USING IV ACCESS 03/05/17 22:00 03/23/17 05:34 Sodium Chloride (NS Flush) 2 ml BID IV FLUSH 03/06/17 09:00 03/28/17 09:55 Atorvastatin Calcium (Lipitor) 80 mg HS PO 03/05/17 22:15 03/27/17 21:02 Finasteride (Proscar) 5 mg DAILY PO 03/06/17 09:00 03/28/17 09:51 Fluticasone/ Vilanterol (Breo Ellipta 200-25 Inh) 1 puff DAILY INH 03/06/17 09:00 03/27/17 08:45 Gabapentin (Neurontin) 300 mg BID PO 03/05/17 22:15 03/28/17 09:51 Lisinopril (Prinivil) 10 mg DAILY PO 03/06/17 09:00 03/28/17 09:50 Prasugrel (Effient) 10 mg DAILY PO 03/06/17 09:00 Future Hold 03/12/17 08:51 Pantoprazole Sodium (Protonix) 40 mg DAILY PO 03/06/17 09:00 03/28/17 09:50 Multivitamins (Theragran) 1 tab DAILY PO 03/06/17 09:00 03/28/17 09:50 Albuterol Sulfate (Albuterol Neb) 2.5 mg Q4HR WHILE AWAKE NEB PRN NEB SHORTNESS OF BREATH 03/05/17 22:15 03/28/17 07:42 Ondansetron HCl (Zofran Inj) 4 mg Q6HR PRN IV PUSH NAUSEA OR VOMITING 03/05/17 22:15 03/17/17 20:32 Acetaminophen (Tylenol) 325 mg Q4H PRN PO FEVER 03/05/17 22:15 03/11/17 00:55 Metoprolol Tartrate (Lopressor) 50 mg Q12HR PO 03/06/17 10:00 03/28/17 09:50 Montelukast Sodium (Singulair) 10 mg HS PO 03/06/17 21:00 03/27/17 21:01 Morphine Sulfate (Morphine Inj) 4 mg Q3H PRN IV PUSH 6-10 03/09/17 16:30 03/13/17 09:57 Oxycodone/ Acetaminophen (Percocet 5-325 Mg) 1 tab Q4H PRN PO 3-5 03/09/17 16:30 03/22/17 00:43 Lactulose (Lactulose Liq) 30 ml DAILY PRN PO SEVERE CONSITIPATION 03/14/17 12:30 03/14/17 15:23 Aspirin (Aspirin Chew) 162 mg DAILY CHEW 03/19/17 09:00 03/28/17 09:51 Duloxetine HCl (Cymbalta Dr) 60 mg DAILY PO 03/23/17 09:00 03/28/17 09:50 Amiodarone HCl (Cordarone) 200 mg DAILY PO 03/23/17 09:00 03/28/17 09:50 Miscellaneous Information Patient in critical care unit? Ass... [id number] .XX 03/23/17 21:15 03/23/17 21:15 Heparin Sodium/ Dextrose 250 ml @ 18 mls/hr TITRATE PRN IV Coagulation Management 03/27/17 09:30 03/28/17 11:00 Objective Remarks GENERAL: Elderly male, resting in bed in nad. SKIN: Warm and dry. HEAD: Normocephalic. EYES: No injection or drainage. NECK: Supple, trachea midline. CARDIOVASCULAR: Regular rate and rhythm RESPIRATORY: anterior laguna clear. GASTROINTESTINAL: Abdomen soft, non-tender, nondistended. EXTREMITIES: No cyanosis, or edema. NEUROLOGICAL: awake. following commands. able to move extremities. Assessment/Plan Assessment 76y/o male with h/o PAD admitted on 03/05/17 with dyspnea. History: --evaluated by vascular surgery for worsening PVD and superficial femoral artery occlusion --s/p tpa lysis and then femoral-popliteal bypass. --then developed right cerebellar ischemic infarct with punctate infarcts of the right occipital and left parietal lobes. --bc of the minimal degree of ICH, ac was placed on hold --LE U/S showed DVT bilaterally --had IVC filter placement on 03/21/17 Plan 1. continue heparin gtt. 2. monitor CBC. monitor neurologic status. Attending Statement The exam, history, and the medical decision-making described in the above note were completed with the assistance of the mid-level provider. I reviewed and agree with the findings presented. I attest that I had a [id number] encounter with the patient on the same day, and personally performed and documented my assessment and findings in the medical record. 76 yoM with extensive arterial and venous VTE, and hehorrhagic CVA. s/p placement of IVC filter. Developed saddle PE. He is currently on anticoagulation. Difficult clinical situation given hemorrhagic stroke and clotting. 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 No evidence of TMA, DIC. Continue anticoagualtion, risk of rebleed into brain. Palliative care team following. Jennifer Otto Mar 28, 2017 13:18 Cheryle Coleman MD Mar 29, 2017 07:34
--- NOTE | 2017-03-28 15:38 | HHI.HCPN ---
Reason for visit a. To assist with evaluation and management of symptoms including: Dyspnea, weakness, edema b. To assist medical decision maker(s) with: better understanding of current medical conditions; weighing benefits/burdens of medical treatment options; making medical treatment decisions. Subjective/Interval History Awake this morning. Has difficulty with speech. Voice is hoarse and can speak and occasional word or syllable. Tired about 10 minutes into the conversation and had to lay back in bed. Has not been up out of bed or dangling on side. He states that he does wish to go to therapy but is currently too fatigued and weak. His tolerance for minimal activity, i.e. conversation while resting in bed is an average of 10-15 minutes. His vital signs are stable, blood pressure 90/57, heart rate 83, respiratory rate 20, oxygen saturation 91% on 3 L nasal cannula, T-MAX 99.1. Continues to have multiple bowel movements daily, 6 so far today. C. difficile PCR -03/27. His bladder scan showed residual of 625 mL. He complains of right lower quadrant abdominal discomfort. Soft tissue ultrasound shows a distended bladder, no other significant findings. Previous CT of the abdomen and pelvis identified significant prostatic enlargement causing a degree of bladder outlet obstruction. Laboratory studies reveal WBC 19.1, hemoglobin 15.1, hematocrit 45.5, platelets 104, sodium 134, potassium 5.3 , BUN 73, creatinine 1.32. Hematology following for hypercoagulopathy and elevated tumor markers. . Family/friend interactions Spoke with at bedside regarding [place] DNR, plans going forward, clinical findings and patient's goals. Family would like to pursue rehabilitation, remains realistic about the patient's debility and poor participation. We did discuss the participation requirements at [facility], where he was previously approved to go, prior to developing a bilateral saddle pulmonary embolus. He is significantly disabled in debilitated at this time, extremely weak with easy fatigability. . Advance Directives Living Will: Never completed Health Care Surrogate: Never completed Durable Power of Transformation Lead: Never completed Objective Vital Signs Date Time Temp Pulse Resp B/P (MAP) Pulse Ox O2 Delivery O2 Flow Rate FiO2 03/28/17 12:00 97.3 83 20 90/57 (68) 91 03/28/17 10:00 85 03/28/17 08:00 95.6 84 20 114/75 (88) 95 03/28/17 07:45 94 Nasal Cannula 3.00 03/28/17 04:06 68 03/28/17 04:00 99.1 90 20 118/89 (99) 94 03/28/17 00:05 74 03/28/17 00:00 98.1 75 22 103/73 (83) 94 03/28/17 00:00 Nasal Cannula 3.00 03/27/17 20:05 77 03/27/17 20:00 Nasal Cannula 3.00 03/27/17 20:00 97.1 77 18 117/72 (87) 93 03/27/17 16:50 67 03/27/17 16:00 97.0 66 20 105/75 (85) 93 Intake & Output 03/28/17 03/28/17 07:00 19:00 Intake Total 200 ml 720 ml Balance 200 ml 720 ml Intake Oral 200 ml 720 ml Bladder Scan Volume Amount 625 ml # Voids 4 1 # Bowel Movements 3 0 Physical Exam CONSTITUTIONAL/GENERAL: This is an adequately nourished patient, in no apparent distress. TUBES/LINES/DRAINS: PIV 2 SKIN: No jaundice, rashes, or lesions. Ecchymoses on upper extremities. No wounds seen anteriorly. Skin temperature appropriate. Not diaphoretic. NECK: Trachea midline. Supple, nontender. No palpable thyroid enlargement or nodularity. CARDIOVASCULAR: Regular rate and rhythm without murmurs, gallops, or rubs. No JVD. Peripheral pulses symmetric. RESPIRATORY/CHEST: Symmetric, unlabored respirations. Clear to auscultation. Breath sounds equal bilaterally. No wheezes, rales, or rhonchi. GASTROINTESTINAL: Abdomen soft, obese, right lower quadrant tenderness to palpation.. No hepato-splenomegaly, or palpable masses. No guarding. Bowel sounds present. GENITOURINARY: Positive bladder distention.. MUSCULOSKELETAL: Extremities without clubbing, cyanosis, or edema. No joint tenderness or effusion noted. No calf tenderness. No mottling or clubbing. NEUROLOGICAL: Awake, partially aphasic, can speak one syllable at a time with great effort. Fatigues easily, PSYCHIATRIC: No obvious anxiety/depression. no apparent hallucinations or other psychotic thought process. . Diagnostic Tests Laboratory Laboratory Tests Test 03/25/17 23:39 03/26/17 12:50 03/27/17 09:40 03/27/17 11:25 Blood Urea Nitrogen 87 MG/DL (7-18) 81 MG/DL (7-18) 74 MG/DL (7-18) Creatinine 1.45 MG/DL (0.60-1.30) 1.24 MG/DL (0.60-1.30) 1.29 MG/DL (0.60-1.30) Random Glucose 107 MG/DL (74-106) 104 MG/DL (74-106) 110 MG/DL (74-106) Calcium Level 8.1 MG/DL (8.5-10.1) 8.2 MG/DL (8.5-10.1) 8.4 MG/DL (8.5-10.1) Sodium Level 136 MEQ/L (136-145) 137 MEQ/L (136-145) 135 MEQ/L (136-145) Potassium Level 5.1 MEQ/L (3.5-5.1) 5.2 MEQ/L (3.5-5.1) 5.1 MEQ/L (3.5-5.1) Chloride Level 104 MEQ/L (98-107) 106 MEQ/L (98-107) 104 MEQ/L (98-107) Carbon Dioxide Level 23.5 MEQ/L (21.0-32.0) 20.7 MEQ/L (21.0-32.0) 21.1 MEQ/L (21.0-32.0) Anion Gap 9 MEQ/L (5-15) 10 MEQ/L (5-15) 10 MEQ/L (5-15) Estimat Glomerular Filtration Rate 47 ML/MIN (>89) 56 ML/MIN (>89) 54 ML/MIN (>89) Tumor Marker Alpha Fetoprotein 1.2 NG/ML (0.5-8.0) Carcinoembryonic Antigen 5.3 NG/ML (0.2-5.0) CA 19-9 Antigen 171.1 U/ML (0.0-35.0) CA 125 Antigen 20.0 U/ML (0.0-30.2) Prostate Specific Antigen 3.16 NG/ML (0.00-4.00) White Blood Count 20.2 TH/MM3 (4.0-11.0) 19.7 TH/MM3 (4.0-11.0) Red Blood Count 5.08 MIL/MM3 (4.50-5.90) 5.39 MIL/MM3 (4.50-5.90) Hemoglobin 14.5 GM/DL (13.0-17.0) 15.3 GM/DL (13.0-17.0) Hematocrit 43.7 % (39.0-51.0) 46.6 % (39.0-51.0) Mean Corpuscular Volume 86.0 FL (80.0-100.0) 86.6 FL (80.0-100.0) Mean Corpuscular Hemoglobin 28.6 PG (27.0-34.0) 28.4 PG (27.0-34.0) Mean Corpuscular Hemoglobin Concent 33.2 % (32.0-36.0) 32.9 % (32.0-36.0) Red Cell Distribution Width 14.9 % (11.6-17.2) 15.3 % (11.6-17.2) Platelet Count 107 TH/MM3 (150-450) 108 TH/MM3 (150-450) Mean Platelet Volume 9.3 FL (7.0-11.0) 9.1 FL (7.0-11.0) Neutrophils (%) (Auto) 96.0 % (16.0-70.0) 92.4 % (16.0-70.0) Lymphocytes (%) (Auto) 1.1 % (9.0-44.0) 3.0 % (9.0-44.0) Monocytes (%) (Auto) 2.8 % (0.0-8.0) 4.5 % (0.0-8.0) Eosinophils (%) (Auto) 0.0 % (0.0-4.0) 0.1 % (0.0-4.0) Basophils (%) (Auto) 0.1 % (0.0-2.0) 0.0 % (0.0-2.0) Neutrophils # (Auto) 19.3 TH/MM3 (1.8-7.7) 18.3 TH/MM3 (1.8-7.7) Lymphocytes # (Auto) 0.2 TH/MM3 (1.0-4.8) 0.6 TH/MM3 (1.0-4.8) Monocytes # (Auto) 0.6 TH/MM3 (0-0.9) 0.9 TH/MM3 (0-0.9) Eosinophils # (Auto) 0.0 TH/MM3 (0-0.4) 0.0 TH/MM3 (0-0.4) Basophils # (Auto) 0.0 TH/MM3 (0-0.2) 0.0 TH/MM3 (0-0.2) CBC Comment DIFF FINAL DIFF FINAL Differential Comment Hematology Comments Activated Partial Thromboplast Time 51.8 SEC (24.3-30.1) 64.1 SEC (24.3-30.1) Total Protein 5.9 GM/DL (6.4-8.2) Albumin 2.9 GM/DL (3.4-5.0) Alkaline Phosphatase 50 U/L (45-117) Aspartate Amino Transf (AST/SGOT) 39 U/L (15-37) Alanine Aminotransferase (ALT/SGPT) 71 U/L (12-78) Total Bilirubin 0.8 MG/DL (0.2-1.0) Stool C. difficile Toxin (PCR) NEGATIVE (NEGATIVE) Stl C. difficile Toxin Epiderm 027 PRESUMPTIVE NEGATIVE Test 03/27/17 13:45 03/28/17 00:11 03/28/17 04:20 03/28/17 08:15 Prothrombin Time 16.1 SEC (9.8-11.6) Prothromb Time International Ratio 1.6 RATIO Activated Partial Thromboplast Time 40.2 SEC (24.3-30.1) 264.9 SEC (24.3-30.1) 96.1 SEC (24.3-30.1) 35.9 SEC (24.3-30.1) White Blood Count 19.1 TH/MM3 (4.0-11.0) Red Blood Count 5.28 MIL/MM3 (4.50-5.90) Hemoglobin 15.1 GM/DL (13.0-17.0) Hematocrit 45.5 % (39.0-51.0) Mean Corpuscular Volume 86.2 FL (80.0-100.0) Mean Corpuscular Hemoglobin 28.6 PG (27.0-34.0) Mean Corpuscular Hemoglobin Concent 33.2 % (32.0-36.0) Red Cell Distribution Width 15.6 % (11.6-17.2) Platelet Count 104 TH/MM3 (150-450) Mean Platelet Volume 9.6 FL (7.0-11.0) Fibrinogen 139 mg/dL (227-377) Blood Urea Nitrogen 73 MG/DL (7-18) Creatinine 1.32 MG/DL (0.60-1.30) Random Glucose 94 MG/DL (74-106) Calcium Level 8.3 MG/DL (8.5-10.1) Sodium Level 134 MEQ/L (136-145) Potassium Level 5.3 MEQ/L (3.5-5.1) Chloride Level 103 MEQ/L (98-107) Carbon Dioxide Level 20.5 MEQ/L (21.0-32.0) Anion Gap 11 MEQ/L (5-15) Estimat Glomerular Filtration Rate 52 ML/MIN (>89) . Result Diagram: 03/28/17 0815 03/28/17 0815 Microbiology Microbiology Date/Time Source Procedure Growth Status 03/27/17 11:25 Stool Stool Stool Occult Blood (ASTER) - Final HEMOCCULT NEGATIVE Complete Imaging Last Impressions Soft Tissue Ultrasound 03/28/17 0000 Signed Impressions: Service Date/Time: Tuesday, March 28, 2017 10:02 - CONCLUSION: 1. No abnormality in the area of palpable concern. 2. Note is made of a distended urinary bladder. Adrian Perez Jr., MD Abdomen/Pelvis CT 03/26/17 0000 Signed Impressions: Service Date/Time: Sunday, March 26, 2017 13:04 - CONCLUSION: 1. Significant prostatic enlargement which appears to be causing a degree of bladder outlet obstruction.. 2. No evidence of inflammatory process within the abdomen or pelvis, no evidence of mass or adenopathy. No etiology seen for the patient's pulmonary embolus. Danni Vieira MD Renal Ultrasound 03/25/17 1205 Signed Impressions: Service Date/Time: Saturday, March 25, 2017 12:29 - CONCLUSION: Bilateral kidneys appear enlarged which is secondary to multiple bilateral large renal cysts. There is no evidence of hydronephrosis or obstructive uropathy. Lakhwinder Adams MD Chest X-Ray 03/23/17 0000 Signed Impressions: Service Date/Time: March 10:52 - CONCLUSION: 1. Developing lateral atelectatic changes above the left hemidiaphragm. Lungs are otherwise clear. 2. Stable degenerative changes of the dorsal spine. 3. Heart size is borderline but well compensated. Domingo Laura MD CT Angiography 03/23/17 0000 Signed Impressions: Service Date/Time: March 12:36 - CONCLUSION: 1. There is saddle embolus with clot seen in both the right and left central pulmonary arteries. There is fairly extensive thrombus evident. 2. 2.9 x 3.2 cm cyst within the liver. 3. Mild aneurysmal dilation of the ascending aorta and proximal arch Judah Nelson MD Abdomen X-Ray 03/23/17 0000 Signed Impressions: Service Date/Time: March 10:57 - CONCLUSION: 1. Radiographically benign abdomen. 2. Stable position of Vena-Tech type IVC filter projecting over the L1 and L2 vertebral bodies. 3. Degenerative changes of the thoracolumbar spine as described above. Domingo Laura MD IVC Filter Placement X-Ray 03/21/17 0000 Signed Impressions: Service Date/Time: Tuesday, March 21, 2017 11:48 - CONCLUSION: Uncomplicated inferior vena cava filter placement as above. Lupillo Arellano MD Lower Extremity Ultrasound 03/20/17 0000 Signed Impressions: Service Date/Time: Monday, March 20, 2017 14:25 - CONCLUSION: Positive venous Doppler bilaterally above the knee on the right and below the knee on the left. Seymour Nelson MD FACR Head CT 03/15/17 0800 Signed Impressions: Service Date/Time: Wednesday, March 15, 2017 08:11 - CONCLUSION: 1. Stable CT of the brain including prominent area of low-density in the right cerebellum could be an acute/subacute infarct. This is unchanged. 2. Old appearing small infarcts in the right parietal/occipital lobe and left cerebellum are stable. Bradley Simmons MD Neck CTA 03/14/17 0000 Signed Impressions: Service Date/Time: Tuesday, March 14, 2017 10:44 - CONCLUSION: Minimal calcific plaquing nonstenotic bilateral carotid bulbs and initial segment of the right internal carotid. Lakhwinder Adams MD Brain MRI 03/14/17 0000 Signed Impressions: Service Date/Time: Tuesday, March 14, 2017 19:56 - CONCLUSION: 1. No significant change in the appearance of large acute infarction involving the right cerebellum as well as the much smaller acute infarctions involving the right occipital lobe and left high parietal cortex. There is evidence of some hemorrhage within the right cerebellar infarct which is unchanged. 2. Scattered periventricular and subcortical white matter small vessel ischemic changes are noted bilaterally. 3. Old lacunar infarcts are noted within the bilateral basal ganglia and bilateral cerebellar hemispheres. Shai Thrasher MD Neck Magnetic Resonance Angiography 03/13/171852 Signed Impressions: Service Date/Time: Monday, March 13, 2017 21:58 - CONCLUSION: 1. No significant stenosis in the carotid arteries. Left vertebral artery is dominant. Adrián Caicedo MD Head Magnetic Resonance Angiography 03/13/171852 Signed Impressions: Service Date/Time: Monday, March 13, 2017 21:58 - CONCLUSION: 1. Patient within normal limits for age. Adrián Caicedo MD Lower Extremity Angiography 03/08/17 Signed Impressions: Service Date/Time: Wednesday, March 08, 2017 13:02 - CONCLUSION: 1. Distal left above-knee popliteal artery occlusion with plaque and chronic thrombus extending to the distal SFA with mature genicular collaterals. Given the apparent chronicity of the findings, planned TPA thrombolysis was not performed. Donovan Baez MD Liver Ultrasound 03/07/17 0000 Signed Impressions: Service Date/Time: Tuesday, March 07, 2017 18:01 - CONCLUSION: 1. Multiple large right renal cysts. No hydronephrosis a very ductal dilatation. Cholecystectomy. Mild fatty liver. Adrián Caicedo MD Aorta w/Runoff CTA 03/06/17 0000 Signed Impressions: Service Date/Time: Tuesday, March 07, 2017 11:30 - CONCLUSION: 1. There is abrupt occlusion of the left superficial femoral at the adductor hiatus and extending down to the trifurcation. This appears possibly embolic as there is very little diffuse vascular disease. 2. Adequate inflow a variety. 3. Enlargement of the prostate. 4. Multiple renal cysts bilaterally. 5. Enlargement of the prostate. 6. Small bilateral inguinal hernias. Judah Nelson MD Aorta Ultrasound 03/06/17 0000 Signed Impressions: Service Date/Time: Monday, March 06, 2017 07:48 - CONCLUSION: 1. No abdominal aortic aneurysm. Size measurements are given above. Judah Nelson MD Carotid Artery Ultrasound 03/05/17 0000 Signed Impressions: Service Date/Time: Sunday, March 05, 2017 22:16 - CONCLUSION: 1. No hemodynamically significant stenosis in either carotid artery. 2. Nonvisualization right vertebral artery. Bradley Simmons MD . Procedures 03/06-electroencephalogram 03/09-left femoropopliteal bypass with PTFE graft, popliteal endarterectomy and common femoral endarterectomy, external iliac endarterectomy. 03/16-transesophageal echocardiogram . 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 He was in the [employer] reserve for a short time. He has been to his for 13 years and has 4 children from a previous marriage. He worked as a computer graphic artist and retired about 13 years ago. Spiritual: He is [employer] and would wish for a tooling engineering tech visit for sacraments of this it. Legal: No issues noted. Ethical issues impacting care: No issues noted. . Important Contacts -Shruthi Gallagher Son Moreno Gallagher Daughter - Steph Aileen, [place] Daughter Marcela Rodriguez, [place] Son - Conner Gallagher, [place] . Prognosis His prognosis is guarded. He has multiple risk factors for continued thromboembolic disease to include suspected paroxysmal atrial fibrillation, recent CVA, patent foramen ovale, positive HIT, peripheral artery disease, known pulmonary embolus, bilateral VTE and questionable hypercoagulable state. He is also at risk for bleeding due to the need for anticoagulation as well as small hemorrhagic component to last CVA. Per neurology he has a 15-20% risk of bleeding on anticoagulation due to his recent stroke with hemorrhagic component. . Code Status: No Code Plan PLAN: Legal decision maker: Patient at this time cannot express himself clearly and is allowing his to be the primary decision maker. He is able to listen and signal with nodding his agreement or disagreement. At this time would recommend shared decision making. Goals: Would like to consider rehabilitation as he now appears to be improving slightly. CODE STATUS: DNR SYMPTOMS: * Dyspnea: Patient is less dyspneic and now on nasal cannula, intermittently on room air. He has difficulty speaking, partially due to residual effects of a stroke and partially due to dyspnea. He is able to lie flat with minimal dyspnea at this time. * Edema: Likely related to his grade 1 diastolic dysfunction, prolonged hospital course and multiple procedures. He is improving with leg elevation and SCD use. * Weakness -had initially planned to go to [facility] but discharge was canceled secondary to severe dyspnea and pulmonary embolus. He will likely need rehabilitation once he is stabilized. PT and OT are following. At this time, patient's easy fatigability will limit his ability to participate in rehabilitation. OT is recommending skilled therapy at rehabilitation. PT signed off on 03/24 and is waiting for an order to resume treatment. Would recommend resuming PT. Palliative care will continue to follow the patient during hospital course as condition evolves, to assist patient/decision-maker with understanding of their medical conditions, weighing benefits/burdens of treatment options, for clarification of goals of treatment. Additionally will assist with any symptoms of palliative concern. . Attestation To help prompt me to consider important information that might be impacting today's encounter and assessment, information from prior notes written by myself or my colleagues may have been "brought forward" into today's note. My signature on this note, however, is an attestation that I personally performed the exam, history, and/or decision-making noted today, and, unless otherwise indicated, the interactions with patient, family, and staff as well as the review of records all occurred today. I also attest that the listed assessment and stated plan reflect my best clinical judgment today based on the combination of historical information, prior notes, and today's exam/ interactions. When time spent is documented, it refers only to time spent today by the signer, or if indicated, combined time spent today by collaborating physician/nurse practitioner. . Joselin Balbuena Mar 28, 2017 15:38
[2017-03-28] MEDS: predniSONE 20 MG TAB PO SCH (17:32)
--- NOTE | 2017-03-28 19:01 | HHI.PR ---
Subjective Remarks ALERT NO SOB VSS Objective Vital Signs Date Time Temp Pulse Resp B/P (MAP) Pulse Ox O2 Delivery O2 Flow Rate FiO2 03/28/17 16:00 96.5 73 20 97/54 (68) 93 03/28/17 12:00 97.3 83 20 90/57 (68) 91 03/28/17 10:00 85 03/28/17 08:00 96 Nasal Cannula 3.00 21 03/28/17 08:00 95.6 84 20 114/75 (88) 95 03/28/17 07:45 94 Nasal Cannula 3.00 03/28/17 04:06 68 03/28/17 04:00 99.1 90 20 118/89 (99) 94 03/28/17 00:05 74 03/28/17 00:00 98.1 75 22 103/73 (83) 94 03/28/17 00:00 Nasal Cannula 3.00 03/27/17 20:05 77 03/27/17 20:00 Nasal Cannula 3.00 03/27/17 20:00 97.1 77 18 117/72 (87) 93 I/O 03/27/17 03/27/17 03/27/17 03/28/17 03/28/17 03/28/17 07:00 15:00 23:00 07:00 15:00 23:00 Intake Total 358 ml 200 ml 720 ml Output Total 1400 ml Balance 358 ml 200 ml 720 ml -1400 ml Intake Oral 358 ml 200 ml 720 ml Output Urine Total 1400 ml Bladder Scan Volume Amount 11 ml 625 ml # Voids 3 1 1 4 1 # Bowel Movements 3 2 1 3 0 Result Diagram: 03/28/1715 03/28/1715 Objective Remarks GENERAL: SKIN: Warm and dry. HEAD: Atraumatic. Normocephalic. EYES: Pupils equal and round. No scleral icterus. No injection or drainage. ENT: No nasal bleeding or discharge. Mucous membranes pink and moist. NECK: Trachea midline. No JVD. CARDIOVASCULAR: Regular rate and rhythm. RESPIRATORY: No accessory muscle use. Clear to auscultation. Breath sounds equal bilaterally. GASTROINTESTINAL: Abdomen soft, non-tender, nondistended. Hepatic and splenic margins not palpable. MUSCULOSKELETAL: Extremities without clubbing, cyanosis, or edema. No obvious deformities. NEUROLOGICAL: Awake and alert. No obvious cranial nerve deficits. Motor grossly within normal limits. Five out of 5 muscle strength in the arms and legs. Normal speech. PSYCHIATRIC: Appropriate mood and affect; insight and judgment normal. GENERAL: SKIN: Warm and dry. HEAD: Atraumatic. Normocephalic. EYES: Pupils equal and round. No scleral icterus. No injection or drainage. ENT: No nasal bleeding or discharge. Mucous membranes pink and moist. NECK: Trachea midline. No JVD. CARDIOVASCULAR: Regular rate and rhythm. RESPIRATORY: No accessory muscle use. Clear to auscultation. Breath sounds equal bilaterally. GASTROINTESTINAL: Abdomen soft, non-tender, nondistended. Hepatic and splenic margins not palpable. MUSCULOSKELETAL: Extremities without clubbing, cyanosis, or edema. No obvious deformities. NEUROLOGICAL: Awake and alert. No obvious cranial nerve deficits. Motor grossly within normal limits. Five out of 5 muscle strength in the arms and legs. Normal speech. PSYCHIATRIC: Appropriate mood and affect; insight and judgment normal. Assessment and Plan Assessment and Plan ? BRONCHIAL ASTHMA, now stable PVD s/p CVA ACUTE PE PLAN ANTICOAGULATE IF OK WITH NEURO O2 NEEDED PRN ALBUTEROL INREASE ACTIVITY Krysta,Krysta Ontiveros MD Mar 28, 2017 19:01
[2017-03-28] MEDS: ATORVASTATIN 80 MG TAB PO SCH (20:00)
[2017-03-28] MEDS: MONTELUKAST SODIUM 10 MG TAB PO SCH (20:00)
[2017-03-28] MEDS ORDERED: SODIUM CHLORID 0.9% 500 ML INJ 500 ML IV ONE (20:30)
[2017-03-29] VITALS (12 sets, daily range): BP systolic 99–115; BP diastolic 57–77; PULSE 59–97; RESP 14–21; TEMP 91.7–98.5; O2SAT 92–96
[2017-03-29 05:51] LABS: HEMATOCRIT 42.9 % (39.0-51.0); HEMOGLOBIN 14.1 GM/DL (13.0-17.0); MEAN CELL VOLUME 85.6 FL (80.0-100.0); MEAN CORPUSCULAR HEMOGLOBIN 28.1 PG (27.0-34.0); MEAN CORPUSCULAR HGB CONC 32.8 % (32.0-36.0); MEAN PLATELET VOLUME 9.5 FL (7.0-11.0); PLATELET COUNT 87 TH/MM3 (150-450); RED BLOOD COUNT 5.01 MIL/MM3 (4.50-5.90); RED CELL DISTRIBUTION WIDTH 15.3 % (11.6-17.2); WHITE BLOOD COUNT 18.7 TH/MM3 (4.0-11.0)
[2017-03-29 06:14] LABS: BICARBONATE 21.5 MEQ/L (21.0-32.0); CALCIUM 7.9 MG/DL (8.5-10.1); CREATININE 1.13 MG/DL (0.60-1.30)
[2017-03-29] MEDS: MULTIVITAMIN TAB PO SCH (08:55)
[2017-03-29] MEDS: METOPROLOL TARTRATE 50 MG TAB PO SCH ×2 (08:55→21:19)
[2017-03-29] MEDS: DULoxetine HCl DR 60 MG CAP PO SCH (08:55)
[2017-03-29] MEDS: predniSONE 20 MG TAB PO SCH (08:56)
[2017-03-29] MEDS: FINASTERIDE 5 MG TAB PO SCH (08:56)
[2017-03-29] MEDS: ASPIRIN 81 MG CHEW TAB CHEW SCH (08:56)
[2017-03-29] MEDS: PANTOPRAZOLE SOD 40 MG DELAYED RELEASE TAB PO SCH (08:56)
[2017-03-29] MEDS: AMIODARONE 200 MG TAB PO SCH (08:56)
[2017-03-29] MEDS: GABAPENTIN 300 MG CAP PO SCH ×2 (08:56→21:19)
[2017-03-29] MEDS: SODIUM CHLORIDE 0.9% FLUSH 10 ML FLUSH IV FLUSH SCH ×2 (09:00→21:18)
[2017-03-29] MEDS: LISINOPRIL 10 MG TAB PO SCH (09:00)
[2017-03-29] MEDS: FLUTICASONE 200 MCG/VILANTEROL 25 MCG INHALER INH SCH (09:00)
--- NOTE | 2017-03-29 09:03 | HHI.PR ---
Subjective Remarks AFIB CONFIRMED BY DR CARMEN one or two strips antiphospholidid up slightly dvt some HIT Objective Vital Signs Date Time Temp Pulse Resp B/P (MAP) Pulse Ox O2 Delivery O2 Flow Rate FiO2 03/29/17 08:22 98.1 64 16 113/67 (82) 95 03/29/17 04:08 59 03/29/17 04:00 98.0 66 16 103/72 (82) 94 03/29/17 00:11 68 03/29/17 00:00 98.1 66 18 106/57 (73) 94 03/28/17 20:06 85 03/28/17 20:00 97.4 76 18 102/63 (76) 93 03/28/17 19:30 Nasal Cannula 3.00 03/28/17 16:00 96.5 73 20 97/54 (68) 93 03/28/17 12:00 97.3 83 20 90/57 (68) 91 03/28/17 10:00 85 I/O 03/28/17 03/28/17 03/28/17 03/29/17 03/29/17 03/29/17 07:00 15:00 23:00 07:00 15:00 23:00 Intake Total 200 ml 720 ml 606 ml Output Total 1400 ml Balance 200 ml 720 ml -794 ml Intake Oral 200 ml 720 ml IV Total 606 ml Output Urine Total 1400 ml Bladder Scan Volume Amount 625 ml # Voids 4 1 3 # Bowel Movements 3 0 2 Result Diagram: 03/29/17 0510 03/29/17 0510 Objective Remarks left eye still slight turn in no diplopia must be old no nystag vff face sym t/o awake alert voice soft pupil = shows bilat thumbs not hmc but remembers moves bue well wiggles bilat feet well and cam lift right knee off bed some not so great with left Assessment and Plan Assessment and Plan imp bilat cva old left cbllr new r cbllr with some blood in it new r parietal and left parietal left vert dom and ? if origin stenosis check cta check holter normally i would coumadinze but there is a hemorrhagic sign component to the r cbllr infarct so will wait few weeks does he need to be on asa and effient or could he dc later with blood in cbllm preferred oob need to watch his neuro exam with the r cbllr infarct 03/15/17 overall stable watch lle for some weakness vs post op pain mri last pm stable and could go to floor tomorrow if stable asa 81 ok no other blodd thinners but ini future will do anticoagulation as o/p fu holter cta left vert origin nl 03/21/17 stable neuro bilat cva ? afib cards to review tele strip dvt cta neck neg vert origin dz for filter antiph lipdi ab slight inc heme on case he has a mod amt blood in that r cbllr cva asa on sq hep now i had scd order in on 03/14/17 /03/23/[address] stinson there is some hemorrhagic conmponent to the r cbllr infarct and some inc risk of more bleeding on coumadin also risk of cva with afib alsready had several we could consider starting coumadin will dw today a risk either way i dw pt this am 03/24/17 pe saddle yest on o2 doing well neurowise on anticoagulant now i dw nusu and heme inc risk of bleed maybe 20% in r cbllm but with all the clotting and afib and pe needs anticaog ------ 03/29/17 getting weaker in legs needs to get oob and PT and standing on iv hep now would not do any boluses with cva ow doing ok neurowise and should do well neurowise but needs to get oob i would dc steroids if not absolutely needed considering his le weakness Lupillo Chou MD Mar 29, 2017 09:03
[2017-03-29] MEDS: HEPARIN-D5W 25,000 U/250 ML 250 ML IV PRN (12:44)
[2017-03-29] MEDS ORDERED: MISCELLANEOUS PHARMACY INFORMATION OTHER ONE (14:00)
--- NOTE | 2017-03-29 14:27 | HHI.FPPN ---
Subjective Remarks Patient seen and examined this morning by medical team. No acute events reported overnight per nursing staff. Patient's vital signs remained within normal limits with 30 L via nasal cannula. Patient's is at the bedside who is requesting increased speech therapy time to assist with her husbands recovery. Currently the patient has no complaints. He denies any fevers, chills , shortness of breath, chest pain, NVD, vomiting, or calf tenderness. (Lv Ordaz MD R2) Objective Vitals Vital Signs Date Time Temp Pulse Resp B/P (MAP) Pulse Ox O2 Delivery O2 Flow Rate FiO2 03/29/17 12:01 97.3 92 16 99/68 (78) 92 03/29/17 10:06 95 Nasal Cannula 3.00 03/29/17 08:22 98.1 64 16 113/67 (82) 95 03/29/17 04:08 59 03/29/17 04:00 98.0 66 16 103/72 (82) 94 03/29/17 00:11 68 03/29/17 00:00 98.1 66 18 106/57 (73) 94 03/28/17 20:06 85 03/28/17 20:00 97.4 76 18 102/63 (76) 93 03/28/17 19:30 Nasal Cannula 3.00 03/28/17 16:00 96.5 73 20 97/54 (68) 93 I/O 03/28/17 03/28/17 03/28/17 03/29/17 03/29/17 03/29/17 07:00 15:00 23:00 07:00 15:00 23:00 Intake Total 200 ml 720 ml 1306 ml Output Total 1400 ml 1380 ml Balance 200 ml 720 ml -94 ml -1380 ml Intake Oral 200 ml 720 ml 700 ml IV Total 606 ml Output Urine Total 1400 ml 1380 ml Bladder Scan Volume Amount 625 ml 850 ml # Voids 4 1 3 # Bowel Movements 3 0 2 1 (Lv Ordaz MD R2) Result Diagram: 03/29/17 0510 03/29/17 0510 Objective Remarks GENERAL: Elderly gentleman lying in bed sleeping upon entering the room in NAD. Significant other at the bedside. RESPIRATORY: CTAB, currently on 3L nasal cannula with oxygen saturation of 96%. No increased work of breathing. CARDIOVASCULAR: RRR, no m/r/g. Radial and DP pulses 2+ and symmetric bilaterally. Brisk capillary refill. ABDOMEN: Soft, nondistended, nontender with BS in all 4 quadrants. No masses appreciated. MUSCULOSKELETAL: No edema appreciated. BL calf tenderness, negative Brenna's bilaterally. No swelling or skin changes. 2+ DP and PT pulses BL. LLE: Femoropopliteal bypass incision sites, CDI. Pulses 2+ b/l. Sensation intact b/l. Moving toes and legs b/l. SKIN: Essentially clear with no significant rash or lesions. Adequate skin turgor. NEUROLOGICAL: Continued slurred speech, stable from prior exam. Otherwise CN 2- 12 grossly intact. Patient does attempt to communicate verbally, however he primarily communicates through hand motions and yes/no questions. Sensation intact throughout. Procedures tPA therapy for thrombolysis of left SFA 03/08-03/09 (Lv Ordaz MD R2) A/P Assessment and Plan 76-year-old male s/p Fempop bypass surgery on 03/09 subsequently found to have acute right cerebellar infarct on 03/13, b/l DVTs on 03/20 s/p IVC filter placed 03/21, and saddle PE on 03/23. Patient transferred to [facility] on 03/23 for further monitoring. Patient is currently stable. Discharge Planning Pending on clearance for oral anti-coagulation Palliative care consulted to verify goals PT/OT/speech at rehab (Lv Ordaz MD R2) Attending Attestation Patient seen and examined. Case reviewed and discussed with the resident team. Agree with plan of care as discussed with me and documented in the resident note. His pointed out how much improvement he has made recently. He is eating independently, sitting up in bed and speaking more. He has been accepted at [facility] and will see what is holding up that transfer. He and his are both eager to get rehab and improve (Arianne Tang MD) Problem List: (1) Hypercoagulopathy ICD Codes: D68.59 - Other primary thrombophilia Status: Acute Plan: -Hematology consulted, appreciated recommendations -Discontinue Heparin gtt (03/27/17-03/29/17) due to decreasing platelet counts -Resume Argatroban 03/29/17 -SHAUN noted to be negative Tumor markers ordered for suspected metastasis AFP, CA125, PSA wnl CA 19-9 elevated at 171.1 and CEA elevated at 5.3 CT Abd/pelvis w/o contrast demonstrated significant prostatic enlargement which appears to be causing a degree of bladder outlet obstruction. No evidence of inflammatory process within the abdomen or pelvis, no evidence of mass or adenopathy. -Hypercoagulable workup pending -Protein C, AT III high, however not clinically significant. -Antiphospholipid IgM antibody. 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 -Neurology and Hematology consulted, plans as above -Currently on 3L NC with saturation in the mid 90s. 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 Currently on Argatroban 250mg IV due to saddle embolus and afib. He does have approximately 15-20% chance of worsening intracranial hemorrhage on systemic anticoagulation. -Continue Aspirin, Effient discontinued -CT previously recommended 04/01/17 -Neurologically stable -Neurosurgery consulted, recs appreciated -CT head reviewed, nonoperative mgt -Palliative care consulted to assist with medical goals -Neurochecks q4h -Continue PT/OT/ST, patient encouraged to participate in therapy to assist with discharge planning Previous Workup: Patient with slurred speech on 03/[address] and MRI showing R cerebellar edema and infarction consistent with CVA. -Head CT: 3.5 x 3.6 cm low attenuation area in the right cerebellar hemisphere area most characteristic of edema which could be secondary to underlying mass or infarction. Second smaller focal peripheral area of decreased attenuation involving the right parietal occipital watershed region concerning for edema as well. Further evaluation with MRI recommended. -Brain MRI: Proximally 5cm infarct of the right cerebellar hemisphere with small punctate infarcts in the right occipital lobe and left parietal lobe. Remote lacunar infarcts of the right basal ganglia and cerebellum. -Head MRA: Patient within normal limits for age -Neck MRA: No significant stenosis in the carotid arteries. Left vertebral artery is dominant. -Neck CTA: Minimal calcific plaquing nonstenotic bilateral carotid bulbs and initial segment of the right internal carotid. -Repeat Brain MRI: no significant change in the appearance of large acute infarction involving the right cerebellum as well as the much smaller acute infarctions involving the right occipital lobe and left high parietal cortex. -Repeat head CT: Stable right cerebellar infarction, fourth ventricle open, no signs of hydrocephalus (4) Paroxysmal atrial fibrillation ICD Codes: I48.0 - Paroxysmal atrial fibrillation Status: Acute Plan: -Cardiology consulted, recs appreciated. -SEAN: atrial septal aneurysm and PFO. PFO closure not recommended. Otherwise , unremarkable. -Paroxysmal atrial fibrillation noted 03/20 -Continue metoprolol 50mg PO q12hr and Amiodarone 200mg PO daily. -Continue anticoagulation as above. (5) DVT (deep venous thrombosis) ICD Codes: I82.409 - Acute embolism and thrombosis of unspecified deep veins of unspecified lower extremity Status: Acute Plan: -LE US 03/20/17: Positive venous Doppler bilaterally above the knee on the R and below the knee on the L. -IR consulted, IVC filter placed 03/20/17, abdominal X-ray 03/23 demonstrated stable position of IVC filter over L1 and L2 -Anticoagulation as above. (6) Abdominal mass ICD Codes: R19.00 - Intra-abdominal and pelvic swelling, mass and lump, unspecified site Plan: Most likely hematoma from Lovenox SC shots Abdominal US unremarkable (7) Pneumonia ICD Codes: J18.9 - Pneumonia, unspecified organism Plan: CXR 03/17 demonstrated consolidation with infrahilar region on the right, possible aspiration Pneumonia -Pulmonology previously consulted, appreciate recommendations -Start Prednisone 20mg daily -Discontinued Methylprednisolone 80mg IV push q8hr Discontinued Vancomycin, pharmacy consulted for dosing (03/17-03/22) Discontinued Zosyn 4.5 GM IV q6h (03/17-03/22) (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 -Thoracic aneurysm aneurysm will be managed medically and with close follow- up for imaging -Goal systolic blood pressure of less than 120 (10) Superficial femoral artery occlusion ICD Codes: I70.209 - Unspecified atherosclerosis of [place] arteries of extremities, unspecified extremity Status: Resolved Plan: -Patient status post left femoropopliteal bypass femoral endarterectomy popliteal endarterectomy and patch on 03/09 -Patient w/ hx of PAD (11) HTN (hypertension) ICD Codes: I10 - Essential (primary) hypertension Status: Chronic Plan: -Continue lisinopril 10 mg daily, metoprolol tartrate 50 mg PO BID -Vasotec 1.25 mg IV when necessary for systolic blood pressure greater than 160 , diastolic blood pressure greater than 90 -Goal systolic blood pressure of less than 120 due to thoracic aortic aneurysm (12) CAD (coronary artery disease) ICD Codes: I25.10 - Atherosclerotic heart disease of [place] coronary artery without angina pectoris Status: Chronic Plan: -Patient with known CAD, status post coronary stents placed in 2007 -Continue home atorvastatin 80 mg at night, ASA 81 mg daily (13) BPH (benign prostatic hyperplasia) ICD Codes: N40.0 - Benign prostatic hyperplasia without lower urinary tract symptoms Plan: Continue home finasteride 5 mg by mouth daily Will do bladder scan looking for residual urine after voiding Straight cath if needed (14) Diarrhea ICD Codes: R19.7 - Diarrhea, unspecified Plan: Improving Held bowel regimen C.diff PCR negative (15) FEN Plan: Diet: Heart healthy diet with nectar thickened liquids Oral fluids only Replete electrolytes as needed Neurochecks q4h Zofran as needed for nausea Tylenol as needed for fever Protonix for GI prophylaxis (Lv Ordaz MD R2) Problem Qualifiers (1) DVT (deep venous thrombosis): (2) Pneumonia: (3) HTN (hypertension): Qualified Codes: I10 - Essential (primary) hypertension (4) CAD (coronary artery disease): Qualified Codes: I25.10 - Atherosclerotic heart disease of [place] coronary artery without angina pectoris Lv Ordaz MD R2 Mar 29, 2017 14:27 Arianne Tang MD Mar 31, 2017 13:11
--- NOTE | 2017-03-29 15:30 | PD.ONC.PN ---
Subjective Subjective Remarks Afebrile Pt remains non-verbal Pt's spouse upset that he has not gotten more speech therapy since he has been in the hospital No bleeding Denies headache Objective Data Date Time Temp Pulse Resp B/P (MAP) Pulse Ox O2 Delivery O2 Flow Rate FiO2 03/29/17 12:01 97.3 92 16 99/68 (78) 92 03/29/17 10:06 95 Nasal Cannula 3.00 03/29/17 08:22 98.1 64 16 113/67 (82) 95 03/29/17 08:00 96 Nasal Cannula 3.00 21 03/29/17 04:08 59 03/29/17 04:00 98.0 66 16 103/72 (82) 94 03/29/17 00:11 68 03/29/17 00:00 98.1 66 18 106/57 (73) 94 03/28/17 20:06 85 03/28/17 20:00 97.4 76 18 102/63 (76) 93 03/28/17 19:30 Nasal Cannula 3.00 03/28/17 16:00 96.5 73 20 97/54 (68) 93 03/29/17 03/29/17 03/29/17 07:00 15:00 23:00 Output Total 1380 ml Balance -1380 ml Result Diagram: 03/29/17 0510 03/29/17 0510 Laboratory Results Laboratory Tests Test 03/28/17 17:28 03/28/17 19:57 03/29/17 05:10 03/29/17 05:17 Activated Partial Thromboplast Time 152.2 SEC 86.8 SEC 96.1 SEC White Blood Count 18.7 TH/MM3 Red Blood Count 5.01 MIL/MM3 Hemoglobin 14.1 GM/DL Hematocrit 42.9 % Mean Corpuscular Volume 85.6 FL Mean Corpuscular Hemoglobin 28.1 PG Mean Corpuscular Hemoglobin Concent 32.8 % Red Cell Distribution Width 15.3 % Platelet Count 87 TH/MM3 Mean Platelet Volume 9.5 FL Blood Urea Nitrogen 67 MG/DL Creatinine 1.13 MG/DL Random Glucose 100 MG/DL Calcium Level 7.9 MG/DL Sodium Level 133 MEQ/L Potassium Level 6.3 MEQ/L Chloride Level 103 MEQ/L Carbon Dioxide Level 21.5 MEQ/L Anion Gap 9 MEQ/L Estimat Glomerular Filtration Rate 63 ML/MIN Test 03/29/17 09:25 03/29/17 13:30 Activated Partial Thromboplast Time 93.0 SEC 43.4 SEC Culture Results Microbiology Date/Time Source Procedure Growth Status 03/27/17 11:25 Stool Stool Stool Occult Blood (ASTER) - Final HEMOCCULT NEGATIVE Complete Administered Medications Medications (Trade) Dose Ordered Sig/Lizbeth Route PRN Reason Start Time Stop Time Status Last Admin Dose Admin Sodium Chloride (NS Flush) 2 ml UNSCH PRN IV FLUSH FLUSH AFTER USING IV ACCESS 03/05/17 22:00 03/23/17 05:34 Sodium Chloride (NS Flush) 2 ml BID IV FLUSH 03/06/17 09:00 03/29/17 09:00 Atorvastatin Calcium (Lipitor) 80 mg HS PO 03/05/17 22:15 03/28/17 20:00 Finasteride (Proscar) 5 mg DAILY PO 03/06/17 09:00 03/29/17 08:56 Fluticasone/ Vilanterol (Breo Ellipta 200-25 Inh) 1 puff DAILY INH 03/06/17 09:00 03/29/17 09:00 Gabapentin (Neurontin) 300 mg BID PO 03/05/17 22:15 03/29/17 08:56 Lisinopril (Prinivil) 10 mg DAILY PO 03/06/17 09:00 03/29/17 09:00 Prasugrel (Effient) 10 mg DAILY PO 03/06/17 09:00 Future Hold 03/12/17 08:51 Pantoprazole Sodium (Protonix) 40 mg DAILY PO 03/06/17 09:00 03/29/17 08:56 Multivitamins (Theragran) 1 tab DAILY PO 03/06/17 09:00 03/29/17 08:55 Albuterol Sulfate (Albuterol Neb) 2.5 mg Q4HR WHILE AWAKE NEB PRN NEB SHORTNESS OF BREATH 03/05/17 22:15 03/28/17 07:42 Ondansetron HCl (Zofran Inj) 4 mg Q6HR PRN IV PUSH NAUSEA OR VOMITING 03/05/17 22:15 03/17/17 20:32 Acetaminophen (Tylenol) 325 mg Q4H PRN PO FEVER 03/05/17 22:15 03/11/17 00:55 Metoprolol Tartrate (Lopressor) 50 mg Q12HR PO 03/06/17 10:00 03/29/17 08:55 Montelukast Sodium (Singulair) 10 mg HS PO 03/06/17 21:00 03/28/17 20:00 Morphine Sulfate (Morphine Inj) 4 mg Q3H PRN IV PUSH 6-10 03/09/17 16:30 03/13/17 09:57 Oxycodone/ Acetaminophen (Percocet 5-325 Mg) 1 tab Q4H PRN PO 3-5 03/09/17 16:30 03/22/17 00:43 Lactulose (Lactulose Liq) 30 ml DAILY PRN PO SEVERE CONSITIPATION 03/14/17 12:30 03/14/17 15:23 Aspirin (Aspirin Chew) 162 mg DAILY CHEW 03/19/17 09:00 03/29/17 08:56 Duloxetine HCl (Cymbalta Dr) 60 mg DAILY PO 03/23/17 09:00 03/29/17 08:55 Amiodarone HCl (Cordarone) 200 mg DAILY PO 03/23/17 09:00 03/29/17 08:56 Miscellaneous Information Patient in critical care unit? Ass... [id number] .XX 03/23/17 21:15 03/23/17 21:15 Prednisone (Deltasone) 20 mg DAILY PO 03/28/17 11:00 03/29/17 08:56 Objective Remarks GENERAL: Elderly male, resting in bed in no obvious distress. SKIN: Warm and dry. HEAD: Normocephalic. EYES: No injection or drainage. NECK: Supple, trachea midline. CARDIOVASCULAR: Regular rate and rhythm. RESPIRATORY: Anterior laguna clear. GASTROINTESTINAL: Abdomen soft, non-tender, nondistended. EXTREMITIES: No cyanosis, or edema. NEUROLOGICAL: Awake. Following commands. Able to move extremities. Assessment/Plan Assessment 76y/o male with h/o PAD admitted on 03/05/17 with dyspnea. History: --evaluated by vascular surgery for worsening PVD and superficial femoral artery occlusion --s/p tpa lysis and then femoral-popliteal bypass. --then developed right cerebellar ischemic infarct with punctate infarcts of the right occipital and left parietal lobes. --bc of the minimal degree of ICH, ac was placed on hold --LE U/S showed DVT bilaterally --had IVC filter placement on 03/21/17 Plan 1. Noted platelets decreasing on heparin drip. As SHAUN negative, he does not have a heparin allergy, however he tolerates argatroban better in regards to the thrombocytopenia. 2. Switch heparin to argatroban drip. 3. Will switch to oral anticoagulation when cleared by neuro 4. Monitor CBC. 5. If platelets improved tomorrow and no bleeding, OK for transfer to [facility] from hematology standpoint as long as they will accept pt on drip. Attending Statement The exam, history, and the medical decision-making described in the above note were completed with the assistance of the mid-level provider. I reviewed and agree with the findings presented. I attest that I had a [id number] encounter with the patient on the same day, and personally performed and documented my assessment and findings in the medical record. 76 yoM wiht arterial thrombosis, venous thrombosis. CVA with hemorrhage. Risks for anticoaguation include rebleed with worsening neurologic status, however with extensive VTE including saddle PE after placement of IVC filter benefits outweight risks of clot. This has been discussed with his and she is amenable with proceeding with anticoagulation and understnads the risks. 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 Platelets falling when restarted on heparin. Will start argatroban. Yolis Blanco Mar 29, 2017 15:30 Cheryle Coleman MD Mar 30, 2017 07:53
--- NOTE | 2017-03-29 16:43 | HHI.HCPN ---
Reason for visit a. To assist with evaluation and management of symptoms including: Dyspnea, weakness b. To assist medical decision maker(s) with: better understanding of current medical conditions; weighing benefits/burdens of medical treatment options; making medical treatment decisions. Subjective/Interval History Sitting up in bed today, feeding him macaroni and cheese. He is awake and far more alert. His states that he ate better last night and is eating well today. He remains minimally verbal. Per his , the strategic partnership representative from [facility] saw him today and states they are ready for him as soon as he can be discharged. is looking forward to getting more therapy for him. Per neurology's note, they are encouraging increased activity. There remains some confusion about anticoagulation. Neurology has been recommending anticoagulation since March 24 and patient has been on argatroban or heparin since that time. He continues to develop thrombocytopenia with IV heparin, however SHAUN indicates he does not have a heparin allergy. He tolerates argatroban better, but needs to be transitioned to Coumadin at some time. Calls have been placed to hematology and Dr. Lv Ordaz of [facility] to clarify in preparation for transition to rehab. Per my discussion with Dr. Lv Ordaz, there are 2 remaining issues to clear for discharge. There is some current concern that the SHAUN might need to be repeated to verify heparin allergy due to his severe decline in platelets with IV heparin administration. Family medicine plans to confirm with Dr. Chou, the neurologist, the plan for initiating Coumadin for long-term therapy due to his hypercoagulable state, considering the hemorrhagic component to his CVA. The second issue is regarding his urinary retention. Most recent bladder scan done 03/29 at 8:45 indicates 850 mL in the bladder. Prior to exposing the patient to additional risk of indwelling Rodriguez catheter, he would like to increase patient mobility enough to stand and try to void to improve bladder emptying. If that is not successful, patient may need urology evaluation. Also discussed was the elevated tumor marker CA 19-9, which was taken due to his hypercoagulable state and concern for an underlying metastatic process. During hospitalization the patient has been extensively imaged and no indication of malignancy or metastasis has been seen. Urinalysis on 03/17 did show moderate hematuria and per our discussion, family medicine may consider repeating urinalysis to evaluate for continued hematuria. . . Family/friend interactions is at bedside assisting patient with eating. Discussed transition to rehab with her as well as anticoagulation. She is concerned about his transportation home to [place]. They flew to [place] and will need to make arrangements with their return airline for additional services, i.e. wheelchair , etc. . Advance Directives Living Will: Never completed Health Care Surrogate: Never completed Durable Power of Application Support Technician: Never completed Objective Vital Signs Date Time Temp Pulse Resp B/P (MAP) Pulse Ox O2 Delivery O2 Flow Rate FiO2 03/29/17 12:01 97.3 92 16 99/68 (78) 92 03/29/17 10:06 95 Nasal Cannula 3.00 03/29/17 08:22 98.1 64 16 113/67 (82) 95 03/29/17 08:00 96 Nasal Cannula 3.00 21 03/29/17 04:08 59 03/29/17 04:00 98.0 66 16 103/72 (82) 94 03/29/17 00:11 68 03/29/17 00:00 98.1 66 18 106/57 (73) 94 03/28/17 20:06 85 03/28/17 20:00 97.4 76 18 102/63 (76) 93 03/28/17 19:30 Nasal Cannula 3.00 Intake & Output 03/29/17 03/29/17 07:00 19:00 Intake Total 606 ml Output Total 1380 ml Balance 606 ml -1380 ml IV Total 606 ml Output Urine Total 1380 ml Bladder Scan Volume Amount 850 ml # Voids 3 # Bowel Movements 2 1 Physical Exam CONSTITUTIONAL/GENERAL: This is an adequately nourished patient, in no apparent distress. TUBES/LINES/DRAINS: PIV 2 SKIN: No jaundice, rashes, or lesions. Ecchymoses on upper extremities. No wounds seen anteriorly. Skin temperature appropriate. Not diaphoretic. NECK: Trachea midline. Supple, nontender. No palpable thyroid enlargement or nodularity. CARDIOVASCULAR: Regular rate and rhythm without murmurs, gallops, or rubs. No JVD. Peripheral pulses symmetric. RESPIRATORY/CHEST: Symmetric, unlabored respirations. Clear to auscultation. Breath sounds equal bilaterally. No wheezes, rales, or rhonchi. GASTROINTESTINAL: Abdomen soft, obese, right lower quadrant tenderness to palpation.. No hepato-splenomegaly, or palpable masses. No guarding. Bowel sounds present. GENITOURINARY: Positive bladder distention.. MUSCULOSKELETAL: Extremities without clubbing, cyanosis, or edema. No joint tenderness or effusion noted. No calf tenderness. No mottling or clubbing. NEUROLOGICAL: Awake, alert, partially aphasic, can speak one syllable at a time with great effort. Fatigues easily, PSYCHIATRIC: No obvious anxiety/depression. no apparent hallucinations or other psychotic thought process. . Diagnostic Tests Laboratory Laboratory Tests Test 03/27/17 09:40 03/27/17 11:25 03/27/17 13:45 03/28/17 00:11 White Blood Count 19.7 TH/MM3 (4.0-11.0) Red Blood Count 5.39 MIL/MM3 (4.50-5.90) Hemoglobin 15.3 GM/DL (13.0-17.0) Hematocrit 46.6 % (39.0-51.0) Mean Corpuscular Volume 86.6 FL (80.0-100.0) Mean Corpuscular Hemoglobin 28.4 PG (27.0-34.0) Mean Corpuscular Hemoglobin Concent 32.9 % (32.0-36.0) Red Cell Distribution Width 15.3 % (11.6-17.2) Platelet Count 108 TH/MM3 (150-450) Mean Platelet Volume 9.1 FL (7.0-11.0) Neutrophils (%) (Auto) 92.4 % (16.0-70.0) Lymphocytes (%) (Auto) 3.0 % (9.0-44.0) Monocytes (%) (Auto) 4.5 % (0.0-8.0) Eosinophils (%) (Auto) 0.1 % (0.0-4.0) Basophils (%) (Auto) 0.0 % (0.0-2.0) Neutrophils # (Auto) 18.3 TH/MM3 (1.8-7.7) Lymphocytes # (Auto) 0.6 TH/MM3 (1.0-4.8) Monocytes # (Auto) 0.9 TH/MM3 (0-0.9) Eosinophils # (Auto) 0.0 TH/MM3 (0-0.4) Basophils # (Auto) 0.0 TH/MM3 (0-0.2) CBC Comment DIFF FINAL Differential Comment Activated Partial Thromboplast Time 64.1 SEC (24.3-30.1) 40.2 SEC (24.3-30.1) 264.9 SEC (24.3-30.1) Blood Urea Nitrogen 74 MG/DL (7-18) Creatinine 1.29 MG/DL (0.60-1.30) Random Glucose 110 MG/DL (74-106) Calcium Level 8.4 MG/DL (8.5-10.1) Sodium Level 135 MEQ/L (136-145) Potassium Level 5.1 MEQ/L (3.5-5.1) Chloride Level 104 MEQ/L (98-107) Carbon Dioxide Level 21.1 MEQ/L (21.0-32.0) Anion Gap 10 MEQ/L (5-15) Estimat Glomerular Filtration Rate 54 ML/MIN (>89) Stool C. difficile Toxin (PCR) NEGATIVE (NEGATIVE) Stl C. difficile Toxin Epiderm 027 PRESUMPTIVE NEGATIVE Prothrombin Time 16.1 SEC (9.8-11.6) Prothromb Time International Ratio 1.6 RATIO Test 03/28/17 04:20 03/28/17 08:15 03/28/17 17:28 03/28/17 19:57 Activated Partial Thromboplast Time 96.1 SEC (24.3-30.1) 35.9 SEC (24.3-30.1) 152.2 SEC (24.3-30.1) 86.8 SEC (24.3-30.1) White Blood Count 19.1 TH/MM3 (4.0-11.0) Red Blood Count 5.28 MIL/MM3 (4.50-5.90) Hemoglobin 15.1 GM/DL (13.0-17.0) Hematocrit 45.5 % (39.0-51.0) Mean Corpuscular Volume 86.2 FL (80.0-100.0) Mean Corpuscular Hemoglobin 28.6 PG (27.0-34.0) Mean Corpuscular Hemoglobin Concent 33.2 % (32.0-36.0) Red Cell Distribution Width 15.6 % (11.6-17.2) Platelet Count 104 TH/MM3 (150-450) Mean Platelet Volume 9.6 FL (7.0-11.0) Fibrinogen 139 mg/dL (227-377) Blood Urea Nitrogen 73 MG/DL (7-18) Creatinine 1.32 MG/DL (0.60-1.30) Random Glucose 94 MG/DL (74-106) Calcium Level 8.3 MG/DL (8.5-10.1) Sodium Level 134 MEQ/L (136-145) Potassium Level 5.3 MEQ/L (3.5-5.1) Chloride Level 103 MEQ/L (98-107) Carbon Dioxide Level 20.5 MEQ/L (21.0-32.0) Anion Gap 11 MEQ/L (5-15) Estimat Glomerular Filtration Rate 52 ML/MIN (>89) Test 03/29/17 05:10 03/29/17 05:17 03/29/17 09:25 03/29/17 13:30 White Blood Count 18.7 TH/MM3 (4.0-11.0) Red Blood Count 5.01 MIL/MM3 (4.50-5.90) Hemoglobin 14.1 GM/DL (13.0-17.0) Hematocrit 42.9 % (39.0-51.0) Mean Corpuscular Volume 85.6 FL (80.0-100.0) Mean Corpuscular Hemoglobin 28.1 PG (27.0-34.0) Mean Corpuscular Hemoglobin Concent 32.8 % (32.0-36.0) Red Cell Distribution Width 15.3 % (11.6-17.2) Platelet Count 87 TH/MM3 (150-450) Mean Platelet Volume 9.5 FL (7.0-11.0) Blood Urea Nitrogen 67 MG/DL (7-18) Creatinine 1.13 MG/DL (0.60-1.30) Random Glucose 100 MG/DL (74-106) Calcium Level 7.9 MG/DL (8.5-10.1) Sodium Level 133 MEQ/L (136-145) Potassium Level 6.3 MEQ/L (3.5-5.1) Chloride Level 103 MEQ/L (98-107) Carbon Dioxide Level 21.5 MEQ/L (21.0-32.0) Anion Gap 9 MEQ/L (5-15) Estimat Glomerular Filtration Rate 63 ML/MIN (>89) Activated Partial Thromboplast Time 96.1 SEC (24.3-30.1) 93.0 SEC (24.3-30.1) 43.4 SEC (24.3-30.1) . Result Diagram: 03/29/17 0510 03/29/17 0510 Microbiology Microbiology Date/Time Source Procedure Growth Status 03/27/17 11:25 Stool Stool Stool Occult Blood (ASTER) - Final HEMOCCULT NEGATIVE Complete Imaging Last Impressions Soft Tissue Ultrasound 03/28/17 0000 Signed Impressions: Service Date/Time: Tuesday, March 28, 2017 10:02 - CONCLUSION: 1. No abnormality in the area of palpable concern. 2. Note is made of a distended urinary bladder. Adrian Perez Jr., MD Abdomen/Pelvis CT 03/26/17 0000 Signed Impressions: Service Date/Time: Sunday, March 26, 2017 13:04 - CONCLUSION: 1. Significant prostatic enlargement which appears to be causing a degree of bladder outlet obstruction.. 2. No evidence of inflammatory process within the abdomen or pelvis, no evidence of mass or adenopathy. No etiology seen for the patient's pulmonary embolus. Danni Vieira MD Renal Ultrasound 03/25/17 1205 Signed Impressions: Service Date/Time: Saturday, March 25, 2017 12:29 - CONCLUSION: Bilateral kidneys appear enlarged which is secondary to multiple bilateral large renal cysts. There is no evidence of hydronephrosis or obstructive uropathy. Lakhwinder Adams MD Chest X-Ray 03/23/17 0000 Signed Impressions: Service Date/Time: March 10:52 - CONCLUSION: 1. Developing lateral atelectatic changes above the left hemidiaphragm. Lungs are otherwise clear. 2. Stable degenerative changes of the dorsal spine. 3. Heart size is borderline but well compensated. Domingo Laura MD CT Angiography 03/23/17 0000 Signed Impressions: Service Date/Time: March 12:36 - CONCLUSION: 1. There is saddle embolus with clot seen in both the right and left central pulmonary arteries. There is fairly extensive thrombus evident. 2. 2.9 x 3.2 cm cyst within the liver. 3. Mild aneurysmal dilation of the ascending aorta and proximal arch Judah Nelson MD Abdomen X-Ray 03/23/17 0000 Signed Impressions: Service Date/Time: March 10:57 - CONCLUSION: 1. Radiographically benign abdomen. 2. Stable position of Vena-Tech type IVC filter projecting over the L1 and L2 vertebral bodies. 3. Degenerative changes of the thoracolumbar spine as described above. Domingo Laura MD IVC Filter Placement X-Ray 03/21/17 0000 Signed Impressions: Service Date/Time: Tuesday, March 21, 2017 11:48 - CONCLUSION: Uncomplicated inferior vena cava filter placement as above. Lupillo Arellano MD Lower Extremity Ultrasound 03/20/17 0000 Signed Impressions: Service Date/Time: Monday, March 20, 2017 14:25 - CONCLUSION: Positive venous Doppler bilaterally above the knee on the right and below the knee on the left. Seymour Nelson MD FACR Head CT 03/15/17 0800 Signed Impressions: Service Date/Time: Wednesday, March 15, 2017 08:11 - CONCLUSION: 1. Stable CT of the brain including prominent area of low-density in the right cerebellum could be an acute/subacute infarct. This is unchanged. 2. Old appearing small infarcts in the right parietal/occipital lobe and left cerebellum are stable. Bradley Simmons MD Neck CTA 03/14/17 0000 Signed Impressions: Service Date/Time: Tuesday, March 14, 2017 10:44 - CONCLUSION: Minimal calcific plaquing nonstenotic bilateral carotid bulbs and initial segment of the right internal carotid. Lakhwinder Adams MD Brain MRI 03/14/17 0000 Signed Impressions: Service Date/Time: Tuesday, March 14, 2017 19:56 - CONCLUSION: 1. No significant change in the appearance of large acute infarction involving the right cerebellum as well as the much smaller acute infarctions involving the right occipital lobe and left high parietal cortex. There is evidence of some hemorrhage within the right cerebellar infarct which is unchanged. 2. Scattered periventricular and subcortical white matter small vessel ischemic changes are noted bilaterally. 3. Old lacunar infarcts are noted within the bilateral basal ganglia and bilateral cerebellar hemispheres. Shai Thrasher MD Neck Magnetic Resonance Angiography [id number] Signed Impressions: Service Date/Time: Monday, March 13, 2017 21:58 - CONCLUSION: 1. No significant stenosis in the carotid arteries. Left vertebral artery is dominant. Adrián Caicedo MD Head Magnetic Resonance Angiography [id number] Signed Impressions: Service Date/Time: Monday, March 13, 2017 21:58 - CONCLUSION: 1. Patient within normal limits for age. Adrián Caicedo MD Lower Extremity Angiography 03/08/17 0000 Signed Impressions: Service Date/Time: Wednesday, March 08, 2017 13:02 - CONCLUSION: 1. Distal left above-knee popliteal artery occlusion with plaque and chronic thrombus extending to the distal SFA with mature genicular collaterals. Given the apparent chronicity of the findings, planned TPA thrombolysis was not performed. Donovan Baez MD Liver Ultrasound 03/07/17 0000 Signed Impressions: Service Date/Time: Tuesday, March 07, 2017 18:01 - CONCLUSION: 1. Multiple large right renal cysts. No hydronephrosis a very ductal dilatation. Cholecystectomy. Mild fatty liver. Adrián Caicedo MD Aorta w/Runoff CTA 03/06/17 0000 Signed Impressions: Service Date/Time: Tuesday, March 07, 2017 11:30 - CONCLUSION: 1. There is abrupt occlusion of the left superficial femoral at the adductor hiatus and extending down to the trifurcation. This appears possibly embolic as there is very little diffuse vascular disease. 2. Adequate inflow a variety. 3. Enlargement of the prostate. 4. Multiple renal cysts bilaterally. 5. Enlargement of the prostate. 6. Small bilateral inguinal hernias. Judah Nelson MD Aorta Ultrasound 03/06/17 0000 Signed Impressions: Service Date/Time: Monday, March 06, 2017 07:48 - CONCLUSION: 1. No abdominal aortic aneurysm. Size measurements are given above. Judah Nelson MD Carotid Artery Ultrasound 03/05/17 0000 Signed Impressions: Service Date/Time: Sunday, March 05, 2017 22:16 - CONCLUSION: 1. No hemodynamically significant stenosis in either carotid artery. 2. Nonvisualization right vertebral artery. Bradley Simmons MD Procedures 03/06-electroencephalogram 03/09-left femoropopliteal bypass with PTFE graft, popliteal endarterectomy and common femoral endarterectomy, external iliac endarterectomy. 03/16-transesophageal echocardiogram . 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 He was in the [employer] reserve for a short time. He has been to his for 13 years and has 4 children from a previous marriage. He worked as a computer systems technician and retired about 13 years ago. Spiritual: He is Bahai and would wish for a head filter tank tender helper visit for sacraments of this it. Legal: No issues noted. Ethical issues impacting care: No issues noted. . Important Contacts -Shruthi Gallagher Son Moreno Gallagher Daughter - Steph Aileen, [place] Daughter Marcela Michael, [place] Son - Conner Aileen, [place] . Prognosis His prognosis is guarded. He has multiple risk factors for continued thromboembolic disease to include suspected paroxysmal atrial fibrillation, recent CVA, patent foramen ovale, positive HIT, peripheral artery disease, known pulmonary embolus, bilateral VTE and questionable hypercoagulable state. He is also at risk for bleeding due to the need for anticoagulation as well as small hemorrhagic component to last CVA. Per neurology he has a 15-20% risk of bleeding on anticoagulation due to his recent stroke with hemorrhagic component. . Code Status: No Code Plan PLAN: Legal decision maker: Patient at this time cannot express himself clearly and is allowing his to be the primary decision maker. He is able to listen and signal with nodding his agreement or disagreement. At this time would recommend shared decision making. Goals: Would like to consider rehabilitation as he now appears to be improving slightly. CODE STATUS: DNR SYMPTOMS: * Dyspnea: Patient is less dyspneic and now on room air. He has difficulty speaking, partially due to residual effects of a stroke and partially due to dyspnea. He is able to lie flat with minimal dyspnea at this time. * Edema: Likely related to his grade 1 diastolic dysfunction, prolonged hospital course and multiple procedures. He is improving with leg elevation and SCD use. * Weakness -had initially planned to go to [facility] but discharge was canceled secondary to severe dyspnea and pulmonary embolus. [facility] has been following and now states that they are ready to accept him when he is ready for discharge. PT resumed services today and notes significant overall weakness recommending PT at rehab. Would benefit from conversion to oral anticoagulants to improve mobility capability. Palliative care will continue to follow the patient during hospital course as condition evolves, to assist patient/decision-maker with understanding of their medical conditions, weighing benefits/burdens of treatment options, for clarification of goals of treatment. Additionally will assist with any symptoms of palliative concern. . Attestation To help prompt me to consider important information that might be impacting today's encounter and assessment, information from prior notes written by myself or my colleagues may have been "brought forward" into today's note. My signature on this note, however, is an attestation that I personally performed the exam, history, and/or decision-making noted today, and, unless otherwise indicated, the interactions with patient, family, and staff as well as the review of records all occurred today. I also attest that the listed assessment and stated plan reflect my best clinical judgment today based on the combination of historical information, prior notes, and today's exam/ interactions. When time spent is documented, it refers only to time spent today by the signer, or if indicated, combined time spent today by collaborating physician/nurse practitioner. . Joselin Balbuena Mar 29, 2017 16:43
[2017-03-29] MEDS: ARGATROBAN INJ 250 MG in SODIUM CHLOR 0.9% 250 ML INJ 250 ML IV PRN (17:16)
--- NOTE | 2017-03-29 18:57 | HHI.PR ---
Subjective Remarks NO SOB VSS LETHARGIC TODAY Objective Vital Signs Date Time Temp Pulse Resp B/P (MAP) Pulse Ox O2 Delivery O2 Flow Rate FiO2 03/29/17 16:01 97.4 84 17 115/77 (90) 95 03/29/17 12:01 97.3 92 16 99/68 (78) 92 03/29/17 10:06 95 Nasal Cannula 3.00 03/29/17 08:22 98.1 64 16 113/67 (82) 95 03/29/17 08:00 96 Nasal Cannula 3.00 21 03/29/17 04:08 59 03/29/17 04:00 98.0 66 16 103/72 (82) 94 03/29/17 00:11 68 03/29/17 00:00 98.1 66 18 106/57 (73) 94 03/28/17 20:06 85 03/28/17 20:00 97.4 76 18 102/63 (76) 93 03/28/17 19:30 Nasal Cannula 3.00 I/O 03/28/17 03/28/17 03/28/17 03/29/17 03/29/17 03/29/17 07:00 15:00 23:00 07:00 15:00 23:00 Intake Total 200 ml 720 ml 1306 ml 360 ml Output Total 1400 ml 1380 ml Balance 200 ml 720 ml -94 ml -1380 ml 360 ml Intake Oral 200 ml 720 ml 700 ml 240 ml IV Total 606 ml 120 ml Output Urine Total 1400 ml 1380 ml Bladder Scan Volume Amount 625 ml 850 ml # Voids 4 1 3 3 # Bowel Movements 3 0 2 1 0 Result Diagram: 03/29/17 0510 03/29/17 0510 Objective Remarks GENERAL: SKIN: Warm and dry. HEAD: Atraumatic. Normocephalic. EYES: Pupils equal and round. No scleral icterus. No injection or drainage. ENT: No nasal bleeding or discharge. Mucous membranes pink and moist. NECK: Trachea midline. No JVD. CARDIOVASCULAR: Regular rate and rhythm. RESPIRATORY: No accessory muscle use. Clear to auscultation. Breath sounds equal bilaterally. GASTROINTESTINAL: Abdomen soft, non-tender, nondistended. Hepatic and splenic margins not palpable. MUSCULOSKELETAL: Extremities without clubbing, cyanosis, or edema. No obvious deformities. NEUROLOGICAL: LETHARGIC. PSYCHIATRIC: Appropriate mood and affect; insight and judgment normal. GENERAL: SKIN: Warm and dry. HEAD: Atraumatic. Normocephalic. EYES: Pupils equal and round. No scleral icterus. No injection or drainage. ENT: No nasal bleeding or discharge. Mucous membranes pink and moist. NECK: Trachea midline. No JVD. CARDIOVASCULAR: Regular rate and rhythm. RESPIRATORY: No accessory muscle use. Clear to auscultation. Breath sounds equal bilaterally. GASTROINTESTINAL: Abdomen soft, non-tender, nondistended. Hepatic and splenic margins not palpable. MUSCULOSKELETAL: Extremities without clubbing, cyanosis, or edema. No obvious deformities. NEUROLOGICAL: Awake and alert. No obvious cranial nerve deficits. Motor grossly within normal limits. Five out of 5 muscle strength in the arms and legs. Normal speech. PSYCHIATRIC: Appropriate mood and affect; insight and judgment normal. Assessment and Plan Assessment and Plan PVD s/p CVA ACUTE PE PLAN ANTICOAGULATE IF OK WITH NEURO O2 NEEDED PRN ALBUTEROL INREASE ACTIVITY Krysta,Krysta Ontiveros MD Mar 29, 2017 18:57
[2017-03-29] MEDS: ATORVASTATIN 80 MG TAB PO SCH (21:19)
[2017-03-29] MEDS: MONTELUKAST SODIUM 10 MG TAB PO SCH (21:19)
[2017-03-30] VITALS (10 sets, daily range): BP systolic 101–111; BP diastolic 59–75; PULSE 68–90; RESP 18–22; TEMP 97.4–98.2; O2SAT 94–96
[2017-03-30 00:19] LABS: BILIRUBIN, URINE NEG (NEG); BLOOD, URINE MOD (NEG); GLUCOSE,URINE NEG (NEG); KETONE, URINE NEG (NEG); NITRITE,URINE NEG (NEG); SQUAMOUS EPITHELIAL CELL URINE <1 /hpf (0-5); URINE COLOR YELLOW (YELLW/STRAW); URINE LEUKOCYTE ESTERASE NEG (NEG)
[2017-03-30 07:12] LABS: AUTOMATED NEUTROPHIL # 14.2 TH/MM3 (1.8-7.7); BASOPHIL % 0.1 % (0.0-2.0); EOSINOPHIL # 0.1 TH/MM3 (0-0.4); EOSINOPHIL % 0.8 % (0.0-4.0); HEMOGLOBIN 14.9 GM/DL (13.0-17.0); LYMPH % 5.1 % (9.0-44.0); LYMPHOCYTE # 0.8 TH/MM3 (1.0-4.8); MEAN CELL VOLUME 86.8 FL (80.0-100.0); MEAN CORPUSCULAR HEMOGLOBIN 28.7 PG (27.0-34.0); MEAN CORPUSCULAR HGB CONC 33.1 % (32.0-36.0); MEAN PLATELET VOLUME 9.5 FL (7.0-11.0); MONO % 3.9 % (0.0-8.0); MONOCYTE # 0.6 TH/MM3 (0-0.9); NEUT % 90.1 % (16.0-70.0); PLATELET COUNT 112 TH/MM3 (150-450); RED BLOOD COUNT 5.18 MIL/MM3 (4.50-5.90); RED CELL DISTRIBUTION WIDTH 15.5 % (11.6-17.2); WHITE BLOOD COUNT 15.8 TH/MM3 (4.0-11.0)
[2017-03-30 07:28] LABS: BICARBONATE 22.2 MEQ/L (21.0-32.0); CREATININE 0.91 MG/DL (0.60-1.30)
[2017-03-30] MEDS: FLUTICASONE 200 MCG/VILANTEROL 25 MCG INHALER INH SCH (09:00)
[2017-03-30] MEDS: SODIUM CHLORIDE 0.9% FLUSH 10 ML FLUSH IV FLUSH SCH ×2 (09:00→20:36)
[2017-03-30] MEDS: DULoxetine HCl DR 60 MG CAP PO SCH (09:38)
[2017-03-30] MEDS: LISINOPRIL 10 MG TAB PO SCH (09:38)
[2017-03-30] MEDS: ASPIRIN 81 MG CHEW TAB CHEW SCH (09:39)
[2017-03-30] MEDS: AMIODARONE 200 MG TAB PO SCH (09:39)
[2017-03-30] MEDS: MULTIVITAMIN TAB PO SCH (09:39)
[2017-03-30] MEDS: FINASTERIDE 5 MG TAB PO SCH (09:39)
[2017-03-30] MEDS: GABAPENTIN 300 MG CAP PO SCH ×2 (09:39→20:36)
[2017-03-30] MEDS: METOPROLOL TARTRATE 50 MG TAB PO SCH ×2 (09:39→20:36)
[2017-03-30] MEDS: PANTOPRAZOLE SOD 40 MG DELAYED RELEASE TAB PO SCH (09:39)
[2017-03-30] MEDS: predniSONE 20 MG TAB PO SCH (09:40)
[2017-03-30] MEDS: ARGATROBAN INJ 250 MG in SODIUM CHLOR 0.9% 250 ML INJ 250 ML IV PRN (10:17)
[2017-03-30] MEDS ORDERED: PILL SPLITTER OTHER PRN (10:45)
--- NOTE | 2017-03-30 11:56 | HHI.FPPN ---
Subjective Remarks No acute issues overnight. Vitals are stable, patient remains afebrile. He denies any chest pain, shortness of breath, fever, chills, nausea or vomiting. He is tolerating by mouth. (Lizeth Hawk MD, R3) Objective Vitals Vital Signs Date Time Temp Pulse Resp B/P (MAP) Pulse Ox O2 Delivery O2 Flow Rate FiO2 03/30/17 09:01 97.8 79 18 107/75 (86) 96 03/30/17 07:15 Bi-Pap 03/30/17 04:00 97.4 71 22 111/68 (82) 95 03/30/17 03:52 72 03/29/17 23:46 63 03/29/17 22:01 96 Nasal Cannula 3.00 03/29/17 20:15 Nasal Cannula 3.00 03/29/17 20:03 85 03/29/17 20:00 98.5 97 21 111/58 (75) 93 03/29/17 20:00 91.7 82 14 108/73 (85) 96 03/29/17 16:01 97.4 84 17 115/77 (90) 95 03/29/17 12:01 97.3 92 16 99/68 (78) 92 I/O 03/29/17 03/29/17 03/29/17 03/30/17 03/30/17 03/30/17 07:00 15:00 23:00 07:00 15:00 23:00 Intake Total 360 ml Output Total 1380 ml Balance -1380 ml 360 ml Intake Oral 240 ml IV Total 120 ml Output Urine Total 1380 ml Bladder Scan Volume Amount 850 ml 999 ml 999 ml # Voids 3 3 # Bowel Movements 2 1 0 (Lizeth Hawk MD, R3) Result Diagram: 03/30/17 0620 03/30/17 0620 Imaging Last Impressions Soft Tissue Ultrasound 03/28/17 0000 Signed Impressions: Service Date/Time: Tuesday, March 28, 2017 10:02 - CONCLUSION: 1. No abnormality in the area of palpable concern. 2. Note is made of a distended urinary bladder. Adrian Perez Jr., MD Abdomen/Pelvis CT 03/26/17 0000 Signed Impressions: Service Date/Time: Sunday, March 26, 2017 13:04 - CONCLUSION: 1. Significant prostatic enlargement which appears to be causing a degree of bladder outlet obstruction.. 2. No evidence of inflammatory process within the abdomen or pelvis, no evidence of mass or adenopathy. No etiology seen for the patient's pulmonary embolus. Danni Vieira MD Renal Ultrasound 03/25/17 1205 Signed Impressions: Service Date/Time: Saturday, March 25, 2017 12:29 - CONCLUSION: Bilateral kidneys appear enlarged which is secondary to multiple bilateral large renal cysts. There is no evidence of hydronephrosis or obstructive uropathy. Lakhwinder Adams MD Chest X-Ray 03/23/17 0000 Signed Impressions: Service Date/Time: March 10:52 - CONCLUSION: 1. Developing lateral atelectatic changes above the left hemidiaphragm. Lungs are otherwise clear. 2. Stable degenerative changes of the dorsal spine. 3. Heart size is borderline but well compensated. Domingo Laura MD CT Angiography 03/23/17 0000 Signed Impressions: Service Date/Time: March 12:36 - CONCLUSION: 1. There is saddle embolus with clot seen in both the right and left central pulmonary arteries. There is fairly extensive thrombus evident. 2. 2.9 x 3.2 cm cyst within the liver. 3. Mild aneurysmal dilation of the ascending aorta and proximal arch Judah Nelson MD Abdomen X-Ray 03/23/17 0000 Signed Impressions: Service Date/Time: March 10:57 - CONCLUSION: 1. Radiographically benign abdomen. 2. Stable position of Vena-Tech type IVC filter projecting over the L1 and L2 vertebral bodies. 3. Degenerative changes of the thoracolumbar spine as described above. Domingo Laura MD IVC Filter Placement X-Ray 03/21/17 0000 Signed Impressions: Service Date/Time: Tuesday, March 21, 2017 11:48 - CONCLUSION: Uncomplicated inferior vena cava filter placement as above. Lupillo Arellano MD Lower Extremity Ultrasound 03/20/17 0000 Signed Impressions: Service Date/Time: Monday, March 20, 2017 14:25 - CONCLUSION: Positive venous Doppler bilaterally above the knee on the right and below the knee on the left. Seymour Nelson MD FACR Head CT 03/15/17 0800 Signed Impressions: Service Date/Time: Wednesday, March 15, 2017 08:11 - CONCLUSION: 1. Stable CT of the brain including prominent area of low-density in the right cerebellum could be an acute/subacute infarct. This is unchanged. 2. Old appearing small infarcts in the right parietal/occipital lobe and left cerebellum are stable. Bradley Simmons MD Neck CTA 03/14/17 Signed Impressions: Service Date/Time: Tuesday, March 14, 2017 10:44 - CONCLUSION: Minimal calcific plaquing nonstenotic bilateral carotid bulbs and initial segment of the right internal carotid. Lakhwinder Adams MD Brain MRI 03/14/17 Signed Impressions: Service Date/Time: Tuesday, March 14, 2017 19:56 - CONCLUSION: 1. No significant change in the appearance of large acute infarction involving the right cerebellum as well as the much smaller acute infarctions involving the right occipital lobe and left high parietal cortex. There is evidence of some hemorrhage within the right cerebellar infarct which is unchanged. 2. Scattered periventricular and subcortical white matter small vessel ischemic changes are noted bilaterally. 3. Old lacunar infarcts are noted within the bilateral basal ganglia and bilateral cerebellar hemispheres. Shai Thrasher MD Neck Magnetic Resonance Angiography [id number] Signed Impressions: Service Date/Time: Monday, March 13, 2017 21:58 - CONCLUSION: 1. No significant stenosis in the carotid arteries. Left vertebral artery is dominant. Adrián Caicedo MD Head Magnetic Resonance Angiography [id number]/13/[id number] Signed Impressions: Service Date/Time: Monday, March 13, 2017 21:58 - CONCLUSION: 1. Patient within normal limits for age. Adrián Caicedo MD Lower Extremity Angiography 03/08/17 Signed Impressions: Service Date/Time: Wednesday, March 08, 2017 13:02 - CONCLUSION: 1. Distal left above-knee popliteal artery occlusion with plaque and chronic thrombus extending to the distal SFA with mature genicular collaterals. Given the apparent chronicity of the findings, planned TPA thrombolysis was not performed. Donovan Baez MD Liver Ultrasound 03/07/17 0000 Signed Impressions: Service Date/Time: Tuesday, March 07, 2017 18:01 - CONCLUSION: 1. Multiple large right renal cysts. No hydronephrosis a very ductal dilatation. Cholecystectomy. Mild fatty liver. Adrián Caicedo MD Aorta w/Runoff CTA 03/06/17 0000 Signed Impressions: Service Date/Time: Tuesday, March 07, 2017 11:30 - CONCLUSION: 1. There is abrupt occlusion of the left superficial femoral at the adductor hiatus and extending down to the trifurcation. This appears possibly embolic as there is very little diffuse vascular disease. 2. Adequate inflow a variety. 3. Enlargement of the prostate. 4. Multiple renal cysts bilaterally. 5. Enlargement of the prostate. 6. Small bilateral inguinal hernias. Judah Nelson MD Aorta Ultrasound 03/06/17 0000 Signed Impressions: Service Date/Time: Monday, March 06, 2017 07:48 - CONCLUSION: 1. No abdominal aortic aneurysm. Size measurements are given above. Judah Nelson MD Carotid Artery Ultrasound 03/05/17 0000 Signed Impressions: Service Date/Time: Sunday, March 05, 2017 22:16 - CONCLUSION: 1. No hemodynamically significant stenosis in either carotid artery. 2. Nonvisualization right vertebral artery. Bradley Simmons MD Objective Remarks GENERAL: Elderly gentleman lying in bed in NAD. RESPIRATORY: CTAB, currently on 3L nasal cannula with oxygen saturation of 96%. No increased work of breathing. CARDIOVASCULAR: RRR, no m/r/g. Radial and DP pulses 2+ and symmetric bilaterally. Brisk capillary refill. ABDOMEN: Soft, nondistended, nontender with BS in all 4 quadrants. No masses appreciated. MUSCULOSKELETAL: No edema appreciated. BL calf tenderness, negative Brenna's bilaterally. No swelling or skin changes. 2+ DP and PT pulses BL. Left food slightly erythematous and edematous. Tender to palpation. LLE: Femoropopliteal bypass incision sites, CDI. Pulses 2+ b/l. Sensation intact b/l. Moving toes and legs b/l. SKIN: Essentially clear with no significant rash or lesions. Adequate skin turgor. NEUROLOGICAL: Continued slurred speech, stable from prior exam. Otherwise CN 2- 12 grossly intact. Patient does attempt to communicate verbally, however he primarily communicates through hand motions and yes/no questions. Sensation intact throughout. Procedures tPA therapy for thrombolysis of left SFA 03/08-03/09 (Lizeth Hawk MD, R3) A/P Assessment and Plan 76-year-old male s/p Fempop bypass surgery on 03/09 subsequently found to have acute right cerebellar infarct on 03/13, b/l DVTs on 03/20 s/p IVC filter placed 03/21, and saddle PE on 03/23. Patient transferred to [facility] on 03/23 for further monitoring. Patient is currently stable. Discharge Planning Anticipate discharge to [facility] today Palliative care consulted to verify goals PT/OT/speech at rehab (Lizeth Hawk MD, R3) Attending Attestation Patient seen and examined. Case reviewed and discussed with the resident team. Agree with plan of care as discussed with me and documented in the resident note. appreciate help of Neurology who agrees with Coumadin for Mr Gallagher. Hematology will start Coumadin today. Unfortunately, it takes 3-5 days or more to get therapeutic on Coumadin but it's a start. (Arianne Tang MD) Problem List: (1) Hypercoagulopathy ICD Codes: D68.59 - Other primary thrombophilia Status: Acute Plan: -Hematology consulted, appreciated recommendations -Discontinue Heparin gtt (03/27/17-03/29/17) due to decreasing platelet counts -Resumed Argatroban 03/29/17, plan to transition to Coumadin -SHAUN noted to be negative Tumor markers ordered for suspected metastasis AFP, CA125, PSA wnl CA 19-9 elevated at 171.1 and CEA elevated at 5.3 CT Abd/pelvis w/o contrast demonstrated significant prostatic enlargement which appears to be causing a degree of bladder outlet obstruction. No evidence of inflammatory process within the abdomen or pelvis, no evidence of mass or adenopathy. -Hypercoagulable workup pending -Protein C, AT III high, however not clinically significant. -Antiphospholipid IgM antibody. 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 -Neurology and Hematology consulted, plans as above -Currently on 3L NC with saturation in the mid 90s. 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 Currently on Argatroban 250mg IV due to saddle embolus and afib. He does have approximately 15-20% chance of worsening intracranial hemorrhage on systemic anticoagulation. Okay with transition to PO Coumadin -Continue Aspirin, Effient discontinued -CT previously recommended 04/01/17 -Neurologically stable -Neurosurgery consulted, recs appreciated -CT head reviewed, nonoperative mgt -Palliative care consulted to assist with medical goals -Neurochecks q4h -Continue PT/OT/ST, patient encouraged to participate in therapy to assist with discharge planning Previous Workup: Patient with slurred speech on 03/[address] and MRI showing R cerebellar edema and infarction consistent with CVA. -Head CT: 3.5 x 3.6 cm low attenuation area in the right cerebellar hemisphere area most characteristic of edema which could be secondary to underlying mass or infarction. Second smaller focal peripheral area of decreased attenuation involving the right parietal occipital watershed region concerning for edema as well. Further evaluation with MRI recommended. -Brain MRI: Proximally 5cm infarct of the right cerebellar hemisphere with small punctate infarcts in the right occipital lobe and left parietal lobe. Remote lacunar infarcts of the right basal ganglia and cerebellum. -Head MRA: Patient within normal limits for age -Neck MRA: No significant stenosis in the carotid arteries. Left vertebral artery is dominant. -Neck CTA: Minimal calcific plaquing nonstenotic bilateral carotid bulbs and initial segment of the right internal carotid. -Repeat Brain MRI: no significant change in the appearance of large acute infarction involving the right cerebellum as well as the much smaller acute infarctions involving the right occipital lobe and left high parietal cortex. -Repeat head CT: Stable right cerebellar infarction, fourth ventricle open, no signs of hydrocephalus (4) Paroxysmal atrial fibrillation ICD Codes: I48.0 - Paroxysmal atrial fibrillation Status: Acute Plan: -Cardiology consulted, recs appreciated. -SEAN: atrial septal aneurysm and PFO. PFO closure not recommended. Otherwise , unremarkable. -Paroxysmal atrial fibrillation noted 03/20 -Continue metoprolol 50mg PO q12hr and Amiodarone 200mg PO daily. -Continue anticoagulation as above. (5) DVT (deep venous thrombosis) ICD Codes: I82.409 - Acute embolism and thrombosis of unspecified deep veins of unspecified lower extremity Status: Acute Plan: -LE US 03/20/17: Positive venous Doppler bilaterally above the knee on the R and below the knee on the L. -IR consulted, IVC filter placed 03/20/17, abdominal X-ray 03/23 demonstrated stable position of IVC filter over L1 and L2 -Anticoagulation as above. (6) Abdominal mass ICD Codes: R19.00 - Intra-abdominal and pelvic swelling, mass and lump, unspecified site Plan: Most likely hematoma from Lovenox SC shots Abdominal US unremarkable (7) Pneumonia ICD Codes: J18.9 - Pneumonia, unspecified organism Plan: CXR 03/17 demonstrated consolidation with infrahilar region on the right, possible aspiration Pneumonia -Pulmonology previously consulted, appreciate recommendations -s/p Methylprednisolone 80mg IV push q8hr (03/07-03/28) s/p Vancomycin (03/17-03/22) and Zosyn 4.5 GM IV q6h (03/17-03/22) Plan: - Prednisone 20mg daily (started 03/28), Taper initiated with 15mg PO daily x 3 days then 10mg PO daily x 3 days, then 7.5mg PO daily x 3 days, then 5mg PO daily indefinitely based on further evaluation (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 -Thoracic aneurysm aneurysm will be managed medically and with close follow- up for imaging -Goal systolic blood pressure of less than 120 (10) Superficial femoral artery occlusion ICD Codes: I70.209 - Unspecified atherosclerosis of [place] arteries of extremities, unspecified extremity Status: Resolved Plan: -Patient status post left femoropopliteal bypass femoral endarterectomy popliteal endarterectomy and patch on 03/09 -Patient w/ hx of PAD (11) HTN (hypertension) ICD Codes: I10 - Essential (primary) hypertension Status: Chronic Plan: -Continue lisinopril 10 mg daily, metoprolol tartrate 50 mg PO BID -Vasotec 1.25 mg IV when necessary for systolic blood pressure greater than 160 , diastolic blood pressure greater than 90 -Goal systolic blood pressure of less than 120 due to thoracic aortic aneurysm (12) CAD (coronary artery disease) ICD Codes: I25.10 - Atherosclerotic heart disease of [place] coronary artery without angina pectoris Status: Chronic Plan: -Patient with known CAD, status post coronary stents placed in 2007 -Continue home atorvastatin 80 mg at night, ASA 81 mg daily (13) BPH (benign prostatic hyperplasia) ICD Codes: N40.0 - Benign prostatic hyperplasia without lower urinary tract symptoms Plan: Continue home finasteride 5 mg by mouth daily Will do bladder scan looking for residual urine after voiding Straight cath if needed (14) FEN Plan: Diet: Heart healthy diet with nectar thickened liquids Oral fluids only Replete electrolytes as needed Neurochecks q4h Zofran as needed for nausea Tylenol as needed for fever Protonix for GI prophylaxis (Lizeth Hawk MD, R3) Problem Qualifiers (1) DVT (deep venous thrombosis): (2) Pneumonia: (3) HTN (hypertension): Qualified Codes: I10 - Essential (primary) hypertension (4) CAD (coronary artery disease): Qualified Codes: I25.10 - Atherosclerotic heart disease of [place] coronary artery without angina pectoris Lizeth Hawk MD, R3 Mar 30, 2017 11:56 Arianne Tagn MD Mar 31, 2017 13:14
--- NOTE | 2017-03-30 13:57 | PD.ONC.PN ---
Subjective Subjective Remarks Late entry, patient seen at 11AM. Afebrile overnight. Patient eager to go to rehab. Resting comfortably in bed. Objective Data Date Time Temp Pulse Resp B/P (MAP) Pulse Ox O2 Delivery O2 Flow Rate FiO2 03/30/17 12:01 97.5 69 18 106/64 (78) 96 03/30/17 12:00 68 03/30/17 09:01 97.8 79 18 107/75 (86) 96 03/30/17 08:10 83 03/30/17 07:15 Bi-Pap 03/30/17 04:00 97.4 71 22 111/68 (82) 95 03/30/17 03:52 72 03/29/17 23:46 63 03/29/17 22:01 96 Nasal Cannula 3.00 03/29/17 20:15 Nasal Cannula 3.00 03/29/17 20:03 85 03/29/17 20:00 98.5 97 21 111/58 (75) 93 03/29/17 20:00 91.7 82 14 108/73 (85) 96 03/29/17 16:01 97.4 84 17 115/77 (90) 95 Result Diagram: 03/30/17 0620 03/30/17 0620 Laboratory Results Laboratory Tests Test 03/29/17 20:54 03/29/17 23:10 03/30/17 00:45 03/30/17 06:20 Activated Partial Thromboplast Time 46.0 SEC 57.2 SEC 55.3 SEC Urine Color YELLOW Urine Turbidity HAZY Urine pH 5.0 Urine Specific Menan 1.019 Urine Protein TRACE mg/dL Urine Glucose (UA) NEG mg/dL Urine Ketones NEG mg/dL Urine Occult Blood MOD Urine Nitrite NEG Urine Bilirubin NEG Urine Urobilinogen LESS THAN 2.0 MG/DL Urine Leukocyte Esterase NEG Urine RBC /hpf Urine WBC 1 /hpf Urine Squamous Epithelial Cells <1 /hpf Microscopic Urinalysis Comment CATH-CULT NOT IND White Blood Count 15.8 TH/MM3 Red Blood Count 5.18 MIL/MM3 Hemoglobin 14.9 GM/DL Hematocrit 45.0 % Mean Corpuscular Volume 86.8 FL Mean Corpuscular Hemoglobin 28.7 PG Mean Corpuscular Hemoglobin Concent 33.1 % Red Cell Distribution Width 15.5 % Platelet Count 112 TH/MM3 Mean Platelet Volume 9.5 FL Neutrophils (%) (Auto) 90.1 % Lymphocytes (%) (Auto) 5.1 % Monocytes (%) (Auto) 3.9 % Eosinophils (%) (Auto) 0.8 % Basophils (%) (Auto) 0.1 % Neutrophils # (Auto) 14.2 TH/MM3 Lymphocytes # (Auto) 0.8 TH/MM3 Monocytes # (Auto) 0.6 TH/MM3 Eosinophils # (Auto) 0.1 TH/MM3 Basophils # (Auto) 0.0 TH/MM3 CBC Comment DIFF FINAL Differential Comment Blood Urea Nitrogen 55 MG/DL Creatinine 0.91 MG/DL Random Glucose 88 MG/DL Calcium Level 8.0 MG/DL Sodium Level 136 MEQ/L Potassium Level 5.4 MEQ/L Chloride Level 104 MEQ/L Carbon Dioxide Level 22.2 MEQ/L Anion Gap 10 MEQ/L Estimat Glomerular Filtration Rate 81 ML/MIN Administered Medications Medications (Trade) Dose Ordered Sig/Lizbeth Route PRN Reason Start Time Stop Time Status Last Admin Dose Admin Sodium Chloride (NS Flush) 2 ml UNSCH PRN IV FLUSH FLUSH AFTER USING IV ACCESS 03/05/17 22:00 03/23/17 05:34 Sodium Chloride (NS Flush) 2 ml BID IV FLUSH 03/06/17 09:00 03/30/17 09:00 Atorvastatin Calcium (Lipitor) 80 mg HS PO 03/05/17 22:15 03/29/17 21:19 Finasteride (Proscar) 5 mg DAILY PO 03/06/17 09:00 03/30/17 09:39 Fluticasone/ Vilanterol (Breo Ellipta 200-25 Inh) 1 puff DAILY INH 03/06/17 09:00 03/30/17 09:00 Gabapentin (Neurontin) 300 mg BID PO 03/05/17 22:15 03/30/17 09:39 Lisinopril (Prinivil) 10 mg DAILY PO 03/06/17 09:00 03/30/17 09:38 Prasugrel (Effient) 10 mg DAILY PO 03/06/17 09:00 Future Hold 03/12/17 08:51 Pantoprazole Sodium (Protonix) 40 mg DAILY PO 03/06/17 09:00 03/30/17 09:39 Multivitamins (Theragran) 1 tab DAILY PO 03/06/17 09:00 03/30/17 09:39 Albuterol Sulfate (Albuterol Neb) 2.5 mg Q4HR WHILE AWAKE NEB PRN NEB SHORTNESS OF BREATH 03/05/17 22:15 03/28/17 07:42 Ondansetron HCl (Zofran Inj) 4 mg Q6HR PRN IV PUSH NAUSEA OR VOMITING 03/05/17 22:15 03/17/17 20:32 Acetaminophen (Tylenol) 325 mg Q4H PRN PO FEVER 03/05/17 22:15 03/11/17 00:55 Metoprolol Tartrate (Lopressor) 50 mg Q12HR PO 03/06/17 10:00 03/30/17 09:39 Montelukast Sodium (Singulair) 10 mg HS PO 03/06/17 21:00 03/29/17 21:19 Morphine Sulfate (Morphine Inj) 4 mg Q3H PRN IV PUSH 6-10 03/09/17 16:30 03/13/17 09:57 Oxycodone/ Acetaminophen (Percocet 5-325 Mg) 1 tab Q4H PRN PO 3-5 03/09/17 16:30 03/22/17 00:43 Lactulose (Lactulose Liq) 30 ml DAILY PRN PO SEVERE CONSITIPATION 03/14/17 12:30 03/14/17 15:23 Aspirin (Aspirin Chew) 162 mg DAILY CHEW 03/19/17 09:00 03/30/17 09:39 Duloxetine HCl (Cymbalta Dr) 60 mg DAILY PO 03/23/17 09:00 03/30/17 09:38 Amiodarone HCl (Cordarone) 200 mg DAILY PO 03/23/17 09:00 03/30/17 09:39 Miscellaneous Information Patient in critical care unit? Ass... [id number] .XX 03/23/17 21:15 03/23/17 21:15 Argatroban 250 mg/ Sodium Chloride 252.5 ml @ 13.07 mls/ hr TITRATE PRN IV aPTT < 50 03/29/17 16:00 03/30/17 10:17 Objective Remarks GENERAL: Elderly male, lying in bed resting. SKIN: Warm and dry. HEAD: Normocephalic. EYES: No injection or drainage. NECK: Supple, trachea midline. CARDIOVASCULAR: Regular rate and rhythm RESPIRATORY: anterior laguna clear. GASTROINTESTINAL: Abdomen soft, non-tender, nondistended. EXTREMITIES: Poor pulses L foot with bluish discoloration L great toe, pale R foot with good pulses. NEUROLOGICAL: awake. facial movements symmetric. following commands. Assessment/Plan Assessment 76y/o male with h/o PAD admitted on 03/05/17 with dyspnea. History: --evaluated by vascular surgery for worsening PVD and superficial femoral artery occlusion --s/p tpa lysis and then femoral-popliteal bypass. --then developed right cerebellar ischemic infarct with punctate infarcts of the right occipital and left parietal lobes. --bc of the minimal degree of ICH, ac was placed on hold --LE U/S showed DVT bilaterally --had IVC filter placement on 03/21/17 Plan 1. continue Argatroban gtt. ok to start coumadin at 2mg PO daily today 2. monitor platelet count. if platelets are rising tomorrow, may consider switching to Arixtra and discharging to [facility]. Attending Statement The exam, history, and the medical decision-making described in the above note were completed with the assistance of the mid-level provider. I reviewed and agree with the findings presented. I attest that I had a [id number] encounter with the patient on the same day, and personally performed and documented my assessment and findings in the medical record. Pt awake communicating by writing. CPAP in place. Requesting results of CT and EEG, copies of reports left for patient at bedside for review. Discussed need to continue anticoagulant therapy with Argatroban, competing need , uncertain HIT antibody positive and SHAUN neg- IS HIT Roxanna false positive ( more likely) or SHAUN false neg? Clinically concerning for HIT with decrease in platelet count while on UFH therefore continue Argatroban for now, monitor platelet count. Follow R great toe, previous evaluation suggest better pulses than identified today. Jennifer Otto Mar 30, 2017 13:57 Abby Camacho MD Mar 30, 2017 17:49
--- NOTE | 2017-03-30 17:09 | HHI.PR ---
Subjective Remarks NO SOB VSS ALERT THIS AM Objective Vital Signs Date Time Temp Pulse Resp B/P (MAP) Pulse Ox O2 Delivery O2 Flow Rate FiO2 03/30/17 16:20 98.2 90 18 109/59 (76) 95 03/30/17 12:01 97.5 69 18 106/64 (78) 96 03/30/17 12:00 68 03/30/17 09:01 97.8 79 18 107/75 (86) 96 03/30/17 08:10 83 03/30/17 07:15 Bi-Pap 03/30/17 04:00 97.4 71 22 111/68 (82) 95 03/30/17 03:52 72 03/29/17 23:46 63 03/29/17 22:01 96 Nasal Cannula 3.00 03/29/17 20:15 Nasal Cannula 3.00 03/29/17 20:03 85 03/29/17 20:00 98.5 97 21 111/58 (75) 93 03/29/17 20:00 91.7 82 14 108/73 (85) 96 I/O 03/29/17 03/29/17 03/29/17 03/30/17 03/30/17 03/30/17 07:00 15:00 23:00 07:00 15:00 23:00 Intake Total 360 ml Output Total 1380 ml Balance -1380 ml 360 ml Intake Oral 240 ml IV Total 120 ml Output Urine Total 1380 ml Bladder Scan Volume Amount 850 ml 999 ml 999 ml # Voids 3 3 # Bowel Movements 2 1 0 Result Diagram: 03/30/17 0620 03/30/17 0620 Objective Remarks GENERAL: SKIN: Warm and dry. HEAD: Atraumatic. Normocephalic. EYES: Pupils equal and round. No scleral icterus. No injection or drainage. ENT: No nasal bleeding or discharge. Mucous membranes pink and moist. NECK: Trachea midline. No JVD. CARDIOVASCULAR: Regular rate and rhythm. RESPIRATORY: No accessory muscle use. Clear to auscultation. Breath sounds equal bilaterally. GASTROINTESTINAL: Abdomen soft, non-tender, nondistended. Hepatic and splenic margins not palpable. MUSCULOSKELETAL: Extremities without clubbing, cyanosis, or edema. No obvious deformities. NEUROLOGICAL: LETHARGIC. PSYCHIATRIC: Appropriate mood and affect; insight and judgment normal. GENERAL: SKIN: Warm and dry. HEAD: Atraumatic. Normocephalic. EYES: Pupils equal and round. No scleral icterus. No injection or drainage. ENT: No nasal bleeding or discharge. Mucous membranes pink and moist. NECK: Trachea midline. No JVD. CARDIOVASCULAR: Regular rate and rhythm. RESPIRATORY: No accessory muscle use. Clear to auscultation. Breath sounds equal bilaterally. GASTROINTESTINAL: Abdomen soft, non-tender, nondistended. Hepatic and splenic margins not palpable. MUSCULOSKELETAL: Extremities without clubbing, cyanosis, or edema. No obvious deformities. NEUROLOGICAL: Awake and alert. No obvious cranial nerve deficits. Motor grossly within normal limits. Five out of 5 muscle strength in the arms and legs. Normal speech. PSYCHIATRIC: Appropriate mood and affect; insight and judgment normal. Assessment and Plan Assessment and Plan PVD s/p CVA ACUTE PE PLAN ANTICOAGULATE IF OK WITH NEURO O2 NEEDED PRN ALBUTEROL INREASE ACTIVITY Krysta Chaparro MD Mar 30, 2017 17:09
[2017-03-30] MEDS: WARFARIN SOD 2 MG TAB PO SCH (17:42)
[2017-03-30] MEDS: ATORVASTATIN 80 MG TAB PO SCH (20:36)
[2017-03-30] MEDS: MONTELUKAST SODIUM 10 MG TAB PO SCH (20:36)
[2017-03-30] MEDS: MORPHINE SULFATE 4 MG/ML INJ IV PUSH PRN (20:46)
[2017-03-31] VITALS (7 sets, daily range): BP systolic 93–110; BP diastolic 59–71; PULSE 56–77; RESP 14–18; TEMP 97.2–98.2; O2SAT 17–96
[2017-03-31] MEDS: ARGATROBAN INJ 250 MG in SODIUM CHLOR 0.9% 250 ML INJ 250 ML IV PRN (03:29)
[2017-03-31] MEDS: FLUTICASONE 200 MCG/VILANTEROL 25 MCG INHALER INH SCH (09:00)
[2017-03-31] MEDS: SODIUM CHLORIDE 0.9% FLUSH 10 ML FLUSH IV FLUSH SCH ×2 (09:00→21:30)
[2017-03-31] MEDS: AMIODARONE 200 MG TAB PO SCH (09:01)
[2017-03-31] MEDS: GABAPENTIN 300 MG CAP PO SCH ×2 (09:02→21:30)
[2017-03-31] MEDS: predniSONE 5 MG TAB PO SCH (09:02)
[2017-03-31] MEDS: MULTIVITAMIN TAB PO SCH (09:02)
[2017-03-31] MEDS: LISINOPRIL 10 MG TAB PO SCH (09:02)
[2017-03-31] MEDS: FINASTERIDE 5 MG TAB PO SCH (09:02)
[2017-03-31] MEDS: PANTOPRAZOLE SOD 40 MG DELAYED RELEASE TAB PO SCH (09:03)
[2017-03-31] MEDS: ASPIRIN 81 MG CHEW TAB CHEW SCH (09:03)
[2017-03-31] MEDS: DULoxetine HCl DR 60 MG CAP PO SCH (09:03)
[2017-03-31] MEDS: METOPROLOL TARTRATE 50 MG TAB PO SCH ×2 (09:03→21:00)
--- NOTE | 2017-03-31 10:41 | HHI.FPPN ---
Subjective Remarks No acute events overnight. Pt lying in bed, currently on 3 L NC. Pt "sad" because [facility]. Currently on argatroban and coumadin. Afebrile. Vitals wnl. No complaints this AM. (Kalyani Loaiza MD R1) Objective Vitals Vital Signs Date Time Temp Pulse Resp B/P (MAP) Pulse Ox O2 Delivery O2 Flow Rate FiO2 03/31/17 08:00 97.4 63 14 108/66 (80) 93 03/31/17 07:33 93 Nasal Cannula 3.00 03/31/17 04:00 64 03/31/17 04:00 98.2 62 18 110/71 (84) 95 03/31/17 00:00 98.2 68 18 106/65 (79) 96 03/31/17 00:00 65 03/30/17 20:00 97.9 83 18 101/67 (78) 94 03/30/17 19:15 86 03/30/17 19:15 95 Nasal Cannula 3.00 21 03/30/17 17:23 95 Nasal Cannula 3.00 03/30/17 16:20 98.2 90 18 109/59 (76) 95 03/30/17 12:01 97.5 69 18 106/64 (78) 96 03/30/17 12:00 68 I/O 03/30/17 03/30/17 03/30/17 03/31/17 03/31/17 03/31/17 07:00 15:00 23:00 07:00 15:00 23:00 Intake Total 240 ml Output Total 750 ml 650 ml Balance -750 ml 240 ml -650 ml Intake Oral 240 ml Output Urine Total 750 ml 650 ml Bladder Scan Volume Amount 999 ml # Bowel Movements 1 (Kalyani Loaiza MD R1) Result Diagram: 03/30/17 0620 03/30/17 0620 Objective Remarks GENERAL: Elderly gentleman lying in bed in NAD. RESPIRATORY: CTAB, currently on 3L nasal cannula with oxygen saturation of 96%. No increased work of breathing. CARDIOVASCULAR: RRR, no m/r/g. Radial and DP pulses 2+ and symmetric bilaterally. Brisk capillary refill. ABDOMEN: Soft, nondistended, nontender with BS in all 4 quadrants. No masses appreciated. MUSCULOSKELETAL: No edema appreciated. BL calf tenderness, negative Brenna's bilaterally. No swelling or skin changes. 2+ DP and PT pulses BL. Left food slightly erythematous and edematous. Tender to palpation. LLE: Femoropopliteal bypass incision sites, CDI. Pulses 2+ b/l. Sensation intact b/l. Moving toes and legs b/l. SKIN: Essentially clear with no significant rash or lesions. Adequate skin turgor. NEUROLOGICAL: Continued slurred speech, stable from prior exam. Otherwise CN 2- 12 grossly intact. Patient does attempt to communicate verbally, however he primarily communicates through hand motions and yes/no questions. Sensation intact throughout. Procedures tPA therapy for thrombolysis of left SFA 03/08-03/09 (Kalyani Loaiza MD R1) A/P Assessment and Plan 76-year-old male s/p Fempop bypass surgery on 03/09 subsequently found to have acute right cerebellar infarct on 03/13, b/l DVTs on 03/20 s/p IVC filter placed 03/21, and saddle PE on 03/23. Patient transferred to [facility] on 03/23 for further monitoring. Patient is currently stable. Discharge Planning Anticipate discharge to [facility] Palliative care consulted to verify goals PT/OT/speech at rehab (Kalyani Loaiza MD R1) Attending Attestation Patient seen and examined. Case reviewed and discussed with the resident team. Agree with plan of care as discussed with me and documented in the resident note. Discussed with pt and his about going to [facility] soon. He is pleased to be able to go there soon. Tomorrow should hopefully be the day. His is concerned that he is not taking in enough fluids as he "just sips". His BPs are a bit lower today with systolics less than 100. His Is and Os show a deficit of at least 1 liter. Unfortunately, the Is and Os are not 100% reliable on the floor but the pt is thirsty. Will give him a bolus of 500 cc half normal saline. will not start iv but can write order to get him to take at least a minimum of fluids po daily. (Arianne Tang MD) Problem List: (1) Hypercoagulopathy ICD Codes: D68.59 - Other primary thrombophilia Status: Acute Plan: -Hematology consulted, appreciated recommendations -Continue Argatroban ( 03/29/17), bridge to Coumadin (2mg daily) -Discontinue Heparin gtt (03/27/17-03/29/17) due to decreasing platelet counts -SHAUN noted to be negative Tumor markers ordered for suspected metastasis AFP, CA125, PSA wnl CA 19-9 elevated at 171.1 and CEA elevated at 5.3 CT Abd/pelvis w/o contrast demonstrated significant prostatic enlargement which appears to be causing a degree of bladder outlet obstruction. No evidence of inflammatory process within the abdomen or pelvis, no evidence of mass or adenopathy. -Hypercoagulable workup pending -Protein C, AT III high, however not clinically significant. -Antiphospholipid IgM antibody. 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 -Neurology and Hematology consulted, plans as above -Currently on 3L NC with saturation in the mid 90s. 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 Currently on Argatroban 250mg IV due to saddle embolus and afib. He does have approximately 15-20% chance of worsening intracranial hemorrhage on systemic anticoagulation. Okay with transition to PO Coumadin -Continue Aspirin, Effient discontinued -CT previously recommended 04/01/17 -Neurologically stable -Neurosurgery consulted, recs appreciated -CT head reviewed, nonoperative mgt -Palliative care consulted to assist with medical goals -Neurochecks q4h -Continue PT/OT/ST, patient encouraged to participate in therapy to assist with discharge planning Previous Workup: Patient with slurred speech on 03/[address] and MRI showing R cerebellar edema and infarction consistent with CVA. -Head CT: 3.5 x 3.6 cm low attenuation area in the right cerebellar hemisphere area most characteristic of edema which could be secondary to underlying mass or infarction. Second smaller focal peripheral area of decreased attenuation involving the right parietal occipital watershed region concerning for edema as well. Further evaluation with MRI recommended. -Brain MRI: Proximally 5cm infarct of the right cerebellar hemisphere with small punctate infarcts in the right occipital lobe and left parietal lobe. Remote lacunar infarcts of the right basal ganglia and cerebellum. -Head MRA: Patient within normal limits for age -Neck MRA: No significant stenosis in the carotid arteries. Left vertebral artery is dominant. -Neck CTA: Minimal calcific plaquing nonstenotic bilateral carotid bulbs and initial segment of the right internal carotid. -Repeat Brain MRI: no significant change in the appearance of large acute infarction involving the right cerebellum as well as the much smaller acute infarctions involving the right occipital lobe and left high parietal cortex. -Repeat head CT: Stable right cerebellar infarction, fourth ventricle open, no signs of hydrocephalus (4) Paroxysmal atrial fibrillation ICD Codes: I48.0 - Paroxysmal atrial fibrillation Status: Acute Plan: -Cardiology consulted, recs appreciated. -SEAN: atrial septal aneurysm and PFO. PFO closure not recommended. Otherwise , unremarkable. -Paroxysmal atrial fibrillation noted 03/20 -Continue metoprolol 50mg PO q12hr and Amiodarone 200mg PO daily. -Continue anticoagulation as above. (5) DVT (deep venous thrombosis) ICD Codes: I82.409 - Acute embolism and thrombosis of unspecified deep veins of unspecified lower extremity Status: Acute Plan: -LE US 03/20/17: Positive venous Doppler bilaterally above the knee on the R and below the knee on the L. -IR consulted, IVC filter placed 03/20/17, abdominal X-ray 03/23 demonstrated stable position of IVC filter over L1 and L2 -Anticoagulation as above. (6) Abdominal mass ICD Codes: R19.00 - Intra-abdominal and pelvic swelling, mass and lump, unspecified site Plan: Most likely hematoma from Lovenox SC shots Abdominal US unremarkable (7) Pneumonia ICD Codes: J18.9 - Pneumonia, unspecified organism Plan: CXR 03/17 demonstrated consolidation with infrahilar region on the right, possible aspiration Pneumonia -Pulmonology previously consulted, appreciate recommendations -s/p Methylprednisolone 80mg IV push q8hr (1/23-03/28) s/p Vancomycin (03/17-03/22) and Zosyn 4.5 GM IV q6h (03/17-03/22) Plan: - Prednisone 20mg daily (started 03/28), Taper initiated with 15mg PO daily x 3 days then 10mg PO daily x 3 days, then 7.5mg PO daily x 3 days, then 5mg PO daily indefinitely based on further evaluation (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 -Thoracic aneurysm aneurysm will be managed medically and with close follow- up for imaging -Goal systolic blood pressure of less than 120 (10) Superficial femoral artery occlusion ICD Codes: I70.209 - Unspecified atherosclerosis of [place] arteries of extremities, unspecified extremity Status: Resolved Plan: -Patient status post left femoropopliteal bypass femoral endarterectomy popliteal endarterectomy and patch on 03/09 -Patient w/ hx of PAD (11) HTN (hypertension) ICD Codes: I10 - Essential (primary) hypertension Status: Chronic Plan: -Continue lisinopril 10 mg daily, metoprolol tartrate 50 mg PO BID -Vasotec 1.25 mg IV when necessary for systolic blood pressure greater than 160 , diastolic blood pressure greater than 90 -Goal systolic blood pressure of less than 120 due to thoracic aortic aneurysm (12) CAD (coronary artery disease) ICD Codes: I25.10 - Atherosclerotic heart disease of [place] coronary artery without angina pectoris Status: Chronic Plan: -Patient with known CAD, status post coronary stents placed in 2007 -Continue home atorvastatin 80 mg at night, ASA 81 mg daily (13) BPH (benign prostatic hyperplasia) ICD Codes: N40.0 - Benign prostatic hyperplasia without lower urinary tract symptoms Plan: Continue home finasteride 5 mg by mouth daily Will do bladder scan looking for residual urine after voiding Straight cath if needed (14) FEN Plan: Diet: Heart healthy diet with nectar thickened liquids Oral fluids only Replete electrolytes as needed Neurochecks q4h Zofran as needed for nausea Tylenol as needed for fever Protonix for GI prophylaxis (Kalyani Loaiza MD R1) Problem Qualifiers (1) DVT (deep venous thrombosis): (2) Pneumonia: (3) HTN (hypertension): Qualified Codes: I10 - Essential (primary) hypertension (4) CAD (coronary artery disease): Qualified Codes: I25.10 - Atherosclerotic heart disease of [place] coronary artery without angina pectoris Kalyani Loaiza MD R1 Mar 31, 2017 10:41 Arianne Tang MD Mar 31, 2017 13:19
[2017-03-31 11:05] LABS: AUTOMATED NEUTROPHIL # 13.6 TH/MM3 (1.8-7.7); BASOPHIL # 0.1 TH/MM3 (0-0.2); BASOPHIL % 0.3 % (0.0-2.0); EOSINOPHIL # 0.1 TH/MM3 (0-0.4); EOSINOPHIL % 0.7 % (0.0-4.0); HEMATOCRIT 45.3 % (39.0-51.0); HEMOGLOBIN 14.7 GM/DL (13.0-17.0); LYMPH % 4.6 % (9.0-44.0); LYMPHOCYTE # 0.7 TH/MM3 (1.0-4.8); MEAN CELL VOLUME 87.3 FL (80.0-100.0); MEAN CORPUSCULAR HEMOGLOBIN 28.3 PG (27.0-34.0); MEAN CORPUSCULAR HGB CONC 32.4 % (32.0-36.0); MEAN PLATELET VOLUME 8.9 FL (7.0-11.0); MONO % 3.3 % (0.0-8.0); MONOCYTE # 0.5 TH/MM3 (0-0.9); NEUT % 91.1 % (16.0-70.0); PLATELET COUNT 92 TH/MM3 (150-450); RED BLOOD COUNT 5.19 MIL/MM3 (4.50-5.90); RED CELL DISTRIBUTION WIDTH 15.7 % (11.6-17.2)
[2017-03-31 11:11] LABS: BICARBONATE 22.8 MEQ/L (21.0-32.0); CALCIUM 7.9 MG/DL (8.5-10.1); CREATININE 0.83 MG/DL (0.60-1.30)
--- NOTE | 2017-03-31 11:17 | PD.ONC.PN ---
Subjective Subjective Remarks Afebrile overnight. Patient resting in bed in nad. No complaints. No overnight events. waiting to go to rehab. Objective Data Date Time Temp Pulse Resp B/P (MAP) Pulse Ox O2 Delivery O2 Flow Rate FiO2 03/31/17 08:00 97.4 63 14 108/66 (80) 93 03/31/17 07:33 93 Nasal Cannula 3.00 03/31/17 04:00 64 03/31/17 04:00 98.2 62 18 110/71 (84) 95 03/31/17 00:00 98.2 68 18 106/65 (79) 96 03/31/17 00:00 65 03/30/17 20:00 97.9 83 18 101/67 (78) 94 03/30/17 19:15 86 03/30/17 19:15 95 Nasal Cannula 3.00 21 03/30/17 17:23 95 Nasal Cannula 3.00 03/30/17 16:20 98.2 90 18 109/59 (76) 95 03/30/17 12:01 97.5 69 18 106/64 (78) 96 03/30/17 12:00 68 03/31/17 03/31/17 03/31/17 06:59 14:59 22:59 Output Total 650 ml Balance -650 ml Result Diagram: 03/31/17 1040 03/31/17 1040 Laboratory Results Laboratory Tests Test 03/31/17 10:40 White Blood Count 15.0 TH/MM3 Red Blood Count 5.19 MIL/MM3 Hemoglobin 14.7 GM/DL Hematocrit 45.3 % Mean Corpuscular Volume 87.3 FL Mean Corpuscular Hemoglobin 28.3 PG Mean Corpuscular Hemoglobin Concent 32.4 % Red Cell Distribution Width 15.7 % Platelet Count 92 TH/MM3 Mean Platelet Volume 8.9 FL Neutrophils (%) (Auto) 91.1 % Lymphocytes (%) (Auto) 4.6 % Monocytes (%) (Auto) 3.3 % Eosinophils (%) (Auto) 0.7 % Basophils (%) (Auto) 0.3 % Neutrophils # (Auto) 13.6 TH/MM3 Lymphocytes # (Auto) 0.7 TH/MM3 Monocytes # (Auto) 0.5 TH/MM3 Eosinophils # (Auto) 0.1 TH/MM3 Basophils # (Auto) 0.1 TH/MM3 CBC Comment AUTO DIFF Blood Urea Nitrogen 46 MG/DL Creatinine 0.83 MG/DL Random Glucose 90 MG/DL Calcium Level 7.9 MG/DL Sodium Level 135 MEQ/L Potassium Level 5.1 MEQ/L Chloride Level 105 MEQ/L Carbon Dioxide Level 22.8 MEQ/L Anion Gap 7 MEQ/L Estimat Glomerular Filtration Rate 90 ML/MIN Administered Medications Medications (Trade) Dose Ordered Sig/Lizbeth Route PRN Reason Start Time Stop Time Status Last Admin Dose Admin Sodium Chloride (NS Flush) 2 ml UNSCH PRN IV FLUSH FLUSH AFTER USING IV ACCESS 03/05/17 22:00 03/23/17 05:34 Sodium Chloride (NS Flush) 2 ml BID IV FLUSH 03/06/17 09:00 03/31/17 09:00 Atorvastatin Calcium (Lipitor) 80 mg HS PO 03/05/17 22:15 03/30/17 20:36 Finasteride (Proscar) 5 mg DAILY PO 03/06/17 09:00 03/31/17 09:02 Fluticasone/ Vilanterol (Breo Ellipta 200-25 Inh) 1 puff DAILY INH 03/06/17 09:00 03/31/17 09:00 Gabapentin (Neurontin) 300 mg BID PO 03/05/17 22:15 03/31/17 09:02 Lisinopril (Prinivil) 10 mg DAILY PO 03/06/17 09:00 03/31/17 09:02 Prasugrel (Effient) 10 mg DAILY PO 03/06/17 09:00 Future Hold 03/12/17 08:51 Pantoprazole Sodium (Protonix) 40 mg DAILY PO 03/06/17 09:00 03/31/17 09:03 Multivitamins (Theragran) 1 tab DAILY PO 03/06/17 09:00 03/31/17 09:02 Albuterol Sulfate (Albuterol Neb) 2.5 mg Q4HR WHILE AWAKE NEB PRN NEB SHORTNESS OF BREATH 03/05/17 22:15 03/28/17 07:42 Ondansetron HCl (Zofran Inj) 4 mg Q6HR PRN IV PUSH NAUSEA OR VOMITING 03/05/17 22:15 2 20:32 Acetaminophen (Tylenol) 325 mg Q4H PRN PO FEVER 03/05/17 22:15 03/11/17 00:55 Metoprolol Tartrate (Lopressor) 50 mg Q12HR PO 03/06/17 10:00 03/31/17 09:03 Montelukast Sodium (Singulair) 10 mg HS PO 03/06/17 21:00 03/30/17 20:36 Morphine Sulfate (Morphine Inj) 4 mg Q3H PRN IV PUSH 6-10 03/09/17 16:30 03/30/17 20:46 Oxycodone/ Acetaminophen (Percocet 5-325 Mg) 1 tab Q4H PRN PO 3-5 03/09/17 16:30 03/22/17 00:43 Lactulose (Lactulose Liq) 30 ml DAILY PRN PO SEVERE CONSITIPATION 03/14/17 12:30 03/14/17 15:23 Aspirin (Aspirin Chew) 162 mg DAILY CHEW 03/19/17 09:00 03/31/17 09:03 Duloxetine HCl (Cymbalta Dr) 60 mg DAILY PO 03/23/17 09:00 03/31/17 09:03 Amiodarone HCl (Cordarone) 200 mg DAILY PO 03/23/17 09:00 03/31/17 09:01 Miscellaneous Information Patient in critical care unit? Ass... [id number] .XX 03/23/17 21:15 03/23/17 21:15 Argatroban 250 mg/ Sodium Chloride 252.5 ml @ 13.07 mls/ hr TITRATE PRN IV aPTT < 50 03/29/17 16:00 03/31/17 03:29 Prednisone (Deltasone) 15 mg Taper DAILY PO 03/31/17 09:00 05/09/17 08:59 03/31/17 09:02 Warfarin Sodium (Coumadin) 2 mg DAILY@16 PO 03/30/17 16:00 03/30/17 17:42 Objective Remarks GENERAL: Elderly male, supine in bed in nad. SKIN: Warm and dry. HEAD: Normocephalic. EYES: No injection or drainage. NECK: Supple, trachea midline. CARDIOVASCULAR: Regular rate and rhythm RESPIRATORY: anterior [place] clear. GASTROINTESTINAL: Abdomen soft, non-tender, nondistended. EXTREMITIES: no cyanosis. NEUROLOGICAL: awake. following commands. Assessment/Plan Assessment 76y/o male with h/o PAD admitted on 03/05/17 with dyspnea. History: --evaluated by vascular surgery for worsening PVD and superficial femoral artery occlusion --s/p tpa lysis and then femoral-popliteal bypass. --then developed right cerebellar ischemic infarct with punctate infarcts of the right occipital and left parietal lobes. --bc of the minimal degree of ICH, ac was placed on hold --LE U/S showed DVT bilaterally --had IVC filter placement on 03/21/17 Plan 1. continue Argatroban bridge to Coumadin. 2. monitor CBC. Jennifer Otto Mar 31, 2017 11:17
[2017-03-31] MEDS ORDERED: COUM2TAB PO (11:47)
[2017-03-31] MEDS ORDERED: PRED5TAB PO (11:47)
[2017-03-31] MEDS ORDERED: SODIUM CHLOR 0.45% 500 ML INJ 500 ML IV ONE (12:00)
[2017-03-31 13:59] LABS: INTERNATIONAL NORMALIZED RATIO 3.8 RATIO; PROTHROMBIN TIME - PATIENT 38.3 SEC (9.8-11.6)
--- NOTE | 2017-03-31 14:17 | HHI.DCPOC ---
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 (3) Aorta aneurysm (4) CAD (coronary artery disease) (5) Paroxysmal atrial fibrillation (6) DVT (deep venous thrombosis) (7) CVA (cerebral vascular accident) (8) Flash pulmonary edema (9) Superficial femoral artery occlusion (10) Cerebral infarction due to unspecified occlusion or stenosis of right cerebellar artery (11) Saddle embolism of pulmonary artery (12) Hypercoagulopathy Goals to Promote Your Health * To prevent worsening of your condition and complications * To maintain your health at the optimal level Directions to Meet Your Goals Take your medications as prescribed Follow your dietary instruction Follow activity as directed Keep your appointments as scheduled Take your immunizations and boosters as scheduled If your symptoms worsen call your PCP, if no PCP go to Urgent Care Center or Emergency Room Smoking is Dangerous to Your Health. Avoid second hand smoke Call the 24-hour hour crisis hotline for domestic abuse at Lv Ordaz MD R2 Mar 31, 2017 14:17
[2017-03-31] MEDS: WARFARIN SOD 2 MG TAB PO SCH (17:38)
--- NOTE | 2017-03-31 19:27 | HHI.PR ---
Subjective Remarks NO SOB VSS ALERT THIS AM Objective Vital Signs Date Time Temp Pulse Resp B/P (MAP) Pulse Ox O2 Delivery O2 Flow Rate FiO2 03/31/17 16:00 72 03/31/17 16:00 97.5 77 14 96/60 (72) 92 03/31/17 12:00 64 03/31/17 12:00 97.2 56 14 93/59 (70) 94 03/31/17 08:00 97.4 63 14 108/66 (80) 93 03/31/17 08:00 60 03/31/17 07:33 93 Nasal Cannula 3.00 03/31/17 07:15 Nasal Cannula 3.00 21 03/31/17 04:00 64 03/31/17 04:00 98.2 62 18 110/71 (84) 95 03/31/17 00:00 98.2 68 18 106/65 (79) 96 03/31/17 00:00 65 03/30/17 20:00 97.9 83 18 101/67 (78) 94 I/O 03/30/17 03/30/17 03/30/17 03/31/17 03/31/17 03/31/17 07:00 15:00 23:00 07:00 15:00 23:00 Intake Total 240 ml 480 ml Output Total 750 ml 650 ml 325 ml Balance -750 ml 240 ml -650 ml -325 ml 480 ml Intake Oral 240 ml 480 ml Output Urine Total 750 ml 650 ml 325 ml Bladder Scan Volume Amount 999 ml # Voids 0 # Bowel Movements 1 0 Result Diagram: 03/31/17 1040 03/31/17 1040 Objective Remarks GENERAL: SKIN: Warm and dry. HEAD: Atraumatic. Normocephalic. EYES: Pupils equal and round. No scleral icterus. No injection or drainage. ENT: No nasal bleeding or discharge. Mucous membranes pink and moist. NECK: Trachea midline. No JVD. CARDIOVASCULAR: Regular rate and rhythm. RESPIRATORY: No accessory muscle use. Clear to auscultation. Breath sounds equal bilaterally. GASTROINTESTINAL: Abdomen soft, non-tender, nondistended. Hepatic and splenic margins not palpable. MUSCULOSKELETAL: Extremities without clubbing, cyanosis, or edema. No obvious deformities. NEUROLOGICAL: LETHARGIC. PSYCHIATRIC: Appropriate mood and affect; insight and judgment normal. GENERAL: SKIN: Warm and dry. HEAD: Atraumatic. Normocephalic. EYES: Pupils equal and round. No scleral icterus. No injection or drainage. ENT: No nasal bleeding or discharge. Mucous membranes pink and moist. NECK: Trachea midline. No JVD. CARDIOVASCULAR: Regular rate and rhythm. RESPIRATORY: No accessory muscle use. Clear to auscultation. Breath sounds equal bilaterally. GASTROINTESTINAL: Abdomen soft, non-tender, nondistended. Hepatic and splenic margins not palpable. MUSCULOSKELETAL: Extremities without clubbing, cyanosis, or edema. No obvious deformities. NEUROLOGICAL: Awake and alert. No obvious cranial nerve deficits. Motor grossly within normal limits. Five out of 5 muscle strength in the arms and legs. Normal speech. PSYCHIATRIC: Appropriate mood and affect; insight and judgment normal. Assessment and Plan Assessment and Plan PVD s/p CVA ACUTE PE PLAN ANTICOAGULATE IF OK WITH NEURO O2 NEEDED PRN ALBUTEROL INREASE ACTIVITY Krysta Chaparro MD Mar 31, 2017 19:27
[2017-03-31] MEDS: ATORVASTATIN 80 MG TAB PO SCH (21:30)
[2017-03-31] MEDS: MONTELUKAST SODIUM 10 MG TAB PO SCH (21:30)
[2017-04-01] VITALS: BP 103/68; PULSE 71; PULSE 74; RESP 16; TEMP 97.5; O2SAT 95
[2017-04-01] MEDS: MORPHINE SULFATE 4 MG/ML INJ IV PUSH PRN ×2 (01:05→04:54)
[2017-04-01 04:00] VITALS: BP 118/81; PULSE 76; PULSE 81; RESP 17; TEMP 96.5; O2SAT 93
[2017-04-01 05:59] LABS: AUTOMATED NEUTROPHIL # 12.2 TH/MM3 (1.8-7.7); EOSINOPHIL # 0.1 TH/MM3 (0-0.4); EOSINOPHIL % 1.1 % (0.0-4.0); HEMATOCRIT 44.4 % (39.0-51.0); HEMOGLOBIN 14.7 GM/DL (13.0-17.0); LYMPH % 4.8 % (9.0-44.0); LYMPHOCYTE # 0.6 TH/MM3 (1.0-4.8); MEAN CELL VOLUME 86.6 FL (80.0-100.0); MEAN CORPUSCULAR HEMOGLOBIN 28.7 PG (27.0-34.0); MEAN CORPUSCULAR HGB CONC 33.1 % (32.0-36.0); MEAN PLATELET VOLUME 9.1 FL (7.0-11.0); MONO % 3.3 % (0.0-8.0); MONOCYTE # 0.4 TH/MM3 (0-0.9); NEUT % 90.8 % (16.0-70.0); PLATELET COUNT 100 TH/MM3 (150-450); RED BLOOD COUNT 5.13 MIL/MM3 (4.50-5.90); RED CELL DISTRIBUTION WIDTH 15.6 % (11.6-17.2); WHITE BLOOD COUNT 13.5 TH/MM3 (4.0-11.0)
[2017-04-01 06:12] LABS: INTERNATIONAL NORMALIZED RATIO 3.8 RATIO; PROTHROMBIN TIME - PATIENT 38.6 SEC (9.8-11.6)
[2017-04-01 06:28] LABS: BICARBONATE 24.5 MEQ/L (21.0-32.0); CALCIUM 7.9 MG/DL (8.5-10.1); CREATININE 0.74 MG/DL (0.60-1.30)
[2017-04-01 08:00] VITALS: BP 135/84; PULSE 84; PULSE 85; RESP 18; TEMP 97.5; O2SAT 93
[2017-04-01] MEDS: SODIUM CHLORIDE 0.9% FLUSH 10 ML FLUSH IV FLUSH SCH (09:00)
[2017-04-01] MEDS: LISINOPRIL 10 MG TAB PO SCH (09:00)
[2017-04-01] MEDS: ASPIRIN 81 MG CHEW TAB CHEW SCH (09:58)
[2017-04-01] MEDS: ARGATROBAN INJ 250 MG in SODIUM CHLOR 0.9% 250 ML INJ 250 ML IV PRN (10:01)
[2017-04-01] MEDS: AMIODARONE 200 MG TAB PO SCH (10:01)
[2017-04-01] MEDS: DULoxetine HCl DR 60 MG CAP PO SCH (10:01)
[2017-04-01] MEDS: GABAPENTIN 300 MG CAP PO SCH (10:02)
[2017-04-01] MEDS: METOPROLOL TARTRATE 50 MG TAB PO SCH (10:02)
[2017-04-01] MEDS: predniSONE 5 MG TAB PO SCH (10:02)
[2017-04-01] MEDS: PANTOPRAZOLE SOD 40 MG DELAYED RELEASE TAB PO SCH (10:04)
[2017-04-01] MEDS: MULTIVITAMIN TAB PO SCH (10:05)
[2017-04-01] MEDS: FLUTICASONE 200 MCG/VILANTEROL 25 MCG INHALER INH SCH (10:05)
[2017-04-01] MEDS: FINASTERIDE 5 MG TAB PO SCH (10:05)
--- NOTE | 2017-04-01 10:07 | HHI.FPPN ---
Subjective Remarks No acute events overnight. Pt lying in bed, eating breakfast. Currently not on oxygen, breathing well on RA. Patient ready to go to inpatient rehab. Afebrile. vitals wnl. Denies CP, SOB, abdominal pain, and N/V. Will put in Rodriguez catheter this morning due to urinary retention. (Kalyani Loaiza MD R1) Objective Vitals Vital Signs Date Time Temp Pulse Resp B/P (MAP) Pulse Ox O2 Delivery O2 Flow Rate FiO2 04/01/17 08:00 97.5 85 18 135/84 (101) 93 04/01/17 04:00 76 04/01/17 04:00 96.5 81 17 118/81 (93) 93 04/01/17 00:00 97.5 71 16 103/68 (80) 95 04/01/17 00:00 74 03/31/17 20:00 72 03/31/17 20:00 97.4 70 17 103/61 (75) 92 03/31/17 19:15 97 Nasal Cannula 3.00 21 03/31/17 16:00 72 03/31/17 16:00 97.5 77 14 96/60 (72) 92 03/31/17 12:00 64 03/31/17 12:00 97.2 56 14 93/59 (70) 94 I/O 03/31/17 03/31/17 03/31/17 04/01/17 04/01/17 04/01/17 06:59 14:59 22:59 06:59 14:59 22:59 Intake Total 480 ml 90 ml Output Total 650 ml 325 ml 800 ml Balance -650 ml -325 ml 480 ml -710 ml Intake Oral 480 ml 90 ml Output Urine Total 650 ml 325 ml 800 ml # Voids 0 # Bowel Movements 1 0 (Kalyani Loaiza MD R1) Result Diagram: 04/01/17 0450 04/01/17 0450 Objective Remarks GENERAL: Elderly gentleman lying in bed in NAD. RESPIRATORY: CTAB. No increased work of breathing. CARDIOVASCULAR: RRR, no m/r/g. Radial and DP pulses 2+ and symmetric bilaterally. Brisk capillary refill. ABDOMEN: Soft, nondistended, nontender with BS in all 4 quadrants. No masses appreciated. MUSCULOSKELETAL: No edema appreciated. BL calf tenderness, negative Brenna's bilaterally. No swelling or skin changes. 2+ DP and PT pulses BL. Left food slightly erythematous and edematous. Tender to palpation. LLE: Femoropopliteal bypass incision sites, CDI. Pulses 2+ b/l. Sensation intact b/l. Moving toes and legs b/l. SKIN: Essentially clear with no significant rash or lesions. Adequate skin turgor. NEUROLOGICAL: Continued slurred speech, stable from prior exam. Otherwise CN 2- 12 grossly intact. Patient does attempt to communicate verbally, however he primarily communicates through hand motions and yes/no questions. Sensation intact throughout. Procedures tPA therapy for thrombolysis of left SFA 03/08-03/09 (Kalyani Loaiza MD R1) A/P Assessment and Plan 76-year-old male s/p Fempop bypass surgery on 03/09 subsequently found to have acute right cerebellar infarct on 03/13, b/l DVTs on 03/20 s/p IVC filter placed 03/21, and saddle PE on 03/23. Patient is currently stable. Discharge Planning Anticipate discharge to [facility] Palliative care consulted to verify goals PT/OT/speech at rehab (Kalyani Loaiza MD R1) Attending Attestation Patient seen and examined. Case reviewed and discussed with the resident team. Agree with plan of care as discussed with me and documented in the resident note. Mr Gallagher and his are very eager to start rehab. He has had such a prolonged hospital stay with so many problems and hopes to be able to go home in the not too distant future. Appreciate [facility] with all their help. (Arianne Tang MD) Problem List: (1) Hypercoagulopathy ICD Codes: D68.59 - Other primary thrombophilia Status: Acute Plan: -Hematology consulted, appreciated recommendations -Continue Argatroban ( 03/29/17), bridge to Coumadin (2mg daily), INR 3.8 today -Discontinue Heparin gtt (03/27/17-03/29/17) due to decreasing platelet counts -SHAUN noted to be negative Tumor markers ordered for suspected metastasis AFP, CA125, PSA wnl CA 19-9 elevated at 171.1 and CEA elevated at 5.3 CT Abd/pelvis w/o contrast demonstrated significant prostatic enlargement which appears to be causing a degree of bladder outlet obstruction. No evidence of inflammatory process within the abdomen or pelvis, no evidence of mass or adenopathy. -Hypercoagulable workup pending -Protein C, AT III high, however not clinically significant. -Antiphospholipid IgM antibody. 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 -Neurology and Hematology consulted, plans as above -Neurochecks Q4H with vital signs -Echo 2D doppler ordered for concerns of heart strain, results unremarkable (3) Cerebral infarction due to unspecified occlusion or stenosis of right cerebellar artery ICD Codes: I63.541 - Cerebral infarction due to unspecified occlusion or stenosis of right cerebellar artery Status: Acute Plan: -Neurology consulted, recs appreciated -Recommend systemic full intensity anticoagulation in the setting of hypercoagulable state. Currently on Argatroban 250mg IV due to saddle embolus and afib. He does have approximately 15-20% chance of worsening intracranial hemorrhage on systemic anticoagulation. Okay with transition to PO Coumadin -Continue Aspirin, Effient discontinued -CT previously recommended 04/01/17 -Neurologically stable -Neurosurgery consulted, recs appreciated -CT head reviewed, nonoperative mgt -Palliative care consulted to assist with medical goals -Neurochecks q4h -Continue PT/OT/ST, patient encouraged to participate in therapy to assist with discharge planning Previous Workup: Patient with slurred speech on 03/[address] and MRI showing R cerebellar edema and infarction consistent with CVA. -Head CT: 3.5 x 3.6 cm low attenuation area in the right cerebellar hemisphere area most characteristic of edema which could be secondary to underlying mass or infarction. Second smaller focal peripheral area of decreased attenuation involving the right parietal occipital watershed region concerning for edema as well. Further evaluation with MRI recommended. -Brain MRI: Proximally 5cm infarct of the right cerebellar hemisphere with small punctate infarcts in the right occipital lobe and left parietal lobe. Remote lacunar infarcts of the right basal ganglia and cerebellum. -Head MRA: Patient within normal limits for age -Neck MRA: No significant stenosis in the carotid arteries. Left vertebral artery is dominant. -Neck CTA: Minimal calcific plaquing nonstenotic bilateral carotid bulbs and initial segment of the right internal carotid. -Repeat Brain MRI: no significant change in the appearance of large acute infarction involving the right cerebellum as well as the much smaller acute infarctions involving the right occipital lobe and left high parietal cortex. -Repeat head CT: Stable right cerebellar infarction, fourth ventricle open, no signs of hydrocephalus (4) Paroxysmal atrial fibrillation ICD Codes: I48.0 - Paroxysmal atrial fibrillation Status: Acute Plan: -Cardiology consulted, recs appreciated. -SEAN: atrial septal aneurysm and PFO. PFO closure not recommended. Otherwise , unremarkable. -Paroxysmal atrial fibrillation noted 03/20 -Continue metoprolol 50mg PO q12hr and Amiodarone 200mg PO daily. -Continue anticoagulation as above. (5) DVT (deep venous thrombosis) ICD Codes: I82.409 - Acute embolism and thrombosis of unspecified deep veins of unspecified lower extremity Status: Acute Plan: -LE US 03/20/17: Positive venous Doppler bilaterally above the knee on the R and below the knee on the L. -IR consulted, IVC filter placed 03/20/17, abdominal X-ray 03/23 demonstrated stable position of IVC filter over L1 and L2 -Anticoagulation as above. (6) Abdominal mass ICD Codes: R19.00 - Intra-abdominal and pelvic swelling, mass and lump, unspecified site Plan: Most likely hematoma from Lovenox SC shots Abdominal US unremarkable (7) Pneumonia ICD Codes: J18.9 - Pneumonia, unspecified organism Plan: CXR 03/17 demonstrated consolidation with infrahilar region on the right, possible aspiration Pneumonia -Pulmonology previously consulted, appreciate recommendations -s/p Methylprednisolone 80mg IV push q8hr (03/07-03/28) s/p Vancomycin (03/17-03/22) and Zosyn 4.5 GM IV q6h (03/17-03/22) Plan: - Prednisone 20mg daily (started 03/28), Taper initiated with 15mg PO daily x 3 days then 10mg PO daily x 3 days, then 7.5mg PO daily x 3 days, then 5mg PO daily indefinitely based on further evaluation (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 -Thoracic aneurysm aneurysm will be managed medically and with close follow- up for imaging -Goal systolic blood pressure of less than 120 (10) Superficial femoral artery occlusion ICD Codes: I70.209 - Unspecified atherosclerosis of [place] arteries of extremities, unspecified extremity Status: Resolved Plan: -Patient status post left femoropopliteal bypass femoral endarterectomy popliteal endarterectomy and patch on 03/09 -Patient w/ hx of PAD (11) HTN (hypertension) ICD Codes: I10 - Essential (primary) hypertension Status: Chronic Plan: -Continue lisinopril 10 mg daily, metoprolol tartrate 50 mg PO BID -Vasotec 1.25 mg IV when necessary for systolic blood pressure greater than 160 , diastolic blood pressure greater than 90 -Goal systolic blood pressure of less than 120 due to thoracic aortic aneurysm (12) CAD (coronary artery disease) ICD Codes: I25.10 - Atherosclerotic heart disease of [place] coronary artery without angina pectoris Status: Chronic Plan: -Patient with known CAD, status post coronary stents placed in 2007 -Continue home atorvastatin 80 mg at night, ASA 81 mg daily (13) BPH (benign prostatic hyperplasia) ICD Codes: N40.0 - Benign prostatic hyperplasia without lower urinary tract symptoms Status: Chronic Plan: Continue home finasteride 5 mg by mouth daily Will do bladder scan looking for residual urine after voiding Straight cath if needed (14) FEN Status: Acute Plan: Diet: Heart healthy diet with nectar thickened liquids Oral fluids only Replete electrolytes as needed Neurochecks q4h Zofran as needed for nausea Tylenol as needed for fever Protonix for GI prophylaxis (Kalyani Loaiza MD R1) Problem Qualifiers (1) DVT (deep venous thrombosis): (2) Pneumonia: (3) HTN (hypertension): Qualified Codes: I10 - Essential (primary) hypertension (4) CAD (coronary artery disease): Qualified Codes: I25.10 - Atherosclerotic heart disease of [place] coronary artery without angina pectoris Kalyani Loaiza MD R1 Apr 01, 2017 10:07 Arianne Tang MD Apr 03, 2017 11:16
--- NOTE | 2017-04-01 11:57 | PD.ONC.PN ---
Subjective Subjective Remarks Afebrile overnight. Patient resting in room. No overnight events. scheduled to go to [facility] today, on Argatroban drip. Objective Data Date Time Temp Pulse Resp B/P (MAP) Pulse Ox O2 Delivery O2 Flow Rate FiO2 04/01/17 11:13 93 Nasal Cannula 3.00 21 04/01/17 08:00 97.5 85 18 135/84 (101) 93 04/01/17 04:00 76 04/01/17 04:00 96.5 81 17 118/81 (93) 93 04/01/17 00:00 97.5 71 16 103/68 (80) 95 04/01/17 00:00 74 03/31/17 20:00 72 03/31/17 20:00 97.4 70 17 103/61 (75) 92 03/31/17 19:15 97 Nasal Cannula 3.00 21 03/31/17 16:00 72 03/31/17 16:00 97.5 77 14 96/60 (72) 92 03/31/17 12:00 64 03/31/17 12:00 97.2 56 14 93/59 (70) 94 04/01/17 04/01/17 04/01/17 07:00 15:00 23:00 Intake Total 90 ml Output Total 800 ml Balance -710 ml Result Diagram: 04/01/17 04504/01/17 0450 Laboratory Results Laboratory Tests Test 03/31/17 12:50 04/01/17 04:50 Prothrombin Time 38.3 SEC 38.6 SEC Prothromb Time International Ratio 3.8 RATIO 3.8 RATIO Activated Partial Thromboplast Time 59.0 SEC 61.6 SEC White Blood Count 13.5 TH/MM3 Red Blood Count 5.13 MIL/MM3 Hemoglobin 14.7 GM/DL Hematocrit 44.4 % Mean Corpuscular Volume 86.6 FL Mean Corpuscular Hemoglobin 28.7 PG Mean Corpuscular Hemoglobin Concent 33.1 % Red Cell Distribution Width 15.6 % Platelet Count 100 TH/MM3 Mean Platelet Volume 9.1 FL Neutrophils (%) (Auto) 90.8 % Lymphocytes (%) (Auto) 4.8 % Monocytes (%) (Auto) 3.3 % Eosinophils (%) (Auto) 1.1 % Basophils (%) (Auto) 0.0 % Neutrophils # (Auto) 12.2 TH/MM3 Lymphocytes # (Auto) 0.6 TH/MM3 Monocytes # (Auto) 0.4 TH/MM3 Eosinophils # (Auto) 0.1 TH/MM3 Basophils # (Auto) 0.0 TH/MM3 CBC Comment DIFF FINAL Differential Comment Blood Urea Nitrogen 38 MG/DL Creatinine 0.74 MG/DL Random Glucose 87 MG/DL Calcium Level 7.9 MG/DL Sodium Level 133 MEQ/L Potassium Level 5.6 MEQ/L Chloride Level 102 MEQ/L Carbon Dioxide Level 24.5 MEQ/L Anion Gap 7 MEQ/L Estimat Glomerular Filtration Rate 102 ML/MIN Administered Medications Medications (Trade) Dose Ordered Sig/Lizbeth Route PRN Reason Start Time Stop Time Status Last Admin Dose Admin Sodium Chloride (NS Flush) 2 ml UNSCH PRN IV FLUSH FLUSH AFTER USING IV ACCESS 03/05/17 22:00 03/23/17 05:34 Sodium Chloride (NS Flush) 2 ml BID IV FLUSH 03/06/17 09:00 03/31/17 21:30 Atorvastatin Calcium (Lipitor) 80 mg HS PO 03/05/17 22:15 03/31/17 21:30 Finasteride (Proscar) 5 mg DAILY PO 03/06/17 09:00 04/01/17 10:05 Fluticasone/ Vilanterol (Breo Ellipta 200-25 Inh) 1 puff DAILY INH 03/06/17 09:00 04/01/17 10:05 Gabapentin (Neurontin) 300 mg BID PO 03/05/17 22:15 04/01/17 10:02 Lisinopril (Prinivil) 10 mg DAILY PO 03/06/17 09:00 03/31/17 09:02 Prasugrel (Effient) 10 mg DAILY PO 03/06/17 09:00 Future Hold 03/12/17 08:51 Pantoprazole Sodium (Protonix) 40 mg DAILY PO 03/06/17 09:00 04/01/17 10:04 Multivitamins (Theragran) 1 tab DAILY PO 03/06/17 09:00 04/01/17 10:05 Albuterol Sulfate (Albuterol Neb) 2.5 mg Q4HR WHILE AWAKE NEB PRN NEB SHORTNESS OF BREATH 03/05/17 22:15 03/28/17 07:42 Ondansetron HCl (Zofran Inj) 4 mg Q6HR PRN IV PUSH NAUSEA OR VOMITING 03/05/17 22:15 03/17/17 20:32 Acetaminophen (Tylenol) 325 mg Q4H PRN PO FEVER 03/05/17 22:15 03/11/17 00:55 Metoprolol Tartrate (Lopressor) 50 mg Q12HR PO 03/06/17 10:00 04/01/17 10:02 Montelukast Sodium (Singulair) 10 mg HS PO 03/06/17 21:00 03/31/17 21:30 Morphine Sulfate (Morphine Inj) 4 mg Q3H PRN IV PUSH 6-10 03/09/17 16:30 04/01/17 04:54 Oxycodone/ Acetaminophen (Percocet 5-325 Mg) 1 tab Q4H PRN PO 3-5 03/09/17 16:30 03/22/17 00:43 Lactulose (Lactulose Liq) 30 ml DAILY PRN PO SEVERE CONSITIPATION 03/14/17 12:30 03/14/17 15:23 Aspirin (Aspirin Chew) 162 mg DAILY CHEW 03/19/17 09:00 04/01/17 09:58 Duloxetine HCl (Cymbalta Dr) 60 mg DAILY PO 03/23/17 09:00 04/01/17 10:01 Amiodarone HCl (Cordarone) 200 mg DAILY PO 03/23/17 09:00 04/01/17 10:01 Miscellaneous Information Patient in critical care unit? Ass... [id number] .XX 03/23/17 21:15 03/23/17 21:15 Argatroban 250 mg/ Sodium Chloride 252.5 ml @ 13.07 mls/ hr TITRATE PRN IV aPTT < 50 03/29/17 16:00 04/01/17 10:01 Prednisone (Deltasone) 15 mg Taper DAILY PO 03/31/17 09:00 05/09/17 08:59 04/01/17 10:02 Warfarin Sodium (Coumadin) 2 mg DAILY@16 PO 03/30/17 16:00 03/31/17 17:38 Objective Remarks GENERAL: Elderly male, sitting up in bed in nad. SKIN: Warm and dry. HEAD: Normocephalic. EYES: No injection or drainage. NECK: Supple, trachea midline. CARDIOVASCULAR: Regular rate and rhythm RESPIRATORY: anterior [place] with occasional rhonchi. GASTROINTESTINAL: Abdomen soft, non-tender, nondistended. EXTREMITIES: no cyanosis. NEUROLOGICAL: awake. non-verbal but able to communicate non-verbally through writing and hand gestures. facial movements symmetric. Assessment/Plan Assessment 76y/o male with h/o PAD admitted on 03/05/17 with dyspnea. History: --evaluated by vascular surgery for worsening PVD and superficial femoral artery occlusion --s/p tpa lysis and then femoral-popliteal bypass. --then developed right cerebellar ischemic infarct with punctate infarcts of the right occipital and left parietal lobes. --bc of the minimal degree of ICH, ac was placed on hold --LE U/S showed DVT bilaterally --had IVC filter placement on 03/21/17 Plan 1. monitor CBC 2. continue Argatroban bridge to coumadin. monitor INR daily. Argatroban should be continued until INR is greater than 4.0 and then the INR should be retested when the Argatroban has been held for four hours. Attending Statement The exam, history, and the medical decision-making described in the above note were completed with the assistance of the mid-level provider. I reviewed and agree with the findings presented. I attest that I had a [id number] encounter with the patient on the same day, and personally performed and documented my assessment and findings in the medical record. OK to go to [facility]. Continue to bridge to therapeutic INR. No bleeding. INR 3.8 on Argatroban, continue to titrate Coumadin dose. Platelet count ~100K. Repeat TRINA/LAC still pending. Jennifer Otto Apr 01, 2017 11:57 Abby Camacho MD Apr 01, 2017 14:23
[2017-04-01 12:00] VITALS: BP 117/80; PULSE 100; PULSE 84; RESP 18; TEMP 97.7; O2SAT 93
--- NOTE | 2017-04-01 19:52 | HHI.PR ---
Addendum to Inpatient Note Addendum Reason: Additional Documentation Additional Information Off-service note: Patient is a 76-year-old male with a history of CAD, hypertension, GERD and PAD with blood clots that presented to the ED initially with SOB. Found to have 4.3 cm ascending thoracic aortic aneurysm on CTA. Vascular surgery consulted. Thoracic aneurysm aneurysm will be managed medically and with close follow-up for imaging. Patient s/p Fempop bypass surgery on 03/09 subsequently found to have acute right cerebellar infarct on 03/13, b/l DVTs on 03/20 s/p IVC filter placed 03/21, and saddle PE on 03/23. Neurology and Hematology consulted for hypercoagulable work up and recommendation on anticoagulant. Recommended systemic full intensity anticoagulation in the setting of hypercoagulable state. Patient was started on Heparin gtt (03/27/17) but it was discontinued on due to decreasing platelet count, suspected heparin induced thrombocytopenia. However, SHAUN noted to be negative. Patient is currently on Argatroban 250mg IV. He does have approximately 15-20% chance of worsening intracranial hemorrhage on systemic anticoagulation. He is being transition to PO Coumadin while on Argatroban. He was started on Duloxetine for depression post-stroke. Patient was noted to have Paroxysmal atrial fibrillation on 03/20, SEAN demonstrated PFO. Cardiology consulted, PFO colsure not recommended. Plan to continue metoprolol, amiodarone, and anticoagulation as above. Patient demonstrated consolidation with infrahilar region on the right on CXR 03/17, possible aspiration pneumonia. Patient was completed treatment with Vancomycin, Zosyn, and Solumedrol. Patient currently on a taper dose of prednisone daily. Patient determined to be stable and discharged to [place] [facility] 04/01/17. Previous Imaging: Patient with slurred speech on 03/[address] and MRI showing R cerebellar edema and infarction consistent with CVA. -Head CT: 3.5 x 3.6 cm low attenuation area in the right cerebellar hemisphere area most characteristic of edema which could be secondary to underlying mass or infarction. Second smaller focal peripheral area of decreased attenuation involving the right parietal occipital watershed region concerning for edema as well. Further evaluation with MRI recommended. -Brain MRI: Proximally 5cm infarct of the right cerebellar hemisphere with small punctate infarcts in the right occipital lobe and left parietal lobe. Remote lacunar infarcts of the right basal ganglia and cerebellum. -Head MRA: Patient within normal limits for age -Neck MRA: No significant stenosis in the carotid arteries. Left vertebral artery is dominant. -Neck CTA: Minimal calcific plaquing nonstenotic bilateral carotid bulbs and initial segment of the right internal carotid. -Repeat Brain MRI: no significant change in the appearance of large acute infarction involving the right cerebellum as well as the much smaller acute infarctions involving the right occipital lobe and left high parietal cortex. -Repeat head CT: Stable right cerebellar infarction, fourth ventricle open, no signs of hydrocephalus -Echo 2D doppler ordered for concerns of heart strain due to saddle PE, results unremarkable Previous Workup: Tumor markers ordered for suspected metastasis -AFP, CA125, PSA wnl -CA 19-9 elevated at 171.1 and CEA elevated at 5.3 -CT Abd/pelvis w/o contrast demonstrated significant prostatic enlargement which appears to be causing a degree of bladder outlet obstruction. No evidence of inflammatory process within the abdomen or pelvis, no evidence of mass or adenopathy. -Hypercoagulable workup pending -Protein C, AT III high, however not clinically significant. -Antiphospholipid IgM antibody negative. -Factor V Leiden mutation negative -Patient positive for Hep-Induced Plt AB Deandra -SHAUN negative Kalyani Loaiza MD R1 Apr 01, 2017 19:52
--- NOTE | 2017-04-02 09:37 | HHI.DS ---
Discharge Summary Admission Date Mar 06, 2017 at 01:00 Admitting Diagnosis SOB on O2 (1) Hypercoagulopathy Plan: -Hematology consulted, appreciated recommendations -Continue Argatroban ( 03/29/17), bridge to Coumadin (2mg daily), INR 3.8 today -Discontinue Heparin gtt (03/27/17-03/29/17) due to decreasing platelet counts -SHAUN noted to be negative Tumor markers ordered for suspected metastasis AFP, CA125, PSA wnl CA 19-9 elevated at 171.1 and CEA elevated at 5.3 CT Abd/pelvis w/o contrast demonstrated significant prostatic enlargement which appears to be causing a degree of bladder outlet obstruction. No evidence of inflammatory process within the abdomen or pelvis, no evidence of mass or adenopathy. -Hypercoagulable workup pending -Protein C, AT III high, however not clinically significant. -Antiphospholipid IgM antibody. 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 -Neurology and Hematology consulted, plans as above -Neurochecks Q4H with vital signs -Echo 2D doppler ordered for concerns of heart strain, results unremarkable ICD Codes: I26.92 - Saddle embolus of pulmonary artery without acute cor pulmonale Status: Acute (3) Cerebral infarction due to unspecified occlusion or stenosis of right cerebellar artery Plan: -Neurology consulted, recs appreciated -Recommend systemic full intensity anticoagulation in the setting of hypercoagulable state. Currently on Argatroban 250mg IV due to saddle embolus and afib. He does have approximately 15-20% chance of worsening intracranial hemorrhage on systemic anticoagulation. Okay with transition to PO Coumadin -Continue Aspirin, Effient discontinued -CT previously recommended 04/01/17 -Neurologically stable -Neurosurgery consulted, recs appreciated -CT head reviewed, nonoperative mgt -Palliative care consulted to assist with medical goals -Neurochecks q4h -Continue PT/OT/ST, patient encouraged to participate in therapy to assist with discharge planning Previous Workup: Patient with slurred speech on 03/[address] and MRI showing R cerebellar edema and infarction consistent with CVA. -Head CT: 3.5 x 3.6 cm low attenuation area in the right cerebellar hemisphere area most characteristic of edema which could be secondary to underlying mass or infarction. Second smaller focal peripheral area of decreased attenuation involving the right parietal occipital watershed region concerning for edema as well. Further evaluation with MRI recommended. -Brain MRI: Proximally 5cm infarct of the right cerebellar hemisphere with small punctate infarcts in the right occipital lobe and left parietal lobe. Remote lacunar infarcts of the right basal ganglia and cerebellum. -Head MRA: Patient within normal limits for age -Neck MRA: No significant stenosis in the carotid arteries. Left vertebral artery is dominant. -Neck CTA: Minimal calcific plaquing nonstenotic bilateral carotid bulbs and initial segment of the right internal carotid. -Repeat Brain MRI: no significant change in the appearance of large acute infarction involving the right cerebellum as well as the much smaller acute infarctions involving the right occipital lobe and left high parietal cortex. 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 -SEAN: atrial septal aneurysm and PFO. PFO closure not recommended. Otherwise , unremarkable. -Paroxysmal atrial fibrillation noted 03/20 -Continue metoprolol 50mg PO q12hr and Amiodarone 200mg PO daily. -Continue anticoagulation as above. ICD Codes: I48.0 - Paroxysmal atrial fibrillation Status: Acute (5) DVT (deep venous thrombosis) Plan: -LE US 03/20/17: Positive venous Doppler bilaterally above the knee on the R and below the knee on the L. -IR consulted, IVC filter placed 03/20/17, abdominal X-ray 03/23 demonstrated stable position of IVC filter over L1 and L2 -Anticoagulation as above. ICD Codes: I82.409 - Acute embolism and thrombosis of unspecified deep veins of unspecified lower extremity Status: Acute (6) Abdominal mass Plan: Most likely hematoma from Lovenox SC shots Abdominal US unremarkable ICD Codes: R19.00 - Intra-abdominal and pelvic swelling, mass and lump, unspecified site (7) Pneumonia Plan: CXR 03/17 demonstrated consolidation with infrahilar region on the right, possible aspiration Pneumonia -Pulmonology previously consulted, appreciate recommendations -s/p Methylprednisolone 80mg IV push q8hr (03/07-03/28) s/p Vancomycin (03/17-03/22) and Zosyn 4.5 GM IV q6h (03/17-03/22) Plan: - Prednisone 20mg daily (started 03/28), Taper initiated with 15mg PO daily x 3 days then 10mg PO daily x 3 days, then 7.5mg PO daily x 3 days, then 5mg PO daily indefinitely based on further evaluation ICD Codes: J18.9 - Pneumonia, unspecified organism (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 Plan: -Patient status post left femoropopliteal bypass femoral endarterectomy popliteal endarterectomy and patch on 03/09 -Patient w/ hx of PAD ICD Codes: I70.209 - Unspecified atherosclerosis of [place] arteries of extremities, unspecified extremity Status: Resolved (11) HTN (hypertension) Plan: -Continue lisinopril 10 mg daily, metoprolol tartrate 50 mg PO BID -Vasotec 1.25 mg IV when necessary for systolic blood pressure greater than 160 , diastolic blood pressure greater than 90 -Goal systolic blood pressure of less than 120 due to thoracic aortic aneurysm ICD Codes: I10 - Essential (primary) hypertension Status: Chronic (12) CAD (coronary artery disease) Plan: -Patient with known CAD, status post coronary stents placed in 2007 -Continue home atorvastatin 80 mg at night, ASA 81 mg daily ICD Codes: I25.10 - Atherosclerotic heart disease of [place] coronary artery without angina pectoris Status: Chronic (13) BPH (benign prostatic hyperplasia) Plan: Continue home finasteride 5 mg by mouth daily Will do bladder scan looking for residual urine after voiding Straight cath if needed ICD Codes: N40.0 - Benign prostatic hyperplasia without lower urinary tract symptoms (14) FEN Plan: Diet: Heart healthy diet with nectar thickened liquids Oral fluids only Replete electrolytes as needed Neurochecks q4h Zofran as needed for nausea Tylenol as needed for fever Protonix for GI prophylaxis Procedures tPA therapy for thrombolysis of left SFA 03/08-03/09 Brief History Mr. Gallagher is a 76 yo M presenting to the ED with 1 week history of SOB. Patient states that was in his normal state of health prior to 1 week ago when he had two dizzy spells. Patient states that he felt weak/that he may fall and probably sat down in a chair. Symptoms resolved until he tried to arise from the chair again later. Denies blacking out or sensation that the room was spinning. Denied chest pain, LOC or falls. Since then has been progressively more SOB/fatigued, both rest as well as on exertion. At baseline, he able to walk long distances/perform all daily activities with no SOB, but now he has SOB with minimal exertion. Patient has also noted that he has trouble napping/ falling asleep as he often awakes abruptly to catch his breath. Denies orthopnea /worsening SOB with laying flat. Of note he does use a CPAP machine at night. Patient reports postnasal drip but otherwise has no specific complaints.Denies fever, chills, CP, Cough, peripheral edema, N/V, diarrhea, constipation, bloody stools, abdominal pain, dysuria. Patient and his are living in [place] for several months during the winter. Plan on returning to [place] next month. CBC/BMP: 04/01/17 0450 04/01/17 0450 Significant Findings Laboratory Tests Test 03/31/17 10:40 03/31/17 12:50 04/01/17 04:50 White Blood Count 15.0 TH/MM3 (4.0-11.0) 13.5 TH/MM3 (4.0-11.0) Platelet Count 92 TH/MM3 (150-450) 100 TH/MM3 (150-450) Neutrophils (%) (Auto) 91.1 % (16.0-70.0) 90.8 % (16.0-70.0) Lymphocytes (%) (Auto) 4.6 % (9.0-44.0) 4.8 % (9.0-44.0) Neutrophils # (Auto) 13.6 TH/MM3 (1.8-7.7) 12.2 TH/MM3 (1.8-7.7) Lymphocytes # (Auto) 0.7 TH/MM3 (1.0-4.8) 0.6 TH/MM3 (1.0-4.8) Platelet Estimate LOW (NORMAL) Blood Urea Nitrogen 46 MG/DL (7-18) 38 MG/DL (7-18) Calcium Level 7.9 MG/DL (8.5-10.1) 7.9 MG/DL (8.5-10.1) Sodium Level 135 MEQ/L (136-145) 133 MEQ/L (136-145) Prothrombin Time 38.3 SEC (9.8-11.6) 38.6 SEC (9.8-11.6) Activated Partial Thromboplast Time 59.0 SEC (24.3-30.1) 61.6 SEC (24.3-30.1) Potassium Level 5.6 MEQ/L (3.5-5.1) PE at Discharge GENERAL: Elderly gentleman lying in bed in NAD. RESPIRATORY: CTAB. No increased work of breathing. CARDIOVASCULAR: RRR, no m/r/g. Radial and DP pulses 2+ and symmetric bilaterally. Brisk capillary refill. ABDOMEN: Soft, nondistended, nontender with BS in all 4 quadrants. No masses appreciated. MUSCULOSKELETAL: No edema appreciated. BL calf tenderness, negative Brenna's bilaterally. No swelling or skin changes. 2+ DP and PT pulses BL. Left food slightly erythematous and edematous. Tender to palpation. LLE: Femoropopliteal bypass incision sites, CDI. Pulses 2+ b/l. Sensation intact b/l. Moving toes and legs b/l. SKIN: Essentially clear with no significant rash or lesions. Adequate skin turgor. NEUROLOGICAL: Continued slurred speech, stable from prior exam. Otherwise CN 2- 12 grossly intact. Patient does attempt to communicate verbally, however he primarily communicates through hand motions and yes/no questions. Sensation intact throughout. Pt Condition on Discharge: Stable Discharge Disposition: Rehab Inpatient Discharge Instructions DIET: Follow Instructions for: Heart Healthy Diet Speech Therapy-Diet Recommends: Regular, Other Additional Diet Instructions: Regular diet with thin liquids per speech therapy Activities you can perform: Weight Bearing as Chandan Kalyani Loaiza MD R1 Apr 02, 2017 09:37
[2017-04-03 19:53] LABS: PHOS SERINE AB IGA LESS THAN 20 U/mL (<20)
[2017-04-04 17:50] LABS: BETA2 GLYCOPROTEIN I AB IGA LESS THAN 9.0 SAU (< OR = 20); BETA2 GLYCOPROTEIN I AB IGG LESS THAN 9.0 SGU (< OR = 20); BETA2 GLYCOPROTEIN I AB IGM LESS THAN 9.0 SMU (< OR = 20); CARDIOLIPIN AB IGA LESS THAN 11.0 APL (0-11)
== END 2017-04-01 14:09 | DRG 270 ==
LOC: NEPC 16:37 → NEDA 20:51 → NEPFCDU 22:50 → OBSVTOIN 03-06 01:00 → N04B 03-07 14:57 → N03B 03-08 13:28 → HCIN 03-08 19:17 → N04A 03-09 20:50 → N07A 03-10 15:07 → HCVI 03-11 09:30 → N03A 03-14 09:53 → N04B 03-17 15:10 → HIME 03-23 12:45 → N04A 03-25 17:40
PROVIDERS: ADMIT Family Medicine; ATTEND Family Medicine
PROC: 04CJ0ZZ Extirpation of Matter from Left External Iliac Artery, Open Approach (ICD-10-PCS; 2017-03-09)
PROC: 041L0JL Bypass Left Femoral Artery to Popliteal Artery with Synthetic Substitute, Open Approach (ICD-10-PCS; 2017-03-09)
PROC: 04CL0ZZ Extirpation of Matter from Left Femoral Artery, Open Approach (ICD-10-PCS; 2017-03-09)
PROC: 04CN0ZZ Extirpation of Matter from Left Popliteal Artery, Open Approach (ICD-10-PCS; 2017-03-09)
PROC: 5A09357 Assistance with Respiratory Ventilation, Less than 24 Consecutive Hours, Continuous Positive Airway Pressure (ICD-10-PCS; 2017-03-11)
PROC: B246ZZ4 Ultrasonography of Right and Left Heart, Transesophageal (ICD-10-PCS; 2017-03-16)
PROC: 06H03DZ Insertion of Intraluminal Device into Inferior Vena Cava, Percutaneous Approach (ICD-10-PCS; principal; 2017-03-21)
PROC: 0T9B70Z Drainage of Bladder with Drainage Device, Via Natural or Artificial Opening (ICD-10-PCS; 2017-04-01)
DX: I70.202 Unspecified atherosclerosis of native arteries of extremities, left leg (principal); J96.01 Acute respiratory failure with hypoxia; I26.92 Saddle embolus of pulmonary artery without acute cor pulmonale; I63.541 Cerebral infarction due to unspecified occlusion or stenosis of right cerebellar artery; I62.9 Nontraumatic intracranial hemorrhage, unspecified; J81.0 Acute pulmonary edema; J18.9 Pneumonia, unspecified organism; D69.6 Thrombocytopenia, unspecified; I25.3 Aneurysm of heart; J98.11 Atelectasis; R47.01 Aphasia; I82.403 Acute embolism and thrombosis of unspecified deep veins of lower extremity, bilateral; Q21.1 Atrial septal defect; J44.0 Chronic obstructive pulmonary disease with (acute) lower respiratory infection; N13.8 Other obstructive and reflux uropathy; G81.90 Hemiplegia, unspecified affecting unspecified side; R06.03 Acute respiratory distress; I25.10 Atherosclerotic heart disease of native coronary artery without angina pectoris; I48.0 Paroxysmal atrial fibrillation; R00.1 Bradycardia, unspecified; I10 Essential (primary) hypertension; E11.51 Type 2 diabetes mellitus with diabetic peripheral angiopathy without gangrene; J45.998 Other asthma; I71.2 Thoracic aortic aneurysm, without rupture; Z95.5 Presence of coronary angioplasty implant and graft; G47.33 Obstructive sleep apnea (adult) (pediatric); R09.82 Postnasal drip; K21.9 Gastro-esophageal reflux disease without esophagitis; Z87.891 Personal history of nicotine dependence; I08.1 Rheumatic disorders of both mitral and tricuspid valves; E87.70 Fluid overload, unspecified; Z86.718 Personal history of other venous thrombosis and embolism; Z86.73 Personal history of transient ischemic attack (TIA), and cerebral infarction without residual deficits; R47.1 Dysarthria and anarthria; Z82.3 Family history of stroke; Z82.49 Family history of ischemic heart disease and other diseases of the circulatory system; D75.82 Heparin induced thrombocytopenia (HIT); E78.00 Pure hypercholesterolemia, unspecified; I71.4 Abdominal aortic aneurysm, without rupture; N28.1 Cyst of kidney, acquired; K40.20 Bilateral inguinal hernia, without obstruction or gangrene, not specified as recurrent; K76.89 Other specified diseases of liver; Z66 Do not resuscitate; Z51.5 Encounter for palliative care; I27.20 Pulmonary hypertension, unspecified; K59.00 Constipation, unspecified; N40.1 Benign prostatic hyperplasia with lower urinary tract symptoms; R19.7 Diarrhea, unspecified; R97.0 Elevated carcinoembryonic antigen [CEA]; R19.00 Intra-abdominal and pelvic swelling, mass and lump, unspecified site; F32.9 Major depressive disorder, single episode, unspecified
CPT/HCPCS: 36247; 36600; 37191; 70450; 70498; 70544; 70548; 70551; 70553; 71045; 71275; 74018; 74176; 75635; 75710; 75774; 76705; 76775; 76937; 76999; 80048; 80053; 80061; 80202; 80307; 81001; 81240; 81241; 82105; 82272; 82378; 82550; 82607; 82746; 82805; 83010; 83605; 83615; 83735; 83880; 84153; 84439; 84443; 84484; 85025; 85027; 85060; 85300; 85303; 85306; 85379; 85384; 85597; 85610; 85613; 85730; 86022; 86146; 86147; 86148; 86301; 86304; 86403; 86592; 86850; 86900; 86901; 86920; 87040; 87077; 87086; 87186; 87449; 87493; 87641; 87804; 88304; 93005; 93225; 93226; 93306; 93312; 93320; 93325; 93880; 93970; 94002; 94003; 94150; 94640; 94664; 95819; 99152; 99153; 99285; A9579; C1757; C1760; C1768; C1769; C1880; C1887; C1894; G0269; G0378; G8987-GP; G8988-GP; J0171; J0461; J0690; J0883; J1100; J1644; J1650; J1940; J2250; J2270; J2405; J2543; J2710; J2720; J2920; J3010; J3370; J3480; J7030; J7040; J7050; J7120; J7512; J7613; Q9967

== ENCOUNTER 2017-04-05 17:25 | Inpatient (IN) | payer MEDICARE, BC ==
[~2017-04-05] VITALS: Ht 180.3 cm; Wt 115.7 kg
[2017-04-05 17:05] VITALS: BP 81/50; PULSE 92; RESP 18; TEMP 96.7; O2SAT 94
[~2017-04-05 17:25] MED LIST: AMIO200T PO; ASPI81 CHEW; ATOR80TA45 PO; COUM2TAB PO; CRANCAP2 PO; DULO1CAP3 PO; FINA5TAB2 PO; FISH1000; FLUT1INH7 INH; GABA300C5 PO; LISI10TA3 PO; METO-309 PO; MIRA3350 PO; MONT10TA4 PO; MULTTAB67 PO; PANT40TA3 PO; PRED5TAB PO; VENTAER INH
[2017-04-05] MEDS ORDERED: ONDANSETRON HCL 4 MG/2 ML VIAL IVP PRN (18:15)
[2017-04-05] MEDS ORDERED: MAGNESIUM HYDROXIDE SUSP 30 ML CUP PO PRN (18:15)
[2017-04-05] MEDS ORDERED: BISACODYL 10 MG SUPP RECTAL PRN (18:15)
[2017-04-05] MEDS ORDERED: LACTULOSE SYRUP 20 GM/30 ML CUP PO PRN (18:15)
[2017-04-05] MEDS ORDERED: SODIUM CHLORIDE 0.9% FLUSH 10 ML FLUSH IV FLUSH PRN (18:15)
[2017-04-05] MEDS ORDERED: SENNOSIDES 8.6 MG TAB PO PRN (18:15)
[2017-04-05] MEDS ORDERED: NALOXONE HCL 0.4 MG/ML AMP IV PUSH PRN (18:15)
[2017-04-05] MEDS ORDERED: RESP: ALBUTEROL 2.5 MG/IPRATROPIUM 0.5 MG NEB (PRN) NEB (18:30)
[2017-04-05] MEDS ORDERED: oxyCODONE/ACETAMINOPHEN 5 MG/325 MG TAB PO PRN (18:30)
[2017-04-05 19:48] VITALS: PULSE 93
[2017-04-05] MEDS ORDERED: PILL SPLITTER OTHER PRN (20:00)
[2017-04-05] MEDS: RESP: ALBUTEROL 2.5 MG/IPRATROPIUM 0.5 MG NEB (SCH) NEB (20:37)
[2017-04-05 20:41] VITALS: O2SAT 94
[2017-04-05 21:10] VITALS: BP 82/52; PULSE 98; RESP 22; TEMP 97.8; O2SAT 97
[2017-04-05] MEDS: MONTELUKAST SODIUM 10 MG TAB PO SCH (21:19)
[2017-04-05] MEDS: DOCUSATE SODIUM 50 MG/SENNA 8.6 MG TAB PO SCH (21:19)
[2017-04-05] MEDS: SODIUM CHLORIDE 0.9% FLUSH 10 ML FLUSH IV FLUSH SCH (21:19)
[2017-04-05] MEDS: ATORVASTATIN 40 MG TAB PO SCH (21:19)
[2017-04-05] MEDS: SODIUM CHLOR 0.9% 1000 ML INJ 1,000 ML IV SCH (21:21)
[2017-04-05 23:00] VITALS: BP 101/53; PULSE 95; RESP 18; TEMP 97.4; O2SAT 96
[2017-04-05] MEDS: ZINC OXIDE 40% OINT 60 GM TUBE TOPICAL SCH (23:00)
[2017-04-05 23:48] VITALS: PULSE 96
[2017-04-06] VITALS (12 sets, daily range): BP systolic 84–105; BP diastolic 54–60; PULSE 98–110; RESP 18–20; TEMP 97.4–98.4; O2SAT 93–95
[2017-04-06] MEDS: SODIUM CHLOR 0.9% 1000 ML INJ 1,000 ML IV SCH ×4 (01:13→23:21)
[2017-04-06 08:38] LABS: INTERNATIONAL NORMALIZED RATIO 3.7 RATIO; PROTHROMBIN TIME - PATIENT 37.5 SEC (9.8-11.6)
[2017-04-06] MEDS: AMIODARONE 200 MG TAB PO SCH (08:43)
[2017-04-06] MEDS: MULTIVITAMIN TAB PO SCH (08:44)
[2017-04-06] MEDS: PANTOPRAZOLE SOD 40 MG DELAYED RELEASE TAB PO SCH (08:44)
[2017-04-06] MEDS: DOCUSATE SODIUM 50 MG/SENNA 8.6 MG TAB PO SCH ×2 (08:44→20:22)
[2017-04-06] MEDS: ASPIRIN EC 81 MG TABEC PO SCH (08:45)
[2017-04-06] MEDS: SODIUM CHLORIDE 0.9% FLUSH 10 ML FLUSH IV FLUSH SCH ×2 (08:47→20:22)
[2017-04-06] MEDS: ZINC OXIDE 40% OINT 60 GM TUBE TOPICAL SCH ×2 (08:47→20:22)
[2017-04-06 08:51] LABS: ALBUMIN 1.8 GM/DL (3.4-5.0); BICARBONATE 21.1 MEQ/L (21.0-32.0); CALCIUM 7.3 MG/DL (8.5-10.1); CALCIUM-PROTEIN CORRECTED 8.4 MG/DL (8.5-10.1); CREATININE 0.69 MG/DL (0.60-1.30); TOTAL BILIRUBIN ADULT 0.4 MG/DL (0.2-1.0); TOTAL PROTEIN 5.1 GM/DL (6.4-8.2)
[2017-04-06] MEDS: RESP: ALBUTEROL 2.5 MG/IPRATROPIUM 0.5 MG NEB (SCH) NEB ×4 (08:57→20:38)
[2017-04-06] MEDS ORDERED: predniSONE 5 MG TAB PO SCH (09:00)
[2017-04-06] MEDS: cefTRIAXone INJ 1,000 MG in SODIUM CHLORIDE 0.9% INJ 100 ML IV SCH (09:01)
[2017-04-06] MEDS: DULoxetine HCl DR 60 MG CAP PO SCH (09:32)
[2017-04-06] MEDS: FLUTICASONE 200 MCG/VILANTEROL 25 MCG INHALER INH SCH (09:32)
--- NOTE | 2017-04-06 10:14 | HHI.HP ---
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 Pt has been hypotensive over the last several days beginning 04/02 ( 94/60) and progressing yesterday to 80s/50s and low of 78/42 with normal HR in 60s-80s, afebrile on 3-4L NC. Pt sleeps with his CPAP. Hypotension is attributed largely to dehydration as pt has had reduced PO intake despite frequent encouragement from staff. Two 500ml boluses were given 04/04, then scheduled NS IVF were started yesterday morning. Today pt BP improved to 105/57 with NS IVF running at 150ml/hr. In addition, Flomax has been discontinued. Pt has no complaint of pain this morning, is voiding via matthews with 500ml yellow urine and no sediment. Denies CP, SOB, N/V/D, and leg pain. (Fermin Padron MD R1) Review of Systems Constitutional: DENIES: Fever, Chills, Dizziness Eyes: DENIES: Vision loss Respiratory: COMPLAINS OF: Shortness of breath, DENIES: Cough, Wheezing Cardiovascular: DENIES: Chest pain, Palpitations Gastrointestinal: DENIES: Abdominal pain, Constipation, Diarrhea, Nausea, Vomiting Musculoskeletal: DENIES: Joint pain, Muscle aches Integumentary: DENIES: Rash Neurologic: DENIES: Headache (Fermin Padron MD R1) Past Family Social History Past Medical History Coronary artery disease status post 3 stents placed in 2003 Hypertension BPH GERD Peripheral artery disease Erythrocytosis Episode of transient global amnesia 3 years ago Hemorrhagic CVA 03/14/17 Past Surgical History Coronary artery stent placement 3 in 2003 Cholecystectomy 2011 Herniated disc repair 2005 Fempop bypass 03/09 Reported Medications Reported Meds & Active Scripts Active Prednisone 5 Mg Tab 15 Mg PO DAILY Coumadin (Warfarin) 2 Mg Tab 2 Mg PO DAILY@16 Pantoprazole (Pantoprazole Sodium) 40 Mg Tab 40 Mg PO DAILY Montelukast (Montelukast Sodium) 10 Mg Tab 10 Mg PO HS Duloxetine DR (Duloxetine HCl) 60 Mg Capdr 60 Mg PO DAILY Tgt Aspirin (Aspirin) 81 Mg Chw 162 Mg CHEW DAILY Lopressor (Metoprolol Tartrate) 50 Mg Tab 50 Mg PO Q12HR Amiodarone (Amiodarone HCl) 200 Mg Tab 400 Mg PO Q12HR Reported Multiple Vitamin 1 Tab 1 Tab PO DAILY Fish Oil (Haskell-3 Fatty Acids) 340 Mg-1,000 Mg Cap Cranberry Urinary Comfort (Vitamins C & E) 1 Cap 2 Cap PO DAILY Miralax Powder (Polyethylene Glycol 3350 Powder) 17 Gm Powd 17 Gm PO DAILY Mix and dissolve one measuring cap-ful (17 grams) in water or juice. Ventolin Hfa 18 GM Inh (Albuterol Sulfate) 90 Mcg/Act Aer 2 Puff INH Q4-6H PRN Breo Ellipta Inh (Fluticasone/Vilanterol) 200-25 Mcg/Act Inh 1 Puff INH DAILY Use daily at the same time. Finasteride 5 Mg Tab 5 Mg PO DAILY Do not crush. Lisinopril 10 Mg Tab 10 Mg PO DAILY Atorvastatin (Atorvastatin Calcium) 80 Mg Tab 80 Mg PO HS Gabapentin 300 Mg Cap 300 Mg PO BID (Fermin Padron MD R1) Allergies: Coded Allergies: chocolate flavor (Verified Allergy, Unknown, 03/05/17) orange juice (Verified Allergy, Unknown, 03/05/17) peanut (Verified Allergy, Unknown, 03/05/17) Uncoded Allergies: granulated sugar (Allergy, Unknown, 03/05/17) Active Ordered Medications Reported Meds & Active Scripts Active Prednisone 5 Mg Tab 15 Mg PO DAILY Coumadin (Warfarin) 2 Mg Tab 2 Mg PO DAILY@16 Pantoprazole (Pantoprazole Sodium) 40 Mg Tab 40 Mg PO DAILY Montelukast (Montelukast Sodium) 10 Mg Tab 10 Mg PO HS Duloxetine DR (Duloxetine HCl) 60 Mg Capdr 60 Mg PO DAILY Tgt Aspirin (Aspirin) 81 Mg Chw 162 Mg CHEW DAILY Lopressor (Metoprolol Tartrate) 50 Mg Tab 50 Mg PO Q12HR Amiodarone (Amiodarone HCl) 200 Mg Tab 400 Mg PO Q12HR Reported Multiple Vitamin 1 Tab 1 Tab PO DAILY Fish Oil (Haskell-3 Fatty Acids) 340 Mg-1,000 Mg Cap Cranberry Urinary Comfort (Vitamins C & E) 1 Cap 2 Cap PO DAILY Miralax Powder (Polyethylene Glycol 3350 Powder) 17 Gm Powd 17 Gm PO DAILY Mix and dissolve one measuring cap-ful (17 grams) in water or juice. Ventolin Hfa 18 GM Inh (Albuterol Sulfate) 90 Mcg/Act Aer 2 Puff INH Q4-6H PRN Breo Ellipta Inh (Fluticasone/Vilanterol) 200-25 Mcg/Act Inh 1 Puff INH DAILY Use daily at the same time. Finasteride 5 Mg Tab 5 Mg PO DAILY Do not crush. Lisinopril 10 Mg Tab 10 Mg PO DAILY Atorvastatin (Atorvastatin Calcium) 80 Mg Tab 80 Mg PO HS Gabapentin 300 Mg Cap 300 Mg PO BID Family History Mother - HTN Father - at young age from possible stroke Sister of cancer - colon, renal Other sister living Social History From [facility], living in [place] for 2 months Lives with No pets Drinks 1-2 beers with dinner, none this week No tobacco use since age of 18 No illicit drug use (Fermin Padron MD R1) Physical Exam Vital Signs Vital Signs Date Time Temp Pulse Resp B/P (MAP) Pulse Ox O2 Delivery O2 Flow Rate FiO2 04/06/17 04:00 Nasal Cannula 4.00 04/06/17 03:53 98 04/06/17 03:20 97.4 101 18 105/57 (73) 93 04/06/17 02:15 91/54 (66) 04/06/17 00:00 Nasal Cannula 4.00 04/05/17 23:48 96 04/05/17 23:00 97.4 95 18 101/53 (69) 96 04/05/17 21:10 97.8 98 22 82/52 (62) 97 2/21/18 20:41 94 Nasal Cannula 4.00 04/05/17 20:00 Nasal Cannula 4.00 04/05/17 19:48 93 04/05/17 17:05 96.7 92 18 81/50 (60) 94 Physical Exam GENERAL: Elderly gentleman lying in bed in NAD. HEENT: NCAT. MM improved/less dry. Lips no longer chapped. RESPIRATORY: CTAB. No increased work of breathing. CARDIOVASCULAR: RRR, no m/r/g. ABDOMEN: Soft, nondistended, nontender with +BS. No masses appreciated. MUSCULOSKELETAL: No edema appreciated. No calf tenderness to palpation today. 2 + DP and PT pulses bilaterally. SCDs in place on bilateral LEs. LLE: Femoropopliteal bypass incision sites, CDI. Moving toes and legs b/l. SKIN: Essentially clear with no significant rash or lesions. Adequate skin turgor. NEURO/PSYCH: Clearly enunciated speech today--louder than all previous days. AOx3. CN 2-12 grossly intact. Sensation intact. Patient able to move all 4 extremities spontaneously. Laboratory Laboratory Tests Test 04/06/17 07:36 Prothrombin Time 37.5 SEC Prothromb Time International Ratio 3.7 RATIO Blood Urea Nitrogen 38 MG/DL Creatinine 0.69 MG/DL Random Glucose 91 MG/DL Total Protein 5.1 GM/DL Albumin 1.8 GM/DL Calcium Level 7.3 MG/DL Alkaline Phosphatase 58 U/L Aspartate Amino Transf (AST/SGOT) 72 U/L Alanine Aminotransferase (ALT/SGPT) 160 U/L Total Bilirubin 0.4 MG/DL Sodium Level 134 MEQ/L Potassium Level 4.7 MEQ/L Chloride Level 104 MEQ/L Carbon Dioxide Level 21.1 MEQ/L Anion Gap 9 MEQ/L Estimat Glomerular Filtration Rate 111 ML/MIN Protein Corrected Calcium 8.4 MG/DL (Fermin Padron MD R1) Septic Shock Reassessment Septic shock perfusion: reassessment completed (Fermin Padron MD R1) Caprini VTE Risk Assessment Caprini VTE Risk Assessment: Mod/High Risk (score >= 2) (Fermin Padron MD R1) Assessment and Plan Assessment and Plan 76YO male with CAD, PAD, hypercoagulable with recent DVTs s/p IVC filter, and elevated tumor markers presents back from [facility] with persistent hypotension with fernando 78/42 yesterday. Pt is hemodynamically stable with Hgb 12.7/Hct 38.1 and BPs this morning stable at 105/57. Pt asymptomatic, afebrile and in NAD. Code Status DNR Discussed Condition With Remigio Tang and Kamila Gilliam (Fermin Padron MD R1) Attending Attestation Patient seen and examined. Case reviewed and discussed with the resident team. Agree with plan of care as discussed with me and documented in the resident note. saw pt and his BPs are low but stable. he does not appear to be septic or in a crisis will give iv fluids and see how he does (Arianne Tang MD) Problem List: (1) Hypotension ICD Codes: I95.9 - Hypotension, unspecified Status: Acute Plan: Pt increasingly hypotensive since 04/02 at [facility] with fernando 78/42 yesterday in spite of fluid boluses. Likely 2/2 dehydration from reduced intake and pt depression. Pt started on scheduled IVF yesterday due to reduced/no PO intake in spite of frequent staff encouragement. Today, BP responding at 105/57 ; pt ate 100% of dinner last night. In addition, stopped Flomax which could have been contributing to hypotension -Monitor vitals frequently -Strict I/Os -Cr 1.10 on 04/03-->1.50 on 04/04-->1.05 04/05-->0.69 on 04/06 (2) Dehydration ICD Codes: E86.0 - Dehydration Status: Acute Plan: Pt with decreased PO likely 2/2 reduced PO intake and depression; hypotensive to 78/42 yesterday and was transferred back to [facility] from [facility] ; this morning at 105/57 -NS IVF @ 150ml/hr -Improved UOP overnight -Ate 100% of dinner last night -Cr 0.69 today -Diet to allow to bring in occasional food as well as Ensure/Boost supplements to encourage PO intake (3) UTI (urinary tract infection) ICD Codes: N39.0 - Urinary tract infection, site not specified Status: Acute Plan: Urine cx showing Klebsiella lizarraga-sensitive -Rocephin 1g IV q24h (04/02 - ) -Matthews output 575ml overnight, yellow with no sediment -Urology consulted in [place] rehab--following recs --Keep matthews in till 04/10, then intermittent caths w/spontaneous voiding trial (4) Hypercoagulopathy ICD Codes: D68.59 - Other primary thrombophilia Status: Chronic Plan: -Hematology consulted, appreciated recommendations -Pt home dose Effient discontinued following hemorrhagic CVA 03/14 -Discontinued Argatroban ( 03/29/17-04/02/17), bridged to Coumadin (2mg daily) , INR daily until stable (INR 3.7 today) -Discontinue Heparin gtt (03/27/17-03/29/17) due to decreasing platelet counts and positive HIIT antibodies -Heme adjusting coumadin dosing as necessary Tumor markers ordered for suspected metastasis AFP, CA125, PSA wnl CA 19-9 elevated at 171.1 and CEA elevated at 5.3 CT Abd/pelvis w/o contrast demonstrated significant prostatic enlargement which appears to be causing a degree of bladder outlet obstruction. No evidence of inflammatory process within the abdomen or pelvis, no evidence of mass or adenopathy. -Hypercoagulable workup abnormal but not -Protein C, AT III high, however not clinically significant. -Antiphospholipid IgM antibody negative -Factor V Leiden mutation negative -Heparin Induced Platelet Antibody positive concerning for HIT, serotonin assay negative (5) Saddle embolism of pulmonary artery ICD Codes: I26.92 - Saddle embolus of pulmonary artery without acute cor pulmonale Status: Acute Plan: -CTA on 03/23 remarkable for saddle embolus with clot seen in both the right and left central pulmonary arteries. -Echo 2D doppler ordered for concerns of heart strain, results unremarkable for R heart strain Hematology consult and plan as above (6) CVA (cerebral vascular accident) ICD Codes: I63.9 - Cerebral infarction, unspecified Status: Acute Plan: -Neurology consulted previously, now signed off -Recommend systemic full intensity anticoagulation in the setting of hypercoagulable state. Hematology consulted as above -Continue Aspirin, Effient discontinued, as above bridged to warfarin with Hematology and pharmacy dosing -Neurologically stable -Neurosurgery consulted previously, now signed off -CT head reviewed, nonoperative mgt -Palliative care consulted on previous hospitalization; will consider reconsulting if pt status declines Previous Workup: Patient with slurred speech on 03/[address] and MRI showing R cerebellar edema and infarction consistent with CVA. -Head CT: 3.5 x 3.6 cm low attenuation area in the right cerebellar hemisphere area most characteristic of edema which could be secondary to underlying mass or infarction. Second smaller focal peripheral area of decreased attenuation involving the right parietal occipital watershed region concerning for edema as well. Further evaluation with MRI recommended. -Brain MRI: Proximally 5cm infarct of the right cerebellar hemisphere with small punctate infarcts in the right occipital lobe and left parietal lobe. Remote lacunar infarcts of the right basal ganglia and cerebellum. -Head MRA: Patient within normal limits for age -Neck MRA: No significant stenosis in the carotid arteries. Left vertebral artery is dominant. -Neck CTA: Minimal calcific plaquing nonstenotic bilateral carotid bulbs and initial segment of the right internal carotid. -Repeat Brain MRI: no significant change in the appearance of large acute infarction involving the right cerebellum as well as the much smaller acute infarctions involving the right occipital lobe and left high parietal cortex. -Repeat head CT: Stable right cerebellar infarction, fourth ventricle open, no signs of hydrocephalus (7) Paroxysmal atrial fibrillation ICD Codes: I48.0 - Paroxysmal atrial fibrillation Status: Acute Plan: -Cardiology consulted on previous hospitalization -SEAN: atrial septal aneurysm and PFO. PFO closure not recommended. Otherwise , unremarkable. -Paroxysmal atrial fibrillation noted 03/20 -Continue metoprolol 50mg PO q12hr and Amiodarone 200mg PO daily. (8) DVT (deep venous thrombosis) ICD Codes: I82.409 - Acute embolism and thrombosis of unspecified deep veins of unspecified lower extremity Status: Chronic Plan: -LE US 03/20/17: Positive venous Doppler bilaterally above the knee on the R and below the knee on the L. Lower extremity ultrasound 04/03 due to pt expressing pain in LLE calf: Both superficial and deep venous thrombosis of the left leg. Per discussion with Dr Whaley, no change in anticoagulation--pt high risk for another hemorrhagic stroke if argabatran restarted; continue coumadin dosing. 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 Status: Acute Plan: -Continue Duloxetine 60mg PO daily (10) Aorta aneurysm ICD Codes: I71.9 - Aortic aneurysm of unspecified site, without rupture Status: Chronic Plan: -4.3 cm ascending thoracic aortic aneurysm on CTA -Vascular surgery consulted on previous hospitalization -Thoracic aneurysm aneurysm will be managed medically and with close follow- up for imaging -Goal systolic blood pressure of less than 120 (11) Superficial femoral artery occlusion ICD Codes: I70.209 - Unspecified atherosclerosis of [place] arteries of extremities, unspecified extremity Status: Resolved Plan: -Vascular surgery consulted on previous hospitalization -TPA unsuccessful 03/08 -Patient status post left femoropopliteal bypass femoral endarterectomy popliteal endarterectomy and patch on 03/09 -Patient w/ hx of PAD (12) HTN (hypertension) ICD Codes: I10 - Essential (primary) hypertension Status: Chronic Plan: -Currently hypotensive -Holding Metoprolol tartrate 50 mg PO BID and Lisinopril 10mg which were previously prescribed -Goal systolic blood pressure of less than 120 due to thoracic aortic aneurysm (13) Abdominal mass ICD Codes: R19.00 - Intra-abdominal and pelvic swelling, mass and lump, unspecified site (14) CAD (coronary artery disease) ICD Codes: I25.10 - Atherosclerotic heart disease of [place] coronary artery without angina pectoris Status: Chronic Plan: -Patient with known CAD, status post MS and coronary stents placed in 2003 -Continue home atorvastatin 40 mg at night, ASA 81 mg daily (15) BPH (benign prostatic hyperplasia) ICD Codes: N40.0 - Benign prostatic hyperplasia without lower urinary tract symptoms Status: Chronic Plan: Urology consulted secondary to voiding dysfunction during stay in [facility] Urology recommendations 04/03: Maintain Matthews catheter to gravity drainage for at least one week (until 04/10). Then discontinue and resume clean intermittent catheterization 4 times daily. Continue Flomax. Patient will require outpatient workup to include cystoscopy and urodynamics sometime after discharge from rehabilitation facility. 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) ICD Codes: D75.82 - Heparin induced thrombocytopenia (HIT) Status: Acute Plan: HIIT antibody positive last hospitalization -Refrain from using Heparin if possible (18) PAD (peripheral artery disease) ICD Codes: I73.9 - Peripheral vascular disease, unspecified Status: Chronic Plan: As above -Pt with recent fempop bypass, failed tPA therapy -Vascular surgery consulted during last hospitalization (Dr Hernandez) (19) FEN/GI/PPx Status: Acute Plan: Fluids: NS IVF @ 150ml/hr due to decreased pt intake Electrolytes: wnl, will monitor daily BMP and replete as necessary Nutrition: Heart healthy diet and will allow his to bring in external food items and add Boost/Ensure supplements with meals to encourage PO intake GI: Protonix 40mg PO daily PPx: Heme and pharmacy dosing Coumadin due to hypercoagulability; also on ASA 81mg; SCDs bilaterally for mechanical AC as well PT eval and treat OT eval and treat (Fermin Padron MD R1) Physician Certification 2 Midnight Certification Type: Admission for Inpatient Services Order for Inpatient Services The services are ordered in accordance with Medicare regulations or non- Medicare payer requirements, as applicable. In the case of services not specified as inpatient-only, they are appropriately provided as inpatient services in accordance with the 2-midnight benchmark. Estimated LOS (days): 2 days is the estimated time the patient will need to remain in the hospital, assuming treatment plan goals are met and no additional complications. Post-Hospital Plan: Not yet determined (Fermin Padron MD R1) Problem Qualifiers (1) Hypotension: Qualified Codes: I95.1 - Orthostatic hypotension (2) UTI (urinary tract infection): Qualified Codes: N30.01 - Acute cystitis with hematuria (3) Saddle embolism of pulmonary artery: Qualified Codes: I26.92 - Saddle embolus of pulmonary artery without acute cor pulmonale (4) CVA (cerebral vascular accident): Qualified Codes: I63.341 - Cerebral infarction due to thrombosis of right cerebellar artery (5) DVT (deep venous thrombosis): (6) Aorta aneurysm: Qualified Codes: I71.9 - Aortic aneurysm of unspecified site, without rupture (7) HTN (hypertension): Qualified Codes: I10 - Essential (primary) hypertension (8) CAD (coronary artery disease): Qualified Codes: I25.10 - Atherosclerotic heart disease of [place] coronary artery without angina pectoris (9) BPH (benign prostatic hyperplasia): Qualified Codes: N40.1 - Benign prostatic hyperplasia with lower urinary tract symptoms; N13.8 - Other obstructive and reflux uropathy Fermin Padron MD R1 Apr 06, 2017 09:34 Arianne Tang MD Apr 07, 2017 10:37
[2017-04-06] MEDS: TAMSULOSIN HCL 0.4 MG CAP PO SCH (11:21)
[2017-04-06 12:34] LABS: BASOPHIL % 0.1 % (0.0-2.0); EOSINOPHIL # 0.1 TH/MM3 (0-0.4); EOSINOPHIL % 0.8 % (0.0-4.0); HEMATOCRIT 33.2 % (39.0-51.0); HEMOGLOBIN 11.1 GM/DL (13.0-17.0); LYMPH % 3.1 % (9.0-44.0); LYMPHOCYTE # 0.3 TH/MM3 (1.0-4.8); MEAN CELL VOLUME 87.5 FL (80.0-100.0); MEAN CORPUSCULAR HEMOGLOBIN 29.2 PG (27.0-34.0); MEAN CORPUSCULAR HGB CONC 33.3 % (32.0-36.0); MEAN PLATELET VOLUME 8.5 FL (7.0-11.0); MONO % 4.6 % (0.0-8.0); MONOCYTE # 0.4 TH/MM3 (0-0.9); NEUT % 91.4 % (16.0-70.0); PLATELET COUNT 87 TH/MM3 (150-450); RED BLOOD COUNT 3.79 MIL/MM3 (4.50-5.90); RED CELL DISTRIBUTION WIDTH 16.4 % (11.6-17.2); WHITE BLOOD COUNT 8.8 TH/MM3 (4.0-11.0)
[2017-04-06 13:26] LABS: BURR CELLS 1+ (NORMAL)
[2017-04-06] MEDS ORDERED: WARFARIN SOD 2 MG TAB PO SCH (16:00)
[2017-04-06] MEDS: ATORVASTATIN 40 MG TAB PO SCH (20:22)
[2017-04-06] MEDS: MONTELUKAST SODIUM 10 MG TAB PO SCH (20:22)
[2017-04-07] VITALS (12 sets, daily range): BP systolic 80–128; BP diastolic 57–67; PULSE 98–111; RESP 12–18; TEMP 94.1–97.9; O2SAT 91–98
--- NOTE | 2017-04-07 05:00 | PD.ONC.PN ---
Subjective Subjective Remarks Late note entry. Patient seen at bedside at 8 pm on 04/06/2017. His speech is improved, currently talking on the phone with his . Spoke with his who reports a great improvement in his his speech over the past few days. Objective Data Date Time Temp Pulse Resp B/P (MAP) Pulse Ox O2 Delivery O2 Flow Rate FiO2 04/07/17 03:14 97.9 106 18 88/60 (69) 96 04/06/17 23:50 105 04/06/17 23:23 97.8 105 20 84/57 (66) 94 04/06/17 20:42 Nasal Cannula 4.00 04/06/17 20:40 94 Nasal Cannula 4.00 04/06/17 20:09 97.8 104 18 87/58 (68) 95 04/06/17 20:05 102 04/06/17 16:00 97.6 100 18 90/60 (70) 95 04/06/17 16:00 109 04/06/17 12:00 98.4 109 18 88/54 (65) 94 04/06/17 12:00 110 04/06/17 08:57 93 Nasal Cannula 4.00 04/06/17 08:00 99 04/06/17 08:00 97.6 99 18 93/56 (68) 95 04/06/17 08:00 Nasal Cannula 4.00 04/07/17 04/07/17 04/07/17 07:00 15:00 23:00 Intake Total 1000 ml Balance 1000 ml Result Diagram: 04/06/17 1150 04/06/17 0736 Laboratory Results Laboratory Tests Test 04/06/17 07:36 04/06/17 11:50 Prothrombin Time 37.5 SEC Prothromb Time International Ratio 3.7 RATIO Blood Urea Nitrogen 38 MG/DL Creatinine 0.69 MG/DL Random Glucose 91 MG/DL Total Protein 5.1 GM/DL Albumin 1.8 GM/DL Calcium Level 7.3 MG/DL Alkaline Phosphatase 58 U/L Aspartate Amino Transf (AST/SGOT) 72 U/L Alanine Aminotransferase (ALT/SGPT) 160 U/L Total Bilirubin 0.4 MG/DL Sodium Level 134 MEQ/L Potassium Level 4.7 MEQ/L Chloride Level 104 MEQ/L Carbon Dioxide Level 21.1 MEQ/L Anion Gap 9 MEQ/L Estimat Glomerular Filtration Rate 111 ML/MIN Protein Corrected Calcium 8.4 MG/DL White Blood Count 8.8 TH/MM3 Red Blood Count 3.79 MIL/MM3 Hemoglobin 11.1 GM/DL Hematocrit 33.2 % Mean Corpuscular Volume 87.5 FL Mean Corpuscular Hemoglobin 29.2 PG Mean Corpuscular Hemoglobin Concent 33.3 % Red Cell Distribution Width 16.4 % Platelet Count 87 TH/MM3 Mean Platelet Volume 8.5 FL Neutrophils (%) (Auto) 91.4 % Lymphocytes (%) (Auto) 3.1 % Monocytes (%) (Auto) 4.6 % Eosinophils (%) (Auto) 0.8 % Basophils (%) (Auto) 0.1 % Neutrophils # (Auto) 8.0 TH/MM3 Lymphocytes # (Auto) 0.3 TH/MM3 Monocytes # (Auto) 0.4 TH/MM3 Eosinophils # (Auto) 0.1 TH/MM3 Basophils # (Auto) 0.0 TH/MM3 CBC Comment AUTO DIFF Differential Comment AUTO DIFF CONFIRMED Valier Cells 1+ Administered Medications Medications (Trade) Dose Ordered Sig/Lizbeth Route PRN Reason Start Time Stop Time Status Last Admin Dose Admin Sodium Chloride 1,000 ml @ 150 mls/hr [id number] IV 04/05/17 20:00 04/06/17 23:21 Sodium Chloride (NS Flush) 2 ml BID IV FLUSH 04/05/17 21:00 04/05/17 21:19 Senna/Docusate Sodium (Arleth-Colace) 1 tab BID PO 04/05/17 21:00 04/06/17 20:22 Ceftriaxone Sodium 1000 mg/ Sodium Chloride 100 ml @ 200 mls/hr Q24H IV 04/06/17 10:00 04/06/17 09:01 Albuterol/ Ipratropium (Duoneb Neb) 1 ampule QID NEB NEB 04/05/17 20:00 04/06/17 20:38 Amiodarone HCl (Cordarone) 200 mg DAILY PO 04/06/17 09:00 04/06/17 08:43 Aspirin (Ecotrin Ec) 162 mg DAILY PO 04/06/17 09:00 04/06/17 08:45 Atorvastatin Calcium (Lipitor) 40 mg HS PO 04/05/17 21:00 04/06/17 20:22 Duloxetine HCl (Cymbalta Dr) 60 mg DAILY PO 04/06/17 09:00 04/06/17 09:32 Fluticasone/ Vilanterol (Breo Ellipta 200-25 Inh) 1 puff DAILY INH 04/06/17 09:00 04/06/17 09:32 Montelukast Sodium (Singulair) 10 mg HS PO 04/05/17 21:00 04/06/17 20:22 Multivitamins (Theragran) 1 tab DAILY PO 04/06/17 09:00 04/06/17 08:44 Oxycodone/ Acetaminophen (Percocet 5-325 Mg) 1 tab Q4H PRN PO pain1-5 04/05/17 18:30 04/06/17 20:22 Pantoprazole Sodium (Protonix) 40 mg DAILY PO 04/06/17 09:00 04/06/17 08:44 Prednisone (Deltasone) 7.5 mg DAILY PO 04/06/17 09:00 04/08/17 08:59 04/06/17 08:46 Zinc Oxide (Desitin 40% Oint) 1 applic BID TOPICAL 04/05/17 21:00 04/06/17 20:22 Tamsulosin HCl (Flomax) 0.4 mg DAILY PO 04/06/17 10:45 04/06/17 11:21 Objective Remarks GENERAL: Well-nourished, well-developed patient. SKIN: Warm and dry. HEAD: Normocephalic. EYES: No scleral icterus. No injection or drainage. NECK: Supple, trachea midline. No JVD or lymphadenopathy. LYMPHATIC: No adenopathy. CARDIOVASCULAR: Regular rate and rhythm without murmurs. RESPIRATORY: Breath sounds equal bilaterally. No accessory muscle use. GASTROINTESTINAL: Abdomen soft, non-tender, nondistended. EXTREMITIES: No cyanosis, or edema. Assessment/Plan Assessment 1. VTE: arterial thrombosis s/p fem-pop bypass, bilateral lower extremity VTE , saddle PE. Transitioned from argatroban to warfarin. INR elevated to 3.7, continue to monitor and adjust warfarin dosing 2. History of CVA with hemorragaic component: risks vs benefits of anticoagulation discussed with patient and 3. Thrombocytopenia: s/p full work up which was unrevealing. 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 Will perform further work up for evaluation of TCP. Cheryle Coleman MD Apr 07, 2017 05:00
[2017-04-07 05:54] LABS: AUTOMATED NEUTROPHIL # 7.4 TH/MM3 (1.8-7.7); BASOPHIL % 0.4 % (0.0-2.0); EOSINOPHIL # 0.1 TH/MM3 (0-0.4); EOSINOPHIL % 1.4 % (0.0-4.0); HEMOGLOBIN 10.7 GM/DL (13.0-17.0); LYMPH % 4.2 % (9.0-44.0); LYMPHOCYTE # 0.4 TH/MM3 (1.0-4.8); MEAN CELL VOLUME 86.9 FL (80.0-100.0); MEAN CORPUSCULAR HEMOGLOBIN 29.1 PG (27.0-34.0); MEAN CORPUSCULAR HGB CONC 33.5 % (32.0-36.0); MEAN PLATELET VOLUME 7.9 FL (7.0-11.0); MONO % 4.8 % (0.0-8.0); MONOCYTE # 0.4 TH/MM3 (0-0.9); NEUT % 89.2 % (16.0-70.0); PLATELET COUNT 104 TH/MM3 (150-450); RED BLOOD COUNT 3.68 MIL/MM3 (4.50-5.90); RED CELL DISTRIBUTION WIDTH 16.5 % (11.6-17.2); WHITE BLOOD COUNT 8.3 TH/MM3 (4.0-11.0)
[2017-04-07 06:11] LABS: IRON (FE) 16 MCG/DL (65-175)
[2017-04-07] MEDS: SODIUM CHLOR 0.9% 1000 ML INJ 1,000 ML IV SCH ×2 (06:14→17:54)
[2017-04-07 06:19] LABS: INTERNATIONAL NORMALIZED RATIO 2.5 RATIO; PROTHROMBIN TIME - PATIENT 25.7 SEC (9.8-11.6)
[2017-04-07 06:37] LABS: FERRITIN 318 NG/ML (26-388); FOLATE 16.1 NG/ML (3.1-17.5); TOTAL IRON BINDING CAPACITY 200 MCG/DL (250-450)
[2017-04-07] MEDS: RESP: ALBUTEROL 2.5 MG/IPRATROPIUM 0.5 MG NEB (SCH) NEB ×4 (08:30→20:19)
[2017-04-07] MEDS: FLUTICASONE 200 MCG/VILANTEROL 25 MCG INHALER INH SCH (09:48)
[2017-04-07] MEDS: PANTOPRAZOLE SOD 40 MG DELAYED RELEASE TAB PO SCH (09:49)
[2017-04-07] MEDS: MULTIVITAMIN TAB PO SCH (09:49)
[2017-04-07] MEDS: DULoxetine HCl DR 60 MG CAP PO SCH (09:49)
[2017-04-07] MEDS: DOCUSATE SODIUM 50 MG/SENNA 8.6 MG TAB PO SCH ×2 (09:50→21:00)
[2017-04-07] MEDS: SODIUM CHLORIDE 0.9% FLUSH 10 ML FLUSH IV FLUSH SCH ×2 (09:50→21:00)
[2017-04-07] MEDS: ASPIRIN EC 81 MG TABEC PO SCH (09:50)
[2017-04-07] MEDS: cefTRIAXone INJ 1,000 MG in SODIUM CHLORIDE 0.9% INJ 100 ML IV SCH (09:50)
[2017-04-07] MEDS: ZINC OXIDE 40% OINT 60 GM TUBE TOPICAL SCH ×2 (09:50→21:00)
[2017-04-07] MEDS: AMIODARONE 200 MG TAB PO SCH (09:50)
[2017-04-07] MEDS: TAMSULOSIN HCL 0.4 MG CAP PO SCH (09:50)
--- NOTE | 2017-04-07 10:07 | HHI.HP ---
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 Diagnosis: Principal (10) Aorta aneurysm Diagnosis: Principal (11) Superficial femoral artery occlusion Diagnosis: Principal (12) HTN (hypertension) Diagnosis: Principal (13) Abdominal mass Diagnosis: Principal (14) CAD (coronary artery disease) Diagnosis: Principal (15) BPH (benign prostatic hyperplasia) Diagnosis: Principal (16) Dysarthria Diagnosis: Principal (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) Diagnosis: Principal (18) PAD (peripheral artery disease) Diagnosis: Principal (19) FEN/GI/PPx Diagnosis: Principal International Travel<30 Days: No Contact w/Intl Traveler<30days: No Known Affected Area: No History of Present Illness Mr Gallagher is a pleasant 76YO male w/PMHx CAD (s/p PR and 3 cardiac stents 2003) , PAD (s/p fempop bypass 03/09), HTN, 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 Pt has been hypotensive over the last several days beginning 04/02 ( 94/60) and progressing yesterday to 80s/50s and low of 78/42 with normal HR in 60s-80s, afebrile on 3-4L NC. Pt sleeps with his CPAP. Hypotension is attributed largely to dehydration as pt has had reduced PO intake despite frequent encouragement from staff. Two 500ml boluses were given 04/04, then scheduled NS IVF were started yesterday morning. Today pt BP improved to 105/57 with NS IVF running at 150ml/hr. In addition, Flomax had been discontinued. Pt has no complaint of pain this morning, is voiding via matthews with 500ml yellow urine and no sediment. Denies CP, SOB, N/V/D, and leg pain. He feels good. Is speaking well and taking more po. Ordered calorie count and will stop iv fluids as he is doing well with his drinking fluids. Considering perhaps adrenal insufficiency as his prednisone was taken for a month and has been being tapered down but the tapering to less than 10 mg happened during this time course. Will try increasing his steroids today to see if his BPs respond. Review of Systems ROS Limitations: Clinical Condition Constitutional: COMPLAINS OF: Fatigue, DENIES: Diaphoretic episodes, Night Sweats Endocrine: DENIES: Polydipsia, Polyuria, Polyphagia Eyes: DENIES: Photosensitivity Ears, nose, mouth, throat: DENIES: Throat pain Respiratory: COMPLAINS OF: Apneas, DENIES: Cough, Snoring, Shortness of breath Cardiovascular: DENIES: Chest pain Gastrointestinal: DENIES: Abdominal pain, Difficulty Swallowing Genitourinary: COMPLAINS OF: Hematuria Musculoskeletal: DENIES: Joint pain Integumentary: DENIES: Abnormal pigmentation, Rash Neurologic: COMPLAINS OF: Abnormal gait, Poor Balance, DENIES: Seizures Psychiatric: COMPLAINS OF: Confusion, Depression, DENIES: Hallucinations, Agitation, Delusions Other Constitutional: DENIES: Fever, Chills, Dizziness Eyes: DENIES: Vision loss Respiratory: COMPLAINS OF: Shortness of breath, DENIES: Cough, Wheezing Cardiovascular: DENIES: Chest pain, Palpitations Gastrointestinal: DENIES: Abdominal pain, Constipation, Diarrhea, Nausea, Vomiting Musculoskeletal: DENIES: Joint pain, Muscle aches Integumentary: DENIES: Rash Neurologic: DENIES: Headache Past Family Social History Past Medical History Coronary artery disease status post 3 stents placed in 2003 Hypertension BPH GERD Peripheral artery disease Erythrocytosis Episode of transient global amnesia 3 years ago Hemorrhagic CVA 03/14/17 Past Surgical History Coronary artery stent placement 3 in 2003 Cholecystectomy 2011 Herniated disc repair 2005 Fempop bypass 03/09 Reported Medications Multiple Vitamin 1 Tab 1 Tab PO DAILY Fish Oil ([place]-3 Fatty Acids) 340 Mg-1,000 Mg Cap Cranberry Urinary Comfort (Vitamins C & E) 1 Cap 2 Cap PO DAILY Miralax Powder (Polyethylene Glycol 3350 Powder) 17 Gm Powd 17 Gm PO DAILY Mix and dissolve one measuring cap-ful (17 grams) in water or juice. Ventolin Hfa 18 GM Inh (Albuterol Sulfate) 90 Mcg/Act Aer 2 Puff INH Q4-6H PRN Breo Ellipta Inh (Fluticasone/Vilanterol) 200-25 Mcg/Act Inh 1 Puff INH DAILY Use daily at the same time. Finasteride 5 Mg Tab 5 Mg PO DAILY Do not crush. Lisinopril 10 Mg Tab 10 Mg PO DAILY Atorvastatin (Atorvastatin Calcium) 80 Mg Tab 80 Mg PO HS Gabapentin 300 Mg Cap 300 Mg PO BID Allergies: Coded Allergies: chocolate flavor (Verified Allergy, Unknown, 03/05/17) orange juice (Verified Allergy, Unknown, 03/05/17) peanut (Verified Allergy, Unknown, 03/05/17) Uncoded Allergies: granulated sugar (Allergy, Unknown, 03/05/17) Family History Mother - HTN Father - at young age from possible stroke Sister of cancer - colon, renal Other sister living Social History From [facility], living in [place] for 2 months Lives with No pets Drinks 1-2 beers with dinner at home No tobacco use since age of 18 No illicit drug use Physical Exam Vital Signs Vital Signs Date Time Temp Pulse Resp B/P (MAP) Pulse Ox O2 Delivery O2 Flow Rate FiO2 04/07/17 08:31 97 Nasal Cannula 4.00 04/07/17 04:00 101 04/07/17 04:00 Nasal Cannula 4.00 04/07/17 03:14 97.9 106 18 88/60 (69) 96 04/07/17 00:00 Nasal Cannula 4.00 04/06/17 23:50 105 04/06/17 23:23 97.8 105 20 84/57 (66) 94 04/06/17 20:42 Nasal Cannula 4.00 04/06/17 20:40 94 Nasal Cannula 4.00 04/06/17 20:09 97.8 104 18 87/58 (68) 95 04/06/17 20:05 102 04/06/17 16:00 97.6 100 18 90/60 (70) 95 04/06/17 16:00 109 04/06/17 12:00 98.4 109 18 88/54 (65) 94 04/06/17 12:00 110 Physical Exam GENERAL: Elderly gentleman lying in bed in NAD. when bed raised his BP did drop 10 points systolic and he felt dizzy HEENT: NCAT. MM improved/less dry. Lips no longer chapped. RESPIRATORY: CTAB. No increased work of breathing. CARDIOVASCULAR: RRR, no m/r/g. ABDOMEN: Soft, nondistended, nontender with +BS. No masses appreciated. MUSCULOSKELETAL: No edema appreciated. No calf tenderness to palpation today. 2 + DP and PT pulses bilaterally. SCDs in place on bilateral LEs. LLE: Femoropopliteal bypass incision sites, CDI. Moving toes and legs b/l. SKIN: Essentially clear with no significant rash or lesions. Adequate skin turgor. NEURO/PSYCH: Clearly enunciated speech today--louder than all previous days. AOx3. CN 2-12 grossly intact. Sensation intact. Patient able to move all 4 extremities spontaneously. Laboratory Laboratory Tests Test 04/06/17 11:50 04/07/17 05:16 White Blood Count 8.8 8.3 Red Blood Count 3.79 3.68 Hemoglobin 11.1 10.7 Hematocrit 33.2 32.0 Mean Corpuscular Volume 87.5 86.9 Mean Corpuscular Hemoglobin 29.2 29.1 Mean Corpuscular Hemoglobin Concent 33.3 33.5 Red Cell Distribution Width 16.4 16.5 Platelet Count 87 104 Mean Platelet Volume 8.5 7.9 Neutrophils (%) (Auto) 91.4 89.2 Lymphocytes (%) (Auto) 3.1 4.2 Monocytes (%) (Auto) 4.6 4.8 Eosinophils (%) (Auto) 0.8 1.4 Basophils (%) (Auto) 0.1 0.4 Neutrophils # (Auto) 8.0 7.4 Lymphocytes # (Auto) 0.3 0.4 Monocytes # (Auto) 0.4 0.4 Eosinophils # (Auto) 0.1 0.1 Basophils # (Auto) 0.0 0.0 CBC Comment AUTO DIFF DIFF FINAL Differential Comment AUTO DIFF CONFIRMED Lamar Cells 1+ Blood Smear Pathologist Review Haptoglobin 198 Prothrombin Time 25.7 Prothromb Time International Ratio 2.5 Iron Level 16 Total Iron Binding Capacity 200 Percent Iron Saturation 8.0 Ferritin 318 Lactate Dehydrogenase 349 Vitamin B12 Level 1434 Folate 16.1 Result Diagram: 04/07/17 0516 04/06/17 0736 Caprini VTE Risk Assessment Caprin VTE Risk Assessment: Mod/High Risk (score >= 2) Caprini Risk Assessment Model Point Value = 1 Point Value = 2 Point Value = 3 Point Value = 5 Age 41-60 Minor surgery BMI > 25 kg/m2 Swollen legs Varicose veins or History of unexplained or recurrent spontaneous Oral contraceptives or hormone replacement Sepsis (< 1 month) Serious lung disease, including pneumonia (< 1 month) Abnormal pulmonary function Acute myocardial infarction Congestive heart failure (< 1 month) History of inflammatory bowel disease Medical patient at bed rest Age 61-74 Arthroscopic surgery Major open surgery (> 45 min) Laparoscopic surgery (> 45 min) Malignancy Confined to bed (> 72 hours) Immobilizing plaster cast Central venous access Age >= 75 History of VTE Family history of VTE Factor V Leiden Prothrombin [id number] Lupus anticoagulant Anticardiolipin antibodies Elevated serum homocysteine Heparin-induced thrombocytopenia Other congenital or acquired thrombophilia Stroke (< 1 month) Elective arthroplasty Hip, pelvis, or leg fracture Acute spinal cord injury (< 1 month) Prophylaxis Regimen Total Risk Factor Score Risk Level Prophylaxis Regimen 0-1 Low Early ambulation 2 Moderate Order ONE of the following: *Sequential Compression Device (SCD) *Heparin 5000 units SQ BID 3-4 Higher Order ONE of the following medications: *Heparin 5000 units SQ TID *Enoxaparin/Lovenox 40 mg SQ daily (WT < 150 kg, CrCl > 30 mL/min) *Enoxaparin/Lovenox 30 mg SQ daily (WT < 150 kg, CrCl > 10-29 mL/min) *Enoxaparin/Lovenox 30 mg SQ BID (WT < 150 kg, CrCl > 30 mL/min) AND/OR *Sequential Compression Device (SCD) 5 or more Highest Order ONE of the following medications: *Heparin 5000 units SQ TID (Preferred with Epidurals) *Enoxaparin/Lovenox 40 mg SQ daily (WT < 150 kg, CrCl > 30 mL/min) *Enoxaparin/Lovenox 30 mg SQ daily (WT < 150 kg, CrCl > 10-29 mL/min) *Enoxaparin/Lovenox 30 mg SQ BID (WT < 150 kg, CrCl > 30 mL/min) AND *Sequential Compression Device (SCD) Assessment and Plan Assessment and Plan 76YO male with CAD, PAD, hypercoagulable with recent DVTs s/p IVC filter, and elevated tumor markers presents back from [facility] with persistent hypotension with fernando 78/42 yesterday. Pt is hemodynamically stable with Hgb 12.7/Hct 38.1 and BPs this morning stable at 105/57 or a bit lower. Pt asymptomatic, afebrile and in NAD. He is eager to go back to rehab and reclaim his life so hope for tomorrow to transfer back Problem List: (1) Hypotension ICD Codes: I95.9 - Hypotension, unspecified Status: Acute Plan: Pt increasingly hypotensive since 04/02 at [facility] with fernando 78/42 yesterday in spite of fluid boluses. Likely 2/2 dehydration from reduced intake and pt depression. Pt started on scheduled IVF yesterday due to reduced/no PO intake in spite of frequent staff encouragement. Today, BP responding at 105/57 ; pt ate 100% of dinner last night. -Monitor vitals frequently -Strict I/Os -Cr 1.10 on 04/03-->1.50 on 04/04-->1.05 04/05-->0.69 on 04/06 he is hydrated now but still has lower BPs. he could have some iatrogenic adrenal insufficiency. he has been on a relatively slow steroid taper (given because of his lung problems more than a month ago when he was first hospitalized). will give 40 mg of prednisone today and see if his BPs respond. If so, he will need a very slow taper in future. will ask Cardiology to see him again. he has an aneurysm but has no pain and would likely be much sicker if that was causing any problems. His BP is supposed to be less than 120 systolic. (2) Dehydration ICD Codes: E86.0 - Dehydration Status: Acute Plan: Pt with decreased PO likely 2/2 reduced PO intake and depression; hypotensive to 78/42 yesterday and was transferred back to [facility] from [facility] ; this morning at 105/57 -NS IVF @ 150ml/hr -Improved UOP overnight -Ate 100% of dinner last night -Cr 0.69 today -Diet to allow to bring in occasional food as well as Ensure/Boost supplements to encourage PO intake will heplock iv and do calorie count plus strict Is and Os to be sure he consumes sufficient quantities of fluids and food (3) UTI (urinary tract infection) ICD Codes: N39.0 - Urinary tract infection, site not specified Status: Acute Plan: Urine cx showing Klebsiella lizarraga-sensitive -Rocephin 1g IV q24h (04/02 -04/07 ) -Matthews output 575ml overnight, yellow with no sediment -[facility]--following recs --Keep matthews in till 04/10, then intermittent caths w/spontaneous voiding trial he will have his flomax and proscar as they are not usually responsible for significant hypotension and they are needed for him to be able to pull his matthews he should be done with a full course of rocephin today (4) Hypercoagulopathy ICD Codes: D68.59 - Other primary thrombophilia Status: Chronic Plan: -Hematology consulted, appreciated recommendations -Pt home dose Effient discontinued following hemorrhagic CVA 03/14 -Discontinued Argatroban ( 03/29/17-04/02/17), bridged to Coumadin (2mg daily) , INR daily until stable (INR 3.7 today) -Discontinue Heparin gtt (03/27/17-03/29/17) due to decreasing platelet counts and positive HIIT antibodies -Heme adjusting coumadin dosing as necessary Tumor markers ordered for suspected metastasis AFP, CA125, PSA wnl CA 19-9 elevated at 171.1 and CEA elevated at 5.3 CT Abd/pelvis w/o contrast demonstrated significant prostatic enlargement which appears to be causing a degree of bladder outlet obstruction. No evidence of inflammatory process within the abdomen or pelvis, no evidence of mass or adenopathy. -Hypercoagulable workup abnormal but not -Protein C, AT III high, however not clinically significant. -Antiphospholipid IgM antibody negative -Factor V Leiden mutation negative -Heparin Induced Platelet Antibody positive concerning for HIT, serotonin assay negative (5) Saddle embolism of pulmonary artery ICD Codes: I26.92 - Saddle embolus of pulmonary artery without acute cor pulmonale Status: Acute Plan: -CTA on 03/23 remarkable for saddle embolus with clot seen in both the right and left central pulmonary arteries. -Echo 2D doppler ordered for concerns of heart strain, results unremarkable for R heart strain Hematology consult and plan as above (6) CVA (cerebral vascular accident) ICD Codes: I63.9 - Cerebral infarction, unspecified Status: Acute Plan: -Neurology consulted previously, now signed off -Recommend systemic full intensity anticoagulation in the setting of hypercoagulable state. Hematology consulted as above -Continue Aspirin, Effient discontinued, as above bridged to warfarin with Hematology and pharmacy dosing -Neurologically stable -Neurosurgery consulted previously, now signed off -CT head reviewed, nonoperative mgt -Palliative care consulted on previous hospitalization; will consider reconsulting if pt status declines Previous Workup: Patient with slurred speech on 03/[address] and MRI showing R cerebellar edema and infarction consistent with CVA. -Head CT: 3.5 x 3.6 cm low attenuation area in the right cerebellar hemisphere area most characteristic of edema which could be secondary to underlying mass or infarction. Second smaller focal peripheral area of decreased attenuation involving the right parietal occipital watershed region concerning for edema as well. Further evaluation with MRI recommended. -Brain MRI: Proximally 5cm infarct of the right cerebellar hemisphere with small punctate infarcts in the right occipital lobe and left parietal lobe. Remote lacunar infarcts of the right basal ganglia and cerebellum. -Head MRA: Patient within normal limits for age -Neck MRA: No significant stenosis in the carotid arteries. Left vertebral artery is dominant. -Neck CTA: Minimal calcific plaquing nonstenotic bilateral carotid bulbs and initial segment of the right internal carotid. -Repeat Brain MRI: no significant change in the appearance of large acute infarction involving the right cerebellum as well as the much smaller acute infarctions involving the right occipital lobe and left high parietal cortex. -Repeat head CT: Stable right cerebellar infarction, fourth ventricle open, no signs of hydrocephalus (7) Paroxysmal atrial fibrillation ICD Codes: I48.0 - Paroxysmal atrial fibrillation Status: Acute Plan: -Cardiology consulted on previous hospitalization -SEAN: atrial septal aneurysm and PFO. PFO closure not recommended. Otherwise , unremarkable. -Paroxysmal atrial fibrillation noted 2/5 -Continue metoprolol 50mg PO q12hr as tolerated and Amiodarone 200mg PO daily. (8) DVT (deep venous thrombosis) ICD Codes: I82.409 - Acute embolism and thrombosis of unspecified deep veins of unspecified lower extremity Status: Chronic Plan: -LE US 03/20/17: Positive venous Doppler bilaterally above the knee on the R and below the knee on the L. Lower extremity ultrasound 04/03 due to pt expressing pain in LLE calf: Both superficial and deep venous thrombosis of the left leg. Per discussion with Dr Whaley, no change in anticoagulation--pt high risk for another hemorrhagic stroke if argabatran restarted; continue coumadin dosing. 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 Status: Acute Plan: -Continue Duloxetine 60mg PO daily (10) Aorta aneurysm ICD Codes: I71.9 - Aortic aneurysm of unspecified site, without rupture Status: Chronic Plan: -4.3 cm ascending thoracic aortic aneurysm on CTA -Vascular surgery consulted on previous hospitalization -Thoracic aneurysm aneurysm will be managed medically and with close follow- up for imaging -Goal systolic blood pressure of less than 120 (11) Superficial femoral artery occlusion ICD Codes: I70.209 - Unspecified atherosclerosis of [place] arteries of extremities, unspecified extremity Status: Resolved Plan: -Vascular surgery consulted on previous hospitalization -TPA unsuccessful 03/08 -Patient status post left femoropopliteal bypass femoral endarterectomy popliteal endarterectomy and patch on 03/09 -Patient w/ hx of PAD (12) HTN (hypertension) ICD Codes: I10 - Essential (primary) hypertension Status: Chronic Plan: -Currently hypotensive -Holding Metoprolol tartrate 50 mg PO BID and Lisinopril 10mg which were previously prescribed -Goal systolic blood pressure of less than 120 due to thoracic aortic aneurysm -he probably has rebound tacycardia from stopping his beta anibal so assuming his BPs go up would restart some beta anibal (13) CAD (coronary artery disease) ICD Codes: I25.10 - Atherosclerotic heart disease of [place] coronary artery without angina pectoris Status: Chronic Plan: -Patient with known CAD, status post PR and coronary stents placed in 2003 -Continue home atorvastatin 40 mg at night, ASA 81 mg daily (14) BPH (benign prostatic hyperplasia) ICD Codes: N40.0 - Benign prostatic hyperplasia without lower urinary tract symptoms Status: Chronic Plan: Urology consulted secondary to voiding dysfunction during stay in [facility] Urology recommendations 04/03: Maintain Matthews catheter to gravity drainage for at least one week (until 04/10). Then discontinue and resume clean intermittent catheterization 4 times daily. Continue Flomax. Patient will require outpatient workup to include cystoscopy and urodynamics sometime after discharge from rehabilitation facility. -Flomax discontinued 04/06 due to persistent hypotension but will restart (15) Dysarthria ICD Codes: R47.1 - Dysarthria and anarthria Status: Acute Plan: Stable--mild slurred speech no change from baseline in rehab -Speech therapy consult for eval and therapy as needed -Low dysphagia or aspiration risk at present (16) HIT (heparin-induced thrombocytopenia) ICD Codes: D75.82 - Heparin induced thrombocytopenia (HIT) Status: Acute Plan: HIIT antibody positive last hospitalization -Refrain from using Heparin if possible (17) PAD (peripheral artery disease) ICD Codes: I73.9 - Peripheral vascular disease, unspecified Status: Chronic Plan: As above -Pt with recent fempop bypass, failed tPA therapy -Vascular surgery consulted during last hospitalization (Dr Hernandez) (18) FEN/GI/PPx Status: Acute Plan: Fluids: heplock and do strict Is and Os to be sure he gets enough fluid Electrolytes: wnl, will monitor daily BMP and replete as necessary Nutrition: Heart healthy diet and will allow his to bring in external food items and add Boost/Ensure supplements with meals to encourage PO intake GI: Protonix 40mg PO daily PPx: Heme and pharmacy dosing Coumadin due to hypercoagulability; also on ASA 81mg; SCDs bilaterally for mechanical AC as well PT eval and treat OT eval and treat Problem Qualifiers (1) Hypotension: Qualified Codes: I95.1 - Orthostatic hypotension (2) UTI (urinary tract infection): Qualified Codes: N30.01 - Acute cystitis with hematuria (3) Saddle embolism of pulmonary artery: Qualified Codes: I26.92 - Saddle embolus of pulmonary artery without acute cor pulmonale (4) CVA (cerebral vascular accident): Qualified Codes: I63.341 - Cerebral infarction due to thrombosis of right cerebellar artery (5) DVT (deep venous thrombosis): (6) Aorta aneurysm: Qualified Codes: I71.9 - Aortic aneurysm of unspecified site, without rupture (7) HTN (hypertension): Qualified Codes: I10 - Essential (primary) hypertension (8) CAD (coronary artery disease): Qualified Codes: I25.10 - Atherosclerotic heart disease of [place] coronary artery without angina pectoris (9) BPH (benign prostatic hyperplasia): Qualified Codes: N40.1 - Benign prostatic hyperplasia with lower urinary tract symptoms; N13.8 - Other obstructive and reflux uropathy Arianne Tang MD Apr 07, 2017 10:07
[2017-04-07] MEDS ORDERED: predniSONE 20 MG TAB PO ONE (10:30)
--- NOTE | 2017-04-07 13:49 | PD.ONC.PN ---
Subjective Subjective Remarks Afebrile overnight. Patient remains hypotensive. INR therapeutic today. no obvious bleeding. denies pain at present. Objective Data Date Time Temp Pulse Resp B/P (MAP) Pulse Ox O2 Delivery O2 Flow Rate FiO2 04/07/17 09:00 111 80/57 (65) 04/07/17 08:45 107 90/62 (71) 04/07/17 08:31 97 Nasal Cannula 4.00 04/07/17 08:00 97.4 98 12 87/57 (67) 98 04/07/17 04:00 101 04/07/17 04:00 Nasal Cannula 4.00 04/07/17 03:14 97.9 106 18 88/60 (69) 96 04/07/17 00:00 Nasal Cannula 4.00 04/06/17 23:50 105 04/06/17 23:23 97.8 105 20 84/57 (66) 94 04/06/17 20:42 Nasal Cannula 4.00 04/06/17 20:40 94 Nasal Cannula 4.00 04/06/17 20:09 97.8 104 18 87/58 (68) 95 04/06/17 20:05 102 04/06/17 16:00 97.6 100 18 90/60 (70) 95 04/06/17 16:00 109 04/07/17 04/07/17 04/07/17 07:00 15:00 23:00 Intake Total 2200 ml Output Total 50 ml Balance 2150 ml Result Diagram: 04/07/17 0516 04/06/17 0736 Laboratory Results Laboratory Tests Test 04/07/17 05:16 White Blood Count 8.3 TH/MM3 Red Blood Count 3.68 MIL/MM3 Hemoglobin 10.7 GM/DL Hematocrit 32.0 % Mean Corpuscular Volume 86.9 FL Mean Corpuscular Hemoglobin 29.1 PG Mean Corpuscular Hemoglobin Concent 33.5 % Red Cell Distribution Width 16.5 % Platelet Count 104 TH/MM3 Mean Platelet Volume 7.9 FL Neutrophils (%) (Auto) 89.2 % Lymphocytes (%) (Auto) 4.2 % Monocytes (%) (Auto) 4.8 % Eosinophils (%) (Auto) 1.4 % Basophils (%) (Auto) 0.4 % Neutrophils # (Auto) 7.4 TH/MM3 Lymphocytes # (Auto) 0.4 TH/MM3 Monocytes # (Auto) 0.4 TH/MM3 Eosinophils # (Auto) 0.1 TH/MM3 Basophils # (Auto) 0.0 TH/MM3 CBC Comment DIFF FINAL Differential Comment Blood Smear Pathologist Review Haptoglobin 198 MG/DL Prothrombin Time 25.7 SEC Prothromb Time International Ratio 2.5 RATIO Iron Level 16 MCG/DL Total Iron Binding Capacity 200 MCG/DL Percent Iron Saturation 8.0 % Ferritin 318 NG/ML Lactate Dehydrogenase 349 U/L Vitamin B12 Level 1434 PG/ML Folate 16.1 NG/ML Administered Medications Medications (Trade) Dose Ordered Sig/Lizbeth Route PRN Reason Start Time Stop Time Status Last Admin Dose Admin Sodium Chloride (NS Flush) 2 ml BID IV FLUSH 04/05/17 21:00 04/07/17 09:50 Senna/Docusate Sodium (Arleth-Colace) 1 tab BID PO 04/05/17 21:00 04/07/17 09:50 Albuterol/ Ipratropium (Duoneb Neb) 1 ampule QID NEB NEB 04/05/17 20:00 04/07/17 12:12 Amiodarone HCl (Cordarone) 200 mg DAILY PO 04/06/17 09:00 04/07/17 09:50 Aspirin (Ecotrin Ec) 162 mg DAILY PO 04/06/17 09:00 04/07/17 09:50 Atorvastatin Calcium (Lipitor) 40 mg HS PO 04/05/17 21:00 04/06/17 20:22 Duloxetine HCl (Cymbalta Dr) 60 mg DAILY PO 04/06/17 09:00 04/07/17 09:49 Fluticasone/ Vilanterol (Breo Ellipta 200-25 Inh) 1 puff DAILY INH 04/06/17 09:00 04/07/17 09:48 Montelukast Sodium (Singulair) 10 mg HS PO 04/05/17 21:00 04/06/17 20:22 Multivitamins (Theragran) 1 tab DAILY PO 04/06/17 09:00 04/07/17 09:49 Oxycodone/ Acetaminophen (Percocet 5-325 Mg) 1 tab Q4H PRN PO pain1-5 04/05/17 18:30 04/06/17 20:22 Pantoprazole Sodium (Protonix) 40 mg DAILY PO 04/06/17 09:00 04/07/17 09:49 Zinc Oxide (Desitin 40% Oint) 1 applic BID TOPICAL 04/05/17 21:00 04/07/17 09:50 Tamsulosin HCl (Flomax) 0.4 mg DAILY PO 04/06/17 10:45 04/07/17 09:50 Objective Remarks GENERAL: Elderly male, lying in bed in nad. SKIN: Warm and dry. HEAD: Normocephalic. EYES: No injection or drainage. NECK: Supple, trachea midline. CARDIOVASCULAR: Regular rate and rhythm RESPIRATORY: anterior laguna clear. GASTROINTESTINAL: Abdomen soft, non-tender, nondistended. EXTREMITIES: No cyanosis. ble with edema, L>R NEUROLOGICAL: awake and alert. + expressive aphasia. Assessment/Plan Assessment 1. VTE: arterial thrombosis s/p fem-pop bypass, bilateral lower extremity VTE , saddle PE. continue on coumadin. monitor INR closely 2. History of CVA with hemorrhagic component: monitor CBC, platelets and neurologic status. 3. Thrombocytopenia: s/p full work up which was unrevealing. 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 platelets improving. monitor closely. Attending Statement The exam, history, and the medical decision-making described in the above note were completed with the assistance of the mid-level provider. I reviewed and agree with the findings presented. I attest that I had a [id number] encounter with the patient on the same day, and personally performed and documented my assessment and findings in the medical record. 76 yoM with extensive arterial and venous thrombosis and CVA with hemorrhagic component now currently on warfarin. Continue to follow INR closely and monitor CBC. Thrombocytopenia improving. 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 No evidence of DIC, TMA. Consumption. Continue to follow. Jennifer Otto Apr 07, 2017 13:49 Cheryle Coleman MD Apr 08, 2017 07:06
[2017-04-07] MEDS ORDERED: METOPROLOL TARTRATE 25 MG TAB PO PRN (15:15)
--- NOTE | 2017-04-07 17:40 | MB ---
cc: KULDEEP CARMEN M.D. DATE OF CONSULTATION: 04/07/2017. REASON FOR CONSULTATION: Hypotension, history of atrial fibrillation. HISTORY OF PRESENT ILLNESS: The patient is a 76-year-old white male with a history of numerous medical problems including coronary disease, COPD, peripheral vascular disease, CVAs, recent pulmonary embolism and deep venous thromboses who was brought back to the hospital from [facility] because of persistent hypotension. The patient was given an additional intravenous fluids today with resolution of the hypotension. The patient denies dizziness, syncope, near-syncope, palpitations, chest pain, abdominal pain, headache, nausea, paroxysmal nocturnal dyspnea, pedal edema. At times, he has felt mildly dyspneic at rest although he states this has been considerably improving. The patient also notes fairly poor oral intake in the last couple weeks. PAST MEDICAL HISTORY: 1. COPD. 2. Coronary artery disease status post percutaneous coronary interventions in [place] in 2007. 3. Hypertension 4. Peripheral vascular disease status post left femoropopliteal bypass 03/09/2017. 5. Chronic erythrocytosis necessitating periodic phlebotomies 6. Gastroesophageal reflux disease. 7. CVAs, most recently last month which was a fairly large right cerebellar CVA in addition to small right occipital and left parietal strokes. 8. Patent foramen ovale and atrial septal aneurysm demonstrated on transesophageal echocardiography 03/16/2017. 9. 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 10. 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 11. Sleep apnea 12. Saddle pulmonary embolism 03/23/2017. 13. Paroxysmal atrial fibrillation demonstrated on monitoring last admission. CURRENT CARDIAC MEDICATIONS: 1. Amiodarone 200 milligrams p.o. daily. 2. Aspirin 162 milligrams p.o. daily. 3. Atorvastatin 40 milligrams p.o. at bedtime. 4. Warfarin 1 milligram alternating with 2 milligrams at bedtime. ALLERGIES: NO KNOWN DRUG ALLERGIES. HE HAS A NUMBER OF FOOD ALLERGIES. FAMILY HISTORY: Noncontributory. SOCIAL HISTORY: The patient is a nonsmoker. There is no history of alcohol abuse. REVIEW OF SYSTEMS: Review of systems as in the history of present illness otherwise negative or noncontributory. He also denies headache, visual changes, abdominal pain, diarrhea, melena, bright red blood per rectum, fevers. PHYSICAL EXAMINATION: VITAL SIGNS: On physical examination, his blood pressure is 128/60 with a pulse of 110, respirations 13. GENERAL: In general, he is a well-developed, well-nourished white male in no acute distress. HEAD, EYES, EARS, NOSE, THROAT: On HEENT examination, jugular venous pressure is normal. Carotid pulses are 2+ bilaterally and without bruits. CHEST: Examination of the chest reveals clear lung laguna anteriorly. CARDIAC: On cardiac examination, he has a tachycardic regular rhythm without S3, S4 or murmur. ABDOMEN: On abdominal examination, he has a soft, nontender abdomen. Bowel sounds are present. There is no definite hepatosplenomegaly. EXTREMITIES: No cyanosis, clubbing or edema. LABORATORY DATA: WBCs 8.3, hemoglobin 10.7, platelet count 104,000. Potassium 4.7, BUN 38, creatinine 0.69. AST 72, ALT 160. INR 2.5. EKGS: EKG is pending. IMPRESSION: Hypotension in this 76-year-old white male with history of numerous medical problems including coronary artery disease, peripheral vascular disease, CVAs, recent pulmonary emboli and bilateral deep venous thromboses, paroxysmal atrial fibrillation. The patient appears to have responded to intravenous fluids as well as the administration of additional Prednisone. Overall I doubt a cardiac etiology for his hypotension. He is also likely dehydrated. His oral intake has been poor. There is no evidence for worsening pulmonary embolism or overwhelming infection. Left ventricular function by transesophageal and transthoracic echoes last admission was normal. RECOMMENDATIONS: 1. Continue anticoagulation therapy for his history of paroxysmal atrial fibrillation and pulmonary embolism. 2. Continue oral amiodarone, although his liver function tests will have to be followed up as an outpatient. 3. Continue daily aspirin. 4. Will follow up as needed. MD MARZENA Saucedo/YISSEL /4:49 PM /5:28 PM GALILEA
[2017-04-07] MEDS ORDERED: WARFARIN SOD 1 MG TAB PO ONE (18:00)
[2017-04-07] MEDS: oxyCODONE/ACETAMINOPHEN 10 MG/325 MG TAB PO PRN ×2 (19:15→23:17)
[2017-04-07] MEDS: MONTELUKAST SODIUM 10 MG TAB PO SCH (21:00)
[2017-04-07] MEDS: ATORVASTATIN 40 MG TAB PO SCH (21:00)
--- NOTE | 2017-04-07 23:13 | EKG ---
Date Performed: 04/07/2017 Time Performed: 16:20:50 PTAGE: 76 years EKG: SINUS TACHYCARDIA INFERIOR MYOCARDIAL INFARCTION , PROBABLY OLD ABNORMAL ECG PREVIOUS TRACING : 03/24/2017 06.48 Compared to previous tracing, heart rate has increased. DOCTOR: Jair De Jesus Interpretating Date/Time 04/07/2017 23:10:56
[2017-04-08] VITALS: PULSE 99
[2017-04-08] MEDS: SODIUM CHLOR 0.9% 1000 ML INJ 1,000 ML IV SCH ×3 (01:00→09:00)
[2017-04-08 04:00] VITALS: PULSE 96
[2017-04-08 04:37] VITALS: BP 137/74; PULSE 96; RESP 18; TEMP 97.1; O2SAT 94
[2017-04-08] MEDS: RESP: ALBUTEROL 2.5 MG/IPRATROPIUM 0.5 MG NEB (SCH) NEB ×2 (07:42→12:16)
[2017-04-08 07:53] VITALS: O2SAT 94
[2017-04-08 08:00] VITALS: BP 129/79; PULSE 93; PULSE 95; RESP 18; TEMP 97.3; O2SAT 96
--- NOTE | 2017-04-08 08:49 | PD.ONC.PN ---
Subjective Subjective Remarks Afebrile overnight. Patient resting in room. tired of being in hospital. no overnight events. no complaints. Objective Data Date Time Temp Pulse Resp B/P (MAP) Pulse Ox O2 Delivery O2 Flow Rate FiO2 04/08/17 07:53 94 Nasal Cannula 4.00 04/08/17 04:37 97.1 96 18 137/74 (95) 94 04/08/17 04:00 96 04/08/17 04:00 Nasal Cannula 4.00 04/08/17 00:00 Nasal Cannula 4.00 04/08/17 00:00 99 04/07/17 23:50 97.9 101 18 116/67 (83) 91 04/07/17 20:21 92 Nasal Cannula 4.00 04/07/17 20:00 104 04/07/17 20:00 Nasal Cannula 4.00 04/07/17 19:50 97.7 107 18 110/62 (78) 94 04/07/17 16:00 108 04/07/17 16:00 95.2 107 14 120/65 (83) 91 04/07/17 12:00 94.1 110 13 128/61 (83) 97 04/07/17 09:00 111 80/57 (65) 04/08/17 04/08/17 04/08/17 07:00 15:00 23:00 Intake Total 2113 ml Output Total 450 ml Balance 1663 ml Result Diagram: 04/07/17 0516 04/06/17 0736 Administered Medications Medications (Trade) Dose Ordered Sig/Lizbeth Route PRN Reason Start Time Stop Time Status Last Admin Dose Admin Sodium Chloride (NS Flush) 2 ml BID IV FLUSH 04/05/17 21:00 04/07/17 09:50 Senna/Docusate Sodium (Arleth-Colace) 1 tab BID PO 04/05/17 21:00 04/07/17 21:00 Albuterol/ Ipratropium (Duoneb Neb) 1 ampule QID NEB NEB 04/05/17 20:00 04/08/17 07:42 Amiodarone HCl (Cordarone) 200 mg DAILY PO 04/06/17 09:00 04/07/17 09:50 Aspirin (Ecotrin Ec) 162 mg DAILY PO 04/06/17 09:00 04/07/17 09:50 Atorvastatin Calcium (Lipitor) 40 mg HS PO 04/05/17 21:00 04/07/17 21:00 Duloxetine HCl (Cymbalta Dr) 60 mg DAILY PO 04/06/17 09:00 04/07/17 09:49 Fluticasone/ Vilanterol (Breo Ellipta 200-25 Inh) 1 puff DAILY INH 04/06/17 09:00 04/07/17 09:48 Montelukast Sodium (Singulair) 10 mg HS PO 04/05/17 21:00 04/07/17 21:00 Multivitamins (Theragran) 1 tab DAILY PO 04/06/17 09:00 04/07/17 09:49 Oxycodone/ Acetaminophen (Percocet 10-325 Mg) 1 tab Q4H PRN PO pain 6-10 04/05/17 18:30 04/07/17 23:17 Oxycodone/ Acetaminophen (Percocet 5-325 Mg) 1 tab Q4H PRN PO pain1-5 04/05/17 18:30 04/06/17 20:22 Pantoprazole Sodium (Protonix) 40 mg DAILY PO 04/06/17 09:00 04/07/17 09:49 Zinc Oxide (Desitin 40% Oint) 1 applic BID TOPICAL 04/05/17 21:00 04/07/17 21:00 Tamsulosin HCl (Flomax) 0.4 mg DAILY PO 04/06/17 10:45 04/07/17 09:50 Sodium Chloride 1,000 ml @ 125 mls/hr Q8H IV 04/07/17 17:00 04/08/17 02:13 Objective Remarks GENERAL: Elderly male, supine in bed resting. SKIN: Warm and dry. HEAD: Normocephalic. EYES: No injection or drainage. NECK: Supple, trachea midline. CARDIOVASCULAR: +S1/S2 RESPIRATORY: anterior laguna clear. GASTROINTESTINAL: Abdomen soft, non-tender, nondistended. EXTREMITIES: No cyanosis. legs with edema, left is larger then right. NEUROLOGICAL: awake. persistent expressive aphasia. Assessment/Plan Assessment 1. VTE: arterial thrombosis s/p fem-pop bypass, bilateral lower extremity VTE , saddle PE. await INR today. 2. History of CVA with hemorrhagic component: monitor CBC. 3. Thrombocytopenia: s/p full work up which was unrevealing. 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 monitor CBC Attending Statement s/p CVA on AC for afib and afib on coumadin--Therapeutic Jennifer Otto Apr 08, 2017 08:49 Ulysses Ennis MD Apr 08, 2017 12:11
[2017-04-08] MEDS: SODIUM CHLORIDE 0.9% FLUSH 10 ML FLUSH IV FLUSH SCH (09:00)
[2017-04-08] MEDS ORDERED: predniSONE 20 MG TAB PO SCH (09:00)
[2017-04-08] MEDS ORDERED: predniSONE 5 MG TAB PO SCH (09:00)
[2017-04-08] MEDS ORDERED: PRED20 PO (10:38)
[2017-04-08] MEDS ORDERED: METO25TA3 PO (10:38)
--- NOTE | 2017-04-08 10:38 | HHI.DCPOC ---
Discharge Care Plan Diagnosis: (1) Cerebral infarction due to unspecified occlusion or stenosis of right cerebellar artery (2) Hypercoagulopathy (3) Hypotension Goals to Promote Your Health * To prevent worsening of your condition and complications * To maintain your health at the optimal level Directions to Meet Your Goals Take your medications as prescribed Follow your dietary instruction Follow activity as directed Keep your appointments as scheduled Take your immunizations and boosters as scheduled If your symptoms worsen call your PCP, if no PCP go to Urgent Care Center or Emergency Room Smoking is Dangerous to Your Health. Avoid second hand smoke Call the 24-hour hour crisis hotline for domestic abuse at Tez Gilliam MD, R3 Apr 08, 2017 10:38
[2017-04-08 11:46] LABS: INTERNATIONAL NORMALIZED RATIO 2.2 RATIO; PROTHROMBIN TIME - PATIENT 22.1 SEC (9.8-11.6)
[2017-04-08] MEDS: DULoxetine HCl DR 60 MG CAP PO SCH (11:50)
[2017-04-08] MEDS: MULTIVITAMIN TAB PO SCH (11:50)
[2017-04-08] MEDS: AMIODARONE 200 MG TAB PO SCH (11:50)
[2017-04-08] MEDS: DOCUSATE SODIUM 50 MG/SENNA 8.6 MG TAB PO SCH (11:51)
[2017-04-08] MEDS: PANTOPRAZOLE SOD 40 MG DELAYED RELEASE TAB PO SCH (11:51)
[2017-04-08] MEDS: ASPIRIN EC 81 MG TABEC PO SCH (11:51)
[2017-04-08 11:52] LABS: AUTOMATED NEUTROPHIL # 9.9 TH/MM3 (1.8-7.7); BASOPHIL % 0.1 % (0.0-2.0); EOSINOPHIL # 0.1 TH/MM3 (0-0.4); EOSINOPHIL % 0.7 % (0.0-4.0); HEMATOCRIT 35.4 % (39.0-51.0); HEMOGLOBIN 11.7 GM/DL (13.0-17.0); LYMPH % 3.7 % (9.0-44.0); LYMPHOCYTE # 0.4 TH/MM3 (1.0-4.8); MEAN CELL VOLUME 86.6 FL (80.0-100.0); MEAN CORPUSCULAR HEMOGLOBIN 28.5 PG (27.0-34.0); MEAN CORPUSCULAR HGB CONC 32.9 % (32.0-36.0); MEAN PLATELET VOLUME 7.7 FL (7.0-11.0); MONO % 4.1 % (0.0-8.0); MONOCYTE # 0.4 TH/MM3 (0-0.9); NEUT % 91.4 % (16.0-70.0); PLATELET COUNT 167 TH/MM3 (150-450); RED BLOOD COUNT 4.09 MIL/MM3 (4.50-5.90); RED CELL DISTRIBUTION WIDTH 16.5 % (11.6-17.2); WHITE BLOOD COUNT 10.9 TH/MM3 (4.0-11.0)
[2017-04-08] MEDS: FLUTICASONE 200 MCG/VILANTEROL 25 MCG INHALER INH SCH (11:52)
[2017-04-08] MEDS: ZINC OXIDE 40% OINT 60 GM TUBE TOPICAL SCH (11:53)
[2017-04-08] MEDS: TAMSULOSIN HCL 0.4 MG CAP PO SCH (11:54)
[2017-04-08 12:00] VITALS: BP 113/83; PULSE 104; PULSE 112; RESP 18; TEMP 97.6; O2SAT 93
[2017-04-08 12:04] LABS: BICARBONATE 22.7 MEQ/L (21.0-32.0); CALCIUM 8.1 MG/DL (8.5-10.1); CREATININE 0.5 MG/DL (0.60-1.30)
--- NOTE | 2017-04-08 13:03 | HHI.FPPN ---
Subjective Remarks Spoke to Mr Gallagher and his today. His BPs responded perfectly to one dose of po 40 mg prednisone. he is improved and feels better already. He is taking better po fluids and food. He will be transferring to [facility] today. I discussed with Mrs Gallagher that he has adrenal insufficiency. He was on 10 mg or more when he was in the hospital but was being weaned and only had 7.5 mg at [facility]. It was not enough and he got worse. He quit eating and drinking, he became more and more hypotensive, he was even hyperkalemic one day as well as hyponatremic, etc. which all fits with adrenal insufficiency. I explained to his that Endocrinology normally doesn't come to the hospital and that I don 't know if he has permanent insufficiency vs needing a very slow taper. I recommended having him seen as an outpt but explained he can have some workup here. He is on 20 mg daily of prednisone now and hydrocortisone can be considered in divided doses though prednisone is working now. Objective Vitals Vital Signs Date Time Temp Pulse Resp B/P (MAP) Pulse Ox O2 Delivery O2 Flow Rate FiO2 04/08/17 12:00 112 04/08/17 08:00 95 04/08/17 08:00 97.3 93 18 129/79 (96) 96 04/08/17 07:53 94 Nasal Cannula 4.00 04/08/17 04:37 97.1 96 18 137/74 (95) 94 04/08/17 04:00 96 04/08/17 04:00 Nasal Cannula 4.00 04/08/17 00:00 Nasal Cannula 4.00 04/08/17 00:00 99 04/07/17 23:50 97.9 101 18 116/67 (83) 91 04/07/17 20:21 92 Nasal Cannula 4.00 04/07/17 20:00 104 04/07/17 20:00 Nasal Cannula 4.00 04/07/17 19:50 97.7 107 18 110/62 (78) 94 04/07/17 16:00 108 04/07/17 16:00 95.2 107 14 120/65 (83) 91 I/O 04/07/17 04/07/17 04/07/17 04/08/17 04/08/17 04/08/17 07:00 15:00 23:00 07:00 15:00 23:00 Intake Total 2200 ml 590 ml 2113 ml Output Total 50 ml 1100 ml 450 ml Balance 2150 ml -510 ml 1663 ml Intake Oral 200 ml 590 ml 0 ml IV Total 2000 ml 2113 ml Output Urine Total 50 ml 1100 ml 450 ml # Bowel Movements 0 0 Result Diagram: 04/08/17 1108 04/08/17 1108 Objective Remarks GENERAL: Elderly gentleman lying in bed in NAD. feels better today and is drinking and eating more. HEENT: NCAT. MM improved/less dry. RESPIRATORY: CTAB. No increased work of breathing. CARDIOVASCULAR: RRR, no m/r/g. ABDOMEN: Soft, nondistended, nontender with +BS. No masses appreciated. MUSCULOSKELETAL: No edema appreciated. No calf tenderness to palpation today. 2 + DP and PT pulses bilaterally. LLE: Femoropopliteal bypass incision sites, CDI. Moving toes and legs b/l. SKIN: Essentially clear with no significant rash or lesions. Adequate skin turgor. NEURO/PSYCH: Clearly enunciated speech today--louder than all previous days. AOx3. CN 2-12 grossly intact. Sensation intact. Patient able to move all 4 extremities spontaneously. A/P Assessment and Plan 76YO male with CAD, PAD, hypercoagulable with recent DVTs s/p IVC filter, and elevated tumor markers [facility] with [facility] hypotension with fernando 78/42 yesterday. Pt is hemodynamically stable with Hgb 12.7/Hct 38.1 and BPs this morning stable at 105/57 or a bit lower. Pt asymptomatic, afebrile and in NAD. He is eager to go back to rehab and reclaim his life so transferred back today Problem List: (1) Hypotension ICD Codes: I95.9 - Hypotension, unspecified Status: Acute Plan: Pt increasingly hypotensive since 04/02 at [facility] with fernando 78/42 yesterday in spite of fluid boluses. Likely 2/2 dehydration from reduced intake and pt depression. Pt started on scheduled IVF yesterday due to reduced/no PO intake in spite of frequent staff encouragement. Today, BP responding at 105/57 ; pt ate 100% of dinner last night. -Monitor vitals frequently -Strict I/Os -Cr 1.10 on 04/03-->1.50 on 04/04-->1.05 04/05-->0.69 on 04/06 he is hydrated now but still has lower BPs. he does have some adrenal insufficiency. he has been on a relatively slow steroid taper (given because of his lung problems more than a month ago when he was first hospitalized). had 40 mg of prednisone and his BPs responded instantly and beautifully. He will need a very slow taper in future vs consideration of hydrocortisone at maintenance dose. Normally about 25 mg of hydrocortisone in divided dose at breakfast 15 and 10 at lunch. he had 20 mg of prednisone this am so will hold off now. Consider checking out his adrenals more with a scan. an am cortisol will be useless on most meds. would recommend seeing Endocrine as an outpt His BP is supposed to be less than 120 systolic with his aneurysm so will start on low dose beta anibal for now to see how he does. (2) Dehydration ICD Codes: E86.0 - Dehydration Status: Acute Plan: Pt with decreased PO because of adrenal insufficiency -off iv yesterday and did well, now back on higher dose steroids -Improved UOP overnight -eating better -Cr 0.69 today -Diet to allow to bring in occasional food as well as Ensure/Boost supplements to encourage PO intake had heplocked iv and calorie count plus strict Is and Os. He is consuming better quantities of fluids and food (3) Hypercoagulopathy ICD Codes: D68.59 - Other primary thrombophilia Status: Chronic Plan: -Hematology consulted, appreciated recommendations -Pt home dose Effient discontinued following hemorrhagic CVA 03/14 -Discontinued Argatroban ( 03/29/17-04/02/17), bridged to Coumadin (2mg daily) , INR daily until stable (INR 3.7 today) -Discontinue Heparin gtt (03/27/17-03/29/17) due to decreasing platelet counts and positive HIIT antibodies -Heme adjusting coumadin dosing as necessary Tumor markers ordered for suspected metastasis AFP, CA125, PSA wnl CA 19-9 elevated at 171.1 and CEA elevated at 5.3 CT Abd/pelvis w/o contrast demonstrated significant prostatic enlargement which appears to be causing a degree of bladder outlet obstruction. No evidence of inflammatory process within the abdomen or pelvis, no evidence of mass or adenopathy. -Hypercoagulable workup abnormal but not -Protein C, AT III high, however not clinically significant. -Antiphospholipid IgM antibody negative -Factor V Leiden mutation negative -Heparin Induced Platelet Antibody positive concerning for HIT, serotonin assay negative (4) Paroxysmal atrial fibrillation ICD Codes: I48.0 - Paroxysmal atrial fibrillation Status: Acute Plan: -Cardiology consulted on previous hospitalization -SEAN: atrial septal aneurysm and PFO. PFO closure not recommended. Otherwise , unremarkable. -Paroxysmal atrial fibrillation noted 03/20 -Continue metoprolol 50mg PO q12hr as tolerated and Amiodarone 200mg PO daily. (5) DVT (deep venous thrombosis) ICD Codes: I82.409 - Acute embolism and thrombosis of unspecified deep veins of unspecified lower extremity Status: Chronic Plan: -LE US 03/20/17: Positive venous Doppler bilaterally above the knee on the R and below the knee on the L. Lower extremity ultrasound 04/03 due to pt expressing pain in LLE calf: Both superficial and deep venous thrombosis of the left leg. Per discussion with Dr Whaley, no change in anticoagulation--pt high risk for another hemorrhagic stroke if argabatran restarted; continue coumadin dosing. 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 ICD Codes: I63.9 - Cerebral infarction, unspecified; F06.31 - Mood disorder due to known physiological condition with depressive features Status: Acute Plan: -Continue Duloxetine 60mg PO daily (7) Aorta aneurysm ICD Codes: I71.9 - Aortic aneurysm of unspecified site, without rupture Status: Chronic Plan: -4.3 cm ascending thoracic aortic aneurysm on CTA -Vascular surgery consulted on previous hospitalization -Thoracic aneurysm aneurysm will be managed medically and with close follow- up for imaging -Goal systolic blood pressure of less than 120 (8) Superficial femoral artery occlusion ICD Codes: I70.209 - Unspecified atherosclerosis of [place] arteries of extremities, unspecified extremity Status: Resolved Plan: -Vascular surgery consulted on previous hospitalization -TPA unsuccessful 03/08 -Patient status post left femoropopliteal bypass femoral endarterectomy popliteal endarterectomy and patch on 03/09 -Patient w/ hx of PAD (9) HTN (hypertension) ICD Codes: I10 - Essential (primary) hypertension Status: Chronic Plan: -Currently hypotensive -Holding Metoprolol tartrate 50 mg PO BID and Lisinopril 10mg which were previously prescribed -Goal systolic blood pressure of less than 120 due to thoracic aortic aneurysm -he probably has rebound tacycardia from stopping his beta anibal so assuming his BPs go up would restart some beta anibal (10) CAD (coronary artery disease) ICD Codes: I25.10 - Atherosclerotic heart disease of [place] coronary artery without angina pectoris Status: Chronic Plan: -Patient with known CAD, status post OK and coronary stents placed in 2003 -Continue home atorvastatin 40 mg at night, ASA 81 mg daily (11) BPH (benign prostatic hyperplasia) ICD Codes: N40.0 - Benign prostatic hyperplasia without lower urinary tract symptoms Status: Chronic Plan: Urology consulted secondary to voiding dysfunction during stay in [facility] Urology recommendations 04/03: Maintain Rodriguez catheter to gravity drainage for at least one week (until 04/10). Then discontinue and resume clean intermittent catheterization 4 times daily. Continue Flomax. Patient will require outpatient workup to include cystoscopy and urodynamics sometime after discharge from rehabilitation facility. -Flomax discontinued 04/06 due to persistent hypotension but will restart (12) Dysarthria ICD Codes: R47.1 - Dysarthria and anarthria Status: Acute Plan: Stable--mild slurred speech no change from baseline in rehab -Speech therapy consult for eval and therapy as needed -Low dysphagia or aspiration risk at present (13) FEN/GI/PPx Status: Acute Plan: Fluids: heplock and do strict Is and Os to be sure he gets enough fluid Electrolytes: wnl, will monitor daily BMP and replete as necessary Nutrition: Heart healthy diet and will allow his to bring in external food items and add Boost/Ensure supplements with meals to encourage PO intake GI: Protonix 40mg PO daily PPx: Heme and pharmacy dosing Coumadin due to hypercoagulability; also on ASA 81mg; SCDs bilaterally for mechanical AC as well to help with the post DVT edema PT eval and treat OT eval and treat (14) Saddle embolism of pulmonary artery ICD Codes: I26.92 - Saddle embolus of pulmonary artery without acute cor pulmonale Status: Resolved Plan: -CTA on 03/23 remarkable for saddle embolus with clot seen in both the right and left central pulmonary arteries. -Echo 2D doppler ordered for concerns of heart strain, results unremarkable for R heart strain Hematology consult and plan as above (15) CVA (cerebral vascular accident) ICD Codes: I63.9 - Cerebral infarction, unspecified Status: Acute Plan: -Neurology consulted previously, now signed off -Recommend systemic full intensity anticoagulation in the setting of hypercoagulable state. Hematology consulted as above -Continue Aspirin, Effient discontinued, as above bridged to warfarin with Hematology and pharmacy dosing -Neurologically stable -Neurosurgery consulted previously, now signed off -CT head reviewed, nonoperative mgt -Palliative care consulted on previous hospitalization; will consider reconsulting if pt status declines Previous Workup: Patient with slurred speech on 03/[address] and MRI showing R cerebellar edema and infarction consistent with CVA. -Head CT: 3.5 x 3.6 cm low attenuation area in the right cerebellar hemisphere area most characteristic of edema which could be secondary to underlying mass or infarction. Second smaller focal peripheral area of decreased attenuation involving the right parietal occipital watershed region concerning for edema as well. Further evaluation with MRI recommended. -Brain MRI: Proximally 5cm infarct of the right cerebellar hemisphere with small punctate infarcts in the right occipital lobe and left parietal lobe. Remote lacunar infarcts of the right basal ganglia and cerebellum. -Head MRA: Patient within normal limits for age -Neck MRA: No significant stenosis in the carotid arteries. Left vertebral artery is dominant. -Neck CTA: Minimal calcific plaquing nonstenotic bilateral carotid bulbs and initial segment of the right internal carotid. -Repeat Brain MRI: no significant change in the appearance of large acute infarction involving the right cerebellum as well as the much smaller acute infarctions involving the right occipital lobe and left high parietal cortex. 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) ICD Codes: D75.82 - Heparin induced thrombocytopenia (HIT) Status: Acute Plan: HIIT antibody positive last hospitalization -Refrain from using Heparin if possible (17) PAD (peripheral artery disease) ICD Codes: I73.9 - Peripheral vascular disease, unspecified Status: Chronic Plan: As above -Pt with recent fempop bypass, failed tPA therapy -Vascular surgery consulted during last hospitalization (Dr Hernandez) Problem Qualifiers (1) Hypotension: Qualified Codes: I95.1 - Orthostatic hypotension (2) DVT (deep venous thrombosis): (3) Aorta aneurysm: Qualified Codes: I71.9 - Aortic aneurysm of unspecified site, without rupture (4) HTN (hypertension): Qualified Codes: I10 - Essential (primary) hypertension (5) CAD (coronary artery disease): Qualified Codes: I25.10 - Atherosclerotic heart disease of [place] coronary artery without angina pectoris (6) BPH (benign prostatic hyperplasia): Qualified Codes: N40.1 - Benign prostatic hyperplasia with lower urinary tract symptoms; N13.8 - Other obstructive and reflux uropathy (7) Saddle embolism of pulmonary artery: Qualified Codes: I26.92 - Saddle embolus of pulmonary artery without acute cor pulmonale (8) CVA (cerebral vascular accident): Qualified Codes: I63.341 - Cerebral infarction due to thrombosis of right cerebellar artery Arianne Tang MD Apr 08, 2017 13:03
[2017-04-08] MEDS ORDERED: WARFARIN SOD 1 MG TAB PO SCH (16:00)
[2017-04-10] MEDS ORDERED: WARFARIN SOD 2 MG TAB PO SCH (16:00)
== END 2017-04-08 13:15 | DRG 640 ==
LOC: N04A 17:25
PROVIDERS: ADMIT Family Medicine; ATTEND Family Medicine
DX: E86.0 Dehydration (principal); I26.92 Saddle embolus of pulmonary artery without acute cor pulmonale; I82.409 Acute embolism and thrombosis of unspecified deep veins of unspecified lower extremity; D68.59 Other primary thrombophilia; I25.3 Aneurysm of heart; I95.9 Hypotension, unspecified; I27.82 Chronic pulmonary embolism; D69.6 Thrombocytopenia, unspecified; E27.40 Unspecified adrenocortical insufficiency; N39.0 Urinary tract infection, site not specified; Q21.1 Atrial septal defect; N13.8 Other obstructive and reflux uropathy; I27.20 Pulmonary hypertension, unspecified; I71.2 Thoracic aortic aneurysm, without rupture; I48.0 Paroxysmal atrial fibrillation; I10 Essential (primary) hypertension; D75.1 Secondary polycythemia; K21.9 Gastro-esophageal reflux disease without esophagitis; I25.2 Old myocardial infarction; I25.10 Atherosclerotic heart disease of native coronary artery without angina pectoris; R97.8 Other abnormal tumor markers; R97.0 Elevated carcinoembryonic antigen [CEA]; I70.209 Unspecified atherosclerosis of native arteries of extremities, unspecified extremity; N40.1 Benign prostatic hyperplasia with lower urinary tract symptoms; R19.00 Intra-abdominal and pelvic swelling, mass and lump, unspecified site; I69.322 Dysarthria following cerebral infarction; J44.9 Chronic obstructive pulmonary disease, unspecified; G47.30 Sleep apnea, unspecified; B96.1 Klebsiella pneumoniae [K. pneumoniae] as the cause of diseases classified elsewhere; F06.31 Mood disorder due to known physiological condition with depressive features; F32.9 Major depressive disorder, single episode, unspecified; Z66 Do not resuscitate; Z79.01 Long term (current) use of anticoagulants; Z87.74 Personal history of (corrected) congenital malformations of heart and circulatory system; Z87.820 Personal history of traumatic brain injury; Z91.010 Allergy to peanuts; Z91.018 Allergy to other foods; Z95.5 Presence of coronary angioplasty implant and graft
CPT/HCPCS: 80048; 80053; 82607; 82728; 82746; 83010; 83540; 83550; 83615; 85025; 85610; 93005; 94640; J0696; J7030; J7512